=== PATIENT | female | born 1970 | race Two or more races ===

== ENCOUNTER 2019-12-03 12:30 | Outpatient (REF) | payer BC, SELFPAY ==
--- NOTE | 2019-12-03 | US_ITS ---
EXAMINATION: MM DIAGNOSTIC DIGITAL BREAST TOMOSYNTHESIS, BILATERAL US DIAGNOSTIC ULTRASOUND BREAST, BILATERAL CLINICAL INFORMATION: 49-year-old with bilateral breast pain. Also palpable area of concern mid 3:00 position right breast noted by patient. Family history breast cancer in mother and aunt. The risk of breast cancer based on the Tyrer-Cuzick Model is 11%. COMPARISON: Outside mammography 11/20/2018, 11/19/2017, 10/11/2016 ([place]). TECHNIQUE: Digital breast tomosynthesis is performed in both the craniocaudal and mediolateral oblique views along with computer-aided detection (CAD). Synthesized 2D images are generated from the tomosynthesis. Additional left MLO view is provided. Ultrasound bilateral breasts is performed using grayscale imaging and color Doppler without and with harmonics. The left breast is imaged 12:00 through 5:00 position. The right breast is imaged to o'clock through 4:00 position and 7:00 through 12:00 position. FINDINGS: Mammography: There are scattered areas of fibroglandular density (ACR BI-RADS breast composition Category b). Parenchymal pattern is similar to the prior outside studies. The left breast again has biopsy clip marker upper outer quadrant. There is no interval mass or architectural abnormality or abnormal calcifications in either breast. The right breast has stable nodule central mid 8:00 position measuring just under 1 cm. There is an adjacent satellite nodule which is decreased in size since 2017. The axilla and skin contours are unremarkable. There is no skin thickening or coarsening of the Tony's ligaments. Ultrasound: Targeted ultrasound left breast shows no cystic or solid mass or architectural abnormality. There is no focal duct ectasia. No skin thickening or edema tracking in soft tissue planes. Targeted ultrasound right breast demonstrates no architectural abnormality, duct ectasia, skin thickening, or edema tracking in soft tissue planes. There is no ultrasound correlate for patient's area of palpable concern medial breast. There are 2 circumscribed complicated cysts 9:00 position 10 cm from nipple corresponding to the chronic nodularity on mammography. The larger measures 0.6 cm and has appearance of an acorn cyst/apocrine metaplasia. No associated color flow. There is increased through transmission of sound. Results are discussed with the patient at time of visit. Patient should be managed based on the clinical impression. If clinically indicated, further evaluation may be considered with surgical consult. Decision to proceed with biopsy should be based on clinical grounds and degree of clinical concern. IMPRESSION: 1. No mammographic evidence of malignancy or focal inflammatory changes. 2. Unremarkable targeted left breast ultrasound. 3. Stable nodularity central 8:00 to 9:00 right breast similar to outside exams. No ultrasound correlate for patient's palpable concern inner quadrant. ASSESSMENT: BI-RADS 2: Benign RECOMMENDATION: 1. Patient's bilateral breast pain should be managed based on the clinical impression. If there is clinical concern for palpable finding, further evaluation may be considered with surgical consult. Decision to proceed with biopsy should be based on clinical grounds and degree of clinical concern. 2. Otherwise, routine annual screening mammography. This patient's information was entered into a reminder system with a target due date for their next mammogram.
== END 2019-12-03 12:31 | disposition home or self-care (01) ==
LOC: HO.MAMMO 12:30
PROVIDERS: Visit Provider Internal Medicine
DX: N64.4 Mastodynia (principal); Z80.3 Family history of malignant neoplasm of breast
CPT/HCPCS: 76642; 77062; 77066; 78013

== ENCOUNTER 2019-12-21 13:16 | Outpatient (REF) | payer BC, SELFPAY ==
[2019-12-21 15:01] LABS: MANUAL DIFF FLAG NO
[2019-12-21 15:12] LABS: Basophils Percent Auto 0.2 % (0-2); Eosinophils Absolute Auto 0.1 X10*3/uL (0.0-0.4); Eosinophils Percent Auto 1.3 % (0-4); Hematocrit 43.2 % (37-47); Hemoglobin 14.8 g/dl (12.0-16.0); Imm Gran Abs Auto 0.02 X10*3/uL (0.00-0.03); Imm Gran Pct Auto 0.2 % (0.0-0.4); Lymphocytes Absolute Auto 2.7 X10*3/uL (1.2-4.9); Lymphocytes Percent Auto 32.3 % (20-40); Mean Corpuscular HGB Conc 34.3 g/dl (31.0-35.0); Mean Corpuscular Hemoglobin 32.2 pg (27.0-33.0); Mean Corpuscular Volume 94.1 fL (80-98); Mean Platelet Volume 11.6 fL (9.4-12.3); Monocytes Absolute Auto 0.6 X10*3/uL (0.1-1.2); Monocytes Percent Auto 7.2 % (2-11); Neutrophils Absolute Auto 4.8 X10*3/uL (2.0-8.3); Neutrophils Percent Auto 58.8 % (45-73); Platelet Count 205 X10*3/uL (160-400); Red Blood Count 4.59 X10*6/uL (4.20-5.50); Red Cell Distribution Width 11.8 % (11.0-16.0); White Blood Count 8.2 X10*3/uL (4.8-10.8)
[2019-12-21 16:14] LABS: Erythrocyte Sedimentation Rate 10 MM/HR (0-20)
== END 2019-12-21 13:17 | disposition home or self-care (01) ==
LOC: HO.LAB 13:16
PROVIDERS: PCP Internal Medicine; Visit Provider Hospitalist
DX: R74.01 Elevation of levels of liver transaminase levels (principal)
CPT/HCPCS: 36415; 85025; 85652

== ENCOUNTER → 2019-12-25 14:00 | Outpatient (BNVA) | payer BC, SELFPAY | PROVIDERS: PCP Internal Medicine; Referring Provider Internal Medicine; Visit Provider Hospitalist | DX: Z76.89 Persons encountering health services in other specified circumstances (principal) ==

== ENCOUNTER 2020-01-07 13:49 | Outpatient (REF) | payer BC, SELFPAY ==
--- NOTE | 2020-01-07 14:21 | XR_ITS ---
EXAMINATION: XR CHEST CLINICAL INFORMATION: Pneumonia. COMPARISON: Multiple prior studies. Most recent is a chest x-ray of 11/18/2019. TECHNIQUE: 2 views of the chest were obtained. FINDINGS: The mid right lung chest mass has increased in size since the chest x-ray 06/05/2018. Lesion now measures approximately 2.[address] chest with contrast recommended for follow-up. Heart size is normal. No pulmonary vascular congestion. No pleural effusion or pneumothorax. Surgical clips right upper quadrant of abdomen. XR/XR chest 2V IMPRESSION: Right midlung chest mass again demonstrated. CT of chest with contrast recommended for follow-up. This critical result was discussed with Dr. Briggs on 01/07/2020, 3:02 PM and it was ascertained that the content and urgency of the report was understood at the time of direct communication.
[2020-01-07 14:53] LABS: Alanine Aminotransferase 19 U/L (0-31); Albumin Level 3.9 g/dL (3.5-5.0); Alkaline Phosphatase 105 U/L (39-117); Aspartate Amino Transferase 20 U/L (5-31); Bilirubin Direct 0.4 mg/dL (0.0-0.5); Bilirubin Total 0.8 mg/dL (0.0-1.0); Total Protein 6.5 g/dL (6.5-8.0)
[2020-01-07 15:24] LABS: Erythrocyte Sedimentation Rate 10 MM/HR (0-20)
[2020-01-08 12:01] LABS: Myeloperoxidase Antibody <1.0 AI; Proteinase 3 PR3 Antibodies <1.0 AI
== END 2020-01-07 13:50 | disposition home or self-care (01) ==
LOC: HO.LAB 13:49
PROVIDERS: PCP Internal Medicine; Visit Provider Hospitalist
DX: J18.9 Pneumonia, unspecified organism (principal); R74.01 Elevation of levels of liver transaminase levels; M05.9 Rheumatoid arthritis with rheumatoid factor, unspecified; D86.9 Sarcoidosis, unspecified; R06.02 Shortness of breath; R00.1 Bradycardia, unspecified; R42 Dizziness and giddiness
CPT/HCPCS: 36415; 71046; 80076; 85652; 86021; 93005

== ENCOUNTER → 2020-01-15 14:48 | Outpatient (BNVA) | payer BC, SELFPAY | PROVIDERS: PCP Internal Medicine; Referring Provider Internal Medicine; Visit Provider Hospitalist | DX: R91.8 Other nonspecific abnormal finding of lung field (principal); J18.9 Pneumonia, unspecified organism; D86.9 Sarcoidosis, unspecified; M05.9 Rheumatoid arthritis with rheumatoid factor, unspecified; Z23 Encounter for immunization | CPT/HCPCS: 90686 ==

== ENCOUNTER 2020-01-19 10:31 | Outpatient (REF) | payer BC, SELFPAY ==
[2020-01-19 12:59] LABS: MANUAL DIFF FLAG NO
[2020-01-19 13:10] LABS: Basophils Percent Auto 0.1 % (0-2); Eosinophils Absolute Auto 0.1 X10*3/uL (0.0-0.4); Hematocrit 41.1 % (37-47); Hemoglobin 14.3 g/dl (12.0-16.0); Imm Gran Abs Auto 0.03 X10*3/uL (0.00-0.03); Imm Gran Pct Auto 0.4 % (0.0-0.4); Lymphocytes Absolute Auto 1.7 X10*3/uL (1.2-4.9); Lymphocytes Percent Auto 22.1 % (20-40); Mean Corpuscular HGB Conc 34.8 g/dl (31.0-35.0); Mean Corpuscular Hemoglobin 32.1 pg (27.0-33.0); Mean Corpuscular Volume 92.2 fL (80-98); Mean Platelet Volume 11.5 fL (9.4-12.3); Monocytes Absolute Auto 0.6 X10*3/uL (0.1-1.2); Monocytes Percent Auto 8.3 % (2-11); Neutrophils Absolute Auto 5.2 X10*3/uL (2.0-8.3); Neutrophils Percent Auto 68.1 % (45-73); Platelet Count 195 X10*3/uL (160-400); Red Blood Count 4.46 X10*6/uL (4.20-5.50); Red Cell Distribution Width 11.9 % (11.0-16.0); White Blood Count 7.7 X10*3/uL (4.8-10.8)
[2020-01-19 13:48] LABS: Alanine Aminotransferase 16 U/L (0-31); Albumin Level 3.9 g/dL (3.5-5.0); Alkaline Phosphatase 107 U/L (39-117); Anion Gap 8 (12-20); Aspartate Amino Transferase 19 U/L (5-31); Blood Urea Nitrogen 14 mg/dL (9-16); C Reactive Protein 0.09 mg/dL (< or = 0.50); Calcium 8.6 mg/dL (8.4-10.2); Carbon Dioxide 30 mmol/L (22-29); Chloride 105 mmol/L (96-108); Estimated Glomerular Filt Rate > 60; Glucose Random 82 mg/dL (60-115); Potassium 4.1 mmol/l (3.3-5.1); Sodium 139 mmol/L (135-145); Total Protein 6.7 g/dL (6.5-8.0)
[2020-01-19 14:19] LABS: Erythrocyte Sedimentation Rate 16 MM/HR (0-20)
[2020-01-21 18:42] LABS: TS Negative Control Passed; TS Panel A 1; TS Panel B 0; TS Positive Control Passed; TSpotTB Negative (SeeBelow)
== END 2020-01-19 10:32 | disposition home or self-care (01) ==
LOC: HO.LAB 10:31
PROVIDERS: PCP Internal Medicine; Referring Provider Internal Medicine; Visit Provider Student in an Organized Health Care Education/Training Program
DX: M05.9 Rheumatoid arthritis with rheumatoid factor, unspecified (principal); D68.9 Coagulation defect, unspecified
CPT/HCPCS: 36415; 80053; 85025; 85652; 86140; 86481

== ENCOUNTER → 2020-01-27 08:21 | Outpatient (REF) | payer BC, SELFPAY ==
--- NOTE | 2020-01-27 08:30 | CA_ITS ---
Transthoracic Echocardiogram Patient (Last, First, Middle): Marisabel Rutherford, Gender: Female Date of : 1970 Age: 49 Procedure Date: 01/27/2020 Procedure Type: Transthoracic Echocardiogram Location: OP Height: 157.48 cm Weight: 88.45 kg BSA: 1.89 m2 Heart Rate: bpm BP: 128 / 80 mmHg Product Engineering Manager: JG Esquivel MD: Kerwin Paige MD Forming Tube Selector: Jeremy Santizo MD Symptoms: R06.02 - Shortness of breath Study Quality: Good ECG Rhythm: Sinus Conclusions: - Normal study Findings Left Ventricle Normal left ventricular size, thickness, and systolic function. The visually estimated ejection fraction is between 60-65%. Diastolic function is normal for age. Right Ventricle Normal right ventricular cavity size and systolic function. Atria Both atria are normal in size. There is no evidence of interatrial shunt. Aortic Valve Normal aortic valve structure and function. There is no aortic valve stenosis. There is no aortic valve regurgitation. Mitral Valve Normal mitral valve structure and function. There is trace mitral valve regurgitation. There is no mitral valve stenosis. Pulmonic Valve The pulmonic valve is likely normal. There is trace pulmonic valve regurgitation. Tricuspid Valve Normal tricuspid valve structure. There is trace tricuspid valve regurgitation. The right ventricular systolic pressure is normal. The right ventricular systolic pressure is 23 mmHg. Normal right atrial pressure. There is no evidence of pulmonary hypertension. Great Vessels All visible segments of the aorta are normal in size. The pulmonary artery was not well visualized. Venous The inferior vena cava is normal in size and collapses greater than 50% with inspiration. Pericardium/Pleural There is no evidence of pericardial effusion. Prior Study Comparison No prior study available for comparison. Measurements 2D Linear Measurements IVSd: 1.05 0.6-0.9/0.6-1.0 cm LVIDd: 4.91 3.9-5.3/4.2-5.9 cm LVIDd Index: 2.60 2.4-3.2/2.2-3.1 cm/m2 LVIDs: 3.07 2.0-3.6 cm LVPWd: 0.90 0.7-1.1 cm Ao Root: 3.00 2.1-3.5 cm LA Diam: 4.10 2.7-3.8/3.0-4.0 cm LAIDs Index: 2.17 1.5-2.3 cm/m2 LV Mass: 212.20 67-162/88-224 g LV Mass Index: 112.27 43-95/49-115 g/m2 LVOT Diam: 2.30 3.0+(-)1.3 cm 2D Systolic Function EF 4C: 60.00 >55% EF 2C: 56.20 >55% EF BiP: 57.20 >55% Mitral Valve MV Pk E: 0.88 MV PK A: 0.76 MV Decel Time: 204.00 E/A: 1.20 E'Lateral: 15.10 E'Medial: 10.90 E/E' Med: 8.10 E/E' Lat: 5.80 PHT: 60.00 MVA PHT: 3.67 Decel Ceiba: 4.30 Aortic Valve AoV Pk Derek: 1.38 AoV Mn Derek: 0.84 AoV VTI: 0.36 AoV Pk Grad: 8.00 Aov Mn Grad: 3.00 [place] Cont.VTI: 2.90 LVOT LVOT Pk Derek: 1.03 LVOT Mn Derek: 0.62 LVOT VTI: 0.25 LVOT Pk Grad: 4.00 LVOT Mn Grad: 2.00 LVOT Diam: 2.30 LVOT Area: 4.15 Diastolic Function MV Pk E: 0.88 MV Pk A: 0.76 E/A: 1.20 E'Medial: 10.90 E/E' Med: 8.10 E' Laterial: 15.10 E/E' Lat: 5.80 Tricuspid Valve TR Pk Derek: 2.24 TR Pk Grad: 20.00 RA Press: 3.00 RVSP: 23.00 Great Vessels Aorta Ao Root-2D: 3.00 2.0-3.7 cm Ao Asc: 3.00 2.1-3.4 cm Pulmonary Valve PV Pk Derek: 0.88 Peak PV Grad: 3.00 Updated in Other Vendor System with Status of Final Jeremy Santizo MD electronically signed on 01/27/2020 1:26:45 PM with status of Final
--- NOTE | 2020-01-27 09:30 | CA_ITS ---
Acquisition Time: 2020-01-27 11:04:27 Total Exercise Time: 00:06:50 Test Indications: sob Medications: see chart Protocol: DAYLIN Max HR: 153 BPM 88% of Pred: 173 BPM Max BP: 118/070 mmHG Max Work Load: 8.2 METS Exercise stress test using Daylin protocol, total of 6 min 50 sec. METS 8.2, MHR up to 88%. Pt tolerated well, some SOB, took her own inhalor before exercise 2 puffs. Denies any anginal sx. EKG without any arrhythmias, no ischemic changes noted. Pt's EKG hard to read at peak exercise d/t artifacts, however immediately in recovery no changes noted. Nuclear images to follow. Normotensive response to exercise. Test reviewed with Dr. Paige Referred By: Kerwin Paige Overread By: Sandra Segura
--- NOTE | 2020-01-27 10:56 | NM_ITS ---
Exercise Myocardial perfusion study Indication: Shortness of breath evaluate for myocardial ischemia Technique: The patient was brought in for an exercise perfusion study on 01/27/2020. Patient performed exercise as per [facility] protocol and was injected 30 mCi of sestamibi was given intravenously one target HR was achieved. Images were obtained using the SPECT gamma camera interlaced with the gating device. Images were obtained in supine position. Resting perfusion study was performed on 02/01/2020. Patient was administered 30 mCi of sestamibi intravenously at rest. Images were then obtained in supine position. Images obtained with and without CT attenuation. Total DLP 97 mgy-cm. Images were processed with the software and compared side to side in short axis, horizontal long axis and vertical long axis views. Findings: The stress perfusion study was suboptimal due to intense subdiaphragmatic uptake interfering with inferior wall uptake and showed minimally reduced uptake anterolateral wall of the LV myocardium and mildly reduced uptake in the distal inferior wall of the LV myocardium. Attenuation corrected mildly reduced uptake in the apex of the LV myocardium.. The gated study shows normal LV systolic function with calculated LVEF of greater than 70 %. LV cavity is normal in size. The gated study shows normal systolic wall thickening and contraction of all segments. There is no transient ischemic dilation. Resting study suboptimal due to intense subdiaphragmatic uptake interfering with inferior wall uptake and shows non attenuated images show mildly to moderately reduced uptake in the apex and the anterolateral wall of the LV myocardium. Attenuation corrected images show diffusely reduced uptake in the entire myocardium.. Gating at rest reveals normal systolic wall motion with ejection fraction at greater than 70 %. The findings are consistent with likely normal myocardial perfusion. NM/NM cardiolite stress test Impression: 1. Normal myocardial perfusion 2. Gated LVEF is greater than 70% 3. Transient ischemic dilatation not present Stress EKG is negative for ischemia
== END ==
LOC: HO.CARD 08:21
PROVIDERS: Visit Provider Internal Medicine
DX: R00.2 Palpitations (principal); R06.02 Shortness of breath
CPT/HCPCS: 78452; 93017; 93226; 93306; A9500; J2785

== ENCOUNTER → 2020-02-01 12:56 | Outpatient (REF) | payer BC, SELFPAY ==
--- NOTE | 2020-02-01 13:02 | HM_ITS ---
TEST PERFORMED: 30-day event monitoring. INDICATION: Palpitations. ENROLLMENT PERIOD: 02/01/2020 to 03/02/2020 - 30 days. FINDINGS: In the above monitoring period of 30 days, the underlying rhythm was sinus. The average rate ranged from 49 to 86 beats per minute. There was no evidence of any supraventricular or ventricular arrhythmia of concern noted during this time. Symptoms of chest pain and shortness of breath correlated with sinus rhythm on the monitor. MD MITCHEL Jackson/JJ / [id number]
== END ==
LOC: HO.CARD 12:56
PROVIDERS: PCP Internal Medicine; Visit Provider Internal Medicine
DX: R00.2 Palpitations (principal)
CPT/HCPCS: 93270

== ENCOUNTER 2020-02-04 14:52 | Outpatient (REF) | payer BC, SELFPAY ==
--- NOTE | 2020-02-04 14:54 | CT_ITS ---
EXAMINATION: CT CHEST WITHOUT CONTRAST CLINICAL INFORMATION: Right mid lung chest mass. COMPARISON: Chest x-ray 01/07/2020 and 11/18/2019. TECHNIQUE: Multidetector volumetric CT imaging of the chest was done. Axial MIP volume rendering provided. Sagittal and coronal reformatted images were obtained. This CT examination was performed using dose optimization techniques as appropriate, variously including the following: Automated exposure control Adjustment of mA and/or kV according to patient size (this includes techniques or standardized protocols for targeted exams where dose is matched to indication/reason for exam; i.e. extremities or head) Use of iterative reconstruction technique DLP: 130 mGy-cm FINDINGS: FAMILY INTERVENTION SPECIALIST: The lungs are expanded with patchy opacity in thee right parahilar region similar to the chest x-ray. LUNGS: There is a right upper lobe elongated oval-shaped mass measuring 4.0 x 2.0 x 2.2 cm. The mass has a broad base along the minor fissure and measures approximately 3.4 cm in AP dimension. Adjacent to this mass are numerous small nodules. Some of the largest nodules measure 6 mm on axial image 174/7 and a 5 mm nodule right middle lobe axial image 251/7. There is a dense parenchymal opacity of the right middle, question atelectasis. The left lung is well-expanded with plate-like atelectasis of the left upper lobe. MEDIASTINUM: The thyroid lobes are symmetrical and normal. The central trachea and bronchi are widely patent. Heart size and the great vessels are of normal caliber. There are small shotty mediastinal lymph nodes with the largest pretracheal lymph node measuring 1.1 cm. No pericardial effusion is seen. PLEURA: There is no pleural effusion. No pleural mass or thickening. AXILLA: There are small shotty lymph nodes seen in bilateral axilla with the largest lymph measuring 9 mm. UPPER ABDOMEN: Visualized liver, spleen, pancreas and bilateral adrenal glands are unremarkable. The gallbladder has been surgically removed. There are surgical sutures along the GE junction and along the greater curvature of the stomach likely from previous gastric reduction surgery. OSSEOUS STRUCTURES: There is no lytic or sclerotic process seen. CT/CT chest wo con IMPRESSION: Large right upper lobe oval-shaped mass with multiple pulmonary nodules in the right upper lobe and right middle lobe. In addition, there is a dense patchy opacity in the right middle lobe. Focal atelectasis, left upper lobe. Differential diagnoses include infectious or inflammatory process. However, primary lung cancer with metastasis is not excluded. Small shotty lymph nodes seen in the mediastinum.
== END 2020-02-04 14:53 | disposition home or self-care (01) ==
LOC: HO.CT 14:52
PROVIDERS: Visit Provider Hospitalist
DX: R91.8 Other nonspecific abnormal finding of lung field (principal)
CPT/HCPCS: 71250

== ENCOUNTER → 2020-02-05 14:59 | Outpatient (BNVA) | payer BC, SELFPAY | PROVIDERS: PCP Internal Medicine; Referring Provider Internal Medicine; Visit Provider Hospitalist | DX: Z76.89 Persons encountering health services in other specified circumstances (principal) ==

== ENCOUNTER 2020-02-09 14:26 | Outpatient (REF) | payer BC, SELFPAY ==
--- NOTE | 2020-02-09 14:44 | XR_ITS ---
EXAMINATION: XR CHEST CLINICAL INFORMATION: Interstitial pulmonary disease COMPARISON: Previous chest x-rays most recent 01/07/[address] 02/04/2020 TECHNIQUE: 2 views of the chest were obtained. FINDINGS: The cardiac and mediastinal contours are stable. There is still a right upper lobe perihilar infiltrate and infiltrate in the right lung base in the right middle lobe. This appears unchanged from recent exams. The left lung is clear. There is no pleural effusion or pneumothorax. Bony structures are unremarkable. XR/XR chest 2V IMPRESSION: No change in right-sided infiltrates from previous exam.
[2020-02-09 15:02] LABS: MANUAL DIFF FLAG NO
[2020-02-09 15:04] LABS: Basophils Percent Auto 0.3 % (0-2); Eosinophils Absolute Auto 0.1 X10*3/uL (0.0-0.4); Eosinophils Percent Auto 1.3 % (0-4); Hematocrit 43.3 % (37-47); Hemoglobin 14.9 g/dl (12.0-16.0); Imm Gran Abs Auto 0.02 X10*3/uL (0.00-0.03); Imm Gran Pct Auto 0.3 % (0.0-0.4); Lymphocytes Absolute Auto 1.6 X10*3/uL (1.2-4.9); Lymphocytes Percent Auto 23.4 % (20-40); Mean Corpuscular HGB Conc 34.4 g/dl (31.0-35.0); Mean Corpuscular Hemoglobin 31.5 pg (27.0-33.0); Mean Corpuscular Volume 91.5 fL (80-98); Mean Platelet Volume 11.1 fL (9.4-12.3); Monocytes Absolute Auto 0.6 X10*3/uL (0.1-1.2); Monocytes Percent Auto 7.8 % (2-11); Neutrophils Absolute Auto 4.7 X10*3/uL (2.0-8.3); Neutrophils Percent Auto 66.9 % (45-73); Platelet Count 214 X10*3/uL (160-400); Red Blood Count 4.73 X10*6/uL (4.20-5.50)
[2020-02-09 15:29] LABS: Alanine Aminotransferase 17 U/L (0-31); Albumin Level 4.2 g/dL (3.5-5.0); Alkaline Phosphatase 117 U/L (39-117); Anion Gap 11 (12-20); Aspartate Amino Transferase 20 U/L (5-31); Bilirubin Direct 0.4 mg/dL (0.0-0.5); Bilirubin Total 1.2 mg/dL (0.0-1.0); Blood Urea Nitrogen 11 mg/dL (9-16); Calcium 8.8 mg/dL (8.4-10.2); Carbon Dioxide 25 mmol/L (22-29); Chloride 107 mmol/L (96-108); Estimated Glomerular Filt Rate > 60; Glucose Random 87 mg/dL (60-115); Sodium 139 mmol/L (135-145); Total Protein 7.1 g/dL (6.5-8.0)
[2020-02-09 15:53] LABS: Erythrocyte Sedimentation Rate 6 MM/HR (0-20)
[2020-02-20 05:22] LABS: Angiotensin Converting Enzyme 9 U/L (9-67)
== END 2020-02-09 14:27 | disposition home or self-care (01) ==
LOC: HO.LAB 14:26
PROVIDERS: PCP Internal Medicine; Visit Provider Hospitalist
DX: J84.9 Interstitial pulmonary disease, unspecified (principal)
CPT/HCPCS: 36415; 71046; 80048; 80076; 82164; 85025; 85652

== ENCOUNTER → 2020-03-01 14:59 | Outpatient (BNVA) | payer BC, SELFPAY | PROVIDERS: PCP Internal Medicine; Visit Provider Hospitalist | DX: Z76.89 Persons encountering health services in other specified circumstances (principal) ==

== ENCOUNTER → 2020-03-02 15:26 | Outpatient (BNVA) | payer BC, SELFPAY | PROVIDERS: PCP Internal Medicine; Visit Provider Student in an Organized Health Care Education/Training Program | DX: Z76.89 Persons encountering health services in other specified circumstances (principal) ==

== ENCOUNTER 2020-03-21 14:23 | Outpatient (REF) | payer BC, SELFPAY | END 2020-03-21 14:24 | disposition home or self-care (01) | LOC: HO.LAB 14:23 | PROVIDERS: Visit Provider Internal Medicine | DX: Z20.822 Contact with and (suspected) exposure to COVID-19 (principal) | CPT/HCPCS: 36415; C9803; U0003 ==

== ENCOUNTER 2020-03-25 13:21 | Outpatient (REF) | payer BC, SELFPAY ==
[2020-03-25 13:47] LABS: MANUAL DIFF FLAG NO
[2020-03-25 14:06] LABS: Basophils Percent Auto 0.3 % (0-2); Eosinophils Absolute Auto 0.1 X10*3/uL (0.0-0.4); Eosinophils Percent Auto 1.2 % (0-4); Hematocrit 41.9 % (37-47); Hemoglobin 14.2 g/dl (12.0-16.0); Imm Gran Abs Auto 0.02 X10*3/uL (0.00-0.03); Imm Gran Pct Auto 0.3 % (0.0-0.4); Lymphocytes Absolute Auto 1.6 X10*3/uL (1.2-4.9); Lymphocytes Percent Auto 27.1 % (20-40); Mean Corpuscular HGB Conc 33.9 g/dl (31.0-35.0); Mean Corpuscular Hemoglobin 30.9 pg (27.0-33.0); Mean Corpuscular Volume 91.3 fL (80-98); Mean Platelet Volume 11.1 fL (9.4-12.3); Monocytes Absolute Auto 0.4 X10*3/uL (0.1-1.2); Monocytes Percent Auto 7.1 % (2-11); Neutrophils Absolute Auto 3.9 X10*3/uL (2.0-8.3); Platelet Count 222 X10*3/uL (160-400); Red Blood Count 4.59 X10*6/uL (4.20-5.50); Red Cell Distribution Width 11.8 % (11.0-16.0); White Blood Count 6.1 X10*3/uL (4.8-10.8)
[2020-03-25 14:37] LABS: Alanine Aminotransferase 14 U/L (0-31); Albumin Level 4.3 g/dL (3.5-5.0); Alkaline Phosphatase 96 U/L (39-117); Anion Gap 13 (12-20); Aspartate Amino Transferase 19 U/L (5-31); Bilirubin Direct 0.4 mg/dL (0.0-0.5); Bilirubin Total 1.1 mg/dL (0.0-1.0); Blood Urea Nitrogen 12 mg/dL (9-16); C Reactive Protein 0.03 mg/dL (< or = 0.50); Calcium 9.1 mg/dL (8.4-10.2); Carbon Dioxide 26 mmol/L (22-29); Chloride 106 mmol/L (96-108); Estimated Glomerular Filt Rate > 60; Glucose Random 90 mg/dL (60-115); Potassium 4.2 mmol/l (3.3-5.1); Sodium 141 mmol/L (135-145); Total Protein 7.2 g/dL (6.5-8.0)
[2020-03-25 15:14] LABS: Erythrocyte Sedimentation Rate 16 MM/HR (0-20)
[2020-03-29 12:22] LABS: Vitamin D 25-OH, D2 34 ng/mL; Vitamin D 25-OH, D3 8 ng/mL; Vitamin D 25-OH, Total 42 ng/mL (30-100)
== END 2020-03-25 13:22 | disposition home or self-care (01) ==
LOC: HO.LAB 13:21
PROVIDERS: Absent Provider Student in an Organized Health Care Education/Training Program; PCP Internal Medicine; Visit Provider Hospitalist
DX: M05.9 Rheumatoid arthritis with rheumatoid factor, unspecified (principal); J84.9 Interstitial pulmonary disease, unspecified
CPT/HCPCS: 36415; 80053; 80076; 82248; 82306; 85025; 85652; 86140

== ENCOUNTER 2020-03-29 14:39 | Outpatient (REF) | payer BC, SELFPAY ==
--- NOTE | 2020-03-29 14:46 | XR_ITS ---
EXAMINATION: XR CHEST CLINICAL INFORMATION: Interstitial pulmonary disease. COMPARISON: None TECHNIQUE: 2 views of the chest were obtained. FINDINGS: The lungs are well-expanded with focal patchy opacity in the right middle lobe and right upper lobe consistent with infiltrates. The left lung is clear. The heart size and pulmonary vascularity is normal. No gross bony abnormality seen. XR/XR chest 2V IMPRESSION: Right upper lobe and right middle lobe infiltrates.
== END 2020-03-29 14:40 | disposition home or self-care (01) ==
LOC: HO.XRAY 14:39
PROVIDERS: PCP Internal Medicine; Visit Provider Hospitalist
DX: J84.9 Interstitial pulmonary disease, unspecified (principal); D86.9 Sarcoidosis, unspecified
CPT/HCPCS: 71046

== ENCOUNTER 2020-04-14 08:01 | Outpatient (REF) | payer BC, SELFPAY ==
--- NOTE | ~2020-04-14 | CT_ITS ---
EXAMINATION: CT CHEST WITH CONTRAST CLINICAL INFORMATION: Right upper lobe and right middle lobe infiltrates. COMPARISON: Chest x-ray 03/29/2020. TECHNIQUE: Multidetector volumetric CT imaging of the chest was obtained after the administration of 50 mL of Omnipaque 350 intravenous contrast without immediate adverse reactions. Axial MIP volume rendering provided. Sagittal and coronal reformatted images were obtained. This CT examination was performed using dose optimization techniques as appropriate, variously including the following: *Automated exposure control *Adjustment of mA and/or kV according to patient size (this includes techniques or standardized protocols for targeted exams where dose is matched to indication/reason for exam; i.e. extremities or head) *Use of iterative reconstruction technique DLP: 119 mGy-cm FINDINGS: MALE IMPERSONATOR: Expanded lungs with a right parahilar soft tissue density. LUNGS: The lungs are well expanded with moderate consolidation right upper lobe parahilar region and right lower lobe. There is a 4 mm nodule right upper lobe at the junction of major and minor fissure, image 26/4, 3 mm nodule right upper lobe axial image 16/4, ill-defined 2 mm nodule left upper lobe image 18/4 and clusters of 3 mm nodules in the right upper lobe image 24/4. MEDIASTINUM: The thyroid lobes are symmetrical with hypodense left thyroid nodule. The central trachea and bronchi are widely patent. The heart size and the great vessels are normal caliber. No pericardial effusion seen. PLEURA: There is no pleural effusion. No pleural mass or thickening. AXILLA: There are small shotty lymph nodes in the axilla. UPPER ABDOMEN: Visualized liver, spleen, pancreas and adrenal glands are unremarkable. The gallbladder has been surgically removed. OSSEOUS STRUCTURES: Mild spondylosis dorsal spine. CT/CT chest w con IMPRESSION: Right upper lobe and right middle lobe consolidation/infiltrates. Scattered pulmonary lung nodules as described above.
[2020-04-14] MEDS: iohexoL 350 MG/ML 100 ML INFUS..BTL 65 ML IV (09:08)
== END 2020-04-14 08:02 | disposition home or self-care (01) ==
LOC: HO.CT 08:01
PROVIDERS: Visit Provider Hospitalist
DX: R91.8 Other nonspecific abnormal finding of lung field (principal); R59.1 Generalized enlarged lymph nodes
CPT/HCPCS: 71260; Q9967

== ENCOUNTER 2020-04-28 15:37 | Outpatient (REF) | payer BC, SELFPAY ==
[2020-04-28 17:02] LABS: MANUAL DIFF FLAG NO
[2020-04-28 17:12] LABS: Basophils Percent Auto 0.3 % (0-2); Eosinophils Absolute Auto 0.1 X10*3/uL (0.0-0.4); Eosinophils Percent Auto 0.9 % (0-4); Hematocrit 41.3 % (37-47); Hemoglobin 14.4 g/dl (12.0-16.0); Imm Gran Abs Auto 0.01 X10*3/uL (0.00-0.03); Imm Gran Pct Auto 0.1 % (0.0-0.4); Lymphocytes Absolute Auto 1.9 X10*3/uL (1.2-4.9); Lymphocytes Percent Auto 28.3 % (20-40); Mean Corpuscular HGB Conc 34.9 g/dl (31.0-35.0); Mean Corpuscular Hemoglobin 31.5 pg (27.0-33.0); Mean Corpuscular Volume 90.4 fL (80-98); Mean Platelet Volume 11.4 fL (9.4-12.3); Monocytes Absolute Auto 0.5 X10*3/uL (0.1-1.2); Monocytes Percent Auto 7.3 % (2-11); Neutrophils Absolute Auto 4.3 X10*3/uL (2.0-8.3); Neutrophils Percent Auto 63.1 % (45-73); Platelet Count 215 X10*3/uL (160-400); Red Blood Count 4.57 X10*6/uL (4.20-5.50); Red Cell Distribution Width 11.9 % (11.0-16.0); White Blood Count 6.7 X10*3/uL (4.8-10.8)
[2020-04-28 17:32] LABS: Alanine Aminotransferase 21 U/L (0-31); Albumin Level 4.3 g/dL (3.5-5.0); Alkaline Phosphatase 107 U/L (39-117); Anion Gap 15 (12-20); Aspartate Amino Transferase 23 U/L (5-31); Bilirubin Direct 0.4 mg/dL (0.0-0.5); Bilirubin Total 1.1 mg/dL (0.0-1.0); Blood Urea Nitrogen 13 mg/dL (9-16); C Reactive Protein 0.08 mg/dL (< or = 0.50); Calcium 9.3 mg/dL (8.4-10.2); Carbon Dioxide 26 mmol/L (22-29); Chloride 106 mmol/L (96-108); Estimated Glomerular Filt Rate > 60; Glucose Random 89 mg/dL (60-115); Lipase 27 U/L (8-78); Potassium 4.5 mmol/L (3.3-5.1); Sodium 142 mmol/L (135-145); Total Protein 7.5 g/dL (6.5-8.0)
[2020-04-28 18:16] LABS: Erythrocyte Sedimentation Rate 19 MM/HR (0-20)
[2020-05-01 15:11] LABS: TS Negative Control Passed; TS Panel A 0; TS Panel B 0; TS Positive Control Passed; TSpotTB Negative (SeeBelow)
== END 2020-04-28 15:38 | disposition home or self-care (01) ==
LOC: HO.LAB 15:37
PROVIDERS: Student in an Organized Health Care Education/Training Program; PCP Internal Medicine; Visit Provider Hospitalist
DX: J84.9 Interstitial pulmonary disease, unspecified (principal); R91.8 Other nonspecific abnormal finding of lung field; M05.9 Rheumatoid arthritis with rheumatoid factor, unspecified; D86.2 Sarcoidosis of lung with sarcoidosis of lymph nodes; R10.11 Right upper quadrant pain; Z88.8 Allergy status to other drugs, medicaments and biological substances; Z87.891 Personal history of nicotine dependence; Z79.899 Other long term (current) drug therapy
CPT/HCPCS: 36415; 80053; 80076; 82248; 83690; 85025; 85652; 86140; 86481

== ENCOUNTER → 2020-05-06 09:51 | Outpatient (BNVA) | payer BC, SELFPAY | PROVIDERS: PCP Internal Medicine; Visit Provider Surgery | DX: Z13.89 Encounter for screening for other disorder (principal) | CPT/HCPCS: 99215 ==

== ENCOUNTER 2020-05-12 13:58 | Outpatient (REF) | payer BC, SELFPAY ==
--- NOTE | 2020-05-12 17:13 | PFT_ITS ---
FLOWS: FEV1 is 73% of predicted at 1.95 L. FVC 70% of predicted at 2.28 L. FEV1 to FVC ratio of 0.85. No bronchodilator response. LUNG VOLUMES: Total lung capacity 78% of predicted at 3.72 L. Residual volume 85% of predicted at 1.39 L. Slow vital capacity 75% of predicted at 2.33 L. Expiratory reserve volume 42% of predicted at 0.42 L. Diffusion capacity is mildly decreased, diffusion capacity just normal after correction for alveolar ventilation. IMPRESSION: [id number] restrictive ventilatory defect with no bronchodilator response. Decreased expiratory reserve volume suggests extrathoracic restriction, likely secondary to abdominal obesity. Decreased diffusion capacity. Severe decrease in total lung capacity suggests underlying parenchymal lung disease. Clinical correlation is advised. Tanmay Urban MD AP/MODL / [id number]
== END 2020-05-12 13:59 | disposition home or self-care (01) ==
LOC: HO.RESP 13:58
PROVIDERS: Visit Provider Surgery
DX: J84.9 Interstitial pulmonary disease, unspecified (principal)
CPT/HCPCS: 94060; 94727; 94729

== ENCOUNTER → 2020-07-14 14:35 | Outpatient (BNVA) | payer BC, SELFPAY | PROVIDERS: PCP Internal Medicine; Visit Provider Hospitalist ==

== ENCOUNTER 2020-09-19 16:11 | Outpatient (REF) | payer BC, SELFPAY ==
--- NOTE | ~2020-09-19 | XR_ITS ---
EXAMINATION: XR CHEST CLINICAL INFORMATION: Interstitial pulmonary disease COMPARISON: Previous chest x-ray most recent March [address] most recent April 2020 TECHNIQUE: 2 views of the chest were obtained. FINDINGS: The cardiac and mediastinal contours are stable. There is a mass or infiltrate seen in the right middle lobe. This does not appear appreciably changed from March and April 2020 exams. The left lung is clear. There is no pleural effusion or pneumothorax. Bony structures are unremarkable. XR/XR chest 2V IMPRESSION: No change in mass or infiltrate in the right middle lobe from earlier 2020 exams.
--- NOTE | ~2020-09-19 | XR_ITS ---
EXAMINATION: XR ANKLE, RIGHT CLINICAL INFORMATION: Right ankle pain. COMPARISON: None TECHNIQUE: AP, lateral, and mortise views of the right ankle. FINDINGS: There is moderate size lateral malleolar soft tissue swelling. Ankle mortise and subtalar joints are normal. There is a moderate size calcaneal heel enthesophyte. There is a small avulsion fracture tip of medial malleolus. XR/XR ankle RT 2V IMPRESSION: Moderate size lateral malleolar soft tissue swelling. No underlying acute fracture or dislocation. Small avulsion fracture tip of medial malleolus. Moderate-sized calcaneal heel enthesophyte.
[2020-09-19 17:09] LABS: MANUAL DIFF FLAG NO
[2020-09-19 17:14] LABS: Basophils Percent Auto 0.1 % (0-2); Eosinophils Absolute Auto 0.1 X10*3/uL (0.0-0.4); Eosinophils Percent Auto 1.7 % (0-4); Hematocrit 36.9 % (37-47); Hemoglobin 12.9 g/dl (12.0-16.0); Imm Gran Abs Auto 0.02 X10*3/uL (0.00-0.03); Imm Gran Pct Auto 0.3 % (0.0-0.4); Lymphocytes Absolute Auto 1.8 X10*3/uL (1.2-4.9); Mean Corpuscular Hemoglobin 32.2 pg (27.0-33.0); Mean Platelet Volume 11.1 fL (9.4-12.3); Monocytes Absolute Auto 0.6 X10*3/uL (0.1-1.2); Monocytes Percent Auto 7.6 % (2-11); Neutrophils Absolute Auto 4.7 X10*3/uL (2.0-8.3); Neutrophils Percent Auto 65.3 % (45-73); Platelet Count 205 X10*3/uL (160-400); Red Blood Count 4.01 X10*6/uL (4.20-5.50); Red Cell Distribution Width 12.2 % (11.0-16.0); White Blood Count 7.2 X10*3/uL (4.8-10.8)
[2020-09-19 17:29] LABS: Anion Gap 10 (12-20); Blood Urea Nitrogen 12 mg/dL (9-16); Carbon Dioxide 27 mmol/L (22-29); Chloride 109 mmol/L (96-108); Estimated Glomerular Filt Rate > 60; Glucose Random 85 mg/dL (60-115); Potassium 3.8 mmol/L (3.3-5.1); Sodium 142 mmol/L (135-145); Uric Acid 3.6 mg/dL (2.4-5.7)
[2020-09-19 19:03] LABS: Erythrocyte Sedimentation Rate 14 MM/HR (0-20)
== END 2020-09-19 16:12 | disposition home or self-care (01) ==
LOC: HO.LAB 16:11
PROVIDERS: Absent Provider Student in an Organized Health Care Education/Training Program; PCP Internal Medicine; Referring Provider Hospitalist; Visit Provider Internal Medicine
DX: M10.9 Gout, unspecified (principal); J84.9 Interstitial pulmonary disease, unspecified; M25.571 Pain in right ankle and joints of right foot; M05.9 Rheumatoid arthritis with rheumatoid factor, unspecified
CPT/HCPCS: 36415; 71046; 73600; 80048; 84550; 85025; 85652

== ENCOUNTER 2020-09-22 21:25 | Emergency (ER) | payer BC, SELFPAY ==
[2020-09-22 22:26] VITALS: BP 146/79; PULSE 18; RESP 18; TEMP 36.7; O2SAT 100; BMI 33.5
[2020-09-22] MEDS: Acetaminophen 325 MG TABLET 650 MG PO (22:36)
--- NOTE | 2020-09-22 23:58 | ED.LOWEXIN ---
HPI - Extremity Injury (Lower) General Chief Complaint: Extremity Injury, Lower Stated Complaint: ANKLE INJ Time Seen by Provider: 09/22/20 23:58 Source: patient Mode of arrival: ambulatory Limitations: no limitations History of Present Illness HPI Narrative: 50-year-old female presents from her primary care's office for known right lateral malleolar avulsion fracture. Patient does report right ankle and foot pain. MD complaint: foot injury Onset (ago): day(s) (To) Type of Injury: unknown Place: home Severity: moderate Severity scale (1-10): 7 Relieving factors: nothing Exacerbating factors: weight bearing and palpation Associated symptoms: swelling and able to partially bear weight Other symptoms: none Related Data Home Medications Medication Instructions Recorded Confirmed albuterol sulfate mg INHALATION Q6H PRN 12/25/19 09/19/20 cholecalciferol (vitamin D3) 1,250 1,250 mcg PO QWEEK 12/25/19 09/19/20 mcg (50,000 unit) capsule cyanocobalamin (vitamin B-12) 1,000 mcg SUBLINGUAL DAILY 12/25/19 09/19/20 1,000 mcg sublingual tablet ergocalciferol (vitamin D2) 1,250 1,250 mcg PO QWEEK 12/25/19 09/19/20 mcg (50,000 unit) capsule trazodone 50 mg tablet [id number] mg PO BEDTIME PRN 12/25/19 09/19/20 tiotropium bromide 18 mcg capsule 1 cap INHALATION DAILY 01/15/20 09/19/20 with inhalation device prednisone 5 mg tablet 5 mg PO DAILY tab 01/19/20 09/19/20 sucralfate 1 gram tablet PO 02/05/20 09/19/20 mecobalamin (vitamin B12) 1,000 1,000 mcg SUBLINGUAL DAILY 09/19/20 09/19/20 mcg disintegrating tablet,sublingual Previous Rx's Medication Instructions Recorded omeprazole 40 mg capsule,delayed 40 mg PO DAILY 90 Days #90 cap 01/05/20 release albuterol sulfate 90 mcg/actuation 2 puff PO Q6H PRN #8.5 g 01/12/20 aerosol inhaler mycophenolate mofetil 500 mg tablet 500 mg PO BID 30 Days #60 tab 02/05/20 folic acid 1 mg tablet 2 mg PO DAILY #180 tab 02/19/20 hydroxychloroquine 200 mg tablet 200 mg PO DAILY 90 Days #90 tab 02/21/20 prednisone 10 mg tablet 20 mg PO DAILY 30 Days #60 tab 03/07/20 polyethylene glycol 3350 17 17 g PO DAILY 30 Days #510 g 03/29/20 gram/dose oral powder sarilumab 200 mg/1.14 mL 200 mg SUBCUT Q2W #2.28 ml 03/30/20 subcutaneous pen injector docusate sodium 100 mg capsule 100 mg PO DAILY 30 Days #30 cap 04/01/20 ibuprofen 100 mg/5 mL oral 200 mg PO Q6H PRN #250 ml 04/29/20 suspension eszopiclone 1 mg tablet 1 mg PO BEDTIME 90 Days #90 tab 05/17/20 azithromycin 250 mg tablet 250 mg PO 3XW 28 Days #12 tab 07/14/20 oxycodone 5 mg capsule 5 mg PO Q8H PRN 10 Days #30 cap 07/14/20 budesonide-formoterol HFA 160 2 puff PO BID #30.6 g 07/25/20 mcg-4.5 mcg/actuation aerosol inhaler gabapentin 300 mg capsule 600 mg PO BEDTIME #60 cap 08/31/20 tramadol 50 mg tablet 50 mg PO Q8H PRN #20 tab 09/19/20 ondansetron HCl 4 mg tablet 4 mg PO Q8H PRN 14 Days #30 tab 09/21/20 tramadol 50 mg tablet 50 mg PO Q8H PRN #20 tab 09/21/20 ibuprofen 600 mg PO Q6H PRN #60 tab 09/23/20 Allergies Allergy/AdvReac Type Severity Reaction Status Date / Time levofloxacin Allergy Severe hives Verified 09/22/20 22:26 Review of Systems Review of Systems: Constitutional: No Fever, No Chills ENT/Mouth: No Ear Pain, No Hoarseness, No sore throat Eyes: No Eye Pain, No Swelling, No Redness, No Foreign Body Cardiovascular: No Chest Pain, No SOB Respiratory: No Cough, No Dyspnea Gastrointestinal: No Nausea, No Vomiting, No Diarrhea, No abdominal Pain Genitourinary: No Dysuria, No Hematuria Musculoskeletal: positive right ankle pain, No Myalgias, No Joint Swelling Skin: No Skin lacerations, No rash Neuro: No Weakness, No Numbness, No Paresthesias, No Loss of Consciousness, No Dizziness, No Headache Psych: No Anxiety/Panic, No Depression Heme/Lymph: no easy bruising, no Lymphadenopathy Endocrine: No Polyuria, No Polydipsia Yes all other systems are reviewed and are negative [facility] Past Medical History Attestation statement: The following information was validated with the patient. Source: old records reviewed Medical History Chest pain ILD (interstitial lung disease) Insomnia Lung mass Lymphadenopathy Pneumonia Rheumatoid arthritis RUQ pain Sarcoidosis Sarcoidosis Seropositive rheumatoid arthritis Thyroid nodule Transaminitis Surgical History History of breast biopsy History of section History of cholecystectomy History of hysterectomy History of laparoscopic adjustable gastric banding History of lung surgery History of tubal ligation Hx of abdominoplasty Family History Family History Father Cardiovascular disease Mother Cardiovascular disease Hypertension Social History Social History Housing: House Alcohol intake: never Patient Tobacco Use Status: Never used Tobacco Years Smoked: 15 years Advance Directives: No Advance Directives Information Provided: No Patient : No Current occupational status: unemployed Physical Exam Vital Signs: Vital Signs: Last Vital Signs Temp 98.1 F 09/22/20 22:26 Pulse 18 L 09/22/20 22:26 Resp 18 09/22/20 22:26 BP 146/79 H 09/22/20 22:26 Pulse Ox 100 09/22/20 22:26 Body Mass Index 33.5 Appearance: Alert. Oriented X3. No acute distress. Eyes: Pupils equal, round and reactive to light. ENT: Pharynx normal. Neck: Normal inspection. Neck supple. CVS: Normal heart rate and rhythm. Pulses normal. Respiratory: No respiratory distress. Breath sounds normal. Abdomen: Soft and nontender. Skin: Skin warm and dry. Normal skin color. Normal skin turgor. Extremities: No lower extremity edema. Tenderness to the right lateral malleolar process, decreased range of motion secondary to pain and swelling. Neuro: No motor deficit. No sensory deficit. Course Course Course Narrative: 50-year-old female presents with known avulsion fracture to the right lateral malleolar process. Patient does have brisk capillary refill, equal pedal pulses. Will splint and discharged home. Approximately 30 minute status post splint placement, toes remain neurovascularly intact with brisk capillary refill. Will have patient follow up with Orthopedics, crutches and nonweightbearing. Patient verbalized understanding of and agrees to plan of care discharge home. MDM - Extremity Injury (Lower) MDM Narrative Medical decision making narrative: Avulsion fracture Differential Diagnosis Differential diagnosis: Likely ankle sprain and strain Medical Records Attestation: I reviewed the patient's medical records. Imaging Data Ankle x-ray: Attestation: I personally reviewed and interpreted this imaging study as follows: Radiologist's impression: EXAMINATION: XR ANKLE, RIGHT CLINICAL INFORMATION: Right ankle pain. COMPARISON: None TECHNIQUE: AP, lateral, and mortise views of the right ankle. FINDINGS: There is moderate size lateral malleolar soft tissue swelling. Ankle mortise and subtalar joints are normal. There is a moderate size calcaneal heel enthesophyte. There is a small avulsion fracture tip of medial malleolus. XR/XR ankle RT 2V IMPRESSION: Moderate size lateral malleolar soft tissue swelling. No underlying acute fracture or dislocation. Small avulsion fracture tip of medial malleolus. Moderate-sized calcaneal heel enthesophyte. Discharge Plan Discharge Clinical Impression: Ankle fracture Qualifiers: Encounter type: initial encounter Fracture type: closed Laterality: right Qualified Code(s): S82.891A - Other fracture of right lower leg, initial encounter for closed fracture Patient Disposition: Home, Self-Care Instructions: Ankle Fracture (ED), R.I.C.E. Treatment (ED) Additional Instructions: You were evaluated for right ankle pain. X-rays that were completed by her primary care physician indicated a right malleolar avulsion fracture. We placed you in a splint. Please keep the splint in place until you see Orthopedics. Please call Orthopedics in the morning and request an appointment. Do not put weight on this foot. You must use crutches for all ambulation. Thank you for choosing this emergency department for evaluation. Please follow-up with primary care physician as needed. Return to the emergency department for any new, concerning, or worsening symptoms. Prescriptions: New ibuprofen 600 mg tablet 600 mg PO Q6H PRN (Reason: pain) Qty: 60 RF: 0 No Action omeprazole 40 mg capsule,delayed release(DR/EC) 40 mg PO DAILY 90 Days Qty: 90 RF: 1 albuterol sulfate 90 mcg/actuation HFA aerosol inhaler 2 puff PO Q6H PRN (Reason: shortness of breath or wheezing) Qty: 8.5 RF: 9 folic acid 1 mg tablet 2 mg PO DAILY Qty: 180 RF: 1 hydroxychloroquine [Plaquenil] 200 mg tablet 200 mg PO DAILY 90 Days Qty: 90 RF: 3 prednisone 10 mg tablet 20 mg PO DAILY 30 Days Qty: 60 RF: 6 Kevzara 200 mg/1.14 mL pen injector 200 mg subcut Q2W Qty: 2.28 RF: 3 docusate sodium [Colace] 100 mg capsule 100 mg PO DAILY 30 Days Qty: 30 RF: 2 eszopiclone [Lunesta] 1 mg tablet 1 mg PO BEDTIME 90 Days Qty: 90 RF: 0 budesonide-formoterol 160-4.5 mcg/actuation HFA aerosol inhaler 2 puff PO BID Qty: 30.6 RF: 3 gabapentin 300 mg capsule 600 mg PO BEDTIME Qty: 60 RF: 5 tramadol 50 mg tablet 50 mg PO Q8H PRN (Reason: pain) Qty: 20 RF: 0 ondansetron HCl [Zofran] 4 mg tablet 4 mg PO Q8H PRN (Reason: nausea and vomiting) 14 Days Qty: 30 RF: 2 ibuprofen 100 mg/5 mL suspension 200 mg PO Q6H PRN (Reason: pain) Qty: 250 RF: 5 mecobalamin (vitamin B12) 1,000 mcg tablet,disintegrating 1,000 mcg sublingual DAILY RF: 0 tramadol 50 mg tablet 50 mg PO Q8H PRN (Reason: pain) Qty: 20 RF: 0 albuterol sulfate 2.5 mg /3 mL (0.083 %) solution for nebulization inhalation Q6H PRNRF: 0 trazodone 50 mg tablet [id number] mg PO BEDTIME PRN (Reason: insomnia) RF: 0 cyanocobalamin (vitamin B-12) 1,000 mcg tablet, sublingual 1,000 mcg sublingual DAILY RF: 0 ergocalciferol (vitamin D2) 1,250 mcg (50,000 unit) capsule 1,250 mcg PO QWEEK RF: 0 cholecalciferol (vitamin D3) 1,250 mcg (50,000 unit) capsule 1,250 mcg PO QWEEK RF: 0 tiotropium bromide 18 mcg capsule, w/inhalation device 1 cap inhalation DAILY RF: 0 prednisone 5 mg tablet 5 mg PO DAILY RF: 0 azithromycin 250 mg tablet 250 mg PO 3XW 28 Days Qty: 12 RF: 6 oxycodone 5 mg capsule 5 mg PO Q8H PRN (Reason: pain) 10 Days Qty: 30 RF: 0 sucralfate 1 gram tablet PO RF: 0 mycophenolate mofetil [CellCept] 500 mg tablet 500 mg PO BID 30 Days Qty: 60 RF: 6 polyethylene glycol 3350 [Miralax] 17 gram/dose powder 17 g PO DAILY 30 Days Qty: 510 RF: 3 Referrals: Delmis Jaramillo PA-C [Physician Chief Projectionist] - 2 days (Right lateral malleolar avulsion fracture)
--- NOTE | 2020-09-23 01:53 | PC.NURSE ---
SPLINT PLACE TO RIGHT ANKLE POSTERIOR SHORT AND STIRRUP +CMS CHECKED BY PRAVIN RICHMOND.
== END 2020-09-23 01:31 | disposition home or self-care (01) ==
PROVIDERS: Emergency Provider Emergency Medicine; PCP Internal Medicine
DX: S82.891A Other fracture of right lower leg, initial encounter for closed fracture (principal); M79.661 Pain in right lower leg; M25.571 Pain in right ankle and joints of right foot; X58.XXXA Exposure to other specified factors, initial encounter; Y93.9 Activity, unspecified; Y92.9 Unspecified place or not applicable; Y99.9 Unspecified external cause status; Z79.899 Other long term (current) drug therapy; Z87.891 Personal history of nicotine dependence
CPT/HCPCS: 29505; 99284

== ENCOUNTER → 2020-09-28 08:50 | Outpatient (BNVA) | payer BC, SELFPAY | PROVIDERS: PCP Internal Medicine; Visit Provider Physician Assistant ==

== ENCOUNTER → 2020-09-29 15:08 | Outpatient (BNVA) | payer BC, SELFPAY | PROVIDERS: PCP Internal Medicine; Visit Provider Hospitalist ==

== ENCOUNTER 2020-10-18 14:56 | Outpatient (REF) | payer BC, SELFPAY ==
--- NOTE | ~2020-10-18 | CT_ITS ---
EXAMINATION: CT CHEST WITHOUT CONTRAST CLINICAL INFORMATION: Interstitial pulmonary disease. COMPARISON: Multiple priors, most recent chest radiograph dated 09/19/[address] chest dated 04/14/2020. TECHNIQUE: Multidetector volumetric CT imaging of the chest was done. Axial MIP volume rendering provided. Sagittal and coronal reformatted images were obtained. This CT examination was performed using dose optimization techniques as appropriate, variously including the following: *Automated exposure control *Adjustment of mA and/or kV according to patient size (this includes techniques or standardized protocols for targeted exams where dose is matched to indication/reason for exam; i.e. extremities or head) *Use of iterative reconstruction technique DLP: 157 mGy-cm. FINDINGS: TIRE BUSTER: Unremarkable. LUNGS: There are linear sutures in the region of the right middle lobe consistent with interval surgery. Redemonstration of an irregular soft tissue focus within the right middle lobe measuring 2.2 x 3.7 x 2.1 cm (AP x ML x CC). This previously measured approximately 1.9 x 2.8 x 1.6 cm. There has been interval resection of the more inferomedial nodular density that was previously seen within the right middle lobe. Again noted is superior extension of reticular nodular and ground-glass densities, slightly increased in prominence when compared to the prior examination in the right upper lobe. No new left lung airspace opacity. The central airways are patent. MEDIASTINUM: No cardiomegaly. No pericardial effusion. No thoracic aortic dilatation. Prominent superior mediastinal lymph nodes with the largest of the right of the distal trachea measuring 1.5 x 1.2 cm (previously 1.5 x 1.2 cm). No increasing lymphadenopathy. Partially visualized and heterogeneous thyroid. PLEURA: No pleural effusion or pneumothorax. AXILLA: No lymphadenopathy. UPPER ABDOMEN: Status post cholecystectomy. Status post sleeve gastrectomy. Otherwise, the visualized upper abdominal structures are unremarkable. OSSEOUS STRUCTURES: Unremarkable. CT/CT chest wo con IMPRESSION: 1. Surgical sutures related to interval resection of the previously seen right middle lobe nodular density. The adjacent more superior right middle lobe nodular density is redemonstrated, slightly increased in size when compared to the prior examination now measuring 2.2 x 3.7 x 2.1 cm (previously 1.9 x 2.8 x 1.6 cm). Adjacent reticulonodular densities and ground-glass densities extending superiorly into the right upper lobe have also slightly increased in prominence. 2. No new left-sided airspace consolidation. No pleural effusion or pneumothorax. 3. Stable superior mediastinal lymphadenopathy. No new or increasing lymphadenopathy.
== END 2020-10-18 14:57 | disposition home or self-care (01) ==
LOC: HO.CT 14:56
PROVIDERS: Visit Provider Hospitalist
DX: J84.9 Interstitial pulmonary disease, unspecified (principal); R91.8 Other nonspecific abnormal finding of lung field
CPT/HCPCS: 71250

== ENCOUNTER 2020-10-24 15:15 | Outpatient (REF) | payer BC, SELFPAY ==
--- NOTE | ~2020-10-24 | XR_ITS ---
EXAMINATION: XR ANKLE, RIGHT CLINICAL INFORMATION: Right ankle pain. COMPARISON: 09/19/2020 right ankle radiographs. TECHNIQUE: AP, lateral, and mortise views of the right ankle. FINDINGS: Again seen is a small avulsion fracture off of the inferior margin of the medial malleolus. A similar nondisplaced avulsion fracture off of the inferior margin of the lateral malleolus cannot be excluded. The tibiotalar joint space is unremarkable. The tarsal bones are normally aligned. There is a small plantar calcaneal spur. Mild to moderate soft tissue swelling is seen. XR/XR ankle RT 2V IMPRESSION: 1. Small avulsion fracture off of the inferior margin of the medial malleolus is similar to the previous study without significant interval healing. A similar, nondisplaced avulsion fracture off of the inferior margin of the lateral malleolus cannot be excluded. The overall appearance is not significantly changed. 3. Mild to moderate soft tissue swelling represents mild interval decrease.
== END 2020-10-24 15:16 | disposition home or self-care (01) ==
LOC: HO.XRAY 15:15
PROVIDERS: Absent Provider Physician Assistant; PCP Internal Medicine; Visit Provider Hospitalist
DX: S93.401A Sprain of unspecified ligament of right ankle, initial encounter (principal); J84.9 Interstitial pulmonary disease, unspecified; M05.9 Rheumatoid arthritis with rheumatoid factor, unspecified; R91.8 Other nonspecific abnormal finding of lung field
CPT/HCPCS: 73600

== ENCOUNTER → 2020-10-26 13:51 | Outpatient (BNVA) | payer BC, SELFPAY | PROVIDERS: Visit Provider Physician Assistant ==

== ENCOUNTER → 2020-12-15 14:58 | Outpatient (BNVA) | payer BC, SELFPAY | PROVIDERS: PCP Internal Medicine; Visit Provider Hospitalist ==

== ENCOUNTER → 2021-01-16 15:41 | Outpatient (REF) | payer BC, SELFPAY ==
[2021-01-16 16:01] LABS: MANUAL DIFF FLAG NO
[2021-01-16 16:50] LABS: Basophils Percent Auto 0.3 % (0-2); Eosinophils Absolute Auto 0.1 X10*3/uL (0.0-0.4); Eosinophils Percent Auto 1.5 % (0-4); Hematocrit 39.4 % (37.0-47.0); Hemoglobin 13.8 g/dl (12.0-16.0); Imm Gran Abs Auto 0.01 X10*3/uL (0.00-0.03); Imm Gran Pct Auto 0.1 % (0.0-0.4); Lymphocytes Absolute Auto 1.5 X10*3/uL (1.2-4.9); Lymphocytes Percent Auto 21.6 % (20-40); Mean Corpuscular Hemoglobin 31.7 pg (27.0-33.0); Mean Corpuscular Volume 90.4 fL (80.0-98.0); Monocytes Absolute Auto 0.5 X10*3/uL (0.1-1.2); Monocytes Percent Auto 6.7 % (2-11); Neutrophils Absolute Auto 4.7 x10*3/uL (2.0-8.3); Neutrophils Percent Auto 69.8 % (45-73); Platelet Count 241 X10*3/uL (160-400); Red Blood Count 4.36 X10*6/uL (4.20-5.50); Red Cell Distribution Width 11.9 % (11.0-16.0); White Blood Count 6.8 X10*3/uL (4.8-10.8)
[2021-01-16 17:48] LABS: Alanine Aminotransferase 15 U/L (0-31); Albumin Level 4.1 g/dL (3.5-5.0); Alkaline Phosphatase 95 U/L (39-117); Anion Gap 12 (12-20); Aspartate Amino Transferase 20 U/L (5-31); Bilirubin Direct 0.3 mg/dL (0.0-0.5); Blood Urea Nitrogen 12 mg/dL (9-16); Calcium 9.1 mg/dL (8.4-10.2); Carbon Dioxide 27 mmol/L (22-29); Chloride 106 mmol/L (96-108); Estimated Glomerular Filt Rate > 60; Glucose Random 93 mg/dL (60-115); Potassium 4.4 mmol/L (3.3-5.1); Sodium 141 mmol/L (135-145)
[2021-01-16 17:54] LABS: Erythrocyte Sedimentation Rate 13 MM/HR (0-20)
== END ==
LOC: HO.SL 15:41
PROVIDERS: PCP Internal Medicine; Visit Provider Hospitalist
DX: D86.85 Sarcoid myocarditis (principal); G47.33 Obstructive sleep apnea (adult) (pediatric)
CPT/HCPCS: 36415; 80048; 80076; 85025; 85652; 95806

== ENCOUNTER 2021-02-01 13:04 | Emergency (ER) | payer BC, SELFPAY ==
[2021-02-01 13:46] VITALS: BP 121/61; PULSE 71; RESP 20; TEMP 36.6; O2SAT 99; BMI 33.6
--- NOTE | 2021-02-01 13:50 | ECG_ITS ---
Test Reason : CHEST PAIN Blood Pressure : / mmHG Vent. Rate : 062 BPM Atrial Rate : 062 BPM P-R Int : 150 ms QRS Dur : 070 ms QT Int : 386 ms P-R-T Axes : 040 014 033 degrees QTc Int : 391 ms Normal sinus rhythm Normal ECG No previous ECGs available Referred By: Generic ED Physician Electronically Signed By:LUIZA BERUMEN
[2021-02-01 14:18] LABS: Hematocrit 41.4 % (37.0-47.0); Hemoglobin 14.1 g/dl (12.0-16.0); Mean Corpuscular HGB Conc 34.1 g/dl (31.0-35.0); Mean Corpuscular Hemoglobin 31.8 pg (27.0-33.0); Mean Corpuscular Volume 93.5 fL (80.0-98.0); Mean Platelet Volume 10.4 fL (9.4-12.3); Platelet Count 244 X10*3/uL (160-400); Red Blood Count 4.43 X10*6/uL (4.20-5.50); Red Cell Distribution Width 12.2 % (11.0-16.0); White Blood Count 6.7 X10*3/uL (4.8-10.8)
--- NOTE | 2021-02-01 14:22 | ED.CHESTPAIN ---
HPI - Chest Pain General Chief Complaint: Chest Pain Stated Complaint: sob Time Seen by Provider: 02/01/21 14:22 Source: patient Mode of arrival: ambulatory Limitations: no limitations History of Present Illness HPI narrative: patient has a dry cough but prior to coughing she had chest pain. This is worse with lying down. Patient had CT at [facility] and was told that she had pneumonia. CT showed large right mass which is similar to a prior mass that was removed. The patient has sarcoidosis and Rheumatoid Arthritis. The mass is being treated with Imuran. Patient was told that she had infection but was not treated with Abx. Lead Generation Representative Manolo Briggs, thoracic Surgeon is Jenna Stapleton. complaint: chest pain Onset (ago): day(s) Timing of current episode: constant Onset: during rest Severity: moderate Related Data Home Medications Medication Instructions Recorded Confirmed cholecalciferol (vitamin D3) 1,250 1,250 mcg PO QWEEK 12/25/19 09/19/20 mcg (50,000 unit) capsule cyanocobalamin (vitamin B-12) 1,000 mcg SUBLINGUAL DAILY 12/25/19 09/19/20 1,000 mcg sublingual tablet ergocalciferol (vitamin D2) 1,250 1,250 mcg PO QWEEK 12/25/19 09/19/20 mcg (50,000 unit) capsule trazodone 50 mg tablet [id number] mg PO BEDTIME PRN 12/25/19 09/19/20 tiotropium bromide 18 mcg capsule 1 cap INHALATION DAILY 01/15/20 09/19/20 with inhalation device prednisone 5 mg tablet 5 mg PO DAILY tab 01/19/20 09/19/20 sucralfate 1 gram tablet PO 02/05/20 09/19/20 mecobalamin (vitamin B12) 1,000 1,000 mcg SUBLINGUAL DAILY 09/19/20 09/19/20 mcg disintegrating tablet,sublingual Previous Rx's Medication Instructions Recorded albuterol sulfate 90 mcg/actuation 2 puff PO Q6H PRN #8.5 g 01/12/20 aerosol inhaler mycophenolate mofetil 500 mg 500 mg PO BID 30 Days #60 tab 02/05/20 tablet (CellCept) hydroxychloroquine 200 mg tablet 200 mg PO DAILY 90 Days #90 tab 02/21/20 (Plaquenil) prednisone 10 mg tablet 20 mg PO DAILY 30 Days #60 tab 03/07/20 polyethylene glycol 3350 17 17 g PO DAILY 30 Days #510 g 03/29/20 gram/dose oral powder (Miralax) sarilumab 200 mg/1.14 mL 200 mg (1.14 mL) SUBCUT Q2W #2.28 03/30/20 subcutaneous pen injector (Kevzara) ml docusate sodium 100 mg capsule 100 mg PO DAILY 30 Days #30 cap 04/01/20 (Colace) ibuprofen 100 mg/5 mL oral 200 mg (10 mL) PO Q6H PRN #250 ml 04/29/20 suspension eszopiclone 1 mg tablet (Lunesta) 1 mg PO BEDTIME 90 Days #90 tab 05/17/20 azithromycin 250 mg tablet 250 mg PO 3XW 28 Days #12 tab 07/14/20 oxycodone 5 mg capsule 5 mg PO Q8H PRN 10 Days #30 cap 07/14/20 budesonide-formoterol HFA 160 2 puff PO BID #30.6 g 07/25/20 mcg-4.5 mcg/actuation aerosol inhaler gabapentin 300 mg capsule 600 mg PO BEDTIME #60 cap 08/31/20 tramadol 50 mg tablet 50 mg PO Q8H PRN #20 tab 09/19/20 ondansetron HCl 4 mg tablet 4 mg PO Q8H PRN 14 Days #30 tab 09/21/20 (Zofran) tramadol 50 mg tablet 50 mg PO Q8H PRN #20 tab 09/21/20 ibuprofen 600 mg tablet 600 mg PO Q6H PRN #60 tab 09/23/20 omeprazole 40 mg capsule,delayed 40 mg PO DAILY #90 cap 10/18/20 release budesonide 0.5 mg/2 mL suspension 0.5 mg (2 mL) INHALATION BID 30 10/24/20 for nebulization Days #120 ml albuterol sulfate 2.5 mg (3 mL) INHALATION Q6H PRN 10/25/20 #225 ml azathioprine 50 mg tablet (Imuran) 100 mg PO DAILY 90 Days #180 tab 01/23/21 biotin 5 mg tablet 5 mg PO DAILY 180 Days #180 tab 01/23/21 cholecalciferol (vitamin D3) 125 125 mcg PO DAILY #30 cap 01/23/21 mcg (5,000 unit) capsule folic acid 1 mg tablet 2 mg PO DAILY #180 tab 01/23/21 amoxicillin 875 mg-potassium 1 tab PO BID #20 tab 02/01/21 clavulanate 125 mg tablet (Augmentin) Allergies Allergy/AdvReac Type Severity Reaction Status Date / Time levofloxacin Allergy Severe hives Verified 12/15/20 15:06 Review of Systems Constitutional: Constitutional: Reports no additional constitutional complaints Eyes: Eyes: Reports no additional eye complaints ENT: Denies dizziness Cardiovascular: Cardiovascular: Reports no additional cardiovascular complaints Respiratory: Respiratory: Reports as per HPI Gastrointestinal: Gastrointestinal: Reports no additional gastrointestinal complaints Genitourinary: Genitourinary: Reports no additional female genitourinary complaints Musculoskeletal: Musculoskeletal: Reports no additional musculoskeletal complaints Integumentary/Breasts: Skin/Breast: Denies rash Neurologic: Reports system reviewed and no additional complaints, except as documented, Denies dizziness and Denies Sensory deficit (Neuro) Psychiatric: Psychiatric: Denies anxiety PMFSH Past Medical History Medical History (Updated 02/01/21 @ 14:53 by Jong Breaux MD) Chest pain ILD (interstitial lung disease) Insomnia Lung mass Lymphadenopathy ÁNGELA (obstructive sleep apnea) Pneumonia Rheumatoid arthritis RUQ pain Sarcoidosis Sarcoidosis Seropositive rheumatoid arthritis Thyroid nodule Transaminitis Surgical History History of breast biopsy History of section History of cholecystectomy History of hysterectomy History of laparoscopic adjustable gastric banding History of lung surgery History of tubal ligation Hx of abdominoplasty Family History Family History Father Cardiovascular disease Mother Cardiovascular disease Hypertension Social History Social History (Updated 10/26/20 @ 13:59 by Colby Edwards) Housing: House Alcohol intake: never Patient Tobacco Use Status: Never used Tobacco Years Smoked: 15 years Advance Directives: Yes Advance Directives Information Provided: Yes Advance Directives on File: No Patient : No Current occupational status: unemployed Current occupation: rt handed Physical Exam Vital Signs: Vital Signs: Last Vital Signs Temp 97.9 F 02/01/21 13:46 Pulse 71 02/01/21 13:46 Resp 20 02/01/21 13:46 BP 121/61 02/01/21 13:46 Pulse Ox 99 02/01/21 13:46 BMI result Body Mass Index 33.6 Const: General: healthy appearing Nutritional Appearance: average body habitus Orientation/consciousness: oriented to person and patient oriented x3 Limitations: no limitations HENMT: Head: Yes normal to inspection Ears: external ears normal General nose exam: Normal external nose present Mouth: Normal oral and palatal mucosa present and oropharynx normal Throat: Yes posterior oropharynx normal Eyes: General: appearance normal, both eyes and all related structures Neck: Other: supple Neck: Yes normal visual inspection Chest: Chest palpation & inspection: normal inspection of the chest Resp: Auscultation: clear to auscultation bilaterally Cardio: Jugular venous distension: no JVD Rate: regular rate Rhythm: regular rhythm Heart sounds: S1 normal heart sound present and S2 normal heart sound present GI: Inspection: Yes normal to inspection Palpation (GI): Soft to palpation, nontender and No hepatosplenomegaly present Auscultation: normal bowel sounds : General: Yes no CVA tenderness Back/Spine/Pelvis: Back: no CVA tenderness Skin: General skin exam: no rashes or lesions noted Neuro: General: oriented to person and patient oriented x3 Cranial nerves: Yes CN's II-XII intact bilaterally Motor exam (neuro): 5/5 motor strength present throughout Sensory Exam: No Sensory deficit (Neuro) Extrem: General: Yes normal to inspection Psych: Appearance: grossly normal Course Reevaluation(s) Reevaluation #1: Discussed with Dr. Briggs who wants the patient started on augmentin and he will do bronchoscopy as outpatient. Patient is completely non toxic Time: 14:52 MDM - Chest Pain Lab Data Result diagrams: 02/01/21 14:13 02/01/21 14:13 Labs: Lab Results 02/01/21 02/01/21 Range/Units 14:13 14:13 WBC 6.7 (4.8-10.8) X10*3/uL RBC 4.43 (4.20-5.50) X10*6/uL Hgb 14.1 (12.0-16.0) g/dl Hct 41.4 (37.0-47.0) % MCV 93.5 (80.0-98.0) fL MCH 31.8 (27.0-33.0) pg MCHC 34.1 (31.0-35.0) g/dl RDW 12.2 (11.0-16.0) % Plt Count 244 (160-400) X10*3/uL MPV 10.4 (9.4-12.3) fL Absolute Nucleated RBC 0.000 (0.0-0.012) X10*3/uL Nucleated RBC % (auto) 0.0 (0.0-0.2) /100WBC Troponin I High Sens < 3.5 (<3.5-17.0) ng/L Discharge Plan Discharge Clinical Impression: Lung mass Pneumonia Qualifiers: Pneumonia type: due to unspecified organism Laterality: right Lung location: upper lobe of lung Qualified Code(s): J18.9 - Pneumonia, unspecified organism Patient Disposition: Home, Self-Care Instructions: Pneumonia (ED) Prescriptions: New amoxicillin-pot clavulanate [Augmentin] 875-125 mg tablet 1 tab PO BID Qty: 20 RF: 0 No Action albuterol sulfate 90 mcg/actuation HFA aerosol inhaler 2 puff PO Q6H PRN (Reason: shortness of breath or wheezing) Qty: 8.5 RF: 9 hydroxychloroquine [Plaquenil] 200 mg tablet 200 mg PO DAILY 90 Days Qty: 90 RF: 3 prednisone 10 mg tablet 20 mg PO DAILY 30 Days Qty: 60 RF: 6 Kevzara 200 mg/1.14 mL pen injector 200 mg subcut Q2W Qty: 2.28 RF: 3 docusate sodium [Colace] 100 mg capsule 100 mg PO DAILY 30 Days Qty: 30 RF: 2 eszopiclone [Lunesta] 1 mg tablet 1 mg PO BEDTIME 90 Days Qty: 90 RF: 0 budesonide-formoterol 160-4.5 mcg/actuation HFA aerosol inhaler 2 puff PO BID Qty: 30.6 RF: 3 gabapentin 300 mg capsule 600 mg PO BEDTIME Qty: 60 RF: 5 tramadol 50 mg tablet 50 mg PO Q8H PRN (Reason: pain) Qty: 20 RF: 0 ondansetron HCl [Zofran] 4 mg tablet 4 mg PO Q8H PRN (Reason: nausea and vomiting) 14 Days Qty: 30 RF: 2 omeprazole 40 mg capsule,delayed release(DR/EC) 40 mg PO DAILY Qty: 90 RF: 1 albuterol sulfate 2.5 mg /3 mL (0.083 %) solution for nebulization 2.5 mg inhalation Q6H PRN (Reason: shortness of breath or wheezing) Qty: 225 RF: 11 azathioprine [Imuran] 50 mg tablet 100 mg PO DAILY 90 Days Qty: 180 RF: 1 folic acid 1 mg tablet 2 mg PO DAILY Qty: 180 RF: 1 biotin 5 mg tablet 5 mg PO DAILY 180 Days Qty: 180 RF: 3 cholecalciferol (vitamin D3) 125 mcg (5,000 unit) capsule 125 mcg PO DAILY Qty: 30 RF: 6 ibuprofen 600 mg tablet 600 mg PO Q6H PRN (Reason: pain) Qty: 60 RF: 0 ibuprofen 100 mg/5 mL suspension 200 mg PO Q6H PRN (Reason: pain) Qty: 250 RF: 5 mecobalamin (vitamin B12) 1,000 mcg tablet,disintegrating 1,000 mcg sublingual DAILY RF: 0 tramadol 50 mg tablet 50 mg PO Q8H PRN (Reason: pain) Qty: 20 RF: 0 trazodone 50 mg tablet [id number] mg PO BEDTIME PRN (Reason: insomnia) RF: 0 cyanocobalamin (vitamin B-12) 1,000 mcg tablet, sublingual 1,000 mcg sublingual DAILY RF: 0 ergocalciferol (vitamin D2) 1,250 mcg (50,000 unit) capsule 1,250 mcg PO QWEEK RF: 0 cholecalciferol (vitamin D3) 1,250 mcg (50,000 unit) capsule 1,250 mcg PO QWEEK RF: 0 tiotropium bromide 18 mcg capsule, w/inhalation device 1 cap inhalation DAILY RF: 0 prednisone 5 mg tablet 5 mg PO DAILY RF: 0 azithromycin 250 mg tablet 250 mg PO 3XW 28 Days Qty: 12 RF: 6 oxycodone 5 mg capsule 5 mg PO Q8H PRN (Reason: pain) 10 Days Qty: 30 RF: 0 sucralfate 1 gram tablet PO RF: 0 mycophenolate mofetil [CellCept] 500 mg tablet 500 mg PO BID 30 Days Qty: 60 RF: 6 polyethylene glycol 3350 [Miralax] 17 gram/dose powder 17 g PO DAILY 30 Days Qty: 510 RF: 3 budesonide 0.5 mg/2 mL suspension for nebulization 0.5 mg inhalation BID 30 Days Qty: 120 RF: 11 Referrals: El Awan MD [Primary Care Provider] - 1 week Manolo Briggs MD [Physician] - 2 days
[2021-02-01 14:38] LABS: Troponin-I High Sensitivity < 3.5 ng/L (<3.5-17.0)
[2021-02-01 14:56] LABS: Anion Gap 13 (12-20); Blood Urea Nitrogen 12 mg/dL (9-16); Calcium 9.7 mg/dL (8.4-10.2); Carbon Dioxide 28 mmol/L (22-29); Chloride 105 mmol/L (96-108); Creatinine Clr Calc Pharmacy 91.8; Estimated Glomerular Filt Rate > 60; Glucose Random 92 mg/dL (60-115); Potassium 4.5 mmol/L (3.3-5.1); Sodium 141 mmol/L (135-145)
== END 2021-02-01 15:12 | disposition home or self-care (01) ==
PROVIDERS: Emergency Provider Emergency Medicine; PCP Internal Medicine
DX: J18.9 Pneumonia, unspecified organism (principal); R06.02 Shortness of breath; R07.9 Chest pain, unspecified; R91.8 Other nonspecific abnormal finding of lung field; Z79.899 Other long term (current) drug therapy
CPT/HCPCS: 36415; 80048; 84484; 85027; 93005; 99283

== ENCOUNTER 2021-02-03 10:51 | Outpatient (REF) | payer BC, SELFPAY ==
[2021-02-03 13:02] LABS: MANUAL DIFF FLAG NO
[2021-02-03 13:30] LABS: Basophils Percent Auto 0.4 % (0-2); Eosinophils Absolute Auto 0.1 X10*3/uL (0.0-0.4); Eosinophils Percent Auto 1.7 % (0-4); Hematocrit 39.1 % (37.0-47.0); Hemoglobin 13.4 g/dl (12.0-16.0); Imm Gran Abs Auto 0.01 X10*3/uL (0.00-0.03); Imm Gran Pct Auto 0.2 % (0.0-0.4); Lymphocytes Absolute Auto 1.6 X10*3/uL (1.2-4.9); Lymphocytes Percent Auto 30.7 % (20-40); Mean Corpuscular HGB Conc 34.3 g/dl (31.0-35.0); Mean Corpuscular Hemoglobin 32.1 pg (27.0-33.0); Mean Corpuscular Volume 93.8 fL (80.0-98.0); Mean Platelet Volume 10.5 fL (9.4-12.3); Monocytes Absolute Auto 0.4 X10*3/uL (0.1-1.2); Monocytes Percent Auto 6.5 % (2-11); Neutrophils Absolute Auto 3.2 x10*3/uL (2.0-8.3); Neutrophils Percent Auto 60.5 % (45-73); Platelet Count 224 X10*3/uL (160-400); Red Blood Count 4.17 X10*6/uL (4.20-5.50); Red Cell Distribution Width 12.2 % (11.0-16.0); White Blood Count 5.4 X10*3/uL (4.8-10.8)
[2021-02-03 14:01] LABS: Alanine Aminotransferase 22 U/L (0-31); Albumin Level 4.4 g/dL (3.5-5.0); Alkaline Phosphatase 94 U/L (39-117); Aspartate Amino Transferase 27 U/L (5-31); Bilirubin Direct 0.3 mg/dL (0.0-0.5); Bilirubin Total 0.8 mg/dL (0.0-1.0); Total Protein 7.4 g/dL (6.5-8.0)
[2021-02-03 14:13] LABS: Erythrocyte Sedimentation Rate 14 MM/HR (0-20)
[2021-02-06 13:42] LABS: Immunoglobulin A 140 mg/dL (47-310)
[2021-02-07 10:46] LABS: Endomysial IgA Antibody Negative (Negative)
[2021-02-08 15:11] LABS: Angiotensin Converting Enzyme 9 U/L (9-67)
[2021-02-09 16:17] LABS: Anti DNA DS Antibody 9 IU/mL
[2021-02-09 16:17] LABS: Transglutaminase Ab IgG <1.0 U/mL; Transglutaminase IgA <1.0 U/mL
[2021-02-10 13:36] LABS: Asperg fumigatus Precip Abs NEGATIVE (NEGATIVE); Micropoly faeni Abs NEGATIVE (NEGATIVE); Pigeon serum Abs NEGATIVE (NEGATIVE); Saccharo pora viridis Abs NEGATIVE (NEGATIVE); Thermo candidus Abs NEGATIVE (NEGATIVE); Thermoa vulgaris #1 NEGATIVE (NEGATIVE)
== END 2021-02-03 10:52 | disposition home or self-care (01) ==
LOC: HO.LAB 10:51
PROVIDERS: PCP Internal Medicine; Visit Provider Hospitalist
DX: R91.8 Other nonspecific abnormal finding of lung field (principal); J84.9 Interstitial pulmonary disease, unspecified; R05.9 Cough, unspecified; D86.9 Sarcoidosis, unspecified; M05.70 Rheumatoid arthritis with rheumatoid factor of unspecified site without organ or systems involvement; R07.82 Intercostal pain; L65.9 Nonscarring hair loss, unspecified; H54.7 Unspecified visual loss; Z98.84 Bariatric surgery status; Z90.49 Acquired absence of other specified parts of digestive tract; Z82.49 Family history of ischemic heart disease and other diseases of the circulatory system; Z88.1 Allergy status to other antibiotic agents
CPT/HCPCS: 36415; 80076; 82164; 82784; 83516; 85025; 85652; 86225; 86255; 86256; 86331; 86606; 86609

== ENCOUNTER 2021-03-26 21:12 | Emergency (ER) | payer BC, SELFPAY ==
--- NOTE | ~2021-03-26 | CT_ITS ---
EXAMINATION: CT ABDOMEN AND PELVIS WITH CONTRAST CLINICAL INFORMATION: Periumbilical/left upper quadrant pain. History of sarcoidosis. COMPARISON: Chest CT from 10/18/2020. TECHNIQUE: Multidetector volumetric images were obtained from the superior aspect of the liver through the pubic symphysis following administration 85 mL of Omnipaque 350 intravenous contrast. Sagittal and coronal reformatted images were obtained on the technologist's workstation. Oral contrast: No This CT examination was performed using dose optimization techniques as appropriate, variously including the following: *Automated exposure control *Adjustment of mA and/or kV according to patient size (this includes techniques or standardized protocols for targeted exams where dose is matched to indication/reason for exam; i.e. extremities or head) *Use of iterative reconstruction technique DLP: 636 mGy-cm FINDINGS: LUNG BASES: Partial visualization of the previously visualized right middle lobe consolidation/mass. This is not fully in the [id number]. The lung bases are otherwise clear. LIVER, GALLBLADDER, AND BILIARY TREE: The liver is normal in size, shape, and attenuation. No focal hepatic lesion or biliary ductal dilatation is present. Cholecystectomy. PANCREAS: Unremarkable. SPLEEN: Unremarkable. ADRENAL GLANDS: Unremarkable. KIDNEYS AND URETERS: The kidneys are normal in size, shape, and attenuation. No hydronephrosis, hydroureter, or calculi seen. No perinephric stranding. BLADDER: Unremarkable. GASTROINTESTINAL TRACT: Status post gastric sleeve. Normal caliber small bowel. No obstruction. No colonic wall thickening or inflammatory change. Normal appendix. ABDOMINAL WALL: No significant hernia is appreciated. LYMPH NODES: Normal. VASCULAR: Unremarkable. PELVIC VISCERA: The uterus is not seen. No adnexal mass. OSSEOUS STRUCTURES: No acute or suspicious osseous abnormality. Mild degenerative changes of the spine. Mild degenerative changes of the hips. CT/CT abdomen pelvis w con IMPRESSION: No acute finding in the abdomen or pelvis. No inflammatory changes. Normal appendix. Partially visualization of the previously seen right middle lobe opacity. Fleischner guidelines were followed.
[2021-03-26 21:35] VITALS: BP 123/77; PULSE 60; TEMP 36.6; O2SAT 100; BMI 34.7
[2021-03-26 21:51] LABS: MANUAL DIFF FLAG NO
[2021-03-26 21:52] LABS: Basophils Percent Auto 0.3 % (0-2); Eosinophils Absolute Auto 0.1 X10*3/uL (0.0-0.4); Hematocrit 38.6 % (37.0-47.0); Hemoglobin 13.8 g/dl (12.0-16.0); Imm Gran Abs Auto 0.01 X10*3/uL (0.00-0.03); Imm Gran Pct Auto 0.1 % (0.0-0.4); Lymphocytes Absolute Auto 2.1 X10*3/uL (1.2-4.9); Lymphocytes Percent Auto 31.1 % (20-40); Mean Corpuscular HGB Conc 35.8 g/dl (31.0-35.0); Mean Corpuscular Hemoglobin 33.1 pg (27.0-33.0); Mean Corpuscular Volume 92.6 fL (80.0-98.0); Mean Platelet Volume 10.3 fL (9.4-12.3); Monocytes Absolute Auto 0.5 X10*3/uL (0.1-1.2); Monocytes Percent Auto 7.8 % (2-11); Neutrophils Percent Auto 59.7 % (45-73); Platelet Count 236 X10*3/uL (160-400); Red Blood Count 4.17 X10*6/uL (4.20-5.50); Red Cell Distribution Width 11.9 % (11.0-16.0); White Blood Count 6.7 X10*3/uL (4.8-10.8)
[2021-03-26 22:12] LABS: Anion Gap 12 (12-20); Blood Urea Nitrogen 12 mg/dL (9-16); Calcium 9.6 mg/dL (8.4-10.2); Carbon Dioxide 27 mmol/L (22-29); Chloride 106 mmol/L (96-108); Creatinine Clr Calc Pharmacy 87.6; Estimated Glomerular Filt Rate > 60; Glucose Random 92 mg/dL (60-115); Lipase 22 U/L (8-78); Potassium 4.2 mmol/L (3.3-5.1); Sodium 141 mmol/L (135-145)
--- NOTE | 2021-03-26 22:28 | ED.ABDPAIN ---
HPI - Abdominal Pain General Chief Complaint: Abdominal Pain Stated Complaint: left side abd pain Time Seen by Provider: 03/26/21 22:13 Source: patient Mode of arrival: ambulatory History of Present Illness HPI narrative: 50-year-old female with significant past medical history of sarcoidosis with prior right middle lobe and partial right upper lobe resection as well as being currently treated for a mass and having been told that her spleen is enlarged. In addition, patient has a significant past surgical history of lap band conversion to gastric sleeve as well as prior hysterectomy. She presents today with acute onset periumbilical pain that radiates into the left flank is worse with standing and is constant crampy/burning in quality. Patient states that there is no alleviating maneuvers. Otherwise, she denies any fever, chills, nausea, vomiting, obstipation. COVID-19 vaccinated with siXis. Related Data Home Medications Medication Instructions Recorded Confirmed cyanocobalamin (vitamin B-12) 1,000 mcg SUBLINGUAL DAILY 12/25/19 09/19/20 1,000 mcg sublingual tablet sucralfate 1 gram tablet PO 02/05/20 09/19/20 mecobalamin (vitamin B12) 1,000 1,000 mcg SUBLINGUAL DAILY 09/19/20 09/19/20 mcg disintegrating tablet,sublingual Previous Rx's Medication Instructions Recorded albuterol sulfate 90 mcg/actuation 2 puff PO Q6H PRN #8.5 g 01/12/20 aerosol inhaler polyethylene glycol 3350 17 17 g PO DAILY 30 Days #510 g 03/29/20 gram/dose oral powder (Miralax) eszopiclone 1 mg tablet (Lunesta) 1 mg PO BEDTIME 90 Days #90 tab 05/17/20 budesonide-formoterol HFA 160 2 puff PO BID #30.6 g 07/25/20 mcg-4.5 mcg/actuation aerosol inhaler gabapentin 300 mg capsule 600 mg PO BEDTIME #60 cap 08/31/20 ondansetron HCl 4 mg tablet 4 mg PO Q8H PRN 14 Days #30 tab 09/21/20 (Zofran) ibuprofen 600 mg tablet 600 mg PO Q6H PRN #60 tab 09/23/20 budesonide 0.5 mg/2 mL suspension 0.5 mg (2 mL) INHALATION BID 30 10/24/20 for nebulization Days #120 ml albuterol sulfate 2.5 mg (3 mL) INHALATION Q6H PRN 10/25/20 #225 ml biotin 5 mg tablet 5 mg PO DAILY 180 Days #180 tab 01/23/21 cholecalciferol (vitamin D3) 125 125 mcg PO DAILY #30 cap 01/23/21 mcg (5,000 unit) capsule folic acid 1 mg tablet 2 mg PO DAILY #180 tab 01/23/21 amoxicillin 875 mg-potassium 1 tab PO BID #20 tab 02/01/21 clavulanate 125 mg tablet (Augmentin) mycophenolate mofetil 500 mg tablet 500 mg PO BID #60 tab 02/03/21 oxycodone 5 mg tablet 5 mg PO Q8H PRN 10 Days #30 tab 02/03/21 omeprazole 40 mg capsule,delayed 40 mg PO DAILY 90 Days #90 cap 02/06/21 release Allergies Allergy/AdvReac Type Severity Reaction Status Date / Time levofloxacin Allergy Severe hives Verified 03/26/21 21:40 Review of Systems Review of Systems Pertinent positives and negatives as stated in HPI 10 point review of systems is otherwise negative. Physical Exam Vital Signs: Vital Signs: Last Vital Signs Temp 97.6 F 03/26/21 23:54 Pulse 56 03/26/21 23:54 Resp 18 03/26/21 23:54 BP 111/47 L 03/26/21 23:54 Pulse Ox 99 03/26/21 23:54 BMI result Body Mass Index 34.7 VITAL SIGNS: Reviewed. GENERAL: Well developed, well nourished, in no acute distress. HEAD: Normocephalic/atraumatic EYES: PERRLA, EOMI OROPHARYNX: no oral lesions noted, posterior pharynx clear NECK: Supple, no adenopathy LUNGS: Normal breath sounds. No adventitious sounds or accessory muscle use. SpO2<100> CARDIOVASCULAR: Regular rate and rhythm without noted murmurs ABDOMEN: Soft, tenderness noted at left upper quadrant, exam somewhat limited due to body habitus unable to determine definitively presence of umbilical hernia, non-distended with bowel sounds. NEUROLOGIC: Alert and oriented x 4. Course Course Course Narrative: 50-year-old female with history and clinical presentation suggestive of possible SBO, hernia, and less likely renal colic. Review of all investigations negative for acute findings. Patient was informed of all results and discharged home in stable condition with instructions to use [id number] analgesics. MDM - Abdominal Pain Lab Data Result diagrams: 03/26/21 21:47 03/26/21 21:47 Labs: Lab Results 03/26/21 03/26/21 03/26/21 Range/Units 21:47 21:47 22:28 WBC 6.7 (4.8-10.8) X10*3/uL RBC 4.17 L (4.20-5.50) X10*6/uL Hgb 13.8 (12.0-16.0) g/dl Hct 38.6 (37.0-47.0) % MCV 92.6 (80.0-98.0) fL MCH 33.1 H (27.0-33.0) pg MCHC 35.8 H (31.0-35.0) g/dl RDW 11.9 (11.0-16.0) % Plt Count 236 (160-400) X10*3/uL MPV 10.3 (9.4-12.3) fL Immature Gran % (Auto) 0.1 (0.0-0.4) % Neut % (Auto) 59.7 (45-73) % Lymph % (Auto) 31.1 (20-40) % Haines % (Auto) 7.8 (2-11) % Eos % (Auto) 1.0 (0-4) % Baso % (Auto) 0.3 (0-2) % Lymph # (Auto) 2.1 (1.2-4.9) X10*3/uL Haines # (Auto) 0.5 (0.1-1.2) X10*3/uL Eos # (Auto) 0.1 (0.0-0.4) X10*3/uL Baso # (Auto) 0.0 (0.0-0.2) X10*3/uL Abs Immat Gran (auto) 0.01 (0.00-0.03) X10*3/uL Absolute Neuts (auto) 4.0 (2.0-8.3) x10*3/uL Absolute Nucleated RBC 0.000 (0.0-0.012) X10*3/uL Nucleated RBC % (auto) 0.0 (0.0-0.2) /100WBC Sodium 141 (135-145) mmol/L Potassium 4.2 (3.3-5.1) mmol/L Chloride 106 (96-108) mmol/L Carbon Dioxide 27 (22-29) mmol/L Anion Gap 12 (12-20) BUN 12 (9-16) mg/dL Creatinine 0.80 (0.5-1.4) mg/dL Estim Creat Clear Calc 87.6 Estimated GFR > 60 Random Glucose 92 (60-115) mg/dL Calcium 9.6 (8.4-10.2) mg/dL Total Bilirubin 0.9 (0.0-1.0) mg/dL Direct Bilirubin 0.3 (0.0-0.5) mg/dL AST 23 (5-31) U/L ALT 19 (0-31) U/L Alkaline Phosphatase 102 (39-117) U/L Total Protein 7.4 (6.5-8.0) g/dL Albumin 4.2 (3.5-5.0) g/dL Lipase 22 (8-78) U/L Beta HCG, Quant < 2 mIU/mL Urine Color YELLOW Urine Appearance HAZY Urine pH 5.5 (5.0-8.0) Ur Specific Taylor >= 1.030 H (1.005-1.025) Urine Protein TRACE (NEG-TRACE) MG/DL Urine Glucose (UA) NEG (NEG) MG/DL Urine Ketones NEG (NEG) MG/DL Urine Blood NEG (NEG) Urine Nitrite NEG (NEG) Ur Leukocyte Esterase NEG (NEG) Discharge Plan Discharge Clinical Impression: Abdominal pain Patient Disposition: Home, Self-Care Instructions: Abdominal Pain (ED) Additional Instructions: 1. Resume all home medications as prescribed. 2. Follow-up with your primary care provider in the morning to set up an appointment for re-evaluation and further outpatient management. Return to the ER for acute worsening of symptoms. Prescriptions: No Action albuterol sulfate 90 mcg/actuation HFA aerosol inhaler 2 puff PO Q6H PRN (Reason: shortness of breath or wheezing) Qty: 8.5 RF: 9 eszopiclone [Lunesta] 1 mg tablet 1 mg PO BEDTIME 90 Days Qty: 90 RF: 0 budesonide-formoterol 160-4.5 mcg/actuation HFA aerosol inhaler 2 puff PO BID Qty: 30.6 RF: 3 gabapentin 300 mg capsule 600 mg PO BEDTIME Qty: 60 RF: 5 ondansetron HCl [Zofran] 4 mg tablet 4 mg PO Q8H PRN (Reason: nausea and vomiting) 14 Days Qty: 30 RF: 2 albuterol sulfate 2.5 mg /3 mL (0.083 %) solution for nebulization 2.5 mg inhalation Q6H PRN (Reason: shortness of breath or wheezing) Qty: 225 RF: 11 folic acid 1 mg tablet 2 mg PO DAILY Qty: 180 RF: 1 biotin 5 mg tablet 5 mg PO DAILY 180 Days Qty: 180 RF: 3 cholecalciferol (vitamin D3) 125 mcg (5,000 unit) capsule 125 mcg PO DAILY Qty: 30 RF: 6 omeprazole 40 mg capsule,delayed release(DR/EC) 40 mg PO DAILY 90 Days Qty: 90 RF: 1 ibuprofen 600 mg tablet 600 mg PO Q6H PRN (Reason: pain) Qty: 60 RF: 0 amoxicillin-pot clavulanate [Augmentin] 875-125 mg tablet 1 tab PO BID Qty: 20 RF: 0 mecobalamin (vitamin B12) 1,000 mcg tablet,disintegrating 1,000 mcg sublingual DAILY RF: 0 cyanocobalamin (vitamin B-12) 1,000 mcg tablet, sublingual 1,000 mcg sublingual DAILY RF: 0 sucralfate 1 gram tablet PO RF: 0 polyethylene glycol 3350 [Miralax] 17 gram/dose powder 17 g PO DAILY 30 Days Qty: 510 RF: 3 budesonide 0.5 mg/2 mL suspension for nebulization 0.5 mg inhalation BID 30 Days Qty: 120 RF: 11 oxycodone 5 mg tablet 5 mg PO Q8H PRN (Reason: pain) 10 Days Qty: 30 RF: 0 mycophenolate mofetil 500 mg tablet 500 mg PO BID Qty: 60 RF: 4 Referrals: El Awan MD [Primary Care Provider] - 2 days [facility] Past Medical History Source: nursing notes reviewed Medical History Chest pain ILD (interstitial lung disease) Insomnia Lung mass Lymphadenopathy ÁNGELA (obstructive sleep apnea) Pneumonia Rheumatoid arthritis RUQ pain Sarcoidosis Sarcoidosis Seropositive rheumatoid arthritis Thyroid nodule Transaminitis Surgical History History of breast biopsy History of section History of cholecystectomy History of hysterectomy History of laparoscopic adjustable gastric banding History of lung surgery History of tubal ligation Hx of abdominoplasty Family History Family History Father Cardiovascular disease Mother Cardiovascular disease Hypertension Social History Social History Housing: House Alcohol intake: never Patient Tobacco Use Status: Never used Tobacco Years Smoked: 15 years Advance Directives: No Advance Directives Information Provided: No Patient : No Current occupational status: unemployed Current occupation: rt handed
[2021-03-26 22:34] LABS: Appearance Urine HAZY; Color Urine YELLOW; Glucose Urine UA NEG (NEG); Leukocyte Esterase Urine NEG (NEG); Nitrite Urine NEG (NEG); PH 5.5 (5.0-8.0); Specific Gravity - Urine >= 1.030 (1.005-1.025); Urine Blood NEG (NEG); Urine Ketones NEG (NEG); Urine Protein TRACE MG/DL (NEG-TRACE)
[2021-03-26 22:36] LABS: Alanine Aminotransferase 19 U/L (0-31); Albumin Level 4.2 g/dL (3.5-5.0); Alkaline Phosphatase 102 U/L (39-117); Aspartate Amino Transferase 23 U/L (5-31); Bilirubin Direct 0.3 mg/dL (0.0-0.5); Bilirubin Total 0.9 mg/dL (0.0-1.0); Total Protein 7.4 g/dL (6.5-8.0)
[2021-03-26 22:42] LABS: HCG Quantitative < 2 mIU/mL
[2021-03-26] MEDS: iohexoL 350 MG/ML 100 ML INFUS..BTL 85 ML IV (23:25)
[2021-03-26] MEDS: Ketorolac Tromethamine 30 MG/ML VIAL 15 MG IVPUSH (23:49)
[2021-03-26 23:54] VITALS: BP 111/47; PULSE 56; RESP 18; TEMP 36.4; O2SAT 99
== END 2021-03-27 00:35 | disposition home or self-care (01) ==
PROVIDERS: Emergency Provider Student in an Organized Health Care Education/Training Program; PCP Internal Medicine
DX: R10.9 Unspecified abdominal pain (principal); Z79.899 Other long term (current) drug therapy; Z98.84 Bariatric surgery status
CPT/HCPCS: 36415; 74177; 80048; 80076; 81003; 83690; 84702; 85025; 96360; 99284; J1885; Q9967

== ENCOUNTER 2021-07-03 19:11 | Emergency (ER) | payer BC, SELFPAY | END 2021-07-03 23:26 | disposition left against medical advice (07) | LOC: HO.ED 22:55 | PROVIDERS: Emergency Provider Emergency Medicine; PCP Internal Medicine | DX: R06.02 Shortness of breath (principal); R07.89 Other chest pain ==

== ENCOUNTER 2021-11-01 11:13 | Outpatient (REF) | payer BC, SELFPAY ==
[2021-11-01 11:27] LABS: MANUAL DIFF FLAG NO
[2021-11-01 12:09] LABS: Basophils Percent Auto 0.4 % (0-2); Eosinophils Absolute Auto 0.1 X10*3/uL (0.0-0.4); Eosinophils Percent Auto 1.5 % (0-4); Hematocrit 38.3 % (37.0-47.0); Hemoglobin 13.6 g/dl (12.0-16.0); Imm Gran Abs Auto 0.01 X10*3/uL (0.00-0.03); Imm Gran Pct Auto 0.2 % (0.0-0.4); Lymphocytes Absolute Auto 1.6 X10*3/uL (1.2-4.9); Mean Corpuscular HGB Conc 35.5 g/dl (31.0-35.0); Mean Corpuscular Hemoglobin 32.1 pg (27.0-33.0); Mean Corpuscular Volume 90.3 fL (80.0-98.0); Mean Platelet Volume 10.9 fL (9.4-12.3); Monocytes Absolute Auto 0.4 X10*3/uL (0.1-1.2); Monocytes Percent Auto 8.5 % (2-11); Neutrophils Percent Auto 58.4 % (45-73); Platelet Count 234 X10*3/uL (160-400); Red Blood Count 4.24 X10*6/uL (4.20-5.50); Red Cell Distribution Width 11.9 % (11.0-16.0); White Blood Count 5.2 X10*3/uL (4.8-10.8)
[2021-11-01 12:49] LABS: Anion Gap 15 (12-20); Blood Urea Nitrogen 12 mg/dL (9-16); Calcium 8.8 mg/dL (8.4-10.2); Carbon Dioxide 27 mmol/L (22-29); Chloride 106 mmol/L (96-108); Estimated Glomerular Filt Rate > 60; Glucose Random 86 mg/dL (60-115); Potassium 4.2 mmol/L (3.3-5.1); Sodium 144 mmol/L (135-145)
== END 2021-11-01 11:14 | disposition home or self-care (01) ==
LOC: HO.LAB 11:13
PROVIDERS: PCP Internal Medicine; Visit Provider Internal Medicine
DX: Z13.0 Encounter for screening for diseases of the blood and blood-forming organs and certain disorders involving the immune mechanism (principal); R51.9 Headache, unspecified
CPT/HCPCS: 36415; 80048; 85025

== ENCOUNTER 2021-12-07 16:15 | Outpatient (REF) | payer BC, SELFPAY ==
--- NOTE | ~2021-12-07 | CT_ITS ---
EXAMINATION: CT HEAD WITHOUT CONTRAST CLINICAL INFORMATION: Headache, unspecified. COMPARISON: None. TECHNIQUE: Contiguous axial imaging was performed from the skull base to vertex without intravenous administration of contrast. This CT examination was performed using dose optimization techniques as appropriate, variously including the following: *Automated exposure control *Adjustment of mA and/or kV according to patient size (this includes techniques or standardized protocols for targeted exams where dose is matched to indication/reason for exam; i.e. extremities or head) *Use of iterative reconstruction technique DLP: 651 mGy-cm. FINDINGS: There is no intracranial hemorrhage, large infarction, or mass lesion. There is no extra-axial collection. The ventricles are normal in size and configuration without evidence of hydrocephalus. The visualized paranasal sinuses and mastoid air cells are clear. CT/CT head/brain wo IV con IMPRESSION: No acute intracranial abnormality.
== END 2021-12-07 16:16 | disposition home or self-care (01) ==
LOC: HO.CT 16:15
PROVIDERS: Visit Provider Internal Medicine
DX: R51.9 Headache, unspecified (principal); R42 Dizziness and giddiness
CPT/HCPCS: 70450

== ENCOUNTER 2022-01-13 11:50 | Emergency (ER) | payer BC, SELFPAY ==
--- NOTE | ~2022-01-13 | CT_ITS ---
EXAMINATION: CT ANGIOGRAM OF THE CHEST WITH AND WITHOUT CONTRAST (CT PULMONARY ANGIOGRAM FOR PE) CLINICAL INFORMATION: Reason for Exam pleuritic cp. Elevated wbc COMPARISON: CT scan without contrast 10/18/2020, no CTA TECHNIQUE: Prior to contrast administration, noncontrast localization images were obtained. Subsequently, multidetector volumetric imaging was performed from the thoracic inlet to below the diaphragms following the administration of 85 mL Omnipaque 350 intravenous contrast. No contrast reaction reported Sagittal, coronal, and MIP oblique sagittal reformatted images were obtained on the CT workstation, uploaded to PACS, and reviewed. This CT examination was performed using dose optimization techniques as appropriate, variously including the following: *Automated exposure control *Adjustment of mA and/or kV according to patient size (this includes techniques or standardized protocols for targeted exams where dose is matched to indication/reason for exam; i.e. extremities or head) *Use of iterative reconstruction technique Total exam dose-length product 963 mGy-cm FINDINGS: QUALITY OF STUDY/CONTRAST BOLUS: Satisfactory. PULMONARY ARTERIES: No central or segmental pulmonary emboli. THORACIC AORTA: No aneurysm or dissection. LUNG: There is a right upper lobe mass inseparable from the fissure with mildly spiculated border, measured 3.3 x 2.9 x 2.0 cm with calcifications, seen on the previous study. The smaller size nodules seen through the right upper lobe defined groundglass opacities in the right lower lobe as well and is small nodules. Central airways are patent. PLEURA: No pleural effusion or pneumothorax. MEDIASTINUM: Normal heart size. No pericardial effusion. No hilar or mediastinal lymphadenopathy. No evidence of septal bowing or right heart strain. CHEST WALL/AXILLA: No axillary or internal mammary lymphadenopathy. OSSEOUS STRUCTURES: No acute or suspicious osseous abnormality. UPPER ABDOMEN: Unremarkable. No reflux of contrast into the hepatic veins to suggest elevated right heart pressures. CT/CT angio chest PE protocol IMPRESSION: 1. No evidence of pulmonary embolism. 2. Right upper lobe mass unchanged since previous study and multiple smaller nodules in the right upper lobe and right lower lobe VTE: negative
--- NOTE | ~2022-01-13 | XR_ITS ---
EXAMINATION: XR CHEST CLINICAL INFORMATION: Lung pain COMPARISON: CT scan of January 31, 2021 TECHNIQUE: PA view of the chest was obtained. FINDINGS: Region of parenchymal density is again seen with sutures within it within the mid right lung. No pneumothorax or pleural effusion is seen. No new focus of acute parenchymal disease. Heart normal size. No evidence of pulmonary edema. XR/XR chest 1V IMPRESSION: Postoperative change right lung which appears stable. No acute disease.
--- NOTE | ~2022-01-13 | CT_ITS ---
EXAMINATION: CT ABDOMEN AND PELVIS WITH CONTRAST CLINICAL INFORMATION: Pleuritic chest pain and elevated white blood cell COMPARISON: 03/26/2021 TECHNIQUE: Multidetector volumetric images were obtained from the superior aspect of the liver through the pubic symphysis following administration 85 mL of Omnipaque 350 intravenous contrast. Sagittal and coronal reformatted images were obtained on the technologist's workstation. Oral contrast: No This CT examination was performed using dose optimization techniques as appropriate, variously including the following: *Automated exposure control *Adjustment of mA and/or kV according to patient size (this includes techniques or standardized protocols for targeted exams where dose is matched to indication/reason for exam; i.e. extremities or head) *Use of iterative reconstruction technique DLP: 963 mGy-cm FINDINGS: LUNG BASES: Ill-defined groundglass opacity seen at the right lung base. See report of CTA of the chest LIVER, GALLBLADDER, AND BILIARY TREE: The liver is normal in size, shape, and attenuation. No focal hepatic lesion or biliary ductal dilatation is present. Gallbladder is surgically absent PANCREAS: Unremarkable. SPLEEN: Spleen is enlarged measured 13.6 cm ADRENAL GLANDS: Unremarkable. KIDNEYS AND URETERS: The kidneys are normal in size, shape, and attenuation. No hydronephrosis, hydroureter, or calculi seen. No perinephric stranding. BLADDER: Unremarkable. GASTROINTESTINAL TRACT: Patient is status post gastric bypass surgery. Number appendix present. There is no diverticulitis, diverticulosis, colitis. ABDOMINAL WALL: Small fat-containing umbilical hernia. LYMPH NODES: Normal. VASCULAR: Unremarkable. PELVIC VISCERA: Unremarkable. OSSEOUS STRUCTURES: Unremarkable. CT/CT abdomen pelvis w IV con IMPRESSION: 1. Splenomegaly. 2. 2. Status post cholecystectomy and gastric bypass surgery. 3. Ill-defined groundglass opacity seen at the right lung base. Fleischner guidelines were followed.
[2022-01-13 12:18] VITALS: BP 111/74; PULSE 100; RESP 16; TEMP 37.3; O2SAT 98; BMI 37.5
[2022-01-13 12:56] LABS: COVID-19 Test Negative (Negative); IDNOW Serial# 16C4AD1C; Influenza A Negative (Negative); Influenza B2 Negative (Negative)
--- NOTE | 2022-01-13 14:22 | ECG_ITS ---
Test Reason : SOB Blood Pressure : / mmHG Vent. Rate : 083 BPM Atrial Rate : 083 BPM P-R Int : 146 ms QRS Dur : 070 ms QT Int : 380 ms P-R-T Axes : 029 008 018 degrees QTc Int : 446 ms Normal sinus rhythm Minimal voltage criteria for LVH, may be normal variant ( R in aVL ) Borderline ECG When compared with ECG of 01-FEB-2021 13:52, No significant changes seen Referred By: Aundrea Andres Electronically Signed By:CASEY DICKENS MD
[2022-01-13 14:59] LABS: MANUAL DIFF FLAG NO
[2022-01-13 15:01] LABS: Basophils Percent Auto 0.2 % (0-2); Hematocrit 40.3 % (37.0-47.0); Imm Gran Abs Auto 0.09 X10*3/uL (0.00-0.03); Imm Gran Pct Auto 0.5 % (0.0-0.4); Lymphocytes Absolute Auto 0.9 X10*3/uL (1.2-4.9); Mean Corpuscular HGB Conc 34.7 g/dl (31.0-35.0); Mean Corpuscular Volume 89.4 fL (80.0-98.0); Mean Platelet Volume 10.2 fL (9.4-12.3); Monocytes Absolute Auto 0.8 X10*3/uL (0.1-1.2); Monocytes Percent Auto 4.6 % (2-11); Neutrophils Absolute Auto 15.9 x10*3/uL (2.0-8.3); Neutrophils Percent Auto 89.7 % (45-73); Platelet Count 220 X10*3/uL (160-400); Red Blood Count 4.51 X10*6/uL (4.20-5.50); Red Cell Distribution Width 11.9 % (11.0-16.0); White Blood Count 17.7 X10*3/uL (4.8-10.8)
[2022-01-13] MEDS: Ketorolac Tromethamine 15 MG/ML VIAL IVPUSH (15:02)
[2022-01-13 15:07] LABS: Prothrombin Time 11.9 SEC (10.0-13.1)
[2022-01-13 15:09] LABS: D Dimer High Sensitivity 200 NG/ML
[2022-01-13 15:26] LABS: Alanine Aminotransferase 19 U/L (0-31); Albumin Level 4.3 g/dL (3.5-5.0); Alkaline Phosphatase 104 U/L (39-117); Anion Gap 17 (12-20); Aspartate Amino Transferase 21 U/L (5-31); Bilirubin Direct 0.4 mg/dL (0.0-0.5); Bilirubin Total 1.3 mg/dL (0.0-1.0); Blood Urea Nitrogen 12 mg/dL (9-16); Calcium 9.4 mg/dL (8.4-10.2); Carbon Dioxide 22 mmol/L (22-29); Chloride 103 mmol/L (96-108); Creatinine Clr Calc Pharmacy 106.3; Estimated Glomerular Filt Rate > 60; Glucose Random 97 mg/dL (60-115); Magnesium 1.8 mg/dL (1.6-2.6); Potassium 4.1 mmol/L (3.3-5.1); Sodium 138 mmol/L (135-145); Total Protein 7.8 g/dL (6.5-8.0)
[2022-01-13 15:31] LABS: B Type Natriuretic Peptide < 10 pg/mL (<100); Troponin-I High Sensitivity < 3.5 ng/L (<3.5-17.0)
--- NOTE | 2022-01-13 15:52 | ED_ITS ---
HPI - General Adult General Chief complaint: General Medical Stated complaint: Bodyaches/Headache/Chills Time Seen by Provider: 01/13/22 13:47 Source: patient Mode of arrival: ambulatory History of Present Illness HPI narrative: 51-year-old female with a past medical history of interstitial lung disease, known lung mass, ÁNGELA, rheumatoid arthritis, sarcoidosis, no longer on immunomodulators, presenting to the ED complaining of generalized fatigue/body aches, headache, right-sided lower chest wall pain, right flank pain, and dysuria since this morning. Admits recently followed up with Pulmonary, Dr. Briggs who scheduled her for outpatient CT which patient has not yet received, Rx prednisone taper and pain medication which patient has not yet started. Reports chest pain worse with movement/breathing. Denies fever, abdominal pain, nausea, vomiting, diarrhea, recent travel, history of clots Onset (ago): hour(s) Related Data Home Medications Medication Instructions Recorded Confirmed mecobalamin (vitamin B12) 1,000 1,000 mcg sublingual DAILY 09/19/20 01/01/22 mcg disintegrating tablet,sublingual Previous Rx's Medication Instructions Recorded ondansetron HCl 4 mg tablet 4 mg PO Q8H PRN nausea and 09/21/20 (Zofran) vomiting 14 days #30 tabs albuterol sulfate 2.5 mg/3 mL 2.5 mg (3 mL) inhalation Q6H PRN 10/25/20 (0.083 %) solution for nebulization shortness of breath or wheezing #225 mL biotin 5 mg tablet 5 mg PO DAILY 180 days #180 tabs 01/23/21 omeprazole 40 mg capsule,delayed 40 mg PO DAILY 90 days #90 caps 02/06/21 release gabapentin 300 mg capsule 600 mg PO BEDTIME #60 caps 03/28/21 budesonide 0.5 mg/2 mL suspension 0.5 mg (2 mL) inhalation BID #360 10/16/21 for nebulization mL budesonide-formoterol HFA 160 2 puff PO BID #30.6 ea 10/18/21 mcg-4.5 mcg/actuation aerosol inhaler folic acid 1 mg tablet 2 mg PO DAILY #180 tabs 11/14/21 albuterol sulfate 90 mcg/actuation 2 puff PO Q6H PRN shortness of 01/01/22 aerosol inhaler breath or wheezing #8.5 grams cholecalciferol (vitamin D3) 125 125 mcg PO DAILY #30 caps 01/01/22 mcg (5,000 unit) capsule meclizine 25 mg tablet 25 mg PO TID-QID #30 tabs 01/01/22 eszopiclone 1 mg tablet (Lunesta) 1 mg PO BEDTIME 90 days #90 tabs 01/04/22 oxycodone 5 mg tablet 5 mg PO Q8H PRN pain 10 days #30 01/04/22 tabs prednisone 10 mg tablet See Rx Instructions PO DAILY 18 01/04/22 days #63 tabs Allergies Allergy/AdvReac Type Severity Reaction Status Date / Time levofloxacin Allergy Severe hives Verified 01/04/22 10:02 Review of Systems Review of Systems: Constitutional: No Fever, No Chills, + Fatigue, + Malaise ENT/Mouth: No Ear Pain, No Nasal Congestion, No sore throat, No Rhinorrhea, No Swallowing Difficulty Eyes: No Eye Pain, No Swelling, No Redness, No Vision Changes Cardiovascular: + Chest Pain, No SOB, No Dyspnea on Exertion, No Orthopnea, No Edema, No Palpitations Respiratory: No Cough, No Sputum, No Dyspnea Gastrointestinal: No Nausea, No Vomiting, No Diarrhea, No Constipation, No Abdominal pain Genitourinary: + Dysuria, No Urinary Frequency, No Hematuria, No Urinary Incontinence/retention, No Urgency, + Flank Pain, No Urinary Flow Changes, No Hesitancy Musculoskeletal: No joint pain, + Myalgias, No Joint Swelling Skin: No Skin Lesions, No rash Neuro: No Weakness, No Numbness, No Loss of Consciousness, No Dizziness, + Headache Yes all other systems are reviewed and are negative Constitutional: Constitutional: Reports as per [facility] Past Medical History Attestation statement: The following information was validated with the patient. Medical History Chest pain ILD (interstitial lung disease) Insomnia Lung mass Lymphadenopathy ÁNGELA (obstructive sleep apnea) Pneumonia Rheumatoid arthritis RUQ pain Sarcoidosis Sarcoidosis Seropositive rheumatoid arthritis Thyroid nodule Transaminitis Surgical History History of breast biopsy History of section History of cholecystectomy History of hysterectomy History of laparoscopic adjustable gastric banding History of lung surgery History of tubal ligation Hx of abdominoplasty Family History Family History Father Cardiovascular disease Mother Cardiovascular disease Hypertension Social History Social History Housing: House Alcohol intake: never Patient Tobacco Use Status: Former Tobacco user Tobacco use type: Cigarette Years Smoked: 15 years quit about 20 years ago e-Cigarette/Vaping Use: Never Used Second Hand Smoke Exposure: Yes Advance Directives: No Advance Directives Information Provided: No service: No Current occupational status: unemployed Current occupation: rt handed Cognitive needs: No Hearing needs: No Vision needs: Yes Physical Exam ED Vital Signs: Vital Signs - 24 hr 01/13/22 12:18 01/13/22 16:41 Temperature 99.1 F 98.3 F Pulse Rate 100 92 Respiratory Rate 16 19 Blood Pressure 111/74 116/67 Pulse Oximetry 98 98 Oxygen Delivery Method Room Air Room Air BMI result Body Mass Index 37.5 Const General: cooperative, healthy appearing, no acute distress, alert and awake Orientation/consciousness: patient oriented x3 Limitations: no limitations HENMT Head: Yes normal to inspection and Yes atraumatic Ears: hearing grossly normal bilaterally General nose exam: Normal external nose present Face and sinus: Yes normal facial exam Eyes General: appearance normal, both eyes and all related structures EOM: EOMs intact bilaterally Neck Neck: Yes normal visual inspection and Yes no meningeal signs Chest Other: + right lower posterior lateral rib ttp Chest palpation & inspection: normal inspection of the chest, no crepitus and tenderness Resp Effort & Inspection: normal respiratory effort and no respiratory distress Auscultation: clear to auscultation bilaterally, no crackles, no rales, no rhonchi and no wheezes Cardio Rate: regular rate Heart sounds: S1 normal heart sound present and S2 normal heart sound present GI Inspection: Yes normal to inspection Palpation (GI): Soft to palpation, nontender, no guarding and not rigid General: Yes CVA tenderness on the right Back/Spine/Pelvis Back: CVA tenderness Skin Rashes: no rashes Wounds: no wounds Neuro General: patient oriented x3, tone normal, moves all extremities, no meningeal signs and no focal motor deficits Gait exam (Neuro): Normal gait present Extrem General: Yes normal to inspection and Yes no pedal edema Course Course Course Narrative: -1529--leukocytosis of 17.7 with left shift > patient denies taking any doses of her prescribed steroid. Low suspicion for severe sepsis at this time -D-dimer WNL. Labs otherwise reassuring. Troponin negative XR chest 1V IMPRESSION: Postoperative change right lung which appears stable. No acute disease. -1818--lactic acid negative. CRP mildly elevated CT angio chest PE protocolIMPRESSION: 1.? No evidence of pulmonary embolism. 2.? Right upper lobe mass unchanged since previous study and multiple smaller nodules in the right upper lobe and right lower lobe VTE: negative CT abdomen pelvis w IV con IMPRESSION: 1.? Splenomegaly. 2.? 2. Status post cholecystectomy and gastric bypass surgery. 3.? Ill-defined groundglass opacity seen at the right lung base. ? Fleischner guidelines were followed. -UA and not infected > Results discussed with patient, recommended patient start taking previously prescribed prednisone from pulmonology and pain medication. No source of infection found. Blood culture sent. Discussed worrisome signs and symptoms and strict return precautions, and when to return to the emergency department. They verbalized understanding and feel safe for discharge at this time. Medications Administered Discontinued Medications Generic Name Dose Route Start Last Admin Trade Name Freq PRN Reason Stop Dose Admin Sodium Chloride 1,000 mls @ 999 mls/hr 01/13/22 16:15 01/13/22 16:59 Ns IV 01/13/22 17:15 999 mls/hr .Q1H1M STEVE Administration Ceftriaxone Sodium 1 gm/ 50 mls @ 100 mls/hr 01/13/22 16:10 01/13/22 16:59 Sodium Chloride IV 01/13/22 16:39 100 mls/hr ONCE ONE Administration Iohexol 100 ml 01/13/22 16:09 01/13/22 16:15 Iohexol 350 Mg/Ml 100 Ml Infus..Btl IV 01/13/22 16:10 85 ml ONCE ONE Administration Ketorolac Tromethamine 15 mg 01/13/22 14:22 01/13/22 15:02 Ketorolac Tromethamine 15 Mg/Ml Vial IVPUSH 01/13/22 14:23 15 mg ONCE ONE Administration Medical Decision Making [facility] Narrative Medical decision making narrative: 51-year-old female with a past medical history of interstitial lung disease, known lung mass, ÁNGELA, rheumatoid arthritis, sarcoidosis, no longer on immunomodulators, presenting to the ED complaining of generalized fatigue/body aches, headache, right-sided lower chest wall pain, right flank pain, and dysu klaudia since this morning. On exam low-grade temp at 99.1 degrees, mildly tachycardic to 100 likely from low-grade fever, lungs CTA with reproducible chest wall pain and right CVA tenderness, abdomen soft/nontender, no pedal edema. Concern for pneumonia vs PE vs RA flare vs viral syndrome vs UTI/pyelo or renal stone. Lower suspicion for appendicitis/diverticulitis or DVT/ACS Low suspicion for severe sepsis. Likely viral etiology Plan: EKG, labs, UA, CT chest and abdomen/pelvis, IV Toradol Medical Records Medical records reviewed: Yes I reviewed the patient's medical records. Lab Data Lab results reviewed: Yes I reviewed the patient's lab results. Result diagrams: 01/13/22 14:55 01/13/22 14:55 Labs: Lab Results 01/13/22 01/13/22 01/13/22 Range/Units 12:30 12:30 14:55 WBC 17.7 H (4.8-10.8) X10*3/uL RBC 4.51 (4.20-5.50) X10*6/uL Hgb 14.0 (12.0-16.0) g/dl Hct 40.3 (37.0-47.0) % MCV 89.4 (80.0-98.0) fL MCH 31.0 (27.0-33.0) pg MCHC 34.7 (31.0-35.0) g/dl RDW 11.9 (11.0-16.0) % Plt Count 220 (160-400) X10*3/uL MPV 10.2 (9.4-12.3) fL Immature Gran % (Auto) 0.5 H (0.0-0.4) % Neut % (Auto) 89.7 H (45-73) % Lymph % (Auto) 5.0 L (20-40) % [place] % (Auto) 4.6 (2-11) % Eos % (Auto) 0.0 (0-4) % Baso % (Auto) 0.2 (0-2) % Lymph # (Auto) 0.9 L (1.2-4.9) X10*3/uL [place] # (Auto) 0.8 (0.1-1.2) X10*3/uL Eos # (Auto) 0.0 (0.0-0.4) X10*3/uL Baso # (Auto) 0.0 (0.0-0.2) X10*3/uL Abs Immat Gran (auto) 0.09 H (0.00-0.03) X10*3/uL Absolute Neuts (auto) 15.9 H (2.0-8.3) x10*3/uL Absolute Nucleated RBC 0.000 (0.0-0.012) X10*3/uL Nucleated RBC % (auto) 0.0 (0.0-0.2) /100WBC ESR (0-20) MM/HR PT (10.0-13.1) SEC INR (0.9-1.1) D-Dimer High Sensitivty NG/ML Sodium (135-145) mmol/L Potassium (3.3-5.1) mmol/L Chloride (96-108) mmol/L Carbon Dioxide (22-29) mmol/L Anion Gap (12-20) BUN (9-16) mg/dL Creatinine (0.5-1.4) mg/dL Estim Creat Clear Calc Estimated GFR Random Glucose (60-115) mg/dL Lactic Acid (0.5-2.0) mmol/L Calcium (8.4-10.2) mg/dL Magnesium (1.6-2.6) mg/dL Total Bilirubin (0.0-1.0) mg/dL Direct Bilirubin (0.0-0.5) mg/dL AST (5-31) U/L ALT (0-31) U/L Alkaline Phosphatase (39-117) U/L Troponin I High Sens (<3.5-17.0) ng/L C-Reactive Protein (< or = 0.50) mg/dL B-Natriuretic Peptide (<100) pg/mL Total Protein (6.5-8.0) g/dL Albumin (3.5-5.0) g/dL Urine Color Urine Appearance Urine pH (5.0-9.0) Ur Specific [place] (1.005-1.025) Urine Protein (Neg-Trace) mg/dL Urine Glucose (UA) (Negative) mg/dL Urine Ketones (Negative) mg/dL Urine Blood (Negative) Urine Nitrite (Negative) Ur Leukocyte Esterase (Negative) COVID-19 (LAMONT) Negative (Negative) COVID-19 Clin Com See Note Influenza Type A (JEANETH) Negative (Negative) Influenza Type B (JEANETH) Negative (Negative) Influenza A & B Note See Note 01/13/22 01/13/22 01/13/22 Range/Units 14:55 14:55 14:55 WBC (4.8-10.8) X10*3/uL RBC (4.20-5.50) X10*6/uL Hgb (12.0-16.0) g/dl Hct (37.0-47.0) % MCV (80.0-98.0) fL MCH (27.0-33.0) pg MCHC (31.0-35.0) g/dl RDW (11.0-16.0) % Plt Count (160-400) X10*3/uL MPV (9.4-12.3) fL Immature Gran % (Auto) (0.0-0.4) % Neut % (Auto) (45-73) % Lymph % (Auto) (20-40) % [place] % (Auto) (2-11) % Eos % (Auto) (0-4) % Baso % (Auto) (0-2) % Lymph # (Auto) (1.2-4.9) X10*3/uL [place] # (Auto) (0.1-1.2) X10*3/uL Eos # (Auto) (0.0-0.4) X10*3/uL Baso # (Auto) (0.0-0.2) X10*3/uL Abs Immat Gran (auto) (0.00-0.03) X10*3/uL Absolute Neuts (auto) (2.0-8.3) x10*3/uL Absolute Nucleated RBC (0.0-0.012) X10*3/uL Nucleated RBC % (auto) (0.0-0.2) /100WBC ESR (0-20) MM/HR PT 11.9 (10.0-13.1) SEC INR 1.0 (0.9-1.1) D-Dimer High Sensitivty 200 NG/ML Sodium 138 (135-145) mmol/L Potassium 4.1 (3.3-5.1) mmol/L Chloride 103 (96-108) mmol/L Carbon Dioxide 22 (22-29) mmol/L Anion Gap 17 (12-20) BUN 12 (9-16) mg/dL Creatinine 0.68 (0.5-1.4) mg/dL Estim Creat Clear Calc 106.3 Estimated GFR > 60 Random Glucose 97 (60-115) mg/dL Lactic Acid (0.5-2.0) mmol/L Calcium 9.4 D (8.4-10.2) mg/dL Magnesium 1.8 (1.6-2.6) mg/dL Total Bilirubin 1.3 H (0.0-1.0) mg/dL Direct Bilirubin 0.4 (0.0-0.5) mg/dL AST 21 (5-31) U/L ALT 19 (0-31) U/L Alkaline Phosphatase 104 (39-117) U/L Troponin I High Sens < 3.5 (<3.5-17.0) ng/L C-Reactive Protein 1.43 H (< or = 0.50) mg/dL B-Natriuretic Peptide (<100) pg/mL Total Protein 7.8 (6.5-8.0) g/dL Albumin 4.3 (3.5-5.0) g/dL Urine Color Urine Appearance Urine pH (5.0-9.0) Ur Specific [place] (1.005-1.025) Urine Protein (Neg-Trace) mg/dL Urine Glucose (UA) (Negative) mg/dL Urine Ketones (Negative) mg/dL Urine Blood (Negative) Urine Nitrite (Negative) Ur Leukocyte Esterase (Negative) COVID-19 (LAMONT) (Negative) COVID-19 Clin Com Influenza Type A (JEANETH) (Negative) Influenza Type B (JEANETH) (Negative) Influenza A & B Note 01/13/22 01/13/22 01/13/22 Range/Units 14:55 14:55 16:24 WBC (4.8-10.8) X10*3/uL RBC (4.20-5.50) X10*6/uL Hgb (12.0-16.0) g/dl Hct (37.0-47.0) % MCV (80.0-98.0) fL MCH (27.0-33.0) pg MCHC (31.0-35.0) g/dl RDW (11.0-16.0) % Plt Count (160-400) X10*3/uL MPV (9.4-12.3) fL Immature Gran % (Auto) (0.0-0.4) % Neut % (Auto) (45-73) % Lymph % (Auto) (20-40) % [place] % (Auto) (2-11) % Eos % (Auto) (0-4) % Baso % (Auto) (0-2) % Lymph # (Auto) (1.2-4.9) X10*3/uL [place] # (Auto) (0.1-1.2) X10*3/uL Eos # (Auto) (0.0-0.4) X10*3/uL Baso # (Auto) (0.0-0.2) X10*3/uL Abs Immat Gran (auto) (0.00-0.03) X10*3/uL Absolute Neuts (auto) (2.0-8.3) x10*3/uL Absolute Nucleated RBC (0.0-0.012) X10*3/uL Nucleated RBC % (auto) (0.0-0.2) /100WBC ESR 14 (0-20) MM/HR PT (10.0-13.1) SEC INR (0.9-1.1) D-Dimer High Sensitivty NG/ML Sodium (135-145) mmol/L Potassium (3.3-5.1) mmol/L Chloride (96-108) mmol/L Carbon Dioxide (22-29) mmol/L Anion Gap (12-20) BUN (9-16) mg/dL Creatinine (0.5-1.4) mg/dL Estim Creat Clear Calc Estimated GFR Random Glucose (60-115) mg/dL Lactic Acid 1.7 (0.5-2.0) mmol/L Calcium (8.4-10.2) mg/dL Magnesium (1.6-2.6) mg/dL Total Bilirubin (0.0-1.0) mg/dL Direct Bilirubin (0.0-0.5) mg/dL AST (5-31) U/L ALT (0-31) U/L Alkaline Phosphatase (39-117) U/L Troponin I High Sens (<3.5-17.0) ng/L C-Reactive Protein (< or = 0.50) mg/dL B-Natriuretic Peptide < 10 (<100) pg/mL Total Protein (6.5-8.0) g/dL Albumin (3.5-5.0) g/dL Urine Color Urine Appearance Urine pH (5.0-9.0) Ur Specific [place] (1.005-1.025) Urine Protein (Neg-Trace) mg/dL Urine Glucose (UA) (Negative) mg/dL Urine Ketones (Negative) mg/dL Urine Blood (Negative) Urine Nitrite (Negative) Ur Leukocyte Esterase (Negative) COVID-19 ([facility]AMONT) (Negative) COVID-19 Clin Com Influenza Type A (JEANETH) (Negative) Influenza Type B (JEANETH) (Negative) Influenza A & B Note 01/13/22 Range/Units 17:02 WBC (4.8-10.8) X10*3/uL RBC (4.20-5.50) X10*6/uL Hgb (12.0-16.0) g/dl Hct (37.0-47.0) % MCV (80.0-98.0) fL MCH (27.0-33.0) pg MCHC (31.0-35.0) g/dl RDW (11.0-16.0) % Plt Count (160-400) X10*3/uL MPV (9.4-12.3) fL Immature Gran % (Auto) (0.0-0.4) % Neut % (Auto) (45-73) % Lymph % (Auto) (20-40) % [place] % (Auto) (2-11) % Eos % (Auto) (0-4) % Baso % (Auto) (0-2) % Lymph # (Auto) (1.2-4.9) X10*3/uL [place] # (Auto) (0.1-1.2) X10*3/uL Eos # (Auto) (0.0-0.4) X10*3/uL Baso # (Auto) (0.0-0.2) X10*3/uL Abs Immat Gran (auto) (0.00-0.03) X10*3/uL Absolute Neuts (auto) (2.0-8.3) x10*3/uL Absolute Nucleated RBC (0.0-0.012) X10*3/uL Nucleated RBC % (auto) (0.0-0.2) /100WBC ESR (0-20) MM/HR PT (10.0-13.1) SEC INR (0.9-1.1) D-Dimer High Sensitivty NG/ML Sodium (135-145) mmol/L Potassium (3.3-5.1) mmol/L Chloride (96-108) mmol/L Carbon Dioxide (22-29) mmol/L Anion Gap (12-20) BUN (9-16) mg/dL Creatinine (0.5-1.4) mg/dL Estim Creat Clear Calc Estimated GFR Random Glucose (60-115) mg/dL Lactic Acid (0.5-2.0) mmol/L Calcium (8.4-10.2) mg/dL Magnesium (1.6-2.6) mg/dL Total Bilirubin (0.0-1.0) mg/dL Direct Bilirubin (0.0-0.5) mg/dL AST (5-31) U/L ALT (0-31) U/L Alkaline Phosphatase (39-117) U/L Troponin I High Sens (<3.5-17.0) ng/L C-Reactive Protein (< or = 0.50) mg/dL B-Natriuretic Peptide (<100) pg/mL Total Protein (6.5-8.0) g/dL Albumin (3.5-5.0) g/dL Urine Color Yellow Urine Appearance Clear Urine pH 8.5 (5.0-9.0) Ur Specific [place] >= 1.030 H (1.005-1.025) Urine Protein Negative (Neg-Trace) mg/dL Urine Glucose (UA) Negative (Negative) mg/dL Urine Ketones Negative (Negative) mg/dL Urine Blood Negative (Negative) Urine Nitrite Negative (Negative) Ur Leukocyte Esterase Negative (Negative) COVID-19 ([facility]ONT) (Negative) COVID-19 Clin Com Influenza Type A (JEANETH) (Negative) Influenza Type B (JEANETH) (Negative) Influenza A & B Note ECG Data Attestation: I personally reviewed and interpreted this ECG as follows: Interpretation: EKG normal sinus rhythm. Rate of 83. [place] interval 146 . QTC 446. No STEMI Discharge Plan Discharge Clinical Impression: Acute viral syndrome Patient Disposition: Home, Self-Care Instructions: Viral Syndrome (ED) Additional Instructions: Your blood work showed an elevation in her white blood cell count. However we did not find infection. We did send blood cultures which we will follow The CT scan area chest does not show any change in her lung mass You have an enlarged spleen, otherwise your belly CT was unremarkable Please have close follow-up with her underwriter solicitation director If symptoms persist/worsen, you have fever, shortness of breath, continued or worsening pain, nausea or vomiting return to the emergency department I recommend you start taking previously prescribed medications from pulmonology Prescriptions: No Action ondansetron HCl [Zofran] 4 mg tablet 4 mg PO Q8H PRN (Reason: nausea and vomiting) 14 Days Qty: 30 2RF albuterol sulfate 2.5 mg /3 mL (0.083 %) solution for nebulization 2.5 mg inhalation Q6H PRN (Reason: shortness of breath or wheezing) Qty: 225 11RF biotin 5 mg tablet 5 mg PO DAILY 180 Days Qty: 180 3RF omeprazole 40 mg capsule,delayed release(DR/EC) 40 mg PO DAILY 90 Days Qty: 90 1RF gabapentin 300 mg capsule 600 mg PO BEDTIME Qty: 60 11RF budesonide 0.5 mg/2 mL suspension for nebulization 0.5 mg inhalation BID Qty: 360 3RF budesonide-formoterol 160-4.5 mcg/actuation HFA aerosol inhaler 2 puff PO BID Qty: 30.6 3RF folic acid 1 mg tablet 2 mg PO DAILY Qty: 180 1RF mecobalamin (vitamin B12) 1,000 mcg tablet,disintegrating 1,000 mcg sublingual DAILY cholecalciferol (vitamin D3) 125 mcg (5,000 unit) capsule 125 mcg PO DAILY Qty: 30 6RF meclizine 25 mg tablet 25 mg PO TID-QID Qty: 30 0RF albuterol sulfate 90 mcg/actuation HFA aerosol inhaler 2 puff PO Q6H PRN (Reason: shortness of breath or wheezing) Qty: 8.5 9RF prednisone 10 mg tablet See Rx Instructions PO DAILY 18 Days Qty: 63 0RF Rx Instructions: PO daily; Take 4 tabs x 3 days, then 3 tabs x 3 days, then 2 tabs daily x 3 days, then 1 tab x 3 days to complete. oxycodone 5 mg tablet 5 mg PO Q8H PRN (Reason: pain) 10 Days Qty: 30 0RF Rx Instructions: Partial Fill upon patient request. eszopiclone [Lunesta] 1 mg tablet 1 mg PO BEDTIME 90 Days Qty: 90 0RF Referrals: [facility] [Provider Group] - 1 week (call Saturday) El Awan MD [Primary Care Provider] - 5 days
[2022-01-13] MEDS: iohexoL 350 MG/ML 100 ML INFUS..BTL IV (16:15)
[2022-01-13 16:30] LABS: C Reactive Protein 1.43 mg/dL (< or = 0.50)
[2022-01-13 16:41] VITALS: BP 116/67; PULSE 92; RESP 19; TEMP 36.8; O2SAT 98
[2022-01-13 16:42] LABS: Erythrocyte Sedimentation Rate 14 MM/HR (0-20)
[2022-01-13 16:44] LABS: Lactic Acid 1.7 mmol/L (0.5-2.0)
[2022-01-13] MEDS: cefTRIAXone sodium 1 GM in 0.9 % Sodium Chloride 50 ML IV (16:59)
[2022-01-13] MEDS: 0.9 % Sodium Chloride 1,000 ML 999 ML IV (16:59)
[2022-01-13 17:35] LABS: Appearance Urine Clear; Color Urine Yellow; Glucose Urine UA Negative (Negative); Leukocyte Esterase Urine Negative (Negative); Nitrite Urine Negative (Negative); PH 8.5 (5.0-9.0); Specific Gravity - Urine >= 1.030 (1.005-1.025); Urine Blood Negative (Negative); Urine Ketones Negative (Negative); Urine Protein Negative (Neg-Trace)
[2022-01-13 18:35] VITALS: BP 98/47; PULSE 65; RESP 19; TEMP 36.8; O2SAT 98
== END 2022-01-13 18:40 | disposition home or self-care (01) ==
PROVIDERS: Physician Assistant; Emergency Provider Emergency Medicine; PCP Internal Medicine
DX: B34.9 Viral infection, unspecified (principal); R50.9 Fever, unspecified; R00.0 Tachycardia, unspecified; R51.9 Headache, unspecified; R10.9 Unspecified abdominal pain; R07.89 Other chest pain; Z20.822 Contact with and (suspected) exposure to COVID-19; Z87.891 Personal history of nicotine dependence; R91.8 Other nonspecific abnormal finding of lung field; Z98.84 Bariatric surgery status; Z90.49 Acquired absence of other specified parts of digestive tract; Z79.899 Other long term (current) drug therapy
CPT/HCPCS: 36415; 71045; 71275; 74177; 80048; 80076; 81003; 83605; 83735; 83880; 84484; 85025; 85379; 85610; 85652; 86140; 87040; 87502; 87635; 93005; 96374; 96375; 99284; J0696; J1885; Q9967

== ENCOUNTER 2022-01-19 13:06 | Outpatient (REF) | payer BC, SELFPAY ==
--- NOTE | ~2022-01-19 | CT_ITS ---
EXAMINATION: CT CHEST WITHOUT CONTRAST CLINICAL INFORMATION: Other nonspecific abnormal finding of lung field. Follow-up pulmonary nodules. COMPARISON: Previous chest CT scans most recent chest CTA January [address] from January 2021 TECHNIQUE: Multidetector volumetric CT imaging of the chest was done. Axial MIP volume rendering provided. Sagittal and coronal reformatted images were obtained. This CT examination was performed using dose optimization techniques as appropriate, variously including the following: *Automated exposure control *Adjustment of mA and/or kV according to patient size (this includes techniques or standardized protocols for targeted exams where dose is matched to indication/reason for exam; i.e. extremities or head) *Use of iterative reconstruction technique DLP: 159 mGy-cm FINDINGS: LUNGS: There are postsurgical changes to the right lung, question right middle lobe lobectomy, with surgical staple line. Partially calcified irregularly shaped masslike density in the right upper lobe appears unchanged. This measures approximately 1.9 x 2.8 cm in transverse and AP dimension. There are surrounding solid and groundglass attenuation right upper lung lobe nodules. The largest measures 9 mm axial image 161 series 7. This does not appear appreciably changed. There are scattered areas of groundglass attenuation right lower lobe, largest measuring 1 cm axial image 222 series 7. There is new or increased from 2020 exam. The left lung is clear. MEDIASTINUM: There is shotty mediastinal lymphadenopathy that is stable. Normal heart size. No pericardial effusion. No coronary artery calcified. Normal caliber thoracic aorta. CORONARY ARTERY CALCIFICATION: None visualized on this study. PLEURA: There is no pleural effusion. No pleural mass or thickening. AXILLA: No lymphadenopathy. UPPER ABDOMEN: Postsurgical changes to the stomach, probable of gastric sleeve. Postcholecystectomy. OSSEOUS STRUCTURES: Unremarkable. CT/CT chest wo IV con IMPRESSION: Postsurgical changes following right middle lobe lobectomy. Stable partially calcified irregular spiculated nodular density in the right upper lobe and surrounding adjacent solid and groundglass attenuation nodules. Stable shotty mediastinal lymphadenopathy. Fleischner guidelines were followed.
[2022-01-19 13:40] LABS: MANUAL DIFF FLAG NO
[2022-01-19 14:31] LABS: Basophils Percent Auto 0.1 % (0-2); Hemoglobin 12.9 g/dl (12.0-16.0); Imm Gran Abs Auto 0.05 X10*3/uL (0.00-0.03); Imm Gran Pct Auto 0.5 % (0.0-0.4); Lymphocytes Absolute Auto 2.5 X10*3/uL (1.2-4.9); Lymphocytes Percent Auto 22.7 % (20-40); Mean Corpuscular HGB Conc 34.9 g/dl (31.0-35.0); Mean Corpuscular Hemoglobin 31.5 pg (27.0-33.0); Mean Corpuscular Volume 90.5 fL (80.0-98.0); Mean Platelet Volume 10.6 fL (9.4-12.3); Monocytes Absolute Auto 0.7 X10*3/uL (0.1-1.2); Monocytes Percent Auto 6.6 % (2-11); Neutrophils Absolute Auto 7.7 x10*3/uL (2.0-8.3); Neutrophils Percent Auto 70.1 % (45-73); Platelet Count 296 X10*3/uL (160-400); Red Blood Count 4.09 X10*6/uL (4.20-5.50); Red Cell Distribution Width 12.2 % (11.0-16.0)
[2022-01-19 15:27] LABS: Alanine Aminotransferase 13 U/L (0-31); Albumin Level 4.4 g/dL (3.5-5.0); Alkaline Phosphatase 100 U/L (39-117); Anion Gap 16 (12-20); Aspartate Amino Transferase 17 U/L (5-31); Bilirubin Total 0.7 mg/dL (0.0-1.0); Blood Urea Nitrogen 15 mg/dL (9-16); Calcium 9.6 mg/dL (8.4-10.2); Carbon Dioxide 25 mmol/L (22-29); Chloride 104 mmol/L (96-108); Cholesterol 196 mg/dL; Estimated Glomerular Filt Rate > 60; Glucose Fasting 78 mg/dL (60-99); HDL Cholesterol 60 mg/dL; LDL Cholesterol Calculated 116 mg/dl; Potassium 3.9 mmol/L (3.3-5.1); Sodium 141 mmol/L (135-145); Thyroid Stimulating Hormone 2.42 uIU/mL (0.32-4.0); Total Protein 7.6 g/dL (6.5-8.0); Triglycerides 102 mg/dL
== END 2022-01-19 13:07 | disposition home or self-care (01) ==
LOC: HO.CT 13:06
PROVIDERS: Absent Provider Internal Medicine; PCP Internal Medicine; Visit Provider Hospitalist
DX: Z13.0 Encounter for screening for diseases of the blood and blood-forming organs and certain disorders involving the immune mechanism (principal); R91.8 Other nonspecific abnormal finding of lung field; E03.9 Hypothyroidism, unspecified; E78.5 Hyperlipidemia, unspecified; I10 Essential (primary) hypertension
CPT/HCPCS: 36415; 71250; 80053; 80061; 84443; 85025

== ENCOUNTER 2022-02-13 13:24 | Outpatient (REF) | payer BC, SELFPAY ==
--- NOTE | ~2022-02-13 | US_ITS ---
EXAMINATION: US THYROID CLINICAL INFORMATION: Single thyroid nodule COMPARISON: None TECHNIQUE: Linear transducer grayscale and color Doppler examination with attention to the region of the thyroid. FINDINGS: SIZE: Measurements of the thyroid lobes and nodules are given in sagittal, anteroposterior and transverse dimensions respectively. Right Thyroid Lobe: 5.9 x 2.0 x 1.8 cm, volume 11.1 mL. Parenchyma: The gland echotexture is heterogeneous. Thyroid vascularity is increased. Left Thyroid Lobe: 4.9 x 1.3 x 1.7 cm, volume 5.7 mL. Parenchyma: The gland echotexture is heterogeneous. Thyroid vascularity is increased. Isthmus: 0.2 cm in maximum AP dimension. Estimated total number of nodules greater than or equal to 1 cm: 2. Box Toe Buffer nodules are described as follows: 1. Location: Right upper. Size: 1.1 x 0.6 x 0.9 cm, volume 0.3 mL. Nodule characteristics: Composition: Solid (2). Echogenicity: Hypoechoic (2). Shape: Not taller than wide (0). Margins: Smooth (0). Echogenic Foci: None (0). ACR TI-RADS total points: 4 ACR TI-RADS category: 4 2. Location: Right midpole. Size: 1.0 x 1.0 x 0.5 cm, volume 0.3 mL. Nodule characteristics: Composition: Solid (2). Echogenicity: Isoechoic (1). Shape: Not taller than wide (0). Margins: Ill-defined (0). Echogenic Foci: None (0). ACR TI-RADS total points: 3 ACR TI-RADS category: 3 3. Location: Right midpole. Size: 0.7 x 0.5 x 0.6 cm, volume 0.1 mL. Nodule characteristics: Composition: Solid (2). Echogenicity: Isoechoic (1). Shape: Not taller than wide (0). Margins: Smooth (0). Echogenic Foci: None (0). ACR TI-RADS total points: 3 ACR TI-RADS category: 3 4. Location: Left midpole. Size: 1.1 x 0.6 x 0.7 cm, volume 0.2 mL. Nodule characteristics: Composition: Solid (2). Echogenicity: Isoechoic (1). Shape: Not taller than wide (0). Margins: Smooth (0). Echogenic Foci: None (0). ACR TI-RADS total points: 3 ACR TI-RADS category: 3 NODES: A 1.1 x 0.6 x 0.7 cm right cervical node which maintains normal hilar architecture and is not pathologically enlarged. US/US thyroid IMPRESSION: Heterogeneous hypervascular thyroid which can be seen in the setting of thyroiditis. A 1.1 cm TR 4 thyroid nodule which warrants 1, 2, 3, and 5 year follow-up ultrasound to assess stability. Remainder of TR 3 thyroid nodules measuring up to 1.1 cm do not meet criteria for follow-up. ACR TI-RADS RECOMMENDATION REFERENCE: Ultrasound-guided fine-needle aspiration, followup ultrasound, no further follow up. * TR1 (0 point) and TR 2 (2 points): No FNA or follow up. * TR3 (3 points): FNA if more than or equal to 2.5 cm in maximum dimension, followup ultrasound in 1, 3 and 5 years if 1.5 to 2.4 cm in maximum dimension. * TR4 (4-6 points): FNA if more than or equal to 1.5 cm in maximum dimension, followup ultrasound in 1, 2, 3 and 5 years if 1 to 1.4 cm in maximum dimension. * TR5 (more than or equal to 7 points): FNA if more than or equal to 1 cm in maximum dimension, followup ultrasound every year for 5 years if 0.5 to 0.9 cm in maximum dimension. * TR3, TR4 or TR5 nodules that are below the size threshold for followup receive no follow up.
[2022-02-13 14:13] LABS: MANUAL DIFF FLAG NO
[2022-02-13 14:54] LABS: Basophils Percent Auto 0.2 % (0-2); Eosinophils Absolute Auto 0.1 X10*3/uL (0.0-0.4); Eosinophils Percent Auto 1.5 % (0-4); Hemoglobin 13.6 g/dl (12.0-16.0); Imm Gran Abs Auto 0.02 X10*3/uL (0.00-0.03); Imm Gran Pct Auto 0.3 % (0.0-0.4); Lymphocytes Percent Auto 33.7 % (20-40); Mean Corpuscular Hemoglobin 30.8 pg (27.0-33.0); Mean Corpuscular Volume 90.7 fL (80.0-98.0); Mean Platelet Volume 10.4 fL (9.4-12.3); Monocytes Absolute Auto 0.5 X10*3/uL (0.1-1.2); Monocytes Percent Auto 7.8 % (2-11); Neutrophils Absolute Auto 3.3 x10*3/uL (2.0-8.3); Neutrophils Percent Auto 56.5 % (45-73); Platelet Count 298 X10*3/uL (160-400); Red Blood Count 4.41 X10*6/uL (4.20-5.50); Red Cell Distribution Width 12.2 % (11.0-16.0); White Blood Count 5.9 X10*3/uL (4.8-10.8)
[2022-02-13 15:34] LABS: Erythrocyte Sedimentation Rate 20 MM/HR (0-20)
[2022-02-13 16:11] LABS: Monotest Negative (Negative)
[2022-02-13 16:21] LABS: Anion Gap 13 (12-20); Blood Urea Nitrogen 8 mg/dL (9-16); Calcium 9.3 mg/dL (8.4-10.2); Carbon Dioxide 27 mmol/L (22-29); Chloride 107 mmol/L (96-108); Estimated Glomerular Filt Rate > 60; Glucose Random 79 mg/dL (60-115); Potassium 4.5 mmol/L (3.3-5.1); Sodium 142 mmol/L (135-145)
[2022-02-15 14:32] LABS: Anti DNA DS Antibody 5 IU/mL
[2022-02-16 12:49] LABS: Anti Nuclear Antibody Screen NEGATIVE (NEGATIVE)
== END 2022-02-13 13:25 | disposition home or self-care (01) ==
LOC: HO.US 13:24
PROVIDERS: Absent Provider Hospitalist; PCP Internal Medicine; Visit Provider Internal Medicine
DX: E04.1 Nontoxic single thyroid nodule (principal); R91.8 Other nonspecific abnormal finding of lung field
CPT/HCPCS: 36415; 76536; 80048; 85025; 85652; 86038; 86039; 86225; 86308

== ENCOUNTER → 2022-02-19 13:29 | Outpatient (BNVA) | payer BC, SELFPAY | PROVIDERS: PCP Internal Medicine; Visit Provider Hospitalist | DX: Z23 Encounter for immunization (principal); R07.82 Intercostal pain; U09.9 Post COVID-19 condition, unspecified; R91.8 Other nonspecific abnormal finding of lung field; J84.9 Interstitial pulmonary disease, unspecified; D86.9 Sarcoidosis, unspecified; M05.9 Rheumatoid arthritis with rheumatoid factor, unspecified | CPT/HCPCS: 90471; 90472; 90677; 90686 ==

== ENCOUNTER → 2022-02-22 12:30 | Outpatient (BNVA) | payer BC, SELFPAY | PROVIDERS: PCP Internal Medicine; Visit Provider Internal Medicine | DX: E04.2 Nontoxic multinodular goiter (principal) ==

== ENCOUNTER 2022-03-12 12:44 | Outpatient (REF) | payer BC, SELFPAY ==
--- NOTE | ~2022-03-12 | CT_ITS ---
EXAMINATION: CT SOFT TISSUE NECK WITHOUT CONTRAST CLINICAL INFORMATION: Nontoxic multinodular goiter. COMPARISON: Ultrasound of the thyroid 02/13/2022. CT scan of the chest 01/19/2022. TECHNIQUE: Helical imaging was performed in the axial plane with generation of coronal and sagittal reformatted images. Evaluation is slightly limited due to lack of intravenous contrast. This CT examination was performed using dose optimization techniques as appropriate, variously including the following: *Automated exposure control *Adjustment of mA and/or kV according to patient size (this includes techniques or standardized protocols for targeted exams where dose is matched to indication/reason for exam; i.e. extremities or head) *Use of iterative reconstruction technique DLP: 451 mGy-cm FINDINGS: The thyroid gland is slightly prominent with heterogenous attenuation. No large discrete nodules are demonstrated on this noncontrast CT scan. There is no cervical lymphadenopathy; there are mildly prominent lymph nodes at multiple levels in the neck bilaterally. The parotid glands are homogeneous in attenuation. The submandibular glands are normal. No contour abnormality is seen within the oral cavity or pharyngeal mucosal space. The laryngeal structures are normal. The parapharyngeal fat is preserved. There is no atheromatous calcification. No extra mucosal soft tissue mass or fluid collection is seen. No retropharyngeal fluid collection is seen. The superior mediastinum is unremarkable. There is opacification in the right upper lobe which is irregular and is incompletely visualized. There are multiple small nodular opacities around this area. The mastoid air cells are well-aerated. There is a retention cyst in the left maxillary sinus. There are moderate spondylitic changes in the mid and lower cervical spine. The temporomandibular joints are normal. No periapical disease is identified. The imaged portions of the brain parenchyma are unremarkable. CT/CT soft tissue neck wo IV con IMPRESSION: 1. The thyroid gland is enlarged with heterogenous attenuation. Without intravenous contrast, discrete nodules cannot be assessed. 2. There is an area of opacification in the right upper lobe which is irregular and is incompletely visualized, with multiple small nodular opacities around this. Recommend follow-up CT scan of the chest for further evaluation. 3. There is no cervical lymphadenopathy and no masses are demonstrated in the neck. 4. The [facility] staff will call to confirm receipt of this report with acknowledgement of the findings and any recommendations.
== END 2022-03-12 12:45 | disposition home or self-care (01) ==
LOC: HO.CT 12:44
PROVIDERS: PCP Internal Medicine; Visit Provider Internal Medicine
DX: E04.2 Nontoxic multinodular goiter (principal)
CPT/HCPCS: 70490

== ENCOUNTER 2022-04-30 13:14 | Outpatient (REF) | payer BC, SELFPAY ==
--- NOTE | ~2022-04-30 | XR_ITS ---
EXAMINATION: XR CHEST CLINICAL INFORMATION: Other overlap syndrome COMPARISON: CT chest from 01/19/2022 TECHNIQUE: 2 views of the chest were obtained. FINDINGS: Redemonstration of masslike density in the right mid lung field better characterized on recent CT chest imaging. Bilateral low lung volumes. No pneumothorax. Trachea is midline. Cardiac mediastinal silhouette is not enlarged. No large pleural effusion. Degenerative changes of the thoracolumbar spine. Soft tissues are unremarkable. XR/XR chest 2V IMPRESSION: 1. Redemonstration of masslike density in the right mid lung field better characterized on recent CT chest imaging. 2. Bilateral low lung volumes.
== END 2022-04-30 13:15 | disposition home or self-care (01) ==
LOC: HO.XRAY 13:14
PROVIDERS: PCP Nurse Practitioner Family; Visit Provider Hospitalist
DX: R07.81 Pleurodynia (principal); R91.8 Other nonspecific abnormal finding of lung field; J84.9 Interstitial pulmonary disease, unspecified; U09.9 Post COVID-19 condition, unspecified; D86.9 Sarcoidosis, unspecified; R07.82 Intercostal pain; M05.9 Rheumatoid arthritis with rheumatoid factor, unspecified; M35.1 Other overlap syndromes
CPT/HCPCS: 71046

== ENCOUNTER 2022-05-04 10:22 | Outpatient (REF) | payer BC, SELFPAY ==
[2022-05-04 12:22] LABS: MANUAL DIFF FLAG NO
[2022-05-04 13:39] LABS: Basophils Percent Auto 0.6 % (0-2); Eosinophils Absolute Auto 0.1 X10*3/uL (0.0-0.4); Eosinophils Percent Auto 1.3 % (0-4); Hematocrit 38.2 % (37.0-47.0); Imm Gran Abs Auto 0.02 X10*3/uL (0.00-0.03); Imm Gran Pct Auto 0.4 % (0.0-0.4); Lymphocytes Absolute Auto 1.6 X10*3/uL (1.2-4.9); Lymphocytes Percent Auto 30.8 % (20-40); Mean Corpuscular Hemoglobin 30.9 pg (27.0-33.0); Mean Corpuscular Volume 90.7 fL (80.0-98.0); Mean Platelet Volume 10.7 fL (9.4-12.3); Monocytes Absolute Auto 0.4 X10*3/uL (0.1-1.2); Monocytes Percent Auto 6.7 % (2-11); Neutrophils Absolute Auto 3.1 x10*3/uL (2.0-8.3); Neutrophils Percent Auto 60.2 % (45-73); Platelet Count 233 X10*3/uL (160-400); Red Blood Count 4.21 X10*6/uL (4.20-5.50); White Blood Count 5.2 X10*3/uL (4.8-10.8)
[2022-05-04 14:17] LABS: Estimated Average Glucose 88 mg/dL; Hemoglobin A1c % 4.7 %
[2022-05-04 14:18] LABS: Troponin-I High Sensitivity < 3.5 ng/L (<3.5-17.0)
[2022-05-04 14:26] LABS: Alanine Aminotransferase 19 U/L (0-31); Albumin Level 4.2 g/dL (3.5-5.0); Alkaline Phosphatase 110 U/L (39-117); Anion Gap 13 (12-20); Aspartate Amino Transferase 22 U/L (5-31); Bilirubin Total 1.2 mg/dL (0.0-1.0); Blood Urea Nitrogen 11 mg/dL (9-16); C Reactive Protein 0.11 mg/dL (< or = 0.50); Calcium 9.1 mg/dL (8.4-10.2); Carbon Dioxide 27 mmol/L (22-29); Chloride 104 mmol/L (96-108); Erythrocyte Sedimentation Rate 19 MM/HR (0-20); Estimated Glomerular Filt Rate > 60; Glucose Random 78 mg/dL (60-115); Potassium 4.2 mmol/L (3.3-5.1); Sodium 140 mmol/L (135-145); Total Protein 7.1 g/dL (6.5-8.0)
[2022-05-04 14:42] LABS: Rheumatoid Factor 346.6 IU/mL (<15.0)
[2022-05-07 08:55] LABS: HBS Num1 0.04 mIU/mL (0-7.99); HBc Num1 0.11 S/CO (0.00-0.79); Hepatitis A Antibody IgM 0.15 Index (0-0.79); Hepatitis B Core Antibody Nonreactive (Nonreactive); Hepatitis B Surface Antigen Negative (Negative); ~HepC Num1 0.26 S/CO (0.00-0.79); ~Hepatitis A Antibody IgM Nonreactive (Nonreactive); ~Hepatitis B Surface Antibody NONREACTIVE (Nonreactive); ~Hepatitis C Antibody Nonreactive (Nonreactive)
[2022-05-07 11:58] LABS: Cyclic Citrullinated Peptide >250 UNITS
[2022-05-07 16:08] LABS: IgA 146 mg/dL (47-310); IgG 1432 mg/dL (600-1640); IgM 146 mg/dL (50-300)
[2022-05-07 16:29] LABS: TS Negative Control Passed; TS Panel A 0; TS Panel B 1; TS Positive Control Passed; TSpotTB Negative (Negative)
[2022-05-07 22:58] LABS: Prot Elec - Albumin 4.2 g/dL (3.8-4.8); Prot Elec - Alpha1 0.3 g/dL (0.2-0.3); Prot Elec - Alpha2 0.7 g/dL (0.5-0.9); Prot Elec - Beta 1 0.6 g/dL (0.4-0.6); Prot Elec - Beta 2 0.3 g/dL (0.2-0.5); Prot Elec - Gamma 1.3 g/dL (0.8-1.7); Prot Elec - Total Protein 7.3 g/dL (6.1-8.1)
[2022-05-09 06:38] LABS: Aldolase 4.7 U/L (<=8.1)
[2022-05-10 05:13] LABS: Beta-2 Glycoprotein IgG <2.0 U/mL (<20.0); Beta-2 Glycoprotein IgM 4.3 U/mL (<20.0)
[2022-05-10 06:05] LABS: PTT (LAC) Screen 35 sec (<=40)
[2022-05-11 12:47] LABS: Centromere Protein A Ab <11 SI (<11); Centromere Protein B Ab <11 SI (<11); Fibrillarin Ab <11 SI (<11); PM SCL 100 Ab <11 SI (<11); PM SCL 75 Ab <11 SI (<11); RNA Polymerase III RP11 Ab <11 SI (<11); RNA Polymerase III RP155 Ab <11 SI (<11); SCL-70 Extractable Nuclear Ab <11 SI (<11); Th-To Ab <11 SI (<11); U1 SNRNP RNP 70KD <11 SI (<11); U1 SNRNP RNP A <11 SI (<11); U1 SNRNP RNP C <11 SI (<11)
[2022-05-12 14:14] LABS: Vitamin D 25-OH, D2 10 ng/mL; Vitamin D 25-OH, D3 13 ng/mL; Vitamin D 25-OH, Total 23 ng/mL (30-100)
[2022-05-13 16:13] LABS: Cytosolic 5'nuc 1A Ab IgG <5 Units; Ej Ab <11 SI (<11); HMGCR Ab IgG <2 CU (<20); Jo-1 Ab <11 SI (<11); MDA5 Ab <11 SI (<11); Mi-2 alpha Ab <11 SI (<11); Mi-2 beta Ab <11 SI (<11); NXP-2 (MJ) Ab <11 SI (<11); Oj Ab <11 SI (<11); Pl-12 Ab <11 SI (<11); Pl-7 Ab <11 SI (<11); SRP Ab <11 SI (<11); TIF1 gamma Ab <11 SI (<11)
[2022-05-18 15:14] LABS: Cardiolipin IgG Ab <2.0 GPL-U/mL (<20.0); Cardiolipin IgM Ab 4.5 MPL-U/mL (<20.0)
== END 2022-05-04 10:23 | disposition home or self-care (01) ==
LOC: HO.LAB 10:22
PROVIDERS: PCP Nurse Practitioner Family; Visit Provider Student in an Organized Health Care Education/Training Program
DX: M05.9 Rheumatoid arthritis with rheumatoid factor, unspecified (principal); M34.9 Systemic sclerosis, unspecified; D68.61 Antiphospholipid syndrome; R07.9 Chest pain, unspecified; M79.7 Fibromyalgia; Z79.899 Other long term (current) drug therapy; Z79.52 Long term (current) use of systemic steroids; Z13.1 Encounter for screening for diabetes mellitus; Z11.59 Encounter for screening for other viral diseases; Z11.7 Encounter for testing for latent tuberculosis infection; Z13.21 Encounter for screening for nutritional disorder; Z72.89 Other problems related to lifestyle
CPT/HCPCS: 36415; 80053; 82085; 82306; 82550; 82784; 83036; 83516; 83520; 84165; 84182; 84484; 85025; 85597; 85613; 85652; 85730; 86140; 86146; 86147; 86200; 86235; 86334; 86431; 86481; 86704; 86706; 86709; 86803; 87340

== ENCOUNTER 2022-05-10 10:41 | Outpatient (REF) | payer BC, SELFPAY ==
--- NOTE | ~2022-05-10 | XR_ITS ---
EXAMINATION: BILATERAL HAND AND WRIST EXAM CLINICAL INFORMATION: Rheumatoid arthritis with rheumatoid factor COMPARISON: None TECHNIQUE: 3 views each hand and wrist exam. FINDINGS: Left hand/wrist exam: There is loss of PIP and DIP joint spaces without bony erosive changes or periarticular spurring. The MCP joint space is preserved. No visible acute fracture, dislocation or subluxation seen. Right hand/wrist exam: There is loss of PIP and DIP joint space. No periarticular spurring seen. No bony erosive changes. The soft tissues are normal. XR/XR hand wrist LT IMPRESSION: Mild degenerative changes PIP and DIP joints both hands. No visible acute fracture, dislocation or subluxation seen.
--- NOTE | ~2022-05-10 | XR_ITS ---
EXAMINATION: XR FOOT, RIGHT XR FOOT, LEFT XR ANKLE, RIGHT XR ANKLE, LEFT CLINICAL INFORMATION: Rheumatoid arthritis with rheumatoid factor. COMPARISON: None available. TECHNIQUE: 3 views each foot and 2 views each ankle. FINDINGS: RIGHT ANKLE: There is a calcaneal heel spur. The ankle mortise and subtalar joints are normal. No fracture or dislocation seen. No abnormal soft tissue swelling. RIGHT FOOT: No visible acute fracture or dislocation seen. The MCP, IP joints are maintained normal. No fracture, dislocation or bony erosive changes seen. The soft tissues are normal. LEFT ANKLE: The ankle mortise and subtalar joints are normal. No visible acute fracture, dislocation or subluxation seen. No bony erosive changes seen. The soft tissues are normal. LEFT FOOT: There is no visible acute fracture or dislocation. The MCP, IP joints are maintained normal. XR/XR foot RT min 3V IMPRESSION: 1. Right calcaneal heel spur. No visible acute fracture or dislocation right ankle. 2. Unremarkable bilateral foot exam. 3. Unremarkable bilateral ankle exam.
--- NOTE | ~2022-05-10 | XR_ITS ---
EXAMINATION: XR HIP, BILATERAL XR KNEE AP STANDING, BILATERAL XR KNEE, LEFT CLINICAL INFORMATION: Rheumatoid arthritis with rheumatoid factor. COMPARISON: None available. TECHNIQUE: 2 views each hip. 3 views each knee. AP bilateral knee standing. FINDINGS: LEFT HIP: The hip joint space is maintained normal. No bony erosive changes, loose bodies or fracture seen. The soft tissues are normal. RIGHT HIP: The right hip joint space is normal. No bony erosive changes. No acute fracture, dislocation or subluxation seen. The soft tissues are normal. RIGHT KNEE: There is mild reduction in the patellofemoral compartment joint space with superior patellar spurring. No visible acute fracture, dislocation or subluxation seen. No abnormal joint effusion seen. There is small anterior suprapatellar enthesophyte. The soft tissues are normal. LEFT KNEE: There is mild reduction in the patellofemoral compartment joint space with anterior suprapatellar enthesophyte. No loose body or joint effusion seen. No bony erosive changes. The soft tissues are normal RIGHT KNEE: There is mild reduction in patellofemoral compartment joint space without any bony erosive changes or joint effusion. There is mild suprapatellar enthesophytes. The soft tissues are normal. BILATERAL AP KNEE STANDING: There is mild reduction in bilateral medial and lateral compartment loss of joint space. No bony erosive changes or periarticular spurring. No abnormal joint effusion. XR/XR knee RT 3V IMPRESSION: 1. Unremarkable bilateral hip exam. 2. Mild early degenerative changes in the tricompartments of both knees. No visible acute fracture, dislocation or joint effusion seen. 3. There is anterior superior patellar enthesophyte left knee. No loose body or joint effusion seen in either knee.
--- NOTE | ~2022-05-10 | XR_ITS ---
EXAMINATION: XR FOOT, RIGHT XR FOOT, LEFT XR ANKLE, RIGHT XR ANKLE, LEFT CLINICAL INFORMATION: Rheumatoid arthritis with rheumatoid factor. COMPARISON: None available. TECHNIQUE: 3 views each foot and 2 views each ankle. FINDINGS: RIGHT ANKLE: There is a calcaneal heel spur. The ankle mortise and subtalar joints are normal. No fracture or dislocation seen. No abnormal soft tissue swelling. RIGHT FOOT: No visible acute fracture or dislocation seen. The MCP, IP joints are maintained normal. No fracture, dislocation or bony erosive changes seen. The soft tissues are normal. LEFT ANKLE: The ankle mortise and subtalar joints are normal. No visible acute fracture, dislocation or subluxation seen. No bony erosive changes seen. The soft tissues are normal. LEFT FOOT: There is no visible acute fracture or dislocation. The MCP, IP joints are maintained normal. XR/XR ankle LT min 3V IMPRESSION: 1. Right calcaneal heel spur. No visible acute fracture or dislocation right ankle. 2. Unremarkable bilateral foot exam. 3. Unremarkable bilateral ankle exam.
--- NOTE | ~2022-05-10 | XR_ITS ---
EXAMINATION: XR FOOT, RIGHT XR FOOT, LEFT XR ANKLE, RIGHT XR ANKLE, LEFT CLINICAL INFORMATION: Rheumatoid arthritis with rheumatoid factor. COMPARISON: None available. TECHNIQUE: 3 views each foot and 2 views each ankle. FINDINGS: RIGHT ANKLE: There is a calcaneal heel spur. The ankle mortise and subtalar joints are normal. No fracture or dislocation seen. No abnormal soft tissue swelling. RIGHT FOOT: No visible acute fracture or dislocation seen. The MCP, IP joints are maintained normal. No fracture, dislocation or bony erosive changes seen. The soft tissues are normal. LEFT ANKLE: The ankle mortise and subtalar joints are normal. No visible acute fracture, dislocation or subluxation seen. No bony erosive changes seen. The soft tissues are normal. LEFT FOOT: There is no visible acute fracture or dislocation. The MCP, IP joints are maintained normal. XR/XR ankle RT min 3V IMPRESSION: 1. Right calcaneal heel spur. No visible acute fracture or dislocation right ankle. 2. Unremarkable bilateral foot exam. 3. Unremarkable bilateral ankle exam.
--- NOTE | ~2022-05-10 | XR_ITS ---
EXAMINATION: BILATERAL HAND AND WRIST EXAM CLINICAL INFORMATION: Rheumatoid arthritis with rheumatoid factor COMPARISON: None TECHNIQUE: 3 views each hand and wrist exam. FINDINGS: Left hand/wrist exam: There is loss of PIP and DIP joint spaces without bony erosive changes or periarticular spurring. The MCP joint space is preserved. No visible acute fracture, dislocation or subluxation seen. Right hand/wrist exam: There is loss of PIP and DIP joint space. No periarticular spurring seen. No bony erosive changes. The soft tissues are normal. XR/XR hand wrist RT IMPRESSION: Mild degenerative changes PIP and DIP joints both hands. No visible acute fracture, dislocation or subluxation seen.
--- NOTE | ~2022-05-10 | XR_ITS ---
EXAMINATION: XR HIP, BILATERAL XR KNEE AP STANDING, BILATERAL XR KNEE, LEFT CLINICAL INFORMATION: Rheumatoid arthritis with rheumatoid factor. COMPARISON: None available. TECHNIQUE: 2 views each hip. 3 views each knee. AP bilateral knee standing. FINDINGS: LEFT HIP: The hip joint space is maintained normal. No bony erosive changes, loose bodies or fracture seen. The soft tissues are normal. RIGHT HIP: The right hip joint space is normal. No bony erosive changes. No acute fracture, dislocation or subluxation seen. The soft tissues are normal. RIGHT KNEE: There is mild reduction in the patellofemoral compartment joint space with superior patellar spurring. No visible acute fracture, dislocation or subluxation seen. No abnormal joint effusion seen. There is small anterior suprapatellar enthesophyte. The soft tissues are normal. LEFT KNEE: There is mild reduction in the patellofemoral compartment joint space with anterior suprapatellar enthesophyte. No loose body or joint effusion seen. No bony erosive changes. The soft tissues are normal RIGHT KNEE: There is mild reduction in patellofemoral compartment joint space without any bony erosive changes or joint effusion. There is mild suprapatellar enthesophytes. The soft tissues are normal. BILATERAL AP KNEE STANDING: There is mild reduction in bilateral medial and lateral compartment loss of joint space. No bony erosive changes or periarticular spurring. No abnormal joint effusion. XR/XR hip LT min 2V IMPRESSION: 1. Unremarkable bilateral hip exam. 2. Mild early degenerative changes in the tricompartments of both knees. No visible acute fracture, dislocation or joint effusion seen. 3. There is anterior superior patellar enthesophyte left knee. No loose body or joint effusion seen in either knee.
--- NOTE | ~2022-05-10 | XR_ITS ---
EXAMINATION: XR HIP, BILATERAL XR KNEE AP STANDING, BILATERAL XR KNEE, LEFT CLINICAL INFORMATION: Rheumatoid arthritis with rheumatoid factor. COMPARISON: None available. TECHNIQUE: 2 views each hip. 3 views each knee. AP bilateral knee standing. FINDINGS: LEFT HIP: The hip joint space is maintained normal. No bony erosive changes, loose bodies or fracture seen. The soft tissues are normal. RIGHT HIP: The right hip joint space is normal. No bony erosive changes. No acute fracture, dislocation or subluxation seen. The soft tissues are normal. RIGHT KNEE: There is mild reduction in the patellofemoral compartment joint space with superior patellar spurring. No visible acute fracture, dislocation or subluxation seen. No abnormal joint effusion seen. There is small anterior suprapatellar enthesophyte. The soft tissues are normal. LEFT KNEE: There is mild reduction in the patellofemoral compartment joint space with anterior suprapatellar enthesophyte. No loose body or joint effusion seen. No bony erosive changes. The soft tissues are normal RIGHT KNEE: There is mild reduction in patellofemoral compartment joint space without any bony erosive changes or joint effusion. There is mild suprapatellar enthesophytes. The soft tissues are normal. BILATERAL AP KNEE STANDING: There is mild reduction in bilateral medial and lateral compartment loss of joint space. No bony erosive changes or periarticular spurring. No abnormal joint effusion. XR/XR knee LT 3V IMPRESSION: 1. Unremarkable bilateral hip exam. 2. Mild early degenerative changes in the tricompartments of both knees. No visible acute fracture, dislocation or joint effusion seen. 3. There is anterior superior patellar enthesophyte left knee. No loose body or joint effusion seen in either knee.
--- NOTE | ~2022-05-10 | XR_ITS ---
EXAMINATION: XR HIP, BILATERAL XR KNEE AP STANDING, BILATERAL XR KNEE, LEFT CLINICAL INFORMATION: Rheumatoid arthritis with rheumatoid factor. COMPARISON: None available. TECHNIQUE: 2 views each hip. 3 views each knee. AP bilateral knee standing. FINDINGS: LEFT HIP: The hip joint space is maintained normal. No bony erosive changes, loose bodies or fracture seen. The soft tissues are normal. RIGHT HIP: The right hip joint space is normal. No bony erosive changes. No acute fracture, dislocation or subluxation seen. The soft tissues are normal. RIGHT KNEE: There is mild reduction in the patellofemoral compartment joint space with superior patellar spurring. No visible acute fracture, dislocation or subluxation seen. No abnormal joint effusion seen. There is small anterior suprapatellar enthesophyte. The soft tissues are normal. LEFT KNEE: There is mild reduction in the patellofemoral compartment joint space with anterior suprapatellar enthesophyte. No loose body or joint effusion seen. No bony erosive changes. The soft tissues are normal RIGHT KNEE: There is mild reduction in patellofemoral compartment joint space without any bony erosive changes or joint effusion. There is mild suprapatellar enthesophytes. The soft tissues are normal. BILATERAL AP KNEE STANDING: There is mild reduction in bilateral medial and lateral compartment loss of joint space. No bony erosive changes or periarticular spurring. No abnormal joint effusion. XR/XR knee standing BI IMPRESSION: 1. Unremarkable bilateral hip exam. 2. Mild early degenerative changes in the tricompartments of both knees. No visible acute fracture, dislocation or joint effusion seen. 3. There is anterior superior patellar enthesophyte left knee. No loose body or joint effusion seen in either knee.
--- NOTE | ~2022-05-10 | XR_ITS ---
EXAMINATION: XR HIP, BILATERAL XR KNEE AP STANDING, BILATERAL XR KNEE, LEFT CLINICAL INFORMATION: Rheumatoid arthritis with rheumatoid factor. COMPARISON: None available. TECHNIQUE: 2 views each hip. 3 views each knee. AP bilateral knee standing. FINDINGS: LEFT HIP: The hip joint space is maintained normal. No bony erosive changes, loose bodies or fracture seen. The soft tissues are normal. RIGHT HIP: The right hip joint space is normal. No bony erosive changes. No acute fracture, dislocation or subluxation seen. The soft tissues are normal. RIGHT KNEE: There is mild reduction in the patellofemoral compartment joint space with superior patellar spurring. No visible acute fracture, dislocation or subluxation seen. No abnormal joint effusion seen. There is small anterior suprapatellar enthesophyte. The soft tissues are normal. LEFT KNEE: There is mild reduction in the patellofemoral compartment joint space with anterior suprapatellar enthesophyte. No loose body or joint effusion seen. No bony erosive changes. The soft tissues are normal RIGHT KNEE: There is mild reduction in patellofemoral compartment joint space without any bony erosive changes or joint effusion. There is mild suprapatellar enthesophytes. The soft tissues are normal. BILATERAL AP KNEE STANDING: There is mild reduction in bilateral medial and lateral compartment loss of joint space. No bony erosive changes or periarticular spurring. No abnormal joint effusion. XR/XR hip RT min 2V IMPRESSION: 1. Unremarkable bilateral hip exam. 2. Mild early degenerative changes in the tricompartments of both knees. No visible acute fracture, dislocation or joint effusion seen. 3. There is anterior superior patellar enthesophyte left knee. No loose body or joint effusion seen in either knee.
--- NOTE | ~2022-05-10 | XR_ITS ---
EXAMINATION: XR FOOT, RIGHT XR FOOT, LEFT XR ANKLE, RIGHT XR ANKLE, LEFT CLINICAL INFORMATION: Rheumatoid arthritis with rheumatoid factor. COMPARISON: None available. TECHNIQUE: 3 views each foot and 2 views each ankle. FINDINGS: RIGHT ANKLE: There is a calcaneal heel spur. The ankle mortise and subtalar joints are normal. No fracture or dislocation seen. No abnormal soft tissue swelling. RIGHT FOOT: No visible acute fracture or dislocation seen. The MCP, IP joints are maintained normal. No fracture, dislocation or bony erosive changes seen. The soft tissues are normal. LEFT ANKLE: The ankle mortise and subtalar joints are normal. No visible acute fracture, dislocation or subluxation seen. No bony erosive changes seen. The soft tissues are normal. LEFT FOOT: There is no visible acute fracture or dislocation. The MCP, IP joints are maintained normal. XR/XR foot LT min 3V IMPRESSION: 1. Right calcaneal heel spur. No visible acute fracture or dislocation right ankle. 2. Unremarkable bilateral foot exam. 3. Unremarkable bilateral ankle exam.
--- NOTE | 2022-05-10 11:17 | PM.OP ---
Brief Operative Note Date of Service: 05/10/22 Pre-op diagnosis: Multinodular Thyroid Procedure: This is doctor Tasha Elliott. This is an ultrasound-guided fine-needle aspiration report. Indication: Multinodular Thyroid Porcedure: Procedure was explained to the patient. Alternatives, the risk and benefits were discussed. Written consent was obtained. A time-out was also obtained. After sterile preparation, 1 ml of 1% lidocaine solution was applied subcutaneously for anesthetic effect. Then Fine-needle aspiration of a right mid pole 1.0 cm thyroid nodule was performed using direct ultrasound guidance to confirm accurate needle placement. Three aspirations were made using 27 gauge needles. Samples were submitted for cytology. One pass was dedicated for [employer] sequencing baling machine tender testing. Our attention was then turned to the right upper pole. Fine-needle aspiration of a right upper pole 1.1 cm thyroid nodule was performed using direct ultrasound guidance to confirm accurate needle placement. Three aspirations were made using 27 gauge needles. Samples were submitted for cytology. One pass was dedicated for [employer] sequencing baling machine tender testing. The patient tolerated the procedure well. Aftercare instructions were provided. Impression: Uncomplicated fine needle aspiration biopsy of a right mid pole 1.0 cm thyroid nodule and a right upper pole 1.1 cm thyroid nodule under ultrasound guidance. Surgeon: Tasha Elloitt, DO Was an Train Operations Supervisor used for this Procedure?: No Estimated blood loss (mL): 0
[2022-05-10] MEDS: Lidocaine HCl 1 % MPF 5 ML VIAL SUBCUT (11:41)
== END 2022-05-10 10:42 | disposition home or self-care (01) ==
LOC: HO.US 10:41
PROVIDERS: PCP Nurse Practitioner Family; Visit Provider Internal Medicine
DX: E04.2 Nontoxic multinodular goiter (principal); M05.9 Rheumatoid arthritis with rheumatoid factor, unspecified
CPT/HCPCS: 10005; 73110; 73130; 73502; 73562; 73565; 73610; 73630; 88172; 88173; 88177; 88305

== ENCOUNTER 2022-05-16 12:57 | Outpatient (REF) | payer BC, SELFPAY ==
--- NOTE | ~2022-05-16 | MM_ITS ---
EXAMINATION: BONE DENSITOMETRY CLINICAL INDICATION: Long-term (current) use of systemic steroids. COMPARISON: None (current study represents initial baseline exam). TECHNIQUE: Using a [employer] DXA System (software version: 13.1) manufactured by [employer], dual-energy x-ray absorptiometry was performed of the lumbar spine and left hip. The images are of good technical quality. Summary results are attached. FINDINGS: AP SPINE L1-L4: BMD 0.999 g/cm2, Z-score -2.1, T-score -1.5, osteopenia. LEFT FEMUR, NECK: BMD 0.796 g/cm2, Z-score -1.6, T-score -1.7, osteopenia. LEFT FEMUR, TOTAL: BMD 0.782 g/cm2, Z-score -2.0, T-score -1.8, osteopenia. IDENTIFIED RISK FACTORS: History of adult fracture. Rheumatoid arthritis. Secondary osteoporosis (early menopause). Hysterectomy. Left oophorectomy. Chronic glucocorticoids. HISTORY OF FRACTURE: Ankle. MEDICATIONS: Vitamin D. MM/XR DEXA axial skeleton IMPRESSION: 1. DIAGNOSIS: Osteopenia based on the lowest T-score value of -1.8 in the femoral neck applying World Health Organization criteria. 2. 10-YEAR FRACTURE RISK PREDICTION, FRAX: Major osteoporotic fracture (clinical spine, forearm, hip or shoulder) 9.6%. Hip fracture 1.4%. 3. Treatment Recommendations: NOF guidelines recommend consideration for treatment in postmenopausal women and men age 50 and older presenting with the following: -A hip or vertebral (clinical or morphometric) fracture. -T-score less than or equal to -2.5 at the femoral neck or spine after appropriate evaluation to exclude secondary causes. -Low bone mass at the hip or spine and a 10-year fracture probability by FRAX of greater than or equal to 3% for hip fracture or greater than or equal to 20% for major osteoporotic fracture based on the [place] adapted WHO algorithm. 4. Other Recommendations: All treatment decisions require clinical judgment and consideration of individual patient factors, including patient preferences, comorbidities, previous drug use, risk factors not captured in the FRAX model (e.g. frailty, falls, vitamin D deficiency, increased bone turnover, interval significant decline in bone density) and possible under or overestimation of fracture risk by FRAX. Additional medical evaluation for secondary cause of low bone mineral density may be appropriate. FUTURE SCAN RECOMMENDATION: People with diagnosed cases of osteoporosis or at high risk for fracture should have regular bone mineral density tests. For patients eligible for Medicare, routine testing is allowed once every 2 years. The testing frequency can be increased to one year for patients who have rapidly progressing disease, those who are receiving or discontinuing medical therapy to restore bone mass, or have additional risk factors.
== END 2022-05-16 12:58 | disposition home or self-care (01) ==
LOC: HO.MAMMO 12:57
PROVIDERS: PCP Nurse Practitioner Family; Visit Provider Student in an Organized Health Care Education/Training Program
DX: Z13.820 Encounter for screening for osteoporosis (principal); Z79.52 Long term (current) use of systemic steroids; Z78.0 Asymptomatic menopausal state
CPT/HCPCS: 77080

== ENCOUNTER → 2022-05-24 12:27 | Outpatient (BNVA) | payer BC, SELFPAY | PROVIDERS: PCP Nurse Practitioner Family; Visit Provider Internal Medicine | DX: Z13.89 Encounter for screening for other disorder (principal) ==

== ENCOUNTER → 2022-06-06 13:21 | Outpatient (BNVA) | payer BC, SELFPAY | PROVIDERS: PCP Nurse Practitioner Family; Visit Provider Student in an Organized Health Care Education/Training Program | DX: Z13.89 Encounter for screening for other disorder (principal) ==

== ENCOUNTER 2022-06-15 09:50 | Outpatient (REF) | payer BC, SELFPAY ==
[2022-06-15 10:12] LABS: MANUAL DIFF FLAG NO
[2022-06-15 10:53] LABS: Basophils Percent Auto 0.4 % (0-2); Eosinophils Absolute Auto 0.1 X10*3/uL (0.0-0.4); Eosinophils Percent Auto 1.1 % (0-4); Hematocrit 40.7 % (37.0-47.0); Hemoglobin 13.8 g/dl (12.0-16.0); Imm Gran Abs Auto 0.02 X10*3/uL (0.00-0.03); Imm Gran Pct Auto 0.2 % (0.0-0.4); Lymphocytes Absolute Auto 1.6 X10*3/uL (1.2-4.9); Lymphocytes Percent Auto 19.8 % (20-40); Mean Corpuscular HGB Conc 33.9 g/dl (31.0-35.0); Mean Corpuscular Hemoglobin 30.3 pg (27.0-33.0); Mean Corpuscular Volume 89.5 fL (80.0-98.0); Mean Platelet Volume 10.5 fL (9.4-12.3); Monocytes Absolute Auto 0.6 X10*3/uL (0.1-1.2); Monocytes Percent Auto 7.4 % (2-11); Neutrophils Absolute Auto 5.9 x10*3/uL (2.0-8.3); Neutrophils Percent Auto 71.1 % (45-73); Platelet Count 227 X10*3/uL (160-400); Red Blood Count 4.55 X10*6/uL (4.20-5.50); Red Cell Distribution Width 12.4 % (11.0-16.0); White Blood Count 8.3 X10*3/uL (4.8-10.8)
[2022-06-15 11:40] LABS: Alanine Aminotransferase 16 U/L (0-31); Albumin Level 4.1 g/dL (3.5-5.0); Alkaline Phosphatase 111 U/L (39-117); Anion Gap 12 (12-20); Aspartate Amino Transferase 19 U/L (5-31); Bilirubin Total 1.1 mg/dL (0.0-1.0); Blood Urea Nitrogen 9 mg/dL (9-16); Carbon Dioxide 27 mmol/L (22-29); Chloride 108 mmol/L (96-108); Cholesterol 202 mg/dL; Estimated Glomerular Filt Rate > 60; Glucose Fasting 87 mg/dL (60-99); HDL Cholesterol 66 mg/dL; LDL Cholesterol Calculated 113 mg/dl; Potassium 4.1 mmol/L (3.3-5.1); Sodium 143 mmol/L (135-145); Triglycerides 115 mg/dL
[2022-06-15 11:59] LABS: TSH reflex Free T4 3.11 uIU/mL (0.32-4.0); Vitamin D 25-OH Total 17.3 ng/mL (>30)
[2022-06-15 12:14] LABS: Folate 5.7 ng/mL (> or = 4.0); Free T4 (Free Thyroxine) 1.01 ng/dL (0.71-1.85); Thyroid Stimulating Hormone 3.17 uIU/mL (0.32-4.0); Vitamin B12 279 pg/mL (200-900)
== END 2022-06-15 09:51 | disposition home or self-care (01) ==
LOC: HO.LAB 09:50
PROVIDERS: Internal Medicine; PCP Nurse Practitioner Family; Visit Provider Nurse Practitioner Family
DX: M06.9 Rheumatoid arthritis, unspecified (principal); E04.2 Nontoxic multinodular goiter; E55.9 Vitamin D deficiency, unspecified; R19.7 Diarrhea, unspecified; M79.7 Fibromyalgia; G47.33 Obstructive sleep apnea (adult) (pediatric); G58.8 Other specified mononeuropathies; M35.1 Other overlap syndromes; J84.9 Interstitial pulmonary disease, unspecified; R00.1 Bradycardia, unspecified
CPT/HCPCS: 36415; 80053; 80061; 82306; 82607; 82746; 84439; 84443; 85025

== ENCOUNTER → 2022-07-02 13:29 | Outpatient (BNVA) | payer BC, SELFPAY | PROVIDERS: PCP Nurse Practitioner Family; Visit Provider Hospitalist | DX: Z13.89 Encounter for screening for other disorder (principal); R91.8 Other nonspecific abnormal finding of lung field; M35.1 Other overlap syndromes ==

== ENCOUNTER → 2022-07-06 13:54 | Outpatient (BNVA) | payer BC, SELFPAY | PROVIDERS: PCP Nurse Practitioner Family; Visit Provider Nurse Practitioner Family ==

== ENCOUNTER → 2022-07-16 10:22 | Outpatient (BNVA) | payer BC, SELFPAY | PROVIDERS: PCP Nurse Practitioner Family; Visit Provider Nurse Practitioner Family | DX: B02.29 Other postherpetic nervous system involvement (principal) | CPT/HCPCS: 17999; J7336 ==

== ENCOUNTER 2022-08-07 11:30 | Outpatient (REF) | payer BC, SELFPAY ==
--- NOTE | ~2022-08-07 | US_ITS ---
EXAMINATION: US ABDOMEN LIMITED CLINICAL INFORMATION: Right upper quadrant pain. COMPARISON: CT abdomen and pelvis 01/13/2022. TECHNIQUE: Real-time imaging of the right upper quadrant abdominal viscera. FINDINGS: PANCREAS: Normal. LIVER: Normal. The liver is normal in size. The liver contour is normal. Parenchymal echogenicity is normal. No focal hepatic lesion. There is no intrahepatic biliary duct dilatation seen. GALLBLADDER: Cholecystectomy. COMMON BILE DUCT: Normal in caliber measuring 0.6 cm in diameter. RIGHT KIDNEY: Normal. No hydronephrosis. No renal calculi or focal parenchymal lesions. The kidney measures 9.8 cm in maximum dimension. FREE FLUID: None. US/US abdomen limited IMPRESSION: No acute sonographic abnormalities to explain the patient's symptoms.
== END 2022-08-07 11:31 | disposition home or self-care (01) ==
LOC: HO.US 11:30
PROVIDERS: PCP Nurse Practitioner Family; Visit Provider Nurse Practitioner Family
DX: R10.11 Right upper quadrant pain (principal)
CPT/HCPCS: 76705

== ENCOUNTER 2022-08-15 06:05 | Outpatient (REF) | payer BC, SELFPAY ==
--- NOTE | ~2022-08-15 | FL_ITS ---
EXAMINATION: XR FLUOROSCOPY WITH IMAGES CLINICAL INFORMATION: Other post herpetic nervous system involvement. COMPARISON: None available. TECHNIQUE: Fluoroscopy Supervised By: Dr. Lopez Fluoroscopy Time: 0.7 minutes. Cumulative Dose: 15.4 mGy. DAP: 2.09 Gycm2. Images: 2. FINDINGS: Images demonstrate needle placement over the lower thoracic or upper lumbar spine. FL/FL guidance in treatment room IMPRESSION: Fluoroscopy guidance for pain management procedure
== END 2022-08-15 06:06 | disposition home or self-care (01) ==
LOC: CF 06:05
PROVIDERS: Visit Provider Internal Medicine
DX: B02.29 Other postherpetic nervous system involvement (principal); M54.14 Radiculopathy, thoracic region; M79.7 Fibromyalgia
CPT/HCPCS: 62323

== ENCOUNTER 2022-08-21 14:06 | Outpatient (REF) | payer BC, SELFPAY ==
[2022-08-21 14:53] LABS: Leukocytes Stool Qualitative NEGATIVE (NEGATIVE)
[2022-08-21 15:28] LABS: CDiff Gene PCR NEGATIVE (Negative)
== END 2022-08-21 14:07 | disposition home or self-care (01) ==
LOC: HO.LNP 14:06
PROVIDERS: Nurse Practitioner; Visit Provider Nurse Practitioner Family
DX: K59.04 Chronic idiopathic constipation (principal); R19.7 Diarrhea, unspecified
CPT/HCPCS: 87177; 87209; 87338; 87493; 89055

== ENCOUNTER → 2022-08-23 12:31 | Outpatient (BNVA) | payer BC, SELFPAY | PROVIDERS: PCP Nurse Practitioner Family; Visit Provider Nurse Practitioner ==

== ENCOUNTER 2022-08-30 08:02 | Outpatient (REF) | payer BC, SELFPAY ==
--- NOTE | ~2022-08-30 | MM_ITS ---
EXAMINATION: MM SCREENING DIGITAL BREAST TOMOSYNTHESIS, BILATERAL CLINICAL INFORMATION: Screening. Asymptomatic. The lifetime risk of breast cancer based on the Tyrer-Cuzick Model is 15.6%. COMPARISON: Mammography: This study is compared with the prior mammograms dating back to November 2018. TECHNIQUE: Digital breast tomosynthesis is performed in both the craniocaudal and mediolateral oblique views along with computer-aided detection (CAD). Synthesized 2D images are generated from the tomosynthesis. FINDINGS: There are scattered areas of fibroglandular density (ACR BI-RADS breast composition Category b). There are no significant masses, abnormal calcifications, or other abnormalities. There is a tissue marker present in the lateral aspect of the left breast from prior benign percutaneous biopsy. MM/MM tomosynthesis screening BI IMPRESSION: No mammographic evidence of malignancy. ASSESSMENT: BI-RADS BI-RADS 2 - Benign Findings RECOMMENDATION: Routine annual mammography screening. 1 year F/U This patient's information was entered into a reminder system with a target due date for their next mammogram.
== END 2022-08-30 08:03 | disposition home or self-care (01) ==
LOC: HO.MAMMO 08:02
PROVIDERS: PCP Nurse Practitioner Family; Visit Provider Nurse Practitioner Family
DX: Z12.31 Encounter for screening mammogram for malignant neoplasm of breast (principal)
CPT/HCPCS: 77063; 77067

== ENCOUNTER → 2022-08-30 08:15 | Outpatient (BNV) | payer BC, SELFPAY | PROVIDERS: PCP Nurse Practitioner Family; Visit Provider Radiology Diagnostic Radiology | DX: Z12.31 Encounter for screening mammogram for malignant neoplasm of breast (principal) | CPT/HCPCS: 77063; 77067 ==

== ENCOUNTER 2022-09-13 11:08 | Outpatient (AMB) | payer BC, SELFPAY ==
--- NOTE | 2022-09-13 11:19 | A.OFFVIS_ITS ---
Intake Vital Signs 09/13/22 11:23 Height 5 ft 2 in Weight 212 lb 2 oz BMI 38.8 BP 129/82 Blood Pressure Location Lt radial Position Sitting Pulse 61 Pulse Source Pulse Oximeter Pulse Oximetry (%) 99 Oxygen Delivery Method Room Air Intake Visit Reasons: s/p Right parasagittal T5-T6 WHIT Intake Note: Pain today 11/11 Human Service Coordinator Required: No Accompanied by: Spouse Allergies levofloxacin Allergy (Severe, Verified 09/13/22 11:23) hives HPI HPI Comments History of Present Illness Details Patient presents today to assess response to Right parasagittal T5-T6 WHIT injection on 08/15/[address] Lopez. Patient reports 90% pain relief for one week after procedure after which her pain returned to baseline. Patient continues to endorse right sided mid back pain radiating to her right abdomen consistent with postherpetic neuralgia. Patient reports pain continues to affect her basic daily activities, functioning, sleep, mood, quality of life and exacerbates her fibromyalgia symptoms. She had first round of Qutenza patch application on 07/16/22 and has another patch application scheduled for 10/16/22. Denies any recent cough, cold, infection, fever or other significant changes in medical history since last office visit. PRIOR: Patient is a pleasant 52 years old female with history of rheumatoid arthritis previously on immunomodulators including methotrexate and Humira presents today with widespread pain head to toe related to fibromyalgia. Her main pain generator today is presenting with right sided mid back pain radiating to her right abdomen to postherpetic neuralgia. Patient also underwent video-assisted thoracoscopy with a wedge resection of the right upper lobe and also a right middle lobe lobectomy on 06/07/[address] Stapleton. She reports right sided intercostal pain with tingling, numbness, sharp, burning sensations along T5-T6 dermatomes since lung surgery. Reports this pain is worst at night and rates it as 20/10 at nighttime. She presents with localized tenderness just below bra line on the right and this extends to the right anterior upper abdomen. Reports history of shingles in 2019 and states she received treatment for shingles rash by Dr. Navarro at [facility]. Her pain is consistent with post herpetic neuralgia and right intercostal neuralgia. Patient is currently taking gabapentin and lidocaine patches which have not helped. She notes taking oxycodone for pain with better pain relief. Reports therapeutic injections 6 years ago at [facility] with good relief. Pain affects her daily activities, functioning, sleep, mood, social interactions and quality of life. Denies previous physical therapy, massage, TENS unit, chiropractic therapy and aqua therapy. Patient is intersted to undergo thoracic WHIT injections and Qutenza application for PHN to alleviate her symtpoms. 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 RUQ pain Sarcoidosis Sarcoidosis SOB (shortness of breath) Thyroid nodule Transaminitis Surgical History History of breast biopsy History of section History of cholecystectomy History of hysterectomy History of laparoscopic adjustable gastric banding History of lung surgery History of tubal ligation Hx of abdominoplasty Family History Father Cardiovascular disease Mother Cardiovascular disease Hypertension Thyroid condition Daughter Thyroid condition Rheumatoid arthritis Sister Thyroid condition Brother Rheumatoid arthritis Social History Housing: House Alcohol intake: current Alcohol intake frequency: holidays/special occasions only Patient Tobacco Use Status: Former Tobacco user Tobacco use type: Cigarette Years Smoked: 15 years quit about 20 years ago e-Cigarette/Vaping Use: Never Used Second Hand Smoke Exposure: Yes service: No Current occupational status: unemployed Current occupation: rt handed Cognitive needs: No Hearing needs: No Vision needs: Yes Review of Systems Const All systems reviewed & are unremarkable except as noted in HPI and below Neuro Denies confusion Psych Denies confusion Physical Exam Vital Signs: Last Vital Signs Pulse 61 09/13/22 11:23 BP 129/82 09/13/22 11:23 Pulse Ox 99 09/13/22 11:23 Oxygen Delivery Method Room Air 09/13/22 11:23 BMI result Body Mass Index 38.8 Const General: cooperative, no acute distress, alert, awake and well groomed; No confusion Nutritional Appearance: well nourished and obese Orientation/consciousness: No confusion HEENT Head: Yes normal to inspection and Yes normocephalic Eyes General: appearance normal, both eyes and all related structures Chest Other: Localized tenderness mid back to right upper abdomen. Scarring and TTP with light palpation is noted from a prior shingles rash in right T5-T6 dermatome distribution. Chest palpation & inspection: normal inspection of the chest, no crepitus, tenderness (T5-T6), No Pacemaker present, No rash and other (well healed scars r/t right middle lobectomy, RUL wedge resection) Breast/axilla inspection: normal inspection of the axillae Resp Effort & Inspection: normal respiratory effort, able to speak in complete sentences, no respiratory distress and symmetric chest movement Back/Spine/Pelvis Cervical Spine: cervical ROM normal and No Cervical spine tenderness Thoracic/Lumbar Spine: thoracic and lumbar spine normal to inspection, paraspinal muscle tenderness, No thoracic spinal tenderness and No lumbar spinal tenderness Neuro General: No confusion Extrem General: Yes capillary refill normal, Yes no clubbing, cyanosis or edema and Yes no calf tenderness Psych Appearance: grossly normal and well kempt Mental Status: mental status grossly normal Speech and movement: Normal speech and movement present and Clear speech present Affect: normal affect Attitude: cooperative Thought process: Normal thought process present Thought content: Normal thought content present Insight: Good insight present (Psych) Judgement: Good judgement present (Psych) Results Reviewed Results Reviewed: US ABDOMEN LIMITED 08/07/22 CLINICAL INFORMATION: Right upper quadrant pain. COMPARISON: CT abdomen and pelvis 01/13/2022. FINDINGS: PANCREAS: Normal. LIVER: Normal. The liver is normal in size. The liver contour is normal. Parenchymal echogenicity is normal. No focal hepatic lesion. There is no intrahepatic biliary duct dilatation seen. GALLBLADDER: Cholecystectomy. COMMON BILE DUCT: Normal in caliber measuring 0.6 cm in diameter. RIGHT KIDNEY: Normal. No hydronephrosis. No renal calculi or focal parenchymal lesions. The kidney measures 9.8 cm in maximum dimension. FREE FLUID: None. IMPRESSION: No acute sonographic abnormalities to explain the patient's symptoms. Assessment & Plan Assessment & Plan (1) Thoracic radiculitis: Code(s): M54.14 - Radiculopathy, thoracic region (2) Intercostal neuralgia: Code(s): G58.8 - Other specified mononeuropathies (3) Post herpetic neuralgia: Code(s): B02.29 - Other postherpetic nervous system involvement (4) Fibromyalgia, primary: Code(s): M79.7 - Fibromyalgia Plan 1. Patient is status post Right parasagittal T5-T6 WHIT injection 08/15/22 with good but temporary results. 2. Script provided for Duloxetine provided today for PHN and fibromyalgia. Discussed side effects and precautions with patient. 3. Proceed with Qutenza 2nd round application as scheduled next month. EMLA cream and lidocaine patches scripts sent today. All questions were answered and the patient is in agreement with the treatment plan. Follow-up as needed. Medications: New duloxetine 30 mg PO DAILY 30 days 30 caps 1RF pain B02.29 - Other postherpetic nervous system involvement, G58.8 - Other specified mononeuropathies, M54.14 - Radiculopathy, thoracic region, M79.7 - Fibromyalgia Changed From lidocaine-prilocaine 2.5-2.5 % Apply 30 min to affected area prior to Qutenza patch application on 07/16/22 1 appl topical ONCE 1 day 30 grams 0RF pain B02.29 - Other postherpetic nervous system involvement To lidocaine-prilocaine 2.5-2.5 % Apply 30 min to affected area prior to Qutenza patch applications 1 appl topical ONCE 1 day 30 grams 0RF pain B02.29 - Other postherpetic nervous system involvement Refilled lidocaine 5% (Lidoderm) leave on most painful area for up to 12 hrs 1 patch topical DAILY 30 days 30 ea 12RF B02.29 - Other postherpetic nervous system involvement Coding Level of Care Code Est Pt Level 4 (86975) Diagnoses Thoracic radiculitis M54.14 Intercostal neuralgia G58.8 Post herpetic neuralgia B02.29 Fibromyalgia, primary M79.7
[2022-09-13 11:23] VITALS: BP 129/82; PULSE 61; O2SAT 99; BMI 38.8
== END 2022-09-13 11:36 | disposition home or self-care (01) ==
PROVIDERS: PCP Nurse Practitioner Family; Visit Provider Nurse Practitioner Family
DX: M54.14 Radiculopathy, thoracic region (principal); B02.29 Other postherpetic nervous system involvement; M79.7 Fibromyalgia; G58.8 Other specified mononeuropathies
CPT/HCPCS: 99214

== ENCOUNTER → 2022-09-13 11:08 | Outpatient (BNVA) | payer BC, SELFPAY | PROVIDERS: PCP Nurse Practitioner Family; Visit Provider Nurse Practitioner Family ==

== ENCOUNTER 2022-09-20 12:48 | Outpatient (AMB) | payer BC, SELFPAY ==
--- NOTE | 2022-09-20 12:53 | MHC.OFFVIS ---
Intake Vital Signs 09/20/22 12:56 Height 5 ft 2 in Weight 209 lb 14.081 oz BMI 38.4 BP 124/57 L Blood Pressure Location Rt brachial Position Sitting Pulse 79 Intake Visit Reasons: 4 week follow up Intake Note: Marisabel presents in the office as a 4 week follow up of CREON CC: She states that Creon is causing her constipation. Denies other GI symptoms. [employer] Supervisor Required: Yes [employer] Supervisor Name: spouse Accompanied by: Spouse Allergies levofloxacin Allergy (Severe, Verified 09/20/22 13:03) hives HPI 4 week follow up HPI Details Assessment & Plan (1) Irritable bowel syndrome with both constipation and diarrhea: ?Code(s): K58.2 - Mixed irritable bowel syndrome ?Plan: HP stool and? o&P still pending. So far the C diff and the fecal leukocytes are negative. The Amitiza did not help. She stlll had diarrhea and then CIC despite taking it bid every day. Next, we will try creon. It is puzzling what may be driving the back and forth of her bowels, but it does not seem to be an infection such as c diff and the there are no leukocytes. She says her mother had carlos same problem which prompts a discussion of functional bowel disorders and the elusiveness of a pure diagnosis and tailored treatment. She has a great deal of gas and bloating. This may be a clue about the quality of her digestion.? It is possible to gas trapping is driving the bowel irritability. ROV 4 weeks. to eval creaon and simethicone. ? ? ? Medications: New xavpjn-cfcsjorf-gk ylase 36,000-114,0 00- 180,000 unit ( Creon) ?? administ er with meals and/ or snacks 1 cap? PO QID 120 caps 3RF ? ? simethicone ?? aft er meals 180 mg? PO QID 30 days 120 caps 3RF ? ? Refilled omeprazole 40 mg? PO DAILY 90 days 90 caps 1RF A ? ? Discontinued lubiprostone (Ruddy ruba) ?? Discontinu ed Reason:? Doctor 's Order 24 mcg? PO BID 30 days 60 caps 3RF K59.04 - Chronic i diopathic constipa tion LABS: Laboratory Tests 08/21/22 08/21/22 11:26 11:26 Stool Leukocytes, Qual NEGATIVE Stool H. pylori Ag NEGATIVE 08/21/22-[address]: ORDERED: Ova and Parasit Test Result Flag Referen ce Sit e Ova Trichrome S EE NOTE QUM OVA AND PARASITES, CONC AN D PERM SMEAR Micro Number: [id number] Test Status: Final Specimen Source : Stool Specimen Quality: Adequate CONCENTRATION 1: No ova or jackie ites seen TRICHROME 1: No ova or parasi lizbeth seen COLONOSCOPY not called to schedule BIOPSY TODAY'S VISIT The creon stopped her diarrhea, but now she is constipated. She asks if she should re start the Amitiza, but I think we will reduce the dose. She has failed all OTCs in the past. She uses a lot of fiber. She continues on her simethicone, but her insurance has not covered her omeprazole ([employer] does not like PPIs), so I will try sending famotidine. I educate her that they may need to buy it OTC. I will try prescribing Amitiza at the 8 micro g dose 2 tabs twice a day to bring her to a dose that is more in the middle of what she has tried in the past. They have not heard yet to schedule the colonoscopy. ROV 4 weeks. [facility] Medical History Chest pain Chronic idiopathic constipation COVID-19 Dizziness ILD (interstitial lung disease) Insomnia Lump of left thigh Lung mass Lymphadenopathy Mixed connective tissue disease Multinodular thyroid ÁNGELA (obstructive sleep apnea) Pleuritic chest pain Pneumonia Post herpetic neuralgia [id number] syndrome RUQ pain Sarcoidosis Sarcoidosis SOB (shortness of breath) Thyroid nodule Transaminitis Surgical History History of breast biopsy History of section History of cholecystectomy History of hysterectomy History of laparoscopic adjustable gastric banding History of lung surgery History of tubal ligation Hx of abdominoplasty Family History Father Cardiovascular disease Mother Cardiovascular disease Hypertension Thyroid condition Daughter Thyroid condition Rheumatoid arthritis Sister Thyroid condition Brother Rheumatoid arthritis Social History Housing: House Alcohol intake: current Alcohol intake frequency: holidays/special occasions only Patient Tobacco Use Status: Former Tobacco user Tobacco use type: Cigarette Years Smoked: 15 years quit about 20 years ago e-Cigarette/Vaping Use: Never Used Second Hand Smoke Exposure: Yes service: No Current occupational status: unemployed Current occupation: rt handed Cognitive needs: No Hearing needs: No Vision needs: Yes Review of Systems Const Denies fatigue, Denies fever(s), Denies night sweats, Denies poor appetite and Denies weight loss Eyes Details: glasses Reports requires corrective lenses ENT Reports Normal hearing present, Denies dental pain, Denies dysphagia, Denies hearing loss, Denies mouth pain, Denies odynophagia, Denies throat swelling, Denies tongue swelling and Reports other (Dentition adequate) Card Reports no additional complaints Resp Reports no additional complaints GI Denies abdominal pain, Denies melena, Reports bloating, Denies hematochezia, Reports constipation, Denies GI cramping, Denies dysphagia, Denies excessive flatus, Denies early satiety, Reports heartburn, Reports diarrhea, Denies nausea, Denies odynophagia, Denies vomiting and Denies hematemesis Skin/Breast Denies pruritus, Denies lesions, Denies rash and Denies jaundice Neuro Reports Normal hearing present and Denies Abnormal speech present Endo Denies fatigue Aller/Immun Denies throat swelling and Denies tongue swelling Physical Exam Vital Signs: Last Vital Signs Pulse 79 09/20/22 12:56 BP 124/57 L 09/20/22 12:56 BMI result Body Mass Index 38.4 Const General: cooperative, no acute distress, well developed and well groomed Nutritional Appearance: well nourished and obese Orientation/consciousness: oriented to person, oriented to place and oriented to time Limitations: No language barrier HEENT Head: Yes normocephalic and Yes atraumatic Eyes General: appearance normal, both eyes and all related structures Pupils: Equal, round and reactive pupils present Neck Neck: Yes normal visual inspection and Yes no lymphadenopathy Thyroid: Thyroid normal Resp Effort & Inspection: normal respiratory effort and able to speak in complete sentences Auscultation: clear to auscultation bilaterally Cardio Rate: regular rate Rhythm: regular rhythm Heart sounds: Normal, physiologic split S2 sound present Peripheral pulses: radial pulses present and posterior tibial pulses present GI Inspection: No distended, No Abdominal panniculus present and Yes obesity Palpation (GI): Soft to palpation, nontender, no guarding, not rigid and No hepatosplenomegaly present Percussion: Yes normal to percussion Auscultation: normal bowel sounds Rectal Exam - Female: deferred Skin General skin exam: no rashes or lesions noted, turgor normal, skin not dry, no jaundice, No spider nevi and no striae Rashes: no rashes Nails: normal Neuro General: oriented to person, oriented to place and oriented to time Cranial nerves: Yes Equal, round and reactive pupils present and Yes Normal hearing present Speech: No Abnormal speech present Extrem General: Yes normal to inspection, No clubbing, No cyanosis and No edema Psych Appearance: grossly normal and well kempt Mental Status: mental status grossly normal Speech and movement: Normal speech and movement present Affect: normal affect Attitude: cooperative Thought process: Normal thought process present and not confabulating Thought content: Normal thought content present Insight: Limited insight present (Psych) Judgement: Limited judgement present (Psych) Assessment & Plan Assessment & Plan (1) Irritable bowel syndrome with both constipation and diarrhea: Code(s): K58.2 - Mixed irritable bowel syndrome Plan: The creon stopped her diarrhea, but now she is constipated. She asks if she should re start the Amitiza, but I think we will reduce the dose. She has failed all OTCs in the past. She uses a lot of fiber. She continues on her simethicone, but her insurance has not covered her omeprazole ([employer] does not like PPIs), so I will try sending famotidine. I educate her that they may need to buy it OTC. I will try prescribing Amitiza at the 8 micro g dose 2 tabs twice a day to bring her to a dose that is more in the middle of what she has tried in the past. They have not heard yet to schedule the colonoscopy. ROV 4 weeks. (2) GERD (gastroesophageal reflux disease): Code(s): K21.9 - Gastro-esophageal reflux disease without esophagitis Medications: New lubiprostone (Amitiza) 16 mcg (2 x 8 mcg) PO BID 120 caps 3RF K58.2 - Mixed irritable bowel syndrome famotidine (Pepcid) 40 mg PO BEDTIME 30 tabs 6RF On Hold omeprazole Hold Comment: insurance not covering 40 mg PO DAILY 90 days 90 caps 1RF Coding Level of Care Code Est Pt Level 3 (09947) Diagnoses Irritable bowel syndrome with both constipation and diarrhea K58.2 GERD (gastroesophageal reflux disease) K21.9
[2022-09-20 12:56] VITALS: BP 124/57; PULSE 79; BMI 38.4
== END 2022-09-20 13:31 | disposition home or self-care (01) ==
PROVIDERS: PCP Nurse Practitioner Family; Visit Provider Nurse Practitioner
DX: K58.2 Mixed irritable bowel syndrome (principal); K21.9 Gastro-esophageal reflux disease without esophagitis
CPT/HCPCS: 99213

== ENCOUNTER → 2022-09-20 12:48 | Outpatient (BNVA) | payer BC, SELFPAY | PROVIDERS: PCP Nurse Practitioner Family; Visit Provider Nurse Practitioner ==

== ENCOUNTER 2022-10-17 13:08 | Outpatient (AMB) | payer BC, SELFPAY ==
--- NOTE | 2022-10-17 13:09 | A.OFFVIS_ITS ---
Intake Vital Signs 10/17/22 13:23 10/17/22 14:17 10/17/22 15:16 10/17/22 15:17 10/17/22 15:18 Height 5 ft 2 in Weight 211 lb BMI 38.6 BP 128/80 144/92 H 182/88 H 124/79 148/76 H Blood Pressure Location Lt radial Lt radial Rt radial Rt radial Rt radial Position Sitting Sitting Sitting Sitting Sitting Respiration 16 16 16 16 16 Pulse 69 62 58 55 56 Pulse Source Pulse Oximeter Pulse Oximeter Pulse Oximeter Pulse Oximeter Pul se Oximeter Pulse Oximetry (%) 99 97 100 99 100 Oxygen Delivery Method Room Air Room Air Room Air Room Air Room Air Comment 30 min 50 min 55 min 60 min Intake Visit Reasons: Qutenza - PHN Allergies levofloxacin Allergy (Severe, Verified 10/17/22 16:21) hives HPI HPI Comments History of Present Illness Details Marisabel today is in my office to follow-up on her condition and received Qutenza treatment for her post herpetic neuralgia. The patient previously received 1 application of the qutenza patch without significant side effects. She came to the office today with EMLA cream application on the area of her herpetic rash. Her initial vital signs were stable with blood pressure on lower side. She was examined and post herpetic rash was noted in the projection of approximate midaxillary line, however there were no acute open vesicles in the projection of the rashes. The patient blood pressure will be monitored. The patient will continue with the treatment as tolerated. Right parasagittal T5-T6 WHIT injection on 08/15/22 (Dr. Lopez.) 90% pain relief for one week after procedure after which her pain returned to baseline. Patient continues to endorse right sided mid back pain radiating to her right abdomen consistent with postherpetic neuralgia. Patient reports pain continues to affect her basic daily activities, functioning, sleep, mood, quality of life and exacerbates her fibromyalgia symptoms. She had first round of Qutenza patch application on 07/16/22 and has another patch application scheduled for 10/16/22. Denies any recent cough, cold, infection, fever or other significant changes in medical history since last office visit. PRIOR: Patient is a pleasant 52 years old female with history of rheumatoid arthritis previously on immunomodulators including methotrexate and Humira history of widespread pain head to toe related to fibromyalgia. Also right sided mid back pain radiating to her right abdomen secondary to postherpetic neuralgia. Patient also underwent video-assisted thoracoscopy with a wedge resection of the right upper lobe and also a right middle lobe lobectomy on 06/07/[address] Stapleton. She reports right sided intercostal pain with tingling, numbness, sharp, burning sensations along T5-T6 dermatomes since lung surgery. pain is worst at night and rates it as 20/10 at nighttime. On physical exam localized tenderness just below bra line on the right and this extends to the right anterior upper abdomen. History of shingles in 2019, she received treatment for shingles rash by Dr. Navarro at [facility]. Her pain is consistent with post herpetic neuralgia and right intercostal neuralgia. Attempted gabapentin and lidocaine patches which have not helped. She is taking oxycodone for pain with better pain relief. Reports therapeutic injections 6 years ago at [place] with good relief. Pain affects her daily activities, functioning, sleep, mood, social interactions and quality of life. Denies previous physical therapy, massage, TENS unit, chiropractic therapy and aqua therapy. [facility] Medical History Chest pain Chronic idiopathic constipation COVID-19 Dizziness ILD (interstitial lung disease) Insomnia Lump of left thigh Lung mass Lymphadenopathy Mixed connective tissue disease Multinodular thyroid ÁNGELA (obstructive sleep apnea) Pleuritic chest pain Pneumonia Post herpetic neuralgia [id number] syndrome RUQ pain Sarcoidosis Sarcoidosis SOB (shortness of breath) Thyroid nodule Transaminitis Surgical History History of breast biopsy History of section History of cholecystectomy History of hysterectomy History of laparoscopic adjustable gastric banding History of lung surgery History of tubal ligation Hx of abdominoplasty Family History Father Cardiovascular disease Mother Cardiovascular disease Hypertension Thyroid condition Daughter Thyroid condition Rheumatoid arthritis Sister Thyroid condition Brother Rheumatoid arthritis Social History Housing: House Alcohol intake: current Alcohol intake frequency: holidays/special occasions only Patient Tobacco Use Status: Former Tobacco user Tobacco use type: Cigarette Years Smoked: 15 years quit about 20 years ago Smoked in Last 30 Days: No e-Cigarette/Vaping Use: Never Used Second Hand Smoke Exposure: Yes Advance Directives: No Advance Directives Information Provided: No service: No Current occupational status: unemployed Current occupation: rt handed Cognitive needs: No Hearing needs: No Vision needs: Yes Review of Systems Const All systems reviewed & are unremarkable except as noted in HPI and below Physical Exam Vital Signs: Last Vital Signs Pulse 56 10/17/22 15:18 Resp 16 10/17/22 15:18 BP 148/76 H 10/17/22 15:18 Pulse Ox 100 10/17/22 15:18 Oxygen Delivery Method Room Air 10/17/22 15:18 BMI result Body Mass Index 38.6 Const General: cooperative, no acute distress, alert, awake and well groomed Nutritional Appearance: well nourished and obese HEENT Head: Yes normal to inspection and Yes normocephalic Eyes General: appearance normal, both eyes and all related structures Chest Other: Localized tenderness mid back to right upper abdomen. Scarring and TTP with light palpation is noted from a prior shingles rash in right T5-T6 dermatome distribution. Chest palpation & inspection: normal inspection of the chest, no crepitus, tenderness (T5-T6), No Pacemaker present, No rash and other (well healed scars r/t right middle lobectomy, RUL wedge resection) Breast/axilla inspection: normal inspection of the axillae Resp Effort & Inspection: normal respiratory effort, able to speak in complete sentences, no respiratory distress and symmetric chest movement Back/Spine/Pelvis Cervical Spine: cervical ROM normal and No Cervical spine tenderness Thoracic/Lumbar Spine: thoracic and lumbar spine normal to inspection, paraspinal muscle tenderness, No thoracic spinal tenderness and No lumbar spinal tenderness Extrem General: Yes capillary refill normal, Yes no clubbing, cyanosis or edema and Yes no calf tenderness Psych Appearance: grossly normal and well kempt Mental Status: mental status grossly normal Speech and movement: Normal speech and movement present and Clear speech present Affect: normal affect Attitude: cooperative Thought process: Normal thought process present Thought content: Normal thought content present Insight: Good insight present (Psych) Judgement: Good judgement present (Psych) Results Reviewed Results Reviewed: US ABDOMEN LIMITED 08/07/22 CLINICAL INFORMATION: Right upper quadrant pain. COMPARISON: CT abdomen and pelvis 01/13/2022. FINDINGS: PANCREAS: Normal. LIVER: Normal. The liver is normal in size. The liver contour is normal. Parenchymal echogenicity is normal. No focal hepatic lesion. There is no intrahepatic biliary duct dilatation seen. GALLBLADDER: Cholecystectomy. COMMON BILE DUCT: Normal in caliber measuring 0.6 cm in diameter. RIGHT KIDNEY: Normal. No hydronephrosis. No renal calculi or focal parenchymal lesions. The kidney measures 9.8 cm in maximum dimension. FREE FLUID: None. IMPRESSION: No acute sonographic abnormalities to explain the patient's symptoms. Assessment & Plan Assessment & Plan (1) Thoracic radiculitis: Code(s): M54.14 - Radiculopathy, thoracic region (2) Intercostal neuralgia: Code(s): G58.8 - Other specified mononeuropathies (3) Post herpetic neuralgia: Code(s): B02.29 - Other postherpetic nervous system involvement (4) Fibromyalgia, primary: Code(s): M79.7 - Fibromyalgia Plan 1. Patient is status post Right parasagittal T5-T6 WHIT injection 08/15/22 with good but temporary results. 2. Proceed with Qutenza 2nd round application as scheduled. EMLA cream and lidocaine patches applied by patient. Soon after application Qutenza patch she developed tachycardia, elevated blood pressure and she started to complain on the retrosternal chest pain in difficulty breathing. Her O2 sat was stable. She was appear to be hyperventilating. She was complaining on intractable burning on the application of the patch side. The patch was removed. The EMLA cream was applied. The blood pressure remained elevated. The patient was offered to go to urgent care unit however [facility] found out that the closest to her home urgent Care Unit takes people only on appointment and not walk ins. She attempted to seek attention in our emergency room. However she was told that she is 36th in line. She got returned to the office however in the office we had no measured to resuscitate or help her with the pain. By this time her exiting grew higher her blood pressure remained unstable and she started to complain to more chest pain. She is on chronic opioid therapy and obviously develops opioid induced hyperalgesia. Ambulance was called and the patient was delivered to the emergency room. 3. Follow-up will be scheduled with [employer]. Coding Level of Care Code Est Pt Level 4 (12368) Diagnoses Thoracic radiculitis M54.14 Intercostal neuralgia G58.8 Post herpetic neuralgia B02.29 Fibromyalgia, primary M79.7
[2022-10-17 13:23] VITALS: BP 128/80; PULSE 69; RESP 16; O2SAT 99; BMI 38.6
[2022-10-17 14:17] VITALS: BP 144/92; PULSE 62; RESP 16; O2SAT 97
[2022-10-17 15:16] VITALS: BP 182/88; PULSE 58; RESP 16; O2SAT 100
[2022-10-17 15:17] VITALS: BP 124/79; PULSE 55; RESP 16; O2SAT 99
[2022-10-17 15:18] VITALS: BP 148/76; PULSE 56; RESP 16; O2SAT 100
== END 2022-10-17 15:05 | disposition home or self-care (01) ==
PROVIDERS: PCP Nurse Practitioner Family; Visit Provider Anesthesiology
DX: M54.14 Radiculopathy, thoracic region (principal); B02.29 Other postherpetic nervous system involvement; M79.7 Fibromyalgia
CPT/HCPCS: 99214

== ENCOUNTER → 2022-10-17 13:08 | Outpatient (BNVA) | payer BC, SELFPAY | PROVIDERS: PCP Nurse Practitioner Family; Visit Provider Anesthesiology ==

== ENCOUNTER 2022-10-17 15:14 | Emergency (ER) | payer BC, SELFPAY | END 2022-10-17 19:55 | disposition left against medical advice (07) | LOC: HO.ED 19:46 | PROVIDERS: Emergency Provider Emergency Medicine; PCP Nurse Practitioner Family | DX: I10 Essential (primary) hypertension (principal) ==

== ENCOUNTER 2022-10-17 16:12 | Emergency (ER) | payer BC, SELFPAY ==
--- NOTE | 2022-10-17 | ECG_ITS ---
Test Reason : CP Blood Pressure : / mmHG Vent. Rate : 065 BPM Atrial Rate : 065 BPM P-R Int : 136 ms QRS Dur : 070 ms QT Int : 428 ms P-R-T Axes : 037 026 008 degrees QTc Int : 445 ms Normal sinus rhythm with sinus arrhythmia Normal ECG When compared with ECG of 13-JAN-2022 14:41, No significant change was found Referred By: Generic ED Physician Electronically Signed By:GINO COOPER
[2022-10-17 16:16] VITALS: BP 124/78; PULSE 66; PULSE 68; RESP 24; TEMP 36.6; O2SAT 100; O2SAT 98; BMI 38.6
[2022-10-17 16:25] VITALS: BP 131/63; PULSE 73; RESP 18; O2SAT 100
--- NOTE | 2022-10-17 16:34 | ED.GENADULT ---
HPI - General Adult General Chief complaint: Allergic Reaction Stated complaint: CP Time Seen by Provider: 10/17/22 16:29 History of Present Illness HPI narrative: Patient With shingles on the right T5-T6 dermatomal area when to pain clinic and received Qutenza patch within few minutes of a pinkish in the bed patient up felt chest pain very anxious blood pressure went high 180/80 and noticed chest tightness patient has received the same patch before without any significant side effects Related Data Home Medications Medication Instructions Recorded Confirmed mecobalamin (vitamin B12) 1,000 1,000 mcg sublingual DAILY 09/19/20 06/19/22 mcg disintegrating tablet,sublingual gabapentin 300 mg capsule 600 mg PO BEDTIME PRN 02/22/22 06/19/22 biotin 5 mg capsule 5 mg PO DAILY 07/02/22 nebulizers 07/02/22 meclizine 25 mg tablet 25 mg PO TID-QID 08/23/22 hydroxychloroquine 200 mg tablet 200 mg PO DAILY 09/13/22 Previous Rx's Medication Instructions Recorded albuterol sulfate 2.5 mg/3 mL 2.5 mg (3 mL) inhalation Q6H PRN 10/25/20 (0.083 %) solution for nebulization shortness of breath or wheezing #225 mL budesonide 0.5 mg/2 mL suspension 0.5 mg (2 mL) inhalation BID #360 10/16/21 for nebulization mL budesonide-formoterol HFA 160 2 puff PO BID #30.6 ea 10/18/21 mcg-4.5 mcg/actuation aerosol inhaler albuterol sulfate 90 mcg/actuation 2 puff PO Q6H PRN shortness of 01/01/22 aerosol inhaler breath or wheezing #8.5 grams eszopiclone 1 mg tablet (Lunesta) 1 mg PO BEDTIME 90 days #90 tabs 01/04/22 folic acid 1 mg tablet 1 mg PO DAILY 90 days #90 tabs 05/16/22 abatacept 125 mg/mL subcutaneous 125 mg subcut QWEEK #4 mL 06/12/22 auto-injector (Orencia ClickJect) diclofenac sodium 1 % topical gel 4 g topical QID pain #180 grams 07/08/22 (Arthritis Pain (diclofenac)) peg 3350-electrolytes 236 240 ml PO Q10M 1 day #4,000 mL 08/02/22 gram-22.74 gram-6.74 gram-5.86 gram solution (Golytely) cholecalciferol (vitamin D3) 125 125 mcg PO DAILY #30 caps 08/23/22 mcg (5,000 unit) capsule [id number] 1 cap PO QID #120 caps 08/23/22 36,000-114,000-180,000 unit capsule,delay rel (Creon) simethicone 180 mg capsule 180 mg PO QID 30 days #120 caps 08/23/22 duloxetine 30 mg capsule,delayed 30 mg PO DAILY pain 30 days #30 09/13/22 release caps lidocaine 5 % topical patch 1 patch topical DAILY 30 days #30 09/13/22 (Lidoderm) ea lidocaine-prilocaine 2.5 %-2.5 % 1 appl topical ONCE pain 1 day #30 09/13/22 topical cream grams famotidine 40 mg tablet (Pepcid) 40 mg PO BEDTIME #30 tabs 09/20/22 lubiprostone 8 mcg capsule 16 mcg PO BID #120 caps 09/20/22 (Amitiza) omeprazole 40 mg capsule,delayed 40 mg PO DAILY 90 days #90 caps 09/20/22 release Allergies Allergy/AdvReac Type Severity Reaction Status Date / Time levofloxacin Allergy Severe hives Verified 10/17/22 16:21 Review of Systems Review of Systems: Yes all other systems are reviewed and are negative PMF Past Medical History Medical History Chest pain Chronic idiopathic constipation COVID-19 Dizziness ILD (interstitial lung disease) Insomnia Lump of left thigh Lung mass Lymphadenopathy Mixed connective tissue disease Multinodular thyroid ÁNGELA (obstructive sleep apnea) Pleuritic chest pain Pneumonia Post herpetic neuralgia 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 RUQ pain Sarcoidosis Sarcoidosis SOB (shortness of breath) Thyroid nodule Transaminitis Surgical History History of breast biopsy History of section History of cholecystectomy History of hysterectomy History of laparoscopic adjustable gastric banding History of lung surgery History of tubal ligation Hx of abdominoplasty Family History Family History Father Cardiovascular disease Mother Cardiovascular disease Hypertension Thyroid condition Daughter Thyroid condition Rheumatoid arthritis Sister Thyroid condition Brother Rheumatoid arthritis Social History Social History Housing: House Alcohol intake: current Alcohol intake frequency: holidays/special occasions only Patient Tobacco Use Status: Former Tobacco user Tobacco use type: Cigarette Years Smoked: 15 years quit about 20 years ago Smoked in Last 30 Days: No e-Cigarette/Vaping Use: Never Used Second Hand Smoke Exposure: Yes Advance Directives: No Advance Directives Information Provided: No service: No Current occupational status: unemployed Current occupation: rt handed Cognitive needs: No Hearing needs: No Vision needs: Yes Physical Exam ED Vital Signs: Vital Signs - 24 hr 10/17/22 16:16 10/17/22 16:25 10/17/22 17:01 Temperature 97.8 F Pulse Rate 68 73 Respiratory Rate 24 H 18 16 Blood Pressure 131/63 Pulse Oximetry 100 100 Oxygen Delivery Method Room Air Room Air BMI result Body Mass Index 38.6 Appearance: Alert. Oriented X3. No acute distress. Patient very anxious Eyes: PERRLA, No Nystagmus ENT: Pharynx normal. Oral Mucosa moist Neck: Normal inspection. Neck supple. CVS: Normal heart rate and rhythm. Pulses normal. Respiratory: No respiratory distress. Equal air entry bilateral, no wheezing/rales/rhonchi Abdomen: Soft and nontender. Bowel sounds are present, no mass palpable, no CVA tenderness Skin: Skin warm and dry. Normal skin color. Normal skin turgor. Rash on right side of chest with slight erythema of the chest wall Extremities: No lower extremity edema. No calf tenderness Neuro: Oriented X 3. No motor deficit. Medications Administered Discontinued Medications Generic Name Dose Route Start Last Admin Trade Name Freq PRN Reason Stop Dose Admin Diphenhydramine HCl 25 mg 10/17/22 16:36 10/17/22 16:59 Diphenhydramine Hcl 50 Mg/Ml Vial IVPUSH 10/17/22 16:37 25 mg ONCE ONE Administration Morphine Sulfate 4 mg 10/17/22 16:36 10/17/22 17:01 Morphine Sulfate 4 Mg/Ml Cartridge IVPUSH 10/17/22 16:37 4 mg ONCE ONE Administration Protocol Ondansetron HCl 4 mg 10/17/22 16:36 10/17/22 16:56 Ondansetron Hcl 4 Mg/2 Ml Vial IVPUSH 10/17/22 16:37 4 mg ONCE ONE Administration Medical Decision Making Medical Decision Making [facility] Narrative: Patient with atypical chest pain with anxiety feeling much better after morphine labs are normal heart score of 0 discharge patient home Lab Data [facility] Lab Attestation statement: I reviewed the patient's lab results. 10/17/22 17:04 10/17/22 17:04 Labs: Lab Results 10/17/22 10/17/22 10/17/22 Range/Units 17:04 17:04 17:04 WBC 7.2 (4.8-10.8) X10*3/uL RBC 4.31 (4.20-5.50) X10*6/uL Hgb 13.3 (12.0-16.0) g/dl Hct 39.3 (37.0-47.0) % MCV 91.2 (80.0-98.0) fL MCH 30.9 (27.0-33.0) pg MCHC 33.8 (31.0-35.0) g/dl RDW 11.9 (11.0-16.0) % Plt Count 198 (160-400) X10*3/uL MPV 10.5 (9.4-12.3) fL Immature Gran % (Auto) 0.3 (0.0-0.4) % Neut % (Auto) 71.3 (45-73) % Lymph % (Auto) 20.8 (20-40) % [place] % (Auto) 6.7 (2-11) % Eos % (Auto) 0.6 (0-4) % Baso % (Auto) 0.3 (0-2) % Lymph # (Auto) 1.5 (1.2-4.9) X10*3/uL [place] # (Auto) 0.5 (0.1-1.2) X10*3/uL Eos # (Auto) 0.0 (0.0-0.4) X10*3/uL Baso # (Auto) 0.0 (0.0-0.2) X10*3/uL Abs Immat Gran (auto) 0.02 (0.00-0.03) X10*3/uL Absolute Neuts (auto) 5.1 (2.0-8.3) x10*3/uL Absolute Nucleated RBC 0.000 (0.0-0.012) X10*3/uL Nucleated RBC % (auto) 0.0 (0.0-0.2) /100WBC Sodium 141 (135-145) mmol/L Potassium 3.7 (3.3-5.1) mmol/L Chloride 108 (96-108) mmol/L Carbon Dioxide 22 (22-29) mmol/L Anion Gap 15 (12-20) BUN 8 L (9-16) mg/dL Creatinine 0.76 (0.5-1.4) mg/dL Estim Creat Clear Calc 95.5 Estimated GFR > 60 Random Glucose 98 (60-115) mg/dL Calcium 9.3 (8.4-10.2) mg/dL Troponin I High Sens < 2.7 (<3.5-17.0) ng/L Independent Interpretation I performed an independent interpretation of an: EKG Interpretation: Normal sinus rhythm heart rate 65 beats per min normal interval normal axis no acute ST-T changes no acute ischemia Discharge Plan Discharge Clinical Impression: Medication side effects, Anxiety Patient Disposition: Home, Self-Care Instructions: Adverse Drug Reaction (ED), Anxiety (ED) Additional Instructions: Take medication as prescribed by your pain clinic/PCP Prescriptions: No Action albuterol sulfate 2.5 mg /3 mL (0.083 %) solution for nebulization 2.5 mg inhalation Q6H PRN (Reason: shortness of breath or wheezing) Qty: 225 11RF budesonide 0.5 mg/2 mL suspension for nebulization 0.5 mg inhalation BID Qty: 360 3RF budesonide-formoterol 160-4.5 mcg/actuation HFA aerosol inhaler 2 puff PO BID Qty: 30.6 3RF folic acid 1 mg tablet 1 mg PO DAILY 90 Days Qty: 90 11RF Orencia ClickJect 125 mg/mL auto-injector 125 mg subcut QWEEK Qty: 4 1RF cholecalciferol (vitamin D3) 125 mcg (5,000 unit) capsule 125 mcg PO DAILY Qty: 30 6RF mecobalamin (vitamin B12) 1,000 mcg tablet,disintegrating 1,000 mcg sublingual DAILY albuterol sulfate 90 mcg/actuation HFA aerosol inhaler 2 puff PO Q6H PRN (Reason: shortness of breath or wheezing) Qty: 8.5 9RF gabapentin 300 mg capsule 600 mg PO BEDTIME PRN biotin 5 mg capsule 5 mg PO DAILY (DME) nebulizers Misc See Rx Instructions .ROUTE Rx Instructions: As directed eszopiclone [Lunesta] 1 mg tablet 1 mg PO BEDTIME 90 Days Qty: 90 0RF meclizine 25 mg tablet 25 mg PO TID-QID Creon 36,000-114,000- 180,000 unit capsule,delayed release(DR/EC) 1 cap PO QID Qty: 120 3RF Rx Instructions: administer with meals and/or snacks simethicone 180 mg capsule 180 mg PO QID 30 Days Qty: 120 3RF Rx Instructions: after meals lubiprostone [Amitiza] 8 mcg capsule 16 mcg PO BID Qty: 120 3RF omeprazole 40 mg capsule,delayed release(DR/EC) 40 mg PO DAILY 90 Days Qty: 90 1RF Hold Instructions: insurance not covering famotidine [Pepcid] 40 mg tablet 40 mg PO BEDTIME Qty: 30 6RF diclofenac sodium [Arthritis Pain (diclofenac)] 1 % gel 4 g topical QID Qty: 180 1RF Rx Instructions: Apply 1-3 grams (pumps) to the affected area 3-4 times daily. peg 3350-electrolytes [Golytely] 236-22.74-6.74 -5.86 gram recon soln 240 ml PO Q10M 1 Days Qty: 4000 0RF Rx Instructions: until fecal effluent is clear; do not exceed a total volume of 2,000 mL hydroxychloroquine 200 mg tablet 200 mg PO DAILY duloxetine 30 mg capsule,delayed release(DR/EC) 30 mg PO DAILY 30 Days Qty: 30 1RF lidocaine [Lidoderm] 5 % adhesive patch,medicated 1 patch topical DAILY 30 Days Qty: 30 12RF Rx Instructions: leave on most painful area for up to 12 hrs lidocaine-prilocaine 2.5-2.5 % cream 1 appl topical ONCE 1 Days Qty: 30 0RF Rx Instructions: Apply 30 min to affected area prior to Qutenza patch applications
[2022-10-17] MEDS: ondansetron HCL 4 MG/2 ML VIAL IVPUSH (16:56)
[2022-10-17] MEDS: diphenhydrAMINE HCL 50 MG/ML VIAL 25 MG IVPUSH (16:59)
[2022-10-17 17:01] VITALS: RESP 16
[2022-10-17] MEDS: Morphine Sulfate 4 MG/ML CARTRIDGE IVPUSH (17:01)
[2022-10-17 17:08] LABS: MANUAL DIFF FLAG NO
[2022-10-17 17:18] LABS: Basophils Percent Auto 0.3 % (0-2); Eosinophils Percent Auto 0.6 % (0-4); Hematocrit 39.3 % (37.0-47.0); Hemoglobin 13.3 g/dl (12.0-16.0); Imm Gran Abs Auto 0.02 X10*3/uL (0.00-0.03); Imm Gran Pct Auto 0.3 % (0.0-0.4); Lymphocytes Absolute Auto 1.5 X10*3/uL (1.2-4.9); Lymphocytes Percent Auto 20.8 % (20-40); Mean Corpuscular HGB Conc 33.8 g/dl (31.0-35.0); Mean Corpuscular Hemoglobin 30.9 pg (27.0-33.0); Mean Corpuscular Volume 91.2 fL (80.0-98.0); Mean Platelet Volume 10.5 fL (9.4-12.3); Monocytes Absolute Auto 0.5 X10*3/uL (0.1-1.2); Monocytes Percent Auto 6.7 % (2-11); Neutrophils Absolute Auto 5.1 x10*3/uL (2.0-8.3); Neutrophils Percent Auto 71.3 % (45-73); Platelet Count 198 X10*3/uL (160-400); Red Blood Count 4.31 X10*6/uL (4.20-5.50); Red Cell Distribution Width 11.9 % (11.0-16.0); White Blood Count 7.2 X10*3/uL (4.8-10.8)
--- NOTE | 2022-10-17 17:23 | PC.NURSE ---
Pt arrived via EMS, reporting she was at her PCP office for shingles on her Right flank. They applied an Qutenza patch to her scalp and at 1315ish . She reports being on the phone with her daughter when she started to not feel good. Reporting she normally has low BP, Sys normally in low 100's BP was in 160's at time of episode, provider removed patch and washed area. They attempted to get her into urgent care who denied her, and then she came here, reporting CP/SOB/N, reporting throat feels itchy. Pt able to maintain a full conversation at this time, vitals stable.
[2022-10-17 17:32] LABS: Anion Gap 15 (12-20); Blood Urea Nitrogen 8 mg/dL (9-16); Calcium 9.3 mg/dL (8.4-10.2); Carbon Dioxide 22 mmol/L (22-29); Chloride 108 mmol/L (96-108); Creatinine Clr Calc Pharmacy 95.5; Estimated Glomerular Filt Rate > 60; Glucose Random 98 mg/dL (60-115); Potassium 3.7 mmol/L (3.3-5.1); Sodium 141 mmol/L (135-145)
[2022-10-17 17:49] LABS: Troponin-I High Sensitivity < 2.7 ng/L (<3.5-17.0)
== END 2022-10-17 19:10 | disposition home or self-care (01) ==
PROVIDERS: Emergency Provider Internal Medicine; PCP Nurse Practitioner Family
DX: R07.89 Other chest pain (principal); F41.1 Generalized anxiety disorder; I49.9 Cardiac arrhythmia, unspecified; F43.0 Acute stress reaction; Z79.899 Other long term (current) drug therapy
CPT/HCPCS: 36415; 80048; 84484; 85025; 93005; 96374; 96375; 99284; J1200; J2270; J2405

== ENCOUNTER 2022-10-30 13:31 | Outpatient (AMB) | payer BC, SELFPAY ==
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
[2022-10-30 13:38] VITALS: BP 120/84; BMI 38.8
== END 2022-10-30 14:22 | disposition home or self-care (01) ==
LOC: HO.HWS 13:31
PROVIDERS: PCP Nurse Practitioner Family; Visit Provider Advanced Practice Midwife
DX: Z01.419 Encounter for gynecological examination (general) (routine) without abnormal findings (principal); N88.8 Other specified noninflammatory disorders of cervix uteri; R68.82 Decreased libido; R23.2 Flushing
CPT/HCPCS: 99386

== ENCOUNTER 2022-10-30 13:31 | Outpatient (REF) | payer BC, SELFPAY ==
[2022-11-02 21:59] LABS: HPV mRNA E6/E7 rflx Not Detected (Not Detected)
== END 2022-10-30 13:32 | disposition home or self-care (01) ==
LOC: HO.LNP 13:31
PROVIDERS: PCP Nurse Practitioner Family; Visit Provider Advanced Practice Midwife
DX: Z01.419 Encounter for gynecological examination (general) (routine) without abnormal findings (principal); Z11.51 Encounter for screening for human papillomavirus (HPV); N88.8 Other specified noninflammatory disorders of cervix uteri
CPT/HCPCS: 87624; 88142

== ENCOUNTER 2022-11-07 12:47 | Outpatient (REF) | payer BC, SELFPAY ==
--- NOTE | ~2022-11-07 | CT_ITS ---
EXAMINATION: CT CHEST WITHOUT CONTRAST CLINICAL INFORMATION: Abnormal lung findings. COMPARISON: Chest x-ray 04/30/2022. CT chest 01/19/2022. TECHNIQUE: Multidetector volumetric CT imaging of the chest was done. Axial MIP volume rendering provided. Sagittal and coronal reformatted images were obtained. This CT examination was performed using dose optimization techniques as appropriate, variously including the following: *Automated exposure control *Adjustment of mA and/or kV according to patient size (this includes techniques or standardized protocols for targeted exams where dose is matched to indication/reason for exam; i.e. extremities or head) *Use of iterative reconstruction technique DLP: 155 mGy-cm FINDINGS: DESTINATION COORDINATOR: The lungs are somewhat expanded with patchy opacity in the right parahilar region of mid lung. LUNGS: The lungs are well expanded with postsurgical changes of the right middle lobe. There is a soft tissue mass in the surgical site of the right upper lobe with postobstructive patchy opacities, likely infiltrates or ill-defined nodules. The findings appear progressed since the previous study. The primary lesion at the surgical site measures 3.0 x 3.2 cm on axial image 211/5. Previously, it measured 3.0 x 2.0 cm on axial slice 183/7. The measurements can be slightly different from the last exam depending on the slice and plane of the scan. There is a 5 mm perivascular nodule right lower lobe axial image 241/5, stable. MEDIASTINUM: The thyroid lobes are symmetrical and normal. The central trachea and the bronchi are widely patent. The heart size and the great vessels are normal caliber. There is a 1.2 cm pretracheal lymph node which appears stable. There are small additional paratracheal and aortic window lymph nodes which are stable as well. CORONARY ARTERY CALCIFICATION: None visualized on this study. PLEURA: There is no pleural effusion. No pleural mass or thickening. AXILLA: Small shotty lymph nodes seen in bilateral axillae. The chest wall is grossly unremarkable. UPPER ABDOMEN: The visualized liver, spleen, pancreas, and bilateral adrenal glands are unremarkable. OSSEOUS STRUCTURES: No aggressive lytic or sclerotic process seen. CT/CT chest wo IV con IMPRESSION: Status post right middle lobe lobectomy. There is chronic scarring which is mass-like and has slightly increased in size. There are ill-defined patchy adjacent opacities and nodules which are likely satellite nodules or postobstructive atelectasis. The irregular-appearing mass itself appears enlarged in width. There is a small nodule in the right lower lobe perivascular which is stable. Recommend PET/CT for further evaluation. The rest of the lung parenchyma appears unremarkable. Stable pretracheal lymph node. Fleischner guidelines were followed.
== END 2022-11-07 12:48 | disposition home or self-care (01) ==
LOC: HO.CT 12:47
PROVIDERS: PCP Nurse Practitioner Family; Visit Provider Hospitalist
DX: R91.8 Other nonspecific abnormal finding of lung field (principal)
CPT/HCPCS: 71250

== ENCOUNTER 2022-11-08 11:08 | Day surgery (SDC) | payer BC, SELFPAY ==
[2022-11-06 15:12] VITALS: BMI 38.4
--- NOTE | 2022-11-07 10:41 | P.CONAN_ITS ---
Documented by User: Barbara Ingram NP 11/07/22 10:42 [facility] Active Problems Active Problems: All Active Problems (Updated 10/30/22 @ 14:16 by Nikole Chaparro) Cervical mass (Acute) Hot flashes (Acute) Low libido (Acute) GERD (gastroesophageal reflux disease) (Acute) Irritable bowel syndrome with both constipation and diarrhea (Acute) Thoracic radiculitis (Acute) Pre-op examination (Acute) Intercostal neuralgia (Acute) Post herpetic neuralgia (Acute) Low vitamin D level (Acute) Obesity (BMI 30-39.9) (Acute) Adult general medical exam (Acute) Diarrhea (Acute) Screening for breast cancer (Acute) Cervical cancer screening (Acute) Screening for colon cancer (Acute) Bilateral primary osteoarthritis of knee (Acute) 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, unspecified (Acute) Fibromyalgia, primary (Acute) custodial systemic steroid user (Acute) Pleuritic chest pain (Acute) Multinodular thyroid (Acute) Mixed connective tissue disease (Acute) 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) Sinusitis (Acute) COVID-19 (Acute) Headache (Acute) Vertigo (Acute) ÁNGELA (obstructive sleep apnea) (Acute) Right ankle sprain (Acute) Ankle pain (Acute) Chest pain (Acute) RUQ pain (Acute) Thyroid nodule (Acute) Lymphadenopathy (Acute) Insomnia (Acute) ILD (interstitial lung disease) (Acute) Sarcoidosis (Acute) Seropositive rheumatoid arthritis (Acute) Lung mass (Acute) Bradycardia (Acute) Transaminitis (Acute) Pneumonia (Acute) Sarcoidosis (Acute) Past Medical History Medical History Cervical mass Hot flashes Low libido BRCA gene positive Chronic idiopathic constipation Post herpetic neuralgia Pleuritic chest pain Multinodular thyroid Mixed connective tissue disease [id number] syndrome COVID-19 Lump of left thigh ÁNGELA (obstructive sleep apnea) Chest pain RUQ pain Thyroid nodule Lymphadenopathy Insomnia ILD (interstitial lung disease) Sarcoidosis Lung mass Dizziness SOB (shortness of breath) Transaminitis Pneumonia Sarcoidosis Family History Family History Father Cardiovascular disease Mother Cardiovascular disease Hypertension Thyroid condition Daughter Thyroid condition Rheumatoid arthritis Sister Thyroid condition Brother Rheumatoid arthritis Surgical History Surgical History History of lung surgery History of breast biopsy Hx of abdominoplasty History of laparoscopic adjustable gastric banding History of tubal ligation History of section History of hysterectomy History of cholecystectomy Social History Social History Housing: House Alcohol intake: current Alcohol intake frequency: holidays/special occasions only Patient Tobacco Use Status: Former Tobacco user Tobacco use type: Cigarette Years Smoked: 15 years quit about 20 years ago e-Cigarette/Vaping Use: Never Used Second Hand Smoke Exposure: Yes Have you been hit, kicked, punched, or otherwise hurt by someone within the past year? If so, by whom?: No Are you DNR?: No Advance Directives: No Advance Directives Information Provided: Yes Recently lost weight without trying: No Eating poorly because of decreased appetite: No Nutrition Risks: No Nutritional Risk Patient : No service: No Current occupational status: unemployed Current occupation: rt handed Cognitive needs: No Hearing needs: No Vision needs: Yes Meds Allergies Allergy/AdvReac Type Severity Reaction Status Date / Time levofloxacin Allergy Severe hives Verified 10/30/22 13:38 Home Medications Medication Instructions Recorded Confirmed Last Taken Type mecobalamin (vitamin B12) 1,000 1,000 mcg sublingual DAILY 09/19/20 11/06/22 Unknown History mcg disintegrating tablet,sublingual gabapentin 300 mg capsule 600 mg PO BEDTIME PRN Pain 02/22/22 11/06/22 Unknown History biotin 5 mg capsule 5 mg PO DAILY 07/02/22 11/06/22 Unknown History nebulizers 07/02/22 Unknown History meclizine 25 mg tablet 25 mg PO TID-QID 08/23/22 11/06/22 Unknown History hydroxychloroquine 200 mg tablet 200 mg PO DAILY 09/13/22 11/06/22 Unknown History Exam Exam Date and Time: November 07, 2022 1041 Height,Weight and Vital Signs: Height 5 ft 2 in Weight 95.254 kg Pertinent Lab Results Pertinent Lab Results: Laboratory Tests 10/17/22 10/17/22 17:04 17:04 WBC 7.2 Hgb 13.3 Hct 39.3 Plt Count 198 Sodium 141 Potassium 3.7 Chloride 108 Carbon Dioxide 22 BUN 8 L Creatinine 0.76 Narrative Narrative: EKG 10/2022 Vent. Rate : 065 BPM ? ? Atrial Rate : 065 BPM ?? P-R Int : 136 ms? QRS Dur : 070 ms ? ? QT Int : 428 ms ? ? ? P-R-T Axes : 037 026 008 degrees ?? QTc Int : 445 ms ? Normal sinus rhythm with sinus arrhythmia Normal ECG When compared with ECG of 13-JAN-2022 14:41, No significant change was found Assessment and Plan Assessment Anesthesia Assessment: Chart Reviewed Documented by User: Myesha Beal MD 11/08/22 13:28 HPI - Anesthesia Eval Consult details Narrative: for screening [facility] Past Medical History Medical History Cervical mass Hot flashes Low libido BRCA gene positive Chronic idiopathic constipation Post herpetic neuralgia Pleuritic chest pain Multinodular thyroid Mixed connective tissue disease [id number] syndrome COVID-19 Lump of left thigh ÁNGELA (obstructive sleep apnea) Chest pain RUQ pain Thyroid nodule Lymphadenopathy Insomnia ILD (interstitial lung disease) Sarcoidosis Lung mass Dizziness SOB (shortness of breath) Transaminitis Pneumonia Sarcoidosis Family History Family History Father Cardiovascular disease Mother Cardiovascular disease Hypertension Thyroid condition Daughter Thyroid condition Rheumatoid arthritis Sister Thyroid condition Brother Rheumatoid arthritis Family history of problems with anesthesia: No Surgical History Surgical History History of lung surgery History of breast biopsy Hx of abdominoplasty History of laparoscopic adjustable gastric banding History of tubal ligation History of section History of hysterectomy History of cholecystectomy Social History Social History Housing: House Alcohol intake: current Alcohol intake frequency: holidays/special occasions only Patient Tobacco Use Status: Former Tobacco user Tobacco use type: Cigarette Years Smoked: 15 years quit about 20 years ago e-Cigarette/Vaping Use: Never Used Second Hand Smoke Exposure: Yes Have you been hit, kicked, punched, or otherwise hurt by someone within the past year? If so, by whom?: No Are you DNR?: No Advance Directives: No Advance Directives Information Provided: Yes Recently lost weight without trying: No Eating poorly because of decreased appetite: No Nutrition Risks: No Nutritional Risk Patient : No service: No Current occupational status: unemployed Current occupation: rt handed Cognitive needs: No Hearing needs: No Vision needs: Yes Meds Allergies Allergy/AdvReac Type Severity Reaction Status Date / Time levofloxacin Allergy Severe hives Verified 10/30/22 13:38 Home Medications Medication Instructions Recorded Confirmed Last Taken Type mecobalamin (vitamin B12) 1,000 1,000 mcg sublingual DAILY 09/19/20 11/06/22 Unknown History mcg disintegrating tablet,sublingual gabapentin 300 mg capsule 600 mg PO BEDTIME PRN Pain 02/22/22 11/06/22 Unknown History biotin 5 mg capsule 5 mg PO DAILY 07/02/22 11/06/22 Unknown History nebulizers 07/02/22 Unknown History meclizine 25 mg tablet 25 mg PO TID-QID 08/23/22 11/06/22 Unknown History hydroxychloroquine 200 mg tablet 200 mg PO DAILY 09/13/22 11/06/22 Unknown History Exam Airway Mallampati Class: II TM Dist: <=3cm Neck ROM: Limited Partial: Upper Heart: rrr Lungs: cta Assessment and Plan Assessment Anesthesia Assessment: Anesthesia Plan Discussed Final Anesthetic Review Family History of Problems with Anesthesia: No NPO: Yes ASA Class: III Final Preanesthetic Review: No Changes in Pt Med Stat, Meds/Allgs Chart Reviewed, Consent Obtained/Reviewed and Anes Risks/Benef Reviewed Patient Risk: Intermediate Procedure Risk: Low Anesthetic Plan Anesthetic Plan: MAC: Disposition: Standard PACU
[2022-11-08 12:10] VITALS: BP 133/72; PULSE 58; RESP 16; TEMP 36.4; O2SAT 99; BMI 39.3
--- NOTE | 2022-11-08 14:13 | MHC.SHP ---
Pre-Procedural Eval Section A Date of Service: 11/08/22 The patient is an INPATIENT: No The History & Physical has been completed within 30 days and I have reviewed it.: No Section B Chief Complaint: Screening, IBS with diarrhea and constipation Relevant Family History (Specify if Yes): No Relevant Social History: Tobacco Use (Former smoker) Present Medications: see Short Stay Collaborative assessment Medical History: Significant History (Chronic idiopathic constipation COVID-19 Dizziness ILD (interstitial lung disease) Insomnia Lump of left thigh Lung mass Lymphadenopathy Mixed connective tissue disease Multinodular thyroid ÁNGELA (obstructive sleep apnea) Pleuritic chest pain Pneumonia Post herpetic neuralgia 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 RU) History of Previous Operations: Relevant previous surgery/procedure and date(s) (History of breast biopsy History of section History of cholecystectomy History of hysterectomy History of laparoscopic adjustable gastric banding History of lung surgery History of tubal ligation Hx of abdominoplasty) Allergies: Allergies Allergy/AdvReac Type Severity Reaction Status Date / Time levofloxacin Allergy Severe hives Verified 10/30/22 13:38 Review of Systems Sugical H&P ROS: Negative: Constitution, Cardiovascular, Respiratory and Gastrointestinal Exam Surgical H&P Exam: Normal: Heart, Normal: Lungs, Normal: Extremities and Normal: Abdomen Plan Diagnosis/Plan: Unchanged I have reviewed the history and physical and performed a pertinent physical examination on my patient. No changes have occurred unless specified. Time Spent With Patient Time: Total time managing care of this patient today ____ minutes.
--- NOTE | 2022-11-08 14:18 | W.PM.OPN ---
Operative Note Operative Note Date of Service: 11/08/22 Narrative: COLONOSCOPY TILL CECUM WITH BIOPSIES AND SNARE POLYPECTOMY Pre-op diagnosis: Colon cancer screening Post-op diagnosis:? Colon polyps, diverticulosis Endoscopist:? Eufemia Arellano MD Anesthesia:?MAC Consent: Indications for the procedure and potential complications of bleeding, perforation, reaction to medications and missed diagnosis were discussed with the patient and informed consent was obtained. Instrument: Olympus PCF H 190 L variable stiffness pediatric colonoscope Monitoring: Vital signs and clinical assessment, intermittent blood pressure monitoring, continuous EKG monitoring, Pulse oximetry and Carbon Dioxide monitoring were done throughout the procedure. Please see anesthesia flowsheet. Colon withdrawl time was 23 minutes. Procedure: The patient was placed in the left lateral decubitis position and pre-procedure medications were administered. After a digital rectal examination of the ano-rectum, the video colonoscope was inserted into the rectum and advanced through the colon to the cecum. The colonoscope was slowly withdrawn in a retrograde panoramic fashion and the colon mucosa was carefully examined including a retroflexed view of the rectum. Findings and interventions are described below. Procedure Difficulty: Without difficulty Findings: Terminal Ileum: Not evaluated Cecum: Normal Ascending Colon: Normal Transverse Colon: Normal Descending Colon: A 10 -12 mm sessile polyp - removed with a cold snare Sigmoid Colon: Moderate diverticulosis Rectum: A 10 mm sessile polyp - removed with cold snare Ano-rectum: Normal Colon preparation: Good Impression and Post Procedure Diagnosis: Colonoscopy Findings: Two medium sized polyps removed Random biopsies were obtained from right and left colon to check for microscopic colitis Moderate diverticulosis seen in the sigmoid colon Plan: Await pathology results Patient has an appointment on 11/22/22 in the [facility] with Arianna Arthur NP. Repeat Colonoscopy interval based on path results - in 3-5 years if polyps are adenomatous and 10 years if polyps are hyperplastic. Above findings were reviewed with the patient and colon polyps and diverticulosis handouts were given in the discharge area
[2022-11-08 15:15] VITALS: BP 111/68; PULSE 72; RESP 16; TEMP 36.2
[2022-11-08 15:30] VITALS: BP 107/68; PULSE 60; RESP 20; TEMP 37; O2SAT 98
== END 2022-11-08 15:49 | disposition home or self-care (01) ==
PROVIDERS: PCP Nurse Practitioner Family; Visit Provider Internal Medicine Gastroenterology
PROC: 0DJD8ZZ Inspection of Lower Intestinal Tract, Via Natural or Artificial Opening Endoscopic (ICD-10-PCS; CPT 45378; principal; 2022-11-08 13:30)
DX: Z12.11 Encounter for screening for malignant neoplasm of colon (principal); D12.4 Benign neoplasm of descending colon; D12.8 Benign neoplasm of rectum; K57.30 Diverticulosis of large intestine without perforation or abscess without bleeding; K58.2 Mixed irritable bowel syndrome; K21.9 Gastro-esophageal reflux disease without esophagitis; Z87.891 Personal history of nicotine dependence; Z79.899 Other long term (current) drug therapy
CPT/HCPCS: 45380; 45385; 88305

== ENCOUNTER → 2022-11-08 11:08 | Outpatient (BNV) | payer BC, SELFPAY | PROVIDERS: PCP Nurse Practitioner Family; Visit Provider Internal Medicine Gastroenterology | DX: Z12.11 Encounter for screening for malignant neoplasm of colon (principal); D12.4 Benign neoplasm of descending colon; D12.8 Benign neoplasm of rectum; K57.30 Diverticulosis of large intestine without perforation or abscess without bleeding | CPT/HCPCS: 45385 ==

== ENCOUNTER 2022-11-13 14:21 | Outpatient (AMB) | payer BC, SELFPAY ==
--- NOTE | 2022-11-13 14:24 | A.OFFVIS_ITS ---
Intake Vital Signs 11/13/22 14:27 Height 5 ft 2 in Weight 215 lb BMI 39.3 Pulse 77 Pulse Source Pulse Oximeter Pulse Oximetry (%) 99 Oxygen Delivery Method Room Air Intake Visit Reasons: Discuss CT/Labs Results Cotton Buyer Required: No Allergies levofloxacin Allergy (Severe, Verified 11/13/22 14:30) hives Do you need a note to return to daycare/school/sports/work: No HPI HPI Comments History of Present Illness Details The patient is a 52-year-old woman with a known history of rheumatoid arthritis previously on immunomodulators including methotrexate and Humira. Apparently back in May 05, 2018 the patient developed a tooth abscess needing antibiotics. Subsequently complicated by pneumonia. She was admitted to [facility] which was found to have ground-glass opacities bilaterally consistent with pneumonitis and also nodular densities in the right middle lobe. She was evaluated by Pulmonary at that point. If felt necessary for her to have a bronchoscopy. Apparently I do not have the details of the bronchoscopy which she may have had some bleeding therefore not leading to any biopsies. However, her cultures were all negative for infection. Subsequently after that she developed worsening nodular densities in the right upper lobe and also again the right middle lobe on repeat CT scans of the chest and therefore the patient was referred to additional typesetting machine tender and also referred to thoracic surgery. She did undergo a Navagation-guided biopsy of the consolidated lung. Was consistent with non-necrotizing granulomas which is very suspicious of sarcoidosis. The patient has other symptoms in addition to some hair loss she has had some visual loss denies any rashes she has significant arthritis and swelling of her body. The question is if this is related to sarcoid or related to her underlying connective tissue disease. At this point based on the fact that she has failed methotrexate and has significant evidence of sarcoid in addition to interstitial lung disease the patient needs to be placed on immunomodulator therapy. Ther efore, I will send her CellCept. Patient also will take prednisone in the meantime. I did speak to her blending tank tender helper about this. She is scheduled to undergo a CT scan of chest the end of this month. Will see if the medication is helping some size some of the findings. Apparently she was started on CellCept to help her with her inflammatory autoimmune condition. However, after starting the small dose of 500 twice a day the patient started having multiple complaints including lightheadedness, nausea vomiting, memory loss and weakness. She was not started on any other medicine. Therefore the patient came in to be evaluated. She also stop the prednisone about a day ago. She started to develop significant swelling of her hands and risk. Right more than left. She does have a CT scan of the scan plan for the beginning of May. At this point the av request the patient stop the medicine. I will provide her Solu-Medrol 125 mg IM and she should restart the prednisone. I will also refer the patient to the sarcoid clinic at [facility]. Based on the fact the patient has tried and failed methotrexate and now mycophenolate I do not believe immunomodulators are good option for her. Therefore, based on the fact that she has a do a diagnosis of both sarcoidosis and rheumatoid arthritis I do believe using Remicade may be a reasonable option. I will reach out to her blending tank tender helper at t his time. We did discuss her CT scan that she had recently demonstrating interval improvement in her areas of consolidation which is reassuring. 11/03/2019 The patient is here for pulmonary follow-up visit. She is having significant pain issues primarily the right lung causing more pleuritic discomfort. [id number] severity. She also has significant arthritic discomfort primarily her hands shoulders and also toes. She is not sure if she has developed gout. In the meantime she did have a recent CT scan of the chest that we personally reviewed with interval development of a right upper lobe patchy consolidation with tree-in-bud. She was seen by the surgeon in the recommended a surgical biopsy. However, I am concerned with the level of prednisone that she is taking as far as her healing process. She has not been able to decrease her prednisone less than 30 mg. She is also taking Humira and also 6 tablets of methotrexate weekly. She also has an appointment with blending tank tender helper tomorrow and also with the sarcoid clinic in [place] next week. Explained to her my recommendation is to prior to having surgery to undergo a repeat bronchoscopy to make sure that this is not infectious process. She has had multiple bronchoscopies in the past, but, I would recommend repeating it in view of her increased risk poor healing postoperatively. 11/13/2019 the patient is here for pulmonary follow-up visit. The patient is status post bronchoscopy with right upper lobe biopsies. Patient biopsies demonstrated chronic inflammation no evidence of any granulomas. No significant bleeding. She still has discomfort. She also has discomfort in irritation from the anesthesia. All the cultures are negative up today. It appears that this is more of noninfectious inflammatory process. Recently she was increased on the Humira and also will be placed on subcutaneous methotrexate. Patient is being weaned off her prednisone which also cause increased discomfort. At this point will treat her some Tylenol with codeine to help her with her discomfort and hopefully she can take deeper breaths and minimize her cough. 07/14/2020 the patient is here for pulmonary follow-up visit. Since we last spoke the patient did undergo a video-assisted thoracoscopy with a wedge resection of the right upper lobe and also a right middle lobe lobectomy. Patient had the tissue sent for additional pathology demonstrating granulomas in addition to organizing pneumonia and lipid suggesting aspiration. The patient likely has a component of micro aspirations which may be silent at nighttime. She has described dysphagia in the past but typically does cases will be involving more the right lower lobe area where she does not have any findings. The patient has been off prednisone altogether and she has been working on lifestyle changes in avoiding inflammatory foods. Her arthritis seems to be manageable off the prednisone. At this point will focus on micro aspirations. Therefore will start her on a promotility agent and patient will start a reflux diet. The patient will also sleep with head of bed elevated. Will plan to repeat an x-ray to assess her postoperative recovery. She is still having pain at the surgical site. She has no longer getting pain medications from thoracic surgery. I did explain to her that she should no longer be requiring this medication. I will make an exception to give her 1 prescription where she can use as needed with hopes of not requiring any more afterwards. 01/04/2022 this is a telehealth visit. The patient has been lost to follow-up for some time. She ultimately stop her immunomodulator and apparently had been doing well without any significant chest discomfort. Her last imaging study that she had was back in January 2021 at [facility] which she had a CT scan still demonstrating a significant lung mass. She was in usual state [facility] until sometime in November she was diagnosed with COVID-19. Initially she was going to take antiviral medicine but it took too long to get it and she ended up not taking it. She had moderate symptoms and she did become hypoxic during that episode. She did recover but then she started again developing significant pleuritic discomfort similar to the discomfort she had previously she has been having some discomfort which is moderate severity. She which was exposed to another family member with COVID-19 and now she is quarantine and testing. If she does test positive she is not interested in taking the antiviral therapy at this time. She is concerned about the side effects. I did encourage her to consider it specially since she is high risk for severe COVID. At this time will to the patient for the exacerbation of her inflammatory disease. Will also provide her with some analgesics for discomfort. She will be scheduled to undergo repeat CT scan to assess the size of her lung mass and if any progression based on her discomfort and also the fact that she has not been on any therapy for almost a year. 01/17/2022 the patient is here for sick visit. Apparently she recover from her COVID-19 but started developing worsening chest discomfort primarily in the her right side of the chest. Moderate to severe. She started also developing other constitutional symptoms including fevers sinus discomfort you discomfort neck discomfort. She tested multiple times for COVID-19 again specially since she was exposed again and yet she has been negative. She went to the ER because of concerns. There she did have a CT scan of the chest which ruled out pulmonary emboli. However it demonstrated significant ground-glass opacities throughout and that her masslike density was present along with some interval progression of other he has a nodular density suggesting of a progressive or an exacerbation of her process. The patient had been given a prescription for prednisone but she had not use that as yet. She also followed up with her dentist in case she had a dental abscess or issue due to the fact that she has significant facial discomfort. She was found to not have any active dental issues. She did have dental x-rays. We also reviewed her blood work demonstrating an elevated white count with left shift suggesting of an infectious process. It is likely the patient does have a component of sinusitis based on my examination and likely exacerbation of her interstitial lung disease likely from her recent COVID infection. 02/19/2022 the patient is here for pulmonary follow-up visit. She is feeling better from her recent bout of infection and her worsening chest pain. She completed the prednisone. That was partially helpful. She also completed the antibiotics to treat her sinusitis. The patient did have blood work in addition to that had a CT scan of the chest. We did review all the results. The patient does have stable findings as far as her right-sided nodular densities in masslike consolidation. She still complains of the right-sided chest pain. 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 She had been on immunosuppressive therapy with CellCept and also prednisone and then ultimately she stopped all therapies. She was doing very well until she got COVID. Most likely the COVID reactivated alot of the inflammatory processes. She had tried Plaquenil in the past and for some reason it was stopped. At this point it is an option specially with her ongoing pleuritic chest discomfort. It is reassuring that her masslike consolidation in pulmonary nodules have not drastically change when she was off immunomodulator therapy. 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 Therefore she needs to be evaluated again by Rheumatology. She does have an appointment for May but I will try to reschedule her sooner in view of her ongoing symptoms. 04/30/2022 the patient is here for a pulmonary follow-up visit. She is complaining of worsening pleuritic chest discomfort. She had been well until recently and she became sick with likely a viral syndrome. She has been coughing more. She has been concerned because now her pleuritic discomfort that typically is only on her right side now also involving her left. Denies any significant mucus production at this time. Denies any significant shortness of breath. She is scheduled to see Rheumatology sometime this week. Therefore, explained to her that be best to hold off on any steroid therapy that may int erfere with the analysis that will be required. Therefore will work on pain management and also request a chest x-ray. If she has has worsening findings on the x-ray but no be reasonable to treat her more urgently. 07/02/2022 the patient is here for a pulmonary follow-up visit. She is complaining of worsening pleuritic chest discomfort. Moderate in severity. Not any worse. Was referred to pain clinic. Last CT ches was in 01/2022 with lumg mass. She will be starting Orencia soon. Will plan to repeat CT chest after 3-4 month of therapy. Has not required any prednisone. She is confused with her diagnosis. I reassured her that based on her biopsy with non necrotizing granulomas consistent with a sarcoid like activity. Likely a manifestation of her autoimmune disease. Does not appear to be consistent with medication induced or smoldering infections. She also has difficulty sleeping. She is using Lunesta as needed. Currently helping taking care of a so she is not using it as often. 11/13/2022 the patient is here for pulmonary follow-up visit. She continues to have worsening pleuritic discomfort. Moderate to severe. The patient is very discouraged rate now. Her discomfort is primarily on the right side. She is working closely with pain management. In the meantime she did have a CT scan of the chest that I personally reviewed. It appears that the right-sided masslike density has increased in size. Again the biopsy was suggestive of a sarcoid like reaction. She did follow-up with Rheumatology. Appears that her blood work is consistent with rheumatoid arthritis. She was prescribed Orencia however, the patient has not been able to start the medication as of yet. The patient has been off all CellCept and also has not been on any prednisone. Explained to her that with this inflammatory process she does need a component of anti-inflammatory therapy. The patient is also having pain. At this point will provide her with analgesia to provide her with some relief. the patient will start the prednisone and subsequently hopefully start the Orencia soon in order to repeat the CT scan in 3 months time. If the patient does not respond to therapy then referral to [facility] will requested. 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 COVID-19 Lump of left thigh ÁNGELA (obstructive sleep apnea) Chest pain RUQ pain Thyroid nodule Lymphadenopathy Insomnia ILD (interstitial lung disease) Sarcoidosis Lung mass Dizziness SOB (shortness of breath) Transaminitis Pneumonia Sarcoidosis Surgical History History of lung surgery History of breast biopsy Hx of abdominoplasty History of laparoscopic adjustable gastric banding History of tubal ligation History of section History of hysterectomy History of cholecystectomy Family History Father Cardiovascular disease Mother Cardiovascular disease Hypertension Thyroid condition Daughter Thyroid condition Rheumatoid arthritis Sister Thyroid condition Brother Rheumatoid arthritis Social History Housing: House Alcohol intake: current Alcohol intake frequency: holidays/special occasions only Patient Tobacco Use Status: Former Tobacco user Tobacco use type: Cigarette Years Smoked: 15 years quit about 20 years ago e-Cigarette/Vaping Use: Never Used Second Hand Smoke Exposure: Yes service: No Current occupational status: unemployed Current occupation: rt handed Cognitive needs: No Hearing needs: No Vision needs: Yes Review of Systems Const Denies chills, Denies headache(s) and Denies weight loss ENT Denies headache(s) Card Reports chest pain, Denies syncope, Denies irregular heart rhythm and Denies dyspnea Resp Denies chest congestion, Denies cough, Reports pain on inspiration, Reports pain with cough and Denies dyspnea GI Denies abdominal pain, Denies change in stool character, Denies nausea and Denies vomiting Musc Denies deformity and Denies joint swelling Neuro Denies syncope and Denies headache(s) Physical Exam Vital Signs: Last Vital Signs Pulse 77 11/13/22 14:27 Pulse Ox 99 11/13/22 14:27 Oxygen Delivery Method Room Air 11/13/22 14:27 BMI result Body Mass Index 39.3 Const General: comfortable and alert HEENT Head: Yes normal to inspection Ears: TM abnormal with fluid behind the TM (minimal) bilateral General nose exam: Abnormal mucous membranes and turbinates present erythematous Face and sinus: Yes sinus tenderness and Yes Facial tenderness on exam of face and sinuses Throat: Yes postnasal drainage and Yes cobblestoning Neck Neck: Yes normal visual inspection, Yes full ROM and Yes no lymphadenopathy Chest Chest palpation & inspection: normal inspection of the chest Resp Auscultation: diminished lung sounds Cardio Rate: regular rate Rhythm: regular rhythm Heart sounds: S1 normal heart sound present and S2 normal heart sound present GI Palpation (GI): Soft to palpation and nontender Auscultation: normal bowel sounds Skin General skin exam: rashes and/or lesions noted Assessment & Plan Assessment & Plan (1) Lung mass: Comment: Surgical biopsy with a combination of granulomas, organizing pneumonia and lipid aspiration Code(s): R91.8 - Other nonspecific abnormal finding of lung field (2) ILD (interstitial lung disease): Code(s): J84.9 - Interstitial pulmonary disease, unspecified (3) Seropositive rheumatoid arthritis: Code(s): M05.9 - Rheumatoid arthritis with rheumatoid factor, unspecified (4) Sarcoidosis: Comment: Sarcoid like reaction secondary auto-immune disease versus a medication reaction while taking the TNF inhibitor Code(s): D86.9 - Sarcoidosis, unspecified (5) Chest pain: Code(s): R07.9 - Chest pain, unspecified Qualifiers: Chest pain type: intercostal pain Qualified Code(s): R07.82 - Intercostal pain Plan Pain control: Lidoderm patch, percocet PPI reflux diet Lunesta as needed for sleep start Prednisone 20mg, then taper once on Orencia Awaiting Orencia F/U with Rheumatology repeat CT chest 3 months Follow-up in 3 months Orders: Orders CT chest wo IV con 3 Months R91.8 - Other nonspecific abnormal finding of lung field Medications: New oxycodone-acetaminophen 5-325 mg (Percocet) Partial Fill upon patient request. 1 tab PO Q8H PRN 30 tabs 0RF pain 10 days R91.8 - Other nonspecific abnormal finding of lung field prednisone 20 mg (2 x 10 mg) PO DAILY 60 tabs 3RF 30 days R91.8 - Other nonspecific abnormal finding of lung field Coding Level of Care Code Est Pt Level 5 (68378) Diagnoses Lung mass R91.8 ILD (interstitial lung disease) J84.9 Seropositive rheumatoid arthritis M05.9 Sarcoidosis D86.9 Intercostal pain R07.82 Chest pain type: intercostal pain Time Spent (min) 60
[2022-11-13 14:27] VITALS: PULSE 77; O2SAT 99; BMI 39.3
== END 2022-11-13 15:09 | disposition home or self-care (01) ==
PROVIDERS: PCP Nurse Practitioner Family; Visit Provider Hospitalist
DX: R91.8 Other nonspecific abnormal finding of lung field (principal); J84.9 Interstitial pulmonary disease, unspecified; D86.9 Sarcoidosis, unspecified; M05.9 Rheumatoid arthritis with rheumatoid factor, unspecified; R07.82 Intercostal pain
CPT/HCPCS: 99215

== ENCOUNTER → 2022-11-13 14:21 | Outpatient (BNVA) | payer BC, SELFPAY | PROVIDERS: PCP Nurse Practitioner Family; Visit Provider Hospitalist | DX: R91.8 Other nonspecific abnormal finding of lung field (principal); M35.1 Other overlap syndromes; B02.29 Other postherpetic nervous system involvement ==

== ENCOUNTER 2022-11-22 12:23 | Outpatient (AMB) | payer BC, SELFPAY ==
--- NOTE | 2022-11-22 12:22 | A.OFFVIS_ITS ---
Intake Vital Signs 11/22/22 12:27 Height 5 ft 2 in Weight 209 lb 10.3 oz BMI 38.3 Blood Pressure Location Lt brachial Intake Visit Reasons: s/p colon- [place] Intake Note: Marisabel presents in the office as a follow up colonoscopy. CC: She states that she is not having any concerns - she states that she knows there was polyps. Allergies levofloxacin Allergy (Severe, Verified 12/18/22 14:08) hives HPI s/p colon- [place] HPI Details Assessment & Plan (1) Irritable bowel syndrome with both c onstipation and diarrhea: ?Code(s): K58.2 - Mixed irritable bowel syndrome ?Plan: The creon stopped her diarrhea, but now she is constipated. She asks if she should re start the Amitiza, but I think we will reduce the dose. She has failed all OTCs in the past. She uses a lot of fiber. She continues on her simethicone, but her insurance has not covered her omeprazole ([employer] does not like PPIs), so I will try sending famotidine. I educate her that they may need to buy it OTC. I will try prescribing Amitiza at the 8 micro g dose 2 tabs twice a day to bring her to a dose that is more in the middle of what she has tried in the past. They have not heard yet to schedule the colonoscopy. ROV 4 weeks. (2) GERD (gastroesophageal reflux diseas e): ?Code(s): K21.9 - Gastro-esophageal reflux disease without esophagitis ? ? ? Medications: New lubiprostone (Ruddy ruba) 16 mcg (2 x 8 mcg) PO BID 120 caps 3 RF K58.2 - Mixed irri table bowel syndro me ? famotidine (Pepcid ) 40 mg? PO BEDTIME 30 tabs 6RF ? ? On Hold omeprazole ?? Hold Comment:? insuran ce not covering 40 mg? PO DAILY 90 days 90 caps 1RF A ? ? COLONOSCOPY 11/09/22 Findings: Terminal Ileum: Not evaluated Cecum: Normal Ascending Colon: Normal Transverse Colon: Normal Descending Colon: A 10 -12 mm sessile polyp - removed with a cold snare Sigmoid Colon: Moderate diverticulosis Rectum: A 10 mm sessile polyp - removed with cold snare Ano-rectum: Normal Colon preparation: Good Impression and Post Procedure Diagnosis: Colonoscopy Findings: Two medium sized polyps removed Random biopsies were obtained from right and left colon to check for microscopic colitis Moderate diverticulosis seen in the sigmoid colon Plan: Await pathology results Patient has an appointment on 11/22/22 in the [facility] with Arianna Arthur NP. Repeat Colonoscopy interval based on path results - in 3-5 years if polyps are adenomatous and 10 years if polyps are hyperplastic. BIOPSY Received: 11/09/22 Diagnosis A. Colon, random right, biopsy: Colonic mucosa within normal limits; negative for active, chronic or microscopic colitis. B. Colon, descending, polypectomy: Tubular adenoma; negative for high-grade dysplasia. C. Colon, left, biopsy: Colonic mucosa within normal limits; negative for active, chronic or microscopic colitis. D. Rectum, polypectomy: Tubular adenoma; negative for high-grade dysplasia. TODAY'S VISIT The procedure needs to be repeated in 3 years r/t the size of the polyps. The procedure was well tolerated. The results were explained and the patient is agreeable to the follow-up interval as stated. She was a bit constipated after the procedure but she is utilizing her Amitiza and she does not feel she needs any extra help. Education was provided to tell any 1st degree relatives about their findings to be sure that they are screened by age 45. Educated that they will be put on a recall list when it is time for their repeat scope but should they move out of state or away from the hospital they will need to remember along with their primary to repeat the procedure in a timely fashion to avoid any adverse complications. She continues on her omeprazole and her famotidine with good control of her GERD. Her Amitiza is 16 mcg b.i.d.. ROV 6 mos. PFSH Medical History Cervical mass Hot flashes Low libido BRCA gene positive Chronic idiopathic constipation Post herpetic neuralgia Pleuritic chest pain Multinodular thyroid Mixed connective tissue disease [id number] syndrome COVID-19 Lump of left thigh ÁNGELA (obstructive sleep apnea) Chest pain RUQ pain Thyroid nodule Lymphadenopathy Insomnia ILD (interstitial lung disease) Sarcoidosis Lung mass Dizziness SOB (shortness of breath) Transaminitis Pneumonia Sarcoidosis Surgical History History of lung surgery History of breast biopsy Hx of abdominoplasty History of laparoscopic adjustable gastric banding History of tubal ligation History of section History of hysterectomy History of cholecystectomy Family History Father Cardiovascular disease Mother Cardiovascular disease Hypertension Thyroid condition Daughter Thyroid condition Rheumatoid arthritis Sister Thyroid condition Brother Rheumatoid arthritis Social History Housing: House Alcohol intake: current Alcohol intake frequency: holidays/special occasions only Patient Tobacco Use Status: Former Tobacco user Tobacco use type: Cigarette Years Smoked: 15 years quit about 20 years ago e-Cigarette/Vaping Use: Never Used Second Hand Smoke Exposure: Yes service: No Current occupational status: unemployed Current occupation: rt handed Cognitive needs: No Hearing needs: No Vision needs: Yes Review of Systems Const Denies fatigue, Denies fever(s), Denies night sweats, Denies poor appetite and Denies weight loss Eyes Details: glasses Reports requires corrective lenses ENT Reports Normal hearing present, Denies dental pain, Denies dysphagia, Denies hearing loss, Denies mouth pain, Denies odynophagia, Denies throat swelling, Denies tongue swelling and Reports other (Dentition adequate) Card Reports no additional complaints Resp Reports no additional complaints GI Denies abdominal pain, Denies melena, Denies bloating, Denies hematochezia, Reports constipation, Denies GI cramping, Denies dysphagia, Denies excessive flatus, Denies early satiety, Reports heartburn, Denies diarrhea, Denies nausea, Denies odynophagia, Denies vomiting and Denies hematemesis Skin/Breast Denies pruritus, Denies lesions, Denies rash and Denies jaundice Neuro Reports Normal hearing present and Denies Abnormal speech present Endo Denies fatigue Aller/Immun Denies throat swelling and Denies tongue swelling Physical Exam Vital Signs: BMI result Body Mass Index 38.3 Const General: cooperative, no acute distress, well developed and well groomed Nutritional Appearance: well nourished and obese morbidly obese Orientation/consciousness: oriented to person, oriented to place and oriented to time Limitations: No language barrier HEENT Head: Yes normocephalic and Yes atraumatic Eyes General: appearance normal, both eyes and all related structures Pupils: Equal, round and reactive pupils present Neck Neck: Yes normal visual inspection and Yes no lymphadenopathy Thyroid: Thyroid normal Resp Effort & Inspection: normal respiratory effort and able to speak in complete sentences Auscultation: clear to auscultation bilaterally Cardio Rate: regular rate Rhythm: regular rhythm Heart sounds: Normal, physiologic split S2 sound present Peripheral pulses: radial pulses present and posterior tibial pulses present GI Inspection: No distended, Yes Abdominal panniculus present and Yes obesity Palpation (GI): Soft to palpation, nontender, no guarding, not rigid and No hepatosplenomegaly present Percussion: Yes normal to percussion Auscultation: normal bowel sounds Rectal Exam - Female: deferred Skin General skin exam: no rashes or lesions noted, turgor normal, skin not dry, no jaundice, No spider nevi and no striae Rashes: no rashes Nails: normal Neuro General: oriented to person, oriented to place and oriented to time Cranial nerves: Yes Equal, round and reactive pupils present and Yes Normal hearing present Speech: No Abnormal speech present Extrem General: Yes normal to inspection, No clubbing, No cyanosis and No edema Psych Appearance: grossly normal and well kempt Mental Status: mental status grossly normal Speech and movement: Normal speech and movement present Affect: normal affect Attitude: cooperative Thought process: Normal thought process present and not confabulating Thought content: Normal thought content present Insight: Limited insight present (Psych) Judgement: Limited judgement present (Psych) Assessment & Plan Assessment & Plan (1) Tubular adenoma of colon: Comment: 2022=Large TA's repeat 3 years Code(s): D12.6 - Benign neoplasm of colon, unspecified Plan: The procedure needs to be repeated in 3 years r/t the size of the polyps. The procedure was well tolerated. The results were explained and the patient is agreeable to the follow-up interval as stated. She was a bit constipated after the procedure but she is utilizing her Amitiza and she does not feel she needs any extra help. Education was provided to tell any 1st degree relatives about their findings to be sure that they are screened by age 45. Educated that they will be put on a recall list when it is time for their repeat scope but should they move out of state or away from the hospital they will need to remember along with their primary to repeat the procedure in a timely fashion to avoid any adverse complications. She continues on her omeprazole and her famotidine with good control of her GERD. Her Amitiza is 16 mcg b.i.d.. ROV 6 mos. (2) GERD (gastroesophageal reflux disease): Code(s): K21.9 - Gastro-esophageal reflux disease without esophagitis (3) Irritable bowel syndrome with both constipation and diarrhea: Code(s): K58.2 - Mixed irritable bowel syndrome Coding Level of Care Code Est Pt Level 3 (56086) Diagnoses Tubular adenoma of colon D12.6 GERD (gastroesophageal reflux disease) K21.9 Irritable bowel syndrome with both constipation and diarrhea K58.2
[2022-11-22 12:27] VITALS: BMI 38.3
== END 2022-11-22 12:47 | disposition home or self-care (01) ==
LOC: HO.HGI 12:23
PROVIDERS: PCP Nurse Practitioner Family; Visit Provider Nurse Practitioner
DX: D12.6 Benign neoplasm of colon, unspecified (principal); K21.9 Gastro-esophageal reflux disease without esophagitis; K58.2 Mixed irritable bowel syndrome
CPT/HCPCS: 99213

== ENCOUNTER → 2022-11-22 12:23 | Outpatient (BNVA) | payer BC, SELFPAY | PROVIDERS: PCP Nurse Practitioner Family; Visit Provider Nurse Practitioner ==

== ENCOUNTER 2022-12-18 13:46 | Outpatient (AMB) | payer BC, SELFPAY ==
--- NOTE | 2022-12-18 14:04 | MHC.OFFVIS ---
Intake Vital Signs 12/18/22 14:07 Height 5 ft 2 in Weight 209 lb 7.026 oz BMI 38.3 BP 122/74 Intake Visit Reasons: Cervical mass Pie Baker Required: No Information Interpreted: non-clinical & clinical Principal Process Engineer: Principal Process Engineer Present (Damaris RAYGOZA) Accompanied by: Self / Same As Patient Allergies levofloxacin Allergy (Severe, Verified 12/18/22 14:08) hives Post menopausal: Yes HPI HPI Comments History of Present Illness Details Presenting referred from Rylee Cedeño CNM regarding cervical mass seen on pelvic exam in 10/24. No complaints no vaginal bleeding or pelvic pain. Last co testing was done in 10/24 was negative PFSH Medical History Cervical mass Hot flashes Low libido BRCA gene positive Chronic idiopathic constipation Post herpetic neuralgia Pleuritic chest pain Multinodular thyroid Mixed connective tissue disease [id number] syndrome COVID-19 Lump of left thigh ÁNGELA (obstructive sleep apnea) Chest pain RUQ pain Thyroid nodule Lymphadenopathy Insomnia ILD (interstitial lung disease) Sarcoidosis Lung mass Dizziness SOB (shortness of breath) Transaminitis Pneumonia Sarcoidosis Surgical History History of lung surgery History of breast biopsy Hx of abdominoplasty History of laparoscopic adjustable gastric banding History of tubal ligation History of section History of hysterectomy History of cholecystectomy Family History Father Cardiovascular disease Mother Cardiovascular disease Hypertension Thyroid condition Daughter Thyroid condition Rheumatoid arthritis Sister Thyroid condition Brother Rheumatoid arthritis Social History Housing: House Alcohol intake: current Alcohol intake frequency: holidays/special occasions only Patient Tobacco Use Status: Former Tobacco user Tobacco use type: Cigarette Years Smoked: 15 years quit about 20 years ago e-Cigarette/Vaping Use: Never Used Second Hand Smoke Exposure: Yes service: No Current occupational status: unemployed Current occupation: rt handed Cognitive needs: No Hearing needs: No Vision needs: Yes Physical Exam Vital Signs: Last Vital Signs BP 122/74 12/18/22 14:07 BMI result Body Mass Index 38.3 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 The patient tolerated well . At the end the patient was instructed to call if temp>100.4, abdominal pain, n/v, bleeding; The patient was given the following instructions: nothing per vagina, no intercourse or bath tub use. All questions answered the patient verbalized understanding. Instructed the patient to make an appointment in 2 weeks for follow-up This note was generated with a voice recognition program. Some errors may have been overlooked during the review of this note. Sometimes these errors may affect the content or meaning of a given sentence. [id number] of Cervix Procedure code (CPT) selection complete Assessment & Plan Assessment & Plan (1) Cervical mass: Code(s): N88.8 - Other specified noninflammatory disorders of cervix uteri Plan: Discussed with the patient the finding on pelvic exam showing a cervical lesion, recommended cervical lesion biopsy, the patient agreed, see procedure note. Will check the results and treat accordingly. 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
[2022-12-18 14:07] VITALS: BP 122/74; BMI 38.3
== END 2022-12-18 15:31 | disposition home or self-care (01) ==
PROVIDERS: PCP Nurse Practitioner Family; Visit Provider Obstetrics & Gynecology
DX: N84.1 Polyp of cervix uteri (principal)
CPT/HCPCS: 57500

== ENCOUNTER 2022-12-18 13:46 | Outpatient (REF) | payer BC, SELFPAY | END 2022-12-18 13:47 | disposition home or self-care (01) | LOC: HO.LNP 13:46 | PROVIDERS: PCP Nurse Practitioner Family; Visit Provider Obstetrics & Gynecology | DX: N88.8 Other specified noninflammatory disorders of cervix uteri (principal) | CPT/HCPCS: 57500; 88305 ==

== ENCOUNTER 2023-01-04 14:31 | Outpatient (AMB) | payer BC, SELFPAY ==
[2023-01-04 14:43] VITALS: BP 126/84; PULSE 69; TEMP 36.3; O2SAT 97; BMI 39.1
--- NOTE | 2023-01-04 14:43 | A.OFFVIS_ITS ---
Intake Vital Signs 01/04/23 14:43 Height 5 ft 2 in Weight 213 lb 13.574 oz BMI 39.1 BP 126/84 Blood Pressure Location Rt brachial Position Sitting Pulse 69 Pulse Source Pulse Oximeter Temp 97.3 F Temp Source Skin Pulse Oximetry (%) 97 Intake Visit Reasons: 3 Month follow up Intake Note: Pt last seen 06/06/22, presents today for follow up. At last visit she was started on Orencia and referred to pain mgmt.. 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 Pumping Required: No Accompanied by: Self / Same As Patient Allergies levofloxacin Allergy (Severe, Verified 01/04/23 14:45) hives Medication List - Last Reconciled 01/04/23 by Wang Del Toro MD albuterol sulfate 90 mcg/actuation 2 puffs PO Q6H PRN albuterol sulfate 2.5 mg (3 mL) inhalation Q6H PRN biotin 5 mg PO DAILY budesonide 0.5 mg (2 mL) inhalation BID budesonide-formoterol 160-4.5 mcg/actuation 2 puffs PO BID cholecalciferol (vitamin D3) 125 mcg PO DAILY diclofenac sodium 1% (Arthritis Pain (diclofenac)) 4 grams topical QID duloxetine 30 mg PO DAILY 30 days eszopiclone (Lunesta) 1 mg PO BEDTIME 90 days famotidine (Pepcid) 40 mg PO BEDTIME folic acid 1 mg PO DAILY 90 days gabapentin 600 mg PO BEDTIME PRN lidocaine 5% (Lidoderm) 1 patch topical DAILY 30 days rdfbaw-xmgsckac-baxeosv 36,000-114,000- 180,000 unit (Creon) 1 cap PO QID lubiprostone 16 mcg (2 x 8 mcg) PO BID meclizine 25 mg PO TID-QID mecobalamin (vitamin B12) 1,000 mcg sublingual DAILY nebulizers As directed omeprazole 40 mg PO DAILY 90 days oxycodone 5 mg PO Q8H PRN 10 days oxycodone-acetaminophen 5-325 mg (Percocet) 1 tab PO Q8H PRN 10 days prednisone 20 mg (2 x 10 mg) PO DAILY 30 days simethicone 180 mg PO QID 30 days HPI HPI Comments History of Present Illness Details 52-year-old female with seropositive RA returns for follow-up. Last visit the plan was to start Orencia. It was approved. Patient stated that she did not receive a call about the medication. She did not start Orencia yet. Two months ago she was evaluated by Dr. Briggs, she was having worsening chest pain. A repeat CT chest showed interval increase in her lung mass. She was started on prednisone 20 mg daily with some improvement. She continues to have diffuse pain in her hands, knees, ankles Initial history: 51yoF with a history of seropositive RA (RF+++ CCP+++) [facility] Was last seen by Dr. Conner in 2020. RA was diagnosed in 2014 she was treated by Dr. Carr. She had been on numerous DMARDs including methotrexate, sulfasalazine, Humira, CellCept. She has also been on varying doses of prednisone. In 2018 she had in navigation bronchoscopy with biopsy which showed some findings suspicious for sarcoidcosis. She had another wedge resection biopsy which showed organizing pneumonia, non necrotizing granulomas. She had a cardiac PET scan ordered by Dr. Briggs after a cardiac event in 2020 which did not show features of cardiac sarcoidosis. She was evaluated by Dr. Ricks in [place] and the overall assessment was she does not have classic sarcoidosis. Patient states she was doing relatively well since her open lung biopsy in 2020 until she got COVID about 5 months ago.? Since then patient has been having worsening shortness of breath, chest pain and diffuse pain.? She has pain everywhere.? She has pain in her joints as well as her muscles.? She has morning stiffness of her joints lasting at least 1 hour every day.? She is no longer on prednisone.? She was prescribed hydroxychloroquine [address] Briggs 2 months ago with equivocal benefit. She states that recently she has been anxious and thinking about many things. States that this has affected her memory. She has difficulty falling and staying asleep [facility] Medical History Cervical mass Hot flashes Low libido BRCA gene positive Chronic idiopathic constipation Post herpetic neuralgia Pleuritic chest pain Multinodular thyroid Mixed connective tissue disease [id number] syndrome COVID-19 Lump of left thigh ÁNGELA (obstructive sleep apnea) Chest pain RUQ pain Thyroid nodule Lymphadenopathy Insomnia ILD (interstitial lung disease) Sarcoidosis Lung mass Dizziness SOB (shortness of breath) Transaminitis Pneumonia Sarcoidosis Surgical History History of lung surgery History of breast biopsy Hx of abdominoplasty History of laparoscopic adjustable gastric banding History of tubal ligation History of section History of hysterectomy History of cholecystectomy Family History Father Cardiovascular disease Mother Cardiovascular disease Hypertension Thyroid condition Daughter Thyroid condition Rheumatoid arthritis Sister Thyroid condition Brother Rheumatoid arthritis Social History Housing: House Alcohol intake: current Alcohol intake frequency: holidays/special occasions only Patient Tobacco Use Status: Former Tobacco user Tobacco use type: Cigarette Years Smoked: 15 years quit about 20 years ago e-Cigarette/Vaping Use: Never Used Second Hand Smoke Exposure: Yes service: No Current occupational status: unemployed Current occupation: rt handed Cognitive needs: No Hearing needs: No Vision needs: Yes Review of Systems Card Reports chest pain Musc Reports back pain, Reports arthralgias and Reports joint swelling Physical Exam Vital Signs: Last Vital Signs Temp 97.3 F 01/04/23 14:43 Pulse 69 01/04/23 14:43 BP 126/84 01/04/23 14:43 Pulse Ox 97 01/04/23 14:43 BMI result Body Mass Index 39.1 Const General: cooperative and healthy appearing Nutritional Appearance: obese morbidly obese Orientation/consciousness: patient oriented x3 (Oriented x4) Limitations: no limitations HEENT Head: Yes normocephalic and Yes atraumatic Mouth: moist mucous membranes Resp Effort & Inspection: normal respiratory effort and able to speak in complete sentences Cardio Rate: regular rate Rhythm: regular rhythm Heart sounds: S1 normal heart sound present and S2 normal heart sound present GI Inspection: No distended Palpation (GI): Soft to palpation and nontender Skin General skin exam: no rashes or lesions noted Neuro General: patient oriented x3 (Oriented x4) Extrem Other: Bilateral tender wrists and tenderness with full flexion and extension Z deformity of both thumbs Bilateral diffuse MCP tenderness, PIP tenderness and DIP tenderness Bilateral knee pain with full flexion extension Bilateral ankle tenderness at the medial malleolus Diffuse fibromyalgia tender points Normal nailfold capillaroscopy Results Reviewed Results Reviewed: Open lung biopsy in [address]. Per [address] Briggs note: All the biopsies demonstrated organizing pneumonia, non-necrotizing granulomas in addition to his lipid deposits.? However distribution does not suggest aspiration but if not inhalation.? The patient has never great.? 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 and is likely that some of the lip inhalation has been from the patient.? My suspicion is that the findings of the biopsy MO consistent with an inflammatory process due to her connective tissue and is not due to sarcoidosis 12/26/2018 Pathology A.lung, right upper lobe mass core for tumor: Benign lung parenchyma with nonnecrotizing granulomas and chronic inflammation. Special stains GMS: Negative for fungal organisms. AFB: Negative for acid-fast bacilli, Elastic: Negative for vasculitis control stains appropriately. Note: Differential diagnosis may include: Sarcoidosis, infection, and autoimmune process. Please clinically correlate if the material is automotive sales representative of the area of interest. B. Lung, right middle lobe mass core for tumor: Nondiagnostic. Predominantly blood and scant benign lung epithelium. Immunohistochemistry: TTF-1: Highlights th to scant strips of lung epithelium. CD 68: Negative. Control stains appropriately. 12/26/2018 FNA cytology A. Lung, right upper lobe, fine-needle aspiration: Cytology and cell block: Negative for malignant cells benign alveolar tissue with granulomatous inflammation and fibrosis. Histochemical stains: Acid-fast: Negative for Mycobacterium. GMS: Negative for fungi. PAS?F: Negative for fungi. Controls: Appropriate. B.lung, right middle lobe, fine-needle aspiration: Cytology and cell block: Negative for malignant cells. Benign alveolar tissue with granulomatous inflammation and fibrosis. Histochemical stains: Acid-fast: Negative for Mycobacterium. GMS: Negative for fungi. PAS?F: Negative for fungi. Controls are: Appropriate. 12/26/2018 cytopathology report bronchial washings A. Lung, right upper lobe, bronchial washings: Cytology and cellblock: Negative for malignant cells granulomatous and chronic inflammation. See supplemental report for results of stains for microorganisms. Mycobacterial stains: Immune histology and Ziehl-Neelsen negative. GMS stain negative for fungi B. Lung, right middle lobe, bronchial washings: Cytology and cell block: Negative for blood and cells. Chronic inflammation. See [id number] and [id number]. Assessment & Plan Assessment & Plan (1) Seropositive rheumatoid arthritis: Comment: +++RF+++CCP Onset early 2014. SSZ started 12/15 - stopped due diarrhea MTX taken briefly 2015- May 2015? MTX restarted 07/18- changed to SC Dec 2016 due to nausea Humira added 02/18 to methotrexate. Both stopped 04/22 due to infection. Humira was suspected to have caused lung issues (?drug induced sarcoid) MTX and Humira remained held 03/23 04/23: Cellcept started by pulmonary - GI side effects, confusion so it was stopped 07/21 methotrexate and Humira restarted stopped sometime in 2020 Imuran briefly, not sure what happened with that 2020 Orencia attempted got denied. Approved 07/2022 not started yet Code(s): M05.9 - Rheumatoid arthritis with rheumatoid factor, unspecified Plan: 52-year-old female with seropositive RA returns for follow-up after completion of her diagnostic workup. There has been a question of sarcoidosis. In 2018 she had in navigation bronchoscopy with biopsy which showed some findings suspicious for sarcoidosis.? In 2020, She had wedge resection biopsy which showed organizing pneumonia, non necrotizing granulomas.? She had a cardiac PET scan in 2020 which did not show features of cardiac sarcoidosis.? She was evaluated by Dr. Ricks in [place] and the overall assessment was she does not have classic sarcoidosis. At this point seropositive RA seems to be a unifying diagnosis for her inflammatory arthritis, ILD. Her most recent CT chest showed enlargement of her lung mass. She was started on prednisone by Pulmonary with some symptomatic improvement. Orencia was approved but patient did not start it yet. Start Orencia 125 mg once weekly. Follow-up in 3 months. If patient's inflammatory arthritis and lung past to not improve on Orencia, we can consider rituximab Labs before next visit in 3 months Plan I spent 25 minutes reviewing patient's chart, evaluating patient, ordering diagnostic workup, counseling patient and documenting in the chart Orders: Orders Complete Blood Count Auto Diff 3 Months M05.9 - Rheumatoid arthritis with rheumatoid factor, unspecified C Reactive Protein 3 Months M05.9 - Rheumatoid arthritis with rheumatoid factor, unspecified Comprehensive Met. Panel 3 Months M05.9 - Rheumatoid arthritis with rheumatoid factor, unspecified Erythrocyte Sedimentation Rate 3 Months M05.9 - Rheumatoid arthritis with rheumatoid factor, unspecified Coding Level of Care Code Est Pt Level 4 (42660) Diagnoses Seropositive rheumatoid arthritis M05.9
== END 2023-01-04 15:10 | disposition home or self-care (01) ==
PROVIDERS: PCP Nurse Practitioner Family; Visit Provider Student in an Organized Health Care Education/Training Program
DX: M05.79 Rheumatoid arthritis with rheumatoid factor of multiple sites without organ or systems involvement (principal)
CPT/HCPCS: 99214

== ENCOUNTER → 2023-01-04 14:31 | Outpatient (BNVA) | payer BC, SELFPAY | PROVIDERS: PCP Nurse Practitioner Family; Visit Provider Student in an Organized Health Care Education/Training Program ==

== ENCOUNTER 2023-01-09 08:40 | Outpatient (AMB) | payer BC, SELFPAY ==
[2023-01-09 08:49] VITALS: BP 124/80; BMI 39.0
--- NOTE | 2023-01-09 08:49 | A.OFFVIS_ITS ---
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 The pathology showed the following: Cervical mass, biopsy: Polypoid squamous and endocervical glandular mucosa with marked acute chronic inflammation; negative for granulomas, dysplasia and carcinoma (see comment). Comment: The 0.35 cm tissue may not be sales representative aircraft of the clinically described 2 cm mass. If clinical suspicion is high; re-biopsy is warranted [facility] Medical History Cervical mass Hot flashes Low libido BRCA gene positive Chronic idiopathic constipation Post herpetic neuralgia Pleuritic chest pain Multinodular thyroid Mixed connective tissue disease [id number] syndrome COVID-19 Lump of left thigh ÁNGELA (obstructive sleep apnea) Chest pain RUQ pain Thyroid nodule Lymphadenopathy Insomnia ILD (interstitial lung disease) Sarcoidosis Lung mass Dizziness SOB (shortness of breath) Transaminitis Pneumonia Sarcoidosis Surgical History History of lung surgery History of breast biopsy Hx of abdominoplasty History of laparoscopic adjustable gastric banding History of tubal ligation History of section History of hysterectomy History of cholecystectomy Family History Father Cardiovascular disease Mother Cardiovascular disease Hypertension Thyroid condition Daughter Thyroid condition Rheumatoid arthritis Sister Thyroid condition Brother Rheumatoid arthritis Social History Housing: House Alcohol intake: current Alcohol intake frequency: holidays/special occasions only Patient Tobacco Use Status: Former Tobacco user Tobacco use type: Cigarette Years Smoked: 15 years quit about 20 years ago e-Cigarette/Vaping Use: Never Used Second Hand Smoke Exposure: Yes service: No Current occupational status: unemployed Current occupation: rt handed Cognitive needs: No Hearing needs: No Vision needs: Yes Female Reproductive History Menstrual Date of last menstrual period: 12/31/19 control method: permanent sterilization Total pregnancies: 2 Full term: 2 Date of last pap smear: 10/31/22 (negative) Review of Systems Card Reports as per HPI and Reports no additional complaints Resp Reports as per HPI and Reports no additional complaints GI Reports as per HPI and Reports no additional complaints Reports as per HPI Physical Exam Vital Signs: Last Vital Signs BP 124/80 01/09/23 08:49 BMI result Body Mass Index 39.0 Const General: cooperative, healthy appearing and comfortable Chest Chest palpation & inspection: normal inspection of the chest and normal palpation of entire chest wall Breast/axilla inspection: normal inspection of the breasts and normal inspection of the axillae Breast/axilla palpation: normal palpation of the breasts, normal palpation of the axillae and no axillary lymphadenopathy Resp Effort & Inspection: normal respiratory effort Auscultation: clear to auscultation bilaterally Percussion: percussion normal Cardio Palpation: normal PMI Rate: regular rate Rhythm: regular rhythm Heart sounds: no murmurs and no rubs Peripheral pulses: Peripheral pulses 2+ throughout GI Inspection: Yes normal to inspection Palpation (GI): Soft to palpation, nontender, no guarding, not rigid and No hepatosplenomegaly present Percussion: Yes normal to percussion Auscultation: normal bowel sounds Rectal Exam - Female: deferred Assessment & Plan Assessment & Plan (1) Cervical mass: Code(s): N88.8 - Other specified noninflammatory disorders of cervix uteri Plan: Discussed the patient the results the pathology, recommended excision of the cervical mass. Discussed with the patient the procedure, its benefits and risks including bleeding, infection, possible need for blood transfusion with all its risk the pt declined any blood products under any clinical situation including life threatening conditons, possible injury to bladder, rectum, possible re-excision for positive margins, potential need for hysterectomy, possible positive margin in case of dysplasia/carcinoma necessitating re-excision for an additional procedure. Also discussed the patient options of anesthesia either paracervical block versus IV sedation/MAC, prefers to proceed with IV sedation/MAC. All questions answered, the patient verbalized understanding and signed the consent. Coding Level of Care Code Est Pt Level 3 (86000) Diagnoses Cervical mass N88.8
== END 2023-01-09 09:56 | disposition home or self-care (01) ==
LOC: HO.HWS 08:40
PROVIDERS: PCP Nurse Practitioner Family; Visit Provider Obstetrics & Gynecology
DX: N88.8 Other specified noninflammatory disorders of cervix uteri (principal)
CPT/HCPCS: 99213

== ENCOUNTER → 2023-01-09 08:40 | Outpatient (BNVA) | payer BC, SELFPAY | PROVIDERS: PCP Nurse Practitioner Family; Visit Provider Obstetrics & Gynecology ==

== ENCOUNTER 2023-01-30 15:31 | Outpatient (REF) | payer BC, SELFPAY ==
--- NOTE | ~2023-01-30 | CT_ITS ---
EXAMINATION: CT CHEST WITHOUT CONTRAST CLINICAL INFORMATION: Status post right middle lobectomy. Follow-up increasing masslike density and ill-defined patchy adjacent opacities/nodules. COMPARISON: Previous CTs, most recent, 11/07/2022. TECHNIQUE: Multidetector volumetric CT imaging of the chest was done. Axial MIP volume rendering provided. Sagittal and coronal reformatted images were obtained. This CT examination was performed using dose optimization techniques as appropriate, variously including the following: *Automated exposure control *Adjustment of mA and/or kV according to patient size (this includes techniques or standardized protocols for targeted exams where dose is matched to indication/reason for exam; i.e. extremities or head) *Use of iterative reconstruction technique DLP: 174 mGy-cm FINDINGS: LAUNDERER HAND: Right hemithorax volume loss and right mid lung irregular opacity emanating from the right hilum. Cholecystectomy clips. LUNGS: Trachea and bronchi are patent. Patient is status post right middle lobectomy. On 11/07/2022, increasing mass like opacity in the right upper lung was seen. In comparison with that study, no significant change in 3.2 x 4.0 cm masslike opacity with irregular borders. Multiple satellite nodules are also stable. Stable 6 mm right lower lobe nodule, 5:259. No new or enlarging nodules seen. Interval development of 1.2 x 1.0 cm right lower lobe groundglass opacity, 5:296. MEDIASTINUM: No thyroid abnormality. No change 1.4 cm right paratracheal lymph node. Mild anterior mediastinal stranding again noted. Heart is not enlarged. No pericardial effusion. Nonaneurysmal aorta. Nonenlarged pulmonary arteries. CORONARY ARTERY CALCIFICATION: None visualized on this study. PLEURA: There is no pleural effusion. No pleural mass or thickening. Right perifissural lymph nodes again seen. AXILLA: No lymphadenopathy. UPPER ABDOMEN: Gastric anastomotic suture line. Postcholecystectomy. Again noted prominent spleen measuring 13.4 cm. OSSEOUS STRUCTURES: No suspicious osseous lesions. CT/CT chest wo IV con IMPRESSION: Stable masslike opacity right upper lobe with associated adjacent opacities/satellite lesions. (This had shown interval increase on 11/07/2022 study from previous post surgical examinations. At that time, PET/CT was recommended by knowledge has not been performed.) Interval development of 1.2 cm nonspecific right lower lobe groundglass opacity. [address] follow-up recommended. Stable right paratracheal lymph node. Fleischner guidelines were followed.
== END 2023-01-30 15:32 | disposition home or self-care (01) ==
LOC: HO.CT 15:31
PROVIDERS: PCP Nurse Practitioner Family; Visit Provider Hospitalist
DX: R91.8 Other nonspecific abnormal finding of lung field (principal)
CPT/HCPCS: 71250

== ENCOUNTER 2023-01-31 13:25 | Outpatient (AMB) | payer BC, SELFPAY ==
[2023-01-31 13:27] VITALS: BP 118/78; PULSE 69; O2SAT 97; BMI 39.2
--- NOTE | 2023-01-31 13:27 | MHC.PC.OV ---
Vital Signs 01/31/23 13:27 Height 5 ft 2 in Weight 214 lb 2 oz BMI 39.2 BP 118/78 Blood Pressure Location Lt brachial Position Sitting Pulse 69 Pulse Source Pulse Oximeter Pulse Oximetry (%) 97 Oxygen Delivery Method Room Air Intake Visit Reasons: concerned about right toe [facility] Director Required: No Accompanied by: Self / Same As Patient Allergies levofloxacin Allergy (Severe, Verified 02/01/23 08:14) hives Tobacco use date assessed: 06/19/22 Dental Screening Dental Screen Date: 01/31/23 Did you have a dental visit in the last 12 months?: Yes Did you have a dental problem in the last 6 months where you did not have access to dental care?: No Was dental information given to patient?: Patient has dentist HPI HPI Comments History of Present Illness Details 52-year-old female past medical history significant for GERD, IBS, obesity, fibromyalgia, ÁNGELA. Patient of Coral Sharma, patient presents today for right 4th toe pain. Patient reports that she was playing with her grandson in the house and that they have a small sized indoor trampoline on Saturday and states that she she for got the trampoline was there and that she kicked the metal leg of the trampoline with her foot injuring her right 4th toe. Patient reports increased pain and swelling. States she has been taking her previously prescribed oxycodone for pain with good effect. On exam patient noted to have pain with palpation to right 4th toe, edema and bruising noted to superior foot. 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 COVID-19 Lump of left thigh ÁNGELA (obstructive sleep apnea) Chest pain RUQ pain Thyroid nodule Lymphadenopathy Insomnia ILD (interstitial lung disease) Sarcoidosis Lung mass Dizziness SOB (shortness of breath) Transaminitis Pneumonia Sarcoidosis Surgical History History of lung surgery History of breast biopsy Hx of abdominoplasty History of laparoscopic adjustable gastric banding History of tubal ligation History of section History of hysterectomy History of cholecystectomy Family History Father Cardiovascular disease Mother Cardiovascular disease Hypertension Thyroid condition Daughter Thyroid condition Rheumatoid arthritis Sister Thyroid condition Brother Rheumatoid arthritis Social History Housing: House Alcohol intake: current Alcohol intake frequency: holidays/special occasions only Patient Tobacco Use Status: Former Tobacco user Quit Date: 20 yrs ago Tobacco use type: Cigarette Years Smoked: 15 years quit about 20 years ago e-Cigarette/Vaping Use: Never Used Second Hand Smoke Exposure: Yes Use of substances other than those prescribed or required for medical reasons: No Are you DNR?: No Advance Directives: No Advance Directives Information Provided: Yes service: No Current occupational status: unemployed Current occupation: rt handed Cognitive needs: No Hearing needs: No Vision needs: Yes Questionnaire Thrive Questionnaire Date Thrive assessed: 03/28/22 YENNI-7 AMB Questionnaire YENNI-7 Date YENNI - 7 assessed: 06/19/22 Source: Developed by Drs. Terence Diaz, Leila Hawk, Jani Osborn and colleagues, with an educational ashley from [employer]. Physical exam (Primary Care) Vital Signs: Last Vital Signs Pulse 69 01/31/23 13:27 BP 118/78 01/31/23 13:27 Pulse Ox 97 01/31/23 13:27 Oxygen Delivery Method Room Air 01/31/23 13:27 BMI result Body Mass Index 39.2 Tobacco/Smoking Status: Tobacco use Status Tobacco use date assessed 06/19/22 01/31/23 13:28 Patient Tobacco Use Status Former Tobacco user 01/31/23 13:28 Tobacco use type Cigarette 01/31/23 13:28 e-Cigarette/Vaping Use Never Used 01/31/23 13:28 Thrive Assessment: Date of Thrive Assessment Date Thrive assessed 03/28/22 01/31/23 13:28 Const General: cooperative and no acute distress Orientation/consciousness: patient oriented x3 HENMT Head: Yes normocephalic and Yes atraumatic Eyes Conjunctivae: conjunctivae normal Chest Chest palpation & inspection: normal inspection of the chest Resp Effort & Inspection: normal respiratory effort Auscultation: clear to auscultation bilaterally, no crackles, no rhonchi and no wheezes Cardio Rate: regular rate Rhythm: regular rhythm Heart sounds: S1 normal heart sound present and S2 normal heart sound present Peripheral pulses: dorsalis pedis present GI Inspection: Yes normal to inspection Neuro General: patient oriented x3 Extrem General: No edema Right lower extremity: normal to inspection, normal capillary refill and foot Details: normal capillary refill, abnormal ROM of toe (Right 4th toe) Details: pain with active ROM and pain with passive ROM, edema (Right 4th toe) and ecchymosis (Noted to superior dorsum aspect of foot surounding toes) Left lower extremity: normal to inspection and normal capillary refill Office Procedures Flu Questionnaire Does the patient have a severe egg allergy?: No Does the patient have severe life threatening allergies?: No Does the patient have a fever or illness today?: No Has the patient ever had Guillain-Sharon Syndrome?: No Has the patient ever had any past reaction to a flu shot?: No Immunizations flu vacc [id number] 6mos up(PF) 60 mcg(15 mcgx4)/0.5 mL IM syringe Performing Provider: KEO Marquez [facility] Administered by: IDALMIS Lucero on 01/31/23 13:43 Dose Route Admin Location Dispensed Lot Number Expiration Date NDC Support Engineer 0.5 mL IM Left Deltoid 0.5 mL [id number] 09/01/23 77407-555-14 [employer] VIS Given Date VIS Provided VIS Publication Date 01/31/23 Single Vaccine 20 Eligibility Eligibility Date Funding Source Not [facility] Eligible 01/31/23 Private Assessment and Plan Assessment & Plan (1) Toe pain, right: Code(s): M79.674 - Pain in right toe(s) Plan: Right foot x-ray ordered to rule out fracture. Patient educated on rice therapy. Patient advise can take [id number] ibuprofen as needed for inflammation in addition to previously prescribed oxycodone she is utilizing for pain. Plan Keep scheduled follow-up with PCP or follow-up sooner if needed Orders: Orders Influenza [id number] Immunization 01/31/23 Z23 - Encounter for immunization XR foot RT 2V 01/31/23 M79.671 - Pain in right foot, M79.674 - Pain in right toe(s) Coding Level of Care Code Est Pt Level 3 (07418) Diagnoses Toe pain, right M79.674
== END 2023-01-31 13:56 | disposition home or self-care (01) ==
PROVIDERS: PCP Nurse Practitioner Family; Visit Provider Nurse Practitioner Family
DX: Z23 Encounter for immunization (principal)
CPT/HCPCS: 90471; 90686; 99213

== ENCOUNTER 2023-01-31 14:21 | Outpatient (REF) | payer BC, SELFPAY ==
--- NOTE | ~2023-01-31 | XR_ITS ---
EXAMINATION: XR FOOT, RIGHT CLINICAL INFORMATION: Jammed right fourth toe COMPARISON: None available. TECHNIQUE: AP, lateral, and oblique views of the right foot. FINDINGS: There is a nondisplaced spiral fracture of the proximal phalanx of the right fourth toe. The fracture does not appear to extend to the proximal or distal articular surface. The remainder of the osseous and articular structures are intact. XR/XR foot RT 2V IMPRESSION: Nondisplaced spiral fracture of the proximal phalanx of the right fourth toe.
== END 2023-01-31 14:22 | disposition home or self-care (01) ==
LOC: HO.XRAY 14:21
PROVIDERS: Visit Provider Nurse Practitioner Family
DX: M79.671 Pain in right foot (principal); M79.674 Pain in right toe(s)
CPT/HCPCS: 73620

== ENCOUNTER 2023-02-01 07:21 | Day surgery (SDC) | payer BC, SELFPAY ==
[2023-01-16 12:57] VITALS: BMI 39.0
--- NOTE | 2023-01-30 15:15 | HO.ANESPROP2 ---
Documented by User: Barbara Ingram NP 01/30/23 15:16 HPI - Anesthesia Eval Consult details Narrative: 52yo F for Excision Cervical Mass (with LEEP machine) s/p colo 11/2022 with TIVA PMFSH Active Problems Active Problems: All Active Problems (Updated 01/04/23 @ 17:27 by Wnag Del Toro MD) Tubular adenoma of colon (Acute) Cervical mass (Acute) Hot flashes (Acute) Low libido (Acute) GERD (gastroesophageal reflux disease) (Acute) Irritable bowel syndrome with both constipation and diarrhea (Acute) Thoracic radiculitis (Acute) Pre-op examination (Acute) Intercostal neuralgia (Acute) Post herpetic neuralgia (Acute) Low vitamin D level (Acute) Obesity (BMI 30-39.9) (Acute) Adult general medical exam (Acute) Diarrhea (Acute) Screening for breast cancer (Acute) Cervical cancer screening (Acute) Screening for colon cancer (Acute) Bilateral primary osteoarthritis of knee (Acute) 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, unspecified (Acute) Fibromyalgia, primary (Acute) 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) Pleuritic chest pain (Acute) Multinodular thyroid (Acute) Mixed connective tissue disease (Acute) [id number] syndrome (Acute) Sinusitis (Acute) COVID-19 (Acute) Headache (Acute) Vertigo (Acute) ÁNGELA (obstructive sleep apnea) (Acute) Right ankle sprain (Acute) Ankle pain (Acute) Chest pain (Acute) RUQ pain (Acute) Thyroid nodule (Acute) Lymphadenopathy (Acute) Insomnia (Acute) ILD (interstitial lung disease) (Acute) Sarcoidosis (Acute) Seropositive rheumatoid arthritis (Acute) Lung mass (Acute) Bradycardia (Acute) Transaminitis (Acute) Pneumonia (Acute) Sarcoidosis (Acute) Past Medical History Medical History Cervical mass Hot flashes Low libido BRCA gene positive Chronic idiopathic constipation Post herpetic neuralgia Pleuritic chest pain Multinodular thyroid Mixed connective tissue disease [id number] syndrome COVID-19 Lump of left thigh ÁNGELA (obstructive sleep apnea) Chest pain RUQ pain Thyroid nodule Lymphadenopathy Insomnia ILD (interstitial lung disease) Sarcoidosis Lung mass Dizziness SOB (shortness of breath) Transaminitis Pneumonia Sarcoidosis Family History Family History Father Cardiovascular disease Mother Cardiovascular disease Hypertension Thyroid condition Daughter Thyroid condition Rheumatoid arthritis Sister Thyroid condition Brother Rheumatoid arthritis Family history of problems with anesthesia: No Surgical History Surgical History History of lung surgery History of breast biopsy Hx of abdominoplasty History of laparoscopic adjustable gastric banding History of tubal ligation History of section History of hysterectomy History of cholecystectomy Social History Social History Housing: House Alcohol intake: current Alcohol intake frequency: holidays/special occasions only Patient Tobacco Use Status: Former Tobacco user Quit Date: 20 yrs ago Tobacco use type: Cigarette Years Smoked: 15 years quit about 20 years ago e-Cigarette/Vaping Use: Never Used Second Hand Smoke Exposure: Yes Use of substances other than those prescribed or required for medical reasons: No Are you DNR?: No Advance Directives: No Advance Directives Information Provided: Yes service: No Current occupational status: unemployed Current occupation: rt handed Cognitive needs: No Hearing needs: No Vision needs: Yes Meds Allergies Allergy/AdvReac Type Severity Reaction Status Date / Time levofloxacin Allergy Severe hives Verified 02/01/23 08:14 Home Medications Medication Instructions Recorded Confirmed Last Taken Type mecobalamin (vitamin B12) 1,000 1,000 mcg sublingual DAILY 09/19/20 11/06/22 Unknown History mcg disintegrating tablet,sublingual gabapentin 300 mg capsule 600 mg PO BEDTIME PRN Pain 02/22/22 11/06/22 Unknown History biotin 5 mg capsule 5 mg PO DAILY 07/02/22 11/06/22 Unknown History nebulizers 07/02/22 Unknown History meclizine 25 mg tablet 25 mg PO TID-QID 08/23/22 11/06/22 Unknown History Exam Height,Weight and Vital Signs: Height 5 ft 2 in Weight 96.615 kg Pertinent Lab Results Pertinent Lab Results: Laboratory Tests 10/17/22 10/17/22 17:04 17:04 WBC 7.2 Hgb 13.3 Hct 39.3 Plt Count 198 Sodium 141 Potassium 3.7 Chloride 108 Carbon Dioxide 22 BUN 8 L Creatinine 0.76 Narrative Narrative: EKG 10/2022 Vent. Rate : 065 BPM ? ? Atrial Rate : 065 BPM ?? P-R Int : 136 ms? QRS Dur : 070 ms ? ? QT Int : 428 ms ? ? ? P-R-T Axes : 037 026 008 degrees ?? QTc Int : 445 ms ? Normal sinus rhythm with sinus arrhythmia Normal ECG When compared with ECG of 13-JAN-2022 14:41, No significant change was found Assessment and Plan Assessment Anesthesia Assessment: Chart Reviewed Final Anesthetic Review Family History of Problems with Anesthesia: No Documented by User: Richard Burger MD 02/01/23 09:29 [facility] Past Medical History Medical History Cervical mass Hot flashes Low libido BRCA gene positive Chronic idiopathic constipation Post herpetic neuralgia Pleuritic chest pain Multinodular thyroid Mixed connective tissue disease [id number] syndrome COVID-19 Lump of left thigh ÁNGELA (obstructive sleep apnea) Chest pain RUQ pain Thyroid nodule Lymphadenopathy Insomnia ILD (interstitial lung disease) Sarcoidosis Lung mass Dizziness SOB (shortness of breath) Transaminitis Pneumonia Sarcoidosis Family History Family History Father Cardiovascular disease Mother Cardiovascular disease Hypertension Thyroid condition Daughter Thyroid condition Rheumatoid arthritis Sister Thyroid condition Brother Rheumatoid arthritis Surgical History Surgical History History of lung surgery History of breast biopsy Hx of abdominoplasty History of laparoscopic adjustable gastric banding History of tubal ligation History of section History of hysterectomy History of cholecystectomy History of Problems with Anesthesia: No Social History Social History Housing: House Alcohol intake: current Alcohol intake frequency: holidays/special occasions only Patient Tobacco Use Status: Former Tobacco user Quit Date: 20 yrs ago Tobacco use type: Cigarette Years Smoked: 15 years quit about 20 years ago e-Cigarette/Vaping Use: Never Used Second Hand Smoke Exposure: Yes Use of substances other than those prescribed or required for medical reasons: No Are you DNR?: No Advance Directives: No Advance Directives Information Provided: Yes service: No Current occupational status: unemployed Current occupation: rt handed Cognitive needs: No Hearing needs: No Vision needs: Yes Meds Allergies Allergy/AdvReac Type Severity Reaction Status Date / Time levofloxacin Allergy Severe hives Verified 02/01/23 08:14 Home Medications Medication Instructions Recorded Confirmed Last Taken Type mecobalamin (vitamin B12) 1,000 1,000 mcg sublingual DAILY 09/19/20 11/06/22 Unknown History mcg disintegrating tablet,sublingual gabapentin 300 mg capsule 600 mg PO BEDTIME PRN Pain 02/22/22 11/06/22 Unknown History biotin 5 mg capsule 5 mg PO DAILY 07/02/22 11/06/22 Unknown History nebulizers 07/02/22 Unknown History meclizine 25 mg tablet 25 mg PO TID-QID 08/23/22 11/06/22 Unknown History Exam Airway Mallampati Class: III TM Dist: >3cm Neck ROM: Full Partial: Upper Loose/Missing/Broken Teeth: Yes Heart: [id number] Lungs: cta b/l Assessment and Plan Assessment Anesthesia Assessment: Anesthesia Plan Discussed Final Anesthetic Review History of Problems with Anesthesia: No NPO: Yes ASA Class: III Final Preanesthetic Review: No Changes in Pt Med Stat, Meds/Allgs Chart Reviewed, Consent Obtained/Reviewed and Anes Risks/Benef Reviewed Patient Risk: Intermediate Procedure Risk: Intermediate Assessment/Block/Sedation in SS: Assess/Block/Sedation-SS Anesthetic Plan Anesthetic Plan: GA and Agree w/ Assess. and Plan Disposition: Standard PACU
[2023-02-01] VITALS (7 sets, daily range): BP systolic 121–135; BP diastolic 69–77; PULSE 53–62; RESP 14–18; TEMP 36.3–36.7; O2SAT 96–100; BMI 39.5
[2023-02-01] MEDS: Lactated Ringers 1,000 ML 100 ML IVCONT (08:57)
--- NOTE | 2023-02-01 09:20 | MHC.SHP ---
Pre-Procedural Eval Section A Date of Service: 02/01/23 The patient is an INPATIENT: No Changes since office visit: No Cold of Flu in the past 2 weeks, No New Medical Problems, No Changes in Medication and No Patient answered all questions The History & Physical has been completed within 30 days and I have reviewed it.: Yes Section B Chief Complaint: Other specified noninflammatory disorders of cervi Allergies: Allergies Allergy/AdvReac Type Severity Reaction Status Date / Time levofloxacin Allergy Severe hives Verified 02/01/23 08:14 Plan Diagnosis/Plan: Unchanged I have reviewed the history and physical and performed a pertinent physical examination on my patient. No changes have occurred unless specified. Time Spent With Patient Time: Total time managing care of this patient today ____ minutes.
--- NOTE | 2023-02-01 10:02 | P.OP_ITS ---
Operative Note Operative Note Date of Service: 02/01/23 Narrative: Pre op diagnosis: Cervical mass Operation: Excision of cervical mass Postop diagnosis: the same Quantitative blood loss: 10 cc Surgeon: Oskar Headley MD, FACOG Telephone Exchange Operator: None Pathology: Cervical mass Complications: none Anesthesia: GLMA and Para cervical block Procedure: The patient was put in a dorsal lithotomy position, scrubbed and draped in the usual sterile fashion. A speculum was inserted inside the patient's vagina, the cervical lesion was seen. A loop was selected based upon the diameter of the lesion. 10 cc of xylocaine with epinephrine were injected submucosally into the surface of the cervix (ectocervix) at the 3, 6, 9, and 12 o'clock positions. The electrosurgical generator was set at 40 ramos on blend 1. The loop was carefully passed simultaneously around cervical lesion/mass, in order to ensure excising it making sure the lesion is at least 5 mm far from the specimen margins, hemostasis was obtained with a Ball electrode or regular tip cautery. At the end, Monsel's solution was applied to the cervical bed. The patient tolerated the procedure well and, all instruments were taken out of the patient vaginal cavity, and the patient was transferred to the PACU in stable condition.
--- NOTE | 2023-02-01 10:02 | PM.OP ---
Brief Operative Note Date of Service: 02/12/20 Pre-op diagnosis: Cervical mass Post-op diagnosis: same Procedure: Excision of cervical mass Surgeon: Oskar Headley MD Anesthesia: GLMA and other (Paracervical block) Was an Director Of Outreach used for this Procedure?: No Estimated blood loss (mL): 0 Pathology: other (Cervical mass) Condition: stable Disposition: other (Home)
== END 2023-02-01 11:10 | disposition home or self-care (01) ==
PROVIDERS: PCP Nurse Practitioner Family; Visit Provider Obstetrics & Gynecology
PROC: (CPT 57522; principal; 2023-02-01 09:30)
DX: N88.8 Other specified noninflammatory disorders of cervix uteri (principal); R68.82 Decreased libido; N95.1 Menopausal and female climacteric states; E04.2 Nontoxic multinodular goiter; Z15.01 Genetic susceptibility to malignant neoplasm of breast; D86.9 Sarcoidosis, unspecified; G47.33 Obstructive sleep apnea (adult) (pediatric); B02.29 Other postherpetic nervous system involvement; M35.1 Other overlap syndromes; J84.9 Interstitial pulmonary disease, unspecified; R59.1 Generalized enlarged lymph nodes; R74.01 Elevation of levels of liver transaminase levels; Z79.899 Other long term (current) drug therapy; Z88.8 Allergy status to other drugs, medicaments and biological substances; Z90.710 Acquired absence of both cervix and uterus; Z98.84 Bariatric surgery status; Z98.890 Other specified postprocedural states; Z86.16 Personal history of COVID-19; Z87.891 Personal history of nicotine dependence
CPT/HCPCS: 57522; 88304; J1885; J2405; J2704; J3010

== ENCOUNTER → 2023-02-01 07:21 | Outpatient (BNV) | payer BC, SELFPAY | PROVIDERS: PCP Nurse Practitioner Family; Visit Provider Obstetrics & Gynecology | DX: N88.8 Other specified noninflammatory disorders of cervix uteri (principal) | CPT/HCPCS: 57522 ==

== ENCOUNTER 2023-02-12 08:33 | Outpatient (AMB) | payer BC, SELFPAY ==
--- NOTE | 2023-02-12 08:44 | A.OFFVIS_ITS ---
Intake Vital Signs 02/12/23 08:49 Height 5 ft 2 in Weight 215 lb BMI 39.3 Intake Visit Reasons: fc- fracture of right toe(s), Intake Note: Marisabel is a 52 year old female who presents today with a walking boot for a evaluation of her right 4th toe fx, DOI ~01/31/23. Patient reports while she was playing with her grandson she hit her toe on a trampoline. She was seen by her PCP who ordered xrays and was referred to orthopedics. Currently constant ache and throbbing pain in her 4th toe, stating pain increases with her foot at rest while she is in a sitting position. Allergies levofloxacin Allergy (Severe, Verified 02/01/23 08:14) hives HPI fc- fracture of right toe(s), HPI Details 52-year-old female who presents in the o ffice today, as a new patient, for an evaluation of right foot pain. The patient was seen by her PCP on 01/31/2023 for right 4th toe pain. The patient reported to her PCP she has been playing on a small indoor trampoline with her grandson on 01/28/2023, when she forgot it was there and she kicked the metal leg injuring her ring toe. While in the office today she reports constant pain in the 4th toe of the right foot, which increases when the foot is at rest in the sitting position. Patient presents in the office today in a normal shoe. 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 COVID-19 Lump of left thigh ÁNGELA (obstructive sleep apnea) Chest pain RUQ pain Thyroid nodule Lymphadenopathy Insomnia ILD (interstitial lung disease) Sarcoidosis Lung mass Dizziness SOB (shortness of breath) Transaminitis Pneumonia Sarcoidosis Surgical History History of lung surgery History of breast biopsy Hx of abdominoplasty History of laparoscopic adjustable gastric banding History of tubal ligation History of section History of hysterectomy History of cholecystectomy Family History Father Cardiovascular disease Mother Cardiovascular disease Hypertension Thyroid condition Daughter Thyroid condition Rheumatoid arthritis Sister Thyroid condition Brother Rheumatoid arthritis Social History Housing: House Alcohol intake: current Alcohol intake frequency: holidays/special occasions only Patient Tobacco Use Status: Former Tobacco user Quit Date: 20 yrs ago Tobacco use type: Cigarette Years Smoked: 15 years quit about 20 years ago e-Cigarette/Vaping Use: Never Used Second Hand Smoke Exposure: Yes service: No Current occupational status: unemployed Current occupation: rt handed Cognitive needs: No Hearing needs: No Vision needs: Yes Review of Systems Const All systems reviewed & are unremarkable except as noted in HPI and below Physical Exam Vital Signs: BMI result Body Mass Index 39.3 Const General: cooperative and no acute distress Orientation/consciousness: patient oriented x3 Resp Effort & Inspection: normal respiratory effort and able to speak in complete sentences Cardio Peripheral pulses: Peripheral pulses 2+ throughout Skin General skin exam: no rashes or lesions noted Neuro General: patient oriented x3 Extrem Other: Right foot: Normal to inspection. No ecchymosis, erythema, or edema. Tenderness to palpation over the proximal phalanx of the right ring toe. Sensation intact. Capillary refill is brisk. Office Procedures Fracture Care Fracture Billing Code: Fracture Billing Code Assessment & Plan Assessment & Plan (1) Closed fracture of phalanx of right fourth toe: Code(s): S92.501A - Displaced unspecified fracture of right lesser toe(s), initial encounter for closed fracture Qualifiers: Encounter type: initial encounter Qualified Code(s): S92.501A - Displaced unspecified fracture of right lesser toe(s), initial encounter for closed fracture Plan Ms. Rutherford is a 52-year-old female who presents in the office today, as a new patient, for an evaluation of right foot pain. The patient was seen by her PCP on 01/31/2023 for right 4th toe pain. The patient reported to her PCP she has been playing on a small indoor trampoline with her grandson on 01/28/2023, when she forgot it was there and she kicked the metal leg injuring her toe. While in the office today she reports constant pain in the 4th toe of the right foot, which increases when the foot is at rest in the sitting position. Patient presents in the office today in a [facility]. The patient had her middle and ring toe spike taped while in the office today for comfort. She will modify her activities to pain tolerance. I educated the patient that bone takes 6-8 weeks to heal. Should her pain continue in 2 months she will call the office for further evaluation. Follow up will be PRN, or sooner if needed. X-rays of the right foot, obtained on 01/31/2023, revealed: Nondisplaced spiral fracture of the proximal phalanx of the right fourth toe. Patient Instructions: Scribed for Delmis Jaramillo PA-C by Barbara Goss medical office rep, on 02/11/2023 at 8:34 am, EST. Coding Level of Care Code New Pt Level 4 (91470) Diagnoses Closed fracture of phalanx of right fourth toe, initial encounter S92.501A Encounter type: initial encounter CPT Codes Fracture Care - Fracture Billing Code: Fracture Billing Code ([id number])
[2023-02-12 08:49] VITALS: BMI 39.3
== END 2023-02-12 09:05 | disposition home or self-care (01) ==
PROVIDERS: PCP Nurse Practitioner Family; Visit Provider Physician Assistant
DX: S92.501A Displaced unspecified fracture of right lesser toe(s), initial encounter for closed fracture (principal)
CPT/HCPCS: 99204

== ENCOUNTER → 2023-02-12 08:33 | Outpatient (BNVA) | payer BC, SELFPAY | PROVIDERS: PCP Nurse Practitioner Family; Visit Provider Physician Assistant ==

== ENCOUNTER 2023-02-13 09:33 | Emergency (ER) | payer BC, SELFPAY ==
[2023-02-13 09:36] VITALS: BP 145/70; PULSE 65; RESP 18; TEMP 36.4; O2SAT 99; BMI 39.4
--- NOTE | 2023-02-13 10:35 | ED.GENADULT ---
HPI - General Adult General Chief complaint: Upper Respiratory Symptoms Stated complaint: Chest pain, cough, headache Time Seen by Provider: 02/13/23 10:34 Source: patient Mode of arrival: ambulatory Limitations: no limitations History of Present Illness HPI narrative: Patient is a 52 year old assigned female at with a history of asthma and GERD presenting to the emergency department today with a cough, nasal congestion, and a headache. Patient states that over the last day she has had a cough, nasal congestion, and a headache. Patient states that she was exposed to 2 children who were confirmed RSV positive. Patient denies any dizziness, lightheadedness, abdominal pain, nausea, vomiting, fever, chills, blurry vision, double vision, loss of vision, chest pain, difficulty breathing, shortness of breath, back pain, night sweats, pain with urination, increased urinary frequency, increased urinary urgency, blood in her urine or stool, syncope or a near syncopal episode, recent trauma or falls, bowel incontinence, bladder incontinence, bowel retention, bladder retention, or any other complaints at this time. Onset (ago): day(s) (1) Severity: mild Severity scale (1-10): 3 Relieving factors: none Exacerbating factors: none Associated symptoms: denies other symptoms Treatments prior to arrival: none Related Data Home Medications Medication Instructions Recorded Confirmed mecobalamin (vitamin B12) 1,000 1,000 mcg sublingual DAILY 09/19/20 11/06/22 mcg disintegrating tablet,sublingual gabapentin 300 mg capsule 600 mg PO BEDTIME PRN Pain 02/22/22 11/06/22 biotin 5 mg capsule 5 mg PO DAILY 07/02/22 11/06/22 nebulizers 07/02/22 meclizine 25 mg tablet 25 mg PO TID-QID 08/23/22 11/06/22 Previous Rx's Medication Instructions Recorded albuterol sulfate 2.5 mg/3 mL 2.5 mg (3 mL) inhalation Q6H PRN 10/25/20 (0.083 %) solution for nebulization shortness of breath or wheezing #225 mL eszopiclone 1 mg tablet (Lunesta) 1 mg PO BEDTIME 90 days #90 tabs 01/04/22 folic acid 1 mg tablet 1 mg PO DAILY 90 days #90 tabs 05/16/22 diclofenac sodium 1 % topical gel 4 g topical QID pain #180 grams 07/08/22 (Arthritis Pain (diclofenac)) cholecalciferol (vitamin D3) 125 125 mcg PO DAILY #30 caps 08/23/22 mcg (5,000 unit) capsule [id number] 1 cap PO QID #120 caps 08/23/22 36,000-114,000-180,000 unit capsule,delay rel (Creon) simethicone 180 mg capsule 180 mg PO QID 30 days #120 caps 08/23/22 lidocaine 5 % topical patch 1 patch topical DAILY 30 days #30 09/13/22 (Lidoderm) ea famotidine 40 mg tablet (Pepcid) 40 mg PO BEDTIME #30 tabs 09/20/22 budesonide 0.5 mg/2 mL suspension 0.5 mg (2 mL) inhalation BID #360 10/26/22 for nebulization mL budesonide-formoterol HFA 160 2 puff PO BID #30.6 ea 10/26/22 mcg-4.5 mcg/actuation aerosol inhaler oxycodone-acetaminophen 5 mg-325 1 tab PO Q8H PRN pain 10 days #30 11/13/22 mg tablet (Percocet) tabs prednisone 10 mg tablet 20 mg (2 x 10 mg) PO DAILY 30 days 11/13/22 #60 tabs lubiprostone 8 mcg capsule 16 mcg (2 x 8 mcg) PO BID #360 caps 11/23/22 albuterol sulfate 90 mcg/actuation 2 puff PO Q6H PRN shortness of 11/24/22 aerosol inhaler breath or wheezing #8.5 grams duloxetine 30 mg capsule,delayed 30 mg PO DAILY pain 30 days #30 12/01/22 release caps Orencia ClickJect 125 mg/mL 125 mg subcut QWEEK #4 mL 01/08/23 subcutaneous auto-injector (abatacept) oxycodone 5 mg tablet 5 mg PO Q8H PRN pain 10 days #30 01/18/23 tabs omeprazole 40 mg capsule,delayed 40 mg PO DAILY #90 caps 01/21/23 release oxycodone 5 mg tablet 5 mg PO TID PRN pain #10 tabs 02/07/23 prednisone 20 mg tablet 20 mg PO DAILY 7 days #7 tabs 02/13/23 Allergies Allergy/AdvReac Type Severity Reaction Status Date / Time levofloxacin Allergy Severe hives Verified 02/13/23 09:35 Review of Systems Constitutional: Constitutional: Reports no additional constitutional complaints, Denies chills, Denies fever(s), Reports headache(s) and Denies night sweats Eyes: Eyes: Reports no additional eye complaints, Denies blurry vision, Denies change in vision, Denies diplopia, Denies eye discharge, Denies loss of vision and Denies eye pain ENT: Denies dizziness, Reports headache(s) and Reports nasal congestion Cardiovascular: Cardiovascular: Reports no additional cardiovascular complaints, Denies chest pain, Denies lightheadedness, Denies Loss of Consciousness and Denies dyspnea Respiratory: Respiratory: Reports no additional respiratory complaints, Reports cough and Denies dyspnea Gastrointestinal: Gastrointestinal: Reports no additional gastrointestinal complaints, Denies abdominal pain, Denies melena, Denies hematochezia, Denies change in bowel habits and Denies change in stool character Genitourinary: Genitourinary: Denies hematuria, Denies urinary frequency, Denies dysuria, Denies urinary incontinence, Denies urinary hesitancy and Denies urinary urgency Musculoskeletal: Musculoskeletal: Reports no additional musculoskeletal complaints, Denies numbness and Denies tingling Neurologic: Denies dizziness, Reports headache(s), Denies loss of vision, Denies numbness and Denies tingling Psychiatric: Psychiatric: Reports no additional psychiatric complaints Endocrine: Endocrine: Reports no additional endocrine complaints Hematologic/Lymphatic: Hematologic/Lymphatic: Reports no additional hematologic/lymphatic complaints Allergic/Immunologic: Allergic/Immunologic: Reports no additional allergic/immunologic complaints PMF Past Medical History Attestation statement: The following information was validated with the patient. Source: old records reviewed and nursing notes reviewed Medical History Closed fracture of phalanx of right fourth toe Toe fracture, right Right foot pain Toe pain, right Hot flashes Low libido Pre-op examination Obesity (BMI 30-39.9) Adult general medical exam Diarrhea Screening for breast cancer Cervical cancer screening Screening for colon cancer 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, unspecified prison systemic steroid user Pleuritic chest pain Sinusitis COVID-19 Headache Right ankle sprain Ankle pain Chest pain RUQ pain Thyroid nodule Lymphadenopathy Bradycardia Pneumonia Cervical mass BRCA gene positive Chronic idiopathic constipation Post herpetic neuralgia Multinodular thyroid 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 Lump of left thigh ÁNGELA (obstructive sleep apnea) Insomnia ILD (interstitial lung disease) Sarcoidosis Lung mass Dizziness SOB (shortness of breath) Transaminitis Sarcoidosis Surgical History History of lung surgery History of breast biopsy Hx of abdominoplasty History of laparoscopic adjustable gastric banding History of tubal ligation History of section History of hysterectomy History of cholecystectomy Family History Family History Father Cardiovascular disease Mother Cardiovascular disease Hypertension Thyroid condition Daughter Thyroid condition Rheumatoid arthritis Sister Thyroid condition Brother Rheumatoid arthritis Social History Social History Housing: House Alcohol intake: current Alcohol intake frequency: holidays/special occasions only Patient Tobacco Use Status: Former Tobacco user Quit Date: 20 yrs ago Tobacco use type: Cigarette Years Smoked: 15 years quit about 20 years ago e-Cigarette/Vaping Use: Never Used Second Hand Smoke Exposure: Yes Advance Directives: No Advance Directives Information Provided: No service: No Current occupational status: unemployed Current occupation: rt handed Cognitive needs: No Hearing needs: No Vision needs: Yes Physical Exam ED Vital Signs: Vital Signs - 24 hr 02/13/23 09:36 Temperature 97.5 F Pulse Rate 65 Respiratory Rate 18 Blood Pressure 145/70 H Pulse Oximetry 99 Oxygen Delivery Method Room Air BMI result Body Mass Index 39.4 Const General: cooperative, no acute distress, alert and awake Nutritional Appearance: well nourished Orientation/consciousness: patient oriented x3 Limitations: no limitations HENMT Head: Yes normal to inspection and Yes atraumatic Ears: hearing grossly normal bilaterally and external ears normal General nose exam: Normal external nose present, no nasal discharge noted and no epistaxis Face and sinus: Yes normal facial exam, No abrasion and No laceration Mouth: Normal oral and palatal mucosa present, no drooling and no muffled voice Eyes General: appearance normal, both eyes and all related structures Periorbital: periorbital findings normal Eyelids: Yes eyelids normal Conjunctivae: conjunctivae normal Pupils: Equal, round and reactive pupils present EOM: EOMs intact bilaterally Neck Neck: Yes normal visual inspection, Yes full ROM and Yes no lymphadenopathy Chest Chest palpation & inspection: normal inspection of the chest Resp Effort & Inspection: normal respiratory effort and able to speak in complete sentences Auscultation: clear to auscultation bilaterally GI Inspection: Yes normal to inspection Neuro General: patient oriented x3 and moves all extremities Cranial nerves: Yes Equal, round and reactive pupils present Cognition (Neuro): normal cognition Motor exam (neuro): 5/5 motor strength present throughout Sensory Exam: Normal double simultaneous stimulation for sensation Coordination: [id number] test normal Extrem General: Yes normal to inspection, Yes full ROM and Yes capillary refill normal Psych Appearance: grossly normal Mental Status: mental status grossly normal Affect: normal affect Attitude: cooperative Thought process: Normal thought process present Thought content: Normal thought content present Insight: Good insight present (Psych) Medical Decision Making Medical Decision Making MDM Narrative: Patient is a 52 year old assigned female at with a history of asthma and GERD presenting to the emergency department today with a cough, nasal congestion, and a headache. Patient's physical exam was unremarkable. Patient's COVID-19, RSV, and influenza tests were negative. I explained my physical exam findings as well as all test results to the patient. I answered all questions asked by the patient. Patient received decadron while in the department. I stressed the importance of the patient taking her medication as prescribed. I stressed the importance of the patient following up with her primary care provider. I stressed the importance of the patient returning to the emergency department immediately if her symptoms were to worsen or if she were to develop any dizziness, shortness of breath, difficulty breathing, chest pain, blurry vision, loss of vision, nausea, vomiting, abdominal pain, fever, chills, back pain, or any other complaints. Patient verbalized agreement and understanding with this treatment plan and discharge. Differential Diagnosis Differential Diagnoses: The differential diagnosis associated with the presentation includes COVID-19 RSV Influenza URI Asthma exacerbation Admission/Observation Consideration of admission/observation: Escalation of care including admission/observation considered Patient would have been admitted to the hospital had her work up had any findings where hospital admission was appropriate and her clinical presentation warranted hospital admission. Lab Data [facility] Lab Attestation statement: I reviewed the patient's lab results. My interpretation of these studies and their corresponding values is that they are grossly normal. Labs: Lab Results 02/13/23 Range/Units 11:02 Influenza Type A (PCR) NEGATIVE (Negative) Influenza Type B (PCR) NEGATIVE (Negative) RSV RNA Qual (PCR) NEGATIVE (Negative) SARS-CoV-2 RNA (RT-PCR) NEGATIVE (Negative) Discharge Plan Discharge Clinical Impression: Asthma exacerbation, URI (upper respiratory infection) Patient Disposition: Home, Self-Care Instructions: Asthma (DC), Upper Respiratory Infection (DC) Additional Instructions: Follow up with your primary care provider. Return to the emergency department immediately if your symptoms worsen or if you develop any dizziness, shortness of breath, difficulty breathing, chest pain, blurry vision, loss of vision, nausea, vomiting, abdominal pain, fever, chills, back pain, or any other complaints. Prescriptions: New prednisone 20 mg tablet 20 mg PO DAILY 7 Days Qty: 7 0RF No Action albuterol sulfate 2.5 mg /3 mL (0.083 %) solution for nebulization 2.5 mg inhalation Q6H PRN (Reason: shortness of breath or wheezing) Qty: 225 11RF folic acid 1 mg tablet 1 mg PO DAILY 90 Days Qty: 90 11RF cholecalciferol (vitamin D3) 125 mcg (5,000 unit) capsule 125 mcg PO DAILY Qty: 30 6RF budesonide-formoterol 160-4.5 mcg/actuation HFA aerosol inhaler 2 puff PO BID Qty: 30.6 3RF budesonide 0.5 mg/2 mL suspension for nebulization 0.5 mg inhalation BID Qty: 360 3RF lubiprostone 8 mcg capsule 16 mcg PO BID Qty: 360 1RF albuterol sulfate 90 mcg/actuation HFA aerosol inhaler 2 puff PO Q6H PRN (Reason: shortness of breath or wheezing) Qty: 8.5 9RF duloxetine 30 mg capsule,delayed release(DR/EC) 30 mg PO DAILY 30 Days Qty: 30 3RF Orencia ClickJect 125 mg/mL auto-injector 125 mg subcut QWEEK Qty: 4 2RF oxycodone 5 mg tablet 5 mg PO Q8H PRN (Reason: pain) 10 Days Qty: 30 0RF Rx Instructions: Partial Fill upon patient request. omeprazole 40 mg capsule,delayed release(DR/EC) 40 mg PO DAILY Qty: 90 2RF Hold Instructions: insurance not covering oxycodone 5 mg tablet 5 mg PO TID PRN (Reason: pain) Qty: 10 0RF Rx Instructions: Partial Fill upon patient request. mecobalamin (vitamin B12) 1,000 mcg tablet,disintegrating 1,000 mcg sublingual DAILY gabapentin 300 mg capsule 600 mg PO BEDTIME PRN (Reason: Pain) biotin 5 mg capsule 5 mg PO DAILY (DME) nebulizers Misc See Rx Instructions .Route Rx Instructions: As directed eszopiclone [Lunesta] 1 mg tablet 1 mg PO BEDTIME 90 Days Qty: 90 0RF oxycodone-acetaminophen [Percocet] 5-325 mg tablet 1 tab PO Q8H PRN (Reason: pain) 10 Days Qty: 30 0RF Rx Instructions: Partial Fill upon patient request. prednisone 10 mg tablet 20 mg PO DAILY 30 Days Qty: 60 3RF meclizine 25 mg tablet 25 mg PO TID-QID Creon 36,000-114,000- 180,000 unit capsule,delayed release(DR/EC) 1 cap PO QID Qty: 120 3RF Rx Instructions: administer with meals and/or snacks simethicone 180 mg capsule 180 mg PO QID 30 Days Qty: 120 3RF Rx Instructions: after meals famotidine [Pepcid] 40 mg tablet 40 mg PO BEDTIME Qty: 30 6RF diclofenac sodium [Arthritis Pain (diclofenac)] 1 % gel 4 g topical QID Qty: 180 1RF Rx Instructions: Apply 1-3 grams (pumps) to the affected area 3-4 times daily. lidocaine [Lidoderm] 5 % adhesive patch,medicated 1 patch topical DAILY 30 Days Qty: 30 12RF Rx Instructions: leave on most painful area for up to 12 hrs Referrals: Coral Sharma FNP [Primary Care Provider] - Print Language: Wolof
[2023-02-13 11:51] LABS: Influenza A PCR NEGATIVE (Negative); Influenza B PCR NEGATIVE (Negative); Resp Syncy Virus RNA Qual PCR NEGATIVE (Negative); SARS COV2 PCR INHOUSE NEGATIVE (Negative)
[2023-02-13] MEDS: dexAMETHasone sod phosphate 10 MG/ML VIAL PO (12:19)
[2023-02-13 12:21] VITALS: BP 121/66; PULSE 57; RESP 16; TEMP 36.6; O2SAT 99
== END 2023-02-13 12:23 | disposition home or self-care (01) ==
PROVIDERS: Emergency Provider Student in an Organized Health Care Education/Training Program; PCP Nurse Practitioner Family
DX: J06.9 Acute upper respiratory infection, unspecified (principal); J45.901 Unspecified asthma with (acute) exacerbation; Z20.822 Contact with and (suspected) exposure to COVID-19; Z20.828 Contact with and (suspected) exposure to other viral communicable diseases
CPT/HCPCS: 0241U; 99283; J1100

== ENCOUNTER 2023-02-14 13:53 | Outpatient (AMB) | payer BC, SELFPAY ==
--- NOTE | 2023-02-14 13:53 | A.OFFVIS_ITS ---
Intake Vital Signs 02/14/23 13:54 Height 5 ft 2 in Weight 215 lb 2.738 oz BMI 39.4 Intake Visit Reasons: Discuss CT/Labs Results Allergies levofloxacin Allergy (Severe, Verified 02/14/23 13:54) hives HPI HPI Comments History of Present Illness Details The patient is a 52-year-old woman with a known history of rheumatoid arthritis previously on immunomodulators including methotrexate and Humira. Apparently back in May 05, 2018 the patient developed a tooth abscess needing antibiotics. Subsequently complicated by pneumonia. She was admitted to [facility] which was found to have ground-glass opacities bilaterally consistent with pneumonitis and also nodular densities in the right middle lobe. She was evaluated by Pulmonary at that point. If felt necessary for her to have a bronchoscopy. Apparently I do not have the details of the bronchoscopy which she may have had some bleeding therefore not leading to any biopsies. However, her cultures were all negative for infection. 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 She did undergo a Navagation-guided biopsy of the consolidated lung. Was consistent with non-necrotizing granulomas which is very suspicious of sarcoidosis. The p atient has other symptoms in addition to some hair loss she has had some visual loss denies any rashes she has significant arthritis and swelling of her body. The question is if this is related to sarcoid or related to her underlying connective tissue disease. At this point based on the fact that she has failed methotrexate and has significant evidence of sarcoid in addition to interstitial lung disease the patient needs to be placed on immunomodulator therapy. Therefore, I will send her CellCept. Patient also will take prednisone in the meantime. I did speak to her gynecological assistant about this. She is scheduled to undergo a CT scan of chest the end of this month. Will see if the medication is helping some size some of the findings. Apparently she was started on CellCept to help her with her inflammatory autoimmune condition. However, after starting the small dose of 500 twice a day the patient started having multiple complaints including lightheadedness, nausea vomiting, memory loss and weakness. She was not started on any other medicine. Therefore the patient came in to be evaluated. She also stop the prednisone about a day ago. She started to develop significant swelling of her hands and risk. Right more than left. She does have a CT scan of the scan plan for the beginning of May. At this point the av request the patient stop the medicine. I will provide her Solu-Medrol 125 mg IM and she should restart the prednisone. I will also refer the patient to the sarcoid clinic at [facility]. Based on the fact the patient has tried and failed methotrexate and now mycophenolate I do not believe immunomodulators are good option for her. Therefore, based on the fact that she has a do a diagnosis of both sarcoidosis and rheumatoid arthritis I do believe using Remicade may be a reasonable option. I will reach out to her gynecological assistant at this time. We did discuss her CT scan that she had recently demonstrating interval improvement in her areas of consolidation which is reassuring. 04/30/2022 the patient is here for a pulmonary follow-up visit. She is complaining of worsening pleuritic chest discomfort. She had been well until recently and she became sick with likely a viral syndrome. She has been coughing more. She has been concerned because now her pleuritic discomfort that typically is only on her right side now also involving her left. Denies any significant mucus production at this time. Denies any significant shortness of breath. She is scheduled to see Rheumatology sometime this week. Therefore, explained to her that be best to hold off on any steroid therapy that may interfere with the analysis that will be required. Therefore will work on pain management and also request a chest x-ray. If she has has worsening findings on the x-ray but no be reasonable to treat her more urgently. 07/02/2022 the patient is here for a pulmonary follow-up visit. She is complaining of worsening pleuritic chest discomfort. Moderate in severity. Not any worse. Was referred to pain clinic. Last CT ches was in 01/2022 with lumg mass. She will be starting Orencia soon. Will plan to repeat CT chest after 3-4 month of therapy. Has not required any prednisone. She is confused with her diagnosis. I reassured her that based on her biopsy with non necrotizing granulomas consistent with a sarcoid like activity. Likely a manifestation of her autoimmune disease. Does not appear to be consistent with medication induced or smoldering infections. She also has difficulty sleeping. She is using Lunesta as needed. Currently helping taking care of a so she is not using it as often. 11/13/2022 the patient is here for pulmonary follow-up visit. She continues to have worsening pleuritic discomfort. Moderate to severe. The patient is very discouraged rate now. Her discomfort is primarily on the right side. She is working closely with pain management. In the meantime she did have a CT scan of the chest that I personally reviewed. It appears that the right-sided masslike density has increased in size. Again the biopsy was suggestive of a sarcoid like reaction. She did follow-up with Rheumatology. Appears that her blood work is consistent with rheumatoid arthritis. She was prescribed Orencia however, the patient has not been able to start the medication as of yet. The patient has been off all CellCept and also has not been on any prednisone. Explained to her that with this inflammatory process she does need a component of anti-inflammatory therapy. The patient is also having pain. At this point will provide her with analgesia to provide her with some relief. the patient will start the prednisone and subsequently hopefully start the Orencia soon in order to repeat the CT scan in 3 months time. If the patient does not respond to therapy then referral to [facility] will requested. 02/14/2023 The patient has a telehealth visit. She started developing flu like symptoms 3 days ago. She went to the ED and sent home, then she tested with ahome test and has positive for covid yesterday. Having more asthma symptoms. She had been taking Orencia for her RA and had been on prednisone 20mg. But she has been off the Orencia and also the prednisone. She will be starting Paxlovid x 5 days. We did review her CT cest, It is reassuring that her mass like density has not changed. Although, she does have a new pulmonary nodule. Appears to be in a vascular distribution and would benefit in a CT chest with IV contrast for the next evaluation. She continues to have pain and does respond well to the oxycodone. She also recently fractured her toe and is recovering for that as well. [facility] Medical History (Updated 02/14/23 @ 20:23 by Manolo Briggs MD) COVID-19 Closed fracture of phalanx of right fourth toe Toe fracture, right Right foot pain Toe pain, right Hot flashes Low libido Pre-op examination Obesity (BMI 30-39.9) Adult general medical exam Diarrhea Screening for breast cancer Cervical cancer screening Screening for colon cancer 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, unspecified nursing home systemic steroid user Pleuritic chest pain Sinusitis Headache Right ankle sprain Ankle pain Chest pain RUQ pain Thyroid nodule Lymphadenopathy Bradycardia Pneumonia Cervical mass BRCA gene positive Chronic idiopathic constipation Post herpetic neuralgia Multinodular thyroid 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 Lump of left thigh ÁNGELA (obstructive sleep apnea) Insomnia ILD (interstitial lung disease) Sarcoidosis Lung mass Dizziness SOB (shortness of breath) Transaminitis Sarcoidosis Surgical History History of lung surgery History of breast biopsy Hx of abdominoplasty History of laparoscopic adjustable gastric banding History of tubal ligation History of section History of hysterectomy History of cholecystectomy Family History Father Cardiovascular disease Mother Cardiovascular disease Hypertension Thyroid condition Daughter Thyroid condition Rheumatoid arthritis Sister Thyroid condition Brother Rheumatoid arthritis Social History Housing: House Alcohol intake: current Alcohol intake frequency: holidays/special occasions only Patient Tobacco Use Status: Former Tobacco user Quit Date: 20 yrs ago Tobacco use type: Cigarette Years Smoked: 15 years quit about 20 years ago e-Cigarette/Vaping Use: Never Used Second Hand Smoke Exposure: Yes service: No Current occupational status: unemployed Current occupation: rt handed Cognitive needs: No Hearing needs: No Vision needs: Yes Review of Systems Const Denies chills, Reports headache(s) and Denies weight loss ENT Reports headache(s) Card Reports chest pain, Denies syncope, Denies irregular heart rhythm and Denies dyspnea Resp Denies chest congestion, Reports cough, Reports pain on inspiration, Reports pain with cough, Denies dyspnea and Reports wheezing GI Denies abdominal pain, Denies change in stool character, Denies nausea and Denies vomiting Musc Denies deformity and Denies joint swelling Neuro Denies syncope and Reports headache(s) Aller/Immun Reports wheezing Physical Exam Vital Signs: BMI result Body Mass Index 39.4 Const General: comfortable and alert Orientation/consciousness: patient oriented x3 Resp Effort & Inspection: able to speak in complete sentences Neuro General: patient oriented x3 Results Reviewed Results Reviewed: personally reviewed CT chest with mass like density and new pulmonary nodule Assessment & Plan Assessment & Plan (1) Lung mass: Comment: Surgical biopsy with a combination of granulomas, organizing pneumonia and lipid aspiration Code(s): R91.8 - Other nonspecific abnormal finding of lung field (2) ILD (interstitial lung disease): Code(s): J84.9 - Interstitial pulmonary disease, unspecified (3) Seropositive rheumatoid arthritis: Comment: +++RF+++CCP Onset early 2014. SSZ started 02/15 - stopped due diarrhea MTX taken briefly 2015- May 2015? MTX restarted 07/18- changed to SC Dec 2016 due to nausea Humira added 02/18 to methotrexate. Both stopped 04/22 due to infection. Humira was suspected to have caused lung issues (?drug induced sarcoid) MTX and Humira remained held 03/23 04/23: Cellcept started by pulmonary - GI side effects, confusion so it was stopped 07/21 methotrexate and Humira restarted stopped sometime in 2020 Imuran briefly, not sure what happened with that 2020 Orencia attempted got denied. Approved 07/2022 not started yet Code(s): M05.9 - Rheumatoid arthritis with rheumatoid factor, unspecified (4) Chest pain: Code(s): R07.9 - Chest pain, unspecified Qualifiers: Chest pain type: intercostal pain Qualified Code(s): R07.82 - Intercostal pain (5) COVID-19: Code(s): U07.1 - COVID-19 Plan start Paxlovid Restart Prednisone once off the paxlovid, taper prednisone down once on Orencia start Doxycycline if worsening bronchitis Pain control: Lidoderm patch, percocet PPI reflux diet Lunesta as needed for sleep F/U with Rheumatology repeat CT chest 3-6 months with IV contrat Follow-up in 2-3 months Medications: New nirmatrelvir-ritonavir 300 mg (150 mg x 2)-100 mg (Paxlovid) take TWO 150 mg tablets of nirmatrelvir with ONE 100 mg tablet of ritonavir twice daily for 5 days PO 30 ea 0RF doxycycline hyclate 100 mg PO BID 10 days 20 caps 0RF Refilled oxycodone Partial Fill upon patient request. 5 mg PO Q8H 10 days PRN 30 tabs 0RF pain Telehealth Telehealth Location of provider rendering services: practice address Location of patient: address on file Patient Identification confirmed using: Name, : Yes Telehealth method: voice only Patient verbally consented to treatment: Yes Patient verbally consented to billing insurance company: Yes Patient informed of any privacy concerns related to visit: Yes Coding Level of Care Code Tele Est Pt Level 5 (17278) Diagnoses Lung mass R91.8 ILD (interstitial lung disease) J84.9 Seropositive rheumatoid arthritis M05.9 Intercostal pain R07.82 Chest pain type: intercostal pain COVID-19 U07.1 Time Spent (min) 30
[2023-02-14 13:54] VITALS: BMI 39.4
== END 2023-02-14 14:25 | disposition home or self-care (01) ==
LOC: HO.HPS 13:53
PROVIDERS: PCP Nurse Practitioner Family; Visit Provider Hospitalist
DX: R91.8 Other nonspecific abnormal finding of lung field (principal); J84.9 Interstitial pulmonary disease, unspecified; R07.82 Intercostal pain; U07.1 COVID-19
CPT/HCPCS: 99443

== ENCOUNTER → 2023-02-14 13:53 | Outpatient (BNVA) | payer BC, SELFPAY | PROVIDERS: PCP Nurse Practitioner Family; Visit Provider Hospitalist | DX: R91.8 Other nonspecific abnormal finding of lung field (principal); M35.1 Other overlap syndromes; B02.29 Other postherpetic nervous system involvement ==

== ENCOUNTER 2023-02-21 11:00 | Outpatient (AMB) | payer BC, SELFPAY ==
--- NOTE | 2023-02-21 11:17 | MHC.OFFVIS ---
Intake Vital Signs 02/21/23 11:21 Height 5 ft 2 in Weight 213 lb 13.574 oz BMI 39.1 BP 124/78 Intake Visit Reasons: post op Occupational Therapist Rehab Manager Required: No Information Interpreted: non-clinical & clinical Accompanied by: Self / Same As Patient Allergies levofloxacin Allergy (Severe, Verified 02/21/23 11:22) hives Post menopausal: Yes HPI HPI Comments History of Present Illness Details Presenting for post cervical mass excision for follow-up. The patient patient is doing well with no complaints. The pathology showed the following: Cervix, mass, biopsy: Squamocolumnar junctional mucosa with multiple, dilated Nabothian cysts, mild chronic inflammation and previous biopsy site changes; negative for dysplasia or malignancy [facility] Medical History (Updated 02/21/23 @ 11:32 by Oskar Headley MD) COVID-19 Closed fracture of phalanx of right fourth toe Toe fracture, right Right foot pain Toe pain, right Hot flashes Low libido Pre-op examination Obesity (BMI 30-39.9) Adult general medical exam Diarrhea Screening for breast cancer Cervical cancer screening Screening for colon cancer 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, unspecified residential systemic steroid user Pleuritic chest pain Sinusitis Headache Right ankle sprain Ankle pain Chest pain RUQ pain Thyroid nodule Lymphadenopathy Bradycardia Pneumonia Cervical mass BRCA gene positive Chronic idiopathic constipation Post herpetic neuralgia Multinodular thyroid Mixed connective tissue disease [id number] syndrome Lump of left thigh ÁNGELA (obstructive sleep apnea) Insomnia ILD (interstitial lung disease) Sarcoidosis Lung mass Dizziness SOB (shortness of breath) Transaminitis Sarcoidosis Surgical History History of lung surgery History of breast biopsy Hx of abdominoplasty History of laparoscopic adjustable gastric banding History of tubal ligation History of section History of hysterectomy History of cholecystectomy Family History Father Cardiovascular disease Mother Cardiovascular disease Hypertension Thyroid condition Daughter Thyroid condition Rheumatoid arthritis Sister Thyroid condition Brother Rheumatoid arthritis Social History Housing: House Alcohol intake: current Alcohol intake frequency: holidays/special occasions only Patient Tobacco Use Status: Former Tobacco user Quit Date: 20 yrs ago Tobacco use type: Cigarette Years Smoked: 15 years quit about 20 years ago e-Cigarette/Vaping Use: Never Used Second Hand Smoke Exposure: Yes service: No Current occupational status: unemployed Current occupation: rt handed Cognitive needs: No Hearing needs: No Vision needs: Yes Review of Systems Const All systems reviewed & are unremarkable except as noted in HPI and below Reports as per HPI and Reports no additional complaints GI Reports no additional complaints Reports no additional complaints Physical Exam Vital Signs: Last Vital Signs BP 124/78 02/21/23 11:21 BMI result Body Mass Index 39.1 Assessment & Plan Assessment & Plan (1) Cervical mass: Comment: Status post excision Code(s): N88.8 - Other specified noninflammatory disorders of cervix uteri Plan: Discussed with patient the results the pathology, the patient was reassured. All questions answered, the patient verbalized understanding. Coding Level of Care Code Est Pt Level 3 (85842) Diagnoses Cervical mass N88.8
[2023-02-21 11:21] VITALS: BP 124/78; BMI 39.1
== END 2023-02-21 12:05 | disposition home or self-care (01) ==
LOC: HO.HWS 11:00
PROVIDERS: PCP Nurse Practitioner Family; Visit Provider Obstetrics & Gynecology
DX: N88.8 Other specified noninflammatory disorders of cervix uteri (principal)
CPT/HCPCS: 99024

== ENCOUNTER → 2023-02-21 11:00 | Outpatient (BNVA) | payer BC, SELFPAY | PROVIDERS: PCP Nurse Practitioner Family; Visit Provider Obstetrics & Gynecology ==

== ENCOUNTER 2023-04-16 13:51 | Outpatient (REF) | payer BC, SELFPAY ==
--- NOTE | ~2023-04-16 | US_ITS ---
EXAMINATION: US THYROID CLINICAL INFORMATION: Nontoxic multinodular goiter. COMPARISON: CT soft tissue neck 03/12/2022. Thyroid ultrasound 02/13/2022. TECHNIQUE: Linear transducer ramírez-scale and color Doppler examination with attention to the region of the thyroid. FINDINGS: SIZE: Measurements of the thyroid lobes and nodules are given in sagittal, anteroposterior and transverse dimensions respectively. Right Thyroid Lobe: 5.4 x 2.4 x 1.9 cm, volume 12.9 mL. Previously 5.9 x 2 x 1.8 cm, volume 11.1 mL. Parenchyma: The gland echotexture is heterogeneous. Thyroid vascularity is normal. Left Thyroid Lobe: 5.2 x 1.8 x 1.8 cm, volume 8.8 mL. Previously 4.9 x 1.3 x 1.7 cm, volume 5.7 mL. Parenchyma: The gland echotexture is heterogeneous. Thyroid vascularity is normal. Isthmus: 0.4 cm in maximum AP dimension. Previously 0.2 cm. Estimated total number of nodules greater than or equal to 1 cm: 2. Marketing Consultant nodules are described as follows: 1. Location: Right superior. Size: 1.4 x 0.8 x 0.7 cm, volume 0.39 mL. Previously: 1.1 x 0.6 x 0.9 cm, volume 0.30 mL. Nodule characteristics: Composition: Solid (2). Echogenicity: Hypoechoic (2). Shape: Taller than wide (3). Margins: Smooth (0). Echogenic Foci: None (0). ACR TI-RADS total points: 7. Previous: 4. ACR TI-RADS category: 5. Previous: 4. Significant change in size (>/= 20% in 2 dimensions and minimal increase of 2 mm or 50% or greater increase in volume): No. Change in features: No. Change in ACR TI-RADS risk category: No. 2. Location: Right mid. Size: 0.9 x 0.5 x 0.8 cm, volume 0.18 mL. Previously: 1 x 0.5 x 1 cm, volume 0.25 mL. Nodule characteristics: Composition: Solid (2). Echogenicity: Hypoechoic (2). Shape: Not taller than wide (0). Margins: Smooth (0). Echogenic Foci: None (0). ACR TI-RADS total points: 4. Previous: 3. ACR TI-RADS category: 4. Previous: 3. Significant change in size (>/= 20% in 2 dimensions and minimal increase of 2 mm or 50% or greater increase in volume): No. Change in features: Yes. Change in ACR TI-RADS risk category: Yes. 3. Location: Right mid. Size: 0.8 x 0.7 x 0.6 cm, volume 0.17 mL. Previously: 0.7 x 0.5 x 0.6 cm, volume 0.12 mL. Nodule characteristics: Composition: Solid (2). Echogenicity: Cannot be determined (1). Shape: Not taller than wide (0). Margins: Smooth (0). Echogenic Foci: None (0). ACR TI-RADS total points: 3. Previous: 3. ACR TI-RADS category: 3. Previous: 3. Significant change in size (>/= 20% in 2 dimensions and minimal increase of 2 mm or 50% or greater increase in volume): Yes. Change in features: No. Change in ACR TI-RADS risk category: No. 4. Location: Right inferior. Size: 0.9 x 0.9 x 0.8 cm, volume 0.33 mL. Previously: New since the previous study. Nodule characteristics: Composition: Solid (2). Echogenicity: Isoechoic (1). Shape: Not taller than wide (0). Margins: Ill-defined (0). Echogenic Foci: None (0). ACR TI-RADS total points: 3. ACR TI-RADS category: 3. 5. Location: Left mid. Size: 1.2 x 0.7 x 1.1 cm, volume 0.52 mL. Previously: 1.1 x 0.6 x 0.7 cm, volume 0.23 mL. Nodule characteristics: Composition: Solid (2). Echogenicity: Isoechoic (1). Shape: Not taller than wide (0). Margins: Ill-defined (0). Echogenic Foci: None (0). ACR TI-RADS total points: 3. Previous: 3. ACR TI-RADS category: 3. Previous: 3. Significant change in size (>/= 20% in 2 dimensions and minimal increase of 2 mm or 50% or greater increase in volume): Yes. Change in features: No. Change in ACR TI-RADS risk category: No. NODES: No lymphadenopathy is seen in the tissue surrounding the thyroid gland. US/US thyroid IMPRESSION: 1. A 1.4 cm right upper T 5 thyroid nodule meets criteria for biopsy. Correlation with prior biopsy results recommended to determine further management. 2. Multiple additional thyroid nodules for which annual surveillance is recommended. 3. Right inferior 0.9 cm TR3 nodule and left mid 1.2 cm TR3 nodule may alternatively possibly represent pseudonodules within an area of heterogeneous, nodular tissue. ACR TI-RADS RECOMMENDATION REFERENCE: Ultrasound-guided fine-needle aspiration, followup ultrasound, no further followup. * TR1 (0 point) and TR2 (2 points): No FNA or followup. * TR3 (3 points): FNA if more than or equal to 2.5 cm in maximum dimension, followup ultrasound in 1, 3 and 5 years if 1.5 to 2.4 cm in maximum dimension. * TR4 (4-6 points): FNA if more than or equal to 1.5 cm in maximum dimension, follow up ultrasound in 1, 2, 3 and 5 years if 1 to 1.4 cm in maximum dimension. * TR5 (more than or equal to 7 points): FNA if more than or equal to 1 cm in maximum dimension, followup ultrasound every year for 5 years if 0.5 to 0.9 cm in maximum dimension. * TR3, TR4 or TR5 nodules that are below the size threshold for followup receive no followup.
== END 2023-04-16 13:52 | disposition home or self-care (01) ==
LOC: HO.US 13:51
PROVIDERS: PCP Nurse Practitioner Family; Visit Provider Internal Medicine Endocrinology, Diabetes & Metabolism
DX: E04.2 Nontoxic multinodular goiter (principal)
CPT/HCPCS: 76536

== ENCOUNTER 2023-04-24 08:47 | Outpatient (REF) | payer BC, SELFPAY ==
[2023-04-24 09:27] LABS: MANUAL DIFF FLAG NO
[2023-04-24 09:53] LABS: Basophils Percent Auto 0.3 % (0-2); Eosinophils Absolute Auto 0.1 X10*3/uL (0.0-0.4); Eosinophils Percent Auto 1.3 % (0-4); Hematocrit 41.6 % (37.0-47.0); Hemoglobin 13.9 g/dl (12.0-16.0); Imm Gran Abs Auto 0.01 X10*3/uL (0.00-0.03); Imm Gran Pct Auto 0.1 % (0.0-0.4); Lymphocytes Absolute Auto 2.1 X10*3/uL (1.2-4.9); Lymphocytes Percent Auto 31.6 % (20-40); Mean Corpuscular HGB Conc 33.4 g/dl (31.0-35.0); Mean Corpuscular Hemoglobin 30.4 pg (27.0-33.0); Mean Platelet Volume 10.9 fL (9.4-12.3); Monocytes Absolute Auto 0.5 X10*3/uL (0.1-1.2); Neutrophils Percent Auto 58.7 % (45-73); Platelet Count 202 X10*3/uL (160-400); Red Blood Count 4.57 X10*6/uL (4.20-5.50); Red Cell Distribution Width 12.3 % (11.0-16.0); White Blood Count 6.8 X10*3/uL (4.8-10.8)
[2023-04-24 10:25] LABS: Alanine Aminotransferase 12 U/L (0-31); Alkaline Phosphatase 128 U/L (39-117); Anion Gap 12 (12-20); Aspartate Amino Transferase 18 U/L (5-31); Bilirubin Total 0.7 mg/dL (0.0-1.0); Blood Urea Nitrogen 11 mg/dL (9-16); C Reactive Protein 0.11 mg/dL (< or = 0.50); Calcium 8.9 mg/dL (8.4-10.2); Carbon Dioxide 26 mmol/L (22-29); Chloride 108 mmol/L (96-108); Estimated Glomerular Filt Rate > 60; Glucose Random 91 mg/dL (60-115); Sodium 142 mmol/L (135-145); Total Protein 7.3 g/dL (6.5-8.0)
[2023-04-24 10:40] LABS: Erythrocyte Sedimentation Rate 16 MM/HR (0-20)
== END 2023-04-24 08:48 | disposition home or self-care (01) ==
LOC: HO.LAB 08:47
PROVIDERS: PCP Nurse Practitioner Family; Visit Provider Student in an Organized Health Care Education/Training Program
DX: M05.9 Rheumatoid arthritis with rheumatoid factor, unspecified (principal)
CPT/HCPCS: 36415; 80053; 85025; 85652; 86140

== ENCOUNTER 2023-04-25 14:33 | Outpatient (AMB) | payer BC, SELFPAY ==
--- NOTE | 2023-04-25 14:40 | MHC.OFFVIS ---
Intake Vital Signs 04/25/23 14:41 Height 5 ft 2 in Weight 222 lb 3.615 oz BMI 40.6 BP 116/82 Blood Pressure Location Rt brachial Position Sitting Pulse 78 Pulse Source Pulse Oximeter Temp 97.0 F Temp Source Skin Pulse Oximetry (%) 98 Oxygen Delivery Method Room Air Intake Visit Reasons: RA Intake Note: Patient last seen 01/04/23 presents today for follow up and test results. 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 Accompanied by: Self / Same As Patient Allergies levofloxacin Allergy (Severe, Verified 04/25/23 14:44) hives Medication List - Last Reconciled 04/25/23 by Wang Del Toro MD albuterol sulfate 90 mcg/actuation 2 puffs PO Q6H PRN albuterol sulfate 2.5 mg (3 mL) inhalation Q6H PRN biotin 5 mg PO DAILY budesonide 0.5 mg (2 mL) inhalation BID budesonide-formoterol 160-4.5 mcg/actuation 2 puffs PO BID cholecalciferol (vitamin D3) 125 mcg PO DAILY diclofenac sodium 1% (Arthritis Pain (diclofenac)) 4 grams topical QID doxycycline hyclate 100 mg PO BID 10 days duloxetine 30 mg PO DAILY 30 days eszopiclone (Lunesta) 1 mg PO BEDTIME 90 days famotidine 40 mg PO BEDTIME folic acid 1 mg PO DAILY 90 days gabapentin 600 mg PO BEDTIME PRN lidocaine 5% (Lidoderm) 1 patch topical DAILY 30 days mkjvji-hscqgxxq-wgaatug 36,000-114,000- 180,000 unit (Creon) 1 cap PO QID lubiprostone 16 mcg (2 x 8 mcg) PO BID meclizine 25 mg PO TID-QID mecobalamin (vitamin B12) 1,000 mcg sublingual DAILY nebulizers As directed omeprazole 40 mg PO DAILY Orencia ClickJect (abatacept) 125 mg subcut QWEEK NS oxycodone 5 mg PO Q8H PRN 10 days prednisone 10 mg PO DAILY simethicone 180 mg PO QID 30 days HPI HPI Comments History of Present Illness Details 52-year-old female with seropositive RA returns for follow-up. On Orencia weekly and prednisone 10 mg daily. Over the last few months patient had a couple of rounds of COVID and she had to hold the Orencia. But she has been taking the Orencia regularly for the most part since last visit. She states that she feels better overall. Her joint pain is much improved. Improved morning stiffness. Recently she has been having pain on the outside of both hips worse when lying on her side. She feels that Orencia makes her hungry. With regards to her chest pain, she feels it is about the same. Initial history: 51yoF with a history of seropositive RA (RF+++ CCP+++) [facility]. Was last seen by Dr. Conner in 2020. RA was diagnosed in 2014 she was treated by Dr. Carr. She had been on numerous DMARDs including methotrexate, sulfasalazine, Humira, CellCept. She has also been on varying doses of prednisone. In 2018 she had in navigation bronchoscopy with biopsy which showed some findings suspicious for sarcoidcosis. She had another wedge resection biopsy which showed organizing pneumonia, non necrotizing granulomas. She had a cardiac PET scan ordered by Dr. Briggs after a cardiac event in 2020 which did not show features of cardiac sarcoidosis. She was evaluated by Dr. Ricks in [place] and the overall assessment was she does not have classic sarcoidosis. Patient states she was doing relatively well since her open lung biopsy in 2020 until she got COVID about 5 months ago.? Since then patient has been having worsening shortness of breath, chest pain and diffuse pain.? She has pain everywhere.? She has pain in her joints as well as her muscles.? She has morning stiffness of her joints lasting at least 1 hour every day.? She is no longer on prednisone.? She was prescribed hydroxychloroquine [address] Briggs 2 months ago with equivocal benefit. She states that recently she has been anxious and thinking about many things. States that this has affected her memory. 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 Pleuritic chest pain Sinusitis Headache Right ankle sprain Ankle pain Chest pain RUQ pain Thyroid nodule Lymphadenopathy Bradycardia Pneumonia Cervical mass BRCA gene positive Chronic idiopathic constipation Post herpetic neuralgia Multinodular thyroid 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 Lump of left thigh ÁNGELA (obstructive sleep apnea) Insomnia ILD (interstitial lung disease) Sarcoidosis Lung mass Dizziness SOB (shortness of breath) Transaminitis Sarcoidosis Surgical History History of lung surgery History of breast biopsy Hx of abdominoplasty History of laparoscopic adjustable gastric banding History of tubal ligation History of section History of hysterectomy History of cholecystectomy Family History Father Cardiovascular disease Mother Cardiovascular disease Hypertension Thyroid condition Daughter Thyroid condition Rheumatoid arthritis Sister Thyroid condition Brother Rheumatoid arthritis Social History Housing: House Alcohol intake: current Alcohol intake frequency: holidays/special occasions only Patient Tobacco Use Status: Former Tobacco user Quit Date: 20 yrs ago Tobacco use type: Cigarette Years Smoked: 15 years quit about 20 years ago e-Cigarette/Vaping Use: Never Used Second Hand Smoke Exposure: Yes service: No Current occupational status: unemployed Current occupation: rt handed Cognitive needs: No Hearing needs: No Vision needs: Yes Review of Systems Card Reports chest pain Musc Reports arthralgias Physical Exam Vital Signs: Last Vital Signs Temp 97.0 F 04/25/23 14:41 BMI result Body Mass Index 40.6 Const General: cooperative and healthy appearing Nutritional Appearance: obese morbidly obese Orientation/consciousness: patient oriented x3 (Oriented x4) Limitations: no limitations HEENT Head: Yes normocephalic and Yes atraumatic Mouth: moist mucous membranes Resp Effort & Inspection: normal respiratory effort and able to speak in complete sentences Cardio Rate: regular rate Rhythm: regular rhythm Heart sounds: S1 normal heart sound present and S2 normal heart sound present GI Inspection: No distended Palpation (GI): Soft to palpation and nontender Skin General skin exam: no rashes or lesions noted Neuro General: patient oriented x3 (Oriented x4) Extrem Other: Bilateral minimally tender wrists Right wrist pain with flexion and extension Z deformity of both thumbs Left 2nd MCP tenderness without swelling Left 2nd through 5th PIP and DIP tenderness Few tender PIP is an DIPs right hand No knee pain with flexion and extension No ankle tenderness bilaterally Bilateral trochanteric bursa area tenderness with negative Nayan's test Diffuse fibromyalgia tender points Normal nailfold capillaroscopy Results Reviewed Results Reviewed: Open lung biopsy in [address]. [address] Briggs note: All the biopsies demonstrated organizing pneumonia, non-necrotizing granulomas in addition to his lipid deposits.? However distribution does not suggest aspiration but if not inhalation.? The patient has never great.? 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 and is likely that some of the lip inhalation has been from the patient.? My suspicion is that the findings of the biopsy MO consistent with an inflammatory process due to her connective tissue and is not due to sarcoidosis 12/26/2018 Pathology A.lung, right upper lobe mass core for tumor: Benign lung parenchyma with nonnecrotizing granulomas and chronic inflammation. Special stains GMS: Negative for fungal organisms. AFB: Negative for acid-fast bacilli, Elastic: Negative for vasculitis control stains appropriately. Note: Differential diagnosis may include: Sarcoidosis, infection, and autoimmune process. Please clinically correlate if the material is airport representative of the area of interest. B. Lung, right middle lobe mass core for tumor: Nondiagnostic. Predominantly blood and scant benign lung epithelium. Immunohistochemistry: TTF-1: Highlights th to scant strips of lung epithelium. CD 68: Negative. Control stains appropriately. 12/26/2018 FNA cytology A. Lung, right upper lobe, fine-needle aspiration: Cytology and cell block: Negative for malignant cells benign alveolar tissue with granulomatous inflammation and fibrosis. Histochemical stains: Acid-fast: Negative for Mycobacterium. GMS: Negative for fungi. PAS?F: Negative for fungi. Controls: Appropriate. B.lung, right middle lobe, fine-needle aspiration: Cytology and cell block: Negative for malignant cells. Benign alveolar tissue with granulomatous inflammation and fibrosis. Histochemical stains: Acid-fast: Negative for Mycobacterium. GMS: Negative for fungi. PAS?F: Negative for fungi. Controls are: Appropriate. 12/26/2018 cytopathology report bronchial washings A. Lung, right upper lobe, bronchial washings: Cytology and cellblock: Negative for malignant cells granulomatous and chronic inflammation. See supplemental report for results of stains for microorganisms. Mycobacterial stains: Immune histology and Ziehl-Neelsen negative. GMS stain negative for fungi B. Lung, right middle lobe, bronchial washings: Cytology and cell block: Negative for blood and cells. Chronic inflammation. See [id number] and [id number]. Assessment & Plan Assessment & Plan (1) Seropositive rheumatoid arthritis: Comment: +++RF+++CCP Onset early 2014. SSZ started 02/15 - stopped due diarrhea MTX taken briefly 2015- May 2015? MTX restarted 07/18- changed to SC Dec 2016 due to nausea Humira added 02/18 to methotrexate. Both stopped 04/22 due to infection. Humira was suspected to have caused lung issues (?drug induced sarcoid) MTX and Humira remained held 03/23 04/23: Cellcept started by pulmonary - GI side effects, confusion so it was stopped 07/21 methotrexate and Humira restarted stopped sometime in 2020 Imuran briefly, not sure what happened with that 2020 Orencia attempted got denied. Approved 07/2022, started 01/2023 effective Code(s): M05.9 - Rheumatoid arthritis with rheumatoid factor, unspecified Plan: 52-year-old female with seropositive RA returns for follow-up. There has been a question of sarcoidosis. In 2018 she had in navigation bronchoscopy with biopsy which showed some findings suspicious for sarcoidosis.? In 2020, She had wedge resection biopsy which showed organizing pneumonia, non necrotizing granulomas.? She had a cardiac PET scan in 2020 which did not show features of cardiac sarcoidosis.? She was evaluated by Dr. Ricks in [place] and the overall assessment was she does not have classic sarcoidosis. At this point seropositive RA seems to be a unifying diagnosis for her inflammatory arthritis, ILD. Orencia was started 3 months ago with significant improvement in her arthritic symptoms. She continues to have chest pain however likely related to her lung mass. She remains on prednisone 10 mg daily. Prescribed by Pulmonary. Consider tapering Continue with Orencia 125 mg weekly Patient will make an appointment with Dr. Briggs soon. Will follow-up repeat CT chest. If patient continues to have enlarging mass, I agree with Dr. Briggs that a referral to [facility] would be helpful Labs before next visit in 3 months (2) Greater trochanteric bursitis of both hips: Code(s): M70.61 - Trochanteric bursitis, right hip; M70.62 - Trochanteric bursitis, left hip Plan: Provide patient with a printout of home exercises. If not improving, can consider physical therapy referral or steroid injection Plan I spent 25 minutes reviewing patient's chart, evaluating patient, ordering diagnostic workup, counseling patient and documenting in the chart Orders: Orders Complete Blood Count Auto Diff 3 Months M05.9 - Rheumatoid arthritis with rheumatoid factor, unspecified Comprehensive Met. Panel 3 Months M05.9 - Rheumatoid arthritis with rheumatoid factor, unspecified C Reactive Protein 3 Months M05.9 - Rheumatoid arthritis with rheumatoid factor, unspecified Erythrocyte Sedimentation Rate 3 Months M05.9 - Rheumatoid arthritis with rheumatoid factor, unspecified Medications: Changed From prednisone 20 mg (2 x 10 mg) PO DAILY 30 days 60 tabs 5RF To prednisone 10 mg PO DAILY Coding Level of Care Code Est Pt Level 4 (24647) Diagnoses Seropositive rheumatoid arthritis M05.9 Greater trochanteric bursitis of both hips M70.61; M70.62
[2023-04-25 14:41] VITALS: BP 116/82; PULSE 78; TEMP 36.1; O2SAT 98; BMI 40.6
== END 2023-04-25 15:05 | disposition home or self-care (01) ==
PROVIDERS: PCP Nurse Practitioner Family; Visit Provider Student in an Organized Health Care Education/Training Program
DX: M05.79 Rheumatoid arthritis with rheumatoid factor of multiple sites without organ or systems involvement (principal); M70.61 Trochanteric bursitis, right hip; M70.62 Trochanteric bursitis, left hip
CPT/HCPCS: 99214

== ENCOUNTER → 2023-04-25 14:33 | Outpatient (BNVA) | payer BC, SELFPAY | PROVIDERS: PCP Nurse Practitioner Family; Visit Provider Student in an Organized Health Care Education/Training Program ==

== ENCOUNTER 2023-05-23 12:38 | Outpatient (AMB) | payer BC, SELFPAY ==
--- NOTE | 2023-05-23 12:43 | A.OFFVIS_ITS ---
Intake Vital Signs 05/23/23 12:51 Height 5 ft 2 in Weight 216 lb 0.848 oz BMI 39.5 BP 121/62 Blood Pressure Location Lt radial Position Sitting Pulse 70 Intake Visit Reasons: 6 MNTH F/U Intake Note: Marisabel presents in the office as a 6 month follow up. CC: no concerns at this time. Allergies levofloxacin Allergy (Severe, Verified 05/23/23 12:51) hives HPI 6 MNTH F/U HPI Details Assessment & Plan (1) Tubular adenoma of colon: Comment: 2022=Large TA's repeat 3 years Code(s): D12.6 - Benign neoplasm of colon, unspecified Plan: The procedure needs to be repeated in 3 years r/t the size of the polyps. The procedure was well tolerated. The results were explained and the patient is agreeable to the follow-up interval as stated. She was a bit constipated after the procedure but she is utilizing her Amitiza and she does not feel she needs any extra help. Education was provided to tell any 1st degree relatives about their findings to be sure that they are screened by age 45. Educated that they will be put on a recall list when it is time for their repeat scope but should they move out of state or away from the hospital they will need to remember along with their primary to repeat the procedure in a timely fashion to avoid any adverse complications. She continues on her omeprazole and her famotidine with good control of her GERD. Her Amitiza is 16 mcg b.i.d.. ROV 6 mos. (2) GERD (gastroesophageal reflux diseas e): Code(s): K21.9 - Gastro-esophageal reflux disease without esophagitis (3) Irritable bowel syndrome with both c onstipation and diarrhea: Code(s): K58.2 - Mixed irritable bowel syndrome TODAY'S VISIT She continues on her omeprazole and her famotidine with good control of her GERD. Her Amitiza is 16 mcg b.i.d. and this along with her Creon controls her irritable bowel. She has changed her diet to eat less carbs, no sugar, no coffee, and she is counting calories as well. She is drinking a protein drink form [employer] that is helping her. With this she is satisfied with her GI regimen. 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 Pleuritic chest pain Sinusitis Headache Right ankle sprain Ankle pain Chest pain RUQ pain Thyroid nodule Lymphadenopathy Bradycardia Pneumonia Cervical mass BRCA gene positive Chronic idiopathic constipation Post herpetic neuralgia Multinodular thyroid Mixed connective tissue disease [id number] syndrome Lump of left thigh ÁNGELA (obstructive sleep apnea) Insomnia ILD (interstitial lung disease) Sarcoidosis Lung mass Dizziness SOB (shortness of breath) Transaminitis Sarcoidosis Surgical History (Updated 05/23/23 @ 12:52 by IDALMIS Canchola) History of removal of ovarian cyst History of lung surgery History of breast biopsy Hx of abdominoplasty History of laparoscopic adjustable gastric banding History of tubal ligation History of section History of hysterectomy History of cholecystectomy Family History Father Cardiovascular disease Mother Cardiovascular disease Hypertension Thyroid condition Daughter Thyroid condition Rheumatoid arthritis Sister Thyroid condition Brother Rheumatoid arthritis Social History Housing: House Alcohol intake: current Alcohol intake frequency: holidays/special occasions only Patient Tobacco Use Status: Former Tobacco user Quit Date: 20 yrs ago Tobacco use type: Cigarette Years Smoked: 15 years quit about 20 years ago e-Cigarette/Vaping Use: Never Used Second Hand Smoke Exposure: Yes service: No Current occupational status: unemployed Current occupation: rt handed Cognitive needs: No Hearing needs: No Vision needs: Yes Review of Systems Const Denies fatigue, Denies fever(s), Denies night sweats, Denies poor appetite and Denies weight loss Eyes Details: glasses Reports requires corrective lenses ENT Reports Normal hearing present, Denies dental pain, Denies dysphagia, Denies hearing loss, Denies mouth pain, Denies odynophagia, Denies throat swelling, Denies tongue swelling and Reports other (Dentition adequate) Card Reports no additional complaints Resp Reports no additional complaints GI Details: Denies abdominal pain, Denies melena, Reports bloating, Denies hematochezia, Reports constipation, Denies GI cramping, Denies dysphagia, Denies excessive flatus, Denies early satiety, Reports heartburn, Denies diarrhea, Denies nausea, Denies odynophagia, Denies vomiting and Denies hematemesis Skin/Breast Denies pruritus, Denies lesions, Denies rash and Denies jaundice Neuro Reports Normal hearing present and Denies Abnormal speech present Endo Denies fatigue Aller/Immun Denies throat swelling and Denies tongue swelling Physical Exam Vital Signs: Last Vital Signs Pulse 70 05/23/23 12:51 BP 121/62 05/23/23 12:51 BMI result Body Mass Index 39.5 Const General: cooperative, no acute distress, well developed and well groomed Nutritional Appearance: well nourished and obese Orientation/consciousness: oriented to person, oriented to place and oriented to time Limitations: No language barrier HEENT Head: Yes normocephalic and Yes atraumatic Eyes General: appearance normal, both eyes and all related structures Pupils: Equal, round and reactive pupils present Neck Neck: Yes normal visual inspection and Yes no lymphadenopathy Thyroid: Thyroid normal Resp Effort & Inspection: normal respiratory effort and able to speak in complete sentences Auscultation: clear to auscultation bilaterally Cardio Rate: regular rate Rhythm: regular rhythm Heart sounds: Normal, physiologic split S2 sound present Peripheral pulses: radial pulses present and posterior tibial pulses present GI Inspection: No distended, Yes Abdominal panniculus present and Yes obesity Palpation (GI): Soft to palpation, nontender, no guarding, not rigid and No he patosplenomegaly present Percussion: Yes normal to percussion Auscultation: normal bowel sounds Rectal Exam - Female: deferred Skin General skin exam: no rashes or lesions noted, turgor normal, skin not dry, no jaundice, No spider nevi and no striae Rashes: no rashes Nails: normal Neuro General: oriented to person, oriented to place and oriented to time Cranial nerves: Yes Equal, round and reactive pupils present and Yes Normal hearing present Speech: No Abnormal speech present Extrem General: Yes normal to inspection, No clubbing, No cyanosis and No edema Psych Appearance: grossly normal and well kempt Mental Status: mental status grossly normal Speech and movement: Normal speech and movement present Affect: normal affect Attitude: cooperative Thought process: Normal thought process present and not confabulating Thought content: Normal thought content present Insight: Fair insight present (Psych) and Limited insight present (Psych) Judgement: Fair judgement present (Psych) and Limited judgement present (Psych) Assessment & Plan Assessment & Plan (1) GERD (gastroesophageal reflux disease): Code(s): K21.9 - Gastro-esophageal reflux disease without esophagitis (2) Irritable bowel syndrome with both constipation and diarrhea: Code(s): K58.2 - Mixed irritable bowel syndrome Plan She continues on her omeprazole and her famotidine with good control of her GERD. Her Amitiza is 16 mcg b.i.d. and this along with her Creon controls her irritable bowel. She has changed her diet to eat less carbs, no sugar, no coffee, and she is counting calories as well. She is drinking a protein drink form [employer] that is helping her. With this she is satisfied with her GI regimen. Return office visit in 6 months Medications: Refilled [id number]-[id number]-[id number] 36,000-114,000- 180,000 unit (Creon) administer with meals and/or snacks 1 cap PO QID 120 caps 3RF simethicone after meals 180 mg PO QID 30 days 120 caps 3RF lubiprostone 16 mcg (2 x 8 mcg) PO BID 360 caps 1RF K58.2 - Mixed irritable bowel syndrome famotidine 40 mg PO BEDTIME 90 tabs 2RF omeprazole 40 mg PO DAILY 90 caps 2RF Coding Level of Care Code Est Pt Level 3 (20160) Diagnoses GERD (gastroesophageal reflux disease) K21.9 Irritable bowel syndrome with both constipation and diarrhea K58.2
[2023-05-23 12:51] VITALS: BP 121/62; PULSE 70; BMI 39.5
== END 2023-05-23 13:19 | disposition home or self-care (01) ==
PROVIDERS: PCP Nurse Practitioner Family; Visit Provider Nurse Practitioner
DX: K21.9 Gastro-esophageal reflux disease without esophagitis (principal); K58.2 Mixed irritable bowel syndrome
CPT/HCPCS: 99213

== ENCOUNTER → 2023-05-23 12:38 | Outpatient (BNVA) | payer BC, SELFPAY | PROVIDERS: PCP Nurse Practitioner Family; Visit Provider Nurse Practitioner ==

== ENCOUNTER 2023-05-27 11:21 | Outpatient (AMB) | payer BC, SELFPAY ==
--- NOTE | 2023-05-27 11:23 | A.OFFVIS_ITS ---
Intake Vital Signs 05/27/23 11:24 Height 5 ft 2 in Weight 223 lb 8.78 oz BMI 40.9 BP 102/82 Blood Pressure Location Lt brachial Position Sitting Pulse 83 Pulse Source Pulse Oximeter Intake Visit Reasons: F/Up NTMNG-confirmed Intake Note: Patient presents today fro NTMNG follow up, last seen by Dr. Price on 05/24/2022. 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 Accompanied by: Self / Same As Patient Allergies levofloxacin Allergy (Severe, Verified 05/27/23 11:33) hives Medication List - Last Reconciled 05/27/23 by Terence Jimenez MD albuterol sulfate 90 mcg/actuation 2 puffs PO Q6H PRN albuterol sulfate 2.5 mg (3 mL) inhalation Q6H PRN biotin 5 mg PO DAILY budesonide 0.5 mg (2 mL) inhalation BID budesonide-formoterol 160-4.5 mcg/actuation 2 puffs PO BID cholecalciferol (vitamin D3) 125 mcg PO DAILY diclofenac sodium 1% (Arthritis Pain (diclofenac)) 4 grams topical QID doxycycline hyclate 100 mg PO BID 10 days duloxetine 30 mg PO DAILY 30 days eszopiclone (Lunesta) 1 mg PO BEDTIME 90 days famotidine 40 mg PO BEDTIME folic acid 1 mg PO DAILY 90 days gabapentin 600 mg PO BEDTIME PRN lidocaine 5% (Lidoderm) 1 patch topical DAILY 30 days wtvonk-qqgaqvlg-ducyobb 36,000-114,000- 180,000 unit (Creon) 1 cap PO QID lubiprostone 16 mcg (2 x 8 mcg) PO BID meclizine 25 mg PO TID-QID mecobalamin (vitamin B12) 1,000 mcg sublingual DAILY nebulizers As directed omeprazole 40 mg PO DAILY Orencia ClickJect (abatacept) 125 mg subcut QWEEK NS oxycodone 5 mg PO Q8H PRN 10 days prednisone 10 mg PO DAILY simethicone 180 mg PO QID 30 days HPI HPI Comments History of Present Illness Details 53 YO F with PMHx Multinodular thyroid, mixed connective tissue disease who is seen in consultation for multinodular thyroid at the request of PCP. Was initially diagnosed with multinodular thyroid in 2021 with thyroid US revealing multiple bilateral nodules. She underwent FNA biopsy 05/10/2022 of her RMP 1.0 cm and her RUP 1.1 cm thyroid nodules both with benign cytology. She presents today to review these results. She does complain of compressive symptoms with dysphagia and hoarseness of voice. She is saw endocrine surgeon who felt her symptoms were not related to her goiter She underwent a CT of the neck which revealed no obvious mass effect. She was noted to have an opacity in the upper mediastinum which she is already following with Pulmonology for. She mentions occasional palpitations and anxiety. Complains of weight gain. Otherwise denies any symptoms of hyper or hypothyroidism. Denies any history of head or neck irradiation. Denies any family history of thyroid cancer. She has a family history of thyroid disease with Grave's disease in her Daughter, and Emily's disease in her Mother and Sister. Thyroid US: 02/13/2022 Right Thyroid Lobe: 5.9 x 2.0 x 1.8 cm, volume 11.1 mL. Parenchyma: The gland echotexture is heterogeneous. Thyroid vascularity is increased. Left Thyroid Lobe: 4.9 x 1.3 x 1.7 cm, volume 5.7 mL. Parenchyma: The gland echotexture is heterogeneous. Thyroid vascularity is increased. Isthmus: 0.2 cm in maximum AP dimension. Estimated total number of nodules greater than or equal to 1 cm: 2. 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 Location: Right upper. ?? ? Size: 1.1 x 0.6 x 0.9 cm, volume 0.3 mL. ?? ? Nodule characteristics: ?? ? Composition: Solid (2). ?? ? Echogenicity: Hypoechoic (2). ?? ? Shape: Not taller than wide (0). ?? ? Margins: Smooth (0). ?? ? Echogenic Foci: None (0). ?? ? ACR TI-RADS total points: 4 ?? ? ACR TI-RADS category: 4 2. Location: Right midpole. ?? ? Size: 1.0 x 1.0 x 0.5 cm, volume 0.3 mL. ?? ? Nodule characteristics: ?? ? Composition: Solid (2). ?? ? Echogenicity: Isoechoic (1). ?? ? Shape: Not taller than wide (0). ?? ? Margins: Ill-defined (0). ?? ? Echogenic Foci: None (0). ?? ? ACR TI-RADS total points: 3 ?? ? ACR TI-RADS category: 3 3. Location: Right midpole. ?? ? Size: 0.7 x 0.5 x 0.6 cm, volume 0.1 mL. ?? ? Nodule characteristics: ?? ? Composition: Solid (2). ?? ? Echogenicity: Isoechoic (1). ?? ? Shape: Not taller than wide (0). ?? ? Margins: Smooth (0). ?? ? Echogenic Foci: None (0). ?? ? ACR TI-RADS total points: 3 ?? ? ACR TI-RADS category: 3 4. Location: Left midpole. ?? ? Size: 1.1 x 0.6 x 0.7 cm, volume 0.2 mL. ?? ? Nodule characteristics: ?? ? Composition: Solid (2). ?? ? Echogenicity: Isoechoic (1). ?? ? Shape: Not taller than wide (0). ?? ? Margins: Smooth (0). ?? ? Echogenic Foci: None (0). ?? ? ACR TI-RADS total points: 3 ?? ? ACR TI-RADS category: 3 NODES: A 1.1 x 0.6 x 0.7 cm right cervical node which maintains normal hilar architecture and is not pathologically enlarged. CT Neck: 03/12/2022 FINDINGS: The thyroid gland is slightly prominent with heterogenous attenuation. No large discrete nodules are demonstrated on this noncontrast CT scan. There is no cervical lymphadenopathy; there are mildly prominent lymph nodes at multiple levels in the neck bilaterally. The parotid glands are homogeneous in attenuation. The submandibular glands are normal. No contour abnormality is seen within the oral cavity or pharyngeal mucosal space. The laryngeal structures are normal. The parapharyngeal fat is preserved. There is no atheromatous calcification. No extra mucosal soft tissue mass or fluid collection is seen. No retropharyngeal fluid collection is seen. The superior mediastinum is unremarkable. There is opacification in the right upper lobe which is irregular and is incompletely visualized. There are multiple small nodular opacities around this area. The mastoid air cells are well-aerated. There is a retention cyst in the left maxillary sinus. There are moderate spondylitic changes in the mid and lower cervical spine. The temporomandibular joints are normal. No periapical disease is identified. The imaged portions of the brain parenchyma are unremarkable. 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 Pleuritic chest pain Sinusitis Headache Right ankle sprain Ankle pain Chest pain RUQ pain Thyroid nodule Lymphadenopathy Bradycardia Pneumonia Cervical mass BRCA gene positive Chronic idiopathic constipation Post herpetic neuralgia Multinodular thyroid Mixed connective tissue disease [id number] syndrome Lump of left thigh ÁNGELA (obstructive sleep apnea) Insomnia ILD (interstitial lung disease) Sarcoidosis Lung mass Dizziness SOB (shortness of breath) Transaminitis Sarcoidosis Surgical History History of removal of ovarian cyst History of lung surgery History of breast biopsy Hx of abdominoplasty History of laparoscopic adjustable gastric banding History of tubal ligation History of section History of hysterectomy History of cholecystectomy Family History Father Cardiovascular disease Mother Cardiovascular disease Hypertension Thyroid condition Daughter Thyroid condition Rheumatoid arthritis Sister Thyroid condition Brother Rheumatoid arthritis Social History Housing: House Alcohol intake: current Alcohol intake frequency: holidays/special occasions only Patient Tobacco Use Status: Former Tobacco user Quit Date: 20 yrs ago Tobacco use type: Cigarette Years Smoked: 15 years quit about 20 years ago e-Cigarette/Vaping Use: Never Used Second Hand Smoke Exposure: Yes service: No Current occupational status: unemployed Current occupation: rt handed Cognitive needs: No Hearing needs: No Vision needs: Yes Physical Exam Vital Signs: Last Vital Signs Pulse 83 05/27/23 11:24 BP 102/82 05/27/23 11:24 BMI result Body Mass Index 40.9 Const Other: Thyroid gland is normal size weighs by 15 g. There are no thyroid nodules palpable Assessment & Plan Assessment & Plan (1) Multinodular thyroid: Code(s): E04.2 - Nontoxic multinodular goiter Plan: This 53-year-old female with a history of multinodular goiter. She underwent FNA biopsy 05/10/2022 of her RMP 1.0 cm and her RUP 1.1 cm thyroid nodules both with benign cytology. Recent thyroid ultrasound showed no change in the size of the nodules. She appears to be clinically euthyroid. Plan is to recheck TSH and free T4. Assuming above is normal, patient can follow up with the primary care provider could order a thyroid ultrasound about 1-2 years time. If there is any change in the size or characteristics of the nodules, the patient referred back to endocrinology Coding Level of Care Code Est Pt Level 3 (06115) Diagnoses Multinodular thyroid E04.2
[2023-05-27 11:24] VITALS: BP 102/82; PULSE 83; BMI 40.9
== END 2023-05-27 11:40 | disposition home or self-care (01) ==
PROVIDERS: PCP Internal Medicine; Visit Provider Internal Medicine Endocrinology, Diabetes & Metabolism
DX: E04.2 Nontoxic multinodular goiter (principal)
CPT/HCPCS: 99213

== ENCOUNTER → 2023-05-27 11:21 | Outpatient (BNVA) | payer BC, SELFPAY | PROVIDERS: Visit Provider Internal Medicine Endocrinology, Diabetes & Metabolism ==

== ENCOUNTER 2023-06-13 13:25 | Outpatient (AMB) | payer BC, SELFPAY ==
--- NOTE | 2023-06-13 13:32 | A.OFFPC_ITS ---
Vital Signs 06/13/23 13:33 Height 5 ft 2 in Weight 216 lb 6 oz BMI 39.6 BP 100/74 Blood Pressure Location Lt brachial Position Sitting Pulse 74 Pulse Source Pulse Oximeter Pulse Oximetry (%) 95 Oxygen Delivery Method Room Air Intake Visit Reasons: RA f/u Intake Note: Patient is here to follow up on RA. 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 Required: No Solution Specialist: Not Required per policy Accompanied by: Self / Same As Patient Allergies levofloxacin Allergy (Severe, Verified 06/13/23 14:23) hives Medication List - Last Reconciled 06/13/23 by Royce Wild MD albuterol sulfate 90 mcg/actuation 2 puffs PO Q6H PRN albuterol sulfate 2.5 mg (3 mL) inhalation Q6H PRN biotin 5 mg PO DAILY budesonide 0.5 mg (2 mL) inhalation BID budesonide-formoterol 160-4.5 mcg/actuation 2 puffs PO BID cholecalciferol (vitamin D3) 125 mcg PO DAILY diclofenac sodium 1% (Arthritis Pain (diclofenac)) 4 grams topical QID duloxetine 30 mg PO DAILY 30 days eszopiclone (Lunesta) 1 mg PO BEDTIME 90 days famotidine 40 mg PO BEDTIME folic acid 1 mg PO DAILY 90 days gabapentin 600 mg PO BEDTIME PRN lidocaine 5% (Lidoderm) 1 patch topical DAILY 30 days dmaocw-stodhgij-zpjjlgr 36,000-114,000- 180,000 unit (Creon) 1 cap PO QID lubiprostone 16 mcg (2 x 8 mcg) PO BID meclizine 25 mg PO TID-QID mecobalamin (vitamin B12) 1,000 mcg sublingual DAILY nebulizers As directed omeprazole 40 mg PO DAILY Orencia ClickJect (abatacept) 125 mg subcut QWEEK NS oxycodone 5 mg PO Q8H PRN 10 days prednisone 10 mg PO DAILY simethicone 180 mg PO QID 30 days Tobacco use date assessed: 06/13/23 Dental Screening Dental Screen Date: 06/13/23 Did you have a dental visit in the last 12 months?: Yes Did you have a dental problem in the last 6 months where you did not have access to dental care?: No Was dental information given to patient?: Patient has dentist HPI RA f/u HPI Details 53-year-old female presents to the offic e to discuss her chronic medical conditions. I will be assuming her care as her provider has left the practice. Patient gives history of obesity, seropositive rheumatoid arthritis, sarcoidosis, COPD and lung nodules. In addition she has thyroid nodules, they have been biopsied. Patient has had 2 weight loss surgeries. She would like to lose further weight and diet options have not helped. She is tried the Mediterranean, anti- inflammatory diet with little response. She would like to reach her optimal weight of 180 lb. She is reporting morning stiffness and feeling fatigue because of the excess weight. 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 Pleuritic chest pain Sinusitis Headache Right ankle sprain Ankle pain Chest pain RUQ pain Thyroid nodule Lymphadenopathy Bradycardia Pneumonia Cervical mass BRCA gene positive Chronic idiopathic constipation Post herpetic neuralgia Multinodular thyroid Mixed connective tissue disease [id number] syndrome Lump of left thigh ÁNGELA (obstructive sleep apnea) Insomnia ILD (interstitial lung disease) Sarcoidosis Lung mass Dizziness SOB (shortness of breath) Transaminitis Sarcoidosis Surgical History History of removal of ovarian cyst History of lung surgery History of breast biopsy Hx of abdominoplasty History of laparoscopic adjustable gastric banding History of tubal ligation History of section History of hysterectomy History of cholecystectomy Family History Father Cardiovascular disease Mother Cardiovascular disease Hypertension Thyroid condition Daughter Thyroid condition Rheumatoid arthritis Sister Thyroid condition Brother Rheumatoid arthritis Social History Housing: House Alcohol intake: current Alcohol intake frequency: holidays/special occasions only Patient Tobacco Use Status: Former Tobacco user Quit Date: 20 yrs ago Tobacco use type: Cigarette Years Smoked: 15 years quit about 20 years ago e-Cigarette/Vaping Use: Never Used Second Hand Smoke Exposure: Yes service: No Current occupational status: unemployed Current occupation: rt handed Cognitive needs: No Hearing needs: No Vision needs: Yes (Glasses) Questionnaire PHQ-9 Over the last 2 weeks, how often have you been bothered by any of the following problems? 1. Little interest or pleasure in doing things: not at all 2. Feeling down, depressed, or hopeless: not at all 3. Trouble falling or staying asleep, or sleeping too much: not at all 4. Feeling tired or having little energy: not at all 5. Poor appetite or overeating: not at all 6. Feeling bad about yourself - or that you are a failure or have let yourself or your family down: not at all 7. Trouble concentrating on things, such as reading the newspaper or watching television: not at all 8. Moving or speaking so slowly that other people could have noticed. Or the opposite - being so fidgety or restless that you have been moving around a lot more than usual: not at all 9. Thoughts that you would be better off or of hurting yourself in some way: not at all Total score: 0 Depression Screening Interpretation: Negative Depression Screening Done: Yes Source: Developed by Drs. Terence Diaz, Leila Hawk, Jani Osborn and colleagues, with an educational ashley from [employer]. Thrive Questionnaire Date Thrive assessed: 06/13/23 I am a: Patient What is your living situation today?: I have a steady place to live Within the past 12 months, did the food you bought not last and you didn't have the money to get more?: Never true Within the past 12 months, did you worry whether your food would run out before you got money to buy more?: Never true Do you have trouble paying for medicines?: No Do you have trouble getting transportation to medical appointments?: No Do you have trouble paying your heating and electricity bill?: No Do you have trouble taking care of your child, family member or friend?: No Do you have trouble with day-to-day activities such as bathing, preparing meals, shopping, managing finances, etc.?: No Are you currently unemployed and looking for a job?: No Are you interested in more education?: No Currently or been in a relationship where the following occur: no concerns repor shana THRIVE Score: 0 AUDIT C Alcohol Use Questionnaire (AUDIT-C) 1. How often do you have a drink containing alcohol?: Never Total Score: 0 YENNI-7 AMB Questionnaire YENNI-7 Date YENNI - 7 assessed: 06/13/23 Feeling nervous, anxious, or on edge: 0 = Not at all Not being able to stop or control worryin = Not at all Worrying too much about different things: 0 = Not at all Trouble relaxin = Not at all Being so restless that it is hard to sit still: 0 = Not at all Becoming easily annoyed or irritable: 0 = Not at all Feeling afraid as if something awful might happen: 0 = Not at all Total YENNI-7 score (0-4 normal; 5-9 mild; 10-14 moderate; 15-21 severe): 0 Source: Developed by Drs. Terence Diaz, Leila Hawk, Jani Osborn and colleagues, with an educational ashley from [employer]. Physical exam (Primary Care) Vital Signs: Last Vital Signs Pulse 74 06/13/23 13:33 BP 100/74 06/13/23 13:33 Pulse Ox 95 06/13/23 13:33 Oxygen Delivery Method Room Air 06/13/23 13:33 Care Plan Goal for BP management: Blood pressure is in range. BMI result Body Mass Index 39.6 BMI Assessment/Plan discussion: High (Ozempic to be considered.) Tobacco/Smoking Status: Tobacco use Status Tobacco use date assessed 06/13/23 06/13/23 13:39 Patient Tobacco Use Status Former Tobacco user 06/13/23 13:39 Tobacco use type Cigarette 06/13/23 13:39 e-Cigarette/Vaping Use Never Used 06/13/23 13:39 Are you ready to quit: No PHQ-9: PHQ-9 Score PHQ-9: Total score 0 06/13/23 13:39 Depression Screening Interpretation: Negative Thrive Assessment: Date of Thrive Assessment Date Thrive assessed 06/13/23 06/13/23 13:39 Currently or been in a relationship where the following occur: no concerns reported Const General: cooperative and healthy appearing Nutritional Appearance: well nourished Orientation/consciousness: patient oriented x3 Limitations: no limitations HENMT Head: Yes normal to inspection Eyes General: appearance normal, both eyes and all related structures Neck Neck: Yes normal visual inspection Chest Chest palpation & inspection: normal palpation of entire chest wall Resp Effort & Inspection: normal respiratory effort Neuro General: patient oriented x3 Assessment and Plan Assessment & Plan (1) Class 2 severe obesity with body mass index (BMI) of 35 to 39.9 with serious comorbidity: Code(s): E66.01 - Morbid (severe) obesity due to excess calories Plan: 20 minutes spent discussing this condition. Additional time spent on reviewing the records from the burr machine operator. Patient would benefit from the use of weight loss medications like Ozempic. She has history of active rheumatoid arthritis and is on prednisone often. An opinion from the ice maker and burr machine operator will be obtained prior to initiating the therapy. Medications: Refilled folic acid 1 mg PO DAILY 90 tabs 11RF 90 days cholecalciferol (vitamin D3) 125 mcg PO DAILY 30 caps 6RF Coding Level of Care Code Est Pt Level 4 (55421) Diagnoses Class 2 severe obesity with body mass index (BMI) of 35 to 39.9 with serious comorbidity E66.01
[2023-06-13 13:33] VITALS: BP 100/74; PULSE 74; O2SAT 95; BMI 39.6
== END 2023-06-13 15:19 | disposition home or self-care (01) ==
PROVIDERS: PCP Nurse Practitioner Family; Visit Provider Internal Medicine
DX: M05.9 Rheumatoid arthritis with rheumatoid factor, unspecified (principal); E66.01 Morbid (severe) obesity due to excess calories; Z68.39 Body mass index [BMI] 39.0-39.9, adult
CPT/HCPCS: 99214

== ENCOUNTER 2023-06-19 07:34 | Outpatient (REF) | payer BC, SELFPAY ==
--- NOTE | ~2023-06-19 | CT_ITS ---
EXAMINATION: CT CHEST WITHOUT CONTRAST CLINICAL INFORMATION: Follow-up lung mass. COMPARISON: Prior chest CT examinations, most recently 01/30/2023. TECHNIQUE: Multidetector volumetric CT imaging of the chest was done. Axial MIP volume rendering provided. Sagittal and coronal reformatted images were obtained. This CT examination was performed using dose optimization techniques as appropriate, variously including the following: *Automated exposure control *Adjustment of mA and/or kV according to patient size (this includes techniques or standardized protocols for targeted exams where dose is matched to indication/reason for exam; i.e. extremities or head) *Use of iterative reconstruction technique DLP: 168.00 mGy-cm FINDINGS: HEALTH PRACTICE MANAGER: There is elevation of the right hemidiaphragm. A right upper lobe mass is redemonstrated. LUNGS: There has been a prior right middle lobectomy. Within the right upper lobe (5:180), a 4.6 x 3.1 cm spiculated mass is seen. This shows a precontrast Hounsfield value of 2.1 units. There are a few adjacent subcentimeter daughter nodules, one of the largest measuring 7 mm (5:189). There are adjacent surgical staple lines. These findings are very stable in dimensions and overall appearance from 01/30/2023. There is adjacent scar/atelectasis and pleural thickening. Within the lateral basal segment of the right lower lobe (5:209), a 6 mm noncalcified nodule is seen. This is also stable from 01/30/2023. No infiltrate or groundglass opacity is seen. There is no generalized increase in peripheral interlobular septal markings. No bleb or bullous formation is seen. There is no small airway thickening. The central airways appear patent. MEDIASTINUM: The thyroid is unremarkable. In the precarinal region (3:15), there is a mildly enlarged lymph node with short axis diameter of 1.1 cm. No sizable bilateral hilar lymphadenopathy is seen. There is no thoracic aortic aneurysm. CORONARY ARTERY CALCIFICATION: None visualized on this study. PLEURA: There is no pleural effusion. No pleural mass or thickening. AXILLA: No lymphadenopathy. UPPER ABDOMEN: The gallbladder is surgically absent. There are gastroesophageal stella. The adrenal glands are unremarkable. OSSEOUS STRUCTURES: There is multi-level mild thoracic spondylosis. No acute or aggressive osseous finding is noted. CT/CT chest wo IV con IMPRESSION: There is a stable 4.6 cm right upper lobe spiculated mass, with adjacent daughter nodules. This is highly suspicious for malignancy. A further stable 6 mm noncalcified nodule is seen within the right lower lobe. These findings could be further resolved with PET/CT and/or biopsy, if clinically indicated. The recently seen right lower lobe groundglass opacity has resolved in the interim. A mildly diminished paratracheal lymph node is noted. No pleural effusion is seen. There is no aggressive osseous lesion.
== END 2023-06-19 07:35 | disposition home or self-care (01) ==
LOC: HO.CT 07:34
PROVIDERS: PCP Nurse Practitioner Family; Visit Provider Hospitalist
DX: R91.8 Other nonspecific abnormal finding of lung field (principal)
CPT/HCPCS: 71250

== ENCOUNTER 2023-06-19 07:48 | Outpatient (REF) | payer BC, SELFPAY ==
[2023-06-19 08:00] LABS: MANUAL DIFF FLAG NO
[2023-06-19 08:50] LABS: Basophils Percent Auto 0.3 % (0-2); Eosinophils Absolute Auto 0.1 X10*3/uL (0.0-0.4); Eosinophils Percent Auto 1.5 % (0-4); Hematocrit 40.9 % (37.0-47.0); Imm Gran Abs Auto 0.01 X10*3/uL (0.00-0.03); Imm Gran Pct Auto 0.2 % (0.0-0.4); Lymphocytes Absolute Auto 1.7 X10*3/uL (1.2-4.9); Lymphocytes Percent Auto 28.7 % (20-40); Mean Corpuscular HGB Conc 34.2 g/dl (31.0-35.0); Mean Corpuscular Hemoglobin 30.4 pg (27.0-33.0); Mean Corpuscular Volume 88.9 fL (80.0-98.0); Mean Platelet Volume 11.2 fL (9.4-12.3); Monocytes Absolute Auto 0.6 X10*3/uL (0.1-1.2); Monocytes Percent Auto 9.8 % (2-11); Neutrophils Absolute Auto 3.6 x10*3/uL (2.0-8.3); Neutrophils Percent Auto 59.5 % (45-73); Platelet Count 264 X10*3/uL (160-400); Red Cell Distribution Width 12.5 % (11.0-16.0)
[2023-06-19 09:34] LABS: Erythrocyte Sedimentation Rate 16 MM/HR (0-20)
[2023-06-19 09:46] LABS: Alanine Aminotransferase 22 U/L (0-31); Albumin Level 4.2 g/dL (3.5-5.0); Alkaline Phosphatase 136 U/L (39-117); Anion Gap 11 (12-20); Aspartate Amino Transferase 25 U/L (5-31); Bilirubin Total 0.9 mg/dL (0.0-1.0); Blood Urea Nitrogen 15 mg/dL (9-16); C Reactive Protein < 0.10 mg/dL (< or = 0.50); Calcium 9.2 mg/dL (8.4-10.2); Carbon Dioxide 25 mmol/L (22-29); Chloride 106 mmol/L (96-108); Estimated Glomerular Filt Rate > 60; Glucose Random 98 mg/dL (60-115); Potassium 3.8 mmol/L (3.3-5.1); Sodium 138 mmol/L (135-145); Total Protein 7.5 g/dL (6.5-8.0)
== END 2023-06-19 07:49 | disposition home or self-care (01) ==
LOC: HO.LAB 07:48
PROVIDERS: Visit Provider Student in an Organized Health Care Education/Training Program
DX: M05.9 Rheumatoid arthritis with rheumatoid factor, unspecified (principal)
CPT/HCPCS: 36415; 80053; 85025; 85652; 86140

== ENCOUNTER 2023-07-08 09:41 | Outpatient (AMB) | payer BC, SELFPAY ==
[2023-07-08 09:43] VITALS: PULSE 75; O2SAT 97; BMI 39.1
--- NOTE | 2023-07-08 09:43 | MHC.OFFVIS ---
Vital Signs 07/08/23 09:43 Height 5 ft 2 in Weight 213 lb 13.574 oz BMI 39.1 Pulse 75 Pulse Source Pulse Oximeter Pulse Oximetry (%) 97 Oxygen Delivery Method Room Air Intake Visit Reasons: discuss ct Slip Filler Required: No Allergies levofloxacin Allergy (Severe, Verified 07/08/23 09:46) hives HPI Comments Details: The patient is a 53-year-old woman with a known history of rheumatoid arthritis previously on immunomodulators including methotrexate and Humira. Apparently back in May 05, 2018 the patient developed a tooth abscess needing antibiotics. Subsequently complicated by pneumonia. She was admitted to [facility] which was found to have ground-glass opacities bilaterally consistent with pneumonitis and also nodular densities in the right middle lobe. She was evaluated by Pulmonary at that point. If felt necessary for her to have a bronchoscopy. Apparently I do not have the details of the bronchoscopy which she may have had some bleeding therefore not leading to any biopsies. However, her cultures were all negative for infection. Subsequently after that she developed worsening nodular densities in the right upper lobe and also again the right middle lobe on repeat CT scans of the chest and therefore the patient was referred to additional orientation & mobility specialist and also referred to thoracic surgery. She did undergo a Navagation-guided biopsy of the consolidated lung. Was consistent with non-necrotizing granulomas which is very suspicious of sarcoidosis. The patient has other symptoms in addition to some hair loss she has had some visual loss denies any rashes she has significant arthritis and swelling of her body. The question is if this is related to sarcoid or related to her underlying connective tissue disease. At this point based on the fact that she has failed methotrexate and has significant evidence of sarcoid in addition to interstitial lung disease the patient needs to be placed on immunomodulator therapy. Therefore, I will send her CellCept. Patient also will take prednisone in the meantime. I did speak to her nuclear scientist about this. She is scheduled to undergo a CT scan of chest the end of this month. Will see if the medication is helping some size some of the findings. Apparently she was started on CellCept to help her with her inflammatory autoimmune condition. However, after starting the small dose of 500 twice a day the patient started having multiple complaints including lightheadedness, nausea vomiting, memory loss and weakness. She was not started on any other medicine. Therefore the patient came in to be evaluated. She also stop the prednisone about a day ago. She started to develop significant swelling of her hands and risk. Right more than left. She does have a CT scan of the scan plan for the beginning of May. At this point the av request the patient stop the medicine. I will provide her Solu-Medrol 125 mg IM and she should restart the prednisone. I will also refer the patient to the sarcoid clinic at [facility]. Based on the fact the patient has tried and failed methotrexate and now mycophenolate I do not believe immunomodulators are good option for her. Therefore, based on the fact that she has a do a diagnosis of both sarcoidosis and rheumatoid arthritis I do believe using Remicade may be a reasonable option. I will reach out to her nuclear scientist at this time. We did discuss her CT scan that she had recently demonstrating interval improvement in her areas of consolidation which is reassuring. 04/30/2022 the patient is here for a pulmonary follow-up visit. She is complaining of worsening pleuritic chest discomfort. She had been well until recently and she became sick with likely a viral syndrome. She has been coughing more. She has been concerned because now her pleuritic discomfort that typically is only on her right side now also involving her left. Denies any significant mucus production at this time. Denies any significant shortness of breath. She is scheduled to see Rheumatology sometime this week. Therefore, explained to her that be best to hold off on any steroid therapy that may interfere with the analysis that will be required. Therefore will work on pain management and also request a chest x-ray. If she has has worsening findings on the x-ray but no be reasonable to treat her more urgently. 07/02/2022 the patient is here for a pulmonary follow-up visit. She is complaining of worsening pleuritic chest discomfort. Moderate in severity. Not any worse. Was referred to pain clinic. Last CT ches was in 01/2022 with lumg mass. She will be starting Orencia soon. Will plan to repeat CT chest after 3-4 month of therapy. Has not required any prednisone. She is confused with her diagnosis. I reassured her that based on her biopsy with non necrotizing granulomas consistent with a sarcoid like activity. Likely a manifestation of her autoimmune disease. Does not appear to be consistent with medication induced or smoldering infections. She also has difficulty sleeping. She is using Lunesta as needed. Currently helping taking care of a so she is not using it as often. 11/13/2022 the patient is here for pulmonary follow-up visit. She continues to have worsening pleuritic discomfort. Moderate to severe. The patient is very discouraged rate now. Her discomfort is primarily on the right side. She is working closely with pain management. In the meantime she did have a CT scan of the chest that I personally reviewed. It appears that the right-sided masslike density has increased in size. Again the biopsy was suggestive of a sarcoid like reaction. She did follow-up with Rheumatology. Appears that her blood work is consistent with rheumatoid arthritis. She was prescribed Orencia however, the patient has not been able to start the medication as of yet. The patient has been off all CellCept and also has not been on any prednisone. Explained to her that with this inflammatory process she does need a component of anti-inflammatory therapy. The patient is also having pain. At this point will provide her with analgesia to provide her with some relief. the patient will start the prednisone and subsequently hopefully start the Orencia soon in order to repeat the CT scan in 3 months time. If the patient does not respond to therapy then referral to [facility] will requested. 02/14/2023 The patient has a telehealth visit. She started developing flu like symptoms 3 days ago. She went to the ED and sent home, then she tested with ahome test and has positive for covid yesterday. Having more asthma symptoms. She had been taking Orencia for her RA and had been on prednisone 20mg. But she has been off the Orencia and also the prednisone. She will be starting Paxlovid x 5 days. We did review her CT cest, It is reassuring that her mass like density has not changed. Although, she does have a new pulmonary nodule. Appears to be in a vascular distribution and would benefit in a CT chest with IV contrast for the next evaluation. She continues to have pain and does respond well to the oxycodone. She also recently fractured her toe and is recovering for that as well. 07/08/2023 the patient is here for a pulmonary follow-up visit. Overall she is doing fairly well. She has been active and changing her lifestyle and exercising. She is lost some weight which is reassuring. Her breathing is stable. Her arthritis is also stable. She continues on the Orencia. She also continues on a small dose of prednisone. Seems to be tolerating well. 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 We did review her recent CT scan of the chest and also compared to the CT scan that she had back in the fall and also late summer. This was in 2022. Appears that the masslike density it slowly decreasing in size. He still spiculated still has nodular densities surrounding it. This is by on biopsied couple times and is negative for any malignant process although still a concerning the can mask. I am reassured that with the biopsies and I am reassured with the fact that has not been increasing in size. No significant lymphadenopathy that I can appreciate. The other ground-glass areas are better. Therefore will repeat the CT scan in 6 months and she will continue with current therapy. 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 user Pleuritic chest pain Sinusitis Headache Right ankle sprain Ankle pain Chest pain RUQ pain Thyroid nodule Lymphadenopathy Bradycardia Pneumonia Cervical mass BRCA gene positive Chronic idiopathic constipation Post herpetic neuralgia Multinodular thyroid 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 Lump of left thigh ÁNGELA (obstructive sleep apnea) Insomnia ILD (interstitial lung disease) Sarcoidosis Lung mass Dizziness SOB (shortness of breath) Transaminitis Sarcoidosis Surgical History History of removal of ovarian cyst History of lung surgery History of breast biopsy Hx of abdominoplasty History of laparoscopic adjustable gastric banding History of tubal ligation History of section History of hysterectomy History of cholecystectomy Family History Father Cardiovascular disease Mother Cardiovascular disease Hypertension Thyroid condition Daughter Thyroid condition Rheumatoid arthritis Sister Thyroid condition Brother Rheumatoid arthritis Social History Housing: House Alcohol intake: current Alcohol intake frequency: holidays/special occasions only Patient Tobacco Use Status: Former Tobacco user Quit Date: 20 yrs ago Tobacco use type: Cigarette Years Smoked: 15 years quit about 20 years ago e-Cigarette/Vaping Use: Never Used Second Hand Smoke Exposure: Yes service: No Current occupational status: unemployed Current occupation: rt handed Cognitive needs: No Hearing needs: No Vision needs: Yes (Glasses) Review of Systems Const Denies chills, Reports headache(s) and Denies weight loss ENT Reports headache(s) Card Reports chest pain, Denies syncope, Denies irregular heart rhythm and Denies dyspnea Resp Denies chest congestion, Reports cough, Reports pain on inspiration, Reports pain with cough, Denies dyspnea and Reports wheezing GI Denies abdominal pain, Denies change in stool character, Denies nausea and Denies vomiting Musc Denies deformity and Denies joint swelling Neuro Denies syncope and Reports headache(s) Aller/Immun Reports wheezing Physical Exam Vital Signs: Last Vital Signs Pulse 75 07/08/23 09:43 Pulse Ox 97 07/08/23 09:43 Oxygen Delivery Method Room Air 07/08/23 09:43 BMI result Body Mass Index 39.1 Const General: comfortable and alert HEENT Head: Yes normal to inspection Ears: TM abnormal with fluid behind the TM (minimal) bilateral General nose exam: Abnormal mucous membranes and turbinates present erythematous Face and sinus: Yes sinus tenderness and Yes Facial tenderness on exam of face and sinuses Throat: Yes postnasal drainage and Yes cobblestoning Neck Neck: Yes normal visual inspection, Yes full ROM and Yes no lymphadenopathy Chest Chest palpation & inspection: normal inspection of the chest Resp Auscultation: diminished lung sounds Cardio Rate: regular rate Rhythm: regular rhythm Heart sounds: S1 normal heart sound present and S2 normal heart sound present GI Palpation (GI): Soft to palpation and nontender Auscultation: normal bowel sounds Skin General skin exam: rashes and/or lesions noted Results Reviewed Results Reviewed: personally reviewed CT chest 2023,2022,2022 Assessment & Plan Assessment & Plan (1) Lung mass: Comment: Surgical biopsy with a combination of granulomas, organizing pneumonia and lipid aspiration Code(s): R91.8 - Other nonspecific abnormal finding of lung field Category: Medical (2) ILD (interstitial lung disease): Code(s): J84.9 - Interstitial pulmonary disease, unspecified Category: Medical (3) Seropositive rheumatoid arthritis: Comment: +++RF+++CCP Onset early 2014. SSZ started 02/15 - stopped due diarrhea MTX taken briefly 2015- May 2015? MTX restarted 07/18- changed to SC Dec 2016 due to nausea Humira added 02/18 to methotrexate. Both stopped 04/22 due to infection. Humira was suspected to have caused lung issues (?drug induced sarcoid) MTX and Humira remained held 03/23 04/23: Cellcept started by pulmonary - GI side effects, confusion so it was stopped 07/21 methotrexate and Humira restarted stopped sometime in 2020 Imuran briefly, not sure what happened with that 2020 Orencia attempted got denied. Approved 07/2022, started 01/2023 effective Code(s): M05.9 - Rheumatoid arthritis with rheumatoid factor, unspecified Category: Medical (4) Chest pain: Code(s): R07.9 - Chest pain, unspecified Category: Medical Qualifiers: Chest pain type: intercostal pain Qualified Code(s): R07.82 - Intercostal pain Plan Pain control: Lidoderm patch, percocet continue Prednisone continue Orencia PPI reflux diet Lunesta as needed for sleep F/U with Rheumatology repeat CT chest 6 months Follow-up in 6months Medications: Refilled oxycodone Partial Fill upon patient request. 5 mg PO Q8H PRN 30 tabs 0RF pain 10 days eszopiclone (Lunesta) 1 mg PO BEDTIME 90 tabs 0RF 90 days Coding Level of Care Code Est Pt Level 5 (61588) Diagnoses Lung mass R91.8 ILD (interstitial lung disease) J84.9 Seropositive rheumatoid arthritis M05.9 Intercostal pain R07.82 Chest pain type: intercostal pain Time Spent (min) 40
== END 2023-07-08 10:09 | disposition home or self-care (01) ==
PROVIDERS: PCP Nurse Practitioner Family; Visit Provider Hospitalist
DX: R91.8 Other nonspecific abnormal finding of lung field (principal); J84.9 Interstitial pulmonary disease, unspecified; M05.9 Rheumatoid arthritis with rheumatoid factor, unspecified; R07.82 Intercostal pain
CPT/HCPCS: 99215

== ENCOUNTER → 2023-07-08 09:41 | Outpatient (BNVA) | payer BC, SELFPAY | PROVIDERS: PCP Nurse Practitioner Family; Visit Provider Hospitalist ==

== ENCOUNTER 2023-09-12 12:46 | Outpatient (REF) | payer BC, SELFPAY ==
--- NOTE | ~2023-09-12 | MM_ITS ---
EXAMINATION: MM SCREENING DIGITAL BREAST TOMOSYNTHESIS, BILATERAL CLINICAL INFORMATION: Screening. Asymptomatic. COMPARISON: Mammography: This study is compared with prior exams dating back to 2019. TECHNIQUE: Digital breast tomosynthesis is performed in both the craniocaudal and mediolateral oblique views along with computer-aided detection (CAD). Synthesized 2D images are generated from the tomosynthesis. FINDINGS: There are scattered areas of fibroglandular density (ACR BI-RADS breast composition Category b). There are no significant masses, abnormal calcifications, or other abnormalities. There is a biopsy tissue marker in the left breast. MM/MM tomosynthesis screening BI IMPRESSION: No mammographic evidence of malignancy. ASSESSMENT: BI-RADS BI-RADS 2 - Benign Findings RECOMMENDATION: Routine annual mammography screening. 1 year F/U This examination should not preclude the clinical evaluation of a suspicious palpable abnormality. This patient's information was entered into a reminder system with a target due date for their next mammogram.
== END 2023-09-12 12:47 | disposition home or self-care (01) ==
LOC: HO.MAMMO 12:46
PROVIDERS: PCP Internal Medicine; Visit Provider Internal Medicine
DX: Z12.31 Encounter for screening mammogram for malignant neoplasm of breast (principal)
CPT/HCPCS: 77063; 77067

== ENCOUNTER → 2023-09-12 13:00 | Outpatient (BNV) | payer BC, SELFPAY | PROVIDERS: PCP Internal Medicine; Visit Provider Radiology Diagnostic Radiology | DX: Z12.31 Encounter for screening mammogram for malignant neoplasm of breast (principal) | CPT/HCPCS: 77063; 77067 ==

== ENCOUNTER 2023-10-17 13:42 | Outpatient (AMB) | payer BC, SELFPAY ==
[2023-10-17 13:44] VITALS: BP 106/68; PULSE 66; O2SAT 97; BMI 37.9
--- NOTE | 2023-10-17 13:44 | MHC.PC.OV ---
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: No Allergies levofloxacin Allergy (Severe, Verified 10/17/23 14:43) hives Medication List - Last Reconciled 10/17/23 by Royce Wild MD albuterol sulfate 90 mcg/actuation 2 puffs PO Q6H PRN albuterol sulfate 2.5 mg (3 mL) inhalation Q6H PRN biotin 5 mg PO DAILY budesonide 0.5 mg (2 mL) inhalation BID budesonide-formoterol 160-4.5 mcg/actuation 2 puffs PO BID cholecalciferol (vitamin D3) 125 mcg PO DAILY diclofenac sodium 1% (Arthritis Pain (diclofenac)) 4 grams topical QID duloxetine 30 mg PO DAILY 30 days eszopiclone (Lunesta) 1 mg PO BEDTIME 90 days famotidine 40 mg PO BEDTIME folic acid 1 mg PO DAILY 90 days gabapentin 600 mg PO BEDTIME PRN lidocaine 5% (Lidoderm) 1 patch topical DAILY 30 days hdpmzy-[id number]-eltbcyk 36,000-114,000- 180,000 unit (Creon) 1 cap PO QID lubiprostone 16 mcg (2 x 8 mcg) PO BID meclizine 25 mg PO TID-QID mecobalamin (vitamin B12) 1,000 mcg sublingual DAILY nebulizers As directed omeprazole 40 mg PO DAILY Orencia ClickJect (abatacept) 125 mg subcut QWEEK NS oxycodone 5 mg PO Q8H PRN 10 days prednisone 10 mg PO DAILY simethicone 180 mg PO QID 30 days Tobacco use date assessed: 06/13/23 Dental Screening Dental Screen Date: 10/17/23 Did you have a dental visit in the last 12 months?: Yes Did you have a dental problem in the last 6 months where you did not have access to dental care?: No Was dental information given to patient?: Patient has dentist HPI annual exam HPI Details 53-year-old female presents to the office requesting an annual physical. Patient has multiple medical problems and sees several consultants. A list has been obtained and updated in the chart. 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 Pleuritic chest pain Sinusitis Headache Right ankle sprain Ankle pain Chest pain RUQ pain Thyroid nodule Lymphadenopathy Bradycardia Pneumonia Cervical mass BRCA gene positive Chronic idiopathic constipation Post herpetic neuralgia Multinodular thyroid Mixed connective tissue disease [id number] syndrome Lump of left thigh ÁNGELA (obstructive sleep apnea) Insomnia ILD (interstitial lung disease) Sarcoidosis Lung mass Dizziness SOB (shortness of breath) Transaminitis Sarcoidosis Surgical History History of removal of ovarian cyst History of lung surgery History of breast biopsy Hx of abdominoplasty History of laparoscopic adjustable gastric banding History of tubal ligation History of section History of hysterectomy History of cholecystectomy Family History Father Cardiovascular disease Mother Cardiovascular disease Hypertension Thyroid condition Daughter Thyroid condition Rheumatoid arthritis Sister Thyroid condition Brother Rheumatoid arthritis Social History Housing: House Alcohol intake: current Alcohol intake frequency: holidays/special occasions only Patient Tobacco Use Status: Former Tobacco user Tobacco use type: Cigarette Years Smoked: 15 years quit about 20 years ago e-Cigarette/Vaping Use: Never Used Second Hand Smoke Exposure: Yes service: No Current occupational status: unemployed Current occupation: rt handed Cognitive needs: No Hearing needs: No Vision needs: Yes (Glasses) Questionnaire PHQ-9 Over the last 2 weeks, how often have you been bothered by any of the following problems? 1. Little interest or pleasure in doing things: not at all 2. Feeling down, depressed, or hopeless: not at all 3. Trouble falling or staying asleep, or sleeping too much: not at all 4. Feeling tired or having little energy: not at all 5. Poor appetite or overeating: not at all 6. Feeling bad about yourself - or that you are a failure or have let yourself or your family down: not at all 7. Trouble concentrating on things, such as reading the newspaper or watching television: not at all 8. Moving or speaking so slowly that other people could have noticed. Or the opposite - being so fidgety or restless that you have been moving around a lot more than usual: not at all 9. Thoughts that you would be better off or of hurting yourself in some way: not at all Total score: 0 Depression Screening Interpretation: Negative Depression Screening Done: Yes Source: Developed by Drs. Terence Diaz, Leila Hawk, Jani Osborn and colleagues, with an educational ashley from [employer]. Thrive Questionnaire Date Thrive assessed: 06/13/23 Currently or been in a relationship where the following occur: No concerns reported THRIVE Score: 0 AUDIT C Alcohol Use Questionnaire (AUDIT-C) 1. How often do you have a drink containing alcohol?: Never 3. How often do you have six or more drinks on one occasion?: Never Total Score: 0 YENNI-7 AMB Questionnaire YENNI-7 Date YENNI - 7 assessed: 06/13/23 Source: Developed by Drs. Terence Diaz, Leila Hawk, Jani Osborn and colleagues, with an educational ashley from [employer]. Physical exam (Primary Care) Vital Signs: Last Vital Signs Pulse 66 10/17/23 13:44 BP 106/68 10/17/23 13:44 Pulse Ox 97 10/17/23 13:44 Oxygen Delivery Method Room Air 10/17/23 13:44 Care Plan Goal for BP management: Blood pressure is in range. BMI result Body Mass Index 37.9 BMI Assessment/Plan discussion: High (1 lb per week weight loss suggested.) BMI High, discussed plan: lifestyle, weight reduction and dietary Tobacco/Smoking Status: Tobacco use Status Tobacco use date assessed 06/13/23 10/17/23 13:45 Patient Tobacco Use Status Former Tobacco user 10/17/23 13:45 Tobacco use type Cigarette 10/17/23 13:45 e-Cigarette/Vaping Use Never Used 10/17/23 13:45 PHQ-9: PHQ-9 Score PHQ-9: Total score 0 10/17/23 13:52 Depression Screening Interpretation: Negative Thrive Assessment: Date of Thrive Assessment Date Thrive assessed 06/13/23 10/17/23 13:45 Currently or been in a relationship where the following occur: No concerns reported Const General: cooperative and healthy appearing Nutritional Appearance: well nourished Orientation/consciousness: patient oriented x3 Limitations: no limitations HENMT Head: Yes normal to inspection Eyes General: appearance normal, both eyes and all related structures Neck Neck: Yes normal visual inspection Chest Chest palpation & inspection: normal palpation of entire chest wall Resp Effort & Inspection: normal respiratory effort Neuro General: patient oriented x3 Assessment and Plan Assessment & Plan (1) Seropositive rheumatoid arthritis: Comment: +++RF+++CCP Onset early 2014. SSZ started 02/15 - stopped due diarrhea MTX taken briefly 2015- May 2015? MTX restarted 07/18- changed to SC Dec 2016 due to nausea Humira added 02/18 to methotrexate. Both stopped 04/22 due to infection. Humira was suspected to have caused lung issues (?drug induced sarcoid) MTX and Humira remained held 03/23 04/23: Cellcept started by pulmonary - GI side effects, confusion so it was stopped 07/21 methotrexate and Humira restarted stopped sometime in 2020 Imuran briefly, not sure what happened with that 2020 Orencia attempted got denied. Approved 07/2022, started 01/2023 effective Code(s): M05.9 - Rheumatoid arthritis with rheumatoid factor, unspecified Plan: Patient is seeing a fashion design professor. (2) ILD (interstitial lung disease): Code(s): J84.9 - Interstitial pulmonary disease, unspecified Plan: Patient is seeing a supervisor nurse who is closely monitoring her condition. (3) Mixed connective tissue disease: Code(s): M35.1 - Other overlap syndromes (4) Multinodular thyroid: Code(s): E04.2 - Nontoxic multinodular goiter Plan: Patient sees an android ui developer. (5) Irritable bowel syndrome with both constipation and diarrhea: Code(s): K58.2 - Mixed irritable bowel syndrome Plan: Patient sees an advanced provider at robotic technician (6) Class 2 severe obesity with body mass index (BMI) of 35 to 39.9 with serious comorbidity: Code(s): E66.01 - Morbid (severe) obesity due to excess calories Plan: Counseling to lose weight done. Orders: Orders Basic Metabolic Panel Today E04.2 - Nontoxic multinodular goiter, E66.01 - Morbid (severe) obesity due to excess calories, J84.9 - Interstitial pulmonary disease, unspecified, K58.2 - Mixed irritable bowel syndrome, M05.9 - Rheumatoid arthritis with rheumatoid factor, unspecified, M35.1 - Other overlap syndromes Complete Blood Count no Diff Today E04.2 - Nontoxic multinodular goiter, E66.01 - Morbid (severe) obesity due to excess calories, J84.9 - Interstitial pulmonary disease, unspecified, K58.2 - Mixed irritable bowel syndrome, M05.9 - Rheumatoid arthritis with rheumatoid factor, unspecified, M35.1 - Other overlap syndromes Thyroid Stimulating Hormone Today E04.2 - Nontoxic multinodular goiter, E66.01 - Morbid (severe) obesity due to excess calories, J84.9 - Interstitial pulmonary disease, unspecified, K58.2 - Mixed irritable bowel syndrome, M05.9 - Rheumatoid arthritis with rheumatoid factor, unspecified, M35.1 - Other overlap syndromes Liver Panel Today E04.2 - Nontoxic multinodular goiter, E66.01 - Morbid (severe) obesity due to excess calories, J84.9 - Interstitial pulmonary disease, unspecified, K58.2 - Mixed irritable bowel syndrome, M05.9 - Rheumatoid arthritis with rheumatoid factor, unspecified, M35.1 - Other overlap syndromes Lipid Panel Today E04.2 - Nontoxic multinodular goiter, E66.01 - Morbid (severe) obesity due to excess calories, J84.9 - Interstitial pulmonary disease, unspecified, K58.2 - Mixed irritable bowel syndrome, M05.9 - Rheumatoid arthritis with rheumatoid factor, unspecified, M35.1 - Other overlap syndromes UA and rflx microscopic Today E04.2 - Nontoxic multinodular goiter, E66.01 - Morbid (severe) obesity due to excess calories, J84.9 - Interstitial pulmonary disease, unspecified, K58.2 - Mixed irritable bowel syndrome, M05.9 - Rheumatoid arthritis with rheumatoid factor, unspecified, M35.1 - Other overlap syndromes Coding Level of Care Code Est Pt Prev Care 40-64y(60734) Diagnoses Seropositive rheumatoid arthritis M05.9 ILD (interstitial lung disease) J84.9 Mixed connective tissue disease M35.1 Multinodular thyroid E04.2 Irritable bowel syndrome with both constipation and diarrhea K58.2 Class 2 severe obesity with body mass index (BMI) of 35 to 39.9 with serious comorbidity E66.01
== END 2023-10-17 14:29 | disposition home or self-care (01) ==
PROVIDERS: PCP Nurse Practitioner Family; Visit Provider Internal Medicine
DX: Z00.00 Encounter for general adult medical examination without abnormal findings (principal); M05.9 Rheumatoid arthritis with rheumatoid factor, unspecified; J84.9 Interstitial pulmonary disease, unspecified; M35.1 Other overlap syndromes; E66.01 Morbid (severe) obesity due to excess calories; E04.2 Nontoxic multinodular goiter; K58.2 Mixed irritable bowel syndrome; Z68.37 Body mass index [BMI] 37.0-37.9, adult
CPT/HCPCS: 99396

== ENCOUNTER 2023-10-18 13:57 | Outpatient (REF) | payer BC, SELFPAY ==
[2023-10-18 15:27] LABS: Appearance Urine Clear; Color Urine Dark Yellow; Glucose Urine UA Negative (Negative); Leukocyte Esterase Urine Trace (Negative); Nitrite Urine Negative (Negative); PH 5.5 (5.0-9.0); Specific Gravity - Urine >= 1.030 (1.005-1.025); UMIC TRIGGER UA YES; Urine Blood Negative (Negative); Urine Ketones Trace mg/dL (Negative); Urine Protein Trace mg/dL (Neg-Trace)
[2023-10-18 15:31] LABS: Hematocrit 38.8 % (37.0-47.0); Hemoglobin 13.8 g/dl (12.0-16.0); Mean Corpuscular HGB Conc 35.6 g/dl (31.0-35.0); Mean Corpuscular Hemoglobin 31.6 pg (27.0-33.0); Mean Corpuscular Volume 88.8 fL (80.0-98.0); Mean Platelet Volume 11.6 fL (9.4-12.3); Platelet Count 222 X10*3/uL (160-400); Red Blood Count 4.37 X10*6/uL (4.20-5.50); Red Cell Distribution Width 13.3 % (11.0-16.0); White Blood Count 6.5 X10*3/uL (4.8-10.8)
[2023-10-18 15:36] LABS: Bacteria Urine None Seen (None Seen); Hyaline Casts Urine 0-2 /LPF (0-2); RBC Urine 0-2 /HPF (0-2); WBC Urine 0-5 /HPF (0-5)
[2023-10-18 15:57] LABS: Alanine Aminotransferase 13 U/L (0-31); Alkaline Phosphatase 116 U/L (39-117); Anion Gap 12 (12-20); Aspartate Amino Transferase 20 U/L (5-31); Bilirubin Direct 0.3 mg/dL (0.0-0.5); Bilirubin Total 0.7 mg/dL (0.0-1.0); Blood Urea Nitrogen 10 mg/dL (9-16); Carbon Dioxide 24 mmol/L (22-29); Chloride 110 mmol/L (96-108); Cholesterol 145 mg/dL (<200); Estimated Glomerular Filt Rate > 60; Glucose Random 85 mg/dL (60-115); HDL Cholesterol 48 mg/dL (>40); LDL Cholesterol Calculated 81 mg/dL (<100); Sodium 142 mmol/L (135-145); Total Protein 7.3 g/dL (6.5-8.0); Triglycerides 80 mg/dL (<150)
[2023-10-18 16:16] LABS: Thyroid Stimulating Hormone 2.04 uIU/mL (0.32-4.0)
== END 2023-10-18 13:58 | disposition home or self-care (01) ==
LOC: HO.LAB 13:57
PROVIDERS: Visit Provider Internal Medicine
DX: E66.01 Morbid (severe) obesity due to excess calories (principal); K58.2 Mixed irritable bowel syndrome; M35.1 Other overlap syndromes; E04.2 Nontoxic multinodular goiter; J84.9 Interstitial pulmonary disease, unspecified; M05.9 Rheumatoid arthritis with rheumatoid factor, unspecified
CPT/HCPCS: 36415; 80048; 80061; 80076; 81001; 84443; 85027

== ENCOUNTER 2023-11-21 14:44 | Outpatient (AMB) | payer BC, SELFPAY ==
--- NOTE | 2023-11-21 14:52 | A.OFFVIS_ITS ---
Vital Signs 11/21/23 15:13 Height 5 ft 2 in Weight 205 lb 0.478 oz BMI 37.5 BP 122/74 Blood Pressure Location Rt radial Position Sitting Intake Visit Reasons: 6 mnthfollow Intake Note: Patient in office today in 6 months follow up of GERD. CC: She reports that for a few weeks she feels disgust when trying to eat sometimes. Denies other GI concerns. Germination Testing Manager Required: No Accompanied by: Self / Same As Patient Allergies levofloxacin Allergy (Severe, Verified 11/28/23 11:08) hives HPI HPI 6 mnthfollow: Details: Assessment & Plan (1) GERD (gastroesophageal reflux disease): Code(s): K21.9 - Gastro-esophageal reflux disease without esophagitis (2) Irritable bowel syndrome with both constipation and diarrhea: Code(s): K58.2 - Mixed irritable bowel syndrome Plan She continues on her omeprazole and her famotidine with good control of her GERD. Her Amitiza is 16 mcg b.i.d. and this along with her Creon controls her irritable bowel. She has changed her diet to eat less carbs, no sugar, no coffee, and she is counting calories as well. She is drinking a protein drink form [employer] that is helping her. With this she is satisfied with her GI regimen. Return office visit in 6 months Medications: Refilled [id number] 36,000-114,000- 180,000 unit (Creon) administer with meals and/or snacks 1 cap PO QID 120 caps 3RF simethicone after meals 180 mg PO QID 30 days 120 caps 3RF lubiprostone 16 mcg (2 x 8 mcg) PO BID 360 caps 1RF K58.2 - Mixed irritable bowel syndrome famotidine 40 mg PO BEDTIME 90 tabs 2RF omeprazole 40 mg PO DAILY 90 caps 2RF TODAYS VISIT She developed sudden onset of early satiety and an off feeling when she was eating. After asking several questions it seems that she had a bad tooth and was on antibiotics for a while and the symptoms sound like they are probably esophageal/Tracie of the GI tract. I will give her a trial of Diflucan for 10 days to see if this solves the problem and if it does not she will call me re turn to our services. Otherwise she remains satisfied with her GI regimen and is moving her bowels well. She continues on her Amitiza, 16 micro g twice a day, omeprazole morning and famotidine at night. 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 Pleuritic chest pain Sinusitis Headache Right ankle sprain Ankle pain Chest pain RUQ pain Thyroid nodule Lymphadenopathy Bradycardia Pneumonia BRCA gene positive Chronic idiopathic constipation Post herpetic neuralgia Multinodular thyroid [id number] syndrome Lump of left thigh ÁNGELA (obstructive sleep apnea) Insomnia ILD (interstitial lung disease) Sarcoidosis Dizziness SOB (shortness of breath) Surgical History History of removal of ovarian cyst History of lung surgery History of breast biopsy Hx of abdominoplasty History of laparoscopic adjustable gastric banding History of tubal ligation History of section History of hysterectomy History of cholecystectomy Family History (Updated 11/28/23 @ 11:17 by IDALMIS Marquez) Father Cardiovascular disease Mother Cardiovascular disease Hypertension Thyroid condition History of breast cancer Daughter Thyroid condition Rheumatoid arthritis Sister Thyroid condition Brother Rheumatoid arthritis Maternal Aunt History of breast cancer Maternal Aunt History of breast cancer Maternal Aunt History of breast cancer Maternal Aunt History of breast cancer Social History Housing: House Alcohol intake: current Alcohol intake frequency: holidays/special occasions only Patient Tobacco Use Status: Former Tobacco user Tobacco use type: Cigarette Years Smoked: 15 years quit about 20 years ago e-Cigarette/Vaping Use: Never Used Second Hand Smoke Exposure: Yes service: No Current occupational status: unemployed Current occupation: rt handed Cognitive needs: No Hearing needs: No Vision needs: Yes (Glasses) Review of Systems Const Denies fatigue, Denies fever(s), Denies night sweats, Reports poor appetite and Denies weight loss Eyes Details: glasses Reports requires corrective lenses ENT Reports Normal hearing present, Denies dental pain, Denies dysphagia, Denies hearing loss, Denies mouth pain, Denies odynophagia, Denies throat swelling, Denies tongue swelling and Reports other (Dentition adequate) Card Reports no additional complaints Resp Reports no additional complaints GI Details: Denies abdominal pain, Denies melena, Denies bloating, Denies hematochezia, Reports constipation, Denies GI cramping, Denies dysphagia, Denies excessive flatus, Reports early satiety, Reports heartburn, Denies diarrhea, Denies nausea, Denies odynophagia, Denies vomiting and Denies hematemesis Skin/Breast Denies pruritus, Denies lesions, Denies rash and Denies jaundice Neuro Reports Normal hearing present and Denies Abnormal speech present Endo Denies fatigue Aller/Immun Denies throat swelling and Denies tongue swelling Physical Exam Vital Signs: Last Vital Signs BP 122/74 11/21/23 15:13 BMI result Body Mass Index 37.5 Const General: cooperative, no acute distress, well developed and well groomed Nutritional Appearance: well nourished and obese Orientation/consciousness: oriented to person, oriented to place and oriented to time Limitations: No language barrier HEENT Head: Yes normocephalic and Yes atraumatic Eyes General: appearance normal, both eyes and all related structures Pupils: Equal, round and reactive pupils present Neck Neck: Yes normal visual inspection and Yes no lymphadenopathy Thyroid: Thyroid normal Resp Effort & Inspection: normal respiratory effort and able to speak in complete sentences Auscultation: clear to auscultation bilaterally Cardio Rate: regular rate Rhythm: regular rhythm Heart sounds: Normal, physiologic split S2 sound present Peripheral pulses: radial pulses present and posterior tibial pulses present GI Inspection: No distended, No Abdominal panniculus present and Yes obesity Palpation (GI): Soft to palpation, nontender, no guarding, not rigid and No hepatosplenomegaly present Percussion: Yes normal to percussion Auscultation: normal bowel sounds Rectal Exam - Female: deferred Skin General skin exam: no rashes or lesions noted, turgor normal, skin not dry, no jaundice, No spider nevi and no striae Rashes: no rashes Nails: normal Neuro General: oriented to person, oriented to place and oriented to time Cranial nerves: Yes Equal, round and reactive pupils present and Yes Normal hearing present Speech: No Abnormal speech present Extrem General: Yes normal to inspection, No clubbing, No cyanosis and No edema Psych Appearance: grossly normal and well kempt Mental Status: mental status grossly normal Speech and movement: Normal speech and movement present Affect: normal affect Attitude: cooperative Thought process: Normal thought process present and not confabulating Thought content: Normal thought content present Insight: Fair insight present (Psych) and Limited insight present (Psych) Judgement: Fair judgement present (Psych) and Limited judgement present (Psych) Assessment & Plan Assessment & Plan (1) GERD (gastroesophageal reflux disease): Code(s): K21.9 - Gastro-esophageal reflux disease without esophagitis Category: Medical (2) Irritable bowel syndrome with both constipation and diarrhea: Code(s): K58.2 - Mixed irritable bowel syndrome Category: Medical (3) Candidiasis of mouth and esophagus: Code(s): B37.81 - Candidal esophagitis; B37.0 - Candidal stomatitis Category: Medical Plan She developed sudden onset of early satiety and an off feeling when she was eating. After asking several questions it seems that she had a bad tooth and was on antibiotics for a while and the symptoms sound like they are probably esophageal/Tracie of the GI tract. I will give her a trial of Diflucan for 10 days to see if this solves the problem and if it does not she will call me return to our services. Otherwise she remains satisfied with her GI regimen and is moving her bowels well. She continues on her Amitiza, 16 micro g twice a day, omeprazole morning and famotidine at night. Return office visit in 6 months or sooner if needed Medications: New fluconazole (Diflucan) 200 mg PO DAILY 10 tabs 0RF 10 days B37.81 - Candidal esophagitis, B37.0 - Candidal stomatitis Refilled [id number] 36,000-114,000- 180,000 unit (Creon) administer with meals and/or snacks 1 cap PO QID 120 caps 3RF lubiprostone 16 mcg (2 x 8 mcg) PO BID 360 caps 1RF K58.2 - Mixed irritable bowel syndrome omeprazole 40 mg PO DAILY 90 caps 2RF simethicone after meals 180 mg PO QID 120 caps 3RF 30 days Coding Level of Care Code Est Pt Level 3 (23543) Diagnoses GERD (gastroesophageal reflux disease) K21.9 Irritable bowel syndrome with both constipation and diarrhea K58.2 Candidiasis of mouth and esophagus B37.81; B37.0
[2023-11-21 15:13] VITALS: BP 122/74; BMI 37.5
== END 2023-11-21 16:12 | disposition home or self-care (01) ==
PROVIDERS: PCP Nurse Practitioner Family; Visit Provider Nurse Practitioner
DX: K21.9 Gastro-esophageal reflux disease without esophagitis (principal); K58.2 Mixed irritable bowel syndrome; B37.81 Candidal esophagitis; B37.0 Candidal stomatitis
CPT/HCPCS: 99213

== ENCOUNTER → 2023-11-21 14:44 | Outpatient (BNVA) | payer BC, SELFPAY | PROVIDERS: PCP Nurse Practitioner Family; Visit Provider Nurse Practitioner ==

== ENCOUNTER 2023-11-28 10:53 | Outpatient (AMB) | payer BC, SELFPAY ==
--- NOTE | 2023-11-28 11:07 | A.OFFVIS_ITS ---
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 She is doing well with no concerns. Attempting to eat a healthy (anti-inflammatory) diet with calcium and vitamin D and stays active with exercise, she happily reports weight loss and has more energy. Currently not sexually active, partner has medical concerns. Denies any vaginal dryness or irritation. STI testing offered; she declines. Last pap smear; 2022. Hx. of Hysterectomy due to fibroid and heavy menstrual bleeding. Last mammogram; 2023. Colonoscopy is UTD. Denies any family history of breast, ovarian or colon cancer. 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 Pleuritic chest pain Sinusitis Headache Right ankle sprain Ankle pain Chest pain RUQ pain Thyroid nodule Lymphadenopathy Bradycardia Pneumonia BRCA gene positive Chronic idiopathic constipation Post herpetic neuralgia Multinodular thyroid [id number] syndrome Lump of left thigh ÁNGELA (obstructive sleep apnea) Insomnia ILD (interstitial lung disease) Sarcoidosis Dizziness SOB (shortness of breath) Surgical History History of removal of ovarian cyst History of lung surgery History of breast biopsy Hx of abdominoplasty History of laparoscopic adjustable gastric banding History of tubal ligation History of section History of hysterectomy History of cholecystectomy Family History (Updated 11/28/23 @ 11:17 by IDALMIS Marquez) Father Cardiovascular disease Mother Cardiovascular disease Hypertension Thyroid condition History of breast cancer Daughter Thyroid condition Rheumatoid arthritis Sister Thyroid condition Brother Rheumatoid arthritis Maternal Aunt History of breast cancer Maternal Aunt History of breast cancer Maternal Aunt History of breast cancer Maternal Aunt History of breast cancer Social History Housing: House Alcohol intake: current Alcohol intake frequency: holidays/special occasions only Patient Tobacco Use Status: Former Tobacco user Tobacco use type: Cigarette Years Smoked: 15 years quit about 20 years ago e-Cigarette/Vaping Use: Never Used Second Hand Smoke Exposure: Yes service: No Current occupational status: unemployed Current occupation: rt handed Cognitive needs: No Hearing needs: No Vision needs: Yes (Glasses) Female Reproductive History Menstrual Total pregnancies: 2 Full term: 2 Number of Living Children: 2 Date of last pap smear: 10/30/22 (neg pap and hpv) Date of Mammogram: 09/12/23 (Birad 2) Other: Colonoscopy 11/08/22 Review of Systems Const All systems reviewed & are unremarkable except as noted in HPI and below Reports as per HPI Eyes Reports no additional complaints ENT Reports no additional complaints Card Reports no additional complaints Resp Reports no additional complaints GI Reports as per HPI and Reports no additional complaints Reports as per HPI Musc Reports no additional complaints Skin/Breast Reports as per HPI Neuro Reports no additional complaints Psych Reports no additional complaints Endo Reports no additional complaints Edmundo/Lymph Reports no additional complaints Aller/Immun Reports no additional complaints Physical Exam Vital Signs: Last Vital Signs BP 110/74 11/28/23 11:08 BMI result Body Mass Index 37.3 Const General: cooperative, healthy appearing, no acute distress, well developed and alert Orientation/consciousness: patient oriented x3 HEENT Head: Yes normal to inspection Eyes General: appearance normal, both eyes and all related structures Neck Neck: Yes normal visual inspection Thyroid: Thyroid normal Chest Chest palpation & inspection: normal inspection of the chest and other (no puckering, dimpling, peau de orange, retraction, discharge, masses) Breast/axilla inspection: normal inspection of the breasts Breast/axilla palpation: normal palpation of the breasts Resp Effort & Inspection: normal respiratory effort GI Inspection: Yes normal to inspection Palpation (GI): Soft to palpation Rectal Exam - Female: deferred General: Yes bladder normal to palpation External Female Exam: normal external appearance and normal appearance of the urethra Speculum Exam - Vagina: normal appearance of the vagina, normal palpation and normal vaginal discharge Speculum Exam - Cervix: normal appearance of the cervix and normal palpation Bimanual exam- vagina & uterus: normal bimanual exam, normal palpation, bladder normal to palpation, normal palpation and uterus absent Bimanual Exam- Adnexa, other: no masses Skin General skin exam: no rashes or lesions noted Rashes: no rashes Neuro General: patient oriented x3 Cognition (Neuro): normal cognition Extrem General: Yes normal to inspection Psych Attitude: cooperative Thought process: Normal thought process present Assessment & Plan Assessment & Plan (1) Encounter for well woman exam with routine gynecological exam: Code(s): Z01.419 - Encounter for gynecological examination (general) (routine) without abnormal findings Category: Medical Plan Discussed: Current recommendations for pap smears per ASCCP guidelines. Breast awareness, periodic self breast exams and yearly mammogram. Maintain a healthy lifestyle, well balanced diet including Calcium 1,200 mg and Vitamin D 600 IU daily, and routine exercise. Contact the office with any vaginal bleeding. Patient verbalizes understanding and agrees to the plan of care. She was given opportunity to ask questions and all questions were answered to the best of my ability. RTO in 1 year for annual chief strategy officer exam. This note is constructed using voice recognition software. While every effort has been made to ensure accuracy, pipe straightener errors may have been included. Coding Level of Care Code Est Pt Prev Care 40-64y(35741) Diagnoses Encounter for well woman exam with routine gynecological exam Z01.419
[2023-11-28 11:08] VITALS: BP 110/74; BMI 37.3
== END 2023-11-28 11:47 | disposition home or self-care (01) ==
PROVIDERS: PCP Nurse Practitioner Family; Visit Provider Advanced Practice Midwife
DX: Z01.419 Encounter for gynecological examination (general) (routine) without abnormal findings (principal)
CPT/HCPCS: 99396

== ENCOUNTER → 2023-11-28 10:53 | Outpatient (BNVA) | payer BC, SELFPAY | PROVIDERS: PCP Nurse Practitioner Family; Visit Provider Advanced Practice Midwife ==

== ENCOUNTER 2023-12-20 15:27 | Outpatient (REF) | payer BC, SELFPAY ==
--- NOTE | ~2023-12-20 | CT_ITS ---
EXAMINATION: CT CHEST WITHOUT CONTRAST CLINICAL INFORMATION: Other nonspecific abnormal finding of lung field; lung mass. COMPARISON: 06/19/2023, 01/30/2023, and exams dating back to 10/18/2020. TECHNIQUE: Multidetector volumetric CT imaging of the chest was done. Axial MIP volume rendering provided. Sagittal and coronal reformatted images were obtained. This CT examination was performed using dose optimization techniques as appropriate, variously including the following: *Automated exposure control *Adjustment of mA and/or kV according to patient size (this includes techniques or standardized protocols for targeted exams where dose is matched to indication/reason for exam; i.e. 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 FINDINGS: PULMONARY NODULES: -Redemonstration of right middle lobe resection. -There is a stable 4.6 x 3.1 cm spiculated mass in the right upper lobe, with stable associated subcentimeter daughter nodules, largest measuring 1.0 cm (series 5, image 182), second largest measuring approximately 7 mm (series 5, image 473). Mass measures approximately 2 Hounsfield units in density, and there is a 9 mm fat attenuating focus in the posterior aspect (series 5, image 200). There is also a coarse calcification peripherally in the inferoanterior margin. There overall, despite the stellate appearance, the presence of fat is highly suggestive of a hamartoma of the lung. There is adjacent surgical staple line, unchanged. -There are centrilobular groundglass foci above the abnormality in the right upper lobe, similar. -Adjacent to the abnormality in the right upper lobe, there is mild pleural thickening and calcification. -There is associated significant volume loss of the right upper lobe with retraction of the major fissure anteriorly. Findings suggest some degree of cicatrization type atelectasis with surgical volume loss. -Within the lateral basal segment of the right lower lobe, there is a 6 mm stable oval nodule measuring -30 Hounsfield units (series 5, image 220). This measured 3 mm in diameter in 2020. -No new nodules or definite enlarging nodules when compared with the most recent exam. LUNGS: -Lungs otherwise clear aside from the above. No pleural or pericardial effusion. No pneumothorax. MEDIASTINUM: -The thyroid is somewhat prominent. No discrete nodules seen by CT. Similar borderline enlarged nodes in the mediastinum most prominently right paratracheal, however has preserved fatty hilum, but measures 1.3 cm in short axis, entirely unchanged. -The esophagus is fluid-filled and patulous, suggesting reflux. -Aorta is normal. Main pulmonary artery is normal. -Heart size is normal. No pericardial effusion. CORONARY ARTERY CALCIFICATION: None visualized on this study. AXILLA: No lymphadenopathy. UPPER ABDOMEN: -Patient is status post gastric sleeve procedure. There has been a cholecystectomy. -Remainder of the upper abdominal contents image normally. OSSEOUS STRUCTURES: -There is no suspicious lytic or blastic bone lesion. -Similar multilevel thoracic spondylosis. CT/CT chest wo IV con IMPRESSION: 1. Retractile appearing spiculated mass remains unchanged within the right upper lobe, with measurements approximately 4.6 x 3.1 cm in axial plane, with foci of macroscopic fat as well as dystrophic appearing calcifications contained within. 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 Dilatation and fluid-filled esophagus is supportive of this differential, suggesting chronic reflux. However, given the occurrence along staple line, differential includes benign etiologies such as hamartoma, although malignant disease such as low-grade neoplasm or metastatic liposarcoma are not excluded. Sarcoidosis is also a possibility. Ultimately, biopsy would be definitive. 2. Small low attenuating 6 mm mass is stable from the prior within the lateral basal right lower lobe, however in 2020 measured 3 mm. This is also suspect for a hamartoma with differential remaining as above. 3. The presence of centrilobular groundglass foci above the masslike abnormality in the right upper lobe also suggest the possibility of superimposed underlying infectious etiology such as nontuberculous mycobacteria. 4. Stable solitary 1.3 cm enlarged lymph node in the paratracheal region, likely reactive given preservation of fatty hilum. 5. Additional ancillary findings as discussed in the body of the report. Electronically signed by: Kwasi Pradhan MD 02/14/2024 12:14 PM SANJU
== END 2023-12-20 15:28 | disposition home or self-care (01) ==
LOC: HO.CT 15:27
PROVIDERS: PCP Internal Medicine; Visit Provider Hospitalist
DX: R91.8 Other nonspecific abnormal finding of lung field (principal)
CPT/HCPCS: 71250

== ENCOUNTER → 2023-12-20 15:29 | Outpatient (BNV) | payer BC, SELFPAY | PROVIDERS: PCP Internal Medicine; Visit Provider Radiology Diagnostic Radiology | DX: R91.8 Other nonspecific abnormal finding of lung field (principal) | CPT/HCPCS: 71250 ==

== ENCOUNTER 2024-01-06 15:14 | Outpatient (AMB) | payer BC, SELFPAY ==
--- NOTE | 2024-01-06 15:21 | A.OFFPC_ITS ---
Vital Signs 01/06/24 15:23 Height 5 ft 2 in Weight 208 lb BMI 38.0 BP 110/70 Blood Pressure Location Lt brachial Position Sitting Pulse 72 Pulse Source Pulse Oximeter Pulse Oximetry (%) 99 Oxygen Delivery Method Room Air Intake Visit Reasons: Regular visit Intake Note: Patient is here to follow up on IBS, Obesity, Fibromyalgia, ÁNGELA, ILD. Pt is request for referral to weight management and weight loss medication. 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: Not Required per policy Accompanied by: Self / Same As Patient Allergies levofloxacin Allergy (Severe, Verified 01/07/24 04:44) hives Medication List - Last Reconciled 01/07/24 by Royce Wild MD albuterol sulfate 90 mcg/actuation 2 puffs PO Q6H PRN albuterol sulfate 2.5 mg (3 mL) inhalation Q6H PRN biotin 5 mg PO DAILY budesonide 0.5 mg (2 mL) inhalation BID budesonide-formoterol 160-4.5 mcg/actuation 2 puffs PO BID cholecalciferol (vitamin D3) 125 mcg PO DAILY duloxetine 30 mg PO DAILY 30 days eszopiclone (Lunesta) 1 mg PO BEDTIME 90 days famotidine 40 mg PO BEDTIME folic acid 1 mg PO DAILY 90 days gabapentin 600 mg PO BEDTIME PRN lidocaine 5% (Lidoderm) 1 patch topical DAILY 30 days [id number]-[id number] 36,000-114,000- 180,000 unit (Creon) 1 cap PO QID lubiprostone 16 mcg (2 x 8 mcg) PO BID meclizine 25 mg PO TID-QID mecobalamin (vitamin B12) 1,000 mcg sublingual DAILY nebulizers As directed omeprazole 40 mg PO DAILY Orencia ClickJect (abatacept) 125 mg subcut QWEEK NS oxycodone 5 mg PO Q8H PRN 10 days prednisone 20 mg (2 x 10 mg) PO DAILY semaglutide (Ozempic) 1 mg (0.75 mL) subcut QWEEK simethicone 180 mg PO QID 30 days Tobacco use date assessed: 01/06/24 Dental Screening Dental Screen Date: 10/17/23 HPI Regular visit HPI Details 53-year-old female presents to the offic e to discuss issues about weight loss. Patient is requesting a prescription of Ozempic for weight loss. She has seropositive rheumatoid arthritis and the combination of prednisone and methotrexate is not allowing her to lose weight. She has tried a bariatric surgery and the band had to be removed for a variety of reasons. The bariatric surgeon has declined to do any further procedures. Unable to lose weight to by the traditional methods of diet and exercise. 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 Pleuritic chest pain Sinusitis Headache Right ankle sprain Ankle pain Chest pain RUQ pain Thyroid nodule Lymphadenopathy Bradycardia Pneumonia BRCA gene positive Chronic idiopathic constipation Post herpetic neuralgia Multinodular thyroid [id number] syndrome Lump of left thigh ÁNGELA (obstructive sleep apnea) Insomnia ILD (interstitial lung disease) Sarcoidosis Dizziness SOB (shortness of breath) Surgical History (Updated 01/07/24 @ 04:49 by Royce Wild MD) H/O colonoscopy (~11/08/22) History of removal of ovarian cyst History of lung surgery History of breast biopsy Hx of abdominoplasty History of laparoscopic adjustable gastric banding History of tubal ligation History of section History of hysterectomy History of cholecystectomy Family History Father Cardiovascular disease Mother Cardiovascular disease Hypertension Thyroid condition History of breast cancer Daughter Thyroid condition Rheumatoid arthritis Sister Thyroid condition Brother Rheumatoid arthritis Maternal Aunt History of breast cancer Maternal Aunt History of breast cancer Maternal Aunt History of breast cancer Maternal Aunt History of breast cancer Social History Housing: House Alcohol intake: current Alcohol intake frequency: holidays/special occasions only Patient Tobacco Use Status: Former Tobacco user Tobacco use type: Cigarette Years Smoked: 15 years quit about 20 years ago e-Cigarette/Vaping Use: Never Used Second Hand Smoke Exposure: Yes service: No Current occupational status: unemployed Current occupation: rt handed Cognitive needs: No Hearing needs: No Vision needs: Yes (Glasses) Questionnaire Thrive Questionnaire Date Thrive assessed: 06/13/23 YENNI-7 AMB Questionnaire YENNI-7 Date YENNI - 7 assessed: 06/13/23 Source: Developed by Drs. Terence Diaz, Leila Hawk, Jani Osborn and colleagues, with an educational ashley from [employer]. Physical exam (Primary Care) Vital Signs: Last Vital Signs Pulse 72 01/06/24 15:23 BP 110/70 01/06/24 15:23 Pulse Ox 99 01/06/24 15:23 Oxygen Delivery Method Room Air 01/06/24 15:23 BMI result Body Mass Index 38.0 Tobacco/Smoking Status: Tobacco use Status Tobacco use date assessed 01/06/24 01/06/24 15:25 Patient Tobacco Use Status Former Tobacco user 01/06/24 15:25 Tobacco use type Cigarette 01/06/24 15:25 e-Cigarette/Vaping Use Never Used 01/06/24 15:25 Thrive Assessment: Date of Thrive Assessment Date Thrive assessed 06/13/23 01/06/24 15:25 Const General: cooperative and healthy appearing Nutritional Appearance: well nourished Orientation/consciousness: patient oriented x3 Limitations: no limitations HENMT Head: Yes normal to inspection Eyes General: appearance normal, both eyes and all related structures Neck Neck: Yes normal visual inspection Chest Chest palpation & inspection: normal palpation of entire chest wall Resp Effort & Inspection: normal respiratory effort Neuro General: patient oriented x3 Coding Level of Care Code Est Pt Level 4 (06158) Complex EM visit Add On G2211 Diagnoses Obesity (BMI 30-39.9) E66.9 Assessment & Plan Assessment & Plan (1) Obesity (BMI 30-39.9): Code(s): E66.9 - Obesity, unspecified Category: Medical Plan: Patient's BMI is greater than 35. A prescription for Ozempic has been written. Patient was counseled on the importance of diet and exercise in addition to taking weight loss medications. If her insurance approves the prescription, further instructions on how to administer the medication will be given. Medications: New semaglutide (Ozempic) 1 mg (0.75 mL) subcut QWEEK 3 mL 1RF
[2024-01-06 15:23] VITALS: BP 110/70; PULSE 72; O2SAT 99; BMI 38.0
== END 2024-01-06 16:49 | disposition home or self-care (01) ==
LOC: HO.HMCH 15:15
PROVIDERS: PCP Internal Medicine; Visit Provider Internal Medicine
DX: E66.9 Obesity, unspecified (principal); Z68.38 Body mass index [BMI] 38.0-38.9, adult

== ENCOUNTER 2024-01-09 12:55 | Outpatient (AMB) | payer BC, SELFPAY ==
--- NOTE | 2024-01-09 13:07 | A.OFFVIS_ITS ---
Vital Signs 01/09/24 13:08 BP 118/68 Blood Pressure Location Lt brachial Position Sitting Pulse 78 Pulse Source Pulse Oximeter Pulse Oximetry (%) 99 Oxygen Delivery Method Room Air Intake Visit Reasons: ILD Allergies levofloxacin Allergy (Severe, Verified 01/09/24 13:10) hives Medication List - Last Reconciled 01/09/24 by Lucretia Mobley, KERRY albuterol sulfate 90 mcg/actuation 2 puffs PO Q6H PRN albuterol sulfate 2.5 mg (3 mL) inhalation Q6H PRN biotin 5 mg PO DAILY budesonide 0.5 mg (2 mL) inhalation BID budesonide-formoterol 160-4.5 mcg/actuation 2 puffs PO BID cholecalciferol (vitamin D3) 125 mcg PO DAILY duloxetine 30 mg PO DAILY 30 days eszopiclone (Lunesta) 1 mg PO BEDTIME 90 days famotidine 40 mg PO BEDTIME folic acid 1 mg PO DAILY 90 days gabapentin 600 mg PO BEDTIME PRN lidocaine 5% (Lidoderm) 1 patch topical DAILY 30 days hnjxft-olpywjan-obzcngn 36,000-114,000- 180,000 unit (Creon) 1 cap PO QID lubiprostone 16 mcg (2 x 8 mcg) PO BID meclizine 25 mg PO TID-QID mecobalamin (vitamin B12) 1,000 mcg sublingual DAILY nebulizers As directed omeprazole 40 mg PO DAILY Orencia ClickJect (abatacept) 125 mg subcut QWEEK NS oxycodone 5 mg PO Q8H PRN 10 days prednisone 20 mg (2 x 10 mg) PO DAILY semaglutide (Ozempic) 1 mg (0.75 mL) subcut QWEEK simethicone 180 mg PO QID 30 days HPI Comments Details: The patient is a 53-year-old woman with a known history of rheumatoid arthritis previously on immunomodulators including methotrexate and Humira. Apparently back in May 05, 2018 the patient developed a tooth abscess needing antibiotics. Subsequently complicated by pneumonia. She was admitted to [facility] which was found to have ground-glass opacities bilaterally consistent with pneumonitis and also nodular densities in the right middle lobe. She was evaluated by Pulmonary at that point. If felt necessary for her to have a bronchoscopy. Apparently I do not have the details of the bronchoscopy which she may have had some bleeding therefore not leading to any biopsies. However, her cultures were all negative for infection. 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 She did undergo a Navagation-guided biopsy of the consolidated lung. Was consistent with non-necrotizing granulomas which is very suspicious of sarcoidosis. The patient has other symptoms in addition to some hair loss she has had some visual loss denies any rashes she has significant arthritis and swelling of her body. The question is if this is related to sarcoid or related to her underlying connective tissue disease. At this point based on the fact that she has failed methotrexate and has significant evidence of sarcoid in addition to interstitial lung disease the patient needs to be placed on immunomodulator therapy. Therefore, I will send her CellCept. Patient also will take prednisone in the meantime. I did speak to her anesthetist about this. She is scheduled to undergo a CT scan of chest the end of this month. Will see if the medication is helping some size some of the findings. Apparently she was started on CellCept to help her with her inflammatory autoimmune condition. However, after starting the small dose of 500 twice a day the patient started having multiple complaints including lightheadedness, nausea vomiting, memory loss and weakness. She was not started on any other medicine. Therefore the patient came in to be evaluated. She also stop the prednisone about a day ago. She started to develop significant swelling of her hands and risk. Right more than left. She does have a CT scan of the scan plan for the beginning of May. At this point the av request the patient stop the medicine. I will provide her Solu-Medrol 125 mg IM and she should restart the prednisone. I will also refer the patient to the sarcoid clinic at [facility]. Based on the fact the patient has tried and failed methotrexate and now mycophenolate I do not believe immunomodulators are good option for her. Therefore, based on the fact that she has a do a diagnosis of both sarcoidosis and rheumatoid arthritis I do believe using Remicade may be a reasonable option. I will reach out to her anesthetist at this time. We did discuss her CT scan that she had recently demonstrating interval improvement in her areas of consolidation which is reassuring. 04/30/2022 the patient is here for a pulmonary follow-up visit. She is complaining of worsening pleuritic chest discomfort. She had been well until recently and she became sick with likely a viral syndrome. She has been coughing more. She has been concerned because now her pleuritic discomfort that typically is only on her right side now also involving her left. Denies any significant mucus production at this time. Denies any significant shortness of breath. She is scheduled to see Rheumatology sometime this week. Therefore, explained to her that be best to hold off on any steroid therapy that may interfere with the analysis that will be required. Therefore will work on pain management and also request a chest x-ray. If she has has worsening findings on the x-ray but no be reasonable to treat her more urgently. 07/02/2022 the patient is here for a pulmonary follow-up visit. She is complaining of worsening pleuritic chest discomfort. Moderate in severity. Not any worse. Was referred to pain clinic. Last CT ches was in 01/2022 with lumg mass. She will be starting Orencia soon. Will plan to repeat CT chest after 3-4 month of therapy. Has not required any prednisone. She is confused with her diagnosis. I reassured her that based on her biopsy with non necrotizing granulomas consistent with a sarcoid like activity. Likely a manifestation of her autoimmune disease. Does not appear to be consistent with medication induced or smoldering infections. She also has difficulty sleeping. She is using Lunesta as needed. Currently helping taking care of a so she is not using it as often. 11/13/2022 the patient is here for pulmonary follow-up visit. She continues to have worsening pleuritic discomfort. Moderate to severe. The patient is very discouraged rate now. Her discomfort is primarily on the right side. She is working closely with pain management. In the meantime she did have a CT scan of the chest that I personally reviewed. It appears that the right-sided masslike density has increased in size. Again the biopsy was suggestive of a sarcoid like reaction. She did follow-up with Rheumatology. Appears that her blood work is consistent with rheumatoid arthritis. She was prescribed Orencia however, the patient has not been able to start the medication as of yet. The patient has been off all CellCept and also has not been on any prednisone. Explained to her that with this inflammatory process she does need a component of anti-inflammatory therapy. The patient is also having pain. At this point will provide her with analgesia to provide her with some relief. the patient will start the prednisone and subsequently hopefully start the Orencia soon in order to repeat the CT scan in 3 months time. If the patient does not respond to therapy then referral to [facility] will requested. 02/14/2023 The patient has a telehealth visit. She started developing flu like symptoms 3 days ago. She went to the ED and sent home, then she tested with ahome test and has positive for covid yesterday. Having more asthma symptoms. She had been taking Orencia for her RA and had been on prednisone 20mg. But she has been off the Orencia and also the prednisone. She will be starting Paxlovid x 5 days. We did review her CT cest, It is reassuring that her mass like density has not changed. Although, she does have a new pulmonary nodule. Appears to be in a vascular distribution and would benefit in a CT chest with IV contrast for the next evaluation. She continues to have pain and does respond well to the oxycodone. She also recently fractured her toe and is recovering for that as well. 07/08/2023 the patient is here for a pulmonary follow-up visit. Overall she is doing fairly well. She has been active and changing her lifestyle and exercising. She is lost some weight which is reassuring. Her breathing is stable. Her arthritis is also stable. She continues on the Orencia. She also continues on a small dose of prednisone. Seems to be tolerating well. 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 We did review her recent CT scan of the chest and also compared to the CT scan that she had back in the fall and also late summer. This was in 2022. Appears that the masslike density it slowly decreasing in size. He still spiculated still has nodular densities surrounding it. This is by on biopsied couple times and is negative for any malignant process although still a concerning the can mask. I am reassured that with the biopsies and I am reassured with the fact that has not been increasing in size. No significant lymphadenopathy that I can appreciate. The other ground-glass areas are better. Therefore will repeat the CT scan in 6 months and she will continue with current therapy. 01/09/2024 the patient is here for a pulmonary follow-up visit. She is having worsening right-sided chest discomfort. She is having to use the oxycodone more often. The amount of medication is not lasting. She continues on the Orencia. Does not seem to be as effective. She also requires prednisone for her arthritis at times. She did have repeat CT scan of the chest in December. Has not been officially read unfortunately. I did review it and compared to her previous CT scan. Does not appear to be any significant changes. The patient is wondering if there is a way to remove that area. I am concerned because she is already has had surgery in without any significant improvement. Initially the thought was that she had a sarcoid like reaction she was sent to the sarcoid Clinic although was not clear if she truly sarcoid or just a sarcomatoid reaction. Most likely related to connective tissue disease. At this point will go ahead and refer her to [facility] to have her be evaluated by the interstitial disease clinic there to see if any other potential options for her specially since she still continues to have significant discomfort. 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 The patient does have some concerns if this is cancer although he has been biopsy-proven that this is inflammatory process. Does not seem to be changing significantly. [facility] Medical History (Updated 01/09/24 @ 13:18 by Manolo Briggs MD) Lung mass Obesity (BMI 30-39.9) COVID-19 Cervical mass Intercostal neuralgia Mixed connective tissue disease Transaminitis Sarcoidosis Class 2 severe obesity with body mass index (BMI) of 35 to 39.9 with serious comorbidity Closed fracture of phalanx of right fourth toe Toe fracture, right Right foot pain Toe pain, right Hot flashes Low libido Pre-op examination Adult general medical exam Diarrhea Screening for breast cancer Cervical cancer screening Screening for colon cancer 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, unspecified devil tender systemic steroid user Pleuritic chest pain Sinusitis Headache Right ankle sprain Ankle pain Chest pain RUQ pain Thyroid nodule Lymphadenopathy Bradycardia Pneumonia BRCA gene positive Chronic idiopathic constipation Post herpetic neuralgia Multinodular thyroid [id number] syndrome Lump of left thigh ÁNGELA (obstructive sleep apnea) Insomnia ILD (interstitial lung disease) Sarcoidosis Dizziness SOB (shortness of breath) Surgical History (Updated 01/07/24 @ 04:49 by Royce Wild MD) H/O colonoscopy (~11/08/22) History of removal of ovarian cyst History of lung surgery History of breast biopsy Hx of abdominoplasty History of laparoscopic adjustable gastric banding History of tubal ligation History of section History of hysterectomy History of cholecystectomy Family History Father Cardiovascular disease Mother Cardiovascular disease Hypertension Thyroid condition History of breast cancer Daughter Thyroid condition Rheumatoid arthritis Sister Thyroid condition Brother Rheumatoid arthritis Maternal Aunt History of breast cancer Maternal Aunt History of breast cancer Maternal Aunt History of breast cancer Maternal Aunt History of breast cancer Social History Housing: House Alcohol intake: current Alcohol intake frequency: holidays/special occasions only Patient Tobacco Use Status: Former Tobacco user Tobacco use type: Cigarette Years Smoked: 15 years quit about 20 years ago e-Cigarette/Vaping Use: Never Used Second Hand Smoke Exposure: Yes service: No Current occupational status: unemployed Current occupation: rt handed Cognitive needs: No Hearing needs: No Vision needs: Yes (Glasses) Review of Systems Const Denies chills, Reports headache(s) and Denies weight loss ENT Reports headache(s) Card Reports chest pain, Denies syncope, Denies irregular heart rhythm and Denies dyspnea Resp Denies chest congestion, Reports cough, Reports pain on inspiration, Reports pain with cough, Denies dyspnea and Reports wheezing GI Denies abdominal pain, Denies change in stool character, Denies nausea and Denies vomiting Musc Denies deformity and Denies joint swelling Neuro Denies syncope and Reports headache(s) Aller/Immun Reports wheezing Physical Exam Vital Signs: Last Vital Signs Pulse 78 01/09/24 13:08 BP 118/68 01/09/24 13:08 Pulse Ox 99 01/09/24 13:08 Oxygen Delivery Method Room Air 01/09/24 13:08 Const General: comfortable and alert HEENT Head: Yes normal to inspection Ears: TM abnormal with fluid behind the TM (minimal) bilateral General nose exam: Abnormal mucous membranes and turbinates present erythematous Face and sinus: Yes sinus tenderness and Yes Facial tenderness on exam of face and sinuses Throat: Yes postnasal drainage and Yes cobblestoning Neck Neck: Yes normal visual inspection, Yes full ROM and Yes no lymphadenopathy Chest Chest palpation & inspection: normal inspection of the chest Resp Effort & Inspection: normal respiratory effort Auscultation: diminished lung sounds Cardio Rate: regular rate Rhythm: regular rhythm Heart sounds: S1 normal heart sound present and S2 normal heart sound present GI Palpation (GI): Soft to palpation and nontender Auscultation: normal bowel sounds Skin General skin exam: rashes and/or lesions noted Results Reviewed Results Reviewed: personally reviewed CT chest 12/2023 with persistent ill defined mass like density in the right hemithorax, post op changes and adjacent pulmonary nodules Assessment & Plan Assessment & Plan (1) ILD (interstitial lung disease): Code(s): J84.9 - Interstitial pulmonary disease, unspecified Category: Medical (2) Seropositive rheumatoid arthritis: Comment: +++RF+++CCP Onset early 2014. SSZ started 02/15 - stopped due diarrhea MTX taken briefly 2015- May 2015? MTX restarted 07/18- changed to SC Dec 2016 due to nausea Humira added 02/18 to methotrexate. Both stopped 04/22 due to infection. Humira was suspected to have caused lung issues (?drug induced sarcoid) MTX and Humira remained held 03/23 04/23: Cellcept started by pulmonary - GI side effects, confusion so it was stopped 07/21 methotrexate and Humira restarted stopped sometime in 2020 Imuran briefly, not sure what happened with that 2020 Orencia attempted got denied. Approved 07/2022, started 01/2023 effective Code(s): M05.9 - Rheumatoid arthritis with rheumatoid factor, unspecified Category: Medical (3) Sarcoidosis: Comment: Sarcoid like reaction secondary auto-immune disease versus a medication reaction while taking the TNF inhibitor Code(s): D86.9 - Sarcoidosis, unspecified Category: Medical (4) Lung mass: Comment: Surgical biopsy with a combination of granulomas, organizing pneumonia and lipid aspiration Code(s): R91.8 - Other nonspecific abnormal finding of lung field Category: Medical Plan Pain control: Lidoderm patch, percocet continue Prednisone continue Orencia PPI reflux diet Lunesta as needed for sleep F/U with Rheumatology refer to [facility] for 2nd opinion. complains from pain from the site although, I suspect that she has a component of Post Thoracotomy syndrome. Doubt that further surgical intervention would be helpful. The patient would like that whole mass resected. Follow-up in 3-4 months Orders: Orders Immunoglobulin G Subclasses Today R91.8 - Other nonspecific abnormal finding of lung field Immunoglobulin E Today R91.8 - Other nonspecific abnormal finding of lung field Hypersensitive Pneumonitis Prf Today R91.8 - Other nonspecific abnormal finding of lung field Cortisol Random Today R91.8 - Other nonspecific abnormal finding of lung field Complete Blood Count Auto Diff Today R91.8 - Other nonspecific abnormal finding of lung field Basic Metabolic Panel Today R91.8 - Other nonspecific abnormal finding of lung field Erythrocyte Sedimentation Rate Today R91.8 - Other nonspecific abnormal finding of lung field Immunoglobulins,IgG IgA IgM Today R91.8 - Other nonspecific abnormal finding of lung field Referrals Pulmonology Referral D86.9 - Sarcoidosis, unspecified, J84.9 - Interstitial pulmonary disease, unspecified, M05.9 - Rheumatoid arthritis with rheumatoid factor, unspecified, R91.8 - Other nonspecific abnormal finding of lung field Medications: Changed From oxycodone Partial Fill upon patient request. 5 mg PO Q8H 10 days PRN 30 tabs 0RF pain R91.8 - Other nonspecific abnormal finding of lung field To oxycodone Partial Fill upon patient request. 5 mg PO Q6H 10 days PRN 40 tabs 0RF pain R91.8 - Other nonspecific abnormal finding of lung field Coding Level of Care Code Est Pt Level 5 (24088) Diagnoses ILD (interstitial lung disease) J84.9 Seropositive rheumatoid arthritis M05.9 Sarcoidosis D86.9 Lung mass R91.8 Time Spent (min) 25
[2024-01-09 13:08] VITALS: BP 118/68; PULSE 78; O2SAT 99
== END 2024-01-09 13:26 | disposition home or self-care (01) ==
LOC: HO.HPS 12:56
PROVIDERS: PCP Nurse Practitioner Family; Visit Provider Hospitalist
DX: J84.9 Interstitial pulmonary disease, unspecified (principal); R91.8 Other nonspecific abnormal finding of lung field; D86.9 Sarcoidosis, unspecified; M05.9 Rheumatoid arthritis with rheumatoid factor, unspecified
CPT/HCPCS: 99214

== ENCOUNTER → 2024-04-14 15:57 | Outpatient (AMB) | payer BC, SELFPAY ==
--- NOTE | 2024-04-14 15:26 | MHC.OFFVIS ---
Vital Signs 04/14/24 15:27 Height 5 ft 2 in Weight 208 lb 5.389 oz BMI 38.1 BP 132/80 Blood Pressure Location Rt brachial Position Sitting Pulse 85 Pulse Source Pulse Oximeter Pulse Oximetry (%) 100 Oxygen Delivery Method Room Air Intake Visit Reasons: ILD Allergies levofloxacin Allergy (Severe, Verified 04/14/24 15:29) hives HPI Comments Details: The patient is a 53-year-old woman with a known history of rheumatoid arthritis previously on immunomodulators including methotrexate and Humira. Apparently back in May 05, 2018 the patient developed a tooth abscess needing antibiotics. Subsequently complicated by pneumonia. She was admitted to [facility] which was found to have ground-glass opacities bilaterally consistent with pneumonitis and also nodular densities in the right middle lobe. She was evaluated by Pulmonary at that point. If felt necessary for her to have a bronchoscopy. Apparently I do not have the details of the bronchoscopy which she may have had some bleeding therefore not leading to any biopsies. However, her cultures were all negative for infection. Subsequently after that she developed worsening nodular densities in the right upper lobe and also again the right middle lobe on repeat CT scans of the chest and therefore the patient was referred to additional auto repair technician and also referred to thoracic surgery. She did undergo a Navagation-guided biopsy of the consolidated lung. Was consistent with non-necrotizing granulomas which is very suspicious of sarcoidosis. The patient has other symptoms in addition to some hair loss she has had some visual loss denies any rashes she has significant arthritis and swelling of her body. The question is if this is related to sarcoid or related to her underlying connective tissue disease. At this point based on the fact that she has failed methotrexate and has significant evidence of sarcoid in addition to interstitial lung disease the patient needs to be placed on immunomodulator therapy. Therefore, I will send her CellCept. Patient also will take prednisone in the meantime. I did speak to her joy operator about this. She is scheduled to undergo a CT scan of chest the end of this month. Will see if the medication is helping some size some of the findings. Apparently she was started on CellCept to help her with her inflammatory autoimmune condition. However, after starting the small dose of 500 twice a day the patient started having multiple complaints including lightheadedness, nausea vomiting, memory loss and weakness. She was not started on any other medicine. Therefore the patient came in to be evaluated. She also stop the prednisone about a day ago. She started to develop significant swelling of her hands and risk. Right more than left. She does have a CT scan of the scan plan for the beginning of May. At this point the av request the patient stop the medicine. I will provide her Solu-Medrol 125 mg IM and she should restart the prednisone. I will also refer the patient to the sarcoid clinic at [facility]. Based on the fact the patient has tried and failed methotrexate and now mycophenolate I do not believe immunomodulators are good option for her. Therefore, based on the fact that she has a do a diagnosis of both sarcoidosis and rheumatoid arthritis I do believe using Remicade may be a reasonable option. I will reach out to her joy operator at this time. We did discuss her CT scan that she had recently demonstrating interval improvement in her areas of consolidation which is reassuring. 04/30/2022 the patient is here for a pulmonary follow-up visit. She is complaining of worsening pleuritic chest discomfort. She had been well until recently and she became sick with likely a viral syndrome. She has been coughing more. She has been concerned because now her pleuritic discomfort that typically is only on her right side now also involving her left. Denies any significant mucus production at this time. Denies any significant shortness of breath. She is scheduled to see Rheumatology sometime this week. Therefore, explained to her that be best to hold off on any steroid therapy that may interfere with the analysis that will be required. Therefore will work on pain management and also request a chest x-ray. If she has has worsening findings on the x-ray but no be reasonable to treat her more urgently. 07/02/2022 the patient is here for a pulmonary follow-up visit. She is complaining of worsening pleuritic chest discomfort. Moderate in severity. Not any worse. Was referred to pain clinic. Last CT ches was in 01/2022 with lumg mass. She will be starting Orencia soon. Will plan to repeat CT chest after 3-4 month of therapy. Has not required any prednisone. She is confused with her diagnosis. I reassured her that based on her biopsy with non necrotizing granulomas consistent with a sarcoid like activity. Likely a manifestation of her autoimmune disease. Does not appear to be consistent with medication induced or smoldering infections. She also has difficulty sleeping. She is using Lunesta as needed. Currently helping taking care of a so she is not using it as often. 11/13/2022 the patient is here for pulmonary follow-up visit. She continues to have worsening pleuritic discomfort. Moderate to severe. The patient is very discouraged rate now. Her discomfort is primarily on the right side. She is working closely with pain management. In the meantime she did have a CT scan of the chest that I personally reviewed. It appears that the right-sided masslike density has increased in size. Again the biopsy was suggestive of a sarcoid like reaction. She did follow-up with Rheumatology. Appears that her blood work is consistent with rheumatoid arthritis. She was prescribed Orencia however, the patient has not been able to start the medication as of yet. The patient has been off all CellCept and also has not been on any prednisone. Explained to her that with this inflammatory process she does need a component of anti-inflammatory therapy. The patient is also having pain. At this point will provide her with analgesia to provide her with some relief. the patient will start the prednisone and subsequently hopefully start the Orencia soon in order to repeat the CT scan in 3 months time. If the patient does not respond to therapy then referral to [facility] will requested. 02/14/2023 The patient has a telehealth visit. She started developing flu like symptoms 3 days ago. She went to the ED and sent home, then she tested with ahome test and has positive for covid yesterday. Having more asthma symptoms. She had been taking Orencia for her RA and had been on prednisone 20mg. But she has been off the Orencia and also the prednisone. She will be starting Paxlovid x 5 days. We did review her CT cest, It is reassuring that her mass like density has not changed. Although, she does have a new pulmonary nodule. Appears to be in a vascular distribution and would benefit in a CT chest with IV contrast for the next evaluation. She continues to have pain and does respond well to the oxycodone. She also recently fractured her toe and is recovering for that as well. 07/08/2023 the patient is here for a pulmonary follow-up visit. Overall she is doing fairly well. She has been active and changing her lifestyle and exercising. She is lost some weight which is reassuring. Her breathing is stable. Her arthritis is also stable. She continues on the Orencia. She also continues on a small dose of prednisone. Seems to be tolerating well. 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 We did review her recent CT scan of the chest and also compared to the CT scan that she had back in the fall and also late summer. This was in 2022. Appears that the masslike density it slowly decreasing in size. He still spiculated still has nodular densities surrounding it. This is by on biopsied couple times and is negative for any malignant process although still a concerning the can mask. I am reassured that with the biopsies and I am reassured with the fact that has not been increasing in size. No significant lymphadenopathy that I can appreciate. The other ground-glass areas are better. Therefore will repeat the CT scan in 6 months and she will continue with current therapy. 01/09/2024 the patient is here for a pulmonary follow-up visit. She is having worsening right-sided chest discomfort. She is having to use the oxycodone more often. The amount of medication is not lasting. She continues on the Orencia. Does not seem to be as effective. She also requires prednisone for her arthritis at times. She did have repeat CT scan of the chest in December. Has not been officially read unfortunately. I did review it and compared to her previous CT scan. Does not appear to be any significant changes. The patient is wondering if there is a way to remove that area. I am concerned because she is already has had surgery in without any significant improvement. Initially the thought was that she had a sarcoid like reaction she was sent to the sarcoid Clinic although was not clear if she truly sarcoid or just a sarcomatoid reaction. Most likely related to connective tissue disease. At this point will go ahead and refer her to [facility] to have her be evaluated by the interstitial disease clinic there to see if any other potential options for her specially since she still continues to have significant discomfort. I do believe that part of the discomfort is the postthoracotomy syndrome so more surgery may result in more discomfort. The patient does have some concerns if this is cancer although he has been biopsy-proven that this is inflammatory process. Does not seem to be changing significantly. 04/14/2024 the patient is here for pulmonary follow-up visit. She continues to have persistent pain in that site. It is moderate to severe. Sometimes it keeps her from falling sleep. She has been on oxycodone I did have to increase the frequency of the oxycodone because her pain was getting worse. Although I do not like to prescribe this medication is seems to be providing her some relief. In addition to that she has the prednisone prescription. She does not take it all the time only when she has a flare-up. also, when she has flare up she does develop induration send her scan primarily around the elbows. Very suspicious for rheumatoid nodules although sarcoid can also manifest in the skin. She is also continues on the Orencia. She is now establishing care in [place] because of her complexity of disease. We will be helpful to see if she can see Rheumatology also [place]. She was evaluated by Pulmonary at [facility]. They still need the pathology. She has had multiple pathologies done last time was from bronchoscopy that I performed with transbronchial biopsies just demonstrating some chronic inflammation although nondiagnostic. She did have a surgical biopsy this was done at [facility]. Will try to get the pathology reports in the specimen sent to bringing woman so they can review it. She is going to have another CT scan but this will be done at [facility]. Otherwise patient is without any other complaints. [facility] Medical History (Updated 01/09/24 @ 13:18 by Manolo Briggs MD) Lung mass Obesity (BMI 30-39.9) COVID-19 Cervical mass Intercostal neuralgia Mixed connective tissue disease Transaminitis Sarcoidosis Class 2 severe obesity with body mass index (BMI) of 35 to 39.9 with serious comorbidity Closed fracture of phalanx of right fourth toe Toe fracture, right Right foot pain Toe pain, right Hot flashes Low libido Pre-op examination Adult general medical exam Diarrhea Screening for breast cancer Cervical cancer screening Screening for colon cancer 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, unspecified 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 Pleuritic chest pain Sinusitis Headache Right ankle sprain Ankle pain Chest pain RUQ pain Thyroid nodule Lymphadenopathy Bradycardia Pneumonia BRCA gene positive Chronic idiopathic constipation Post herpetic neuralgia Multinodular thyroid [id number] syndrome Lump of left thigh ÁNGELA (obstructive sleep apnea) Insomnia ILD (interstitial lung disease) Sarcoidosis Dizziness SOB (shortness of breath) Surgical History (Updated 01/07/24 @ 04:49 by Royce Wild MD) H/O colonoscopy (~11/08/22) History of removal of ovarian cyst History of lung surgery History of breast biopsy Hx of abdominoplasty History of laparoscopic adjustable gastric banding History of tubal ligation History of section History of hysterectomy History of cholecystectomy Family History Father Cardiovascular disease Mother Cardiovascular disease Hypertension Thyroid condition History of breast cancer Daughter Thyroid condition Rheumatoid arthritis Sister Thyroid condition Brother Rheumatoid arthritis Maternal Aunt History of breast cancer Maternal Aunt History of breast cancer Maternal Aunt History of breast cancer Maternal Aunt History of breast cancer Social History Housing: House Alcohol intake: current Alcohol intake frequency: holidays/special occasions only Patient Tobacco Use Status: Former Tobacco user Tobacco use type: Cigarette Years Smoked: 15 years quit about 20 years ago e-Cigarette/Vaping Use: Never Used Second Hand Smoke Exposure: Yes service: No Current occupational status: unemployed Current occupation: rt handed Cognitive needs: No Hearing needs: No Vision needs: Yes (Glasses) Review of Systems Const Denies chills, Reports headache(s) and Denies weight loss ENT Reports headache(s) Card Reports chest pain, Denies syncope, Denies irregular heart rhythm and Denies dyspnea Resp Denies chest congestion, Reports cough, Reports pain on inspiration, Reports pain with cough, Denies dyspnea and Reports wheezing GI Denies abdominal pain, Denies change in stool character, Denies nausea and Denies vomiting Musc Denies deformity and Denies joint swelling Neuro Denies syncope and Reports headache(s) Aller/Immun Reports wheezing Physical Exam Vital Signs: Last Vital Signs Pulse 85 04/14/24 15:27 BP 132/80 04/14/24 15:27 Pulse Ox 100 04/14/24 15:27 Oxygen Delivery Method Room Air 04/14/24 15:27 BMI result Body Mass Index 38.1 Const General: comfortable and alert HEENT Head: Yes normal to inspection Ears: TM abnormal with fluid behind the TM (minimal) bilateral General nose exam: Abnormal mucous membranes and turbinates present erythematous Face and sinus: Yes sinus tenderness and Yes Facial tenderness on exam of face and sinuses Throat: Yes postnasal drainage and Yes cobblestoning Neck Neck: Yes normal visual inspection, Yes full ROM and Yes no lymphadenopathy Chest Chest palpation & inspection: normal inspection of the chest Resp Effort & Inspection: normal respiratory effort Auscultation: diminished lung sounds Cardio Rate: regular rate Rhythm: regular rhythm Heart sounds: S1 normal heart sound present and S2 normal heart sound present GI Palpation (GI): Soft to palpation and nontender Auscultation: normal bowel sounds Skin General skin exam: rashes and/or lesions noted Assessment & Plan Assessment & Plan (1) ILD (interstitial lung disease): Code(s): J84.9 - Interstitial pulmonary disease, unspecified Category: Medical (2) Seropositive rheumatoid arthritis: Comment: +++RF+++CCP Onset early 2014. SSZ started 02/15 - stopped due diarrhea MTX taken briefly 2015- May 2015? MTX restarted 07/18- changed to SC Dec 2016 due to nausea Humira added 02/18 to methotrexate. Both stopped 04/22 due to infection. Humira was suspected to have caused lung issues (?drug induced sarcoid) MTX and Humira remained held 03/23 04/23: Cellcept started by pulmonary - GI side effects, confusion so it was stopped 07/21 methotrexate and Humira restarted stopped sometime in 2020 Imuran briefly, not sure what happened with that 2020 Orencia attempted got denied. Approved 07/2022, started 01/2023 effective Code(s): M05.9 - Rheumatoid arthritis with rheumatoid factor, unspecified Category: Medical (3) Sarcoidosis: Comment: Sarcoid like reaction secondary auto-immune disease versus a medication reaction while taking the TNF inhibitor Code(s): D86.9 - Sarcoidosis, unspecified Category: Medical (4) Lung mass: Comment: Surgical biopsy with a combination of granulomas, organizing pneumonia and lipid aspiration Code(s): R91.8 - Other nonspecific abnormal finding of lung field Category: Medical Plan Pain control: Lidoderm patch, percocet Gabapentin for sleep continue Prednisone continue Orencia PPI reflux diet Lunesta as needed for sleep F/U with Rheumatology CT chest at [facility] Follow-up in 3-4 months Medications: Changed From gabapentin 600 mg PO BEDTIME PRN Pain To gabapentin 600 mg (2 x 300 mg) PO BEDTIME PRN 60 caps 11RF Pain 30 days Refilled oxycodone Partial Fill upon patient request. 5 mg PO Q6H PRN 40 tabs 0RF pain 10 days R91.8 - Other nonspecific abnormal finding of lung field Coding Level of Care Code Est Pt Level 5 (07661) Complex EM visit Add On G2211 Diagnoses ILD (interstitial lung disease) J84.9 Seropositive rheumatoid arthritis M05.9 Sarcoidosis D86.9 Lung mass R91.8 Time Spent (min) 30
[2024-04-14 15:27] VITALS: BP 132/80; PULSE 85; O2SAT 100; BMI 38.1
== END | disposition home or self-care (01) ==
PROVIDERS: PCP Nurse Practitioner Family; Visit Provider Hospitalist
DX: J84.9 Interstitial pulmonary disease, unspecified (principal); D86.9 Sarcoidosis, unspecified; R91.8 Other nonspecific abnormal finding of lung field; M05.9 Rheumatoid arthritis with rheumatoid factor, unspecified
CPT/HCPCS: 99214

== ENCOUNTER 2024-05-26 09:42 | Outpatient (REF) | payer BC, SELFPAY ==
[2024-05-26 09:58] LABS: MANUAL DIFF FLAG NO
[2024-05-26 10:40] LABS: Basophils Percent Auto 0.6 % (0-2); Eosinophils Absolute Auto 0.1 X10*3/uL (0.0-0.4); Eosinophils Percent Auto 1.6 % (0-4); Hematocrit 38.8 % (37.0-47.0); Hemoglobin 13.1 g/dl (12.0-16.0); Imm Gran Abs Auto 0.01 X10*3/uL (0.00-0.03); Imm Gran Pct Auto 0.2 % (0.0-0.4); Lymphocytes Absolute Auto 1.6 X10*3/uL (1.2-4.9); Lymphocytes Percent Auto 30.6 % (20-40); Mean Corpuscular HGB Conc 33.8 g/dl (31.0-35.0); Mean Platelet Volume 10.9 fL (9.4-12.3); Monocytes Absolute Auto 0.4 X10*3/uL (0.1-1.2); Monocytes Percent Auto 8.6 % (2-11); Neutrophils Percent Auto 58.4 % (45-73); Platelet Count 211 X10*3/uL (160-400); Red Blood Count 4.36 X10*6/uL (4.20-5.50); Red Cell Distribution Width 12.5 % (11.0-16.0); White Blood Count 5.1 X10*3/uL (4.8-10.8)
[2024-05-26 11:19] LABS: Erythrocyte Sedimentation Rate 14 MM/HR (0-20)
[2024-05-26 11:46] LABS: Alanine Aminotransferase 16 U/L (0-31); Albumin Level 3.9 g/dL (3.5-5.0); Alkaline Phosphatase 107 U/L (39-117); Anion Gap 11 (12-20); Aspartate Amino Transferase 24 U/L (5-31); Bilirubin Total 0.8 mg/dL (0.0-1.0); Blood Urea Nitrogen 13 mg/dL (9-16); Carbon Dioxide 26 mmol/L (22-29); Chloride 109 mmol/L (96-108); Estimated Glomerular Filt Rate > 60; Glucose Random 83 mg/dL (60-115); Sodium 142 mmol/L (135-145); Total Protein 6.9 g/dL (6.5-8.0)
[2024-05-26 12:10] LABS: Cortisol Random 5.8 ug/dL
[2024-05-26 12:23] LABS: HBS Num1 1.11 mIU/mL (0-7.99); HBc Num1 0.46 S/CO (0.00-0.79); HBsAGNum1 0.34 S/CO (0.00-0.99); Hepatitis A Antibody IgM 0.18 Index (0-0.79); Hepatitis B Core Antibody Nonreactive (Nonreactive); Hepatitis B Surface Antigen Negative (Negative); ~HepC Num1 0.44 S/CO (0.00-0.79); ~Hepatitis A Antibody IgM Nonreactive (Nonreactive); ~Hepatitis B Surface Antibody NONREACTIVE (Nonreactive); ~Hepatitis C Antibody Nonreactive (Nonreactive)
[2024-05-27 17:49] LABS: IgA 138 mg/dL (47-310); IgG 1342 mg/dL (600-1640); IgM 141 mg/dL (50-300)
[2024-05-28 22:18] LABS: TS Negative Control Passed; TS Panel A 0; TS Panel B 0; TS Positive Control Passed; TSpotTB Negative (Negative)
[2024-06-02 12:34] LABS: Asperg fumigatus Precip Abs NEGATIVE (NEGATIVE); Micropoly faeni Abs NEGATIVE (NEGATIVE); Pigeon serum Abs NEGATIVE (NEGATIVE); Saccharo pora viridis Abs NEGATIVE (NEGATIVE); Thermo candidus Abs NEGATIVE (NEGATIVE); Thermoa vulgaris #1 NEGATIVE (NEGATIVE)
[2024-06-05 15:44] LABS: Immunoglobulin G Subclass 1 728 mg/dL (382-929); Immunoglobulin G Subclass 2 300 mg/dL (241-700); Immunoglobulin G Subclass 3 122 mg/dL (22-178); Immunoglobulin G Subclass 4 33.9 mg/dL (4-86); Immunoglobulin G Total 1206 mg/dL (600-1640)
== END 2024-05-26 09:43 | disposition home or self-care (01) ==
LOC: HO.LAB 09:42
PROVIDERS: Student in an Organized Health Care Education/Training Program; PCP Internal Medicine; Visit Provider Hospitalist
DX: M05.9 Rheumatoid arthritis with rheumatoid factor, unspecified (principal); R91.8 Other nonspecific abnormal finding of lung field
CPT/HCPCS: 36415; 80053; 82533; 82784; 82785; 85025; 85652; 86140; 86331; 86481; 86606; 86609; 86704; 86706; 86709; 86803; 87340

== ENCOUNTER 2024-06-10 10:04 | Outpatient (REF) | payer BC, SELFPAY ==
--- NOTE | ~2024-06-10 | CT_ITS ---
EXAMINATION: CT CHEST WITH CONTRAST CLINICAL INFORMATION: Right upper lobe mass. COMPARISON: December 20, 2023. TECHNIQUE: Multidetector volumetric CT imaging of the chest was obtained after the administration of 65 mL of Omnipaque 350 intravenous contrast without immediate adverse reactions. Axial MIP volume rendering provided. Sagittal and coronal reformatted images were obtained. This CT examination was performed using dose optimization techniques as appropriate, variously including the following: *Automated exposure control *Adjustment of mA and/or kV according to patient size (this includes techniques or standardized protocols for targeted exams where dose is matched to indication/reason for exam; i.e. extremities or head) *Use of iterative reconstruction technique. 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 Cardiomediastinal silhouette size is normal. Patient's large body habitus. Vascular clips right upper quadrant abdomen and likely cholecystectomy. S-shaped curvature of the thoracic spine. LUNGS: Sutures extending from the right pulmonary hilum to the peripheral anterior right upper and mid hemithorax. There is a 38 x 26 x 31 mm spiculated soft tissue attenuation extending from the peribronchial septal to the interlobular/intralobular septa of the peripheral right lung. Subtle patchy pulmonary groundglass, right lung. No bronchiectasis. No honeycombing. MEDIASTINUM: Prominent lymph nodes, the largest measures 12 mm in the right pretracheal/mainstem bronchus. No aneurysm or dissection, thoracic aorta. No pericardial effusion. The vessels are patent. PLEURA: No pleural effusion. No pneumothorax. AXILLA: Nonspecific prominent lymph nodes. UPPER ABDOMEN: Postsurgical changes within the gastroesophageal junction and stomach. Status post cholecystectomy. Decreased enhancement pattern of the liver. Small hiatal hernia. OSSEOUS STRUCTURES: Mild to moderate multilevel thoracic spondylosis and lower cervical spondylosis without acute fracture or gross listhesis. No lytic or blastic lesions. The ribs are intact. Scapula is intact bilaterally. Heterogeneous nodular thyroid gland with subcentimeter nodules, right thyroid lobe. CT/CT chest w IV con IMPRESSION: Post surgical/treatment changes with stable to slightly smaller soft tissue attenuation along the surgical site. Stable right pretracheal lymph node. Fleischner guidelines were followed. Electronically signed by: Clif Hanson MD 06/10/2024 12:37 PM EDT
[2024-06-10] MEDS: iohexoL 350 MG/ML 100 ML INFUS..BTL IV (10:45)
--- OUTSIDE RECORDS SUMMARY | 2024-06-10 11:15 | XMS_ITS | Clinical Summary ---
Author Organization CC video [facility] it Address [address] [place] [address] Care Team Providers Care Maintenance Services Dispatcher Name Role Phone El Awan MD Primary Care Provider [phone] Surgical History Surgery Date Site/Laterality Comments SECTION PROCEDURE: HISTORICAL TUBAL LIGATION PROCEDURE: HISTORICAL TUBAL LIGATION HYSTERECTOMY PROCEDURE: HISTORICAL HYSTERECTOMY; COMMENT: for fibroids LAPAROSCOPIC GASTRIC BANDING 2005 PROCEDURE: LAP ADJUSTABLE GASTRIC BAND; COMMENT: insertion of adjustable band BELT ABDOMINOPLASTY 2009 PROCEDURE: HISTORICAL TUMMY TUCK UPPER GASTROINTESTINAL ENDOSCOPY 06/25/2018 PROCEDURE: UPPER GI ENDOSCOPY/EXAM; COMMENT: esophageal spasm, lap band, gastritis OTHER SURGICAL HISTORY 08/15/2018 PROCEDURE: LA LAPS GASTRIC RESTRICTIVE PX REMOVE DEVICE & PORT; COMMENT: removal of adjustable band BREAST BIOPSY 06/09/2010 Left PROCEDURE: BX BREAST; PERC NEEDLE CORE W/IMAG GUID; COMMENT: apocrine metaplasia OTHER SURGICAL HISTORY Right PROCEDURE: LA BRONCHOSCOPY W/TRANSBRONCHIAL LUNG BX EACH LOBE; COMMENT: RUL, RML - benign results BARIATRIC SURGERY 11/24/2018 PROCEDURE: LA LAPS GSTRC RSTRICTIV PX LONGITUDINAL GASTRECTOMY; COMMENT: Sleeve Gastrectomy UPPER GASTROINTESTINAL ENDOSCOPY 08/05/2019 PROCEDURE: LA UPPER GI ENDOSCOPY PERFORMED; COMMENT: biopsy pending Medical History Medical History Date Comments GERD (gastroesophageal reflu x disease) 12/28/2010 DX:GERD (gastroesophageal re flux disease) Mixed incontinence urge and stress DX:Mixed incontinence urge and stress Family history of breast cancer DX:Family history of breast cancer; COMMENT: Pt BRCA negative 06/2013, T-C = 16.5% mod risk Fibromyalgia 10/22/2017 DX:Fibromyalgia Seropositive rheumatoid arth ritis of multiple sites (CMS/HCC) 07/31/2016 DX:Seropositive rheumatoid arthritis of multiple sites (HCC); COMMENT: RF and CCP positive.Onset early 2014. Sulfasalazine started 02/15 - stopped due diarrhea Methotrexate taken briefly 2015- May 2015? Methotrexate restarted 07/18- changed to SC Dec 2016 due to nausea Paresthesia and pain of both upper extremities 03/05/2018 DX:Paresthesia and pain of b oth upper extremities; COMMENT: Normal electromyography 02/27/2018 Ground glass opacity present on imaging of lung 05/23/2018 DX:Ground glass opacity pres ent on imaging of lung; COMMENT: Follows with pulmonary History of bariatric surgery 12/16/2018 DX: History of bariatric surgery; COMMENT: 11/2018 Gastric Sleeve, 08/2018 Lap band removed, 2005 Lap band Class 3 severe obesity due t o excess calories with serious comorbidity and body mass index (BMI) of 40.0 to 44.9 in adult 10/21/2018 DX:Class 3 severe obesi ty due to excess calories with serious comorbidity and body mass index (BMI) of 40.0 to 44.9 in adult (HCC) Snoring 06/17/2018 DX:Snoring Sarcoidosis 05/04/2019 DX:Sarcoidosis Family History Medical History Relation Name Comments Other: tumor Daughter 1 benign Other: hyperthyroidism Daughter 2 Heart attack Father at 57 Other: head injury Maternal Grandfather d ied at 75 after a fall with head injury Lung cancer Maternal Grandmother at 80 Breast cancer Mother 30s bilateral,Diab etes, Hypertension Breast cancer Mother's side 1 3 mat Aunt, Lymph anderson Prostate cancer Mother's side 2 gr uncle dx > 50 Prostate cancer Mother's side 3 Uncle ?50 Breast cancer Mother's side 4 gr aunt-patrick ateral cancer Colon cancer Mother's side 5 first cousin -also liver ca Breast cancer Mother's side 6 maternal arrieta lf sister Breast cancer Other niece dx at ag e six! Other: meningitis Son Relation Name Status Comments Daughter 1 Daughter 2 Father Maternal Grandfather Maternal Grandmother Mother 30s Alive Mother's side 1 3 mat Mother's side 2 Mother's side 3 Mother's side 4 Mother's side 5 Mother's side 6 Other Son Social History Tobacco Use Types Packs/Day Years Used Date Smoking Tobacco: Former Cigarettes Q uit: 10/14/2012 Smokeless Tobacco: Former Alcohol Use Standard Drinks/Week Comments No 0 (1 standard drink = 0.6 oz pur e alcohol) Comments Unknown Sex and Gender Information Value Date Recorded Sex Assigned at Not on file Legal Sex Female 4:48 PM EST Gender Identity Not on file Sexual Orientation Not on file Obstetrics History Plan of Treatment Health Maintenance Due Date Last Done Comments COVID-19 Vaccine (#1) 1977 Hepatitis B Vaccines (1 of 3 - 19+ 3-dose series) 05/25/1991 Breast Cancer Screening 11/20/2020 11/21/19 19, 11/19/2017, 10/11/2016 Colorectal Cancer Screening: Colonoscopy 01/31/2022 Depression Screening 01/31/2022 HIV Screening 01/31/2022 Hepatitis C Screening 01/31/2022 Social Influencers of Health Screening 01/31/2022 Pneumococcal Vaccine: 50+ Years (1 of 1 - PCV) 2022 Zoster Vaccines (1 of 2) 2022 Influenza Vaccine (Season Ended) 2024 11/05/2018, 11/08/2017, 12/03/2016, Additional history exists DTaP,Tdap,and Td Vaccines (3 - Td or Tdap) 10/10/2026 10/10/2016, 03/26/2006 MMR Vaccines Aged Out 07/16/2014, 06/16/2014 No lo nger eligible based on patient's age to complete this topic HIB Vaccines Aged Out No longer eligi ble based on patient's age to complete this topic HPV Vaccines Aged Out No longer eligi ble based on patient's age to complete this topic Hepatitis A Vaccines Aged Out No long er eligible based on patient's age to complete this topic IPV Vaccines Aged Out No longer eligi ble based on patient's age to complete this topic Meningococcal ACWY Vaccine Aged Out N o longer eligible based on patient's age to complete this topic Meningococcal B Vaccine Aged Out No l onger eligible based on patient's age to complete this topic Pneumococcal Vaccine: Pediatrics (0 to 5 Years) and At-Risk Patients (6 to 64 Years) Aged Out No longer eligible based on patient's age to complete this topic RSV Immunization Patients Under 20 months Aged Out No longer eligible based on patient's age to complete this topic Varicella Vaccines Aged Out No longer eligible based on patient's age to complete this topic Procedures Procedure Name Priority Date/Time Associated Diagnosis Comments SCR MAMMO BI INCL CAD Routine 11/20/2018 1:55 PM EDT Family history of malignant neoplasm of breast Encounter for screening mammogram for malignant neoplasm of breast from Last 3 Months or Most Recently Relevant to Health Maintenance Results * SCR MAMMO BI INCL CAD (11/20/2018 1:55 PM EDT) Anatomical Region Laterality Modality Radiographic Yen ging 11/19/2017 1:19 PM EDT Narrative 11/21/2018 8:10 AM EDT This is a summary report. The complete report is available in the patient's medical record. If you cannot access the medical record, please contact the sending organization for a detailed fax or copy. Full field digital screening mammography, reviewed with CAD and compared to previous. The breast tissue is heterogeneously dense, limiting sensitivity. A benign right breast nodule once again remains table. No suspicious mass, architectural distortion or suspicious calcifications are identified. IMPRESSION: : Dense breast tissue, limiting the sensitivity of mammography. No mammographic evidence of malignancy. BIRADS 2-Benign; 1. 5 year breast cancer risk assessment 1.9 % Lifetime breast cancer risk assessment 16.2 % Breast cancer risk category Moderate (15% - 20%) Procedure Note Russell Scott Bella - 02/20/2022 This is a summary report. The complete report is available in thepatient's medical record. If you cannot access the medical record, pleasecontact the sending organization for a detailed fax or copy. Full field digital screening mammography, reviewed with CAD and comparedto previous. The breast tissue is heterogeneously dense, limitingsensitivity. A benign right breast nodule once again remains table. Nosuspicious mass, architectural distortion or suspicious calcifications areidentified. IMPRESSION: : Dense breast tissue, limiting the sensitivity of mammography. Nomammographic evidence of malignancy. BIRADS 2-Benign; 1. 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 Expl anation Health Care Decision (hx) 11/18/2018 AD ORELLANA DIRECTIVE Health Care Decision (hx) 11/18/2018 AD ORELLANA DIRECTIVE Health Care Decision (hx) 11/18/2018 AD ORELLANA DIRECTIVE Health Care Decision (hx) 11/18/2018 AD ORELLANA DIRECTIVE Health Care Decision (hx) 11/18/2018 AD ORELLANA DIRECTIVE Health Care Decision (hx) 11/18/2018 AD ORELLANA DIRECTIVE Health Care Decision (hx) 11/18/2018 AD ORELLANA DIRECTIVE Health Care Decision (hx) 11/18/2018 AD ORELLANA DIRECTIVE Health Care Decision (hx) 11/18/2018 AD ORELLANA DIRECTIVE Health Care Decision (hx) 11/18/2018 AD ORELLANA DIRECTIVE Health Care Decision (hx) 11/18/2018 AD ORELLANA DIRECTIVE Health Care Decision (hx) 11/18/2018 AD ORELLANA DIRECTIVE Health Care Decision (hx) 11/18/2018 AD ORELLANA DIRECTIVE Care Teams Maintenance Services Dispatcher Relationship Specialty Start Date End Date El Awan MD [address] [place] [address] [address] [place] [address] PCP - General Internal Medicine 07/10/18
--- OUTSIDE RECORDS SUMMARY | 2024-06-10 11:15 | XMS_ITS | Clinical Summary ---
Author Organization [address] [address] Care Team Providers Care Research Executive Name Role Phone Unavailable Primary Care Provider Unavailabl e Social History Tobacco Use Types Packs/Day Years Used Date Smoking Tobacco: Never Assessed Comments Unknown Sex and Gender Information Value Date Recorded Sex Assigned at Not on file Legal Sex Female 11:57 AM EST Gender Identity Not on file Sexual Orientation Not on file Plan of Treatment Health Maintenance Due Date Last Done Comments HIV screening 1985 Hepatitis C screening 1990 Tetanus adult (Td q 10,TDAP once) 1992 Cervical cancer screening 1993 Breast cancer screening 2012 Lipid disorder screening 2012 Colon cancer screening, Colonoscopy 2017 Diabetes screening 2017 Pneumococcal Vaccine (50+ ye ars) (1 of 1 - PCV) 2022 Shingles vaccine (Shingrix) (1 of 2 - Shingrix (RZV) 2 Dose Standard Series) 2022 Covid-19 vaccine series (1 - 2023- season) 2023 Influenza vaccine 11/02/2024 RSV Immunization (1 - 1-dose 75+ series) 05/25/2047 Meningococcal Vaccine Aged Out No lyssa merna eligible based on patient's age to complete this topic
== END 2024-06-10 10:05 | disposition home or self-care (01) ==
LOC: HO.CT 10:04
PROVIDERS: PCP Internal Medicine; Visit Provider Hospitalist
DX: R91.8 Other nonspecific abnormal finding of lung field (principal)
CPT/HCPCS: 71260; Q9967

== ENCOUNTER → 2024-06-10 10:06 | Outpatient (BNV) | payer BC, SELFPAY | PROVIDERS: PCP Internal Medicine; Visit Provider Radiology Diagnostic Radiology | DX: R91.8 Other nonspecific abnormal finding of lung field (principal) | CPT/HCPCS: 71260 ==

== ENCOUNTER 2024-06-18 12:38 | Outpatient (AMB) | payer BC, SELFPAY ==
[2024-06-18 12:39] VITALS: BP 108/62; PULSE 69; O2SAT 98; BMI 37.9
--- NOTE | 2024-06-18 12:39 | A.OFFVIS_ITS ---
Vital Signs 06/18/24 12:39 Height 5 ft 2 in Weight 207 lb 0.225 oz BMI 37.9 BP 108/62 Blood Pressure Location Lt brachial Position Sitting Pulse 69 Pulse Source Pulse Oximeter Pulse Oximetry (%) 98 Oxygen Delivery Method Room Air Intake Visit Reasons: RA/ MD hughes sooner appt Intake Note: Patient presents for RA and lab review, she was last seen in the office by Dr. Del Toro on 04/25/23. labs done on 05/26/24. Allergies levofloxacin Allergy (Severe, Verified 06/18/24 12:41) hives Medication List - Last Reconciled 06/18/24 by Ping Mcallister MD albuterol sulfate 90 mcg/actuation 2 puffs PO Q6H PRN albuterol sulfate 2.5 mg (3 mL) inhalation Q6H PRN biotin 5 mg PO DAILY budesonide 0.5 mg (2 mL) inhalation BID budesonide-formoterol 160-4.5 mcg/actuation 2 puffs PO BID cholecalciferol (vitamin D3) 125 mcg PO DAILY duloxetine 30 mg PO DAILY 30 days eszopiclone (Lunesta) 1 mg PO BEDTIME 90 days famotidine 40 mg PO BEDTIME folic acid 1 mg PO DAILY 90 days gabapentin 600 mg (2 x 300 mg) PO BEDTIME PRN 30 days lidocaine 5% (Lidoderm) 1 patch topical DAILY 30 days idfaki-heehqnmn-jrsncvl 36,000-114,000- 180,000 unit (Creon) 1 cap PO QID lubiprostone 16 mcg (2 x 8 mcg) PO BID meclizine 25 mg PO TID-QID mecobalamin (vitamin B12) 1,000 mcg sublingual DAILY nebulizers As directed omeprazole 40 mg PO DAILY Orencia ClickJect (abatacept) 125 mg subcut QWEEK NS oxycodone 5 mg PO Q6H PRN 10 days prednisone 20 mg (2 x 10 mg) PO DAILY simethicone 180 mg PO QID 30 days HPI Comments Details: Patient is a 54-year-old female with asthma, GERD, IBS with constipation and diarrhea, seropositive rheumatoid arthritis and sarcoidosis complicated by ILD here today for follow up Interval History: Patient last seen 04/25/[address] Del Toro. At that time she was on Orencia and 10 mg of prednisone. No changes were made to her medication that. Patient did not follow up after that stating that she was not comfortable with the previous provider She had attempted to get refills on her medication however the current provider said that she needs to come in for a visit since it has been over a year since her last rheumatology visit. Today patient reports that the Orencia overall manages her symptoms which she still gets breakthrough joint pain/Fares at least once per month and these last for on average 2-3 days at a time. These flares would be manifested with swelling of her hands and tenderness to the joints and increase it to stiffness. Follows with pulmonology for her lung issues, her last visit was 04/[address] Briggs. No significant changes made to her medications that time. Rheumatologic History: Patient initially diagnosed with rheumatoid arthritis 2014 +++RF+++CCP Onset early 2014. SSZ started 02/15 - stopped due diarrhea MTX taken briefly 2015- May 2015? MTX restarted 07/18- changed to SC Dec 2016 due to nausea Humira added 02/18 to methotrexate. Both stopped 04/22 due to infection. Humira was suspected to have caused lung issues (?drug induced sarcoid) MTX and Humira remained held 03/23 04/23: Cellcept started by pulmonary for ILD/sarcoidosis - GI side effects, confusion so it was stopped 07/21 methotrexate and Humira restarted stopped sometime in 2020 Imuran briefly, not sure what happened with that 2020 Orencia attempted got denied. Approved 07/2022, started 01/2023 effective ILD vs Sarcoidosis In 2018 she had in navigation bronchoscopy with biopsy which showed some findings suspicious for sarcoidcosis. She had another wedge resection biopsy which showed organizing pneumonia, non necrotizing granulomas. She had a cardiac PET scan ordered by Dr. Briggs after a cardiac event in 2020 which did not show features of cardiac sarcoidosis. She was evaluated by Dr. Ricks in [place] and the overall assessment was she does not have classic sarcoidosis. Despite this she is currently being followed by Pulmonary for sarcoid/ILD Current Rheumatology Medication(s): Orencia 125 mg sc weekly Prednisone varying doses daily [facility] Medical History (Updated 06/23/24 @ 08:02 by Ping Mcallister MD) Lung mass COVID-19 Cervical mass Intercostal neuralgia Mixed connective tissue disease Transaminitis Sarcoidosis Class 2 severe obesity with body mass index (BMI) of 35 to 39.9 with serious comorbidity Closed fracture of phalanx of right fourth toe Toe fracture, right Right foot pain Toe pain, right Hot flashes Low libido Pre-op examination Adult general medical exam Diarrhea Screening for breast cancer Cervical cancer screening Screening for colon cancer 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, 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 Pleuritic chest pain Sinusitis Headache Right ankle sprain Ankle pain Chest pain RUQ pain Thyroid nodule Lymphadenopathy Bradycardia Pneumonia BRCA gene positive Chronic idiopathic constipation Post herpetic neuralgia 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 Lump of left thigh ÁNGELA (obstructive sleep apnea) Insomnia ILD (interstitial lung disease) Sarcoidosis Dizziness SOB (shortness of breath) Surgical History (Updated 01/07/24 @ 04:49 by Royce Wild MD) H/O colonoscopy (~11/08/22) History of removal of ovarian cyst History of lung surgery History of breast biopsy Hx of abdominoplasty History of laparoscopic adjustable gastric banding History of tubal ligation History of section History of hysterectomy History of cholecystectomy Family History Father Cardiovascular disease Mother Cardiovascular disease Hypertension Thyroid condition History of breast cancer Daughter Thyroid condition Rheumatoid arthritis Sister Thyroid condition Brother Rheumatoid arthritis Maternal Aunt History of breast cancer Maternal Aunt History of breast cancer Maternal Aunt History of breast cancer Maternal Aunt History of breast cancer Social History Housing: House Alcohol intake: current Alcohol intake frequency: holidays/special occasions only Patient Tobacco Use Status: Former Tobacco user Tobacco use type: Cigarette Years Smoked: 15 years quit about 20 years ago e-Cigarette/Vaping Use: Never Used Second Hand Smoke Exposure: Yes service: No Current occupational status: unemployed Current occupation: rt handed Cognitive needs: No Hearing needs: No Vision needs: Yes (Glasses) Review of Systems Const Details: Review of Systems Constitutional: Denies fever, chills, weight loss ENT: Denies vision changes, eye pain or eye redness, dental caries, dry mouth GI: Denies nausea, vomiting, diarrhea, abdominal pain, change in BM Pulm: Denies SOB, DUQUE, hemoptysis, wheezing Cards: Denies chest pain, palpitations Skin: Denies Raynaud's, rash, nail changes, photosensitivity, MAKER UP FOLDING: Denies headaches, weakness, paresthesias, recurrent falls MSK: as per HPI All other systems reviewed and are unremarkable except noted above Physical Exam Vital Signs: Last Vital Signs Pulse 69 06/18/24 12:39 BP 108/62 06/18/24 12:39 Pulse Ox 98 06/18/24 12:39 Oxygen Delivery Method Room Air 06/18/24 12:39 BMI result Body Mass Index 37.9 Vital signs reviewed Physical Examination CONSTITUITIONAL Patient alert and cooperative. Well appearing and in no apparent painful distress HEENT Conjunctiva and sclera clear. ?Pupils equal round and reactive to light. ?No lymphadenopathy. ? CHEST/RESPIRATORY SYSTEM Normal respiratory effort and able to speak in complete sentences. ?Clear to auscultation bilaterally. ?No crackles, rales, rhonchi, wheezes heard. CARDIAC SYSTEM Regular rate and rhythm. ?S1 and S2 heard no murmurs. 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 No deformities noted. ?No synovitis noted to the MCPs, PIPs or DIPs. ?No tenderness to palpation of these joints. Wrists: ?Full range of motion at the wrists without pain. ?No tenderness to palpation or synovitis noted to the wrists. Elbows: Full range of motion without pain. No tenderness, weakness, swelling, increased warmth or erythema. Shoulders: Full range of motion without pain. No tenderness, weakness, swelling, increased warmth or erythema. Hips: Full range of motion without pain. Hip bursa: No tenderness to palpation Knees: ?Full range of motion. ?No tenderness, swelling, increased warmth or erythema.?No effusion or crepitations Ankles: Full range of motion. ?No tenderness, swelling, increased warmth or erythema.? Feet: ?Negative squeeze test. ?No tenderness to palpation or swelling of the MTPs. Tender points:?No tenderness to palpation of the bilateral trapezius, supraspinatus, greater trochanters, anterior costochondral junctions, bilateral gluteal areas, bilateral suboccipital muscle insertions SKIN Skin intact without rashes. Results Reviewed Results Reviewed: Laboratory Tests 06/19/24 15:25 WBC 6.9 RBC 4.34 Hgb 13.4 Hct 37.9 Plt Count 231 ESR 17 Sodium 142 Potassium 3.7 Chloride 110 H Carbon Dioxide 24 BUN 12 Creatinine 0.70 AST 21 ALT 11 Alkaline Phosphatase 108 C-Reactive Protein < 0.10 Total Protein 7.1 Albumin 3.9 Angiotensin Convert Enz Pending Immunology labs and infectious serologies 06/19/24 06/19/24 15:25 15:29 IgG Total 1353 IgA Total 142 IgM 131 Complement C3 133 Complement C4 18 Hepatitis A IgM Ab Pending Hep Bs Antigen Negative Hep Bs Antibody NONREACTIVE Hep B Core Total Ab Nonreactive Hepatitis C Ab (EIA) Nonreactive TB Test (T-Spot) Com Negative CT Chest 06/2024 FINDINGS: COMPUTED TOMOGRAPHY TECHNICIAN: Low lung volume involving mostly the right lung. Cardiomediastinal silhouette size is normal. Patient's large body habitus. Vascular clips right upper quadrant abdomen and likely cholecystectomy. S-shaped curvature of the thoracic spine. LUNGS: Sutures extending from the right pulmonary hilum to the peripheral anterior right upper and mid hemithorax. There is a 38 x 26 x 31 mm spiculated soft tissue attenuation extending from the peribronchial septal to the interlobular/intralobular septa of the peripheral right lung. Subtle patchy pulmonary groundglass, right lung. No bronchiectasis. No honeycombing. MEDIASTINUM: Prominent lymph nodes, the largest measures 12 mm in the right pretracheal/mainstem bronchus. No aneurysm or dissection, thoracic aorta. No pericardial effusion. The vessels are patent. PLEURA: No pleural effusion. No pneumothorax. AXILLA: Nonspecific prominent lymph nodes. UPPER ABDOMEN: Postsurgical changes within the gastroesophageal junction and stomach. Status post cholecystectomy. Decreased enhancement pattern of the liver. Small hiatal hernia. OSSEOUS STRUCTURES: Mild to moderate multilevel thoracic spondylosis and lower cervical spondylosis without acute fracture or gross listhesis. No lytic or blastic lesions. The ribs are intact. Scapula is intact bilaterally. Heterogeneous nodular thyroid gland with subcentimeter nodules, right thyroid lobe. IMPRESSION: Post surgical/treatment changes with stable to slightly smaller soft tissue attenuation along the surgical site. Stable right pretracheal lymph node. Assessment & Plan Assessment & Plan (1) Seropositive rheumatoid arthritis: Comment: +++RF+++CCP Onset early 2014. SSZ started 02/15 - stopped due diarrhea MTX taken briefly 2015- May 2015? MTX restarted 07/18- changed to SC Dec 2016 due to nausea Humira added 02/18 to methotrexate. Both stopped 2/19 due to infection. Humira was suspected to have caused lung issues (?drug induced sarcoid) MTX and Humira remained held 03/23 04/23: Cellcept started by pulmonary - GI side effects, confusion so it was stopped 07/21 methotrexate and Humira restarted stopped sometime in 2020 Imuran briefly, not sure what happened with that 2020 Marcie delgadillo got denied. Approved 07/2022, started 01/2023 effective Code(s): M05.9 - Rheumatoid arthritis with rheumatoid factor, unspecified Category: Medical Plan: #Seropositive RA Patient is a 54-year-old female with seropositive rheumatoid arthritis here today for follow up. With respect to alter arthritis her exam at this time is consistent with remission however the fact that she is having persistent intermittent flare-ups every month lasting 2-3 days requiring prednisone does not indicate good control of her rheumatoid arthritis. Given the concern for sarcoidosis I think the next step would be to start infliximab infusions Plan - Stop abatacept - Start infliximab infusions 5mg/kg. Induction dose at 0, 2 and 6 weeks followed by maintenance every 4 weeks - May need to add leflunomide or low dose methotrexate to prevent antibody formation with infliximab. - RTC 3 months - Labs before visit: CBC, CMP, ESR, CRP, MARLY level (2) Sarcoidosis: Comment: Sarcoid like reaction secondary auto-immune disease versus a medication reaction while taking the TNF inhibitor 2018 lung biopsy with non caseating granulomas Code(s): D86.9 - Sarcoidosis, unspecified Category: Medical Plan: #Sarcoidosis Patient with lung biopsy showing noncaseating granulomas without any other extra pulmonary evidence of sarcoid. No cardiac sarcoid or any skin changes at this time. Given the concern for potential sarcoidosis, I think the next treatment in the management of her rheumatoid arthritis should be a treatment that encompasses both sarcoid and rheumatoid arthritis which is infliximab (3) Encounter for monitoring of infliximab therapy: Code(s): Z51.81 - Encounter for therapeutic drug level monitoring; Z79.620 - retirement (current) use of immunosuppressive biologic Plan: #Long-term Use of TNF Inhibitors: Infliximab Discussed with the patient the benefits and risks of TNF inhibitors for the management of the rheumatic condition Benefits include reduce pain, maintenance of remission and reduction of flares as well as progression of the disease Risks include injection sites/infusion reactions, serious infections (such as bacterial infections, opportunistic infections), malignancy, delaminating syndromes, autoimmune phenomena, CHF exacerbations, palmar plantar psoriasis and cytopenias Recommended holding medication during and for up to 1 week after resolution of a febrile illness or open skin wound Plan I spent 42 minutes reviewing the record and labs, taking a history, examining the patient, discussing the treatment plan, ordering diagnostic work up and documenting in the medical record Orders: Orders Angiotensin Converting Enzyme 06/19/24 D86.9 - Sarcoidosis, unspecified C Reactive Protein 06/19/24 D86.9 - Sarcoidosis, unspecified Hepatitis A,B,C Profile 06/19/24 D8.9 - Sarcoidosis, unspecified T Spot TB 06/19/24 D8. - Sarcoidosis, unspecified Immunoglobulins,IgG IgA IgM 06/19/24 D8. - Sarcoidosis, unspecified Complete Blood Count Auto Diff 06/19/24 D8. - Sarcoidosis, unspecified Comprehensive Met. Panel 06/19/24 D8. - Sarcoidosis, unspecified Complement C4 06/19/24 D8. - Sarcoidosis, unspecified Complement C3 06/19/24 D8.9 - Sarcoidosis, unspecified Erythrocyte Sedimentation Rate 06/19/24 D86.9 - Sarcoidosis, unspecified Referrals Infusion Center Notification D86.9 - Sarcoidosis, unspecified, M05.9 - Rheumatoid arthritis with rheumatoid factor, unspecified Medications: Discontinued Orencia ClickJect (abatacept) Discontinued Reason: Doctor's Order 125 mg subcut QWEEK 4 mL 4RF NS M05.9 - Rheumatoid arthritis with rheumatoid factor, unspecified Coding Level of Care Code Est Pt Level 5 (31173) Complex EM visit Add On G2211 Diagnoses Seropositive rheumatoid arthritis M05.9 Sarcoidosis D86.9 Encounter for monitoring of infliximab therapy Z51.81; Z79.620
--- OUTSIDE RECORDS SUMMARY | 2024-06-18 15:25 | XMS_ITS | Clinical Summary ---
Author Organization [facility] it Address [address] [place] [address] Care Team Providers Care Aviation Project Manager Name Role Phone El Awan MD Primary Care Provider [phone] Surgical History Surgery Date Site/Laterality Comments SECTION PROCEDURE: HISTORICAL TUBAL LIGATION PROCEDURE: HISTORICAL TUBAL LIGATION HYSTERECTOMY PROCEDURE: HISTORICAL HYSTERECTOMY; COMMENT: for fibroids LAPAROSCOPIC GASTRIC BANDING 2005 PROCEDURE: LAP ADJUSTABLE GASTRIC BAND; COMMENT: insertion of adjustable band BELT ABDOMINOPLASTY 2009 PROCEDURE: HISTORICAL TUMMY TUCK UPPER GASTROINTESTINAL ENDOSCOPY 06/25/2018 PROCEDURE: UPPER GI ENDOSCOPY/EXAM; COMMENT: esophageal spasm, lap band, gastritis OTHER SURGICAL HISTORY 08/15/2018 PROCEDURE: [place] LAPS GASTRIC RESTRICTIVE PX REMOVE DEVICE & PORT; COMMENT: removal of adjustable band BREAST BIOPSY 06/09/2010 Left PROCEDURE: BX BREAST; PERC NEEDLE CORE W/IMAG GUID; COMMENT: apocrine metaplasia OTHER SURGICAL HISTORY Right PROCEDURE: MI BRONCHOSCOPY W/TRANSBRONCHIAL LUNG BX EACH LOBE; COMMENT: RUL, RML - benign results BARIATRIC SURGERY 11/24/2018 PROCEDURE: MI LAPS GSTRC RSTRICTIV PX LONGITUDINAL GASTRECTOMY; COMMENT: Sleeve Gastrectomy UPPER GASTROINTESTINAL ENDOSCOPY 08/05/2019 PROCEDURE: MI UPPER GI ENDOSCOPY PERFORMED; COMMENT: biopsy pending [...] Seropositive rheumatoid arth ritis of multiple sites (CMS/HCC V24, CMS/HCC V28) 07/31/2016 DX:Seropositive rheumatoid a rthritis of multiple sites (HCC); COMMENT: RF and [...] Health Maintenance Due Date Last Done Comments Hepatitis B Vaccines (1 of 3 - 19+ 3-dose series) 05/25/1991 Breast Cancer Screening 11/20/2020 11/21/19 19, 11/19/2017, 10/11/2016 Colorectal Cancer Screening: Colonoscopy 01/31/2022 HIV Screening 01/31/2022 Pneumococcal Vaccine: 50+ Years (1 of 1 - PCV) 2022 Zoster Vaccines (1 of 2) 2022 COVID-19 Vaccine (1 - 2023- season) 2023 Influenza Vaccine (Season Ended) 2024 11/05/2018, 11/08/2017, [...] category Moderate (15% - 20%) Procedure Note Scott Russell - 02/20/2022 This is a summary report. 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
--- OUTSIDE RECORDS SUMMARY | 2024-06-18 15:25 | XMS_ITS | Clinical Summary ---
Author Organization [address] [address] Care Team Providers Care Flat Optical Element Maker Name Role Phone Unavailable Primary Care Provider [...]
== END 2024-06-18 13:33 | disposition home or self-care (01) ==
LOC: HO.RHE 12:38
PROVIDERS: PCP Internal Medicine; Visit Provider Student in an Organized Health Care Education/Training Program
DX: M05.9 Rheumatoid arthritis with rheumatoid factor, unspecified (principal); D86.9 Sarcoidosis, unspecified; Z51.81 Encounter for therapeutic drug level monitoring; Z79.620 Long term (current) use of immunosuppressive biologic
CPT/HCPCS: 99215

== ENCOUNTER → 2024-06-18 12:38 | Outpatient (BNVA) | payer BC, SELFPAY | PROVIDERS: PCP Internal Medicine; Visit Provider Student in an Organized Health Care Education/Training Program ==

== ENCOUNTER 2024-06-19 15:04 | Outpatient (REF) | payer BC, SELFPAY ==
--- OUTSIDE RECORDS SUMMARY | 2024-06-19 15:10 | XMS_ITS | Clinical Summary ---
Author Organization [employer] [facility] it Address [address] [place] [address] Care Team Providers Care Icu Clerk Name Role Phone El Awan MD Primary Care Provider [phone] Surgical History Surgery Date Site/Laterality Comments SECTION PROCEDURE: HISTORICAL TUBAL LIGATION PROCEDURE: HISTORICAL TUBAL LIGATION HYSTERECTOMY PROCEDURE: HISTORICAL HYSTERECTOMY; COMMENT: for fibroids LAPAROSCOPIC GASTRIC BANDING 2005 PROCEDURE: LAP ADJUSTABLE GASTRIC BAND; COMMENT: insertion of adjustable band BELT ABDOMINOPLASTY 2009 PROCEDURE: HISTORICAL TUMMY TUCK UPPER GASTROINTESTINAL ENDOSCOPY 06/25/2018 PROCEDURE: UPPER GI ENDOSCOPY/EXAM; COMMENT: esophageal spasm, lap band, gastritis OTHER SURGICAL HISTORY 08/15/2018 PROCEDURE: [place] LAPS GASTRIC RESTRICTIVE PX REMOVE DEVICE & PORT; COMMENT: removal of adjustable band BREAST BIOPSY 06/09/2010 Left PROCEDURE: BX BREAST; PERC NEEDLE CORE W/IMAG GUID; COMMENT: apocrine metaplasia OTHER SURGICAL HISTORY Right PROCEDURE: NV BRONCHOSCOPY W/TRANSBRONCHIAL LUNG BX EACH LOBE; COMMENT: RUL, RML - benign results BARIATRIC SURGERY 11/24/2018 PROCEDURE: NV LAPS GSTRC RSTRICTIV PX LONGITUDINAL GASTRECTOMY; COMMENT: Sleeve Gastrectomy UPPER GASTROINTESTINAL ENDOSCOPY 08/05/2019 PROCEDURE: NV UPPER GI ENDOSCOPY PERFORMED; COMMENT: biopsy pending [...] Documents on File Type Date Recorded Patient Rn Birthing Expl anation Health Care Decision (hx) 11/18/2018 [...] (hx) 11/18/2018 AD ORELLANA DIRECTIVE Care Teams Icu Clerk Relationship Specialty Start Date End Date El Awan MD [address] [facility] [address] [place] [address] PCP - General Internal Medicine 07/10/18
[2024-06-19 15:29] LABS: MANUAL DIFF FLAG NO
[2024-06-19 15:35] LABS: Basophils Percent Auto 0.3 % (0-2); Eosinophils Absolute Auto 0.1 X10*3/uL (0.0-0.4); Eosinophils Percent Auto 1.3 % (0-4); Hematocrit 37.9 % (37.0-47.0); Hemoglobin 13.4 g/dl (12.0-16.0); Imm Gran Abs Auto 0.02 X10*3/uL (0.00-0.03); Imm Gran Pct Auto 0.3 % (0.0-0.4); Lymphocytes Absolute Auto 1.6 X10*3/uL (1.2-4.9); Lymphocytes Percent Auto 23.8 % (20-40); Mean Corpuscular HGB Conc 35.4 g/dl (31.0-35.0); Mean Corpuscular Hemoglobin 30.9 pg (27.0-33.0); Mean Corpuscular Volume 87.3 fL (80.0-98.0); Mean Platelet Volume 10.5 fL (9.4-12.3); Monocytes Absolute Auto 0.5 X10*3/uL (0.1-1.2); Monocytes Percent Auto 6.5 % (2-11); Neutrophils Absolute Auto 4.7 x10*3/uL (2.0-8.3); Neutrophils Percent Auto 67.8 % (45-73); Platelet Count 231 X10*3/uL (160-400); Red Blood Count 4.34 X10*6/uL (4.20-5.50); Red Cell Distribution Width 12.4 % (11.0-16.0); White Blood Count 6.9 X10*3/uL (4.8-10.8)
[2024-06-19 16:00] LABS: Alanine Aminotransferase 11 U/L (0-31); Albumin Level 3.9 g/dL (3.5-5.0); Anion Gap 12 (12-20); Aspartate Amino Transferase 21 U/L (5-31); Bilirubin Total 0.8 mg/dL (0.0-1.0); Blood Urea Nitrogen 12 mg/dL (9-16); C Reactive Protein < 0.10 mg/dL (< or = 0.50); Calcium 8.8 mg/dL (8.4-10.2); Carbon Dioxide 24 mmol/L (22-29); Chloride 110 mmol/L (96-108); Estimated Glomerular Filt Rate > 60; Glucose Random 119 mg/dL (60-115); Potassium 3.7 mmol/L (3.3-5.1); Sodium 142 mmol/L (135-145); Total Protein 7.1 g/dL (6.5-8.0)
[2024-06-19 16:31] LABS: Erythrocyte Sedimentation Rate 17 MM/HR (0-20)
[2024-06-19 19:09] LABS: Alkaline Phosphatase 108 U/L (39-117)
[2024-06-22 03:41] LABS: HBS Num1 0.97 mIU/mL (0-7.99); HBc Num1 0.22 S/CO (0.00-0.79); HBsAGNum1 0.28 S/CO (0.00-0.99); Hepatitis B Core Antibody Nonreactive (Nonreactive); Hepatitis B Surface Antigen Negative (Negative); ~HepC Num1 0.41 S/CO (0.00-0.79); ~Hepatitis B Surface Antibody NONREACTIVE (Nonreactive); ~Hepatitis C Antibody Nonreactive (Nonreactive)
[2024-06-22 09:19] LABS: Complement C3 133 mg/dL (83-193)
[2024-06-22 12:14] LABS: IgA 142 mg/dL (47-310); IgG 1353 mg/dL (600-1640); IgM 131 mg/dL (50-300)
[2024-06-22 16:04] LABS: TS Negative Control Passed; TS Panel A 0; TS Panel B 1; TS Positive Control Passed; TSpotTB Negative (Negative)
[2024-06-23 08:52] LABS: Hepatitis A Antibody IgM 0.16 Index (0-0.79); ~Hepatitis A Antibody IgM Nonreactive (Nonreactive)
[2024-06-23 20:35] LABS: Angiotensin Converting Enzyme 21 U/L (9-67)
== END 2024-06-19 15:05 | disposition home or self-care (01) ==
LOC: HO.LAB 15:04
PROVIDERS: PCP Internal Medicine; Visit Provider Student in an Organized Health Care Education/Training Program
DX: D86.9 Sarcoidosis, unspecified (principal)
CPT/HCPCS: 36415; 80053; 82164; 82784; 85025; 85652; 86140; 86160; 86481; 86704; 86706; 86709; 86803; 87340

== ENCOUNTER 2024-06-28 14:44 | Emergency (ER) | payer BC, SELFPAY ==
--- NOTE | ~2024-06-28 | CT_ITS ---
CLINICAL HISTORY: fall CT head without contrast Comparison: None Findings: No intra-axial mass, midline shift, hydrocephalus, or acute hemorrhage. No significant atrophy-like change or white matter disease. There is no sinus or mastoid fluid. The orbits are within normal limits. There is no acute fracture. IMPRESSION: 1. No acute intracranial findings. This document has been electronically signed by: Cami Rose MD on 06/28/2024 18:25:03
--- NOTE | ~2024-06-28 | CT_ITS ---
CLINICAL HISTORY: fall CT cervical spine without contrast Comparison: None Findings: Vertebral alignment is within normal limits. There is degenerative change. No acute fractures or dislocations. Visualized intracranial contents are unremarkable. No cervical fluid collections or masses. No consolidation or effusion at the lung apices. IMPRESSION: No acute findings. This document has been electronically signed by: Cami Rose MD on 06/28/2024 18:27:07
--- NOTE | ~2024-06-28 | CT_ITS ---
CLINICAL HISTORY: fall. rib fractures CT chest without contrast Comparison: 12/20/2023 Findings: The heart is normal size. Stable mildly enlarged paratracheal lymph node. Similar appearance of the masslike area of the right upper lobe with internal calcification 2.4 x 3.6 cm series 16, image 49. There are satellite nodules surrounding the mass. There is mild enlargement of a nodule of the right lower lobe 7.1 mm in size image 46, previously 5.9 mm. Right middle lobe resection. Gastric sleeve. No acute fractures. IMPRESSION: No evidence of acute rib fracture. Similar appearance of the masslike area of the right upper lobe with multiple satellite nodules. Interval mild increase in size of a nodule of the right lower lobe. This document has been electronically signed by: Cami Rose MD on 06/28/2024 18:20:35
--- NOTE | ~2024-06-28 | CT_ITS ---
CLINICAL HISTORY: Fall CT abdomen and pelvis without contrast Comparison: None Findings: Examination is limited by without contrast. Lung bases are clear. No pleural effusion. Liver, Pancreas, Spleen and both adrenals show normal size, shape and attenuation on present unenhanced scan. No CBD dilatation. Cholecystectomy. Both kidneys reveal normal in size, shape, position and attenuation. No kidney stone. No hydronephrosis. The IVC, aorta and portal vein are within normal position and caliber. No evidence of retroperitoneal lymphadenopathy or ascites. The visible parts of the bowel loops show no obvious mass lesions or wall thickening. Gastric sleeve. Appendix appears normal. Urinary bladder reveals normal lumen and conklin. The pelvic organs are unremarkable. Visualized osseous structures appear unremarkable. No lytic or sclerotic bony lesion. IMPRESSION: No acute findings This document has been electronically signed by: Cami Rose MD on 06/28/2024 18:22:00
[2024-06-28 14:59] VITALS: BP 130/68; PULSE 71; RESP 18; TEMP 36.8; O2SAT 99; BMI 37.5
--- NOTE | 2024-06-28 16:15 | ED.GENADULT ---
HPI - General Adult General Chief complaint: Fall Stated complaint: Fall about 2 hours ago, arm/wrist pain Time Seen by Provider: 06/28/24 17:55 Source: patient Limitations: no limitations History of Present Illness ED Provider: Melissa Figueroa PA-C HPI narrative: 54-year-old female with a history of morbid obesity, fibromyalgia, RA, osteoarthritis, chronic pain, IBS, interstitial lung disease, sarcoidosis, obstructive sleep apnea who presents after fall. Patient states she slipped and fell falling onto her left arm and chest. Patient primarily complains of severe left lateral rib pain, worse with movement and bending over. Patient states she did strike her head during the fall, however there was no loss of consciousness, she is not on a blood thinner. She denies headache, dizziness nausea vomiting. No neck pain at this point. Related Data Home Medications ?Medication ?Instructions ?Recorded ?Confirmed mecobalamin (vitamin B12) 1,000 1,000 mcg sublingual DAILY 09/19/20 06/18/24 mcg disintegrating tablet,sublingual biotin 5 mg capsule 5 mg PO DAILY 07/02/22 06/18/24 nebulizers 07/02/22 06/18/24 meclizine 25 mg tablet 25 mg PO TID-QID 08/23/22 06/18/24 Previous Rx's ?Medication ?Instructions ?Recorded albuterol sulfate 2.5 mg/3 mL 2.5 mg (3 mL) inhalation Q6H PRN 10/25/20 (0.083 %) solution for nebulization shortness of breath or wheezing #225 mL lidocaine 5 % topical patch 1 patch topical DAILY 30 days #30 09/13/22 (Lidoderm) ea duloxetine 30 mg capsule,delayed 30 mg PO DAILY pain 30 days #30 12/01/22 release caps cholecalciferol (vitamin D3) 125 125 mcg PO DAILY #30 caps 06/13/23 mcg (5,000 unit) capsule folic acid 1 mg tablet 1 mg PO DAILY 90 days #90 tabs 07/01/23 eszopiclone 1 mg tablet (Lunesta) 1 mg PO BEDTIME 90 days #90 tabs 07/08/23 albuterol sulfate 90 mcg/actuation 2 puff PO Q6H PRN shortness of 10/25/23 aerosol inhaler breath or wheezing #8.5 grams budesonide-formoterol HFA 160 2 puff PO BID #30.6 ea 11/01/23 mcg-4.5 mcg/actuation aerosol inhaler prednisone 10 mg tablet 20 mg (2 x 10 mg) PO DAILY #60 tabs 11/12/23 qdopyr-ozkhnfeh-ktrvwfk 1 cap PO QID #120 caps 11/21/23 36,000-114,000-180,000 unit capsule,delay rel (Creon) lubiprostone 8 mcg capsule 16 mcg (2 x 8 mcg) PO BID #360 caps 11/21/23 omeprazole 40 mg capsule,delayed 40 mg PO DAILY #90 caps 11/21/23 release simethicone 180 mg capsule 180 mg PO QID 30 days #120 caps 11/21/23 budesonide 0.5 mg/2 mL suspension 0.5 mg (2 mL) inhalation BID #360 12/30/23 for nebulization mL famotidine 40 mg tablet 40 mg PO BEDTIME #90 tabs 04/06/24 gabapentin 300 mg capsule 600 mg (2 x 300 mg) PO BEDTIME PRN 04/14/24 Pain 30 days #60 caps oxycodone 5 mg tablet 5 mg PO Q6H PRN pain 10 days #40 06/23/24 tabs methocarbamol 750 mg tablet 750 mg PO Q8H PRN pain, moderate 06/28/24 #12 tabs Allergies Allergy/AdvReac Type Severity Reaction Status Date / Time levofloxacin Allergy Severe hives Verified 06/28/24 15:03 Review of Systems Review of Systems: Yes all other systems are reviewed and are negative Constitutional: Constitutional: Denies fatigue, Denies fever(s) and Denies headache(s) ENT: Denies dizziness and Denies headache(s) Cardiovascular: Cardiovascular: Reports chest pain and Denies dyspnea Respiratory: Respiratory: Denies dyspnea Gastrointestinal: Gastrointestinal: Denies abdominal pain, Denies nausea and Denies vomiting Neurologic: Denies dizziness and Denies headache(s) Endocrine: Endocrine: Denies fatigue PMF Past Medical History Attestation statement: The following information was validated with the patient. 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 Pleuritic chest pain Sinusitis Headache Right ankle sprain Ankle pain Chest pain RUQ pain Thyroid nodule Lymphadenopathy Bradycardia Pneumonia BRCA gene positive Chronic idiopathic constipation Post herpetic neuralgia Multinodular thyroid [id number] syndrome Lump of left thigh ÁNGELA (obstructive sleep apnea) Insomnia ILD (interstitial lung disease) Sarcoidosis Dizziness SOB (shortness of breath) Surgical History (Updated 01/07/24 @ 04:49 by Royce Wild MD) H/O colonoscopy (~11/08/22) History of removal of ovarian cyst History of lung surgery History of breast biopsy Hx of abdominoplasty History of laparoscopic adjustable gastric banding History of tubal ligation History of section History of hysterectomy History of cholecystectomy Family History Family History Father Cardiovascular disease Mother Cardiovascular disease Hypertension Thyroid condition History of breast cancer Daughter Thyroid condition Rheumatoid arthritis Sister Thyroid condition Brother Rheumatoid arthritis Maternal Aunt History of breast cancer Maternal Aunt History of breast cancer Maternal Aunt History of breast cancer Maternal Aunt History of breast cancer Social History Social History Housing: House Alcohol intake: current Alcohol intake frequency: holidays/special occasions only Patient Tobacco Use Status: Former Tobacco user Tobacco use type: Cigarette Years Smoked: 15 years quit about 20 years ago e-Cigarette/Vaping Use: Never Used Second Hand Smoke Exposure: Yes Advance Directives: No Advance Directives Information Provided: Yes service: No Current occupational status: unemployed Current occupation: rt handed Cognitive needs: No Hearing needs: No Vision needs: Yes (Glasses) Physical Exam ED Vital Signs: Vital Signs - 24 hr 06/28/24 14:59 06/28/24 17:59 06/28/24 17:59 Temperature 98.3 F 97.3 F 97.8 F Pulse Rate 71 60 61 Respiratory Rate 18 16 16 Blood Pressure 130/68 115/66 115/66 Pulse Oximetry 99 100 100 Oxygen Delivery Method Room Air Room Air 06/28/24 18:36 Temperature 97.7 F Pulse Rate 64 Respiratory Rate 18 Blood Pressure 118/68 Pulse Oximetry 99 Oxygen Delivery Method Room Air BMI result Body Mass Index 37.5 Const Other: Alert, no sign of head trauma on exam Orientation/consciousness: patient oriented x3 Neck Neck: Yes full ROM Chest Other: No deformity noted over left lateral chest wall Resp Effort & Inspection: normal respiratory effort Cardio Other: Normal peripheral perfusion GI Other: Abdomen is soft, nontender nondistended no guarding, obese abdomen Skin Other: Warm dry no rash Neuro General: patient oriented x3, gait normal, no focal motor deficits and CN's II-XI intact bilaterally Extrem Other: Full range of motion left upper extremity flexion and extension of the elbow, lateral raise from the shoulder Psych Other: Cooperative Course Course Course Narrative: RME: 54-year-old female presents to ED for left rib pain after falling off a chair. Patient fell off a chair and fell directly onto her left chest and has had pain ever since. This occurred 2 hours ago patient states hitting head but no loss of consciousness. Patient is sent for imaging. Patient denies any shortness of breath. Medical Decision Making Medical Decision Making MDM Narrative: 54-year-old female with a history of morbid obesity, fibromyalgia, RA, osteoarthritis, chronic pain, IBS, interstitial lung disease, sarcoidosis, obstructive sleep apnea who presents after fall. Patient states she slipped and fell falling onto her left arm and chest. Patient primarily complains of severe left lateral rib pain, worse with movement and bending over. Patient states she did strike her head during the fall, however there was no loss of consciousness, she is not on a blood thinner. She denies headache, dizziness nausea vomiting. No neck pain at this point. Problem: Obesity, chronic pain History: Per patient I have considered the following differential diagnoses: Intracranial hemorrhage, cervical spine injury, rib fracture, chest wall contusion, pneumothorax, fracture, dislocation Plan: Patient was essentially christopher scan from triage. Everything is negative. She does not require imaging of the arm, she has full range of motion no deformity, we will send with medication for a musculoskeletal strain/contusion. I have independently reviewed the following tests: CT brain: Findings: No intra-axial mass, midline shift, hydrocephalus, or acute hemorrhage. No significant atrophy-like change or white matter disease. There is no sinus or mastoid fluid. The orbits are within normal limits. There is no acute fracture. IMPRESSION: 1. No acute intracranial findings. CT cervical spine:Findings: Vertebral alignment is within normal limits. There is degenerative change. No acute fractures or dislocations. Visualized intracranial contents are unremarkable. No cervical fluid collections or masses. No consolidation or effusion at the lung apices. IMPRESSION: No acute findings. CT abdomen and pelvis:MPRESSION: No acute findings CT chest: IMPRESSION: No evidence of acute rib fracture. Similar appearance of the masslike area of the right upper lobe with multiple satellite nodules. Interval mild increase in size of a nodule of the right lower lobe. Discharge Plan Discharge Clinical Impression: Chest wall contusion, Muscle strain Patient Disposition: Home, Self-Care Instructions: Rib Contusion (ED), Bone Bruise (ED) Additional Instructions: CT scans of your brain, cervical spine, chest and abdomen were negative. You did not sustain an acute injury beyond a contusion and musculoskeletal strain. See home care instructions. Use your home ibuprofen 600 mg taken every 6 hours with food. Use the methocarbamol, this is a muscle relaxant, as needed for further pain. This will cause drowsiness do not drive or operate machinery while taking the medication. Follow up with your primary care provider as needed. Prescriptions: New methocarbamol 750 mg tablet 750 mg PO Q8H PRN (Reason: pain, moderate) Qty: 12 0RF No Action albuterol sulfate 2.5 mg /3 mL (0.083 %) solution for nebulization 2.5 mg inhalation Q6H PRN (Reason: shortness of breath or wheezing) Qty: 225 11RF duloxetine 30 mg capsule,delayed release(DR/EC) 30 mg PO DAILY 30 Days Qty: 30 3RF folic acid 1 mg tablet 1 mg PO DAILY 90 Days Qty: 90 11RF albuterol sulfate 90 mcg/actuation HFA aerosol inhaler 2 puff PO Q6H PRN (Reason: shortness of breath or wheezing) Qty: 8.5 9RF budesonide-formoterol 160-4.5 mcg/actuation HFA aerosol inhaler 2 puff PO BID Qty: 30.6 3RF prednisone 10 mg tablet 20 mg PO DAILY Qty: 60 5RF budesonide 0.5 mg/2 mL suspension for nebulization 0.5 mg inhalation BID Qty: 360 3RF famotidine 40 mg tablet 40 mg PO BEDTIME Qty: 90 2RF oxycodone 5 mg tablet 5 mg PO Q6H PRN (Reason: pain) 10 Days Qty: 40 0RF Rx Instructions: Partial Fill upon patient request. mecobalamin (vitamin B12) 1,000 mcg tablet,disintegrating 1,000 mcg sublingual DAILY cholecalciferol (vitamin D3) 125 mcg (5,000 unit) capsule 125 mcg PO DAILY Qty: 30 6RF biotin 5 mg capsule 5 mg PO DAILY (DME) nebulizers Mis See Rx Instructions .Route Rx Instructions: As directed meclizine 25 mg tablet 25 mg PO TID-QID Creon 36,000-114,000- 180,000 unit capsule,delayed release(DR/EC) 1 cap PO QID Qty: 120 3RF Rx Instructions: administer with meals and/or snacks lubiprostone 8 mcg capsule 16 mcg PO BID Qty: 360 1RF omeprazole 40 mg capsule,delayed release(DR/EC) 40 mg PO DAILY Qty: 90 2RF simethicone 180 mg capsule 180 mg PO QID 30 Days Qty: 120 3RF Rx Instructions: after meals eszopiclone [Lunesta] 1 mg tablet 1 mg PO BEDTIME 90 Days Qty: 90 0RF lidocaine [Lidoderm] 5 % adhesive patch,medicated 1 patch topical DAILY 30 Days Qty: 30 12RF Rx Instructions: leave on most painful area for up to 12 hrs gabapentin 300 mg capsule 600 mg PO BEDTIME PRN (Reason: Pain) 30 Days Qty: 60 11RF Print Language: Amharic
[2024-06-28 17:59] VITALS: BP 115/66; PULSE 60; PULSE 61; RESP 16; TEMP 36.3; TEMP 36.6; O2SAT 100
--- OUTSIDE RECORDS SUMMARY | 2024-06-28 17:59 | XMS_ITS | Clinical Summary ---
Author Organization [address] [address] Care Team Providers Care Recreation Manager Name Role Phone Unavailable Primary Care Provider [...]
--- OUTSIDE RECORDS SUMMARY | 2024-06-28 17:59 | XMS_ITS | Clinical Summary ---
Author Organization [facility] it Address [address] [place] [address] Care Team Providers Care Credit Officer Name Role Phone El Awan MD Primary Care Provider [phone] Surgical History Surgery Date Site/Laterality Comments SECTION PROCEDURE: HISTORICAL TUBAL LIGATION PROCEDURE: HISTORICAL TUBAL LIGATION HYSTERECTOMY PROCEDURE: HISTORICAL HYSTERECTOMY; COMMENT: for fibroids LAPAROSCOPIC GASTRIC BANDING 2005 PROCEDURE: LAP ADJUSTABLE GASTRIC BAND; COMMENT: insertion of adjustable band BELT ABDOMINOPLASTY 2009 PROCEDURE: HISTORICAL TUMMY TUCK UPPER GASTROINTESTINAL ENDOSCOPY 06/25/2018 PROCEDURE: UPPER GI ENDOSCOPY/EXAM; COMMENT: esophageal spasm, lap band, gastritis OTHER SURGICAL HISTORY 08/15/2018 PROCEDURE: PA LAPS GASTRIC RESTRICTIVE PX REMOVE DEVICE & PORT; COMMENT: removal of adjustable band BREAST BIOPSY 06/09/2010 Left PROCEDURE: BX BREAST; PERC NEEDLE CORE W/IMAG GUID; COMMENT: apocrine metaplasia OTHER SURGICAL HISTORY Right PROCEDURE: PA BRONCHOSCOPY W/TRANSBRONCHIAL LUNG BX EACH LOBE; COMMENT: RUL, RML - benign results BARIATRIC SURGERY 11/24/2018 PROCEDURE: PA LAPS GSTRC RSTRICTIV PX LONGITUDINAL GASTRECTOMY; COMMENT: Sleeve Gastrectomy UPPER GASTROINTESTINAL ENDOSCOPY 08/05/2019 PROCEDURE: PA UPPER GI ENDOSCOPY PERFORMED; COMMENT: biopsy pending [...] Cancer Screening 11/20/2020 11/21/19 19, 11/19/2017, 10/11/2016 Pneumococcal Vaccine: 50+ Years (1 of 1 - PCV) 2022 Zoster Vaccines (1 of 2) 2022 COVID-19 Vaccine (1 - season) 2023 Influenza Vaccine (Season Ended) 2024 [...] Documents on File Type Date Recorded Patient Neuro Urologist Expl anation Health Care Decision (hx) 11/18/2018 [...] (hx) 11/18/2018 AD ORELLANA DIRECTIVE Care Teams Credit Officer Relationship Specialty Start Date End Date El Awan MD [address] [place] [address] [place] [id number] PCP - General Internal Medicine 07/10/18
[2024-06-28 18:36] VITALS: BP 118/68; PULSE 64; RESP 18; TEMP 36.5; O2SAT 99
[2024-06-28 18:53] VITALS: BP 118/68; PULSE 64; RESP 18; TEMP 36.5; O2SAT 99
== END 2024-06-28 18:55 | disposition home or self-care (01) ==
PROVIDERS: Emergency Provider Emergency Medicine
DX: S20.219A Contusion of unspecified front wall of thorax, initial encounter (principal); S09.90XA Unspecified injury of head, initial encounter; W01.0XXA Fall on same level from slipping, tripping and stumbling without subsequent striking against object, initial encounter; Y93.9 Activity, unspecified; Y92.9 Unspecified place or not applicable; Y99.9 Unspecified external cause status; R07.81 Pleurodynia
CPT/HCPCS: 70450; 71250; 72125; 74176; 99284

== ENCOUNTER → 2024-06-28 16:10 | Outpatient (BNV) | payer BC, SELFPAY | PROVIDERS: Emergency Provider Emergency Medicine; Visit Provider Nuclear Medicine | DX: R10.9 Unspecified abdominal pain (principal); S09.90XA Unspecified injury of head, initial encounter; W19.XXXA Unspecified fall, initial encounter | CPT/HCPCS: 70450; 71250; 72125; 74176 ==

== ENCOUNTER 2024-07-10 09:28 | Outpatient (AMB) | payer BC, SELFPAY ==
--- NOTE | 2024-07-10 09:31 | MHC.PC.OV ---
Vital Signs 07/10/24 09:33 Height 5 ft 2 in Weight 203 lb 2 oz BMI 37.1 BP 126/78 Blood Pressure Location Lt brachial Position Sitting Pulse 51 Pulse Source Pulse Oximeter Temp 96.8 F Temp Source Temporal Artery Scan Pulse Oximetry (%) 99 Oxygen Delivery Method Room Air Intake Visit Reasons: [facility] 06/28 Intake Note: Patient is here to follow-up after a visit the emergency department at [facility] on 06/28/24 Site Inspector Required: No Senior Client Advisor: Present Accompanied by: Daughter Allergies levofloxacin Allergy (Severe, Verified 07/10/24 09:32) hives Tobacco use date assessed: 07/10/24 Dental Screening Dental Screen Date: 07/10/24 Did you have a dental visit in the last 12 months?: Yes Did you have a dental problem in the last 6 months where you did not have access to dental care?: No Was dental information given to patient?: Patient has dentist HPI HPI Comments History of Present Illness Details 54 yo Female patient who presents to the clinic for EDF. Pmhx significant for history of morbid obesity, fibromyalgia, RA, osteoarthritis, chronic pain, IBS, interstitial lung disease, sarcoidosis, and obstructive sleep apnea. Pt was admitted at [facility] on 06/28/24 for left rib pain after falling off a chair. Patient fell off a chair and fell directly onto her left chest. Imaging negative for fractures. Today Pt continues to have Pain; she has been taking Oxycodone, Ibuprofen and Muscle relaxants with no much relief. Pt asking to have prescription for Wegovy or Mounjaro for weight Loss. [facility] Medical History (Updated 07/10/24 @ 09:53 by Kim Logan NP) Contusion of left chest wall Lung mass COVID-19 Cervical mass Intercostal neuralgia Mixed connective tissue disease Transaminitis Sarcoidosis Class 2 severe obesity with body mass index (BMI) of 35 to 39.9 with serious comorbidity Closed fracture of phalanx of right fourth toe Toe fracture, right Right foot pain Toe pain, right Hot flashes Low libido Pre-op examination Adult general medical exam Diarrhea Screening for breast cancer Cervical cancer screening Screening for colon cancer 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, unspecified FCI systemic steroid user Pleuritic chest pain Sinusitis Headache Right ankle sprain Ankle pain Chest pain RUQ pain Thyroid nodule Lymphadenopathy Bradycardia Pneumonia BRCA gene positive Chronic idiopathic constipation Post herpetic neuralgia Multinodular thyroid [id number] syndrome Lump of left thigh ÁNGELA (obstructive sleep apnea) Insomnia ILD (interstitial lung disease) Sarcoidosis Dizziness SOB (shortness of breath) Surgical History H/O colonoscopy (~11/08/22) History of removal of ovarian cyst History of lung surgery History of breast biopsy Hx of abdominoplasty History of laparoscopic adjustable gastric banding History of tubal ligation History of section History of hysterectomy History of cholecystectomy Family History Father Cardiovascular disease Mother Cardiovascular disease Hypertension Thyroid condition History of breast cancer Daughter Thyroid condition Rheumatoid arthritis Sister Thyroid condition Brother Rheumatoid arthritis Maternal Aunt History of breast cancer Maternal Aunt History of breast cancer Maternal Aunt History of breast cancer Maternal Aunt History of breast cancer Social History Housing: House Alcohol intake: current Alcohol intake frequency: holidays/special occasions only Patient Tobacco Use Status: Former Tobacco user Tobacco use type: Cigarette Years Smoked: 15 years quit about 20 years ago e-Cigarette/Vaping Use: Never Used Second Hand Smoke Exposure: Yes service: No Current occupational status: unemployed Current occupation: rt handed Cognitive needs: No Hearing needs: No Vision needs: Yes (Glasses) Questionnaire PHQ-9 Over the last 2 weeks, how often have you been bothered by any of the following problems? 1. Little interest or pleasure in doing things: not at all 2. Feeling down, depressed, or hopeless: not at all 3. Trouble falling or staying asleep, or sleeping too much: nearly every day 4. Feeling tired or having little energy: not at all 5. Poor appetite or overeating: not at all 6. Feeling bad about yourself - or that you are a failure or have let yourself or your family down: not at all 7. Trouble concentrating on things, such as reading the newspaper or watching television: not at all 8. Moving or speaking so slowly that other people could have noticed. Or the opposite - being so fidgety or restless that you have been moving around a lot more than usual: not at all 9. Thoughts that you would be better off or of hurting yourself in some way: not at all Total score: 3 Depression Screening Interpretation: Positive Depression Screening Done: Yes Source: Developed by Drs. Terence Diaz, Leila Hawk, Jani Osborn and colleagues, with an educational ashley from [email or web address]. Thrive Questionnaire Date Thrive assessed: 07/09/24 I am a: Patient What is your living situation today?: I have a steady place to live Within the past 12 months, did the food you bought not last and you didn't have the money to get more?: Never true Within the past 12 months, did you worry whether your food would run out before you got money to buy more?: Never true Do you have trouble paying for medicines?: No Do you have trouble getting transportation to medical appointments?: No Do you have trouble paying your heating and electricity bill?: No Do you have trouble taking care of your child, family member or friend?: No Do you have trouble with day-to-day activities such as bathing, preparing meals, shopping, managing finances, etc.?: I choose not to answer this question Are you currently unemployed and looking for a job?: I choose not to answer this question Are you interested in more education?: Yes Please select the resources that you would like help with: None Currently or been in a relationship where the following occur: No concerns reported and I choose not to answer THRIVE Score: 0 AUDIT C Alcohol Use Questionnaire (AUDIT-C) 1. How often do you have a drink containing alcohol?: Never 3. How often do you have six or more drinks on one occasion?: Less than monthly Total Score: 1 YENNI-7 AMB Questionnaire YENNI-7 Date YENNI - 7 assessed: 07/10/24 Feeling nervous, anxious, or on edge: 0 = Not at all Not being able to stop or control worryin = Not at all Worrying too much about different things: 0 = Not at all Trouble relaxin = Not at all Being so restless that it is hard to sit still: 0 = Not at all Becoming easily annoyed or irritable: 0 = Not at all Feeling afraid as if something awful might happen: 0 = Not at all Total YENNI-7 score (0-4 normal; 5-9 mild; 10-14 moderate; 15-21 severe): 0 Source: Developed by Drs. Terence Diaz, Leila Hawk, Jani Osborn and colleagues, with an educational ashley from [email or web address]. Review of Systems Const All systems reviewed & are unremarkable except as noted in HPI and below Physical exam (Primary Care) Vital Signs: Last Vital Signs Temp 96.8 F 07/10/24 09:33 Pulse 51 07/10/24 09:33 BP 126/78 07/10/24 09:33 Pulse Ox 99 07/10/24 09:33 Oxygen Delivery Method Room Air 07/10/24 09:33 BMI result Body Mass Index 37.1 Tobacco/Smoking Status: Tobacco use Status Tobacco use date assessed 07/10/24 07/10/24 09:39 Patient Tobacco Use Status Former Tobacco user 07/10/24 09:39 Tobacco use type Cigarette 07/10/24 09:39 e-Cigarette/Vaping Use Never Used 07/10/24 09:39 PHQ-9: PHQ-9 Score PHQ-9: Total score 3 07/10/24 09:39 Depression Screening Interpretation: Positive Thrive Assessment: Date of Thrive Assessment Date Thrive assessed 07/09/24 07/10/24 09:39 Currently or been in a relationship where the following occur: No concerns reported and I choose not to answer Const General: no acute distress; No comfortable Nutritional Appearance: obese morbidly obese Orientation/consciousness: patient oriented x3 Resp Effort & Inspection: normal respiratory effort and able to speak in complete sentences Auscultation: clear to auscultation bilaterally, no crackles, no rales, no rhonchi and no wheezes Cardio Heart sounds: S1 normal heart sound present and S2 normal heart sound present Neuro General: patient oriented x3, gait normal and moves all extremities Coding Level of Care Code Est Pt Level 4 (14318) Diagnoses Contusion of left chest wall, initial encounter S20.212A Encounter type: initial encounter Time Spent (min) 20 Assessment & Plan Assessment & Plan (1) Contusion of left chest wall: Code(s): S20.212A - Contusion of left front wall of thorax, initial encounter Category: Medical Qualifiers: Encounter type: initial encounter Qualified Code(s): S20.212A - Contusion of left front wall of thorax, initial encounter Plan: Continue taking pain medications as prescribed. Ice/Hot Advise ED if Pain worse and severe SOB.
[2024-07-10 09:33] VITALS: BP 126/78; PULSE 51; TEMP 36; O2SAT 99; BMI 37.1
--- OUTSIDE RECORDS SUMMARY | 2024-07-10 09:49 | XMS_ITS | Clinical Summary ---
Author Organization [address] [address] Care Team Providers Care Manager Mechanical Name Role Phone Unavailable Primary Care Provider [...]
--- OUTSIDE RECORDS SUMMARY | 2024-07-10 09:49 | XMS_ITS | Clinical Summary ---
Author Organization [employer] [facility] it Address [address] [place] [address] Care Team Providers Care Analysis Analyst Name Role Phone El Awan MD Primary Care Provider [phone] Surgical History Surgery Date Site/Laterality Comments SECTION PROCEDURE: HISTORICAL TUBAL LIGATION PROCEDURE: HISTORICAL TUBAL LIGATION HYSTERECTOMY PROCEDURE: HISTORICAL HYSTERECTOMY; COMMENT: for fibroids LAPAROSCOPIC GASTRIC BANDING 2005 PROCEDURE: LAP ADJUSTABLE GASTRIC BAND; COMMENT: insertion of adjustable band BELT ABDOMINOPLASTY 2009 PROCEDURE: HISTORICAL TUMMY TUCK UPPER GASTROINTESTINAL ENDOSCOPY 06/25/2018 PROCEDURE: UPPER GI ENDOSCOPY/EXAM; COMMENT: esophageal spasm, lap band, gastritis OTHER SURGICAL HISTORY 08/15/2018 PROCEDURE: SD LAPS GASTRIC RESTRICTIVE PX REMOVE DEVICE & PORT; COMMENT: removal of adjustable band BREAST BIOPSY 06/09/2010 Left PROCEDURE: BX BREAST; PERC NEEDLE CORE W/IMAG GUID; COMMENT: apocrine metaplasia OTHER SURGICAL HISTORY Right PROCEDURE: SD BRONCHOSCOPY W/TRANSBRONCHIAL LUNG BX EACH LOBE; COMMENT: RUL, RML - benign results BARIATRIC SURGERY 11/24/2018 PROCEDURE: SD LAPS GSTRC RSTRICTIV PX LONGITUDINAL GASTRECTOMY; COMMENT: Sleeve Gastrectomy UPPER GASTROINTESTINAL ENDOSCOPY 08/05/2019 PROCEDURE: SD UPPER GI ENDOSCOPY PERFORMED; COMMENT: biopsy pending [...] (BMI) of 40.0 to 44.9 in adult ([facility]/HCC V24, [facility]/HCC V28) 10/21/2018 DX:Class 3 severe obesity d ue to excess calories with serious comorbidity and body mass index (BMI) of 40.0 to 44.9 in adult ([facility]) Snoring 06/17/2018 DX:Snoring Sarcoidosis 05/04/2019 DX:Sarcoidosis Family [...] 3-dose series) 05/25/1991 Breast Cancer Screening 11/20/2020 11/21/19, 11/19/2017, 10/11/2016 Pneumococcal Vaccine: 50+ Years (1 [...] Documents on File Type Date Recorded 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
== END 2024-07-10 10:23 | disposition home or self-care (01) ==
LOC: HO.HMCH 09:29
PROVIDERS: PCP Internal Medicine; Visit Provider Nurse Practitioner Family
DX: S20.212A Contusion of left front wall of thorax, initial encounter (principal)

== ENCOUNTER → 2024-07-10 09:28 | Outpatient (BNVA) | payer BC, SELFPAY | PROVIDERS: PCP Internal Medicine; Visit Provider Nurse Practitioner Family ==

== ENCOUNTER 2024-07-30 15:20 | Outpatient (AMB) | payer BC, SELFPAY ==
--- NOTE | 2024-07-30 15:22 | A.OFFVIS_ITS ---
Vital Signs 07/30/24 15:36 Height 5 ft 2 in Weight 206 lb BMI 37.7 BP 95/69 Blood Pressure Location Lt brachial Position Sitting Pulse 71 Pulse Oximetry (%) 96 Oxygen Delivery Method Room Air Intake Visit Reasons: Esophageal dena 6 mo f/u R/S per pt. Intake Note: Patient follow up for Esophageal dena 6 mo. 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 Required: No Accompanied by: Self / Same As Patient Allergies levofloxacin Allergy (Severe, Verified 07/30/24 15:32) hives HPI HPI Esophageal dena 6 mo f/u R/S per pt.: Details: Assessment & Plan (1) GERD (gastroesophageal reflux disease): Code(s): K21.9 - Gastro-esophageal reflux disease without esophagitis Category: Medical (2) Irritable bowel syndrome with both constipation and diarrhea: Code(s): K58.2 - Mixed irritable bowel syndrome Category: Medical (3) Candidiasis of mouth and esophagus: Code(s): B37.81 - Candidal esophagitis; B37.0 - Candidal stomatitis Category: Medical Plan She developed sudden onset of early satiety and an off feeling when she was eating. After asking several questions it seems that she had a bad tooth and was on antibiotics for a while and the symptoms sound like they are probably esophageal/Dena of the GI tract. I will give her a trial of Diflucan for 10 days to see if this solves the problem and if it does not she will call me return to our services. Otherwise she remains satisfied with her GI regimen and is moving her bowels well. She continues on her Amitiza, 16 micro g twice a day, omeprazole morning and famotidine at night. Return office visit in 6 months or sooner if needed Medications: New fluconazole (Diflucan) 200 mg PO DAILY 10 tabs 0RF 10 days B37.81 - Candidal esophagitis, B37.0 - Candidal stomatitis Refilled [id number] 36,000-114,000- 180,000 unit (Creon) administer with meals and/or snacks 1 cap PO QID 120 caps 3RF lubiprostone 16 mcg (2 x 8 mcg) PO BID 360 caps 1RF K58.2 - Mixed irritable bowel syndrome omeprazole 40 mg PO DAILY 90 caps 2RF simethicone after meals 180 mg PO QID 120 caps 3RF 30 days TODAY'S VISIT She continues on her Amitiza, 16 micro g twice a day, omeprazole morning and famotidine at night. She has been having more diarrhea recently, but it seems she has been out of her creon. We will restart this prior to considering additional test or interventions. She is s/p lap band surgery, but now the weight is coming back. She wants to get on a GLP-1, but her PCP is unwilling. The wt mgmt is important becase of her RA and joint problems. The [facility] wt dept does not do medical wt mgmt, so I recommend she check with [facility] and I have been told that they do medical wt mgmt. ROV 8 weeks. [facility] Medical History (Updated 07/10/24 @ 09:53 by Kim Logan NP) Contusion of left chest wall Lung mass COVID-19 Cervical mass Intercostal neuralgia Mixed connective tissue disease Transaminitis Sarcoidosis Class 2 severe obesity with body mass index (BMI) of 35 to 39.9 with serious comorbidity Closed fracture of phalanx of right fourth toe Toe fracture, right Right foot pain Toe pain, right Hot flashes Low libido Pre-op examination Adult general medical exam Diarrhea Screening for breast cancer Cervical cancer screening Screening for colon cancer 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, unspecified MCC systemic steroid user Pleuritic chest pain Sinusitis Headache Right ankle sprain Ankle pain Chest pain RUQ pain Thyroid nodule Lymphadenopathy Bradycardia Pneumonia BRCA gene positive Chronic idiopathic constipation Post herpetic neuralgia Multinodular thyroid [id number] syndrome Lump of left thigh ÁNGELA (obstructive sleep apnea) Insomnia ILD (interstitial lung disease) Sarcoidosis Dizziness SOB (shortness of breath) Surgical History H/O colonoscopy (~11/08/22) History of removal of ovarian cyst History of lung surgery History of breast biopsy Hx of abdominoplasty History of laparoscopic adjustable gastric banding History of tubal ligation History of section History of hysterectomy History of cholecystectomy Family History Father Cardiovascular disease Mother Cardiovascular disease Hypertension Thyroid condition History of breast cancer Daughter Thyroid condition Rheumatoid arthritis Sister Thyroid condition Brother Rheumatoid arthritis Maternal Aunt History of breast cancer Maternal Aunt History of breast cancer Maternal Aunt History of breast cancer Maternal Aunt History of breast cancer Social History Housing: House Alcohol intake: current Alcohol intake frequency: holidays/special occasions only Patient Tobacco Use Status: Former Tobacco user Tobacco use type: Cigarette Years Smoked: 15 years quit about 20 years ago e-Cigarette/Vaping Use: Never Used Second Hand Smoke Exposure: Yes service: No Current occupational status: unemployed Current occupation: rt handed Cognitive needs: No Hearing needs: No Vision needs: Yes (Glasses) Review of Systems Const Denies fatigue, Denies fever(s), Denies night sweats, Denies poor appetite, Reports weight gain and Denies weight loss ENT Details: glasses Reports Normal hearing present, Denies dental pain, Denies dysphagia, Denies hearing loss, Denies mouth pain, Denies odynophagia, Denies throat swelling, Denies tongue swelling and Reports other (Dentition adequate) Card Reports no additional complaints Resp Reports no additional complaints GI Details: Denies abdominal pain, Denies melena, Denies bloating, Denies hematochezia, Reports constipation, Denies GI cramping, Denies dysphagia, Denies excessive flatus, Denies early satiety, Reports heartburn, Denies diarrhea, Denies nausea, Denies odynophagia, Denies vomiting and Denies hematemesis Musc Reports myalgias, Reports arthralgias and Reports stiffness Skin/Breast Denies pruritus, Denies lesions, Denies rash and Denies jaundice Neuro Reports Normal hearing present and Denies Abnormal speech present Endo Denies fatigue Aller/Immun Denies throat swelling and Denies tongue swelling Physical Exam Vital Signs: Last Vital Signs Pulse 71 07/30/24 15:36 BP 95/69 07/30/24 15:36 Pulse Ox 96 07/30/24 15:36 Oxygen Delivery Method Room Air 07/30/24 15:36 BMI result Body Mass Index 37.7 Const General: cooperative, no acute distress, well developed and well groomed Nutritional Appearance: well nourished and obese Orientation/consciousness: oriented to person, oriented to place and oriented to time Limitations: No language barrier HEENT Head: Yes normocephalic and Yes atraumatic Eyes General: appearance normal, both eyes and all related structures Pupils: Equal, round and reactive pupils present Neck Neck: Yes normal visual inspection and Yes no lymphadenopathy Thyroid: Thyroid normal Resp Effort & Inspection: normal respiratory effort and able to speak in complete sentences Auscultation: clear to auscultation bilaterally Cardio Rate: regular rate Rhythm: regular rhythm Heart sounds: Normal, physiologic split S2 sound present Peripheral pulses: radial pulses present and posterior tibial pulses present GI Inspection: No distended, Yes Abdominal panniculus present and Yes obesity Palpation (GI): Soft to palpation, nontender, no guarding, not rigid and No hepatosplenomegaly present Percussion: Yes normal to percussion Auscultation: normal bowel sounds Rectal Exam - Female: deferred Skin General skin exam: no rashes or lesions noted, turgor normal, skin not dry, no jaundice, No spider nevi and no striae Rashes: no rashes Nails: normal Neuro General: oriented to person, oriented to place and oriented to time Cranial nerves: Yes Equal, round and reactive pupils present and Yes Normal hearing present Speech: No Abnormal speech present Extrem General: Yes normal to inspection, No clubbing, No cyanosis and No edema Psych Appearance: grossly normal and well kempt Mental Status: mental status grossly normal Speech and movement: Normal speech and movement present Affect: normal affect Attitude: cooperative Thought process: Normal thought process present and not confabulating Thought content: Normal thought content present Insight: Fair insight present (Psych) Judgement: Fair judgement present (Psych) Assessment & Plan Assessment & Plan (1) GERD (gastroesophageal reflux disease): Code(s): K21.9 - Gastro-esophageal reflux disease without esophagitis Category: Medical (2) Irritable bowel syndrome with both constipation and diarrhea: Code(s): K58.2 - Mixed irritable bowel syndrome Category: Medical Plan She continues on her Amitiza, 16 micro g twice a day, omeprazole morning and famotidine at night. She has been having more diarrhea recently, but it seems she has been out of her creon. We will restart this prior to considering additional test or interventions. She is s/p lap band surgery, but now the weight is coming back. She wants to get on a GLP-1, but her PCP is unwilling. The wt mgmt is important becase of her RA and joint problems. The [facility] wt dept does not do medical wt mgmt, so I recommend she check with [facility] and I have been told that they do medical wt mgmt. ROV 8 weeks. Medications: Changed From [id number]-kxxtohtu-rnlrnmi 36,000-114,000- 180,000 unit (Creon) administer with meals and/or snacks 1 cap PO QID 120 caps 3RF To [id number] 36,000-114,000- 180,000 unit (Creon) administer with meals and/or snacks 1 cap PO BID 120 caps 6RF Refilled omeprazole 40 mg PO DAILY 90 caps 2RF simethicone after meals 180 mg PO QID 120 caps 3RF 30 days lubiprostone 16 mcg (2 x 8 mcg) PO BID 360 caps 1RF K58.2 - Mixed irritable bowel syndrome omeprazole 40 mg PO DAILY 90 caps 2RF [id number]-sfbcaoq 36,000-114,000- 180,000 unit (Creon) administer with meals and/or snacks 1 cap PO BID 120 caps 6RF Coding Level of Care Code Est Pt Level 3 (25014) Diagnoses GERD (gastroesophageal reflux disease) K21.9 Irritable bowel syndrome with both constipation and diarrhea K58.2
[2024-07-30 15:36] VITALS: BP 95/69; PULSE 71; O2SAT 96; BMI 37.7
== END 2024-07-30 15:53 | disposition home or self-care (01) ==
LOC: HO.HGI 15:21
PROVIDERS: PCP Internal Medicine; Visit Provider Nurse Practitioner
DX: K21.9 Gastro-esophageal reflux disease without esophagitis (principal); K58.2 Mixed irritable bowel syndrome
CPT/HCPCS: 99213

== ENCOUNTER → 2024-07-30 15:20 | Outpatient (BNVA) | payer BC, SELFPAY | PROVIDERS: PCP Internal Medicine; Visit Provider Nurse Practitioner ==

== ENCOUNTER 2024-07-31 15:20 | Outpatient (AMB) | payer BC, SELFPAY ==
--- NOTE | 2024-07-31 15:23 | A.OFFVIS_ITS ---
Vital Signs 07/31/24 15:24 Height 5 ft 2 in Weight 208 lb 5.389 oz BMI 38.1 BP 104/62 Blood Pressure Location Rt brachial Position Sitting Pulse 75 Pulse Source Pulse Oximeter Pulse Oximetry (%) 99 Oxygen Delivery Method Room Air Intake Visit Reasons: ILD [employer] Required: No Accompanied by: Self / Same As Patient Allergies levofloxacin Allergy (Severe, Verified 07/31/24 15:26) hives HPI Comments Details: The patient is a 54-year-old woman with a known history of rheumatoid arthritis previously on immunomodulators including methotrexate and Humira. Apparently back in May 05, 2018 the patient developed a tooth abscess needing antibiotics. Subsequently complicated by pneumonia. She was admitted to [facility] which was found to have ground-glass opacities bilaterally consistent with pneumonitis and also nodular densities in the right middle lobe. She was evaluated by Pulmonary at that point. If felt necessary for her to have a bronchoscopy. Apparently I do not have the details of the bronchoscopy which she may have had some bleeding therefore not leading to any biopsies. However, her cultures were all negative for infection. Subsequently after that she developed worsening nodular densities in the right upper lobe and also again the right middle lobe on repeat CT scans of the chest and therefore the patient was referred to additional entry level assistant manager and also referred to thoracic surgery. She did undergo a Navagation-guided biopsy of the consolidated lung. Was consistent with non-necrotizing granulomas which is very suspicious of sarcoidosis. The patient has other symptoms in addition to some hair loss she has had some visual loss denies any rashes she has significant arthritis and swelling of her body. The question is if this is related to sarcoid or related to her underlying connective tissue disease. At this point based on the fact that she has failed methotrexate and has significant evidence of sarcoid in addition to interstitial lung disease the patient needs to be placed on immunomodulator therapy. Therefore, I will send her CellCept. Patient also will take prednisone in the meantime. I did speak to her debone processing supervisor about this. She is scheduled to undergo a CT scan of chest the end of this month. Will see if the medication is helping some size some of the findings. Apparently she was started on CellCept to help her with her inflammatory autoimmune condition. However, after starting the small dose of 500 twice a day the patient started having multiple complaints including lightheadedness, nausea vomiting, memory loss and weakness. She was not started on any other medicine. Therefore the patient came in to be benjamin kent. She also stop the prednisone about a day ago. She started to develop significant swelling of her hands and risk. Right more than left. She does have a CT scan of the scan plan for the beginning of May. At this point the av request the patient stop the medicine. I will provide her Solu-Medrol 125 mg IM and she should restart the prednisone. I will also refer the patient to the sarcoid clinic at [facility]. Based on the fact the patient has tried and failed methotrexate and now mycophenolate I do not believe immunomodulators are good option for her. Therefore, based on the fact that she has a do a diagnosis of both sarcoidosis and rheumatoid arthritis I do believe using Remicade may be a reasonable option. I will reach out to her debone processing supervisor at this time. We did discuss her CT scan that she had recently demonstrating interval improvement in her areas of consolidation which is reassuring. 04/30/2022 the patient is here for a pulmonary follow-up visit. She is complaining of worsening pleuritic chest discomfort. She had been well until recently and she became sick with likely a viral syndrome. She has been coughing more. She has been concerned because now her pleuritic discomfort that typically is only on her right side now also involving her left. Denies any significant mucus production at this time. Denies any significant shortness of breath. She is scheduled to see Rheumatology sometime this week. Therefore, explained to her that be best to hold off on any steroid therapy that may interfere with the analysis that will be required. Therefore will work on pain management and also request a chest x-ray. If she has has worsening findings on the x-ray but no be reasonable to treat her more urgently. 07/02/2022 the patient is here for a pulmonary follow-up visit. She is complaining of worsening pleuritic chest discomfort. Moderate in severity. Not any worse. Was referred to pain clinic. Last CT ches was in 01/2022 with lumg mass. She will be starting Orencia soon. Will plan to repeat CT chest after 3-4 month of therapy. Has not required any prednisone. She is confused with her diagnosis. I reassured her that based on her biopsy with non necrotizing granulomas consistent with a sarcoid like activity. Likely a manifestation of her autoimmune disease. Does not appear to be consistent with medication induced or smoldering infections. She also has difficulty sleeping. She is using Lunesta as needed. Currently helping taking care of a so she is not using it as often. 11/13/2022 the patient is here for pulmonary follow-up visit. She continues to have worsening pleuritic discomfort. Moderate to severe. The patient is very discouraged rate now. Her discomfort is primarily on the right side. She is working closely with pain management. In the meantime she did have a CT scan of the chest that I personally reviewed. It appears that the right-sided masslike density has increased in size. Again the biopsy was suggestive of a sarcoid like reaction. She did follow-up with Rheumatology. Appears that her blood work is consistent with rheumatoid arthritis. She was prescribed Orencia [facility], the patient has not been able to start the medication as of yet. The patient has been off all CellCept and also has not been on any prednisone. Explained to her that with this inflammatory process she does need a component of anti-inflammatory therapy. The patient is also having pain. At this point will provide her with analgesia to provide her with some relief. the patient will start the prednisone and subsequently hopefully start the Orencia soon in order to repeat the CT scan in 3 months time. If the patient does not respond to therapy then referral to [facility] will requested. 02/14/2023 The patient has a telehealth visit. She started developing flu like symptoms 3 days ago. She went to the ED and sent home, then she tested with ahome test and has positive for covid yesterday. Having more asthma symptoms. She had been taking Orencia for her RA and had been on prednisone 20mg. But she has been off the Orencia and also the prednisone. She will be starting Paxlovid x 5 days. We did review her CT cest, It is reassuring that her mass like density has not changed. Although, she does have a new pulmonary nodule. Appears to be in a vascular distribution and would benefit in a CT chest with IV contrast for the next evaluation. She continues to have pain and does respond well to the oxycodone. She also recently fractured her toe and is recovering for that as well. 07/08/2023 the patient is here for a pulmonary follow-up visit. Overall she is doing fairly well. She has been active and changing her lifestyle and exercising. She is lost some weight which is reassuring. Her breathing is stable. Her arthritis is also stable. She continues on the Orencia. She also continues on a small dose of prednisone. Seems to be tolerating well. 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 We did review her recent CT scan of the chest and also compared to the CT scan that she had back in the fall and also late summer. This was in 2022. Appears that the masslike density it slowly decreasing in size. He still spiculated still has nodular densities surrounding it. This is by on biopsied couple times and is negative for any malignant process although still a concerning the can mask. I am reassured that with the biopsies and I am reassured with the fact that has not been increasing in size. No significant lymphadenopathy that I can appreciate. The other ground-glass areas are better. Therefore will repeat the CT scan in 6 months and she will co ntinue with current therapy. 01/09/2024 the patient is here for a pulmonary follow-up visit. She is having worsening right-sided chest discomfort. She is having to use the oxycodone more often. The amount of medication is not lasting. She continues on the Orencia. Does not seem to be as effective. She also requires prednisone for her arthritis at times. She did have repeat CT scan of the chest in December. Has not been officially read unfortunately. I did review it and compared to her previous CT scan. Does not appear to be any significant changes. The patient is wondering if there is a way to remove that area. I am concerned because she is already has had surgery in without any significant improvement. Initially the thought was that she had a sarcoid like reaction she was sent to the sarcoid Clinic although was not clear if she truly sarcoid or just a sarcomatoid reaction. Most likely related to connective tissue disease. At this point will go ahead and refer her to [facility] to have her be evaluated by the interstitial disease clinic there to see if any other potential options for her specially since she still continues to have significant discomfort. I do believe that part of the discomfort is the postthoracotomy syndrome so more surgery may result in more discomfort. The patient does have some concerns if this is cancer although he has been biopsy-proven that this is inflammatory process. Does not seem to be changing significantly. 04/14/2024 the patient is here for pulmonary follow-up visit. She continues to have persistent pain in that site. It is moderate to severe. Sometimes it keeps her from falling sleep. She has been on oxycodone I did have to increase the frequency of the oxycodone because her pain was getting worse. Although I do not like to prescribe this medication is seems to be providing her some relief. In addition to that she has the prednisone prescription. She does not take it all the time only when she has a flare-up. also, when she has flare up she does develop induration send her scan primarily around the elbows. Very suspicious for rheumatoid nodules although sarcoid can also manifest in the skin. She is also continues on the Orencia. She is now establishing care in [place] because of her complexity of disease. We will be helpful to see if she can see Rheumatology also [place]. She was evaluated by Pulmonary at [facility]. They still need the pathology. She has had multiple pathologies done last time was from bronchoscopy that I performed with transbronchial biopsies just demonstrating some chronic inflammation although nondiagnostic. She did have a surgical biopsy this was done at [facility]. Will try to get the pathology reports in the specimen sent to bringing woman so they can review it. She is going to have another CT scan but this will be done at [facility]. Otherwise patient is without any other complaints 07/31/2024 the patient is here for pulmonary follow-up visit. Overall the patient is doing about the same. She had a bad fall back in June and she actually went to the ER because she hurt her left hemothorax. She did have a CT scan of the cervical neck head chest and abdomen. No significant findings except for her masslike density in the right hemithorax. This appears to be unchanged if not just a slight increase from 2023. She has been on the Orencia without any significant improvement. She recently saw Rheumatology and she is looking to start Remicade. Will plan to repeat a CAT scan 4 months after the Remicade in therapy to see how responsive it is. I do believe that the parenchymal disease that she has right now the lungs is also connected to the connective tissue disease and therefore any positive response to therapy will be evaluated and seen by decreasing the size of this masslike inflammatory density. The patient still having pain issues and she does respond well to the oxycodone and I will go ahead and send the oxycodone to the pharmacy. Will plan to follow-up after her CAT scan in 4 months. If she has any issues prior to that she will call for an earlier assessment. [facility] Medical History (Updated 07/10/24 @ 09:53 by Kim Logan NP) Contusion of left chest wall Lung mass COVID-19 Cervical mass Intercostal neuralgia Mixed connective tissue disease Transaminitis Sarcoidosis Class 2 severe obesity with body mass index (BMI) of 35 to 39.9 with serious comorbidity Closed fracture of phalanx of right fourth toe Toe fracture, right Right foot pain Toe pain, right Hot flashes Low libido Pre-op examination Adult general medical exam Diarrhea Screening for breast cancer Cervical cancer screening Screening for colon cancer 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, unspecified FCI systemic steroid user Pleuritic chest pain Sinusitis Headache Right ankle sprain Ankle pain Chest pain RUQ pain Thyroid nodule Lymphadenopathy Bradycardia Pneumonia BRCA gene positive Chronic idiopathic constipation Post herpetic neuralgia Multinodular thyroid [id number] syndrome Lump of left thigh ÁNGELA (obstructive sleep apnea) Insomnia ILD (interstitial lung disease) Sarcoidosis Dizziness SOB (shortness of breath) Surgical History H/O colonoscopy (~11/08/22) History of removal of ovarian cyst History of lung surgery History of breast biopsy Hx of abdominoplasty History of laparoscopic adjustable gastric banding History of tubal ligation History of section History of hysterectomy History of cholecystectomy Family History Father Cardiovascular disease Mother Cardiovascular disease Hypertension Thyroid condition History of breast cancer Daughter Thyroid condition Rheumatoid arthritis Sister Thyroid condition Brother Rheumatoid arthritis Maternal Aunt History of breast cancer Maternal Aunt History of breast cancer Maternal Aunt History of breast cancer Maternal Aunt History of breast cancer Social History Housing: House Alcohol intake: current Alcohol intake frequency: holidays/special occasions only Patient Tobacco Use Status: Former Tobacco user Tobacco use type: Cigarette Years Smoked: 15 years quit about 20 years ago e-Cigarette/Vaping Use: Never Used Second Hand Smoke Exposure: Yes service: No Current occupational status: unemployed Current occupation: rt handed Cognitive needs: No Hearing needs: No Vision needs: Yes (Glasses) Review of Systems Const Denies chills, Reports headache(s) and Denies weight loss ENT Reports headache(s) Card Reports chest pain, Denies syncope, Denies irregular heart rhythm and Denies dyspnea Resp Denies chest congestion, Reports cough, Reports pain on inspiration, Reports pain with cough, Denies dyspnea and Reports wheezing GI Denies abdominal pain, Denies change in stool character, Denies nausea and Denies vomiting Musc Denies deformity and Denies joint swelling Neuro Denies syncope and Reports headache(s) Aller/Immun Reports wheezing Physical Exam Vital Signs: Last Vital Signs Pulse 75 07/31/24 15:24 BP 104/62 07/31/24 15:24 Pulse Ox 99 07/31/24 15:24 Oxygen Delivery Method Room Air 07/31/24 15:24 BMI result Body Mass Index 38.1 Const General: comfortable and alert HEENT Head: Yes normal to inspection Ears: TM abnormal with fluid behind the TM (minimal) bilateral General nose exam: Abnormal mucous membranes and turbinates present erythematous Face and sinus: Yes sinus tenderness and Yes Facial tenderness on exam of face and sinuses Throat: Yes postnasal drainage and Yes cobblestoning Neck Neck: Yes normal visual inspection, Yes full ROM and Yes no lymphadenopathy Chest Chest palpation & inspection: normal inspection of the chest Resp Effort & Inspection: normal respiratory effort Auscultation: diminished lung sounds Cardio Rate: regular rate Rhythm: regular rhythm Heart sounds: S1 normal heart sound present and S2 normal heart sound present GI Palpation (GI): Soft to palpation and nontender Auscultation: normal bowel sounds Skin General skin exam: rashes and/or lesions noted Assessment & Plan Assessment & Plan (1) ILD (interstitial lung disease): Code(s): J84.9 - Interstitial pulmonary disease, unspecified Category: Medical (2) Seropositive rheumatoid arthritis: Comment: +++RF+++CCP Onset early 2014. SSZ started 02/15 - stopped due diarrhea MTX taken briefly 2015- May 2015? MTX restarted 07/18- changed to SC Dec 2016 due to nausea Humira added 02/18 to methotrexate. Both stopped 04/22 due to infection. Humira was suspected to have caused lung issues (?drug induced sarcoid) MTX and Humira remained held 03/23 04/23: Cellcept started by pulmonary - GI side effects, confusion so it was stopped 07/21 methotrexate and Humira restarted stopped sometime in 2020 Imuran briefly, not sure what happened with that 2020 Orencia attempted got denied. Approved 07/2022, started 01/2023 effective Code(s): M05.9 - Rheumatoid arthritis with rheumatoid factor, unspecified Category: Medical (3) Sarcoidosis: Comment: Sarcoid like reaction secondary auto-immune disease versus a medication reaction while taking the TNF inhibitor 2018 lung biopsy with non caseating granulomas Code(s): D86.9 - Sarcoidosis, unspecified Category: Medical (4) Lung mass: Comment: Surgical biopsy with a combination of granulomas, organizing pneumonia and lipid aspiration Code(s): R91.8 - Other nonspecific abnormal finding of lung field Category: Medical Plan Pain control: Lidoderm patch, percocet Gabapentin for sleep will stop Orencia, awaiting to start Remicade PPI reflux diet Lunesta as needed for sleep F/U with Rheumatology CT chest at [facility] Follow-up in 3-4 months Medications: Refilled oxycodone Partial Fill upon patient request. 5 mg PO Q6H PRN 40 tabs 0RF pain 10 days R91.8 - Other nonspecific abnormal finding of lung field Coding Level of Care Code Est Pt Level 4 (80330) Complex EM visit Add On G2211 Diagnoses ILD (interstitial lung disease) J84.9 Seropositive rheumatoid arthritis M05.9 Sarcoidosis D86.9 Lung mass R91.8 Time Spent (min) 17
[2024-07-31 15:24] VITALS: BP 104/62; PULSE 75; O2SAT 99; BMI 38.1
== END 2024-07-31 16:01 | disposition home or self-care (01) ==
LOC: HO.HPS 15:21
PROVIDERS: PCP Nurse Practitioner Family; Visit Provider Hospitalist
DX: J84.9 Interstitial pulmonary disease, unspecified (principal); M05.9 Rheumatoid arthritis with rheumatoid factor, unspecified; D86.9 Sarcoidosis, unspecified; R91.8 Other nonspecific abnormal finding of lung field
CPT/HCPCS: 99214

== ENCOUNTER → 2024-09-17 12:45 | Outpatient (BNV) | payer BC, SELFPAY | PROVIDERS: PCP Internal Medicine; Visit Provider Internal Medicine | DX: Z12.31 Encounter for screening mammogram for malignant neoplasm of breast (principal) | CPT/HCPCS: 77063; 77067 ==

== ENCOUNTER 2024-09-17 12:46 | Outpatient (REF) | payer BC, SELFPAY ==
--- OUTSIDE RECORDS SUMMARY | 2024-09-17 13:12 | XMS_ITS | Data Portability ---
Author Organization [employer] - [facility] Address [address] [place] [phone] Care Team Providers Care Pharmacy Picking Tech Name Role Phone MARANDA ROSENK Primary Care Provider Assessment Encounter Date Assessment Date Assessment LastModified by Organization Details LastModified Time 08/19/2024 08/19/2024 Obesity class 3 s/p lap-band 2013, sleeve gastrectomy 2018 -- Low glycemic diet, high protein breakfast, food order -- Food log -- RD -- Weigh at least 1-2x/week, log in [employer] -- Increase exercise as tolerated - cardio and strength -- Start topiramate 25 mg 1 tablet by mouth in evening before dinner for 2 weeks, then increase to 2 tablet by mouth in the evening before dinner. -- Future: bupropion, glp (caution reflux, clarify w/GI re Creon), metformin (caution chronic diarrhea/consti pation), phen -- Avoid naltrexone given chronic opioid use COPD, Asthma -- follows w/pulm -- stable on current regimen MASLD -- monitor w/above ÁNGELA -- resolved with weight loss Migraines -- rare Diarrhea, constipation -- follows with GI -- improved on creon GERD -- on famotidine, omeprazole, simethicone -- utd egd S/p lung resection -- oxycodone 5 mg, gabapentin 300-600 mg nightly for pain --> reviewed weight gaining effects of medication, discuss using lowest effective dose/weight-angelo tral alternative with prescribing provider RA, Sarcoid, MCTD -- on remicade infusion -- prev on chronic steroids Vit D and B12 deficiency -- cont otc supplement -- add bariatric MVI daily Followup: Appt w/ MD: 3 mo w/me Total time spent on the date of this encounter = 62 minutes; including documenting clinical information in the EHR and preparing to see the patient, obtaining and/or reviewing separately obtained history, and/or evaluation and counseling and educating the patient brittany Not available 08/19/2024 17:06:55 Plan of Treatment Reminders Order Date Submit Date Provider Last Modified By Organization Details Last Modified Time Details Appointments RD NEW PATIENT (RDN)-[id number] 2024 01:00P Enriqueta Potts RD Not available Not available Not available Lab None recorded. Referral None recorded. Procedures None recorded. Surgeries None recorded. Imaging None recorded. Medication Orders topiramat e 25 mg tablet 2024 025 [facility]Pharmacy #[id number], [id number] [facility] , [place], [id number], 08/19/2024 16:44:35 Patient TargetsNo targets recorded. Patient Instructions Encounter Date Encounter Id Patient Instructions Last Modified By Organization Details Last Modified Time 08/19/2024 [id number] Hi -- It was salvador e speaking with you! Some reminders and suggestions about what we discussed: - High protein, low carb dietary strategy. Prioritize eating whole foods, including lots of fruits and veggies - High protein breakfasts (e.g. eggs, yogurt, protein bars/shakes) - Food order: eat protein and vegetables before carbohydrates (carbs last!) - Look at the dietary handouts in the [employer] for more info, including meal ideas, recipes, etc - Exercise: goal of cardio (including walking) 30 min 5 days/week, strength/resistanc e training (including using body weight) 2 days/week - Weigh yourself at least weekly, log it in the [email or web address] dusty (or use a connected scale) - Start topiramate 25 mg 1 tablet by mouth in evening before dinner for 2 weeks, then increase to 2 tablet by mouth in the evening before dinner. - Please call the office at [phone], option 1 to schedule your follow up appointments. Always feel free to reach out with any questions or concerns by sending a message through the [employer] patient portal or by calling our office. Mary Salazar MD iredmond Not available 08/19/2024 16:44:47 Reason for Referral None Reported. Problems Name Problem SNOMED Code Status Onset Date Resolution Date Notes Provider Name and Address Organization Details Recorded Time Endocrine/m etabolic screening Active 2023 Lori De La Fuente [facility]. - [facility] 4 13:51:37 Obesity 562383486 Active 2024 Jenise Hurley [facility]. - [facility] 10:02:04 Steatotic liver disease 706149439 Active 2024 Mary Ramires MD [address] [place] [address],[address], [place], [address], [facility] 16:42:49 Obstructive sleep apnea syndrome 18230164 Active 2024 Mary Ramires MD [address] [place] [address],[address], [place], [address], [facility] 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 - [facility] 16:43:00 Gastroesoph ageal reflux disease 447360226 Active 2024 Mary Ramires MD [address] [place] [address],[address], [place], [address], [facility] - [facility] 16:43:03 Obese class III 147262604 Active 2024 Mary Ramires MD [address] [place] [address],[address], [place], [address], [facility] [employer] [facility]. - [facility] 16:43:09 Rheumatoid arteritis 247817539 Active 2024 Mary Ramires MD [address] [place] [address],[address], [place], [address], [facility] [employer] [facility]. - [facility] 16:43:20 Sarcoidosis 20668142 Active 2024 Mary Ramires MD [address] [place] [address],[address], [place], [address], [employer]. - [facility] 16:43:30 Connective tissue disease overlap syndrome 693859377 Active 2024 Mary Ramires MD [address] [place] [address],[address], [place], [address], [employer]. - [facility] 16:43:34 Vitamin D deficiency 41400600 Active 2024 Mary Ramires MD [address] [place] [address],[address], [place], [address], [employer]. - [facility] 16:43:39 Cobalamin deficiency 928794276 Active 2024 Mary Ramires MD [address] [place] [address],[address], [place], [address], [employer]. - [facility] 16:43:45 Problem Notes None recorded. Procedures Surgical History Date Name Laterality Status Provider Name and Address Organization Details Recorded Time section completed [facility]. - [facility] 17:08:36 ligation of fallopian tube completed [facility]. - [facility] 17:08:42 hysterectomy completed [facility]. - [facility] 17:08:[address] of [address] ach using band completed [facility]. - [facility] 17:08:59 circumferential abdominoplasty completed [facility]. - [facility] 17:09:09 esophagogastroduodenoscopy completed [facility]. - [facility] 17:09:20 biopsy of breast completed [facility]. - [facility] 17:09:49 bariatric operative procedure completed [facility]. - [facility] 17:10:02 esophagogastroduodenoscopy completed [facility] [employer] [facility]. [facility] [place] [facility] 5 17:10:13 Imaging Results None recorded. Procedure Notes None recorded. Medical Equipment None Reported. Allergies Allergen ID Allergen Name Allergen Category Reaction Reaction Severity Criticality Documentation Date Start Date Code Code System Note Provider Name and Address Organization Details Recorded Time 85457 Levaquin medicatio n hives Not available Not available 08/19/2024 82762 2 RxNorm Mary Ramires MD [address] [place] [address],[address] [facility], [place], [address] [place] [address] [employer] [facility] [place] [facility] 5 16:09:41 Medications Name Sig Start Date Stop Date Status Note LastModified by Organization Details LastModified Time amoxicillin 500 mg capsule TAKE 1 CAPSULE BY MOUTH 4 TIMES A DAY 08/19 completed Not Available Not Available Not Available prednisone 10 mg tablet TAKE 2 TABLETS BY MOUTH EVERY DAY 08/19 completed Not Available Not Available Not Available simethicone 180 mg capsule TAKE 1 CAPSULE BY MOUTH 4 TIMES A DAY AFTER MEAL FOR 30 DAYS active Not Available Not Available No t Available fluconazole 200 mg tablet TAKE 1 TABLET BY MOUTH DAILY FOR 10 DAYS 08/19 completed Not Available Not Available Not Available famotidine 40 mg tablet TAKE 1 TABLET BY MOUTH AT BEDTIME active Not Available Not Available No t Available penicillin V potassium 500 mg tablet TAKE 1 TABLET BY MOUTH THREE TIMES A DAY FOR 10 DAYS 08/19 completed Not Available Not Available Not Available topiramate 25 mg tablet PLEASE SEE ATTACHED FOR DETAILED DIRECTION S active Not Available Not Available No t Available omeprazole 40 mg capsule,del ayed release TAKE 1 CAPSULE BY MOUTH EVERY DAY active Not Available Not Available No t Available acetaminoph en 500 mg tablet TAKE 1 TABLET BY MOUTH EVERY 4 TO 6 HOURS NEEDED active Not Available Not Available No t Available methocarbam ol 750 mg tablet TAKE 1 TABLET BY MOUTH EVERY 8 HOURS NEEDED FOR MODERATE PAIN active Not Available Not Available No t Available lidocaine 5 % topical patch APPLY 1 PATCH TOPICALLY DAILY FOR 30 DAYS LEAVE ON MOST PAINFUL AREA FOR UP TO 12 HRS active Not Available Not Available No t Available gabapentin 300 mg capsule TAKE 2 CAPSULES (600 MG TOTAL) BY MOUTH AT BEDTIME NEEDED FOR PAIN. active Not Available Not Available No t Available budesonide 0.5 mg/2 mL suspension for nebulizatio n INHALE 1 VIAL VIA NEBULIZER TWICE A DAY active Not Available Not Available No t Available folic acid 1 mg tablet TAKE 1 TABLET ORALLY DAILY FOR 90 DAYS active Not Available Not Available No t Available ibuprofen 600 mg tablet TAKE 1 TABLET BY MOUTH EVERY 6 TO 8 HOURS NEEDED active Not Available Not Available No t Available albuterol sulfate HFA 90 mcg/actuati on aerosol inhaler INHALE 2 PUFF ORALLY EVERY 6 HOURS NEEDED FOR SHORTNESS OF BREATH OR WHEEZING active Not Available Not Available No t Available oxycodone 5 mg tablet TAKE 1 TABLET BY MOUTH EVERY 6 HOURS NEEDED FOR PAIN FOR 10 DAYS active Not Available Not Available No t Available chlorhexidi ne gluconate 0.12 % mouthwash RINSE MOUTH WITH 15ML (1 CAPFUL) FOR 30 SECONDS IN MORNING AND EVENING AFTER BRUSHING, THEN SPIT active Not Available Not Available No t Available budesonide- formoterol HFA 160 mcg-4.5 mcg/actuati on aerosol inhaler INHALE 2 PUFFS ORALLY 2 TIMES A DAY 08/19 completed Not Available Not Available Not Available lubiproston e 8 mcg capsule TAKE 2 CAPS BY MOUTH TWICE DAILY active Not Available Not Available No t Available Creon 36,000 unit-114,00 0 unit-180,00 0 unit capsule,del ayed release TAKE 1 CAPSULE BY MOUTH FOUR TIMES A DAY TAKE WITH MEALS AND/OR SNACKS active Not Available Not Available No t Available Vitals Date Recorded Body height Body mass index (BMI) Body weight Provider Name and Address Organization Details Last Updated DateTime 08/19/2024 157.48 cm 37.7 kg/m2 66106.03 g Mary Ramires MD [address] [place] [address],[address] [place] [address], [place], [address] 08/19/2024 16:15:43 Social History None recorded. Functional Status None recorded. Mental Status None recorded. Family History Relationship Description Onset Age of this Age Resolved Age Notes LastModified by Organization Details LastModified Time Daughter Hyperthyroid ism [email or web address] Not available 2024 17:24:34 Father Myocardial infarction Not available 08/14 17:24:45 Mother Malignant tumor of breast [email or web address] Not available 2024 17:24:56 Medical History Condition Response Other Y Arthritis Y Constipation Y Reflux/GERD Y Liver Disease Y Fibromyalgia Y Headaches Y Obstructive Sleep Apnea Y Asthma Y Gynecological HistoryNo gynecological history recorded. Obstetrics History GPAL:G 0 P 0 0 0 0 Past Encounters Encounter ID Performer Location Encounter Start Date Encounter Closed Date Diagnosis/Indication Diagnosis SNOMED-CT Code Diagnosis ICD10 Code Diagnosis Note [id number] Mary Ramires MD [address] [address] 08/19/2024 15:54:20 08/22/2024 04:00:00 Steatotic liver disease 143546652 K76.0 Obstructiv e sleep apnea syndrome 99044054 G47.33 Asthma-chr onic obstructive pulmonary disease overlap syndrome 9254970241 4874278 J44.89 Gastroesop hageal reflux disease 808175285 K21.9 Obese class III 00872035 5 E66.813 History of bariatric surgical procedure 118736836 Z98.84 Rheumatoid arteritis 399 684675 M05.20 Sarcoidosis 33458947 D86 .9 Connective tissue disease overlap syndrome 273221577 M35.1 Vitamin D deficiency 347 77505 E55.9 Cobalamin deficiency 190 040206 E53.8 Health Concerns Section Related Observation LastModified by Organization Detai ls LastModified Time None Recorded Concern Status LastModified by Organization Details LastModified Time None Recorded Advance Directives Directive None Recorded Payers Insurance Date Sequence Insurance Name Policy Number Policy Fitzgerald Covered Member ID Fitzgerald Member ID Guarantor Name 09/09/2024 [facility] [id number] B [facility] [id number] [facility] Notes Date Note Type Note Provider Name and Address Organization Details Recorded Time 5 text/htm l I have confirmed that the [facility]medicine service rendered via a real-time interactive audio and video communications system---54 yr old Female with class 3 Obesity s/p lap-band 2013, sleeve gastrectomy 2019, RA, Sarcoid, MCTD, COPD, Asthma, ÁNGELA, GERD, MASLD, Constipation, Diarrhea, Migraines, Vitamin B12 and D deficiency presents for evaluation.Referred By [facility]: Dr Royce Videst: 5'2 Weight: 206Highest weight/BMI: 350.0 lbs, BMI 64.0, 2014Baseline weight/BMI: 210.0 lbs, BMI 38.4Lowest adult weight/BMI: 150.0 lbs, BMI 27.4, 2012Last weight/BMI: 210.0 lbs, BMI 38.4Total weight loss (Highest - Last): -140.0 lbs / -40%Total weight loss (Baseline - Last): 0.0 lbs / 0.0%WEIGHT HISTORYhigh wt 350 lbs --> lap-band --> esophageal issueslost to 289 lbs --> converted to sleeve per rec of automobile drivers --> to current wtcan't lose furtherPCP Rx glp --> not coveredperi-menopause Weight gain coincided with: Medical conditionsCurrent lifestyle factors: Stressful, Sedentary, Work from homeMotivation for weight loss: Improve health, Specific health reason, Increase mobility, Recommended by a health professionalChallenges: Always regain lost weightPrevious diets:Previous anti-obesity medications: nonePrevious bariatric surgeries/procedures/devices : as aboveProcedure:Year:High weight before:Low weight after:DIETARY RECALL -- inflammatory dietBreakfast: 2 boiled eggs, apple, cantaloupe, orange, protein shakeLunch: chicken with salad, potatoDinner: protein with veg, beanSnacks: yogurtBeverages: water, coconut water, no juice/soda/etohEATING BEHAVIORHistory of Eating Disorder: NoBinge Eating: NeverExcessive Appetite: NeverGrazing: SometimesCravings: SometimesTrigger for Overeating: Yes - AnxietyPercentage of Daily Calories consumed after dinnertime:26-50%Eating window:Biggest Meal of the day: LunchWeekly Restaurant/Take out Meals:Dietary Strategies that are appealing: Anti inflammatory dietFood sensitivities/restrictions:F oods/Drinks consumed regularly: None of the aboveMiddle of the night eating:PHYSICAL ACTIVITYAverage daily steps: UnknownActivity Level: Sedentary (e.g., desk job, no structured activity) Walks, Pilates, DanceSLEEPHours of sleep per night: 4-5OSA Dx: YesIs it adequately treated?:Snoring:Witnessed Apnea:Treating sleep apnea adequately: YesDaytime Sleepiness:Medications to help with sleep:STOP-BANG score:Insomnia: YesPSYCHDepression: NoAnxiety: NoOther psych diagnoses:Current treatment:Provider(s):PAST MEDICAL/SURGICAL HISTORYas aboveSurgeries: [id number] gastrectomyRML resection, RUL wedge (benign tumor)hysterectomy Denies history of pancreatitis, personal/fhx MTC/MEN2, nephrolithiasis, seizures, glaucomaSOCIAL HISTORYOccupation: Therapeutic mentorMarital Status: MarriedChildren: 3Alcohol: NoNicotine/Tobacco: NoRecreational drugs: NoHistory of drug abuse/addiction: Quit smoker 20 yrs agoFAMILY HISTORYOverweight/Obesity: GktV2PY, prediabetes, insulin resistance, PCOS: YesMEN2 or MTC: NoMEDICATIONSMedications: reconciledSupplements: D3, B12, folic acid, magnesiumALLERGIESReconciled LABS/IMAGING 05/26/24CBC, CMP wnlTSH 3.9CRP 0.67TC 193, TG 107, HDL 65, LDL 183MlS3v 5%Insulin [id number] ACUITYExtreme Mary Ramires MD [address] [place] [address],[address], [place], [address], [facility] [employer] [facility]. - [facility] 08/19/2024 17:06:58 OBGyn Episode No OBEpisode recorded.
--- OUTSIDE RECORDS SUMMARY | 2024-09-17 13:12 | XMS_ITS | Clinical Summary ---
Author Organization [address] [address] Care Team Providers Care Salt Grinder Name Role Phone Unavailable Primary Care Provider [...]
--- OUTSIDE RECORDS SUMMARY | 2024-09-17 13:12 | XMS_ITS ---
Author Name [facility] Organization Unknown History of Medication Use Medication Directions Dispensed Refills Start Date End Date Stat topiramate 25 mg tablet Start with taking 1 tablet by mouth in evening before dinner x 2 weeks, then increase to 2 tablet by mouth in the evening before dinner. 08/19/2024 active amoxicillin 500 mg capsule TAKE 1 CAPSULE BY MOUTH 4 TIMES A DAY 08/19/2024 completed budesonide-formotero l HFA 160 mcg-4.5 mcg/actuation aerosol inhaler INHALE 2 PUFFS ORALLY 2 TIMES A DAY 08/19/2024 completed fluconazole 200 mg tablet TAKE 1 TABLET BY MOUTH DAILY FOR 10 DAYS 08/19/2024 completed penicillin V potassium 500 mg tablet TAKE 1 TABLET BY MOUTH THREE TIMES A DAY FOR 10 DAYS 08/19/2024 completed prednisone 10 mg tablet TAKE 2 TABLETS BY MOUTH EVERY DAY 08/19/2024 completed topiramate 25 mg tablet active acetaminophen 500 mg tablet TAKE 1 TABLET BY MOUTH EVERY 4 TO 6 HOURS NEEDED active albuterol sulfate HFA 90 mcg/actuation aerosol inhaler INHALE 2 PUFF ORALLY EVERY 6 HOURS NEEDED FOR SHORTNESS OF BREATH OR WHEEZING active budesonide 0.5 mg/2 mL suspension for nebulization INHALE 1 VIAL VIA NEBULIZER TWICE A DAY active chlorhexidine gluconate 0.12 % mouthwash RINSE MOUTH WITH 15ML (1 CAPFUL) FOR 30 SECONDS IN MORNING AND EVENING AFTER BRUSHING, THEN SPIT active Creon 36,000 unit-114,000 unit-180,000 unit capsule,delayed release TAKE 1 CAPSULE BY MOUTH FOUR TIMES A DAY TAKE WITH MEALS AND/OR SNACKS active famotidine 40 mg tablet TAKE 1 TABLET BY MOUTH AT BEDTIME active folic acid 1 mg tablet TAKE 1 TABLET BY MOUTH EVERY DAY FOR 90 DAYS active gabapentin 300 mg capsule TAKE 2 CAPSULES (600 MG TOTAL) BY MOUTH AT BEDTIME NEEDED FOR PAIN. active ibuprofen 600 mg tablet TAKE 1 TABLET BY MOUTH EVERY 6 TO 8 HOURS NEEDED active lidocaine 5 % topical patch APPLY 1 PATCH TOPICALLY DAILY FOR 30 DAYS LEAVE ON MOST PAINFUL AREA FOR UP TO 12 HRS active lubiprostone 8 mcg capsule TAKE 2 CAPS BY MOUTH TWICE DAILY active methocarbamol 750 mg tablet TAKE 1 TABLET BY MOUTH EVERY 8 HOURS NEEDED FOR MODERATE PAIN active omeprazole 40 mg capsule,delayed release TAKE 1 CAPSULE BY MOUTH EVERY DAY active oxycodone 5 mg tablet PLEASE SEE ATTACHED FOR DETAILED DIRECTIONS active simethicone 180 mg capsule TAKE 1 CAPSULE BY MOUTH 4 TIMES A DAY AFTER MEAL FOR 30 DAYS active Allergies Allergen Reaction Severity Comment Documented Date Source Statu s LEVAQUIN [facility]ES [facility] Problems Problem Status Onset Date Problem Type Date of Resoluti on Source Asthma-chronic obstructive pulmonary disease overlap syndrome active 2024-08-[address] [facility] [facility] Gastroesophageal reflux disease active 2024-08-[address] [facility] [facility] Endocrine/metabolic screening active 2024-01-[address] [facility] [facility] Steatotic liver disease active 2024-08-[address] [facility] [facility] Sarcoidosis active 2024-08-[address] [facility] [facility] Rheumatoid arteritis active 2024-08-[address] [facility] [facility] Obese class III active 2024-08-[address] [facility] Cobalamin deficiency active 2024-08-[address] Problem[address] [facility] Connective tissue disease overlap syndrome active 2024-08-19 Problem[address] [facility] Obstructive sleep apnea syndrome active 2024-08-19 Problem[address] [facility] Vitamin D deficiency active 2024-08-19 [facility] [facility] Obesity active 2024-05-27 ProblemAct [facility] Encounters Encounter Type Encounter Reason Primary Diagnosis Location Date Ambulatory [facility] 09/09/2024 Ambulatory [facility] 08/21/2024 Ambulatory [facility] 08/19/2024 Ambulatory [facility] 08/05/2024 Ambulatory [facility] 08/05/2024 Ambulatory [facility] 07/30/2024 Ambulatory [facility] 07/09/2024 Ambulatory [facility] 07/09/2024 Ambulatory [facility] 07/06/2024 Ambulatory [facility] 07/05/2024 Ambulatory [facility] 07/04/2024 Ambulatory [facility] 06/30/2024 Ambulatory [facility] 06/29/2024 Ambulatory [facility] 06/27/2024 Ambulatory [facility] 06/24/2024 Ambulatory [facility] 06/24/2024 Ambulatory [facility] 06/03/2024 Ambulatory [facility] 05/29/2024 Ambulatory [facility] 05/29/2024 Ambulatory [facility] 05/19/2024 Ambulatory [facility] 05/16/2024 Ambulatory [facility] 05/16/2024 Ambulatory [facility] 05/08/2024 Ambulatory [facility] 05/07/2024 Ambulatory [facility] 04/30/2024 Ambulatory [facility] 04/30/2024 Care Team Organization Name Specialty Phone Email Start Date End Da te [facility] 05/21/2024 [facility] 01/17/2024 09/02/2024
--- OUTSIDE RECORDS SUMMARY | 2024-09-17 13:12 | XMS_ITS | Clinical Summary ---
Author Organization [facility] it Address [address] [place] [address] Care Team Providers Care Primary School Teacher Librarian Name Role Phone El Awan MD Primary Care Provider [phone] Surgical History Surgery Date Site/Laterality Comments SECTION PROCEDURE: HISTORICAL TUBAL LIGATION PROCEDURE: HISTORICAL TUBAL LIGATION HYSTERECTOMY PROCEDURE: HISTORICAL HYSTERECTOMY; COMMENT: for fibroids LAPAROSCOPIC GASTRIC BANDING 2005 PROCEDURE: LAP ADJUSTABLE GASTRIC BAND; COMMENT: insertion of adjustable band BELT ABDOMINOPLASTY 2009 PROCEDURE: HISTORICAL TUMMY TUCK UPPER GASTROINTESTINAL ENDOSCOPY 06/25/2018 PROCEDURE: UPPER GI ENDOSCOPY/EXAM; COMMENT: esophageal spasm, lap band, gastritis OTHER SURGICAL HISTORY 08/15/2018 PROCEDURE: IA LAPS GASTRIC RESTRICTIVE PX REMOVE DEVICE & PORT; COMMENT: removal of adjustable band BREAST BIOPSY 06/09/2010 Left PROCEDURE: BX BREAST; PERC NEEDLE CORE W/IMAG GUID; COMMENT: apocrine metaplasia OTHER SURGICAL HISTORY Right PROCEDURE: IA BRONCHOSCOPY W/TRANSBRONCHIAL LUNG BX EACH LOBE; COMMENT: RUL, RML - benign results BARIATRIC SURGERY 11/24/2018 PROCEDURE: IA LAPS GSTRC RSTRICTIV PX LONGITUDINAL GASTRECTOMY; COMMENT: Sleeve Gastrectomy UPPER GASTROINTESTINAL ENDOSCOPY 08/05/2019 PROCEDURE: IA UPPER GI ENDOSCOPY PERFORMED; COMMENT: biopsy pending [...] (BMI) of 40.0 to 44.9 in adult ([facility]/HCC V24, [facility]/HCC V28) 10/21/2018 DX:Class 3 severe obesity d ue to excess calories with serious comorbidity and body mass index (BMI) of 40.0 to 44.9 in adult ([facility]) Snoring 06/17/2018 DX:Snoring Sarcoidosis 05/04/2019 DX:Sarcoidosis Family [...] ca Breast cancer Mother's side 6 maternal rarieta lf sister Breast cancer Other niece dx [...] (1 - 2023- season) 2023 Influenza Vaccine (#1) 2024 , 11/08/2017, 12/03/2016, Additional history exists DTaP,Tdap,and Td [...] Documents on File Type Date Recorded Patient Outpatient Phlebotomist Expl anation Health Care Decision (hx) 11/18/2018 [...] (hx) 11/18/2018 AD ORELLANA DIRECTIVE Care Teams Primary School Teacher Librarian Relationship Specialty Start Date End Date El Awan MD [address] [place] [id number] PCP - General Internal Medicine 07/10/18
== END 2024-09-17 12:47 | disposition home or self-care (01) ==
LOC: HO.MAMMO 12:46
PROVIDERS: PCP Internal Medicine; Visit Provider Internal Medicine
DX: Z12.31 Encounter for screening mammogram for malignant neoplasm of breast (principal)
CPT/HCPCS: 77063; 77067

== ENCOUNTER 2024-09-29 14:54 | Outpatient (AMB) | payer BC, SELFPAY ==
[2024-09-29 14:56] VITALS: BP 135/64; PULSE 59; BMI 38.0
--- NOTE | 2024-09-29 14:56 | A.OFFVIS_ITS ---
Vital Signs 09/29/24 14:56 Height 5 ft 2 in Weight 207 lb 10.807 oz BMI 38.0 BP 135/64 Blood Pressure Location Lt brachial Position Sitting Pulse 59 Intake Visit Reasons: 8 wks f/u eval restarting creon Intake Note: Marisabel returns to in office follow up to evaluate Creon. CC: Patient continues with constipation and sometimes diarrhea. Patient has some questions regarding the Creon. Hydraulic Press Tender Required: No Accompanied by: Daughter Allergies levofloxacin Allergy (Severe, Verified 09/29/24 15:12) hives HPI HPI 8 wks f/u eval restarting creon: Details: Assessment & Plan (1) GERD (gastroesophageal reflux disease): Code(s): K21.9 - Gastro-esophageal reflux disease without esophagitis Category: Medical (2) Irritable bowel syndrome with both constipation and diarrhea: Code(s): K58.2 - Mixed irritable bowel syndrome Category: Medical Plan She continues on her Amitiza, 16 micro g twice a day, omeprazole morning and f amotidine at night. She has been having more diarrhea recently, but it seems she has been out of her creon. We will restart this prior to considering additional test or interventions. She is s/p lap band surgery, but now the weight is coming back. She wants to get on a GLP-1, but her PCP is unwilling. The wt mgmt is important because of her RA and joint problems. The [facility] wt dept does not do medical wt mgmt, so I recommend she check with [facility] and I have been told that they do medical wt mgmt. ROV 8 weeks. Medications: Changed From [id number]-ahqnpxi 36,000-114,000- 180,000 unit (Creon) administer with meals and/or snacks 1 cap PO QID 120 caps 3RF To tnmuby-udasirfu-ogajjib 36,000-114,000- 180,000 unit (Creon) administer with meals and/or snacks 1 cap PO BID 120 caps 6RF Refilled omeprazole 40 mg PO DAILY 90 caps 2RF simethicone after meals 180 mg PO QID 120 caps 3RF 30 days lubiprostone 16 mcg (2 x 8 mcg) PO BID 360 caps 1RF K58.2 - Mixed irritable bowel syndrome omeprazole 40 mg PO DAILY 90 caps 2RF uswxjl-zcfviyaq-dgorfkb 36,000-114,000- 180,000 unit (Creon) administer with meals and/or snacks 1 cap PO BID 120 caps 6RF TODAYS VISIT She continues on her Amitiza, 16 micro g twice a day, omeprazole morning and famotidine at night. She has only been taking 1 amitiza bid, so I want her to increase it. The creon resolved the diarrhea, so EPI (exocrine pancreatic insufficiency not related to pancreatitis) is likely but now we have to control the CIC end. She asks me about the Creon. Apparently she is talking to a telehealth provider about being put on Ozempic and they objected saying ?if your on Creon you must have pancreatitis. ? I let her know that this is absolutely not the case, and there is no contraindication for her to start Ozempic except of course if she does not tolerate it wants to begun. She was just started on REmicaide for her RA/sarcoid. ROV 8 weeks. [facility] Medical History Contusion of left chest wall Lung mass COVID-19 Cervical mass Intercostal neuralgia Mixed connective tissue disease Transaminitis Sarcoidosis Class 2 severe obesity with body mass index (BMI) of 35 to 39.9 with serious comorbidity Closed fracture of phalanx of right fourth toe Toe fracture, right Right foot pain Toe pain, right Hot flashes Low libido Pre-op examination Adult general medical exam Diarrhea Screening for breast cancer Cervical cancer screening Screening for colon cancer 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, unspecified long-term systemic steroid user Pleuritic chest pain Sinusitis Headache Right ankle sprain Ankle pain Chest pain RUQ pain Thyroid nodule Lymphadenopathy Bradycardia Pneumonia BRCA gene positive Chronic idiopathic constipation Post herpetic neuralgia Multinodular thyroid [id number] syndrome Lump of left thigh ÁNGELA (obstructive sleep apnea) Insomnia ILD (interstitial lung disease) Sarcoidosis Dizziness SOB (shortness of breath) Surgical History H/O colonoscopy (~11/08/22) History of removal of ovarian cyst History of lung surgery History of breast biopsy Hx of abdominoplasty History of laparoscopic adjustable gastric banding History of tubal ligation History of section History of hysterectomy History of cholecystectomy Family History Father Cardiovascular disease Mother Cardiovascular disease Hypertension Thyroid condition History of breast cancer Daughter Thyroid condition Rheumatoid arthritis Sister Thyroid condition Brother Rheumatoid arthritis Maternal Aunt History of breast cancer Maternal Aunt History of breast cancer Maternal Aunt History of breast cancer Maternal Aunt History of breast cancer Social History Housing: House Alcohol intake: current Alcohol intake frequency: holidays/special occasions only Patient Tobacco Use Status: Former Tobacco user Tobacco use type: Cigarette Years Smoked: 15 years quit about 20 years ago e-Cigarette/Vaping Use: Never Used Second Hand Smoke Exposure: Yes service: No Current occupational status: unemployed Current occupation: rt handed Cognitive needs: No Hearing needs: No Vision needs: Yes (Glasses) Review of Systems Const Denies fatigue, Denies fever(s), Denies night sweats, Denies poor appetite and Denies weight loss Eyes Details: glasses Reports requires corrective lenses ENT Reports Normal hearing present, Denies dental pain, Denies dysphagia, Denies hearing loss, Denies mouth pain, Denies odynophagia, Denies throat swelling, Denies tongue swelling and Reports other (Dentition adequate) Card Reports no additional complaints Resp Reports no additional complaints GI Details: Denies abdominal pain, Denies melena, Reports bloating, Denies hematochezia, Reports constipation, Denies GI cramping, Denies dysphagia, Denies excessive flatus, Denies early satiety, Reports heartburn, Denies diarrhea, Denies nausea, Denies odynophagia, Denies vomiting and Denies hematemesis Skin/Breast Denies pruritus, Denies lesions, Denies rash and Denies jaundice Neuro Reports Normal hearing present and Denies Abnormal speech present Endo Denies fatigue Aller/Immun Denies throat swelling and Denies tongue swelling Physical Exam Vital Signs: Last Vital Signs Pulse 59 09/29/24 14:56 BP 135/64 09/29/24 14:56 BMI result Body Mass Index 38.0 Const General: cooperative, no acute distress, well developed and well groomed Nutritional Appearance: well nourished and obese Orientation/consciousness: oriented to person, oriented to place and oriented to time Limitations: language barrier HEENT Head: Yes normocephalic and Yes atraumatic Eyes General: appearance normal, both eyes and all related structures Pupils: Equal, round and reactive pupils present Neck Neck: Yes normal visual inspection and Yes no lymphadenopathy Thyroid: Thyroid normal Resp Effort & Inspection: normal respiratory effort and able to speak in complete sentences Auscultation: clear to auscultation bilaterally Cardio Rate: regular rate Rhythm: regular rhythm Heart sounds: Normal, physiologic split S2 sound present Peripheral pulses: radial pulses present and posterior tibial pulses present GI Inspection: No distended, Yes Abdominal panniculus present and Yes obesity Palpation (GI): Soft to palpation, nontender, no guarding, not rigid and No hepatosplenomegaly present Percussion: Yes normal to percussion Auscultation: normal bowel sounds Rectal Exam - Female: deferred Skin General skin exam: no rashes or lesions noted, turgor normal, skin not dry, no jaundice, No spider nevi and no striae Rashes: no rashes Nails: normal Neuro General: oriented to person, oriented to place and oriented to time Cranial nerves: Yes Equal, round and reactive pupils present and Yes Normal hearing present Speech: No Abnormal speech present Extrem General: Yes normal to inspection, No clubbing, No cyanosis and No edema Psych Appearance: grossly normal and well kempt Mental Status: mental status grossly normal Speech and movement: Normal speech and movement present Affect: normal affect Attitude: cooperative Thought process: Normal thought process present and not confabulating Thought content: Normal thought content present Insight: Fair insight present (Psych) Judgement: Fair judgement present (Psych) Assessment & Plan Assessment & Plan (1) GERD (gastroesophageal reflux disease): Code(s): K21.9 - Gastro-esophageal reflux disease without esophagitis Category: Medical (2) Irritable bowel syndrome with both constipation and diarrhea: Code(s): K58.2 - Mixed irritable bowel syndrome Category: Medical Plan She continues on her Amitiza, 16 micro g twice a day, omeprazole morning and famotidine at night. She has only been taking 1 amitiza bid, so I want her to increase it. The creon resolved the diarrhea, so EPI (exocrine pancreatic insufficiency not related to pancreatitis) is likely but now we have to control the CIC end. She asks me about the Creon. Apparently she is talking to a telehealth provider about being put on Ozempic and they objected saying ?if your on Creon you must have pancreatitis. ? I let her know that this is absolutely not the case, and there is no contraindication for her to start Ozempic except of course if she does not tolerate it wants to begun. She was just started on REmicaide for her RA/sarcoid. ROV 8 weeks. Medications: Refilled lubiprostone 16 mcg (2 x 8 mcg) PO BID 360 caps 1RF K58.2 - Mixed irritable bowel syndrome Coding Level of Care Code Est Pt Level 3 (54708) Diagnoses GERD (gastroesophageal reflux disease) K21.9 Irritable bowel syndrome with both constipation and diarrhea K58.2
--- OUTSIDE RECORDS SUMMARY | 2024-09-29 15:45 | XMS_ITS | Encounter Summary ---
Author Organization [facility] Address [address] [place] [address] Phone Care Team Providers Care Carton Stenciler Name Role Phone Royce Wild MD Primary Care Provid er Encounter Details Date Type Department Care Team (Late st Contact Info) Description 06/05/2024 Procedure Pass [facility] EKG [address] [place] [address] Social History Tobacco Use Types Packs/Day Years Used Date Smoking Tobacco: Former Cigarettes Q uit: 2005 Smokeless Tobacco: Never Education Answer Date Recorded Are you interested in more education? Not on genaro e 01/10/2024 Are you concerned about learning? Not on file 01/10/2024 No 01/10/2024 No 01/10/2024 Digital Access Answer Date Recorded No 01/10/2024 No 01/10/2024 Reliable internet access at home? Not on file 01/10/2024 Device with a working camera? Not on file Comments Unknown Sex and Gender Information Value Date Recorded Sex Assigned at Female 01/10/2024 9:04 AM EST Legal Sex Female 9:03 AM EST Gender Identity Female 01/10/2024 9:04 AM EST Sexual Orientation Straight 01/10/2024 9: 04 AM EST documented as of this encounter Plan of Treatment Upcoming Encounters Date Type Department Care Team (Late st Contact Info) Description 06/09/2025 3:00 PM EDT Office Visit [facility] Cardio Multispecial[facility] [address] [place] [address] Caridad Smith MD [address] [place] [address] [address] [place] [address] [email or web address] documented as of this encounter Visit Diagnoses Not on filedocumented in this encounter Care Teams Carton Stenciler Relationship Specialty Start Date End Date Royce Wild MD [address] [place] [id number] PCP - General Internal Medicine 01/10/24 documented as of this encounter Additional Source Comments The information contained in this document represents components of the legal health record. It is not the complete legal health record.[facility]
--- OUTSIDE RECORDS SUMMARY | 2024-09-29 15:45 | XMS_ITS | Clinical Summary ---
Author Organization [facility] it Address [address] [place] [address] Care Team Providers Care Elevator Technician Name Role Phone El Awan MD Primary Care Provider [phone] Surgical History Surgery Date Site/Laterality Comments SECTION PROCEDURE: HISTORICAL TUBAL LIGATION PROCEDURE: HISTORICAL TUBAL LIGATION HYSTERECTOMY PROCEDURE: HISTORICAL HYSTERECTOMY; COMMENT: for fibroids LAPAROSCOPIC GASTRIC BANDING 2005 PROCEDURE: LAP ADJUSTABLE GASTRIC BAND; COMMENT: insertion of adjustable band BELT ABDOMINOPLASTY 2009 PROCEDURE: HISTORICAL TUMMY TUCK UPPER GASTROINTESTINAL ENDOSCOPY 06/25/2018 PROCEDURE: UPPER GI ENDOSCOPY/EXAM; COMMENT: esophageal spasm, lap band, gastritis OTHER SURGICAL HISTORY 08/15/2018 PROCEDURE: ND LAPS GASTRIC RESTRICTIVE PX REMOVE DEVICE & PORT; COMMENT: removal of adjustable band BREAST BIOPSY 06/09/2010 Left PROCEDURE: BX BREAST; PERC NEEDLE CORE W/IMAG GUID; COMMENT: apocrine metaplasia OTHER SURGICAL HISTORY Right PROCEDURE: ND BRONCHOSCOPY W/TRANSBRONCHIAL LUNG BX EACH LOBE; COMMENT: RUL, RML - benign results BARIATRIC SURGERY 11/24/2018 PROCEDURE: ND LAPS GSTRC RSTRICTIV PX LONGITUDINAL GASTRECTOMY; COMMENT: Sleeve Gastrectomy UPPER GASTROINTESTINAL ENDOSCOPY 08/05/2019 PROCEDURE: ND UPPER GI ENDOSCOPY PERFORMED; COMMENT: biopsy pending [...] (BMI) of 40.0 to 44.9 in adult ([facility]/HCC V24, [facility]/HCC V28) 10/21/2018 DX:Class 3 severe obesity d ue to excess calories with serious comorbidity and body mass index (BMI) of 40.0 to 44.9 in adult ([facility]) Snoring 06/17/2018 DX:Snoring Sarcoidosis 05/04/2019 DX:Sarcoidosis Family [...] 2022 COVID-19 Vaccine (1 - season) 2023 Depression Screening 03/04/2024 Influenza Vaccine (#1) 2024 9, 11/08/2017, 12/03/2016, Additional history exists DTaP,Tdap,and Td [...] Documents on File Type Date Recorded Patient Sand Buffer Expl anation Health Care Decision (hx) 11/18/2018 [...] (hx) 11/18/2018 AD ORELLANA DIRECTIVE Care Teams Elevator Technician Relationship Specialty Start Date End Date El Awan MD [address] [facility] [address] [place] [id number] PCP - General Internal Medicine 07/10/18
--- OUTSIDE RECORDS SUMMARY | 2024-09-29 15:45 | XMS_ITS | Clinical Summary ---
Author Organization [address] [address] Care Team Providers Care Sociology Adjunct Instructor Name Role Phone Unavailable Primary Care Provider [...]
--- OUTSIDE RECORDS SUMMARY | 2024-09-29 15:45 | XMS_ITS | Data Portability ---
Author Organization [email or web address]. - [facility], [email or web address] Address [address] [place] [phone] Care Team Providers Care Washcoat Wiper Name Role Phone MARANDA ROSENK Primary Care Provider Assessment Encounter Date Assessment Date Assessment LastModified by Organization Details LastModified Time 08/19/2024 08/19/2024 Obesity class 3 s/p lap-band 2013, sleeve gastrectomy 2018 -- Low glycemic diet, high protein breakfast, food order -- Food log -- RD -- Weigh at least 1-2x/week, log in [employer] dusty -- Increase exercise as tolerated - [...] topiramat e 25 mg tablet 2024 025 [facility] #[id number], [id number] [facility] , [place], [address], 08/19/2024 16:44:35 Patient TargetsNo targets recorded. Patient Instructions Encounter Date Encounter Id Patient Instructions Last Modified By Organization Details Last Modified Time 08/19/2024 [id number] Hi -- It was salvador e speaking with you! Some reminders and suggestions about what we discussed: - High protein, low carb dietary strategy. Prioritize eating whole foods, including lots of fruits and veggies - High protein breakfasts (e.g. eggs, yogurt, protein bars/shakes) - Food order: eat protein and vegetables before carbohydrates (carbs last!) - Look at the dietary handouts in the [employer] dusty for more info, including meal ideas, recipes, etc - Exercise: goal of cardio (including walking) 30 min 5 days/week, strength/resistanc e training (including using body weight) 2 days/week - Weigh yourself at least weekly, log it in the [employer] dusty (or use a connected scale) - Start topiramate 25 mg 1 tablet by mouth in evening before dinner for 2 weeks, then increase to 2 tablet by mouth in the evening before dinner. - Please call the office at [phone], option 1 to schedule your follow up appointments. Always feel free to reach out with any questions or concerns by sending a message through the [employer] patient portal or by calling our office. Mary Salazar MD [email or web address] Not available 08/19/2024 16:44:47 Reason for Referral None Reported. Problems Name Problem SNOMED Code Status Onset Date Resolution Date Notes Provider Name and Address Organization Details Recorded Time Endocrine/m etabolic screening Active 2023 Lori De La Fuente [facility]. - [facility] 4 13:51:37 Obesity 047385829 Active 2024 Jenise Hurley [facility]. - [facility] 10:02:04 Steatotic liver disease 059780100 Active 2024 Mary Ramires MD [address] [place] [address],[address], [place], [address], [facility] - [facility] 16:42:49 Obstructive sleep apnea syndrome 45431015 Active 2024 Mary Ramires MD [address] [place] [address],[address], [place], [address], [facility] - [facility] 16:42:53 Asthma-under cutter salvador obstructive pulmonary disease overlap syndrome 7288241603668 9107 Active 2024 Mary Ramires MD [address] [place] [address],[address], [place], [address], [facility] - [facility] 16:43:00 Gastroesoph ageal reflux disease 534224644 Active 2024 Mary Ramires MD [address] [place] [address],[address], [place], [address], [facility] - [facility] 16:43:03 Obese class III 132471892 Active 2024 Mary Ramires MD [address] [place] [address],[address], [place], [address], [facility] [employer] [facility]. 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 - [facility] 16:43:20 Sarcoidosis 05221119 Active 2024 Mary Ramires MD [address] [place] [address],[address], [place], [address], [email or web address] - [facility] 16:43:30 Connective tissue disease overlap syndrome 674838643 Active 2024 Mary Ramires MD [address] [place] [address],[address], [place], [address], [email or web address] - [facility] 16:43:34 Vitamin D deficiency 31449573 Active 2024 Mary Ramires MD [address] [place] [address],[address], [place], [address], [email or web address] - [facility] 16:43:39 Cobalamin deficiency 068767093 Active 2024 Mary Ramires MD [address] [place] [address],[address], [place], [address], [email or web address] - [facility] 16:43:45 Problem Notes None recorded. Procedures Surgical History Date Name Laterality Status Provider Name and Address Organization Details Recorded Time section completed [facility]. - [facility] 17:08:36 ligation of fallopian tube completed [facility]. - [facility] 17:08:42 hysterectomy completed [facility]. - [facility] 17:08:[address] of stom ach using band completed [facility]. - [facility] 17:08:59 circumferential abdominoplasty completed [facility]. - [facility] 17:09:09 esophagogastroduodenoscopy completed [facility]. - [facility] 17:09:20 biopsy of breast completed [facility]. - [facility] 17:09:49 bariatric operative procedure completed [facility]. - [facility] 17:10:02 esophagogastroduodenoscopy completed [employer] [employer] [facility]. - [facility] 5 17:10:13 Imaging Results None recorded. Procedure Notes None recorded. Medical Equipment None Reported. Allergies Allergen ID Allergen Name Allergen Category Reaction Reaction Severity Criticality Documentation Date Start Date Code Code System Note Provider Name and Address Organization Details Recorded Time 12781 Levaquin medicatio n hives Not available Not available 08/19/2024 93174 2 RxNorm Mary Ramires MD [address] [place] [address],[address] [facility], [place], [address] [place] [address] [employer] [facility]. - [facility] 5 16:09:41 Medications Name Sig Start [...] Updated DateTime 08/19/2024 157.48 cm 37.7 kg/m2 62806.03 g Mary Ramires MD [address] [place] [address],[address] [facility], [place], [address], [facility] 08/19/2024 16:15:43 Social History None recorded. Functional Status None recorded. Mental Status None recorded. Family History Relationship Description Onset Age of this Age Resolved Age Notes LastModified by Organization Details LastModified Time Daughter Hyperthyroid ism Not available 2024 17:24:34 Father Myocardial infarction [email or web address] Not available 08/14 17:24:45 Mother Malignant tumor of breast [email or web address] Not available 2024 17:24:56 Medical History Condition Response Other Y Arthritis Y Reflux/GERD Y Constipation Y Liver Disease Y Headaches Y Fibromyalgia Y Obstructive Sleep Apnea Y Asthma Y Gynecological HistoryNo gynecological history recorded. Obstetrics History GPAL:G 0 P 0 0 0 0 Past Encounters Encounter ID Performer Location Encounter Start Date Encounter Closed Date Diagnosis/Indication Diagnosis SNOMED-CT Code Diagnosis ICD10 Code Diagnosis Note [id number] Mary Ramires MD [address] [address] 08/19/2024 15:54:20 08/22/2024 04:00:00 Steatotic liver disease 826287183 K76.0 Obstructiv e sleep apnea syndrome 66020150 G47.33 Asthma-chr onic obstructive pulmonary disease overlap syndrome 7163003266 8589535 J44.89 Gastroesop hageal reflux disease 517415038 K21.9 Obese class III 33785148 5 E66.813 History of bariatric surgical procedure 116907231 Z98.84 Rheumatoid arteritis 399 959734 M05.20 Sarcoidosis 25945792 D86 .9 Connective tissue disease overlap syndrome 129160329 M35.1 Vitamin D deficiency 347 09361 E55.9 Cobalamin deficiency 190 680845 E53.8 Health Concerns Section Related Observation LastModified by Organization Detai ls LastModified Time None Recorded Concern Status LastModified by Organization Details LastModified Time None Recorded Advance Directives Directive None Recorded Payers Insurance Date Sequence Insurance Name Policy Number Policy Fitzgerald Covered Member ID Fitzgerald Member ID Guarantor Name 09/09/2024 [facility] - [facility] [id number] B Marisabel Rutherford [id number] Marisabel Rutherford OBGyn Episode No OBEpisode recorded.
== END 2024-09-29 15:37 | disposition home or self-care (01) ==
LOC: HO.HGI 14:55
PROVIDERS: PCP Internal Medicine; Visit Provider Nurse Practitioner
DX: K21.9 Gastro-esophageal reflux disease without esophagitis (principal); K58.2 Mixed irritable bowel syndrome
CPT/HCPCS: 99213

== ENCOUNTER 2024-10-06 14:50 | Outpatient (AMB) | payer BC, SELFPAY ==
[2024-10-06 14:52] VITALS: BP 136/110; PULSE 65; O2SAT 99; BMI 37.9
--- NOTE | 2024-10-06 14:52 | A.OFFVIS_ITS ---
Vital Signs 10/06/24 14:52 Height 5 ft 2 in Weight 207 lb 3.752 oz BMI 37.9 BP 136/110 H Blood Pressure Location Lt brachial Position Sitting Pulse 65 Pulse Source Pulse Oximeter Pulse Oximetry (%) 99 Oxygen Delivery Method Room Air Intake Visit Reasons: ILD Accompanied by: Self / Same As Patient Allergies levofloxacin Allergy (Severe, Verified 10/06/24 14:55) hives HPI Comments Details: The patient is a 54-year-old woman with a known history of rheumatoid arthritis previously on immunomodulators including methotrexate and Humira. Apparently back in May 05, 2018 the patient developed a tooth abscess needing antibiotics. Subsequently complicated by pneumonia. She was admitted to [facility] which was found to have ground-glass opacities bilaterally consistent with pneumonitis and also nodular densities in the right middle lobe. She was evaluated by Pulmonary at that point. If felt necessary for her to have a bronchoscopy. Apparently I do not have the details of the bronchoscopy which she may have had some bleeding therefore not leading to any biopsies. However, her cultures were all negative for infection. Subsequently after that she developed worsening nodular densities in the right upper lobe and also again the right middle lobe on repeat CT scans of the chest and therefore the patient was referred to additional hotel or motel room service supervisor and also referred to thoracic surgery. She did undergo a Navagation-guided biopsy of the consolidated lung. Was consistent with non-necrotizing granulomas which is very suspicious of sarcoidosis. The patient has other symptoms in addition to some hair loss she has had some visual loss denies any rashes she has significant arthritis and swelling of her body. The question is if this is related to sarcoid or related to her underlying connective tissue disease. At this point based on the fact that she has failed methotrexate and has significant evidence of sarcoid in addition to interstitial lung disease the patient needs to be placed on immunomodulator therapy. Therefore, I will send her CellCept. Patient also will take prednisone in the meantime. I did speak to her oracle database architect about this. She is scheduled to undergo a CT scan of chest the end of this month. Will see if the medication is helping some size some of the findings. Apparently she was started on CellCept to help her with her inflammatory autoimmune condition. However, after starting the small dose of 500 twice a day the patient started having multiple complaints including lightheadedness, nausea vomiting, memory loss and weakness. She was not started on any other medicine. Therefore the patient came in to be evaluated. She also stop the prednisone about a day ago. She started to develop significant swelling of her hands and risk. Right more than left. She does have a CT scan of the scan plan for the beginning of May. At this point the av request the patient stop the medicine. I will provide her Solu-Medrol 125 mg IM and she should restart the prednisone. I will also refer the patient to the sarcoid clinic at [facility]. Based on the fact the patient has tried and failed methotrexate and now mycophenolate I do not believe immunomodulators are good option for her. Therefore, based on the fact that she has a do a diagnosis of both sarcoidosis and rheumatoid arthritis I do believe using Remicade may be a reasonable option. I will reach out to her oracle database architect at this time. We did discuss her CT scan that she had recently demonstrating interval improvement in her areas of consolidation which is reassuring. 04/30/2022 the patient is here for a pulmonary follow-up visit. She is complaining of worsening pleuritic chest discomfort. She had been well until recently and she became sick with likely a viral syndrome. She has been coughing more. She has been concerned because now her pleuritic discomfort that typically is only on her right side now also involving her left. Denies any significant mucus production at this time. Denies any significant shortness of breath. She is scheduled to see Rheumatology sometime this week. Therefore, explained to her that be best to hold off on any steroid therapy that may interfere with the analysis that will be required. Therefore will work on pain management and also request a chest x-ray. If she has has worsening findings on the x-ray but no be reasonable to treat her more urgently. 07/02/2022 the patient is here for a pulmonary follow-up visit. She is com plaining of worsening pleuritic chest discomfort. Moderate in severity. Not any worse. Was referred to pain clinic. Last CT ches was in 01/2022 with lumg mass. She will be starting Orencia soon. Will plan to repeat CT chest after 3-4 month of therapy. Has not required any prednisone. She is confused with her diagnosis. I reassured her that based on her biopsy with non necrotizing granulomas consistent with a sarcoid like activity. Likely a manifestation of her autoimmune disease. Does not appear to be consistent with medication induced or smoldering infections. She also has difficulty sleeping. She is using Lunesta as needed. Currently helping taking care of a so she is not using it as often. 11/13/2022 the patient is here for pulmonary follow-up visit. She continues to have worsening pleuritic discomfort. Moderate to severe. The patient is very discouraged rate now. Her discomfort is primarily on the right side. She is working closely with pain management. In the meantime she did have a CT scan of the chest that I personally reviewed. It appears that the right-sided masslike density has increased in size. Again the biopsy was suggestive of a sarcoid li ke reaction. She did follow-up with Rheumatology. Appears that her blood work is consistent with rheumatoid arthritis. She was prescribed Orencia however, the patient has not been able to start the medication as of yet. The patient has been off all CellCept and also has not been on any prednisone. Explained to her that with this inflammatory process she does need a component of anti-inflammatory therapy. The patient is also having pain. At this point will provide her with analgesia to provide her with some relief. the patient will start the prednisone and subsequently hopefully start the Orencia soon in order to repeat the CT scan in 3 months time. If the patient does not respond to therapy then referral to [facility] will requested. 02/14/2023 The patient has a telehealth visit. She started developing flu like symptoms 3 days ago. She went to the ED and sent home, then she tested with ahome test and has positive for covid yesterday. Having more asthma symptoms. She had been taking Orencia for her RA and had been on prednisone 20mg. But she has been off the Orencia and also the prednisone. She will be starting Paxlovid x 5 days. We did review her CT cest, It is reassuring that her mass like density has not changed. Although, she does have a new pulmonary nodule. Appears to be in a vascular distribution and would benefit in a CT chest with IV c ontrast for the next evaluation. She continues to have pain and does respond well to the oxycodone. She also recently fractured her toe and is recovering for that as well. 07/08/2023 the patient is here for a pulmonary follow-up visit. Overall she is doing fairly well. She has been active and changing her lifestyle and exercising. She is lost some weight which is reassuring. Her breathing is stable. Her arthritis is also stable. She continues on the Orencia. She also continues on a small dose of prednisone. Seems to be tolerating well. 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 We did review her recent CT scan of the chest and also compared to the CT scan that she had back in the fall and also late summer. This was in 2022. Appears that the masslike density it slowly decreasing in size. He still spiculated still has nodular densities surrounding it. This is by on biopsied couple times and is negative for any malignant process although still a concerning the can mask. I am reassured that with the biopsies and I am reassured with the fact that has not been increasing in size. No significant lymphadenopathy that I can appreciate. The other ground-glass areas are better. Therefore will repeat the CT scan in 6 months and she will continue with current therapy. 01/09/2024 the patient is here for a pulmonary follow-up visit. She is having worsening right-sided chest discomfort. She is having to use the oxycodone more often. The amount of medication is not lasting. She continues on the Orencia. Does not seem to be as effective. She also requires prednisone for her arthritis at times. She did have repeat CT scan of the chest in December. Has not been officially read unfortunately. I did review it and compared to her previous CT scan. Does not appear to be any significant changes. The patient is wondering if there is a way to remove that area. I am concerned because she is already has had surgery in without any significant improvement. Initially the thought was that she had a sarcoid like reaction she was sent to the sarcoid Clinic although was not clear if she truly sarcoid or just a sarcomatoid reaction. Most likely related to connective tissue disease. At this point will go ahead and refer her to [facility] to have her be evaluated by the interstitial disease clinic there to see if any other potential options for her specially since she still continues to have significant discomfort. I do believe that part of the discomfort is the postthoracotomy syndrome so more surgery may result in more discomfort. The patient does have some concerns if this is cancer although he has been biopsy-proven that this is inflammatory proc ess. Does not seem to be changing significantly. 04/14/2024 the patient is here for pulmonary follow-up visit. She continues to have persistent pain in that site. It is moderate to severe. Sometimes it keeps her from falling sleep. She has been on oxycodone I did have to increase the frequency of the oxycodone because her pain was getting worse. Although I do not like to prescribe this medication is seems to be providing her some relief. In addition to that she has the prednisone prescription. She does not take it all the time only when she has a flare-up. also, when she has flare up she does develop induration send her scan primarily around the elbows. Very suspicious for rheumatoid nodules although sarcoid can also manifest in the skin. She is also continues on the Orencia. She is now establishing care in [place] because of her complexity of disease. We will be helpful to see if she can see Rheumatology also [place]. She was evaluated by Pulmonary at [facility]. They still need the pathology. She has had multiple pathologies done last time was from bronchoscopy that I performed with transbronchial biopsies just demonstrating some chronic inflammation although nondiagnostic. She did have a surgical biopsy this was done at [facility]. Will try to get the pathology reports in the specimen sent to bringing woman so they can review it. She is going to have another CT scan but this will be done at [facility]. Otherwise patient is without any other complaints 07/31/2024 the patient is here for pulmonary follow-up visit. Overall the patient is doing about the same. She had a bad fall back in June and she actually went to the ER because she hurt her left hemothorax. She did have a CT scan of the cervical neck head chest and abdomen. No significant findings except for her masslike density in the right hemithorax. This appears to be unchanged if not just a slight increase from 2023. She has been on the Orencia without any significant improvement. She recently saw Rheumatology and she is looking to start Remicade. Will plan to repeat a CAT scan 4 months after the Remicade in therapy to see how responsive it is. I do believe that the parenchymal disease that she has right now the lungs is also connected to the connective tissue disease and therefore any positive response to therapy will be evaluated and seen by decreasing the size of this masslike inflammatory density. The patient still having pain issues and she does respond well to the oxycodone and I will go ahead and send the oxycodone to the pharmacy. Will plan to follow-up after her CAT scan in 4 months. If she has any issues prior to that she will call for an earlier assessment. 10/06/2024 the patient is here for pulmonary follow-up visit. Overall she is doi ng better. She was started on Remicade and she felt significantly better quickly after starting it. But then she started noticing that her symptoms were flaring up just before the Remicade was due. She is about to change to every 8 weeks on the infusions. I did ask her to monitor closely symptoms and she should talk to rheumatology to see if she needs to continue the frequency a little closer for longer period of time. The patient did have a CT scan back in May demonstrating the masslike densities. We will plan to repeat the CAT scan again in about 3 months to see if there is any resolution or decrease in the masslike densities while being on the TNF inhibitor. She continues to have pain and continues to require oxycodone. And she also uses PRN Lunesta for sleep at a small dose. She knows not to mix those together. Today though her blood pressure was elevated 140/110. We did reach out to the PCP in order for her to have a blood pressure check in the office there as she does not have a history of high blood pressure. She does have a headache right now. She knows that if her symptoms worsen she can always go to the ER for further evaluation treatment. [facility] Medical History Contusion of left chest wall Lung mass COVID-19 Cervical mass Intercostal neuralgia Mixed connective tissue disease Transaminitis Sarcoidosis Class 2 severe obesity with body mass index (BMI) of 35 to 39.9 with serious comorbidity Closed fracture of phalanx of right fourth toe Toe fracture, right Right foot pain Toe pain, right Hot flashes Low libido Pre-op examination Adult general medical exam Diarrhea Screening for breast cancer Cervical cancer screening Screening for colon cancer 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, unspecified snf systemic steroid user Pleuritic chest pain Sinusitis Headache Right ankle sprain Ankle pain Chest pain RUQ pain Thyroid nodule Lymphadenopathy Bradycardia Pneumonia BRCA gene positive Chronic idiopathic constipation Post herpetic neuralgia Multinodular thyroid [id number] syndrome Lump of left thigh ÁNGELA (obstructive sleep apnea) Insomnia ILD (interstitial lung disease) Sarcoidosis Dizziness SOB (shortness of breath) Surgical History H/O colonoscopy (~11/08/22) History of removal of ovarian cyst History of lung surgery History of breast biopsy Hx of abdominoplasty History of laparoscopic adjustable gastric banding History of tubal ligation History of section History of hysterectomy History of cholecystectomy Family History Father Cardiovascular disease Mother Cardiovascular disease Hypertension Thyroid condition History of breast cancer Daughter Thyroid condition Rheumatoid arthritis Sister Thyroid condition Brother Rheumatoid arthritis Maternal Aunt History of breast cancer Maternal Aunt History of breast cancer Maternal Aunt History of breast cancer Maternal Aunt History of breast cancer Social History Housing: House Alcohol intake: current Alcohol intake frequency: holidays/special occasions only Patient Tobacco Use Status: Former Tobacco user Tobacco use type: Cigarette Years Smoked: 15 years quit about 20 years ago e-Cigarette/Vaping Use: Never Used Second Hand Smoke Exposure: Yes service: No Current occupational status: unemployed Current occupation: rt handed Cognitive needs: No Hearing needs: No Vision needs: Yes (Glasses) Review of Systems Const Denies chills, Reports headache(s) and Denies weight loss ENT Reports headache(s) Card Reports chest pain, Denies syncope, Denies irregular heart rhythm and Denies dyspnea Resp Denies chest congestion, Reports cough, Reports pain on inspiration, Reports pain with cough, Denies dyspnea and Reports wheezing GI Denies abdominal pain, Denies change in stool character, Denies nausea and Denies vomiting Musc Denies deformity and Denies joint swelling Neuro Denies syncope and Reports headache(s) Aller/Immun Reports wheezing Physical Exam Vital Signs: Last Vital Signs Pulse 65 10/06/24 14:52 BP 136/110 H 10/06/24 14:52 Pulse Ox 99 10/06/24 14:52 Oxygen Delivery Method Room Air 10/06/24 14:52 BMI result Body Mass Index 37.9 Const General: comfortable and alert HEENT Head: Yes normal to inspection Ears: TM abnormal with fluid behind the TM (minimal) bilateral General nose exam: Abnormal mucous membranes and turbinates present erythematous Face and sinus: Yes sinus tenderness and Yes Facial tenderness on exam of face and sinuses Throat: Yes postnasal drainage and Yes cobblestoning Neck Neck: Yes normal visual inspection, Yes full ROM and Yes no lymphadenopathy Chest Chest palpation & inspection: normal inspection of the chest Resp Effort & Inspection: normal respiratory effort Auscultation: diminished lung sounds Cardio Rate: regular rate Rhythm: regular rhythm Heart sounds: S1 normal heart sound present and S2 normal heart sound present GI Palpation (GI): Soft to palpation and nontender Auscultation: normal bowel sounds Skin General skin exam: rashes and/or lesions noted Assessment & Plan Assessment & Plan (1) ILD (interstitial lung disease): Code(s): J84.9 - Interstitial pulmonary disease, unspecified Category: Medical (2) Seropositive rheumatoid arthritis: Comment: +++RF+++CCP Onset early 2014. SSZ started 02/15 - stopped due diarrhea MTX taken briefly 2015- May 2015? MTX restarted 07/18- changed to SC Dec 2016 due to nausea Humira added 02/18 to methotrexate. Both stopped 04/22 due to infection. Humira was suspected to have caused lung issues (?drug induced sarcoid) MTX and Humira remained held 03/23 04/23: Cellcept started by pulmonary - GI side effects, confusion so it was stopped 07/21 methotrexate and Humira restarted stopped sometime in 2020 Imuran briefly, not sure what happened with that 2020 Marcie attempted got denied. Approved 07/2022, started 01/2023 effective Code(s): M05.9 - Rheumatoid arthritis with rheumatoid factor, unspecified Category: Medical (3) Sarcoidosis: Comment: Sarcoid like reaction secondary auto-immune disease versus a medication reaction while taking the TNF inhibitor 2018 lung biopsy with non caseating granulomas Code(s): D86.9 - Sarcoidosis, unspecified Category: Medical (4) Lung mass: Comment: Surgical biopsy with a combination of granulomas, organizing pneumonia and lipid aspiration Code(s): R91.8 - Other nonspecific abnormal finding of lung field Category: Medical (5) Hypertension: Code(s): I10 - Essential (primary) hypertension Category: Medical Qualifiers: Hypertension type: primary hypertension Qualified Code(s): I10 - Essential (primary) hypertension Plan Pain control: Lidoderm patch, percocet continue Remicade, ?frequesncy, seems to be having breakthrough symptoms prior to her next dose PPI reflux diet Lunesta as needed for sleep F/U with Rheumatology CT chest in January 2025 Follow-up in 3-4 months Orders: Orders CT chest wo IV con 3 Months R91.8 - Other nonspecific abnormal finding of lung field Medications: Refilled eszopiclone (Lunesta) 1 mg PO BEDTIME 90 tabs 0RF 90 days Coding Level of Care Code Est Pt Level 5 (33081) Complex EM visit Add On G2211 Diagnoses ILD (interstitial lung disease) J84.9 Seropositive rheumatoid arthritis M05.9 Sarcoidosis D86.9 Lung mass R91.8 Primary hypertension I10 Hypertension type: primary hypertension Time Spent (min) 30
--- OUTSIDE RECORDS SUMMARY | 2024-10-06 15:23 | XMS_ITS | Clinical Summary ---
Author Organization [address] Address [address] [place] [id number] Care Team Providers Care Casting House Laborer Name Role Phone Unavailable Primary Care Provider [...]
--- OUTSIDE RECORDS SUMMARY | 2024-10-06 15:23 | XMS_ITS | Clinical Summary ---
Author Organization [facility] it Address [address] [place] [address] Care Team Providers Care Photocomposing Keyboard Operator Name Role Phone El Awan MD Primary Care Provider [phone] Surgical History Surgery Date Site/Laterality Comments SECTION PROCEDURE: HISTORICAL TUBAL LIGATION PROCEDURE: HISTORICAL TUBAL LIGATION HYSTERECTOMY PROCEDURE: HISTORICAL HYSTERECTOMY; COMMENT: for fibroids LAPAROSCOPIC GASTRIC BANDING 2005 PROCEDURE: LAP ADJUSTABLE GASTRIC BAND; COMMENT: insertion of adjustable band BELT ABDOMINOPLASTY 2009 PROCEDURE: HISTORICAL TUMMY TUCK UPPER GASTROINTESTINAL ENDOSCOPY 06/25/2018 PROCEDURE: UPPER GI ENDOSCOPY/EXAM; COMMENT: esophageal spasm, lap band, gastritis OTHER SURGICAL HISTORY 08/15/2018 PROCEDURE: VT LAPS GASTRIC RESTRICTIVE PX REMOVE DEVICE & PORT; COMMENT: removal of adjustable band BREAST BIOPSY 06/09/2010 Left PROCEDURE: BX BREAST; PERC NEEDLE CORE W/IMAG GUID; COMMENT: apocrine metaplasia OTHER SURGICAL HISTORY Right PROCEDURE: VT BRONCHOSCOPY W/TRANSBRONCHIAL LUNG BX EACH LOBE; COMMENT: RUL, RML - benign results BARIATRIC SURGERY 11/24/2018 PROCEDURE: VT LAPS GSTRC RSTRICTIV PX LONGITUDINAL GASTRECTOMY; COMMENT: Sleeve Gastrectomy UPPER GASTROINTESTINAL ENDOSCOPY 08/05/2019 PROCEDURE: VT UPPER GI ENDOSCOPY PERFORMED; COMMENT: biopsy pending [...] (BMI) of 40.0 to 44.9 in adult ([facility] V24, [facility] V28) 10/21/2018 DX:Class 3 severe obesity d ue to excess calories with serious comorbidity and body mass index (BMI) of 40.0 to 44.9 in adult ([facility]) Snoring 06/17/2018 DX:Snoring Sarcoidosis 05/04/2019 [...] Documents on File Type Date Recorded 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
--- OUTSIDE RECORDS SUMMARY | 2024-10-06 15:23 | XMS_ITS | Encounter Summary ---
Author Organization [facility] Address [address] [place] [address] Phone Care Team Providers Care Editorial Intern Name Role Phone Royce Wild MD Primary Care Provid er Encounter Details Date Type Department Care Team (Late st Contact Info) Description 06/05/2024 Procedure Pass [facility] EKG [address] [place] [address] Social History Tobacco Use Types Packs/Day Years [...] Description 06/09/2025 3:00 PM EDT Office Visit [facility] Cardio Multispecialty [address] [place] [address] Caridad Smith MD [address] [place] [address] 5[address] [place] [address] [email or web address] documented as of this encounter Visit Diagnoses Not on filedocumented in this encounter Care Teams Editorial Intern Relationship Specialty Start Date End Date Royce Wild MD [address] [place] [id number] PCP - General Internal Medicine 01/10/24 documented as of this encounter Additional Source Comments The information contained in this document represents components of the legal health record. It is not the complete legal health record.[facility]
== END 2024-10-06 15:21 | disposition home or self-care (01) ==
LOC: HO.HPS 14:51
PROVIDERS: PCP Internal Medicine; Visit Provider Hospitalist
DX: J84.9 Interstitial pulmonary disease, unspecified (principal); M05.9 Rheumatoid arthritis with rheumatoid factor, unspecified; D86.9 Sarcoidosis, unspecified; R91.8 Other nonspecific abnormal finding of lung field; I10 Essential (primary) hypertension
CPT/HCPCS: 99214

== ENCOUNTER 2024-10-08 13:02 | Outpatient (REF) | payer BC, SELFPAY ==
--- NOTE | ~2024-10-08 | US_ITS ---
EXAMINATION: MM DIAGNOSTIC DIGITAL BREAST TOMOSYNTHESIS, RIGHT Limited right breast ultrasound. CLINICAL INFORMATION: Call back from screening for circumscribed oval mass lower outer breast middle to posterior depth and focal asymmetry central to upper outer breast middle to posterior depth. COMPARISON: Mammography: Priors on PACS. TECHNIQUE: Digital breast tomosynthesis is performed in both the craniocaudal and mediolateral oblique views along with computer-aided detection (CAD). Synthesized 2D images are generated from the tomosynthesis. FINDINGS: There are scattered areas of fibroglandular density (ACR BI-RADS breast composition Category b). Focal asymmetry central to upper outer breast partially effaces and is similar-appearing to mammograms dating back to 2019. There is a circumscribed oval mass in the lower central lower outer breast middle to posterior depth. No suspicious calcifications or other abnormal findings. Targeted color Doppler ultrasound demonstrates an isoechoic oval parallel circumscribed solid mass at 8:00 6 cm from the nipple measuring 7 x 11 x 5 mm. This correlates with the circumscribed oval mass in the lower outer breast. Targeted color Doppler ultrasound and 9:00 10 cm from nipple demonstrates normal follicular breast tissue. There is incidental hypoechoic oval minimally complicated cysts versus solid mass at 9:00 10 cm from the nipple measuring 5 x 2 x 3 mm. US/US breast RT limited mamm only IMPRESSION: 1. Hypoechoic oval solid mass at 8:00 6 cm from the nipple. Recommend 6 month follow-up ultrasound for further evaluation of stability. 2. Incidental Solid mass versus complicated cyst at 9:00 10 cm from the nipple. Recommend 6 month follow-up ultrasound for further evaluation of stability. ASSESSMENT: BI-RADS BI-RADS 3 - Probably benign finding(s) - 6 month follow-up suggested RECOMMENDATION: 6 Month F/U Results were provided to the patient at time of visit by the technologist. This patient's information was entered into a reminder system with a target due date for their next mammogram. Electronically signed by: Joslyn Mcdermott DO 10/08/2024 01:58 PM EDT
--- OUTSIDE RECORDS SUMMARY | 2024-10-08 13:07 | XMS_ITS | Clinical Summary ---
Author Organization [employer] [facility] it Address [address] [place] [address] Care Team Providers Care Pawn Shop Keeper Name Role Phone El Awan MD Primary Care Provider [phone] Surgical History Surgery Date Site/Laterality Comments SECTION PROCEDURE: HISTORICAL TUBAL LIGATION PROCEDURE: HISTORICAL TUBAL LIGATION HYSTERECTOMY PROCEDURE: HISTORICAL HYSTERECTOMY; COMMENT: for fibroids LAPAROSCOPIC GASTRIC BANDING 2005 PROCEDURE: LAP ADJUSTABLE GASTRIC BAND; COMMENT: insertion of adjustable band BELT ABDOMINOPLASTY 2009 PROCEDURE: HISTORICAL TUMMY TUCK UPPER GASTROINTESTINAL ENDOSCOPY 06/25/2018 PROCEDURE: UPPER GI ENDOSCOPY/EXAM; COMMENT: esophageal spasm, lap band, gastritis OTHER SURGICAL HISTORY 08/15/2018 PROCEDURE: [place] LAPS GASTRIC RESTRICTIVE PX REMOVE DEVICE & PORT; COMMENT: removal of adjustable band BREAST BIOPSY 06/09/2010 Left PROCEDURE: BX BREAST; PERC NEEDLE CORE W/IMAG GUID; COMMENT: apocrine metaplasia OTHER SURGICAL HISTORY Right PROCEDURE: [place] BRONCHOSCOPY W/TRANSBRONCHIAL LUNG BX EACH LOBE; COMMENT: RUL, RML - benign results BARIATRIC SURGERY 11/24/2018 PROCEDURE: WA LAPS GSTRC RSTRICTIV PX LONGITUDINAL GASTRECTOMY; COMMENT: Sleeve Gastrectomy UPPER GASTROINTESTINAL ENDOSCOPY 08/05/2019 PROCEDURE: [place] UPPER GI ENDOSCOPY PERFORMED; COMMENT: biopsy pending [...] (BMI) of 40.0 to 44.9 in adult ([facility]/HCC V24, [facility]/HCC V28) 10/21/2018 DX:Class 3 severe obesity d ue to excess calories with serious comorbidity and body mass index (BMI) of 40.0 to 44.9 in adult ([facility]) Snoring 06/17/2018 DX:Snoring Sarcoidosis 05/04/2019 [...] Documents on File 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
--- OUTSIDE RECORDS SUMMARY | 2024-10-08 13:07 | XMS_ITS | Clinical Summary ---
Author Organization [address] [address] Care Team Providers Care Cold Type Artist Name Role Phone Unavailable Primary Care Provider [...]
--- OUTSIDE RECORDS SUMMARY | 2024-10-08 13:07 | XMS_ITS | Encounter Summary ---
Author Organization [facility] Address [address] [place] [address] Phone Care Team Providers Care Tattooer Name Role Phone Royce Wild MD Primary Care Provid er Encounter Details Date Type Department Care Team (Late st Contact Info) Description 06/05/2024 Procedure Pass [facility] EKG [address] [place] [address] Social History Tobacco Use Types Packs/Day Years [...] Description 06/09/2025 3:00 PM EDT Office Visit [facility] Multispecialty [address] [place] [address] Caridad Smith MD [address] [place] [address] [address] [place] [address] [email or web address] documented as of this encounter Visit Diagnoses Not on filedocumented in this encounter Care Teams Tattooer Relationship Specialty Start Date End Date Royce Wild MD [address] [place] [id number] PCP - General Internal Medicine 01/10/24 documented as of this encounter Additional Source Comments The information contained in this document represents components of the legal health record. It is not the complete legal health record.[facility]
== END 2024-10-08 13:03 | disposition home or self-care (01) ==
LOC: HO.MAMMO 13:02
PROVIDERS: PCP Internal Medicine; Visit Provider Internal Medicine
DX: N63.11 Unspecified lump in the right breast, upper outer quadrant (principal); N63.13 Unspecified lump in the right breast, lower outer quadrant; R92.8 Other abnormal and inconclusive findings on diagnostic imaging of breast; Z12.31 Encounter for screening mammogram for malignant neoplasm of breast
CPT/HCPCS: 76642; 77061; 77065

== ENCOUNTER → 2024-10-08 13:30 | Outpatient (BNV) | payer BC, SELFPAY | PROVIDERS: PCP Internal Medicine; Visit Provider Internal Medicine | DX: N63.13 Unspecified lump in the right breast, lower outer quadrant (principal) | CPT/HCPCS: 76642; 77061; 77065 ==

== ENCOUNTER 2024-10-09 08:22 | Outpatient (AMB) | payer BC, SELFPAY ==
--- OUTSIDE RECORDS SUMMARY | 2024-10-09 08:33 | XMS_ITS | Encounter Summary ---
Author Organization [facility] Address [address] [place] [address] Phone Care Team Providers Care Boner Meat Name Role Phone Royce Wild MD Primary Care Provid er Encounter Details Date Type Department Care Team (Late st Contact Info) Description 06/05/2024 Procedure Pass [facility] EKG [address] [place] [address] Social History Tobacco Use Types Packs/Day Years [...] Description 06/09/2025 3:00 PM EDT Office Visit [facility] Cardio Multispec[facility] [address] [place] [address] Caridad Smith MD [address] [place] [address] [address] [place] [address] [email or web address] documented as of this encounter Visit Diagnoses Not on filedocumented in this encounter Care Teams Boner Meat Relationship Specialty Start Date End Date Royce Wild MD [address] [place] [phone] PCP - General Internal Medicine 01/10/24 documented as of this encounter Additional Source Comments The information contained in this document represents components of the legal health record. It is not the complete legal health record.[facility]
--- OUTSIDE RECORDS SUMMARY | 2024-10-09 08:33 | XMS_ITS | Clinical Summary ---
Author Organization [employer] [facility] it Address [address] [place] [address] Care Team Providers Care Equipment Driver Name Role Phone El Awan MD Primary Care Provider [phone] Surgical History Surgery Date Site/Laterality Comments SECTION PROCEDURE: HISTORICAL TUBAL LIGATION PROCEDURE: HISTORICAL TUBAL LIGATION HYSTERECTOMY PROCEDURE: HISTORICAL HYSTERECTOMY; COMMENT: for fibroids LAPAROSCOPIC GASTRIC BANDING 2005 PROCEDURE: LAP ADJUSTABLE GASTRIC BAND; COMMENT: insertion of adjustable band BELT ABDOMINOPLASTY 2009 PROCEDURE: HISTORICAL TUMMY TUCK UPPER GASTROINTESTINAL ENDOSCOPY 06/25/2018 PROCEDURE: UPPER GI ENDOSCOPY/EXAM; COMMENT: esophageal spasm, lap band, gastritis OTHER SURGICAL HISTORY 08/15/2018 PROCEDURE: [place] LAPS GASTRIC RESTRICTIVE PX REMOVE DEVICE & PORT; COMMENT: removal of adjustable band BREAST BIOPSY 06/09/2010 Left PROCEDURE: BX BREAST; PERC NEEDLE CORE W/IMAG GUID; COMMENT: apocrine metaplasia OTHER SURGICAL HISTORY Right PROCEDURE: [place] BRONCHOSCOPY W/TRANSBRONCHIAL LUNG BX EACH LOBE; COMMENT: RUL, RML - benign results BARIATRIC SURGERY 11/24/2018 PROCEDURE: [place] LAPS GSTRC RSTRICTIV PX LONGITUDINAL GASTRECTOMY; COMMENT: Sleeve Gastrectomy UPPER GASTROINTESTINAL ENDOSCOPY 08/05/2019 PROCEDURE: [place] UPPER GI ENDOSCOPY PERFORMED; COMMENT: biopsy pending [...] (BMI) of 40.0 to 44.9 in adult ([facility]/HCC V24, [facility]/HCC V28) 10/21/2018 DX:Class 3 severe obesity d ue to excess calories with serious comorbidity and body mass index (BMI) of 40.0 to 44.9 in adult ([facility]) Snoring 06/17/2018 DX:Snoring Sarcoidosis 05/04/2019 DX:Sarcoidosis [...] Documents on File Type Date Recorded 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
--- OUTSIDE RECORDS SUMMARY | 2024-10-09 08:33 | XMS_ITS | Clinical Summary ---
Author Organization [address] [address] Care Team Providers Care Bait Maker Name Role Phone Unavailable Primary Care [...]
--- NOTE | 2024-10-09 08:35 | A.OFFVIS_ITS ---
Vital Signs 10/09/24 08:40 Height 5 ft 2 in Weight 208 lb 12.444 oz BMI 38.2 BP 140/80 H Blood Pressure Location Lt brachial Position Sitting Pulse 59 Pulse Source Pulse Oximeter Pulse Oximetry (%) 99 Oxygen Delivery Method Room Air Intake Visit Reasons: RA Intake Note: Patient presents for RA follow up. Allergies levofloxacin Allergy (Severe, Verified 10/09/24 08:39) hives Medication List - Last Reconciled 10/09/24 by Ping Mcallister MD albuterol sulfate 90 mcg/actuation 2 puffs PO Q6H PRN albuterol sulfate 2.5 mg (3 mL) inhalation Q6H PRN biotin 5 mg PO DAILY budesonide 0.5 mg (2 mL) inhalation BID budesonide-formoterol 160-4.5 mcg/actuation 2 puffs PO BID cholecalciferol (vitamin D3) 125 mcg PO DAILY duloxetine 30 mg PO DAILY 30 days eszopiclone (Lunesta) 1 mg PO BEDTIME 90 days famotidine 40 mg PO BEDTIME folic acid 1 mg PO DAILY 90 days gabapentin 600 mg (2 x 300 mg) PO BEDTIME PRN 30 days lidocaine 5% (Lidoderm) 1 patch topical DAILY 30 days [id number]-[id number] 36,000-114,000- 180,000 unit (Creon) 1 cap PO BID lisinopril 10 mg PO DAILY lubiprostone 16 mcg (2 x 8 mcg) PO BID meclizine 25 mg PO TID-QID mecobalamin (vitamin B12) 1,000 mcg sublingual DAILY methocarbamol 750 mg PO Q8H PRN nebulizers As directed omeprazole 40 mg PO DAILY oxycodone 5 mg PO Q6H PRN 10 days prednisone 20 mg (2 x 10 mg) PO DAILY simethicone 180 mg PO QID 30 days topiramate mg PO HPI Comments Details: Patient is a 54-year-old female with asthma, GERD, IBS with constipation and diarrhea, seropositive rheumatoid arthritis and sarcoidosis complicated by ILD here today for follow up Interval History: Patient last seen 06/18/24 with me - On Orencia 125mg SC weekly - This managed her sx but continued to have breakthrough joint pain/flares at least once per month and these last for on average 2-3 days at a time. These flares would be manifested with swelling of her hands and tenderness to the joints and increase it to stiffness. Follows with pulmonology for her lung issues, her last visit was 10/[address] Briggs. - Doing well with pulm sx but reported increased sx close to the due date of the Remicade - No changes made to medications - Ordered CT scan for 01/2025 Today, - On Remicade infusions 3mg/kg every 8 weeks - Did well with the induction period but notes that prior to the 8 weeks she notes that she gets flares with pain in her toes, fingers, prolonged AM stiffness, bilateral hip pain - Also noted that she has had increased blood pressure and increased headache since starting the infusion - Increasingly forgetful Rheumatologic History: Patient initially diagnosed with rheumatoid arthritis 2014 +++RF+++CCP Onset early 2014. SSZ started 02/15 - stopped due diarrhea MTX taken briefly 2015- May 2015? MTX restarted 07/18- changed to SC Dec 2016 due to nausea Humira added 02/18 to methotrexate. Both stopped 04/22 due to infection. Humira was suspected to have caused lung issues (?drug induced sarcoid) MTX and Humira remained held 03/23 04/23: Cellcept started by pulmonary for ILD/sarcoidosis - GI side effects, confusion so it was stopped 07/21 methotrexate and Humira restarted stopped sometime in 2020 Imuran briefly, not sure what happened with that 2020 Marcie attempted got denied. Approved 07/2022, started 01/2023 effective ILD vs Sarcoidosis In 2018 she had in navigation bronchoscopy with biopsy which showed some fin dings suspicious for sarcoidcosis. She had another wedge resection biopsy which showed organizing pneumonia, non necrotizing granulomas. She had a cardiac PET scan ordered by Dr. Briggs after a cardiac event in 2020 which did not show features of cardiac sarcoidosis. She was evaluated by Dr. Ricks in [place] and the overall assessment was she does not have classic sarcoidosis. Despite this she is currently being followed by Pulmonary for sarcoid/ILD Current Rheumatology Medication(s): Remicade infusions 3mg/kg every 8 weeks Prednisone varying doses daily [facility] Medical History Contusion of left chest wall Lung mass COVID-19 Cervical mass Intercostal neuralgia Mixed connective tissue disease Transaminitis Sarcoidosis Class 2 severe obesity with body mass index (BMI) of 35 to 39.9 with serious comorbidity Closed fracture of phalanx of right fourth toe Toe fracture, right Right foot pain Toe pain, right Hot flashes Low libido Pre-op examination Adult general medical exam Diarrhea Screening for breast cancer Cervical cancer screening Screening for colon cancer 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, unspecified 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 Pleuritic chest pain Sinusitis Headache Right ankle sprain Ankle pain Chest pain RUQ pain Thyroid nodule Lymphadenopathy Bradycardia Pneumonia BRCA gene positive Chronic idiopathic constipation Post herpetic neuralgia Multinodular thyroid [id number] syndrome Lump of left thigh ÁNGELA (obstructive sleep apnea) Insomnia ILD (interstitial lung disease) Sarcoidosis Dizziness SOB (shortness of breath) Surgical History H/O colonoscopy (~11/08/22) History of removal of ovarian cyst History of lung surgery History of breast biopsy Hx of abdominoplasty History of laparoscopic adjustable gastric banding History of tubal ligation History of section History of hysterectomy History of cholecystectomy Family History Father Cardiovascular disease Mother Cardiovascular disease Hypertension Thyroid condition History of breast cancer Daughter Thyroid condition Rheumatoid arthritis Sister Thyroid condition Brother Rheumatoid arthritis Maternal Aunt History of breast cancer Maternal Aunt History of breast cancer Maternal Aunt History of breast cancer Maternal Aunt History of breast cancer Social History Housing: House Alcohol intake: current Alcohol intake frequency: holidays/special occasions only Patient Tobacco Use Status: Former Tobacco user Tobacco use type: Cigarette Years Smoked: 15 years quit about 20 years ago e-Cigarette/Vaping Use: Never Used Second Hand Smoke Exposure: Yes service: No Current occupational status: unemployed Current occupation: rt handed Cognitive needs: No Hearing needs: No Vision needs: Yes (Glasses) Review of Systems Const Details: Review of Systems Constitutional: Denies fever, chills, weight loss ENT: Denies vision changes, eye pain or eye redness, dental caries, dry mouth GI: Denies nausea, vomiting, diarrhea, abdominal pain, change in BM Pulm: Denies SOB, DUQUE, hemoptysis, wheezing Cards: Denies chest pain, palpitations Skin: Denies Raynaud's, rash, nail changes, photosensitivity, 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 Well appearing and in no apparent painful distress HEENT Conjunctiva and sclera clear. No lymphadenopathy. CHEST/RESPIRATORY SYSTEM Normal respiratory effort and able to speak in complete sentences. Clear to auscultation bilaterally. No crackles, rales, rhonchi, wheezes heard. CARDIAC SYSTEM Regular rate and rhythm. S1 and S2 heard no murmurs. Radial pulses intact bilaterally MSK Hands * Right Hand: Able to make a fist. No swelling but tenderness to palpation of the MCPs * Left Hand: Able to make a fist. No swelling but tenderness to palpation of the MCPs Wrists * Right Wrist: Full ROM. 70 degrees of wrist flexion, 80 degrees of wrist extension. No swelling but tender to palpation * Left Wrist: Full ROM. 70 degrees of wrist flexion, 80 degrees of wrist extension. No swelling but tender to palpation Elbows * Right Elbow: Full ROM. No swelling or TTP. No TTP of the medial and lateral epicondyles * Left Elbow: Full ROM. No swelling or TTP. No TTP of the medial and lateral epicondyles Shoulders * Right shoulder: Full ROM. No swelling noted. No TTP of the AC joint, subacromial bursa or posterior shoulder * Left shoulder: Full ROM. No swelling noted. No TTP of the AC joint, subacromial bursa or posterior shoulder Knees * Right knee: Full ROM. No swelling noted. No TTP of the knee joint lie or pes anserine bursa * Left knee: Full ROM. No swelling noted. No TTP of the knee joint lie or pes anserine bursa. * Crepitations felt bilaterally Ankles * Right ankle: Good ankle dorsiflexion and plantar flexion. No swelling. No TTP of the ankle joint * Left ankle: Good ankle dorsiflexion and plantar flexion. No swelling. No TTP of the ankle joint Feet * Right foot: Negative squeeze test * Left foot: Negative squeeze test Tender points? * No tenderness to palpation of the bilateral trapezius, supraspinatus, anterior costochondral junctions, bilateral suboccipital muscle insertions SKIN No rashes Vital Signs: Last Vital Signs Pulse 59 08/08/25 08:40 BP 140/80 H 10/09/24 08:40 Pulse Ox 99 10/09/24 08:40 Oxygen Delivery Method Room Air 10/09/24 08:40 BMI result Body Mass Index 38.2 Results Reviewed Results Reviewed: Laboratory Tests 06/19/24 10/09/24 15:25 09:19 MCHC 34.4 RDW 12.6 Plt Count 244 ESR 13 Sodium 141 Potassium 4.5 D Chloride 105 Carbon Dioxide 29 BUN 15 Creatinine 0.66 AST 30 ALT 23 C-Reactive Protein < 0.10 Angiotensin Convert Enz 21 Immunology labs and infectious serologies 06/19/24 06/19/24 15:25 15:29 IgG Total 1353 IgA Total 142 IgM 131 Complement C3 133 Complement C4 18 Hepatitis A IgM Ab Pending Hep Bs Antigen Negative Hep Bs Antibody NONREACTIVE Hep B Core Total Ab Nonreactive Hepatitis C Ab (EIA) Nonreactive TB Test (T-Spot) Com Negative CT Chest 06/2024 FINDINGS: GIS SCIENTIST: Low lung volume involving mostly the right lung. Cardiomediastinal silhouette size is normal. Patient's large body habitus. Vascular clips right upper quadrant abdomen and likely cholecystectomy. S-shaped curvature of the thoracic spine. LUNGS: Sutures extending from the right pulmonary hilum to the peripheral anterior right upper and mid hemithorax. There is a 38 x 26 x 31 mm spiculated soft tissue attenuation extending from the peribronchial septal to the interlobular/intralobular septa of the peripheral right lung. Subtle patchy pulmonary groundglass, right lung. No bronchiectasis. No honeycombing. MEDIASTINUM: Prominent lymph nodes, the largest measures 12 mm in the right pretracheal/mainstem bronchus. No aneurysm or dissection, thoracic aorta. No pericardial effusion. The vessels are patent. PLEURA: No pleural effusion. No pneumothorax. AXILLA: Nonspecific prominent lymph nodes. UPPER ABDOMEN: Postsurgical changes within the gastroesophageal junction and stomach. Status post cholecystectomy. Decreased enhancement pattern of the liver. Small hiatal hernia. OSSEOUS STRUCTURES: Mild to moderate multilevel thoracic spondylosis and lower cervical spondylosis without acute fracture or gross listhesis. No lytic or blastic lesions. The ribs are intact. Scapula is intact bilaterally. Heterogeneous nodular thyroid gland with subcentimeter nodules, right thyroid lobe. IMPRESSION: Post surgical/treatment changes with stable to slightly smaller soft tissue attenuation along the surgical site. Stable right pretracheal lymph node. Assessment & Plan Assessment & Plan (1) Seropositive rheumatoid arthritis: Comment: +++RF+++CCP Onset early 2014. SSZ started 02/15 - stopped due diarrhea MTX taken briefly 2015- May 2015? MTX restarted 07/18- changed to SC Dec 2016 due to nausea Humira added 02/18 to methotrexate. Both stopped 04/22 due to infection. Humira was suspected to have caused lung issues (?drug induced sarcoid) MTX and Humira remained held 03/23 04/23: Cellcept started by pulmonary - GI side effects, confusion so it was stopped 07/21 methotrexate and Humira restarted stopped sometime in 2020 Imuran briefly, not sure what happened with that 2020 Carolinaia attempted got denied. Approved 07/2022, started 01/2023 effective Code(s): M05.9 - Rheumatoid arthritis with rheumatoid factor, unspecified Category: Medical Plan: #Seropositive RA Patient is a 54-year-old female with seropositive rheumatoid arthritis here today for follow up. Patient has a lot of tender joints on examination today despite her last infusion being 2 weeks ago She does note that she gets waning of effect close to the time that it is due. She was initially started on 3 milligram/kilogram every 8 weeks based on insurance but I think I want to go back to my original regimen of 5 milligrams/kilogram every 4 weeks Note is made of her increased blood pressure which can happen on infliximab. Recommended that patient monitor her blood pressure at home and if she has consistent blood pressure elevations greater than 140 over 80 she should start the lisinopril given to her by her primary Plan - Infliximab infusions 5mg/kg. Induction dose at 0, 2 and 6 weeks followed by maintenance every 4 weeks - Add leflunomide 10mg to prevent antibody generation - RTC 4 months - Labs before visit: CBC, CMP, ESR, CRP, MARLY level (2) Sarcoidosis: Comment: Sarcoid like reaction secondary auto-immune disease versus a medication reaction while taking the TNF inhibitor 2018 lung biopsy with non caseating granulomas Code(s): D86.9 - Sarcoidosis, unspecified Category: Medical Plan: #Sarcoidosis Patient with lung biopsy showing noncaseating granulomas without any other extra pulmonary evidence of sarcoid. No cardiac sarcoid or any skin changes at this time. Given the concern for potential sarcoidosis, I think the next treatment in the management of her rheumatoid arthritis should be a treatment that encompasses both sarcoid and rheumatoid arthritis which is infliximab. She is also complaining of increasing forgetfulness at this visit. Given her history of sarcoidosis there are cases of neurosarcoid and so she would benefit from having an MRI. CT Head normal (3) Encounter for monitoring of infliximab therapy: Code(s): Z51.81 - Encounter for therapeutic drug level monitoring; Z79.620 - buttermaker continuous churn ( current) use of immunosuppressive biologic Plan: #Long-term Use of TNF Inhibitors: Infliximab Discussed with the patient the benefits and risks of TNF inhibitors for the management of the rheumatic condition Benefits include reduce pain, maintenance of remission and reduction of flares as well as progression of the disease Risks include injection sites/infusion reactions, serious infections (such as bacterial infections, opportunistic infections), malignancy, delaminating syndromes, autoimmune phenomena, CHF exacerbations, palmar plantar psoriasis and cytopenias Recommended holding medication during and for up to 1 week after resolution of a febrile illness or open skin wound Plan I spent 35 minutes reviewing the record and labs, taking a history, examining the patient, discussing the treatment plan, ordering diagnostic work up and documenting in the medical record Orders: Orders Erythrocyte Sedimentation Rate Today G45.9 - Transient cerebral ischemic brenden ck, unspecified, Z79.60 - buttermaker continuous churn (current) use of unspecified immunomodulators and immunosuppressants C Reactive Protein Today G45.9 - Transient cerebral ischemic attack, unspecified, Z79.60 - buttermaker continuous churn (current) use of unspecified immunomodulators and immunosuppressants Complete Blood Count Auto Diff 4 Months D86.9 - Sarcoidosis, unspecified C Reactive Protein 4 Months D86.9 - Sarcoidosis, unspecified Angiotensin Converting Enzyme 4 Months D86.9 - Sarcoidosis, unspecified Complete Blood Count Auto Diff Today G45.9 - Transient cerebral ischemic attack, unspecified, Z79.60 - [facility] (current) use of unspecified immunomodulators and immunosuppressants Comprehensive Buckner. Panel Fast Today G45.9 - Transient cerebral ischemic attack, unspecified, Z79.60 - buttermaker continuous churn (current) use of unspecified immunomodulators and immunosuppressants Comprehensive Met. Panel 4 Months D86.9 - Sarcoidosis, unspecified Erythrocyte Sedimentation Rate 4 Months D86.9 - Sarcoidosis, unspecified MR head/brain w con Today D86.89 - Sarcoidosis of other sites Referrals Infusion Center Notification D86.9 - Sarcoidosis, unspecified, M05.9 - Rheumatoid arthritis with rheumatoid factor, unspecified Medications: Discontinued prednisone Discontinued Reason: Patient no longer taking 20 mg (2 x 10 mg) PO DAILY 60 tabs 5RF Coding Level of Care Code Est Pt Level 4 (16167) Complex EM visit Add On G2211 Diagnoses Seropositive rheumatoid arthritis M05.9 Sarcoidosis D86.9 Encounter for monitoring of infliximab therapy Z51.81; Z79.839
[2024-10-09 08:40] VITALS: BP 140/80; PULSE 59; O2SAT 99; BMI 38.2
== END 2024-10-09 09:12 | disposition home or self-care (01) ==
LOC: HO.RHES 08:23
PROVIDERS: PCP Internal Medicine; Visit Provider Student in an Organized Health Care Education/Training Program
DX: M05.9 Rheumatoid arthritis with rheumatoid factor, unspecified (principal); D86.9 Sarcoidosis, unspecified; Z51.81 Encounter for therapeutic drug level monitoring; Z79.620 Long term (current) use of immunosuppressive biologic
CPT/HCPCS: 99214

== ENCOUNTER 2024-10-09 08:22 | Outpatient (REF) | payer BC, SELFPAY ==
[2024-10-09 13:30] LABS: MANUAL DIFF FLAG NO
[2024-10-09 13:45] LABS: Alanine Aminotransferase 23 U/L (0-31); Albumin Level 4.2 g/dL (3.5-5.0); Alkaline Phosphatase 114 U/L (39-117); Anion Gap 12 (12-20); Aspartate Amino Transferase 30 U/L (5-31); Blood Urea Nitrogen 15 mg/dL (9-16); Calcium 8.9 mg/dL (8.4-10.2); Carbon Dioxide 29 mmol/L (22-29); Chloride 105 mmol/L (96-108); Estimated Glomerular Filt Rate > 60; Potassium 4.5 mmol/L (3.3-5.1); Sodium 141 mmol/L (135-145); Total Protein 7.3 g/dL (6.5-8.0)
[2024-10-09 13:46] LABS: Hematocrit 38.9 % (37.0-47.0); Hemoglobin 13.4 g/dl (12.0-16.0); Imm Gran Abs Auto 0.01 X10*3/uL (0.00-0.03); Imm Gran Pct Auto 0.2 % (0.0-0.4); Lymphocytes Absolute Auto 2.4 X10*3/uL (1.2-4.9); Mean Corpuscular HGB Conc 34.4 g/dl (31.0-35.0); Mean Corpuscular Hemoglobin 30.7 pg (27.0-33.0); Mean Corpuscular Volume 89.0 fL (80.0-98.0); NRBC Abs Auto 0.000 X10*3/uL (0.0-0.012); NRBC Pct Auto 0.0 /100WBC (0.0-0.2); Platelet Count 244 X10*3/uL (160-400); Red Blood Count 4.37 X10*6/uL (4.20-5.50); White Blood Count 6.0 X10*3/uL (4.8-10.8)
== END 2024-10-09 08:23 | disposition home or self-care (01) ==
LOC: HO.HKASLDS 08:22
PROVIDERS: PCP Internal Medicine; Visit Provider Student in an Organized Health Care Education/Training Program
DX: G45.9 Transient cerebral ischemic attack, unspecified (principal); M05.9 Rheumatoid arthritis with rheumatoid factor, unspecified; D86.9 Sarcoidosis, unspecified; Z51.81 Encounter for therapeutic drug level monitoring; Z79.620 Long term (current) use of immunosuppressive biologic; Z79.60 Long term (current) use of unspecified immunomodulators and immunosuppressants
CPT/HCPCS: 36415; 80053; 85025; 85652; 86140

== ENCOUNTER 2024-10-26 12:53 | Outpatient (REF) | payer BC, SELFPAY ==
--- NOTE | ~2024-10-26 | MR_ITS ---
EXAMINATION: MR BRAIN WITHOUT AND WITH CONTRAST CLINICAL INFORMATION: Headaches, sarcoidosis of other sites. COMPARISON: No prior MRI. Correlation made with CT abdomen the head 06/28/2024 and 12/07/2021. TECHNIQUE: Multiplanar, multisequence MRI of the brain was obtained before and after the intravenous administration of 10 mL Gadavist. Examination performed on a 1.5 Claire Siemens high-field unit. FINDINGS: There is no diffusion restriction. There is no intracranial hemorrhage, acute infarction, mass effect, or edema. No extra-axial collection. Ventricles, sulci, and cisterns are normal in size and configuration for patient age. No shift of midline. No abnormal hemosiderin deposition is identified. There are no white matter signal abnormalities of significance. There is a prominent perivascular space in the left basal ganglia. After the administration of contrast, there is no abnormal intra or extra-axial enhancement. Midline structures appear normally formed. The pituitary gland appears normal. Posterior fossa structures appear normal. Cerebellar tonsils are appropriately located. Major flow voids are preserved within the skull base. The globes and orbital contents demonstrate no abnormalities. Paranasal sinuses are clear bilaterally. The mastoids and tympanic cavities are normally aerated. Extracranial soft tissues demonstrate no abnormalities. No suspicious bone marrow changes are evident. Atlantoaxial joint is normal. MR/MR head/brain wo/w con IMPRESSION: 1. No evidence of intracranial hemorrhage, acute infarction, mass effect, edema, or abnormal contrast enhancement. Essentially normal examination. Electronically signed by: Kwasi Pradhan MD 10/26/2024 02:14 PM EDT
--- OUTSIDE RECORDS SUMMARY | 2024-10-26 14:04 | XMS_ITS | Encounter Summary ---
Author Organization [facility] Address [address] [place] [address] Phone Care Team Providers Care Seed Service Advisor Name Role Phone Royce Wild MD Primary Care Provid er Encounter Details Date Type Department Care Team (Late st Contact Info) Description 06/05/2024 Procedure Pass [facility] EKG [address] [place] [address] Social History Tobacco Use Types Packs/Day Years [...] Description 06/09/2025 3:00 PM EDT Office Visit [facility] [address] [place] [address] Caridad Smith MD [address] [place] [address] [address] [place] [address] [email or web address] documented as of this encounter Visit Diagnoses Not on filedocumented in this encounter Care Teams Seed Service Advisor Relationship Specialty Start Date End Date Royce Wild MD [address] [place] [id number] PCP - General Internal Medicine 01/10/24 documented as of this encounter Additional Source Comments The information contained in this document represents components of the legal health record. It is not the complete legal health record.[facility]
--- OUTSIDE RECORDS SUMMARY | 2024-10-26 14:05 | XMS_ITS | Clinical Summary ---
Author Organization [facility] it Address [address] [place] [address] Care Team Providers Care Student Ministries Director Name Role Phone El Awan MD Primary Care Provider [phone] Surgical History Surgery Date Site/Laterality Comments SECTION PROCEDURE: HISTORICAL TUBAL LIGATION PROCEDURE: HISTORICAL TUBAL LIGATION HYSTERECTOMY PROCEDURE: HISTORICAL HYSTERECTOMY; COMMENT: for fibroids LAPAROSCOPIC GASTRIC BANDING 2005 PROCEDURE: LAP ADJUSTABLE GASTRIC BAND; COMMENT: insertion of adjustable band BELT ABDOMINOPLASTY 2009 PROCEDURE: HISTORICAL TUMMY TUCK UPPER GASTROINTESTINAL ENDOSCOPY 06/25/2018 PROCEDURE: UPPER GI ENDOSCOPY/EXAM; COMMENT: esophageal spasm, lap band, gastritis OTHER SURGICAL HISTORY 08/15/2018 PROCEDURE: KY LAPS GASTRIC RESTRICTIVE PX REMOVE DEVICE & PORT; COMMENT: removal of adjustable band BREAST BIOPSY 06/09/2010 Left PROCEDURE: BX BREAST; PERC NEEDLE CORE W/IMAG GUID; COMMENT: apocrine metaplasia OTHER SURGICAL HISTORY Right PROCEDURE: KY BRONCHOSCOPY W/TRANSBRONCHIAL LUNG BX EACH LOBE; COMMENT: RUL, RML - benign results BARIATRIC SURGERY 11/24/2018 PROCEDURE: KY LAPS GSTRC RSTRICTIV PX LONGITUDINAL GASTRECTOMY; COMMENT: Sleeve Gastrectomy UPPER GASTROINTESTINAL ENDOSCOPY 08/05/2019 PROCEDURE: KY UPPER GI ENDOSCOPY PERFORMED; COMMENT: biopsy pending [...] (BMI) of 40.0 to 44.9 in adult ([facility]/HCC V24, [facility]/HCC V28) 10/21/2018 DX:Class 3 severe obesity d ue to excess calories with serious comorbidity and body mass index (BMI) of 40.0 to 44.9 in adult ([facility]) Snoring 06/17/2018 DX:Snoring Sarcoidosis 05/04/2019 [...] cancer risk category Moderate (15% - 20%) Charlse Merino MD IMG XR PROCEDURES Final Result from Last 3 Months or Most Recently Relevant to Health Maintenance Advance Directives Documents on File Type Date Recorded 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
--- OUTSIDE RECORDS SUMMARY | 2024-10-26 14:05 | XMS_ITS | Clinical Summary ---
Author Organization [address] Address [address] [place] [place] [id number] Care Team Providers Care Die Holder Name Role Phone Unavailable Primary Care Provider [...] Dose Standard Series) 2022 Covid-19 vaccine series ( - season) 2023 Influenza vaccine 11/02/2024 RSV Immunization (1 - 1-dose 75+ series) 05/25/2047 Meningococcal B Vaccine Aged Out No l onger eligible based on patient's age to complete this topic Meningococcal Vaccine Aged Out No lyssa merna eligible based on patient's age to complete this topic
== END 2024-10-26 12:54 | disposition home or self-care (01) ==
LOC: HO.MRI 12:53
PROVIDERS: PCP Internal Medicine; Visit Provider Student in an Organized Health Care Education/Training Program
DX: D86.89 Sarcoidosis of other sites (principal); R51.9 Headache, unspecified
CPT/HCPCS: 70553; A9585

== ENCOUNTER → 2024-10-26 13:07 | Outpatient (BNV) | payer BC, SELFPAY | PROVIDERS: PCP Internal Medicine; Visit Provider Radiology Diagnostic Radiology | DX: R51.9 Headache, unspecified (principal) | CPT/HCPCS: 70553 ==

== ENCOUNTER 2024-11-05 10:00 | Outpatient (AMB) | payer BC, SELFPAY ==
--- NOTE | 2024-11-05 10:08 | A.OFFPC_ITS ---
Vital Signs 11/05/24 10:12 Weight 210 lb BP 128/78 Position Sitting Pulse 87 Pulse Oximetry (%) 98 Oxygen Delivery Method Room Air Intake Visit Reasons: annual exam/ bakari Dr Cadet Clinical Research Specialist Required: No Accompanied by: Self / Same As Patient Allergies levofloxacin Allergy (Severe, Verified 11/05/24 10:33) hives Medication List - Last Reconciled 11/05/24 by Vira Michele PA-C albuterol sulfate 90 mcg/actuation 2 puffs PO Q6H PRN albuterol sulfate 2.5 mg (3 mL) inhalation Q6H PRN [Blood pressure monitor As directed] budesonide 0.5 mg (2 mL) inhalation BID budesonide-formoterol 160-4.5 mcg/actuation 2 puffs PO BID cholecalciferol (vitamin D3) 125 mcg PO DAILY duloxetine 30 mg PO DAILY 30 days eszopiclone (Lunesta) 1 mg PO BEDTIME 90 days famotidine 40 mg PO BEDTIME folic acid 1 mg PO DAILY 90 days gabapentin 600 mg (2 x 300 mg) PO BEDTIME PRN 30 days lidocaine 5% (Lidoderm) 1 patch topical DAILY 30 days xiivkf-yfydrnhv-tpdwihu 36,000-114,000- 180,000 unit (Creon) 1 cap PO BID lisinopril 10 mg PO DAILY lubiprostone 16 mcg (2 x 8 mcg) PO BID meclizine 25 mg PO TID-QID mecobalamin (vitamin B12) 1,000 mcg sublingual DAILY methocarbamol 750 mg PO Q8H PRN nebulizers As directed omeprazole 40 mg PO DAILY oxycodone 5 mg PO Q6H PRN 10 days simethicone 180 mg PO QID 30 days topiramate mg PO Tobacco use date assessed: 11/05/24 Dental Screening Dental Screen Date: 11/05/24 Did you have a dental visit in the last 12 months?: No Did you have a dental problem in the last 6 months where you did not have access to dental care?: No Was dental information given to patient?: Patient has dentist HPI annual exam/ bakari Dr Cadet HPI Details 54-year-old female with past medical his tory of rheumatoid arthritis, interstitial lung disease, insomnia, obstructive sleep apnea, vertigo, fibromyalgia, IBS, GERD and hypertension last seen 07/2024 by nurse practitioner coming in for transfer of care/annual exam. In review of the notes, patient was seen by Rheumatology 10/2024 started on infliximab and added leflunomide and ordered for blood work. Seen by pulmonology 10/2024 for interstitial lung disease advised to continue on PPI continue to follow with Rheumatology. Seen by GI 09/2024 continue on current medication regimen and follow up in 8 weeks. Presenting for an annual wellness visit and management of chronic conditions. The patient reports fluctuating blood pressure levels, with recent stability noted. She is currently on a low dose of lisinopril. Headaches have been frequent, potentially linked to medication or other factors. The patient has been managing rheumatoid arthritis with Remicade infusions. She reports headaches potentially related to the infusions. The patient has a history of prednisone use, which has impacted her weight. The patient has sleep apnea but does not use a CPAP machine. She experiences insomnia, for which she takes Lunesta, though it provides limited relief. The patient has a history of sarcoidosis affecting her lungs, requiring ongoing monitoring and management. The patient has a history of thyroid nodules, with family history of thyroid issues but no malignancy. The patient has struggled with weight management, exacerbated by rheumatoid arthritis and medication side effects. She follows an anti-inflammatory diet and has considered medication for weight loss. 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 Colonoscopy: 2022 repeat in 3 years [facility] Medical History Contusion of left chest wall Lung mass COVID-19 Cervical mass Intercostal neuralgia Mixed connective tissue disease Transaminitis Sarcoidosis Class 2 severe obesity with body mass index (BMI) of 35 to 39.9 with serious comorbidity Closed fracture of phalanx of right fourth toe Toe fracture, right Right foot pain Toe pain, right Hot flashes Low libido Pre-op examination Adult general medical exam Diarrhea Screening for breast cancer Cervical cancer screening Screening for colon cancer 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, unspecified medical terminologist systemic steroid user Pleuritic chest pain Sinusitis Headache Right ankle sprain Ankle pain Chest pain RUQ pain Thyroid nodule Lymphadenopathy Bradycardia Pneumonia BRCA gene positive Chronic idiopathic constipation Post herpetic neuralgia Multinodular thyroid [id number] syndrome Lump of left thigh ÁNGELA (obstructive sleep apnea) Insomnia ILD (interstitial lung disease) Sarcoidosis Dizziness SOB (shortness of breath) Surgical History H/O colonoscopy (~11/08/22) History of removal of ovarian cyst History of lung surgery History of breast biopsy Hx of abdominoplasty History of laparoscopic adjustable gastric banding History of tubal ligation History of section History of hysterectomy History of cholecystectomy Family History Father Cardiovascular disease Mother Cardiovascular disease Hypertension Thyroid condition History of breast cancer Daughter Thyroid condition Rheumatoid arthritis Sister Thyroid condition Brother Rheumatoid arthritis Maternal Aunt History of breast cancer Maternal Aunt History of breast cancer Maternal Aunt History of breast cancer Maternal Aunt History of breast cancer Social History Housing: House Alcohol intake: current Alcohol intake frequency: holidays/special occasions only Patient Tobacco Use Status: Former Tobacco user Tobacco use type: Cigarette Years Smoked: 15 years quit about 20 years ago e-Cigarette/Vaping Use: Never Used Second Hand Smoke Exposure: Yes service: No Current occupational status: unemployed Current occupation: rt handed Cognitive needs: No Hearing needs: No Vision needs: Yes (Glasses) Questionnaire PHQ-9 Over the last 2 weeks, how often have you been bothered by any of the following problems? 1. Little interest or pleasure in doing things: not at all 2. Feeling down, depressed, or hopeless: not at all 3. Trouble falling or staying asleep, or sleeping too much: nearly every day 4. Feeling tired or having little energy: not at all 5. Poor appetite or overeating: not at all 6. Feeling bad about yourself - or that you are a failure or have let yourself or your family down: not at all 7. Trouble concentrating on things, such as reading the newspaper or watching television: not at all 8. Moving or speaking so slowly that other people could have noticed. Or the opposite - being so fidgety or restless that you have been moving around a lot more than usual: not at all 9. Thoughts that you would be better off or of hurting yourself in some way: not at all Total score: 3 Depression Screening Interpretation: Negative Depression Screening Done: Yes 40975 - PHQ-9 Billing: Yes Source: Developed by Drs. Terence Diaz, Jani Nelson and colleagues, with an educational ashley from [employer]. Thrive Questionnaire Date Thrive assessed: 07/09/24 I am a: Patient What is your living situation today?: I have a steady place to live Within the past 12 months, did the food you bought not last and you didn't have the money to get more?: Never true Within the past 12 months, did you worry whether your food would run out before you got money to buy more?: Never true Do you have trouble paying for medicines?: No Do you have trouble getting transportation to medical appointments?: No Do you have trouble paying your heating and electricity bill?: No Do you have trouble taking care of your child, family member or friend?: No Do you have trouble with day-to-day activities such as bathing, preparing meals, shopping, managing finances, etc.?: I choose not to answer this question Are you currently unemployed and looking for a job?: I choose not to answer this question Are you interested in more education?: Yes Please select the resources that you would like help with: None THRIVE Score: 0 AUDIT C Alcohol Use Questionnaire (AUDIT-C) 1. How often do you have a drink containing alcohol?: Never 3. How often do you have six or more drinks on one occasion?: Less than monthly Total Score: 1 YENNI-7 AMB Questionnaire YENNI-7 Date YENNI - 7 assessed: 07/10/24 Feeling nervous, anxious, or on edge: 0 = Not at all Not being able to stop or control worryin = Not at all Worrying too much about different things: 0 = Not at all Trouble relaxin = Not at all Being so restless that it is hard to sit still: 0 = Not at all Becoming easily annoyed or irritable: 0 = Not at all Feeling afraid as if something awful might happen: 0 = Not at all Total YENNI-7 score (0-4 normal; 5-9 mild; 10-14 moderate; 15-21 severe): 0 Source: Developed by Leila Ruiz Kurt Kroenke and colleagues, with an educational ashley from [employer]. YENNI-7 Assessment Billing YENNI-7 Assessment Tool: YENNI-7 Assessment 94118 Review of Systems Const Denies body aches, Denies fatigue, Denies fever(s), Denies frequent falls, Denies headache(s) and Denies weakness Eyes Reports no additional complaints, Denies change in vision and Reports requires corrective lenses ENT Denies dysphagia, Denies dizziness, Denies facial pain, Denies headache(s), Denies nasal congestion and Denies odynophagia Card Denies chest pain, Denies syncope, Denies irregular heart rhythm, Denies leg edema, Denies lightheadedness, Denies dyspnea and Denies dyspnea on exertion Resp Denies cough, Denies dyspnea and Denies dyspnea on exertion GI Denies abdominal pain, Reports constipation, Denies dysphagia, Denies dyspepsia, Denies diarrhea, Denies nausea, Denies odynophagia and Denies vomiting Denies urinary frequency, Denies dysuria, Denies urinary hesitancy and Denies urinary urgency Musc Denies back pain and Denies myalgias Skin/Breast Reports system reviewed and no additional complaints, except as documented Neuro Denies dizziness, Denies syncope, Denies frequent falls, Denies headache(s) and Denies weakness Psych Reports no additional complaints Endo Denies fatigue Physical exam (Primary Care) Vital Signs: Last Vital Signs Pulse 87 11/05/24 10:12 BP 128/78 11/05/24 10:12 Pulse Ox 98 11/05/24 10:12 Oxygen Delivery Method Room Air 11/05/24 10:12 Tobacco/Smoking Status: Tobacco use Status Tobacco use date assessed 11/05/24 11/05/24 10:20 Patient Tobacco Use Status Former Tobacco user 11/05/24 10:20 Tobacco use type Cigarette 11/05/24 10:20 e-Cigarette/Vaping Use Never Used 11/05/24 10:20 PHQ-9: PHQ-9 Score PHQ-9: Total score 3 11/05/24 10:38 Depression Screening Interpretation: Negative Thrive Assessment: Date of Thrive Assessment Date Thrive assessed 07/09/24 11/05/24 10:20 Const General: cooperative, healthy appearing, comfortable and no acute distress Orientation/consciousness: patient oriented x3 HENMT Head: Yes normocephalic Ears: hearing grossly normal bilaterally, external ears normal, TM's normal bilaterally and EAC's normal General nose exam: Normal external nose present Face and sinus: Yes normal facial exam and Yes sinuses nontender Mouth: Normal oral and palatal mucosa present and tongue normal Throat: Yes posterior oropharynx normal Eyes General: appearance normal, both eyes and all related structures Conjunctivae: conjunctivae normal Pupils: Equal, round and reactive pupils present EOM: EOMs intact bilaterally and No Nystagmus present Neck Neck: Yes normal visual inspection, Yes full ROM and Yes no lymphadenopathy Chest Chest palpation & inspection: normal inspection of the chest Resp Effort & Inspection: normal respiratory effort Auscultation: clear to auscultation bilaterally, no crackles, no rales, no rhonchi, no wheezes and breath sounds present Cardio Rate: regular rate Rhythm: regular rhythm Peripheral pulses: radial pulses present and dorsalis pedis present GI Inspection: Yes normal to inspection and No Abdominal wall edema Palpation (GI): Soft to palpation, not firm and nontender Auscultation: normal bowel sounds Rectal Exam - Female: deferred General: Yes no CVA tenderness Back/Spine/Pelvis Back: no CVA tenderness Skin General skin exam: no rashes or lesions noted Neuro General: patient oriented x3 Cranial nerves: Yes Equal, round and reactive pupils present, Yes Midline tongue present, Yes Ability to bilaterally elevate shoulders present and No Nystagmus present Gait exam (Neuro): Normal gait present Extrem General: Yes normal to inspection, Yes full ROM, No no pedal edema and No edema Psych Speech and movement: Normal speech and movement present Affect: normal affect Insight: Good insight present (Psych) Judgement: Good judgement present (Psych) Coding Level of Care Code Est Pt Prev Care 40-64y(60375) Diagnoses Annual physical exam Z00.00 Primary hypertension I10 Hypertension type: primary hypertension Class 2 severe obesity with body mass index (BMI) of 35 to 39.9 with serious comorbidity E66.01 GERD (gastroesophageal reflux disease) K21.9 Irritable bowel syndrome with both constipation and diarrhea K58.2 Tubular adenoma of colon D12.6 Seropositive rheumatoid arthritis M05.9 Sarcoidosis D86.9 ILD (interstitial lung disease) J84.9 Primary insomnia F51.01 Insomnia type: primary ÁNGELA (obstructive sleep apnea) G47.33 Additional Codes YENNI-7 Assessment Billing - YENNI-7 Assessment Tool: YENNI-7 Assessment 98712 ([id number]) PHQ-9 - 03710 - PHQ-9 Billing: Yes ([id number]) Assessment & Plan Assessment & Plan (1) Annual physical exam: Code(s): Z00.00 - Encounter for general adult medical examination without abnormal findings Category: Medical Plan: Patient is up-to-date on all recommended routine screenings and vaccinations for her age. Blood work is up-to-date and has been reviewed with the patient today she is due for cholesterol panel as well as vitamins which was ordered. Healthy diet and regular exercise is encouraged. (2) Hypertension: Code(s): I10 - Essential (primary) hypertension Category: Medical Qualifiers: Hypertension type: primary hypertension Qualified Code(s): I10 - Essential (primary) hypertension Plan: Continue on current blood pressure medication. Avoid salt intake and encourage healthy diet and regular exercise. (3) Class 2 severe obesity with body mass index (BMI) of 35 to 39.9 with serious comorbidity: Code(s): E66.01 - Morbid (severe) obesity due to excess calories Category: Medical Plan: Healthy diet and regular exercise is encouraged. Patient was counseled today on the risks and benefits of GLP-1 injections as well as the dosing schedule. She has no family history or personal history of thyroid disease and no gallbladder disease. Discussed with the patient the potential GI side effects of this medication. Plan to have repeat blood work after one month of therapy to monitor kidney and liver function before increasing the dose of this medication. Follow up in 2 months for a weight check. (4) GERD (gastroesophageal reflux disease): Code(s): K21.9 - Gastro-esophageal reflux disease without esophagitis Category: Medical Plan: Avoid trigger foods such as citrus, tomato products, soda, caffeine, spicy foods and other foods that may be irritating to your stomach. Avoid laying flat 3-4 hours after eating and elevate the head of the bed 30 degrees to prevent acid from moving into the esophagus. Continue on PPI (5) Irritable bowel syndrome with both constipation and diarrhea: Code(s): K58.2 - Mixed irritable bowel syndrome Category: Medical Plan: Continue to follow up with GI and continue on current medication regimen. (6) Tubular adenoma of colon: Comment: 2022=Large TA's repeat 3 years Code(s): D12.6 - Benign neoplasm of colon, unspecified Category: Medical Plan: Continue to follow up with GI. (7) Seropositive rheumatoid arthritis: Comment: +++RF+++CCP Onset early 2014. SSZ started 02/15 - stopped due diarrhea MTX taken briefly 2015- May 2015? MTX restarted 07/18- changed to SC Dec 2016 due to nausea Humira added 02/18 to methotrexate. Both stopped 04/22 due to infection. Humira was suspected to have caused lung issues (?drug induced sarcoid) MTX and Humira remained held 03/23 04/23: Cellcept started by pulmonary - GI side effects, confusion so it was stopped 07/21 methotrexate and Humira restarted stopped sometime in 2020 Imuran briefly, not sure what happened with that 2020 Orencia attempted got denied. Approved 07/2022, started 01/2023 effective Code(s): M05.9 - Rheumatoid arthritis with rheumatoid factor, unspecified Category: Medical Plan: The patient is receiving Remicade infusions for rheumatoid arthritis. Headaches have been reported, possibly related to the infusions. Monitoring for side e ffects and ongoing management with the german professor are recommended. (8) Sarcoidosis: Comment: Sarcoid like reaction secondary auto-immune disease versus a medication reaction while taking the TNF inhibitor 2018 lung biopsy with non caseating granulomas Code(s): D86.9 - Sarcoidosis, unspecified Category: Medical Plan: The patient has a history of sarcoidosis affecting the lungs, requiring ongoing monitoring and management. No acute issues were reported during the visit. (9) ILD (interstitial lung disease): Code(s): J84.9 - Interstitial pulmonary disease, unspecified Category: Medical Plan: Continue to follow with [facility] Pulmonology and continue on current medication regimen. She will also have repeat CT scan under their care. (10) Insomnia: Code(s): G47.00 - Insomnia, unspecified Category: Medical Qualifiers: Insomnia type: primary Qualified Code(s): F51.01 - Primary insomnia Plan: Currently using Lunesta 1mg and question increase but she will speak with her prescriber first. (11) ÁNGELA (obstructive sleep apnea): Code(s): G47.33 - Obstructive sleep apnea (adult) (pediatric) Category: Medical Plan: Not currently using CPAP. Continue to follow up with pulmonology. She would benefit from weight loss Plan During the visit, we discussed the management of the patient's chronic conditions, including hypertension, rheumatoid arthritis, and sleep apnea. We reviewed the potential side effects of current medications and the possibility of adjusting dosages. The patient was informed about the importance of ongoing monitoring and follow-up with specialists, including rheumatology and pulmonology. We also discussed preventative care measures, such as scheduling a mammogram and colonoscopy, and maintaining up-to-date vaccinations. The patient was advised to continue her current diet and exercise regimen and to consider medication options for weight management after consulting with her healthcare providers. This note was constructed using voice recognition software. While every effort has been made to ensure accuracy and pharmacy benefit manager, still areas may have been included sometimes these areas may affect the content or meeting of the given symptoms. Total time spent caring for the patient today was 30 minutes. This includes time spent before the visit reviewing the chart, time spent during the visit, and time spent after the visit and documentation. Patient was informed and verbally consented to the use of an ambient scribe for clinic note documentation during this visit. Orders: Orders TSH reflex Free T4 Today Z13.29 - Encounter for screening for other suspected endocrine disorder Lipid Panel Today E66.01 - Morbid (severe) obesity due to excess calories, I10 - Essential (primary) hypertension Vitamin B12 and Folate Today Z13.21 - Encounter for screening for nutritional disorder Vitamin D 25-OH Total Today Z13.21 - Encounter for screening for nutritional disorder Medications: New semaglutide (weight loss) (Wegovkendra) administer weeks 1 through 4 of therapy 0.25 mg (0.5 mL) subcut QWEEK 2 mL 0RF E66.01 - Morbid (severe) obesity due to excess calories, G47.33 - Obstructive sleep apnea (adult) (pediatric), M79.7 - Fibromyalgia
[2024-11-05 10:12] VITALS: BP 128/78; PULSE 87; O2SAT 98
== END 2024-11-05 10:59 | disposition home or self-care (01) ==
LOC: HO.HMCH 10:01
DX: Z00.00 Encounter for general adult medical examination without abnormal findings (principal); E66.01 Morbid (severe) obesity due to excess calories; J84.9 Interstitial pulmonary disease, unspecified; M05.9 Rheumatoid arthritis with rheumatoid factor, unspecified; I10 Essential (primary) hypertension; K21.9 Gastro-esophageal reflux disease without esophagitis; K58.2 Mixed irritable bowel syndrome; D12.6 Benign neoplasm of colon, unspecified; D86.9 Sarcoidosis, unspecified; F51.01 Primary insomnia; G47.33 Obstructive sleep apnea (adult) (pediatric)

== ENCOUNTER 2024-11-05 10:00 | Outpatient (REF) | payer BC, SELFPAY ==
[2024-11-05 12:39] LABS: Cholesterol 217 mg/dL (<200); HDL Cholesterol 58 mg/dL (>40); Triglycerides 96 mg/dL (<150)
--- OUTSIDE RECORDS SUMMARY | 2024-11-05 12:48 | XMS_ITS | Encounter Summary ---
Author Organization [facility] Address [address] [place] [address] Phone Care Team Providers Care Signal Worker Name Role Phone Royce Wild MD Primary Care Provid er Encounter Details Date Type Department Care Team (Late st Contact Info) Description 06/05/2024 Procedure Pass [facility] EKG [address] [place] [address] Social History Tobacco Use Types Packs/Day Years [...] Description 06/09/2025 3:00 PM EDT Office Visit [facility] Cardio [facility]is[facility] [address] [place] [address] Caridad Smith MD [address] [place] [address] [address] [place] [address] [email or web address] documented as of this encounter Visit Diagnoses Not on filedocumented in this encounter Care Teams Signal Worker Relationship Specialty Start Date End Date Royce Wild MD [address] [place] [id number] PCP - General Internal Medicine 01/10/24 documented as of this encounter Additional Source Comments The information contained in this document represents components of the legal health record. It is not the complete legal health record.[facility]
--- OUTSIDE RECORDS SUMMARY | 2024-11-05 12:48 | XMS_ITS | Clinical Summary ---
Author Organization [facility] it Address [address] [place] [address] Care Team Providers Care Well Driller Helper Name Role Phone El Awan MD Primary Care Provider [phone] Surgical History Surgery Date Site/Laterality Comments SECTION PROCEDURE: HISTORICAL TUBAL LIGATION PROCEDURE: HISTORICAL TUBAL LIGATION HYSTERECTOMY PROCEDURE: HISTORICAL HYSTERECTOMY; COMMENT: for fibroids LAPAROSCOPIC GASTRIC BANDING 2005 PROCEDURE: LAP ADJUSTABLE GASTRIC BAND; COMMENT: insertion of adjustable band BELT ABDOMINOPLASTY 2009 PROCEDURE: HISTORICAL TUMMY TUCK UPPER GASTROINTESTINAL ENDOSCOPY 06/25/2018 PROCEDURE: UPPER GI ENDOSCOPY/EXAM; COMMENT: esophageal spasm, lap band, gastritis OTHER SURGICAL HISTORY 08/15/2018 PROCEDURE: MN LAPS GASTRIC RESTRICTIVE PX REMOVE DEVICE & PORT; COMMENT: removal of adjustable band BREAST BIOPSY 06/09/2010 Left PROCEDURE: BX BREAST; PERC NEEDLE CORE W/IMAG GUID; COMMENT: apocrine metaplasia OTHER SURGICAL HISTORY Right PROCEDURE: MN BRONCHOSCOPY W/TRANSBRONCHIAL LUNG BX EACH LOBE; COMMENT: RUL, RML - benign results BARIATRIC SURGERY 11/24/2018 PROCEDURE: MN LAPS GSTRC RSTRICTIV PX LONGITUDINAL GASTRECTOMY; COMMENT: Sleeve Gastrectomy UPPER GASTROINTESTINAL ENDOSCOPY 08/05/2019 PROCEDURE: MN UPPER GI ENDOSCOPY PERFORMED; COMMENT: biopsy pending [...] (BMI) of 40.0 to 44.9 in adult ([facility]/HCC V24, [facility]/HCC V28) 10/21/2018 DX:Class 3 severe obesity d ue to excess calories with serious comorbidity and body mass index (BMI) of 40.0 to 44.9 in adult ([facility]) Snoring 06/17/2018 DX:Snoring Sarcoidosis 05/04/2019 DX:Sarcoidosis Family [...] Documents on File Type Date Recorded Patient Artificial Intelligence Specialist Expl anation Health Care Decision (hx) 11/18/2018 [...] (hx) 11/18/2018 AD ORELLANA DIRECTIVE Care Teams Well Driller Helper Relationship Specialty Start Date End Date El Awan MD [address] [facility] [address] [place] [id number] PCP - General Internal Medicine 07/10/18
--- OUTSIDE RECORDS SUMMARY | 2024-11-05 12:48 | XMS_ITS | Clinical Summary ---
Author Organization [address] Address [address] [place] [phone] Care Team Providers Care Horse Racetrack Manager Name Role Phone Unavailable Primary Care [...] Series) 2022 Covid-19 vaccine series (1 - season) 2024 Influenza vaccine 11/02/2024 RSV Immunization (1 - 1-dose 75+ series) 05/25/2047 Meningococcal B Vaccine Aged Out No l onger eligible based on patient's age to complete this topic Meningococcal Vaccine Aged Out No lyssa merna eligible based on patient's age to complete this topic
--- OUTSIDE RECORDS SUMMARY | 2024-11-05 12:48 | XMS_ITS | Clinical Summary ---
Author Organization [facility] Address [address] [place] [address] Phone Care Team Providers Care Grants And Contracts Assistant Name Role Phone Royce Wild MD Primary Care Provid er Allergies Active Allergy Reactions Criticality Noted Date Comments Levofloxacin Hives 03/06/2024 Medications abatacept (ORENCIA) 125 mg/mL Syrg subcutaneous injection syringe Inject 125 mg under the skin every 7 days. Active albuterol 90 mcg/actuation inhaler Inhale 2 puffs into the lungs every 6 (six) hours as needed for wheezing. Active budesonide (PULMICORT FLEXHALER) 90 mcg/actuation inhaler Inhale 1 puff into the lungs 2 (two) times a day. Active FLUoxetine (PROZAC) 10 MG capsule Take 10 mg by mouth daily. Taking 30 mg watson Active budesonide (PULMICORT) 0.25 mg/2 mL nebulizer solution Take 0.25 mg by nebulization daily. Active famotidine (PEPCID) 40 MG tablet Take 40 mg by mouth daily. Active folic acid (FOLVITE) 1 MG tablet Take 1 mg by mouth daily. Active gabapentin (NEURONTIN) 300 MG capsule Take 300 mg by mouth 3 (three) times a day. Active meclizine (ANTIVERT) 25 mg tablet Take 25 mg by mouth 3 (three) times a day as needed. Active cyanocobalamin, vitamin B-12, 1000 MCG tablet Take 1,000 mcg by mouth daily. Active predniSONE (DELTASONE) 20 MG tablet Take 20 mg by mouth daily with breakfast. Active simethicone (MYLICON,GAS-X) 180 mg capsule Take 180 mg by mouth every 6 (six) hours as needed for flatulence. Active oxyCODONE 5 MG immediate release tablet Take 5 mg by mouth every 4 (four) hours as needed. prn Active predniSONE (DELTASONE) 10 MG tablet Take 10 mg by mouth daily. Active lubiprostone (AMITIZA) 8 MCG capsule Take 2 capsules by mouth 2 (two) times a day. 3 Active budesonide-formo terol 160-4.5 mcg/actuation inhaler INHALE 2 PUFFS ORALLY 2 TIMES A DAY 6 Active omeprazole (PRILOSEC) 40 MG capsule Take by mouth daily. Active tiotropium (SPIRIVA HANDIHALER) 18 mcg inhalation capsule Inhale 18 mcg into the lungs. Active Family History Medical History Relation Comments Heart attack Brother Heart attack Father Heart attack Mother Relation Status Comments Brother Father Mother Social History Tobacco Use Types Packs/Day Years Used Date Smoking Tobacco: Former Cigarettes Q uit: 2004 Smokeless Tobacco: Never Tobacco Cessation:Counseling Given: Not Answered Alcohol Use Standard Drinks/Week Comments Not Currently 0 (1 standard drink = 0.6 oz pur e alcohol) Education Answer Date Recorded Are you interested [...] Orientation Straight 01/10/2024 9: 04 AM EST Last Filed Vital Signs Vital Sign Reading Time Taken Comments Blood Pressure 106/64 06/05/2024 3:18 PM EDT L, 104/62 Pulse 73 06/05/2024 3:18 PM EDT Temperature - - Respiratory Rate - - Oxygen Saturation 99% 06/05/2024 3:18 PM EDT Inhaled Oxygen Concentration - - Weight 93.1 kg (205 lb 3.2 oz) 06/05/2024 3:18 P M EDT Height 157.5 cm (5' 2 ) 06/05/2024 3:18 PM EDT Body Mass Index 37.53 06/05/2024 3:18 PM EDT Plan of Treatment Upcoming Encounters Date Type Department Care Team (Late st Contact Info) Description 06/09/2025 3:00 PM EDT Office Visit [facility] Cardio Multispecialty [address] [place] [address] Caridad Smith MD [address] [place] [address] 5th [place] [address] [email or web address] Health Maintenance Due Date Last Done Comments LIPID PANEL 1972 HEPATITIS C SCREENING 1990 HIV ONE-TIME SCREENING (18-6 5 YEARS) 1990 PAP SMEAR 1993 SCREENING FOR DIABETES 05/25/2007 MAMMOGRAM 2012 COLOGUARD 2017 COLONOSCOPY 2017 COLORECTAL CANCER SCREENING 2017 FIT TEST 2017 FOBT 2017 SIGMOIDOSCOPY 2017 VIRTUAL COLONOSCOPY 2017 COVID-19 VACCINE (3 - Pfizer risk series) 10/04/2020 09/06/2020, 08/16/2020 DEPRESSION SCREENING 03/05/2025 03/05/2024 SMOKING Hx and SMOKELESS TOBACCO SCREENING 06/05/2025 06/05/2024 Adult Td,Tdap Booster 10/10/2026 10/10/2016 , 03/26/2006 PNEUMOCOCCAL VACCINES (50+ years) Completed 02/19/2022 ZOSTER VACCINES Completed 09/19/2022, 07/12/2022 HEPATITIS A VACCINES Aged Out No long er eligible based on patient's age to complete this topic HIB VACCINES Aged Out No longer eligi ble based on patient's age to complete this topic MENINGOCOCCAL VACCINES (ACWY) Aged Out No longer eligible based on patient's age to complete this topic MENINGOCOCCAL VACCINES (B) Aged Out N o longer eligible based on patient's age to complete this topic Medical Devices Not on file Insurance PPO [facility] PPO [employer]UE CROSS OUT OF STATE PPO BLUE [employer]OSS OUT OF STATE PPO [place] OUT OF STATE PPO OUT OF STATE PPO Care Teams Grants And Contracts Assistant Relationship Specialty Start Date End Date Royce Wild MD [address] [place] [phone] PCP - General Internal Medicine 01/10/24 Additional Source Comments The information contained in this document represents components of the legal health record. It is not the complete legal health record.[facility]
--- OUTSIDE RECORDS SUMMARY | 2024-11-05 12:48 | XMS_ITS | Encounter Summary ---
Author Organization [facility] Address [address] [place] [address] Phone Care Team Providers Care Personal Lines Appraiser Name Role Phone Royce Wild MD Primary Care Provid er Encounter Details Date Type Department Care Team (Late st Contact Info) Description 06/05/2024 Procedure Pass [facility] Echocardiography at [address] [address] Social History Tobacco Use Types Packs/Day Years Used Date Smoking Tobacco: Former Cigarettes Q uit: 2005 Smokeless Tobacco: Never Alcohol Use Standard Drinks/Week Comments Not Currently [...] Description 06/09/2025 3:00 PM EDT Office Visit [facility] Cardio Multispecialty [address] [place] [address] Caridad Smith MD [address] [place] [address] 5[address] [place] [address] [email or web address] documented as of this encounter Visit Diagnoses Not on filedocumented in this encounter Care Teams Personal Lines Appraiser Relationship Specialty Start Date End Date Royce Wild MD [address] [place] [phone] PCP - General Internal Medicine 01/10/24 documented as of this encounter Additional Source Comments The information contained in this document represents components of the legal health record. It is not the complete legal health record.[facility]
[2024-11-05 13:07] LABS: Folate 10.2 ng/mL (> or = 4.0); Vitamin B12 200 pg/mL (200-900)
== END 2024-11-05 10:01 | disposition home or self-care (01) ==
LOC: HO.LAB 10:00
PROVIDERS: PCP Internal Medicine
DX: Z00.00 Encounter for general adult medical examination without abnormal findings (principal); I10 Essential (primary) hypertension; E66.01 Morbid (severe) obesity due to excess calories; K21.9 Gastro-esophageal reflux disease without esophagitis; K58.2 Mixed irritable bowel syndrome; D12.6 Benign neoplasm of colon, unspecified; M05.9 Rheumatoid arthritis with rheumatoid factor, unspecified; D86.9 Sarcoidosis, unspecified; J84.9 Interstitial pulmonary disease, unspecified; F51.01 Primary insomnia; G47.33 Obstructive sleep apnea (adult) (pediatric); Z13.29 Encounter for screening for other suspected endocrine disorder; Z13.21 Encounter for screening for nutritional disorder
CPT/HCPCS: 36415; 80061; 82306; 82607; 82746; 84443; 96127

== ENCOUNTER 2024-11-24 12:47 | Outpatient (AMB) | payer BC, SELFPAY ==
[2024-11-24 12:56] VITALS: BP 110/61; PULSE 71; BMI 38.5
--- NOTE | 2024-11-24 12:56 | A.OFFVIS_ITS ---
Vital Signs 11/24/24 12:56 Height 5 ft 2 in Weight 210 lb 5.136 oz BMI 38.5 BP 110/61 Blood Pressure Location Lt brachial Position Sitting Pulse 71 Intake Visit Reasons: 6 WKS F/U r/s 11/12 Intake Note: Marisabel returns to in office follow up of constipation and diarrhea. CC: Patient states that she continues doing the same having diarrhea alternating with constipation. Nanotechnology Engineering Technician Required: No Accompanied by: Daughter Allergies levofloxacin Allergy (Severe, Verified 11/24/24 13:05) hives HPI HPI 6 WKS F/U r/s 11/12: Details: Assessment & Plan (1) GERD (gastroesophageal reflux disease): Code(s): K21.9 - Gastro-esophageal reflux disease without esophagitis Category: Medical (2) Irritable bowel syndrome with both constipation and diarrhea: Code(s): K58.2 - Mixed irritable bowel syndrome Category: Medical Plan She continues on her Amitiza, 16 micro g twice a day, omeprazole morning and famotidine at night. She has only been taking 1 amitiza bid, so I want her to increase it. The creon resolved the diarrhea, so EPI (exocrine pancreatic insufficiency not related to pancreatitis) is likely but now we have to control the CIC end. She asks me about the Creon. Apparently she is talking to a telehealth provider about being put on Ozempic and they objected saying ?if your on Creon you must have pancreatitis. ? I let her know that this is absolutely not the case, and there is no contraindication for her to start Ozempic except of course if she does not tolerate it wants to begun. She was just started on REmicaide for her RA/sarcoid. ROV 8 weeks. Medications: Refilled lubiprostone 16 mcg (2 x 8 mcg) PO BID 360 caps 1RF K58.2 - Mixed irritable bowel syndrome TODAY'S VISIT [facility] Medical History Contusion of left chest wall Lung mass COVID-19 Cervical mass Intercostal neuralgia Mixed connective tissue disease Transaminitis Sarcoidosis Class 2 severe obesity with body mass index (BMI) of 35 to 39.9 with serious comorbidity Closed fracture of phalanx of right fourth toe Toe fracture, right Right foot pain Toe pain, right Hot flashes Low libido Pre-op examination Adult general medical exam Diarrhea Screening for breast cancer Cervical cancer screening Screening for colon cancer 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, 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 Pleuritic chest pain Sinusitis Headache Right ankle sprain Ankle pain Chest pain RUQ pain Thyroid nodule Lymphadenopathy Bradycardia Pneumonia BRCA gene positive Chronic idiopathic constipation Post herpetic neuralgia Multinodular thyroid 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 Lump of left thigh ÁNGELA (obstructive sleep apnea) Insomnia ILD (interstitial lung disease) Sarcoidosis Dizziness SOB (shortness of breath) Surgical History H/O colonoscopy (~11/08/22) History of removal of ovarian cyst History of lung surgery History of breast biopsy Hx of abdominoplasty History of laparoscopic adjustable gastric banding History of tubal ligation History of section History of hysterectomy History of cholecystectomy Family History Father Cardiovascular disease Mother Cardiovascular disease Hypertension Thyroid condition History of breast cancer Daughter Thyroid condition Rheumatoid arthritis Sister Thyroid condition Brother Rheumatoid arthritis Maternal Aunt History of breast cancer Maternal Aunt History of breast cancer Maternal Aunt History of breast cancer Maternal Aunt History of breast cancer Social History Housing: House Alcohol intake: current Alcohol intake frequency: holidays/special occasions only Patient Tobacco Use Status: Former Tobacco user Tobacco use type: Cigarette Years Smoked: 15 years quit about 20 years ago e-Cigarette/Vaping Use: Never Used Second Hand Smoke Exposure: Yes service: No Current occupational status: unemployed Current occupation: rt handed Cognitive needs: No Hearing needs: No Vision needs: Yes (Glasses) Review of Systems Const Denies fatigue, Denies fever(s), Denies night sweats, Denies poor appetite and Denies weight loss ENT Reports Normal hearing present, Denies dental pain, Denies dysphagia, Denies hearing loss, Denies mouth pain, Denies odynophagia, Denies throat swelling, Denies tongue swelling and Reports other (Dentition adequate) Card Reports no additional complaints Resp Reports no additional complaints GI Details: Denies abdominal pain, Denies melena, Reports bloating, Denies hematochezia, Reports constipation, Denies GI cramping, Denies dysphagia, Denies excessive flatus, Denies early satiety, Reports heartburn, Reports diarrhea, Denies nausea, Denies odynophagia, Denies vomiting and Denies hematemesis Skin/Breast Denies pruritus, Denies lesions, Denies rash and Denies jaundice Neuro Reports Normal hearing present and Denies Abnormal speech present Endo Denies fatigue Aller/Immun Denies throat swelling and Denies tongue swelling Physical Exam Vital Signs: Last Vital Signs Pulse 71 11/24/24 12:56 BP 110/61 11/24/24 12:56 BMI result Body Mass Index 38.5 Const General: cooperative, no acute distress, well developed and well groomed Nutritional Appearance: well nourished and obese Orientation/consciousness: oriented to person, oriented to place and oriented to time Limitations: No language barrier HEENT Head: Yes normocephalic and Yes atraumatic Eyes General: appearance normal, both eyes and all related structures Pupils: Equal, round and reactive pupils present Neck Neck: Yes normal visual inspection and Yes no lymphadenopathy Thyroid: Thyroid normal Resp Effort & Inspection: normal respiratory effort and able to speak in complete sentences Auscultation: clear to auscultation bilaterally Cardio Rate: regular rate Rhythm: regular rhythm Heart sounds: Normal, physiologic split S2 sound present Peripheral pulses: radial pulses present and posterior tibial pulses present GI Inspection: No distended, Yes Abdominal panniculus present and Yes obesity Palpation (GI): Soft to palpation, nontender, no guarding, not rigid and No hep atosplenomegaly present Percussion: Yes normal to percussion Auscultation: normal bowel sounds Rectal Exam - Female: deferred Skin General skin exam: no rashes or lesions noted, turgor normal, skin not dry, no jaundice, No spider nevi and no striae Rashes: no rashes Nails: normal Neuro General: oriented to person, oriented to place and oriented to time Cranial nerves: Yes Equal, round and reactive pupils present and Yes Normal hearing present Speech: No Abnormal speech present Extrem General: Yes normal to inspection, No clubbing, No cyanosis and No edema Psych Appearance: grossly normal and well kempt Mental Status: mental status grossly normal Speech and movement: Normal speech and movement present Affect: normal affect Attitude: cooperative Thought process: Normal thought process present and not confabulating Thought content: Normal thought content present Insight: Good insight present (Psych) Judgement: Good judgement present (Psych) Assessment & Plan Assessment & Plan (1) Tubular adenoma of colon: Comment: 2022=Large TA's repeat 3 years Code(s): D12.6 - Benign neoplasm of colon, unspecified Category: Medical (2) Irritable bowel syndrome with both constipation and diarrhea: Code(s): K58.2 - Mixed irritable bowel syndrome Category: Medical (3) GERD (gastroesophageal reflux disease): Code(s): K21.9 - Gastro-esophageal reflux disease without esophagitis Category: Medical Plan Her current GI regimen consists of Amitiza 16 micro g twice a day, omeprazole in the morning and famotidine at night, and Creon We are still having trouble managing and regulating her bowels. If she takes 116 micro g Amitiza she is constipated but if she takes it twice a day she has diarrhea. This prompts me to advise that she try taking 2 1 day and 1 the next to see if we can get better bowel control. She is agreeable to this. Otherwise her GI symptoms are well controlled. Return office visit in 6 weeks Coding Level of Care Code Est Pt Level 3 (37339) Diagnoses Tubular adenoma of colon D12.6 Irritable bowel syndrome with both constipation and diarrhea K58.2 GERD (gastroesophageal reflux disease) K21.9
--- OUTSIDE RECORDS SUMMARY | 2024-11-24 15:40 | XMS_ITS | Encounter Summary ---
Author Organization [facility] Address [address] [place] [address] Phone Care Team Providers Care Fur Examiner Name Role Phone Royce Wild MD Primary Care Provid er Encounter Details Date Type Department Care Team (Late st Contact Info) Description 06/05/2024 Procedure Pass [facility] EKG [address] [place] [address] Social History Tobacco Use Types Packs/Day Years [...] Description 06/09/2025 3:00 PM EDT Office Visit [facility] Cardio Multispecialty [address] [place] [address] Caridad Smith MD [address] [place] [address] 5th [place] [address] [email or web address] documented as of this encounter Visit Diagnoses Not on filedocumented in this encounter Care Teams Fur Examiner Relationship Specialty Start Date End Date Royce Wild MD [address] [place] [phone] PCP - General Internal Medicine 01/10/24 documented as of this encounter Additional Source Comments The information contained in this document represents components of the legal health record. It is not the complete legal health record.[facility]
--- OUTSIDE RECORDS SUMMARY | 2024-11-24 15:40 | XMS_ITS | Clinical Summary ---
Author Organization [facility] Address [address] [place] [address] Phone Care Team Providers Care Technical Designer Name Role Phone Royce Wild MD Primary [...] Description 06/09/2025 3:00 PM EDT Office Visit [facility] Cardio Multispecialty [address] [place] [address] Caridad Smith MD [address] [place] [address] 5th [place] [address] [email or web address] Health Maintenance Due Date Last Done Comments LIPID PANEL 1972 HEPATITIS C SCREENING 1990 HIV ONE-TIME SCREENING (18-65 YEARS) 1990 PAP SMEAR 1993 SCREENING FOR DIABETES 05/25/2007 MAMMOGRAM 2012 COLOGUARD 2017 COLONOSCOPY 2017 COLORECTAL CANCER SCREENING 2017 FIT TEST 2017 FOBT 2017 SIGMOIDOSCOPY 2017 VIRTUAL COLONOSCOPY 2017 COVID-19 VACCINE (3 - Pfizer risk series) 10/04/2020 09/06/2020, 08/16/2020 INFLUENZA VACCINE (#1) 2024 , 01/31/2023, 02/19/2022, Additional history exists DEPRESSION SCREENING 03/05/2025 03/05/2024 SMOKING Hx and SMOKELESS TOBACCO SCREENING 06/05/2025 06/05/2024 Adult Td,Tdap Booster 10/10/2026 10/10/2016, 007 PNEUMOCOCCAL VACCINES (50+ years) Completed 02/19/2022 ZOSTER [...] topic Medical Devices Not on file Insurance [facility] PPO [facility] PPO BLUE CROSS OUT OF STATE PPO BLUE CROSS OUT OF STATE PPO [employer] CROSS OUT OF STATE PPO [facility] OUT OF STATE PPO Care Teams Technical Designer Relationship Specialty Start Date End Date Royce Wild MD [address] [place] [phone] PCP - General Internal Medicine 01/10/24 Additional Source Comments The information contained in this document represents components of the legal health record. It is not the complete legal health record.[facility]
--- OUTSIDE RECORDS SUMMARY | 2024-11-24 15:40 | XMS_ITS | Encounter Summary ---
Author Organization [facility] Address [address] [place] [address] Phone Care Team Providers Care Proof Carrier Name Role Phone Royce Wild MD Primary Care Provid er Encounter Details Date Type Department Care Team (Late st Contact Info) Description 06/05/2024 Procedure Pass [facility] Echocardiography at [address] [address] Social History Tobacco Use Types Packs/Day Years [...] Description 06/09/2025 3:00 PM EDT Office Visit [facility] Cardio Multispecialty [address] [place] [address] Caridad Smith MD [address] [place] [address] 5th [place] [address] [email or web address] documented as of this encounter Visit Diagnoses Not on filedocumented in this encounter Care Teams Proof Carrier Relationship Specialty Start Date End Date Royce Wild MD [address] [place] [phone] PCP - General Internal Medicine 01/10/24 documented as of this encounter Additional Source Comments The information contained in this document represents components of the legal health record. It is not the complete legal health record.[facility]
--- OUTSIDE RECORDS SUMMARY | 2024-11-24 15:40 | XMS_ITS | Clinical Summary ---
Author Organization [facility] it Address [address] [place] [address] Care Team Providers Care Feeder/Folder Name Role Phone El Awan MD Primary Care Provider Surgical History Surgery Date Site/Laterality Comments SECTION [...] (BMI) of 40.0 to 44.9 in adult ([facility], [facility]) 10/21/2018 DX:Class 3 severe obesity d ue to excess calories with serious comorbidity and body mass index (BMI) of 40.0 to 44.9 in adult ([facility]) Snoring 06/17/2018 DX:Snoring Sarcoidosis 05/04/2019 DX:Sarcoidosis Family [...] 2022 Zoster Vaccines (1 of 2) 2022 Depression Screening 03/04/2024 COVID-19 Vaccine ( - season) 2024 Influenza Vaccine (#1) 2024 , 11/08/2017, 12/03/2016, [...] Documents on File Type Date Recorded Patient Forms Analysis Manager Expl anation Health Care Decision (hx) 11/18/2018 [...] (hx) 11/18/2018 AD ORELLANA DIRECTIVE Care Teams Feeder/Folder Relationship Specialty Start Date End Date El Awan MD [address] [facility] [address] [place] [phone] PCP - General Internal Medicine 07/10/18
--- OUTSIDE RECORDS SUMMARY | 2024-11-24 15:40 | XMS_ITS | Clinical Summary ---
Author Organization [address] Address [address] [place] [id number] Care Team Providers Care Lean Manufacturing Engineer Name Role Phone Unavailable Primary Care Provider [...] Shingrix (RZV) 2 Dose Standard Series) 2022 Influenza vaccine 10/02/2024 Covid-19 vaccine series ( - season) 2024 RSV Immunization (1 - 1-dose 75+ series) 05/25/2047 Meningococcal B Vaccine Aged Out No l onger eligible based on patient's age to complete this topic Meningococcal Vaccine Aged Out No lyssa merna eligible based on patient's age to complete this topic
== END 2024-11-24 14:02 | disposition home or self-care (01) ==
LOC: HO.HGI 12:48
PROVIDERS: PCP Internal Medicine; Visit Provider Nurse Practitioner
DX: D12.6 Benign neoplasm of colon, unspecified (principal); K58.2 Mixed irritable bowel syndrome; K21.9 Gastro-esophageal reflux disease without esophagitis
CPT/HCPCS: 99213

== ENCOUNTER 2024-11-27 14:44 | Outpatient (AMB) | payer BC, SELFPAY ==
--- NOTE | 2024-11-27 14:46 | AM.OFFWIN_ITS ---
Intake Vital Signs 11/27/24 14:48 Height 5 ft 2 in Weight 210 lb BMI 38.4 BP 122/70 Blood Pressure Location Rt brachial Position Sitting Respiration 16 Pulse 70 Pulse Source Pulse Oximeter Temp 98.1 F Temp Source Oral Pulse Oximetry (%) 98 Oxygen Delivery Method Room Air Intake Visit Reasons: EP High BP/ headache/ dizziness/ BP 218/84 Patient Tobacco Use Status: Former Tobacco user Allergies levofloxacin Allergy (Severe, Verified 11/24/24 13:05) hives HPI HPI Comments History of Present Illness Details History of Present Illness - The patient is a 54-year-old female wi th pmed hx of HTN, obesity, GERD, OA of knees, multinodular thyroid, ÁNGELA, post covid syndrome, insomnia, ILD, Sarcoidosis and fibromyalgia presenting with a headache and concerns about an elevated blood pressure reading. - She reports waking up at 3:00 AM with a headache, affecting her ability to return to sleep and perform daily activities. - A telephonic consultation with her [facility] nurse led to a blood pressure reading of 218/84 mmHg, prompting a recommendation to visit her primary care provider. This occurred about 90 minutes ago. - The patient is on Lisinopril 10 mg at night for hypertension, with consistent adherence to her medication. - Concerns were raised about the accurac y of her blood pressure monitor due to t he high reading despite medication adherence. She just got the machine a few weeks ago - She has not taken any medication for t he headache, she states she hydrates well. Physical Exam General: Cooperative, healthy appearing, comfortable, no acute distress and well developed Orientation: Patient oriented x3 Limitations: No limitations Head: Normal to inspection Ears: Hearing grossly normal bilaterally Nose: Normal External nose present Face and sinus: Normal facial exam Eyes: Appearance normal, both eyes and all related structures Neck: Normal visual inspection and Yes full ROM Respiratory: Normal respiratory effort and able to speak in complete sentences. Skin: No rashes or lesions noted Neuro: Patient oriented x3 Extremities: Normal to inspection Review of Systems - Neurological: Reports waking up with a headache at 3:00 AM, affecting sleep and daily activities. - Cardiovascular: Reports elevated blood pressure reading of 218/84 mmHg during a telephonic consultation with a nurse from her [facility]. All systems reviewed and are unremarkable except as noted in HPI [facility] Medical History Contusion of left chest wall Lung mass COVID-19 Cervical mass Intercostal neuralgia Mixed connective tissue disease Transaminitis Sarcoidosis Class 2 severe obesity with body mass index (BMI) of 35 to 39.9 with serious comorbidity Closed fracture of phalanx of right fourth toe Toe fracture, right Right foot pain Toe pain, right Hot flashes Low libido Pre-op examination Adult general medical exam Diarrhea Screening for breast cancer Cervical cancer screening Screening for colon cancer 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, unspecified 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 Pleuritic chest pain Sinusitis Headache Right ankle sprain Ankle pain Chest pain RUQ pain Thyroid nodule Lymphadenopathy Bradycardia Pneumonia BRCA gene positive Chronic idiopathic constipation Post herpetic neuralgia Multinodular thyroid [id number] syndrome Lump of left thigh ÁNGELA (obstructive sleep apnea) Insomnia ILD (interstitial lung disease) Sarcoidosis Dizziness SOB (shortness of breath) Surgical History H/O colonoscopy (~11/08/22) History of removal of ovarian cyst History of lung surgery History of breast biopsy Hx of abdominoplasty History of laparoscopic adjustable gastric banding History of tubal ligation History of section History of hysterectomy History of cholecystectomy Family History Father Cardiovascular disease Mother Cardiovascular disease Hypertension Thyroid condition History of breast cancer Daughter Thyroid condition Rheumatoid arthritis Sister Thyroid condition Brother Rheumatoid arthritis Maternal Aunt History of breast cancer Maternal Aunt History of breast cancer Maternal Aunt History of breast cancer Maternal Aunt History of breast cancer Social History Housing: House Alcohol intake: current Alcohol intake frequency: holidays/special occasions only Patient Tobacco Use Status: Former Tobacco user Tobacco use type: Cigarette Years Smoked: 15 years quit about 20 years ago e-Cigarette/Vaping Use: Never Used Second Hand Smoke Exposure: Yes service: No Current occupational status: unemployed Current occupation: rt handed Cognitive needs: No Hearing needs: No Vision needs: Yes (Glasses) Physical Exam Vital Signs: Last Vital Signs Temp 98.1 F 11/27/24 14:48 Pulse 70 11/27/24 14:48 Resp 16 11/27/24 14:48 BP 122/70 11/27/24 14:48 Pulse Ox 98 11/27/24 14:48 Oxygen Delivery Method Room Air 11/27/24 14:48 BMI result Body Mass Index 38.4 Assessment & Plan Assessment & Plan (1) Hypertension: Code(s): I10 - Essential (primary) hypertension Qualifiers: Hypertension type: primary hypertension Qualified Code(s): I10 - Essential (primary) hypertension Plan: Plan Patient was informed and verbally consented to the use of an ambient scribe for clinic note documentation during this visit. - Multiple checks of her BP by different MA's all were WNL in the office today, 90 mins after the elevated reading she got at home. - Advise checking the blood pressure monitor's accuracy by comparing readings with another individual without hypertension. Can also call 911 and have EMS check her BP. If they find the machine is faulty, they should call [facility], where they got it a few weeks ago. - Continue Lisinopril 10 mg at night and monitor blood pressure regularly. - If blood pressure remains elevated with symptoms such as headache, seek emergency care. - Recommend taking 1000 mg of Tylenol every 8 hours as needed for headache relief. - If no improvement, consider adding 600 mg every 6 hours of Motrin or Advil and some caffeine. - Ensure adequate rest and hydration and a low-salt diet to help manage symptoms. (2) Generalized headaches: Code(s): R51.9 - Headache, unspecified Plan: as above Coding Level of Care Code Est Pt Level 3 (35192) Diagnoses Primary hypertension I10 Hypertension type: primary hypertension Generalized headaches R51.9
[2024-11-27 14:48] VITALS: BP 122/70; PULSE 70; RESP 16; TEMP 36.7; O2SAT 98; BMI 38.4
--- OUTSIDE RECORDS SUMMARY | 2024-11-27 15:33 | XMS_ITS | Encounter Summary ---
Author Organization [facility] Address [address] [place] [address] Phone Care Team Providers Care Production Cell Leader Name Role Phone Royce Wild MD Primary Care Provid er Encounter Details Date Type Department Care Team (Late st Contact Info) Description 06/05/2024 Procedure Pass [facility] Echocardiography at [address] [address] Social History Tobacco Use Types Packs/Day Years [...] Description 06/09/2025 3:00 PM EDT Office Visit [facility] Cardio Multispecialty [address] [place] [address] Caridad Smith MD [address] [place] [address] 5th [place] [address] [email or web address] documented as of this encounter Visit Diagnoses Not on filedocumented in this encounter Care Teams Production Cell Leader Relationship Specialty Start Date End Date Royce Wild MD [address] [place] [id number] PCP - General Internal Medicine 01/10/24 documented as of this encounter Additional Source Comments The information contained in this document represents components of the legal health record. It is not the complete legal health record.[facility]
--- OUTSIDE RECORDS SUMMARY | 2024-11-27 15:33 | XMS_ITS | Encounter Summary ---
Author Organization [facility] Address [address] [place] [address] Phone Care Team Providers Care Party Host/Hostess Name Role Phone Royce Wild MD Primary Care Provid er Encounter Details Date Type Department Care Team (Late st Contact Info) Description 06/05/2024 Procedure Pass [facility] EKG [address] [place] [address] Social History Tobacco Use Types Packs/Day Years [...] Description 06/09/2025 3:00 PM EDT Office Visit [facility] Cardio Multispecialty [address] [place] [address] Caridad Smith MD [address] [place] [address] 5th [place] [address] [email or web address] documented as of this encounter Visit Diagnoses Not on filedocumented in this encounter Care Teams Party Host/Hostess Relationship Specialty Start Date End Date Royce Wild MD [address] [place] [id number] PCP - General Internal Medicine 01/10/24 documented as of this encounter Additional Source Comments The information contained in this document represents components of the legal health record. It is not the complete legal health record.[facility]
--- OUTSIDE RECORDS SUMMARY | 2024-11-27 15:33 | XMS_ITS | Clinical Summary ---
Author Organization [facility] Address [address] [place] [address] Phone Care Team Providers Care Stay Cutter Name Role Phone Royce Wild MD Primary [...] Description 06/09/2025 3:00 PM EDT Office Visit [facility] Cardio Multispecialty [address] [place] [address] Caridad Smith MD [address] [place] [address] 5th [place] [address] [email or web address] Health Maintenance Due Date Last Done Comments [...] topic Medical Devices Not on file Insurance [facility] OUT [facility] PPO [facility] OUT [facility] PPO [employer] OUT OF STATE PPO BL[employer] OUT OF STATE PPO [employer] OUT OF STATE PPO [facility] OUT OF STATE PPO Care Teams Stay Cutter Relationship Specialty Start Date End Date Royce Wild MD [address] [place] [phone] PCP - General Internal Medicine 01/10/24 Additional Source Comments The information contained in this document represents components of the legal health record. It is not the complete legal health record.[facility]
--- OUTSIDE RECORDS SUMMARY | 2024-11-27 15:34 | XMS_ITS | Clinical Summary ---
Author Organization [facility] it Address [address] [place] [address] Care Team Providers Care Manager Review Name Role Phone El Awan MD Primary Care Provider [phone] Surgical History Surgery Date Site/Laterality Comments SECTION [...] (BMI) of 40.0 to 44.9 in adult ([facility]/HCC V24, [facility]/HCC V28) 10/21/2018 DX:Class 3 severe obesity d ue to excess calories with serious comorbidity and body mass index (BMI) of 40.0 to 44.9 in adult ([facility]) Snoring 06/17/2018 DX:Snoring Sarcoidosis 05/04/2019 DX:Sarcoidosis Family [...] Documents on File Type Date Recorded 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
--- OUTSIDE RECORDS SUMMARY | 2024-11-27 15:34 | XMS_ITS | Clinical Summary ---
Author Organization [address] Address [address] [place] [phone] Care Team Providers Care Director Of Clinical Applications Name Role Phone Unavailable Primary Care Provider [...]
== END 2024-11-27 16:20 | disposition home or self-care (01) ==
PROVIDERS: Visit Provider Physician Assistant
DX: I10 Essential (primary) hypertension (principal); R51.9 Headache, unspecified

== ENCOUNTER 2024-12-01 13:32 | Outpatient (AMB) | payer BC, SELFPAY ==
--- NOTE | 2024-12-01 13:33 | A.OFFVIS_ITS ---
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 Appeals Representative concerns: Having hot flashes. History of BRCA positive. History of hysterectomy due to fibroids and heavy menstrual bleeding. Currently not sexually active due husbands medical conditions. Denies any v aginal dryness or irritation. Attempting to eat a anti inflammatory healthy diet with calcium and vitamin D and stays active with exercise-walking and Last pap smear; 2022, negative. Last mammogram; 2024. Colonoscopy is UTD. Family history of breast cancer. 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 Pleuritic chest pain Sinusitis Headache Right ankle sprain Ankle pain Chest pain RUQ pain Thyroid nodule Lymphadenopathy Bradycardia Pneumonia BRCA gene positive Chronic idiopathic constipation Post herpetic neuralgia Multinodular thyroid [id number] syndrome Lump of left thigh ÁNGELA (obstructive sleep apnea) Insomnia ILD (interstitial lung disease) Sarcoidosis Dizziness SOB (shortness of breath) Surgical History H/O colonoscopy (~11/08/22) History of removal of ovarian cyst History of lung surgery History of breast biopsy Hx of abdominoplasty History of laparoscopic adjustable gastric banding History of tubal ligation History of section History of hysterectomy History of cholecystectomy Family History Father Cardiovascular disease Mother Cardiovascular disease Hypertension Thyroid condition History of breast cancer Daughter Thyroid condition Rheumatoid arthritis Sister Thyroid condition Brother Rheumatoid arthritis Maternal Aunt History of breast cancer Maternal Aunt History of breast cancer Maternal Aunt History of breast cancer Maternal Aunt History of breast cancer Social History Housing: House Alcohol intake: current Alcohol intake frequency: holidays/special occasions only Patient Tobacco Use Status: Former Tobacco user Tobacco use type: Cigarette Years Smoked: 15 years quit about 20 years ago e-Cigarette/Vaping Use: Never Used Second Hand Smoke Exposure: Yes service: No Current occupational status: unemployed Current occupation: rt handed Cognitive needs: No Hearing needs: No Vision needs: Yes (Glasses) Female Reproductive History Menstrual Age of Menarche: 11 Menopause type: surgical Total pregnancies: 2 Number of Living Children: 2 Date of last pap smear: 10/30/22 History of abnormal pap smear: No Date of Mammogram: 09/17/24 History of abnormal mammogram: No Review of Systems Const All systems reviewed & are unremarkable except as noted in HPI and below Reports as per HPI Eyes Reports no additional complaints ENT Reports no additional complaints Card Reports no additional complaints Resp Reports no additional complaints GI Reports as per HPI and Reports no additional complaints Reports as per HPI Musc Reports no additional complaints Skin/Breast Reports as per HPI Neuro Reports no additional complaints Psych Reports no additional complaints Endo Reports no additional complaints Edmundo/Lymph Reports no additional complaints Aller/Immun Reports no additional complaints Physical Exam Vital Signs: Last Vital Signs BP 116/76 12/01/24 13:41 BMI result Body Mass Index 38.4 Const General: cooperative, healthy appearing, no acute distress, well developed and alert Orientation/consciousness: patient oriented x3 HEENT Head: Yes normal to inspection Eyes General: appearance normal, both eyes and all related structures Neck Neck: Yes normal visual inspection Thyroid: Thyroid normal Chest Chest palpation & inspection: normal inspection of the chest and other (no puckering, dimpling, peau de orange, retraction, discharge, masses) Breast/axilla inspection: normal inspection of the breasts Breast/axilla palpation: normal palpation of the breasts Resp Effort & Inspection: normal respiratory effort GI Inspection: Yes normal to inspection and Yes scar Palpation (GI): Soft to palpation Rectal Exam - Female: deferred General: Yes bladder normal to palpation External Female Exam: normal external appearance and normal appearance of the urethra Speculum Exam - Vagina: normal appearance of the vagina, normal palpation and normal vaginal discharge Speculum Exam - Cervix: normal appearance of the cervix and normal palpation Bimanual exam- vagina & uterus: normal bimanual exam, normal palpation, bladder normal to palpation, normal palpation and uterus absent Bimanual Exam- Adnexa, other: no masses Skin General skin exam: no rashes or lesions noted Rashes: no rashes Neuro General: patient oriented x3 Cognition (Neuro): normal cognition Extrem General: Yes normal to inspection Psych Attitude: cooperative Thought process: Normal thought process present Assessment & Plan Assessment & Plan (1) BRCA gene positive: Code(s): Z15.01 - Genetic susceptibility to malignant neoplasm of breast; Z15.09 - Genetic susceptibility to other malignant neoplasm Category: Medical (2) Hot flashes: Code(s): R23.2 - [place] Plan: Discussed menopausal changes in medications for treatment some meds of which he has already taken. Has not had risk reduction surgery consult completed. Information regarding certain types of breast cancer that can grow aggressively with use of hormones. She is interested in having a consult for risk reduction surgery due to BRCA positive. Menopause at or information provided. Referral placed to surgery for consult. The patient expressed understanding and agreement with the plan of care. All of her questions and concerns were addressed to the best of my ability. (3) Encounter for well woman exam with routine gynecological exam: Code(s): Z01.419 - Encounter for gynecological examination (general) (routine) without abnormal findings Category: Medical Plan Discussed: Current recommendations for pap smears per ASCCP guidelines. Breast awareness, periodic self breast exams and yearly mammogram. Maintain a healthy lifestyle, well balanced diet including Calcium 1,200 mg and Vitamin D 600 IU daily, and routine exercise. Contact the office if having any vaginal bleeding. Patient verbalizes understanding and agrees to the plan of care. She was given opportunity to ask questions and all questions were answered to the best of my ability. RTO in 1 year for annual lettuce cutter exam. This note is constructed using voice recognition software. While every effort has been made to ensure accuracy, cash applications clerk errors may have been included. Orders: Referrals Breast Surgery Referral Z15.01 - Genetic susceptibility to malignant neoplasm of breast, Z15.09 - Genetic susceptibility to other malignant neoplasm Coding Level of Care Code New Pt Prev Care 40-64y(18079) Diagnoses BRCA gene positive Z15.01; Z15.09 Hot flashes R23.2 Encounter for well woman exam with routine gynecological exam Z01.419
[2024-12-01 13:41] VITALS: BP 116/76; BMI 38.4
--- OUTSIDE RECORDS SUMMARY | 2024-12-01 14:49 | XMS_ITS | Clinical Summary ---
Author Organization [address] Address [address] [place] [phone] Care Team Providers Care Hat Body Sorter Name Role Phone Unavailable Primary Care Provider [...]
--- OUTSIDE RECORDS SUMMARY | 2024-12-01 14:49 | XMS_ITS | Clinical Summary ---
Author Organization [facility] it Address [address] [place] [address] Care Team Providers Care Accounts Receivable Accountant Name Role Phone El Awan MD Primary Care Provider [phone] Surgical History Surgery Date Site/Laterality Comments SECTION PROCEDURE: HISTORICAL TUBAL LIGATION PROCEDURE: HISTORICAL TUBAL LIGATION HYSTERECTOMY PROCEDURE: HISTORICAL HYSTERECTOMY; COMMENT: for fibroids LAPAROSCOPIC GASTRIC BANDING 2005 PROCEDURE: LAP ADJUSTABLE GASTRIC BAND; COMMENT: insertion of adjustable band BELT ABDOMINOPLASTY 2009 PROCEDURE: HISTORICAL TUMMY TUCK UPPER GASTROINTESTINAL ENDOSCOPY 06/25/2018 PROCEDURE: UPPER GI ENDOSCOPY/EXAM; COMMENT: esophageal spasm, lap band, gastritis OTHER SURGICAL HISTORY 08/15/2018 PROCEDURE: AR LAPS GASTRIC RESTRICTIVE PX REMOVE DEVICE & PORT; COMMENT: removal of adjustable band BREAST BIOPSY 06/09/2010 Left PROCEDURE: BX BREAST; PERC NEEDLE CORE W/IMAG GUID; COMMENT: apocrine metaplasia OTHER SURGICAL HISTORY Right PROCEDURE: AR BRONCHOSCOPY W/TRANSBRONCHIAL LUNG BX EACH LOBE; COMMENT: RUL, RML - benign results BARIATRIC SURGERY 11/24/2018 PROCEDURE: AR LAPS GSTRC RSTRICTIV PX LONGITUDINAL GASTRECTOMY; COMMENT: Sleeve Gastrectomy UPPER GASTROINTESTINAL ENDOSCOPY 08/05/2019 PROCEDURE: AR UPPER GI ENDOSCOPY PERFORMED; COMMENT: biopsy pending [...] (BMI) of 40.0 to 44.9 in adult ([facility]/HCC V24, [facility]/HCC V28) 10/21/2018 DX:Class 3 severe obesity d ue to excess calories with serious comorbidity and body mass index (BMI) of 40.0 to 44.9 in adult ([facility]) Snoring 06/17/2018 DX:Snoring Sarcoidosis [...] Depression Screening 03/04/2024 COVID-19 Vaccine ( - 2023- season) 2024 Influenza Vaccine (#1) 2024 , 11/08/2017, 12/03/2016, Additional history exists DTaP,Tdap,and Td Vaccines (3 - Td or Tdap) 10/10/2026 10/10/2016, 03/26/2006 RSV Immunization Adult Patients (1 - 1-dose 75+ series) 05/25/2047 MMR Vaccines Aged Out 07/16/2014, 06/16/2014 No [...] Documents on File Type Date Recorded 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
--- OUTSIDE RECORDS SUMMARY | 2024-12-01 14:49 | XMS_ITS | Clinical Summary ---
Author Organization [facility] Address [address] [place] [address] Phone Care Team Providers Care Coating Machine Feeder Name Role Phone Royce Wild MD Primary [...] Description 06/09/2025 3:00 PM EDT Office Visit [facility] Cardio Multispecialty [address] [place] [address] Caridad Smith MD [address] [place] [address] 5[address] [place] [address] [email or web address] Maintenance Due Date Last Done Comments [...] topic Medical Devices Not on file Insurance [facility] OUT [facility] PPO [facility] PPO [employer]OSS OUT OF STATE PPO [employer] OUT OF STATE PPO [employer] OUT OF STATE PPO [facility] OUT OF STATE PPO Care Teams Coating Machine Feeder Relationship Specialty Start Date End Date Royce Wild MD [address] [place] [id number] PCP - General Internal Medicine 01/10/24 Additional Source Comments The information contained in this document represents components of the legal health record. It is not the complete legal health record.[facility]
--- OUTSIDE RECORDS SUMMARY | 2024-12-01 14:49 | XMS_ITS | Encounter Summary ---
Author Organization [facility] Address [address] [place] [address] Phone Care Team Providers Care Department Operations Manager Name Role Phone Royce Wild MD Primary Care Provid er Encounter Details Date Type Department Care Team (Late st Contact Info) Description 06/05/2024 Procedure Pass [facility] EKG [address] [place] [address] Social History Tobacco Use Types Packs/Day Years [...] Description 06/09/2025 3:00 PM EDT Office Visit [facility] Cardio Multispecialty [address] [place] [address] Caridad Smith MD [address] [place] [address] 5th [place] [address] [email or web address] documented as of this encounter Visit Diagnoses Not on filedocumented in this encounter Care Teams Department Operations Manager Relationship Specialty Start Date End Date Royce Wild MD [address] [place] [address] PCP - General Internal Medicine 01/10/24 documented as of this encounter Additional Source Comments The information contained in this document represents components of the legal health record. It is not the complete legal health record.[facility]
--- OUTSIDE RECORDS SUMMARY | 2024-12-01 14:49 | XMS_ITS | Encounter Summary ---
Author Organization [facility] Address [address] [place] [address] Phone Care Team Providers Care Supervisor Roller Shop Name Role Phone Royce Wild MD Primary Care Provid er Encounter Details Date Type Department Care Team (Late st Contact Info) Description 06/05/2024 Procedure Pass [facility] Echocardiography at [address] [address] Social History Tobacco Use Types Packs/Day Years [...] Description 06/09/2025 3:00 PM EDT Office Visit [facility] Cardio Multispecialty [address] [place] [address] Caridad Smith MD [address] [place] [address] 5th [place] [address] [email or web address] documented as of this encounter Visit Diagnoses Not on filedocumented in this encounter Care Teams Supervisor Roller Shop Relationship Specialty Start Date End Date Royce Wild MD [address] [place] [address] PCP - General Internal Medicine 01/10/24 documented as of this encounter Additional Source Comments The information contained in this document represents components of the legal health record. It is not the complete legal health record.[facility]
== END 2024-12-01 14:21 | disposition home or self-care (01) ==
LOC: HO.HWS 13:32
PROVIDERS: Visit Provider Advanced Practice Midwife
DX: Z01.419 Encounter for gynecological examination (general) (routine) without abnormal findings (principal); R23.2 Flushing; Z15.01 Genetic susceptibility to malignant neoplasm of breast; Z15.09 Genetic susceptibility to other malignant neoplasm
CPT/HCPCS: 99396; 99459

== ENCOUNTER 2025-01-05 09:30 | Outpatient (AMB) | payer BC, SELFPAY ==
--- NOTE | 2025-01-05 09:32 | MHC.OFFVIS ---
Vital Signs 01/05/25 09:46 Height 5 ft 2 in Weight 207 lb BMI 37.9 BP 121/73 Blood Pressure Location Lt brachial Position Sitting Pulse 81 Intake Visit Reasons: Genetic susceptibility to malignant neoplasm of br Intake Note: Patient is seen in office for genetic susceptibility of malignant neoplasm of the breast. Pt c/o: had 2 bx on the left breast in the past benign and a cyst that's is being observed in the right breast, had genetic testing done 10 + yrs in [place], has fm hx of breast cancer, 4 maternal aunts and mother, yes to breast feeding with no complication, first child at age of 23 mm/us:10/08/24 (BRCA +) Upholstery Auto Trimmer Required: No Accompanied by: Family/Other Allergies levofloxacin Allergy (Severe, Verified 01/05/25 09:43) hives HPI Comments Details: 54-year-old female patient presenting for high-risk breast cancer examination. She was diagnosed with BRCA2 gene mutation over 10 years ago leading to increased surveillance with frequent mammogram and ultrasound examinations. She has a significant family history of breast cancer including her mother and 4 of her maternal aunts. Her mother was diagnosed in her 30s but subsequently from cardiac disease. Patient previously underwent a hysterectomy for fibroids and still has 1-1/2 ovaries remaining. She previously underwent a lap band procedure but this was subsequently removed followed by a sleeve gastrectomy. Patient has never undergone breast MRI. Her most recent mammogram performed on 09/17/2024 revealed a right breast area of increased density and subsequent diagnostic mammogram and ultrasound of the right breast on 10/08/2024 revealed a hypoechoic oval solid mass in the 8 o'clock position approximately 6 cm from the nipple felt to be low suspicion for malignancy and follow-up ultrasound was recommended in 6 months. Also a solid mass or possible cyst in the 9 o'clock position approximately 10 cm from the nipple was also low suspicion and a six-month follow-up ultrasound is recommended. Patient did have a previous left breast biopsy which was benign. Her menarche was at 11. She is 2 para 2. Her daughter was tested for BRCA and was negative however she did have issues with bone cancer and underwent surgery which preserved her leg. [facility] Medical History Contusion of left chest wall Lung mass COVID-19 Cervical mass Intercostal neuralgia Mixed connective tissue disease Transaminitis Sarcoidosis Class 2 severe obesity with body mass index (BMI) of 35 to 39.9 with serious comorbidity Closed fracture of phalanx of right fourth toe Toe fracture, right Right foot pain Toe pain, right Hot flashes Low libido Pre-op examination Adult general medical exam Diarrhea Screening for breast cancer Cervical cancer screening Screening for colon cancer 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, unspecified FDC systemic steroid user Pleuritic chest pain Sinusitis Headache Right ankle sprain Ankle pain Chest pain RUQ pain Thyroid nodule Lymphadenopathy Bradycardia Pneumonia BRCA gene positive Chronic idiopathic constipation Post herpetic neuralgia Multinodular thyroid [id number] syndrome Lump of left thigh ÁNGELA (obstructive sleep apnea) Insomnia ILD (interstitial lung disease) Sarcoidosis Dizziness SOB (shortness of breath) Surgical History H/O colonoscopy (~11/08/22) History of removal of ovarian cyst History of lung surgery History of breast biopsy Hx of abdominoplasty History of laparoscopic adjustable gastric banding History of tubal ligation History of section History of hysterectomy History of cholecystectomy Family History Father Cardiovascular disease Mother Cardiovascular disease Hypertension Thyroid condition History of breast cancer Daughter Thyroid condition Rheumatoid arthritis Sister Thyroid condition Brother Rheumatoid arthritis Maternal Aunt History of breast cancer Maternal Aunt History of breast cancer Maternal Aunt History of breast cancer Maternal Aunt History of breast cancer Social History Housing: House Alcohol intake: current Alcohol intake frequency: holidays/special occasions only Patient Tobacco Use Status: Former Tobacco user Tobacco use type: Cigarette Years Smoked: 15 years quit about 20 years ago e-Cigarette/Vaping Use: Never Used Second Hand Smoke Exposure: Yes service: No Current occupational status: unemployed Current occupation: rt handed Cognitive needs: No Hearing needs: No Vision needs: Yes (Glasses) Female Reproductive History Menstrual Age of Menarche: 11 Age of menopause: 38 Total pregnancies: 2 Number of Living Children: 2 Review of Systems Const All systems reviewed & are unremarkable except as noted in HPI and below Physical Exam Const General: cooperative and no acute distress Nutritional Appearance: well nourished Orientation/consciousness: patient oriented x3 Limitations: no limitations HEENT Head: Yes normocephalic and Yes atraumatic Ears: hearing grossly normal bilaterally Chest Other: Left breast: No skin change, no nipple retraction, no nipple discharge, no palpable mass, no enlarged lymph nodes. Right breast: No skin change, no nipple retraction, no nipple discharge, no palpable mass, no enlarged lymph nodes Resp Effort & Inspection: normal respiratory effort, no audible wheezes, no cough and no respiratory distress Cardio Jugular venous distension: no JVD GI Inspection: Yes normal to inspection Skin Other: Warm, dry, no rash Neuro General: patient oriented x3 Extrem General: Yes no clubbing, cyanosis or edema Assessment & Plan Assessment & Plan (1) BRCA gene positive: Code(s): Z15.01 - Genetic susceptibility to malignant neoplasm of breast; Z15.09 - Genetic susceptibility to other malignant neoplasm Category: Medical (2) At high risk for breast cancer: Code(s): Z91.89 - Other specified personal risk factors, not elsewhere classified Category: Medical (3) Family history of breast cancer: Code(s): Z80.3 - Family history of malignant neoplasm of breast Category: Medical Plan 54-year-old female patient determined to be at high risk for breast cancer with BRCA2 gene mutation. We discussed risks reduction strategies including bilateral prophylactic mastectomy with or without reconstruction. We also discussed additional screening with breast MRI as an adjunct to the screening mammogram and ultrasound. The patient will think about prophylactic mastectomy but was not ready to commit to the surgery. She was interested in proceeding with a breast MRI which was ordered today. I recommended continued close monitoring of asked her to return in approximately 6 months for follow-up examination. She is welcome to call sooner for any new concerns or questions. Orders: Orders MR breast BI wo/w con Today Z15.01 - Genetic susceptibility to malignant neoplasm of breast, Z15.09 - Genetic susceptibility to other malignant neoplasm, Z80.3 - Family history of malignant neoplasm of breast, Z91.89 - Other specified personal risk factors, not elsewhere classified Coding Level of Care Code New Pt Level 4 (63958) Diagnoses BRCA gene positive Z15.01; Z15.09 At high risk for breast cancer Z91.89 Family history of breast cancer Z80.3
[2025-01-05 09:46] VITALS: BP 121/73; PULSE 81; BMI 37.9
--- OUTSIDE RECORDS SUMMARY | 2025-01-05 10:38 | XMS_ITS | Encounter Summary ---
Author Organization [facility] Address [address] [place] [address] Phone Care Team Providers Care Yard Specialist Name Role Phone Royce Wild MD Primary Care Provid er Encounter Details Date Type Department Care Team (Late st Contact Info) Description 06/05/2024 Procedure Pass [facility] EKG [address] [place] [address] Social History Tobacco Use Types Packs/Day Years [...] Description 06/09/2025 3:00 PM EDT Office Visit [facility] Cardio Multispecialty [address] [place] [address] Caridad Smith MD [address] [place] [address] 5th [place] [address] [email or web address] documented as of this encounter Visit Diagnoses Not on filedocumented in this encounter Care Teams Yard Specialist Relationship Specialty Start Date End Date Royce Wild MD [address] [place] [address] PCP - General Internal Medicine 01/10/24 documented as of this encounter Additional Source Comments The information contained in this document represents components of the legal health record. It is not the complete legal health record.[facility]
--- OUTSIDE RECORDS SUMMARY | 2025-01-05 10:38 | XMS_ITS | Encounter Summary ---
Author Organization [facility] Address [address] [place] [address] Phone Care Team Providers Care Medical Office Scheduler Name Role Phone Royce Wild MD Primary Care Provid er Encounter Details Date Type Department Care Team (Late st Contact Info) Description 06/05/2024 Procedure Pass [facility] Echocardiography at [address] [address] Social History Tobacco Use Types Packs/Day Years [...] 06/09/2025 3:00 PM EDT Office Visit [facility] Cardio Multispecialty [address] [place] [address] Caridad Smith MD [address] [place] [address] 5th [place] [address] [email or web address] documented as of this encounter Visit Diagnoses Not on filedocumented in this encounter Care Teams Medical Office Scheduler Relationship Specialty Start Date End Date Royce Wild MD [address] [place] [address] PCP - General Internal Medicine 01/10/24 documented as of this encounter Additional Source Comments The information contained in this document represents components of the legal health record. It is not the complete legal health record.[facility]
--- OUTSIDE RECORDS SUMMARY | 2025-01-05 10:39 | XMS_ITS | Clinical Summary ---
Author Organization [facility] Address [address] [place] [address] Phone Care Team Providers Care Tubular Splitting Machine Tender Name Role Phone Royce Wild MD Primary [...] Description 06/09/2025 3:00 PM EDT Office Visit [facility] Cardio Multispecialty [address] [place] [address] Caridad Smith MD [address] [place] [address] 5th [place] [address] [email or web address] Health Maintenance Due Date Last Done Comments LIPID PANEL 1972 HEPATITIS C SCREENING 1990 HIV ONE-TIME SCREENING (18-65 YEARS) 1990 PAP SMEAR 1993 SCREENING FOR DIABETES 05/25/2007 MAMMOGRAM 2012 COLOGUARD 2017 COLONOSCOPY 2017 COLORECTAL CANCER SCREENING 2017 FIT TEST 2017 FOBT 2017 SIGMOIDOSCOPY 2017 VIRTUAL COLONOSCOPY 2017 COVID-19 VACCINE (3 - Pfizer risk series) 10/04/2020 09/06/2020, 08/16/2020 RSV VACCINE (1 - Risk 50-74 years 1-dose series) 2022 INFLUENZA VACCINE (#1) 2024 , 01/31/2023, 02/19/2022, [...] topic Medical Devices Not on file Insurance [facility] PPO [facility] OUT [facility] PPO BLUE CROSS OUT OF STATE PPO BLUE [employer]OSS OUT OF STATE PPO [employer]UE [employer]OSS OUT OF STATE PPO PPO Care Teams Tubular Splitting Machine Tender Relationship Specialty Start Date End Date Royce Wild MD [address] [place] [address] PCP - General Internal Medicine 01/10/24 Additional Source Comments The information contained in this document represents components of the legal health record. It is not the complete legal health record.[facility]
--- OUTSIDE RECORDS SUMMARY | 2025-01-05 10:40 | XMS_ITS | Clinical Summary ---
Author Organization [address] Address [address] [place] [id number] Care Team Providers Care Teleprinter Name Role Phone Unavailable Primary Care Provider [...] vaccine 10/02/2024 Covid-19 vaccine series ( - 2024- season) 2024 RSV Immunization (1 - 1-dose 75+ series) 05/25/2047 Meningococcal B Vaccine Aged Out No l onger eligible based on patient's age to complete this topic Meningococcal Vaccine Aged Out No lyssa merna eligible based on patient's age to complete this topic
--- OUTSIDE RECORDS SUMMARY | 2025-01-05 10:40 | XMS_ITS | Clinical Summary ---
Author Organization [facility] it Address [address] [place] [address] Care Team Providers Care Pattern Changer And Repairer Name Role Phone El Awan MD Primary Care Provider [phone] Surgical History Surgery Date Site/Laterality Comments SECTION PROCEDURE: HISTORICAL TUBAL LIGATION PROCEDURE: HISTORICAL TUBAL LIGATION HYSTERECTOMY PROCEDURE: HISTORICAL HYSTERECTOMY; COMMENT: for fibroids LAPAROSCOPIC GASTRIC BANDING 2005 PROCEDURE: LAP ADJUSTABLE GASTRIC BAND; COMMENT: insertion of adjustable band BELT ABDOMINOPLASTY 2009 PROCEDURE: HISTORICAL TUMMY TUCK UPPER GASTROINTESTINAL ENDOSCOPY 06/25/2018 PROCEDURE: UPPER GI ENDOSCOPY/EXAM; COMMENT: esophageal spasm, lap band, gastritis OTHER SURGICAL HISTORY 08/15/2018 PROCEDURE: NJ LAPS GASTRIC RESTRICTIVE PX REMOVE DEVICE & PORT; COMMENT: removal of adjustable band BREAST BIOPSY 06/09/2010 Left PROCEDURE: BX BREAST; PERC NEEDLE CORE W/IMAG GUID; COMMENT: apocrine metaplasia OTHER SURGICAL HISTORY Right PROCEDURE: NJ BRONCHOSCOPY W/TRANSBRONCHIAL LUNG BX EACH LOBE; COMMENT: RUL, RML - benign results BARIATRIC SURGERY 11/24/2018 PROCEDURE: NJ LAPS GSTRC RSTRICTIV PX LONGITUDINAL GASTRECTOMY; COMMENT: Sleeve Gastrectomy UPPER GASTROINTESTINAL ENDOSCOPY 08/05/2019 PROCEDURE: NJ UPPER GI ENDOSCOPY PERFORMED; COMMENT: biopsy pending [...] (BMI) of 40.0 to 44.9 in adult ([facility]/HCC V24, [facility]/H[facility] V28) 10/21/2018 DX:Class 3 severe obesity d ue to excess calories with serious comorbidity and body mass index (BMI) of 40.0 to 44.9 in adult ([facility]) Snoring 06/17/2018 DX:Snoring Sarcoidosis 05/04/2019 DX:Sarcoidosis [...] Documents on File Type Date Recorded Patient Americanization Teacher Expl anation Health Care Decision (hx) 11/18/2018 [...] (hx) 11/18/2018 AD ORELLANA DIRECTIVE Care Teams Pattern Changer And Repairer Relationship Specialty Start Date End Date El Awan MD [address] [place] [address] [address] [place] [address] PCP - General Internal Medicine 07/10/18
== END 2025-01-05 10:05 | disposition home or self-care (01) ==
LOC: HO.HGS 09:30
PROVIDERS: PCP Internal Medicine; Visit Provider Surgery
DX: Z15.01 Genetic susceptibility to malignant neoplasm of breast (principal); Z15.09 Genetic susceptibility to other malignant neoplasm; Z91.89 Other specified personal risk factors, not elsewhere classified; Z80.3 Family history of malignant neoplasm of breast
CPT/HCPCS: 99204

== ENCOUNTER 2025-01-06 16:03 | Outpatient (REF) | payer BC, SELFPAY ==
--- NOTE | ~2025-01-06 | CT_ITS ---
EXAMINATION: CT CHEST WITHOUT CONTRAST CLINICAL INFORMATION: R91.8 - Other nonspecific abnormal finding of lung field COMPARISON: June 28, 2024 TECHNIQUE: Multidetector volumetric CT imaging of the chest was done. Axial MIP volume rendering provided. Sagittal and coronal reformatted images were obtained. This CT examination was performed using dose optimization techniques as appropriate, variously including the following: *Automated exposure control *Adjustment of mA and/or kV according to patient size (this includes techniques or standardized protocols for targeted exams where dose is matched to indication/reason for exam; i.e. extremities or head) *Use of iterative reconstruction technique FINDINGS: LUNGS: Again seen is a mass anterior right upper lobe contacting the fissure. It measures 3.5 x 2.0 x 2.7 cm, previously 3.6 x 2.4 x 2.8 cm (AP by transverse by CC). It contains coarse calcifications, soft tissue density, and gross fat. Margins are very irregular and spiculated with peripheral nodularity. The lungs are clear otherwise. Right middle lobectomy has been performed. MEDIASTINUM: Unremarkable CORONARY ARTERY CALCIFICATION: None visualized on this study. PLEURA: There is no pleural effusion. No pleural mass or thickening. AXILLA: No lymphadenopathy. UPPER ABDOMEN: Changes from gastric sleeve surgery are present. OSSEOUS STRUCTURES: Unremarkable. CT/CT chest wo IV con IMPRESSION: Stable right upper lobe mass with coarse calcification in gross fat is most consistent with a pulmonary hamartoma. Fleischner guidelines were followed. Electronically signed by: Tamir Gentile MD 01/06/2025 04:54 PM EST
--- OUTSIDE RECORDS SUMMARY | 2025-01-06 18:48 | XMS_ITS | Clinical Summary ---
Author Organization [address] Address [address] [place] [id number] Care Team Providers Care Sodder Name Role Phone Unavailable Primary Care Provider [...]
--- OUTSIDE RECORDS SUMMARY | 2025-01-06 18:48 | XMS_ITS | Encounter Summary ---
Author Organization [facility] Address [address] [place] [address] Phone Care Team Providers Care Basting Puller Name Role Phone Royce Wild MD Primary Care Provid er Encounter Details Date Type Department Care Team (Late st Contact Info) Description 06/05/2024 Procedure Pass [facility] Echocardiography at [address] [address] Social History Tobacco Use Types Packs/Day Years [...] Description 06/09/2025 3:00 PM EDT Office Visit [facility] Cardio Multispecialty [address] [place] [address] Caridad Smith MD [address] [place] [address] 5th [place] [address] [email or web address] documented as of this encounter Visit Diagnoses Not on filedocumented in this encounter Care Teams Basting Puller Relationship Specialty Start Date End Date Royce Wild MD [address] [place] [phone] PCP - General Internal Medicine 01/10/24 documented as of this encounter Additional Source Comments The information contained in this document represents components of the legal health record. It is not the complete legal health record.[facility]
--- OUTSIDE RECORDS SUMMARY | 2025-01-06 18:48 | XMS_ITS | Clinical Summary ---
Author Organization [facility] it Address [address] [place] [address] Care Team Providers Care Aviation Technical Systems Specialist Name Role Phone El Awan MD Primary Care Provider [phone] Surgical History Surgery Date Site/Laterality Comments SECTION [...] (BMI) of 40.0 to 44.9 in adult ([facility]/H[facility] V24, [facility] V28) 10/21/2018 DX:Class 3 severe obesity d ue to excess calories with serious comorbidity and body mass index (BMI) of 40.0 to 44.9 in adult ([facility]) Snoring 06/17/2018 DX:Snoring Sarcoidosis 05/04/2019 DX:Sarcoidosis Family [...] Documents on File Type Date Recorded Patient Marketing Automation Analyst Expl anation Health Care Decision (hx) 11/18/2018 [...] 11/18/2018 AD ORELLANA DIRECTIVE Care Teams Aviation Technical Systems Specialist Relationship Specialty Start Date End Date El Awan MD [address] [place] [address] [address] [place] [address] PCP - General Internal Medicine 07/10/18
--- OUTSIDE RECORDS SUMMARY | 2025-01-06 18:48 | XMS_ITS | Clinical Summary ---
Author Organization [facility] Address [address] [place] [address] Phone Care Team Providers Care Archaeologist Name Role Phone Royce Wild MD Primary [...] Description 06/09/2025 3:00 PM EDT Office Visit [facility] Cardio Multispecialty [address] [place] [address] Caridad Smith MD [address] [place] [address] 5th [place] [address] [email or web address] Health Maintenance Due Date Last Done [...] topic Medical Devices Not on file Insurance [facility] PPO [facility] OUT [facility] PPO BLUE CROSS OUT OF STATE PPO BLUE CROSS OUT OF STATE PPO BLUE [employer]OSS OUT OF STATE PPO PPO Care Teams Archaeologist Relationship Specialty Start Date End Date Royce Wild MD [address] [place] [id number] PCP - General Internal Medicine 01/10/24 Additional Source Comments The information contained in this document represents components of the legal health record. It is not the complete legal health record.[facility]
--- OUTSIDE RECORDS SUMMARY | 2025-01-06 18:48 | XMS_ITS | Encounter Summary ---
Author Organization [facility] Address [address] [place] [address] Phone Care Team Providers Care Arts And Humanities Council Director Name Role Phone Royce Wild MD Primary Care Provid er Encounter Details Date Type Department Care Team (Late st Contact Info) Description 06/05/2024 Procedure Pass [facility] EKG [address] [place] [address] Social History Tobacco Use Types Packs/Day Years [...] Description 06/09/2025 3:00 PM EDT Office Visit [facility] Cardio Multispecialty [address] [place] [address] Caridad Smith MD [address] [place] [address] 5th [place] [address] [email or web address] documented as of this encounter Visit Diagnoses Not on filedocumented in this encounter Care Teams Arts And Humanities Council Director Relationship Specialty Start Date End Date Royce Wild MD [address] [place] [address] PCP - General Internal Medicine 01/10/24 documented as of this encounter Additional Source Comments The information contained in this document represents components of the legal health record. It is not the complete legal health record.[facility]
== END 2025-01-06 16:04 | disposition home or self-care (01) ==
LOC: HO.CT 16:03
PROVIDERS: PCP Internal Medicine; Visit Provider Hospitalist
DX: R91.8 Other nonspecific abnormal finding of lung field (principal)
CPT/HCPCS: 71250

== ENCOUNTER → 2025-01-06 16:05 | Outpatient (BNV) | payer BC, SELFPAY | PROVIDERS: PCP Internal Medicine; Visit Provider Radiology Diagnostic Radiology | DX: R91.8 Other nonspecific abnormal finding of lung field (principal) | CPT/HCPCS: 71250 ==

== ENCOUNTER 2025-02-08 11:38 | Outpatient (REF) | payer BC, SELFPAY ==
[2025-02-08 12:30] LABS: MANUAL DIFF FLAG NO
[2025-02-08 13:10] LABS: Hematocrit 41.9 % (37.0-47.0); Hemoglobin 14.3 g/dl (12.0-16.0); Imm Gran Abs Auto 0.02 X10*3/uL (0.00-0.03); Imm Gran Pct Auto 0.3 % (0.0-0.4); Lymphocytes Absolute Auto 2.2 X10*3/uL (1.2-4.9); Mean Corpuscular HGB Conc 34.1 g/dl (31.0-35.0); Mean Corpuscular Hemoglobin 30.2 pg (27.0-33.0); Mean Corpuscular Volume 88.6 fL (80.0-98.0); NRBC Abs Auto 0.000 X10*3/uL (0.0-0.012); NRBC Pct Auto 0.0 /100WBC (0.0-0.2); Platelet Count 254 X10*3/uL (160-400); Red Blood Count 4.73 X10*6/uL (4.20-5.50); White Blood Count 6.4 X10*3/uL (4.8-10.8)
[2025-02-08 13:54] LABS: Alanine Aminotransferase 33 U/L (0-31); Albumin Level 4.6 g/dL (3.5-5.0); Alkaline Phosphatase 112 U/L (39-117); Anion Gap 10 (12-20); Aspartate Amino Transferase 36 U/L (5-31); Blood Urea Nitrogen 12 mg/dL (9-16); Calcium 9.4 mg/dL (8.4-10.2); Carbon Dioxide 28 mmol/L (22-29); Chloride 106 mmol/L (96-108); Cholesterol 190 mg/dL (<200); Estimated Glomerular Filt Rate > 60; HDL Cholesterol 56 mg/dL (>40); Potassium 3.9 mmol/L (3.3-5.1); Sodium 140 mmol/L (135-145); Total Protein 7.7 g/dL (6.5-8.0); Triglycerides 169 mg/dL (<150)
[2025-02-08 14:00] LABS: Erythrocyte Sedimentation Rate 15 MM/HR (0-20)
== END 2025-02-08 11:39 | disposition home or self-care (01) ==
LOC: HO.LAB 11:38
PROVIDERS: Absent Provider Student in an Organized Health Care Education/Training Program; PCP Internal Medicine
DX: D86.9 Sarcoidosis, unspecified (principal); E78.00 Pure hypercholesterolemia, unspecified; I10 Essential (primary) hypertension; Z13.31 Encounter for screening for depression
CPT/HCPCS: 36415; 80053; 80061; 82164; 85025; 85652; 86140; 96127

== ENCOUNTER 2025-02-08 11:38 | Outpatient (AMB) | payer BC, SELFPAY ==
[2025-02-08 11:43] VITALS: BP 116/84; PULSE 64; TEMP 36.1; O2SAT 98; BMI 37.3
--- NOTE | 2025-02-08 11:43 | A.OFFPC_ITS ---
Vital Signs 02/08/25 11:43 Height 5 ft 2 in Weight 204 lb 2 oz BMI 37.3 BP 116/84 Blood Pressure Location Lt brachial Position Sitting Pulse 64 Pulse Source Pulse Oximeter Temp 97.0 F Temp Source Temporal Artery Scan Pulse Oximetry (%) 98 Oxygen Delivery Method Room Air Intake Visit Reasons: f/u weight loss Allergies levofloxacin Allergy (Severe, Verified 02/08/25 11:53) hives Medication List - Last Reconciled 02/08/25 by Vira Michele PA-C albuterol sulfate 90 mcg/actuation 2 puffs PO Q6H PRN albuterol sulfate 2.5 mg (3 mL) inhalation Q6H PRN [Blood pressure monitor As directed] budesonide 0.5 mg (2 mL) inhalation BID budesonide-formoterol 160-4.5 mcg/actuation 2 puffs PO BID cholecalciferol (vitamin D3) 125 mcg PO DAILY duloxetine 30 mg PO DAILY 30 days eszopiclone (Lunesta) 1 mg PO BEDTIME 90 days famotidine 40 mg PO BEDTIME folic acid 1 mg PO DAILY 90 days gabapentin 600 mg (2 x 300 mg) PO BEDTIME PRN 30 days infliximab (Remicade) 500 mg IV Q4W lidocaine 5% (Lidoderm) 1 patch topical DAILY 30 days ihwryr-chyphahu-kbaiwgi (pork) 36,000-114,000- 180,000 unit (Creon) 1 cap PO BID lisinopril 10 mg PO DAILY lubiprostone 16 mcg (2 x 8 mcg) PO BID meclizine 25 mg PO TID-QID mecobalamin (vitamin B12) 1,000 mcg sublingual DAILY methocarbamol 750 mg PO Q8H PRN nebulizers As directed omeprazole 40 mg PO DAILY prednisone 10 mg PO DIRECTED PRN simethicone 180 mg PO QID 30 days topiramate mg PO Tobacco use date assessed: 02/08/25 Dental Screening Dental Screen Date: 02/08/25 Did you have a dental visit in the last 12 months?: Yes Did you have a dental problem in the last 6 months where you did not have access to dental care?: No Was dental information given to patient?: Patient has dentist HPI f/u weight loss HPI Details 54-year-old female with past medical his tory of rheumatoid arthritis, interstitial lung disease, insomnia, obstructive sleep apnea, vertigo, fibromyalgia, IBS, GERD and hypertension last seen 11/2024 coming in for follow up. In review of the notes, patient was seen by General surgery 01/2025 for high-risk of breast cancer plan for MRI of the breast. Seen by GI 11/2024 continue on regimen and follow up in 6 weeks. Presenting for a follow-up visit. The patient was previously on Wegovy 0.25 mg for four weeks for weight loss, which she tolerated well with only a little diarrhea, which is normal for her, and she reports less diarrhea than before. She has lost 6 pounds since her last visit. There was confusion regarding insurance approval, and she was unable to garbage pick up man her last prescription and obtained it through a third alliance party. The patient has a history of severe lung pain from nerve damage and was prescribed oxycodone by her credit collection specialist, Dr. Briggs. She reports being upset with Dr. Briggs's office after a staff member allegedly told her insurance territory manager that she was abusing the medication, leading her to seek a new credit collection specialist. She has a stable right- sided lung mass confirmed on a recent CT scan. For sleep, the patient uses Lunesta, prescribed by Dr. Briggs, and reports her sleep is off and on. [facility] Medical History Contusion of left chest wall Lung mass COVID-19 Cervical mass Intercostal neuralgia Mixed connective tissue disease Transaminitis Sarcoidosis Class 2 severe obesity with body mass index (BMI) of 35 to 39.9 with serious comorbidity Closed fracture of phalanx of right fourth toe Toe fracture, right Right foot pain Toe pain, right Hot flashes Low libido Pre-op examination Adult general medical exam Diarrhea Screening for breast cancer Cervical cancer screening Screening for colon cancer 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, unspecified nursing home systemic steroid user Pleuritic chest pain Sinusitis Headache Right ankle sprain Ankle pain Chest pain RUQ pain Thyroid nodule Lymphadenopathy Bradycardia Pneumonia BRCA gene positive Chronic idiopathic constipation Post herpetic neuralgia Multinodular thyroid 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 syndrome Lump of left thigh ÁNGELA (obstructive sleep apnea) Insomnia ILD (interstitial lung disease) Sarcoidosis Dizziness SOB (shortness of breath) Surgical History H/O colonoscopy (~11/08/22) History of removal of ovarian cyst History of lung surgery History of breast biopsy Hx of abdominoplasty History of laparoscopic adjustable gastric banding History of tubal ligation History of section History of hysterectomy History of cholecystectomy Family History Father Cardiovascular disease Mother Cardiovascular disease Hypertension Thyroid condition History of breast cancer Daughter Thyroid condition Rheumatoid arthritis Sister Thyroid condition Brother Rheumatoid arthritis Maternal Aunt History of breast cancer Maternal Aunt History of breast cancer Maternal Aunt History of breast cancer Maternal Aunt History of breast cancer Social History Housing: House Alcohol intake: current Alcohol intake frequency: holidays/special occasions only Patient Tobacco Use Status: Former Tobacco user Tobacco use type: Cigarette Years Smoked: 15 years quit about 20 years ago e-Cigarette/Vaping Use: Never Used Second Hand Smoke Exposure: Yes service: No Current occupational status: unemployed Current occupation: rt handed Cognitive needs: No Hearing needs: No Vision needs: Yes (Glasses) Female Reproductive History Menstrual Age of Menarche: 11 Questionnaire PHQ-9 Over the last 2 weeks, how often have you been bothered by any of the following problems? 1. Little interest or pleasure in doing things: not at all 2. Feeling down, depressed, or hopeless: not at all 3. Trouble falling or staying asleep, or sleeping too much: nearly every day 4. Feeling tired or having little energy: not at all 5. Poor appetite or overeating: not at all 6. Feeling bad about yourself - or that you are a failure or have let yourself or your family down: not at all 7. Trouble concentrating on things, such as reading the newspaper or watching television: not at all 8. Moving or speaking so slowly that other people could have noticed. Or the opposite - being so fidgety or restless that you have been moving around a lot more than usual: not at all 9. Thoughts that you would be better off or of hurting yourself in some way: not at all Total score: 3 Depression Screening Interpretation: Negative Depression Screening Done: Yes Source: Developed by Drs. Terence Diaz, Leila Hawk, Jani Osborn and colleagues, with an educational ashley from [employer]. Thrive Questionnaire Date Thrive assessed: 07/09/24 I am a: Patient What is your living situation today?: I have a steady place to live Within the past 12 months, did the food you bought not last and you didn't have the money to get more?: Never true Within the past 12 months, did you worry whether your food would run out before you got money to buy more?: Never true Do you have trouble paying for medicines?: No Do you have trouble getting transportation to medical appointments?: No Do you have trouble paying your heating and electricity bill?: No Do you have trouble taking care of your child, family member or friend?: No Do you have trouble with day-to-day activities such as bathing, preparing meals, shopping, managing finances, etc.?: I choose not to answer this question Are you currently unemployed and looking for a job?: I choose not to answer this question Are you interested in more education?: Yes Please select the resources that you would like help with: None THRIVE Score: 0 AUDIT C Alcohol Use Questionnaire (AUDIT-C) 1. How often do you have a drink containing alcohol?: Monthly or less 2. How many drinks containing alcohol do you have on a typical day when you are drinking?: 1 or 2 3. How often do you have six or more drinks on one occasion?: Never Total Score: 1 YENNI-7 AMB Questionnaire YENNI-7 Date YENNI - 7 assessed: 07/10/24 Feeling nervous, anxious, or on edge: 0 = Not at all Not being able to stop or control worryin = Not at all Worrying too much about different things: 0 = Not at all Trouble relaxin = Not at all Being so restless that it is hard to sit still: 0 = Not at all Becoming easily annoyed or irritable: 0 = Not at all Feeling afraid as if something awful might happen: 0 = Not at all Total YENNI-7 score (0-4 normal; 5-9 mild; 10-14 moderate; 15-21 severe): 0 Source: Developed by Drs. Terence Diaz, Leila Hawk, Jani Osborn and colleagues, with an educational ashley from [employer]. Review of Systems Const Denies body aches, Denies chills, Denies fever(s) and Denies poor appetite Eyes Reports no additional complaints ENT Denies dysphagia, Denies dizziness and Denies odynophagia Card Denies chest pain, Denies edema, Denies lightheadedness and Denies dyspnea Resp Denies cough and Denies dyspnea GI Denies abdominal pain, Denies dysphagia, Denies nausea, Denies odynophagia and Denies vomiting Reports no additional complaints Musc Reports no additional complaints and Denies abnormal gait Skin/Breast Reports system reviewed and no additional complaints, except as documented Neuro Denies abnormal gait and Denies dizziness Psych Reports no additional complaints Physical exam (Primary Care) Vital Signs: Last Vital Signs Temp 97.0 F 02/08/25 11:43 Pulse 64 02/08/25 11:43 BP 116/84 02/08/25 11:43 Pulse Ox 98 02/08/25 11:43 Oxygen Delivery Method Room Air 02/08/25 11:43 BMI result Body Mass Index 37.3 Tobacco/Smoking Status: Tobacco use Status Tobacco use date assessed 02/08/25 02/08/25 11:47 Patient Tobacco Use Status Former Tobacco user 02/08/25 11:47 Tobacco use type Cigarette 02/08/25 11:47 e-Cigarette/Vaping Use Never Used 02/08/25 11:47 PHQ-9: PHQ-9 Score PHQ-9: Total score 3 02/08/25 11:50 Depression Screening Interpretation: Negative Thrive Assessment: Date of Thrive Assessment Date Thrive assessed 07/09/24 02/08/25 11:47 Const General: cooperative, healthy appearing, comfortable and no acute distress Orientation/consciousness: patient oriented x3 HENMT Head: Yes normocephalic Ears: hearing grossly normal bilaterally General nose exam: Normal external nose present Eyes General: appearance normal, both eyes and all related structures Conjunctivae: conjunctivae normal Neck Neck: Yes full ROM and Yes no lymphadenopathy Resp Effort & Inspection: normal respiratory effort Auscultation: clear to auscultation bilaterally, no crackles, no rales, no rhon chi and no wheezes Cardio Rate: regular rate Rhythm: regular rhythm Skin General skin exam: no rashes or lesions noted Neuro General: patient oriented x3 Gait exam (Neuro): Normal gait present Extrem General: Yes normal to inspection, Yes full ROM and No edema Psych Affect: normal affect Attitude: cooperative Insight: Good insight present (Psych) Judgement: Good judgement present (Psych) Coding Level of Care Code Est Pt Level 3 (92390) Diagnoses Primary hypertension I10 Hypertension type: primary hypertension Class 2 severe obesity with body mass index (BMI) of 35 to 39.9 with serious comorbidity E66.01 GERD (gastroesophageal reflux disease) K21.9 Irritable bowel syndrome with both constipation and diarrhea K58.2 Seropositive rheumatoid arthritis M05.9 ILD (interstitial lung disease) J84.9 Primary insomnia F51.01 Insomnia type: primary ÁNGELA (obstructive sleep apnea) G47.33 Assessment & Plan Assessment & Plan (1) Hypertension: Code(s): I10 - Essential (primary) hypertension Category: Medical Qualifiers: Hypertension type: primary hypertension Qualified Code(s): I10 - Essential (primary) hypertension Plan: Continue on current blood pressure medication. Avoid salt intake and encourage healthy diet and regular exercise. (2) Class 2 severe obesity with body mass index (BMI) of 35 to 39.9 with serious comorbidity: Code(s): E66.01 - Morbid (severe) obesity due to excess calories Category: Medical Plan: Healthy diet and regular exercise is encouraged. A new prescription for Wegovy 0.5 mg will be sent to the pharmacy for weight management. The patient reported a 6-pound weight loss with the 0.25 mg dose. Will follow up in three months for a weight check. She completed the 0.25 mg for week course of Wegovy (3) GERD (gastroesophageal reflux disease): Code(s): K21.9 - Gastro-esophageal reflux disease without esophagitis Category: Medical Plan: Avoid trigger foods such as citrus, tomato products, soda, caffeine, spicy foods and other foods that may be irritating to your stomach. Avoid laying flat 3-4 hours after eating and elevate the head of the bed 30 degrees to prevent acid from moving into the esophagus. Continue on PPI (4) Irritable bowel syndrome with both constipation and diarrhea: Code(s): K58.2 - Mixed irritable bowel syndrome Category: Medical Plan: Continue to follow up with GI and continue on current medication regimen. (5) Seropositive rheumatoid arthritis: Comment: +++RF+++CCP Onset early 2014. SSZ started 02/15 - stopped due diarrhea MTX taken briefly 2015- May 2015? MTX restarted 07/18- changed to SC Dec 2016 due to nausea Humira added 02/18 to methotrexate. Both stopped 04/22 due to infection. Humira was suspected to have caused lung issues (?drug induced sarcoid) MTX and Humira remained held 03/23 04/23: Cellcept started by pulmonary - GI side effects, confusion so it was stopped 07/21 methotrexate and Humira restarted stopped sometime in 2020 Imuran briefly, not sure what happened with that 2020 [employer] attempted got denied. Approved 07/2022, started 01/2023 effective Code(s): M05.9 - Rheumatoid arthritis with rheumatoid factor, unspecified Category: Medical Plan: The patient is receiving Remicade infusions for rheumatoid arthritis. Headaches have been reported, possibly related to the infusions. Monitoring for side effects and ongoing management with the insurance territory manager are recommended. (6) ILD (interstitial lung disease): Code(s): J84.9 - Interstitial pulmonary disease, unspecified Category: Medical Plan: Patient is currently in the process of looking for new credit collection specialist in [place]. She will reach out to the office with the name for new credit collection specialist and we can help facilitate the transfer medical records (7) Insomnia: Code(s): G47.00 - Insomnia, unspecified Category: Medical Qualifiers: Insomnia type: primary Qualified Code(s): F51.01 - Primary insomnia Plan: Plan to increase Lunesta 2 mg for improved sleep (8) ÁNGELA (obstructive sleep apnea): Code(s): G47.33 - Obstructive sleep apnea (adult) (pediatric) Category: Medical Plan: Not currently using CPAP. Continue to follow up with pulmonology. She would benefit from weight loss Plan This note was constructed using voice recognition software. While every effort has been made to ensure accuracy and microstrategy developer, still areas may have been included sometimes these areas may affect the content or meeting of the given symptoms. Total time spent caring for the patient today was 20 minutes. This includes time spent before the visit reviewing the chart, time spent during the visit, and time spent after the visit and documentation. Patient was informed and verbally consented to the use of an ambient scribe for clinic note documentation during this visit. Orders: Orders Lipid Panel Today E78.00 - Pure hypercholesterolemia, unspecified Medications: New semaglutide (weight loss) (Eva) administer weeks 5 through 8 of therapy; prev completed 0.25 0.5 mg (0.5 mL) subcut QWEEK 2 mL 0RF E66.01 - Morbid (severe) obesity due to excess calories, G47.33 - Obstructive sleep apnea (adult) (pediatric) eszopiclone (Lunesta) 2 mg PO BEDTIME 30 tabs 0RF Discontinued eszopiclone (Lunesta) Discontinued Reason: Patient no longer taking 1 mg PO BEDTIME 90 days 90 tabs 0RF
== END 2025-02-08 12:14 | disposition home or self-care (01) ==
LOC: HO.HMCH 11:39
PROVIDERS: PCP Internal Medicine
DX: J84.9 Interstitial pulmonary disease, unspecified (principal); E66.01 Morbid (severe) obesity due to excess calories; M05.9 Rheumatoid arthritis with rheumatoid factor, unspecified; Z68.37 Body mass index [BMI] 37.0-37.9, adult; I10 Essential (primary) hypertension; K21.9 Gastro-esophageal reflux disease without esophagitis; K58.2 Mixed irritable bowel syndrome; F51.01 Primary insomnia; G47.33 Obstructive sleep apnea (adult) (pediatric)

== ENCOUNTER 2025-02-11 11:36 | Outpatient (AMB) | payer BC, SELFPAY ==
--- NOTE | 2025-02-11 11:51 | MHC.OFFVIS ---
Vital Signs 02/11/25 11:56 Height 5 ft 2 in Weight 204 lb 9.423 oz BMI 37.4 BP 115/72 Blood Pressure Location Lt brachial Position Sitting Pulse 69 Pulse Source Pulse Oximeter Pulse Oximetry (%) 100 Oxygen Delivery Method Room Air Intake Visit Reasons: 4 months Intake Note: Patient presents today for RA follow up and test results. Gyroscope Repairer Required: No Information Interpreted: non-clinical & clinical Accompanied by: Self / Same As Patient Allergies levofloxacin Allergy (Severe, Verified 02/11/25 11:55) hives HPI Comments Details: Patient is a 54-year-old female with asthma, GERD, IBS with constipation and diarrhea, seropositive rheumatoid arthritis and sarcoidosis complicated by ILD here today for follow up Interval History: Patient last seen 10/09/24 with me - On Remicade infusions 3mg/kg every 8 weeks - Did well with the induction period but notes that prior to the 8 weeks she notes that she gets flares with pain in her toes, fingers, prolonged AM stiffness, bilateral hip pain - Also noted that she has had increased blood pressure and increased headache since starting the infusion - Increasingly forgetful - Remicade 5mg/kg every 4 weeks Today - On Remicade 5mg/kg every 4 weeks - presenting for a follow-up visit to monitor her response to Remicade therapy. - She recently started Remicade after resolving prior insurance issues and has received two doses at 5 mg on January 06 and February 05, with infusions scheduled every four weeks. - She reports ongoing pain in her joints, including her feet, but feels it is improving. - A prescription for leflunomide was previously sent in October but she did not start it - Her lab history is notable for elevated liver enzymes, which were as high as 170 at one point, but have since improved. - She also reports that her blood pressure is now normal, whereas it was previously elevated. Rheumatologic History: Patient initially diagnosed with rheumatoid arthritis 2014 +++RF+++CCP Onset early 2014. SSZ started 02/15 - stopped due diarrhea MTX taken briefly 2015- May 2015? MTX restarted 07/18- changed to SC Dec 2016 due to nausea Humira added 02/18 to methotrexate. Both stopped 04/22 due to infection. Humira was suspected to have caused lung issues (?drug induced sarcoid) MTX and Humira remained held 03/23 04/23: Cellcept started by pulmonary for ILD/sarcoidosis - GI side effects, confusion so it was stopped 07/21 methotrexate and Humira restarted stopped sometime in 2020 Imuran briefly, not sure what happened with that 2020 [employer] angel leona got denied. Approved 07/2022, started 01/2023 effective ILD vs Sarcoidosis In 2019 she had in navigation bronchoscopy with biopsy which showed some findings suspicious for sarcoidcosis. She had another wedge resection biopsy which showed organizing pneumonia, non necrotizing granulomas. She had a cardiac PET scan ordered by Dr. Briggs after a cardiac event in 2020 which did not show features of cardiac sarcoidosis. She was evaluated by Dr. Ricks in [place] and the overall assessment was she does not have classic sarcoidosis. Despite this she is currently being followed by Pulmonary for sarcoid/ILD Current Rheumatology Medication(s): Remicade infusions 5mg/kg every 4 weeks Prednisone varying doses daily PFS Medical History Contusion of left chest wall Lung mass COVID-19 Cervical mass Intercostal neuralgia Mixed connective tissue disease Transaminitis Sarcoidosis Class 2 severe obesity with body mass index (BMI) of 35 to 39.9 with serious comorbidity Closed fracture of phalanx of right fourth toe Toe fracture, right Right foot pain Toe pain, right Hot flashes Low libido Pre-op examination Adult general medical exam Diarrhea Screening for breast cancer Cervical cancer screening Screening for colon cancer 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, unspecified 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 Pleuritic chest pain Sinusitis Headache Right ankle sprain Ankle pain Chest pain RUQ pain Thyroid nodule Lymphadenopathy Bradycardia Pneumonia BRCA gene positive Chronic idiopathic constipation Post herpetic neuralgia Multinodular thyroid 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 Lump of left thigh ÁNGELA (obstructive sleep apnea) Insomnia ILD (interstitial lung disease) Sarcoidosis Dizziness SOB (shortness of breath) Surgical History H/O colonoscopy (~11/08/22) History of removal of ovarian cyst History of lung surgery History of breast biopsy Hx of abdominoplasty History of laparoscopic adjustable gastric banding History of tubal ligation History of section History of hysterectomy History of cholecystectomy Family History Father Cardiovascular disease Mother Cardiovascular disease Hypertension Thyroid condition History of breast cancer Daughter Thyroid condition Rheumatoid arthritis Sister Thyroid condition Brother Rheumatoid arthritis Maternal Aunt History of breast cancer Maternal Aunt History of breast cancer Maternal Aunt History of breast cancer Maternal Aunt History of breast cancer Social History Housing: House Alcohol intake: current Alcohol intake frequency: holidays/special occasions only Patient Tobacco Use Status: Former Tobacco user Tobacco use type: Cigarette Years Smoked: 15 years quit about 20 years ago e-Cigarette/Vaping Use: Never Used Second Hand Smoke Exposure: Yes service: No Current occupational status: unemployed Current occupation: rt handed Cognitive needs: No Hearing needs: No Vision needs: Yes (Glasses) Female Reproductive History Menstrual Age of Menarche: 11 Review of Systems Const Details: Review of Systems - Musculoskeletal: Reports ongoing pain in her joints and feet, but notes it is getting better. - Cardiovascular: Reports her blood pressure is now normal. All other systems reviewed and are unremarkable except noted above Physical Exam Exam Exam: Vital signs reviewed Physical Examination CONSTITUITIONAL Patient alert and cooperative. Well appearing and in no apparent painful distress MSK Hands Right Hand: Able to make a fist. No swelling or tenderness to palpation of the MCPs, PIPs or DIPs. Left Hand: Able to make a fist. No swelling or tenderness to palpation of the MCPs, PIPs or DIPs. Wrists Right Wrist: Full ROM to flexion and extension. No swelling or TTP Left Wrist: Full ROM to flexion and extension. No swelling or TTP Elbows Right Elbow: Full ROM. No swelling or TTP. No TTP of the medial epicondyle. No TTP of the lateral epicondyle Left Elbow: Full ROM. No swelling or TTP. No TTP of the medial epicondyle. No TTP of the lateral epicondyle Shoulders Right shoulder: Full ROM. No swelling noted. No TTP of the AC joint. No TTP of the subacromial bursa. No TTP of the posterior shoulder Left shoulder: Full ROM. No swelling noted. No TTP of the AC joint. No TTP of the subacromial bursa. No TTP of the posterior shoulder Knees Right knee: Full ROM. No swelling noted. No TTP of the knee joint line. No TTP of pes anserine bursa Left knee: Full ROM. No swelling noted. No TTP of the knee joint line. No TTP of pes anserine bursa. Ankles Right ankle: Good ankle dorsiflexion and plantar flexion. No swelling. No TTP of the ankle joint Left ankle: Good ankle dorsiflexion and plantar flexion. No swelling. No TTP of the ankle joint Feet Right foot: Negative squeeze test Left foot: Negative squeeze test SKIN No rashes Vital Signs: Last Vital Signs Pulse 69 02/11/25 11:56 BP 115/72 02/11/25 11:56 Pulse Ox 100 02/11/25 11:56 Oxygen Delivery Method Room Air 02/11/25 11:56 BMI result Body Mass Index 37.4 Results Reviewed Results Reviewed: Laboratory Tests 06/19/24 02/08/25 15:25 12:29 WBC 6.4 RBC 4.73 Hgb 14.3 Hct 41.9 Plt Count 254 ESR 15 Sodium 140 Potassium 3.9 Chloride 106 Carbon Dioxide 28 BUN 12 Creatinine 0.63 AST 36 H ALT 33 H C-Reactive Protein < 0.04 Angiotensin Convert Enz 21 Pending Laboratory Tests 06/19/24 15:25 Hep Bs Antigen Negative Hep Bs Antibody NONREACTIVE Hep B Core Total Ab Nonreactive Hepatitis C Ab (EIA) Nonreactive TB Test (T-Spot) Com Negative Assessment & Plan Assessment & Plan (1) Seropositive rheumatoid arthritis: Comment: +++RF+++CCP Onset early 2014. SSZ started 02/15 - stopped due diarrhea MTX taken briefly 2015- May 2015? MTX restarted 07/18- changed to SC Dec 2016 due to nausea Humira added 02/18 to methotrexate. Both stopped 04/22 due to infection. Humira was suspected to have caused lung issues (?drug induced sarcoid) MTX and Humira remained held 03/23 04/23: Cellcept started by pulmonary - GI side effects, confusion so it was stopped 07/21 methotrexate and Humira restarted stopped sometime in 2020 Imuran briefly, not sure what happened with that 2020 Orencia attempted got denied. Approved 07/2022, started 01/2023 effective Code(s): M05.9 - Rheumatoid arthritis with rheumatoid factor, unspecified Category: Medical Plan: #Seropositive RA Patient is a 54-year-old female with seropositive rheumatoid arthritis here today for follow up. The patient has received two doses of Remicade and reports her joint pain is getting better, although it persists. A significant improvement is anticipated after three to four months of consistent therapy. She will continue Remicade 5 mg infusions every four weeks. A low dose of leflunomide will be added to prevent antibody formation against the Remicade, and a new prescription will be sent. Plan - Infliximab infusions 5mg/kg maintenance every 4 weeks - Add leflunomide 10mg to prevent antibody generation - RTC 4 months - Labs before visit: CBC, CMP, ESR, CRP, MARLY level (2) Sarcoidosis: Comment: Sarcoid like reaction secondary auto-immune disease versus a medication reaction while taking the TNF inhibitor 2019 lung biopsy with non caseating granulomas Code(s): D86.9 - Sarcoidosis, unspecified Category: Medical Plan: #Sarcoidosis Patient with lung biopsy showing noncaseating granulomas without any other extra pulmonary evidence of sarcoid. No cardiac sarcoid or any skin changes at this time. Given the concern for potential sarcoidosis, I think the next treatment in the management of her rheumatoid arthritis should be a treatment that encompasses both sarcoid and rheumatoid arthritis which is infliximab. (3) Encounter for monitoring of infliximab therapy: Code(s): Z51.81 - Encounter for therapeutic drug level monitoring; Z79.620 - jail (current) use of immunosuppressive biologic Plan: #Long-term Use of TNF Inhibitors: Infliximab Discussed with the patient the benefits and risks of TNF inhibitors for the management of the rheumatic condition Benefits include reduce pain, maintenance of remission and reduction of flares as well as progression of the disease Risks include injection sites/infusion reactions, serious infections (such as bacterial infections, opportunistic infections), malignancy, delaminating syndromes, autoimmune phenomena, CHF exacerbations, palmar plantar psoriasis and cytopenias Recommended holding medication during and for up to 1 week after resolution of a febrile illness or open skin wound Plan I discussed with the patient that she has received two doses of Remicade and is showing some early improvement in her joint pain. I explained that a more significant improvement is expected after three to four months of consistent therapy. I recommended adding a low dose of leflunomide to her regimen. I explained that Remicade is highly antigenic and that leflunomide will help prevent her body from developing antibodies and rejecting the medication. We reviewed her recent lab results, noting that her liver enzymes have improved, though not yet to goal, and that her inflammatory markers and kidney function are good. I spent 35 minutes reviewing the record and labs, taking a history, examining the patient, discussing the treatment plan, ordering diagnostic work up and documenting in the medical record Medications: New leflunomide 10 mg PO DAILY 90 tabs 1RF D86.9 - Sarcoidosis, unspecified Coding Level of Care Code Est Pt Level 4 (78271) Add On Problem Visit Only Diagnoses Seropositive rheumatoid arthritis M05.9 Sarcoidosis D86.9 Encounter for monitoring of infliximab therapy Z51.81; Z79.620
[2025-02-11 11:56] VITALS: BP 115/72; PULSE 69; O2SAT 100; BMI 37.4
--- OUTSIDE RECORDS SUMMARY | 2025-02-11 18:08 | XMS_ITS | Encounter Summary ---
Author Organization [facility] Address [address] [place] [address] Phone Care Team Providers Care Office Copy Selector Name Role Phone Royce Wild MD Primary Care Provid er Encounter Details Date Type Department Care Team (Late st Contact Info) Description 06/05/2024 Procedure Pass [facility] EKG [address] [place] [address] Social History Tobacco Use Types Packs/Day Years [...] [facility] Cardio Multispecialty [address] [place] [address] Caridad Smith MD [address] [place] [address] 5th [place] [address] [email or web address] documented as of this encounter Visit Diagnoses Not on filedocumented in this encounter Care Teams Office Copy Selector Relationship Specialty Start Date End Date Royce Wild MD [address] [place] [id number] PCP - General Internal Medicine 01/10/24 documented as of this encounter Additional Source Comments The information contained in this document represents components of the legal health record. It is not the complete legal health record.[facility]
--- OUTSIDE RECORDS SUMMARY | 2025-02-11 18:08 | XMS_ITS | Clinical Summary ---
Author Organization [address] Address [address] [place] [id number] Care Team Providers Care Psychiatric Nursing Assistant Name Role Phone Unavailable Primary Care Provider [...]
--- OUTSIDE RECORDS SUMMARY | 2025-02-11 18:08 | XMS_ITS | Encounter Summary ---
Author Organization [facility] Address [address] [place] [address] Phone Care Team Providers Care Technical Specialist Cytology Name Role Phone Royce Wild MD Primary Care Provid er Encounter Details Date Type Department Care Team (Late st Contact Info) Description 06/05/2024 Procedure Pass [facility] Echocardiography at [address] [address] Social History Tobacco Use Types Packs/Day Years [...] 06/09/2025 3:00 PM EDT Office Visit [facility] Cardio Multispecialty [address] [place] [address] Caridad Smith MD [address] [place] [address] 5th [place] [address] [email or web address] documented as of this encounter Visit Diagnoses Not on filedocumented in this encounter Care Teams Technical Specialist Cytology Relationship Specialty Start Date End Date Royce Wild MD [address] [place] [id number] PCP - General Internal Medicine 01/10/24 documented as of this encounter Additional Source Comments The information contained in this document represents components of the legal health record. It is not the complete legal health record.[facility]
--- OUTSIDE RECORDS SUMMARY | 2025-02-11 18:08 | XMS_ITS | Clinical Summary ---
Author Organization [facility] Address [address] [place] [address] Phone Care Team Providers Care Wood Heel Flap Rubber Name Role Phone Royce Wild MD Primary [...] Description 06/09/2025 3:00 PM EDT Office Visit [facility] Cardio Multispecialty [address] [place] [address] Caridad Smith MD [address] [place] [address] [address] [place] [address] [email or web address] Health Maintenance Due Date Last Done Comments [...] topic Medical Devices Not on file Insurance [facility] PPO [facility] OUT [facility] PPO [employer] OUT OF STATE PPO BL[employer] [place] OUT OF STATE PPO [employer] OUT OF STATE PPO PPO Care Teams Wood Heel Flap Rubber Relationship Specialty Start Date End Date Royce Wild MD [address] [place] [id number] PCP - General Internal Medicine 01/10/24 Additional Source Comments The information contained in this document represents components of the legal health record. It is not the complete legal health record.[facility]
== END 2025-02-11 12:47 | disposition home or self-care (01) ==
LOC: HO.RHES 11:36
PROVIDERS: PCP Internal Medicine; Visit Provider Student in an Organized Health Care Education/Training Program
DX: M05.9 Rheumatoid arthritis with rheumatoid factor, unspecified (principal); D86.9 Sarcoidosis, unspecified; Z51.81 Encounter for therapeutic drug level monitoring; Z79.620 Long term (current) use of immunosuppressive biologic
CPT/HCPCS: 99214